=== PATIENT | female | born 1945 | race Caucasian/White ===

== ENCOUNTER → 2020-01-21 12:57 | Outpatient (CLI) | payer MEDICARE, SELFPAY ==
--- NOTE | ~2020-01-21 | MR_ITS ---
EXAMINATION: MR lumbar spine wo con DATE: 01/21/2020 14:15 INDICATION: Lumbago. Left-sided sciatica. TECHNIQUE: Magnetic resonance imaging (MRI) of the lumbar spine was performed without intravenous con trast. Sequences included sagittal T2-weighted FSE, sagittal T2-weighted FS FSE, sagittal STIR FSE, s agittal T1-weighted FSE, and axial T2-weighted FSE. COMPARISON: Lumbar spine MRI 03/24/2015 FINDINGS: There is 8 degrees levocurvature of lumbar spine. There is 3 mm retrolisthesis of L2 on L3, 4 mm anterolisthesis of L4 on L5, and 4 mm anterolisthesis of L5 on S1. There is a chronic compressi on fracture of L5 with changes of vertebroplasty. There are changes of posterior fusion procedure fro m L4 to S1 with pedicle screws. There is mildly decreased disc height at L2-L3, moderately decreased disc height at L3-L4 and L4-L5, and severely decreased disc height at L5-S1. The distal spinal cord s ignal intensity is normal. The conus medullaris is at L1-L2. The following disc levels are specifical ly discussed: L1-L2: The disc is bulging. There is mild bilateral facet joint osteoarthritis. There is mild left ne ural foraminal stenosis. There is mild central canal stenosis. L2-L3: The disc is bulging and has an annular fissure. There is mild bilateral facet joint osteoarthr itis. There is mild bilateral neural foraminal stenosis. There is mild central canal stenosis. L3-L4: The disc is bulging. There is severe bilateral facet joint osteoarthritis. There is moderate b ilateral neural foraminal stenosis. There is severe central canal stenosis. L4-L5: The disc is bulging and has an annular fissure. There is severe bilateral facet joint hypertro phy. There is mild bilateral neural foraminal stenosis. There is mild central canal stenosis with pos terior decompression. L5-S1: The disc is bulging and has an annular fissure. There is moderate bilateral facet joint hypert rophy. There is mild bilateral neural foraminal stenosis. There is mild central canal stenosis. IMPRESSION: 1. Severe lumbar spondylosis, worsened from 03/24/2015. 2. Posterior fusion procedure from L4 to S1. Reviewed, dictated and finalized at location A.
== END ==
PROVIDERS: PCP Nurse Practitioner Family; Visit Provider Nurse Practitioner
DX: M54.42 Lumbago with sciatica, left side (principal); M47.896 Other spondylosis, lumbar region; Z98.1 Arthrodesis status
CPT/HCPCS: 72148

== ENCOUNTER 2020-02-19 09:08 | Outpatient (CLI) | payer MEDICARE, SELFPAY ==
--- NOTE | ~2020-02-19 | MM_ITS ---
EXAMINATION: MM screening [facility] BI w aaron HISTORY: Screening mammogram TECHNIQUE: Craniocaudal and mediolateral oblique 3-D tomosynthesis images were obtained and synthetic 2-D images were generated. CAD analysis was submitted and interpreted. COMPARISON: 02/16/2019, 02/10/2018, 01/31/2017 BREAST PARENCHYMAL COMPOSITION: There are scattered areas of fibroglandular density. FINDINGS: There is no evidence of suspicious mass, calcification, or architectural distortion to sugg est malignancy in either breast. There has been no suspicious interval change. IMPRESSION: 1. No mammographic evidence of malignancy. 2. Recommend routine screening mammography in one year. BI-RADS Category 1: Negative Reviewed, dictated and finalized at location A.
== END 2020-02-19 09:09 | disposition home or self-care (01) ==
LOC: ANHIMG 09:10
PROVIDERS: PCP Nurse Practitioner Family; Visit Provider Nurse Practitioner Family
DX: Z12.31 Encounter for screening mammogram for malignant neoplasm of breast (principal)
CPT/HCPCS: 77063; 77067

== ENCOUNTER 2020-03-04 14:24 | Outpatient (CLI) | payer MEDICARE, SELFPAY ==
--- NOTE | ~2020-03-04 | XR_ITS ---
XR lumbar spine min 4V DATE: 03/04/2020 15:26 INDICATION: Spondylolisthesis with radiculopathy, greater on the right. TECHNIQUE: AP, lateral, coned lateral lumbosacral views. Flexion and extension lateral views COMPARISON: 01/21/2020 MRI lumbar spine FINDINGS: There is diffuse osteopenia. There is mild rotatory levoscoliosis of the lumbar spine. There is moderate anterior wedge compression fracture deformity of T9. In neutral position there is approximately 3 mm anterolisthesis at L4-5. This is stable in extension. However in flexion there is approximately 4 mm anterolisthesis at L3-4, 6 mm anterolisthesis at L4-5 and 7 mm anterolisthesis at L5-S1. Status post posterior surgical spinal fusion at L4-S1. Status post vertebroplasty at L5. Normal alignment at the sacroiliac joints. There is a very prominent amount of fecal material throughout most of the colon, consistent with cons tipation. IMPRESSION: Moderate anterior wedge compression fracture deformity of T9 Status post posterior spinal surgical fusion at L4-S1 Anterolisthesis at L3-4, L4-5 and L5-S1 in flexion, reduced in neutral and extension at L3-4 and L5-S 1, diminished at L4-5 in extension Diffuse osteopenia. Reviewed, dictated and finalized at location A. TING CONTRACT MINER IMPRESSION: Moderate anterior wedge compression fracture deformity of T9 Status post posterior spinal surgical fusion at L4-S1 Anterolisthesis at L3-4, L4-5 and L5-S1 in flexion, reduced in neutral and exte nsion at L3-4 and L5-S1, diminished at L4-5 in extension Diffuse osteopenia.
--- NOTE | ~2020-03-04 | CT_ITS ---
EXAMINATION: CT lumbar spine wo con DATE: 03/04/2020 15:11 INDICATION: Lumbar spondylosis with radiculopathy. TECHNIQUE: Computed tomography (CT) of the lumbar spine was performed without intravenous contrast. A utomated exposure control and iterative reconstruction technique were employed. The dose-length produ ct was 336.50 mGy-cm. COMPARISON: Lumbar spine MRI 01/21/2020 FINDINGS: There is 8 degrees levocurvature of lumbar spine. There is 3 mm retrolisthesis of L2 on L3 and 4 mm anterolisthesis of L4 on L5. There is a chronic compression fracture of L5 with less than 1/ 5 loss of height and changes of vertebroplasty. There are changes of posterior fusion procedure from L4 to S1 with pedicle screws. There is lucency around the S1 screws, consistent with loosening. There is moderately decreased disc height at L2-L3, severely decreased disc height at L3-L4, moderately de creased disc height at L4-L5, and severely decreased disc height at L5-S1. The following disc levels are specifically discussed: L1-L2: The disc is bulging. There is mild right and severe left facet joint osteoarthritis. There is mild left neural foraminal stenosis. There is mild central canal stenosis. L2-L3: The disc is bulging. There is mild bilateral facet joint osteoarthritis. There is mild right a nd moderate left neural foraminal stenosis. There is mild central canal stenosis. L3-L4: The disc is bulging. There is mild bilateral facet joint hypertrophy. There is hypertrophy of the ligamentum flavum. There is moderate bilateral neural foraminal stenosis. There is severe central canal stenosis. L4-L5: The disc does not extend beyond the endplate margin. There is no facet joint hypertrophy. Ther e is mild bilateral neural foraminal stenosis. There is mild central canal stenosis with posterior de compression. L5-S1: The disc is bulging. There is mild bilateral facet joint hypertrophy. There is mild bilateral neural foraminal stenosis. There is mild central canal stenosis with posterior decompression. IMPRESSION: 1. Severe lumbar spondylosis. 2. Posterior fusion procedure from L4 to S1 with loosening of the S1 screws. Reviewed, dictated and finalized at location A. RUMENT LENS GRINDER APPRENTICE
== END 2020-03-04 14:25 | disposition home or self-care (01) ==
PROVIDERS: PCP Nurse Practitioner Family; Visit Provider Neurological Surgery
DX: M47.26 Other spondylosis with radiculopathy, lumbar region (principal); M41.56 Other secondary scoliosis, lumbar region; Z98.1 Arthrodesis status; M85.88 Other specified disorders of bone density and structure, other site
CPT/HCPCS: 72110; 72131

== ENCOUNTER 2020-10-14 09:32 | Outpatient (CLI) | payer MEDICARE, SELFPAY ==
--- NOTE | 2020-10-18 15:02 | WPDHOLTEREM ---
Holter/Event Monitor Holter/Event Monitor Date of procedure: 10/14/20 Holter/Event Procedure: 48 Hr Holter Monitor Indications: Palpitations Conclusion: 1. 48 hour holter monitor on 10/14/20. 2. Underlying rhythm is sinus rhythm. HR range 54-143 bpm; average HR 82 bpm. 3. There are 1,698 premature supraventricular complexes, 14 supraventricular couplets, 3 supraventricular triplets, 3 supraventricular bigeminy and 26 supraventricular trigeminy. No supraventricular tachycardia. 4. There are 112 premature ventricular complexes. No ventricular tachycardia. 5. No sinoatrial or atrioventricular blocks. No significant pauses greater than 2 seconds. 6. No symptoms available for correlation.
== END 2020-10-14 09:33 | disposition home or self-care (01) ==
PROVIDERS: PCP Nurse Practitioner Family; Visit Provider Nurse Practitioner Family
DX: R00.2 Palpitations (principal)
CPT/HCPCS: 93225; 93226

== ENCOUNTER → 2021-04-28 10:54 | Outpatient (CLI) | payer MEDICARE, SELFPAY ==
--- NOTE | ~2021-04-28 | MM_ITS ---
EXAMINATION: MM screening [facility] BI w aaron HISTORY: Screening mammogram TECHNIQUE: Craniocaudal and mediolateral oblique 3-D tomosynthesis images were obtained and synthetic 2-D images were generated. CAD analysis was submitted and interpreted. COMPARISON: 02/19/2020, 02/16/2019, 02/10/2018 BREAST PARENCHYMAL COMPOSITION: There are scattered areas of fibroglandular density. FINDINGS: RIGHT BREAST: There is no evidence of suspicious mass, calcification, or architectural distortion to suggest malignancy. There has been no significant interval change. LEFT BREAST: There is a possible mass in the middle third of the slightly lower breast best appreciat ed 4 cm deep to and in line with the nipple axis on the craniocaudal view. IMPRESSION: 1. Possible left breast mass. 2. Additional mammographic views and possible breast ultrasound are recommended. BI-RADS Category 0: Incomplete: Needs additional imaging evaluation. Reviewed, dictated and finalized at location A. FIC AGENT IMPRESSION: 1. Possible left breast mass. 2. Additional mammographic views and possible breast ultrasound are recommended . BI-RADS Category 0: Incomplete: Needs additional imaging evaluation.
--- NOTE | ~2021-04-28 | DEXA_ITS ---
Bone Density Report Name: TORSTEN FISH Age: 76 Sex: Female Ethnicity: White Date of : 1945 Indication: osteopenia; height loss; prior fracture; postmenopausal Referring Provider: Rachel Friend Study: Bone densitometry was performed. Exam Date: April 28, 2021 Accession number: [id number] Bone Density: Region BMD T-score Z-score Classification AP Spine (L1, L2) 0.747 -2.1 0.1 Osteopenia Femoral Neck (Left) 0.824 -0.2 1.9 Normal Total Hip (Left) 0.859 -0.7 1.1 Normal Femoral Neck (Right) 0.822 -0.2 1.8 Normal Total Hip (Right) 0.874 -0.6 1.2 Normal Total Hip Mean 0.867 -0.7 1.2 Normal World Health Organization criteria for BMD impression classify patients as: Normal (T-score at or above -1.0), Osteopenia (T-score between -1.0 and -2.5), or Osteoporosis (T-score at or below -2.5). 10-year Fracture Risk(1): Major Osteoporotic Fracture 11% Hip Fracture 1.1% Reported Risk Factors: [place] (), Neck BMD=0.822, BMI=19.9, previous fracture (1) FRAX(R) Version 3.08. Fracture probability calculated for an untreated patient. Fracture probability may be lower if the patient has received treatment. Previous Exams: Region Exam Age BMD T-score BMD Change BMD Change Date g/cm2 vs Baseline vs Previous AP Spine(L1, L2) 04/28/2021 76 0.747 -2.1 -0.022 -0.022 11/21/2018 73 0.768 -1.9 Total Hip(Left) 04/28/2021 76 0.859 -0.7 -0.034* -0.034* 11/21/2018 73 0.893 -0.4 Total Hip(Right) 04/28/2021 76 0.874 -0.6 0.009 0.009 11/21/2018 73 0.865 -0.6 *Denotes significance at 95% confidence level, LSC for AP Spine = 0.022 g/cm2, LSC for Total Hip = 0.027 g/cm2 Clinical Information Provided by Patient: Has had a low trauma fracture Has used the following medications: Vitamin D, Calcium Patient maximum height was 66 Menopause Age: 53 Drinks caffeinated beverages Onset of menses at age 13 Number of children 3 Impression: The patient has low bone mass, based on the Total Spine T-score. The patient has an estimated ten-year risk of hip fracture of 1.1% and an estimated ten-year risk of major fracture of 11%, based on the WHO FRAX algorithm. The patient has risk factors, including: previous fracture. The BMD for the Total Hip(Left) decreased, changing by -0.034 since the last DXA exam. Discussion: BONE DENSITY IS LOW AT ONE OR MORE SKELETAL SITES. This patient's lowest
== END ==
PROVIDERS: PCP Family Medicine; Visit Provider Nurse Practitioner Family
DX: Z12.31 Encounter for screening mammogram for malignant neoplasm of breast (principal); Z78.0 Asymptomatic menopausal state; R92.8 Other abnormal and inconclusive findings on diagnostic imaging of breast; M85.88 Other specified disorders of bone density and structure, other site
CPT/HCPCS: 77063; 77067; 77080

== ENCOUNTER → 2021-05-15 09:15 | Outpatient (CLI) | payer MEDICARE, SELFPAY ==
--- NOTE | ~2021-05-15 | MM_ITS ---
EXAMINATION: MM diagnostic [facility] w aaron HISTORY: Possible left breast mass on screening mammogram TECHNIQUE: Additional 3-D tomosynthesis images of the left breast were performed and synthetic 2-D im ages were generated. CAD analysis was submitted and interpreted. COMPARISON: 04/28/2021, 02/19/2020, 02/16/2019 FINDINGS: There is a return to baseline fibroglandular appearance with spot compression of the left b reast in the area questioned on screening mammogram. IMPRESSION: 1. No mammographic evidence of malignancy. 2. Recommend routine screening mammography in one year. BI-RADS Category 1: Negative Reviewed, dictated and finalized at location A. F DIGITAL MEDIA OFFICER
== END ==
PROVIDERS: PCP Nurse Practitioner Family; Visit Provider Nurse Practitioner Family
DX: R92.8 Other abnormal and inconclusive findings on diagnostic imaging of breast (principal); N63.20 Unspecified lump in the left breast, unspecified quadrant
CPT/HCPCS: 77061; 77065; G0279

== ENCOUNTER 2021-11-24 07:58 | Outpatient (CLI) | payer MEDICARE, SELFPAY ==
[2021-11-24 20:04] LABS: Cholesterol 175 mg/dL (0-200); HDL Direct 92 mg/dL; Triglycerides 57 mg/dL (<150)
[2021-11-24 20:16] LABS: LDL Cholesterol Direct 61 mg/dL
== END 2021-11-24 07:59 | disposition home or self-care (01) ==
PROVIDERS: PCP Family Medicine; Visit Provider Nurse Practitioner Family
DX: E78.5 Hyperlipidemia, unspecified (principal); I10 Essential (primary) hypertension
CPT/HCPCS: 36415; 80061; 84443

== ENCOUNTER → 2022-03-31 09:43 | Outpatient (CLI) | payer MEDICARE, SELFPAY ==
--- NOTE | ~2022-03-31 | XR_ITS ---
EXAM: XR lumbar spine 2-3V DATE: 03/31/2022 11:08 HISTORY: Status post lumbar spinal fusion . COMPARISON: 03/04/2020. FINDINGS: Severe osteopenia. Extensive lumbar fusion hardware fixation spanning L1-S1 with incorporat ion of the posterolateral SI joints. Interbody devices are in appropriate position. No hardware fract ure or abnormal perihilar hardware lucency. 5 nonrib-bearing lumbar-type vertebral bodies. Severe ost eopenia. Lumbar scoliosis. Stable listheses at L4-5 and L5-S1. Moderate height loss at T12 and L1. IMPRESSION: Moderate vertebral body compression fractures at T12 and L1 of uncertain age, correlate w ith acute pain/tenderness. Reviewed, dictated and finalized at location K. ING TRACER IMPRESSION: Moderate vertebral body compression fractures at T12 and L1 of unce rtain age, correlate with acute pain/tenderness.
== END ==
DX: Z98.1 Arthrodesis status (principal); M48.54XA Collapsed vertebra, not elsewhere classified, thoracic region, initial encounter for fracture; M48.56XA Collapsed vertebra, not elsewhere classified, lumbar region, initial encounter for fracture
CPT/HCPCS: 72100

== ENCOUNTER 2022-06-15 03:06 | Day surgery (SDC) | payer MEDICARE, SELFPAY ==
[2022-06-15] VITALS (7 sets, daily range): BP systolic 156–179; BP diastolic 87–109; PULSE 77–85; RESP 14–26; TEMP 36.6; O2SAT 98–100; BMI 20.9
--- NOTE | 2022-06-15 09:25 | SUR.PREOP ---
DR. [employer] FROM [employer] HERE FOR LOOP RECORDER IMPLANT.
--- NOTE | 2022-06-15 09:49 | SUR.OPER ---
procedure notes: start 945 20ml of 1% lidocaine administered to left chest subcut by device inserted by md device checked connection with rep and 09 pressure held by pc,rn end 949 rep discussing device with patient 956 surgical glue applied with band aid dressing applied
--- NOTE | 2022-06-15 09:52 | P.PCNCC_ITS ---
Cardiac Cath Procedure Note Date of procedure:: 06/15/22 Performing physician:: Geovanny Dominguez MD Indication:: Palpitations/syncope Brief clinical history:: this is a 77-year-old woman with intermittent episodes of syncope in the sense of tachycardia / palpitations associated with this. She has not been able to have a diagnosis established despite outpatient monitoring and in this setting implantable loop recorder has been recommended. Procedure Procedure performed:: Implantation of [employer] LINQ 2 loop recorder Sedation/Medication given:: no sedation Access site:: left anterior chest wall Estimated blood loss:: minimal Procedure note:: patient was brought to the cardiac catheterization lab holding area in the postabsorptive state a nedra was made on the left anterior chest wall in the midclavicular line in the 4th intercostal space. This area was then draped and prepped in a sterile fashion. 1% lidocaine was infiltrated at the puncture site and in the intended location of the insertion inferior to the puncture site. The [employer] LINQ device/ kit was opened and the blade was used to create a puncture wound at the preformed marked. Following this the insertion tool was used to deploy the [employer] LINQ device inferior to the incision. The deployment was uneventful and uncomplicated. The area was held with manual pressure and a drop of bio glue and a Band-Aid was then placed. The telemetry from the LINQ device was favorable with R-wave sensing of 0.34 mV. Findings:: The patient received a [employer] LINQ 2 loop monitor [id number] serial [id number] . Conclusion:: successful uncomplicated implantation/deployment of [employer] LINQ loop recorder for evaluation of symptoms of intermittent tachycardia associated with syncope in this 77-year-old lady Geovanny Dominguez MD [facility]
--- NOTE | 2022-06-15 10:42 | SUR.OPER ---
patient able to dress with out complications, d/c instructions given with at bedside. all questions and concerns addressed. patient to follow up with incision check on 06/22/22, appointment made with office.
== END 2022-06-15 10:43 | disposition home or self-care (01) ==
PROVIDERS: PCP Nurse Practitioner Family; Visit Provider Specialist
PROC: (CPT 33285; principal; 2022-06-15 09:30)
DX: R55 Syncope and collapse (principal)
CPT/HCPCS: 33285; C1764

== ENCOUNTER 2022-06-19 11:00 | Outpatient (RCR) | payer MEDICARE, SELFPAY ==
--- NOTE | 2022-04-26 13:42 | PTOPEVAL1 ---
Assessment and note entered by Jj Cooper, PT, DPT Evaluation Information Assessment Status Evaluation Diagnosis status post lumbar fusion Onset 12/19/21 Subjective Information Pt states she had a complete lumbar fusion on 12/19. She completed 1 week of in patient rehab. She has been completing the exercises issued at rehab since then. She states she still has a lot of back pain. She states standing to make a meal is difficult and she has to sit during. Both sitting and standing for a prolonged period of time increase her pain. Pt states her goals is to be able to stand for an hour before a significant increase in pain. Reported Pain Level Pain Score 3: Self Report Assessment PT Clinical Summary Katina presents to therapy today for her initial evaluation with a diagnosis of post lumbar spinal fusion. Today she demonstrates good overall functional mobility. She reports high level of back pain with any prolonged position. She has increased tenderness to palpation through her marylu lumbar paraspinal muscle belly. She demonstrates significant hip weakness bilaterally. She ambulates at a good gait speed and with only minor gait deviations. Skilled physical therapy services are indicated to address the deficits noted above, to improve pain, to return to baseline mobility, and to promote optimal independence. Plan of Care Interventions Electrical Stimulation,Gait Training,Hot Pack/Cold Pack,Manual Therapy,Neuro Re-education,Patient/ Caregiver Educati,Prosthetic Training,Self-Care/ Home Management PT Services Indicated Yes Treatment Frequency and 2x/wk for 4 wks Duration These treatments will address the objective and functional deficits as defined above. The patient will be advanced safely and appropriately in order for the patient to progress towards his/her prior level of function. Additional exercises will be introduced and as well as a comprehensive home exercise program upon discharge, if needed, ?to ensure carryover of functional gains achieved in the clinic. This treatment plan has been reviewed and agreement upon by the patient.
--- NOTE | 2022-05-02 12:23 | PCPTNOTE ---
Patient canceled appointment this date due to conflicting appointment.
--- NOTE | 2022-05-15 08:08 | PCPTNOTE ---
Patient called to cancel appointment this date due to illness.
--- NOTE | 2022-05-24 12:46 | PTOPPROG ---
Assessment and note entered by Jj Cooper, PT, DPT Evaluation Information Assessment Status Progress Diagnosis status post lumbar fusion Onset 12/19/21 Subjective Information Pt states thinks are going pretty good. She states her sharp back pain has improved since her injections, she states she still has some muscle spasms. She states she was able to do free weights at home yesterday. She states she still has some fear with her balance. Pt reports 90% improvement in overall symptoms. Assessment PT Clinical Summary Katina presents to therapy today for her progress report following 6 visits of skilled therapy to treat her lumbar fusion. Today she demonstrates improved LE and core strength but is still decreased from expected. She has improved her overall mobility including limiting deviations with functional transfers. She continues to have balance deficits during functional tasks. She is progressing well towards her therapy and personal goals. Continuation of skilled physical therapy services are indicated to further address balance and strength deficits and to promote unlimited functional mobility. Plan of Care Interventions Electrical Stimulation,Gait Training,Hot Pack/Cold Pack,Manual Therapy,Neuro Re-education,Patient/ Caregiver Educati,Prosthetic Training,Self-Care/ Home Management PT Services Indicated Yes Treatment Frequency and 1x/wk for 4 wks Duration These treatments will address the objective and functional deficits as defined above. The patient will be advanced safely and appropriately in order for the patient to progress towards his/her prior level of function. Additional exercises will be introduced and as well as a comprehensive home exercise program upon discharge, if needed, ?to ensure carryover of functional gains achieved in the clinic. This treatment plan has been reviewed and agreement upon by the patient.
--- NOTE | 2022-06-19 11:49 | PTOPDC ---
Assessment and note entered by Jj Cooper, PT, DPT Evaluation Information Assessment Status Discharge Diagnosis status post lumbar fusion Onset 12/19/21 Subjective Information Pt states things are going great. She states this weekend she did a lot of exercises without any pain and soreness afterwards. She states she is on day 3 with 0/10 pain and has not even has to take a Tylenol. Pt reports over 100% improvement since starting therapy. Reported Pain Level Pain Score 0: Self Report Assessment PT Clinical Summary Katina presents to therapy today for her progress report following 10 visits of skilled therapy to treat her lumbar fusion. Today she has met all of her therapy goals. She demonstrates good LE strength and demonstrates no functional limitations. She will be discharged at this time with instructions to continue her HEP upon discharge. Plan of Care PT Services Indicated No Treatment Frequency and discharge Duration
== END 2022-06-19 13:28 | disposition home or self-care (01) ==
LOC: ANHGOSHPT 11:00
DX: Z98.1 Arthrodesis status (principal)
CPT/HCPCS: 97014; 97110; 97112; 97140; 97161; 97530; G0283

== ENCOUNTER 2022-10-23 10:03 | Emergency (ER) | payer MEDICARE, SELFPAY ==
--- NOTE | 2022-10-23 10:31 | ED.URI ---
HPI - URI/Sore Throat General Chief Complaint: Upper Respiratory Infection Stated Complaint: + COVID Time Seen by Provider: 10/23/22 10:58 Source: patient, RN notes reviewed and old records reviewed Mode of arrival: ambulatory Limitations: no limitations History of Present Illness HPI Narrative: 77-year-old female presents to the [facility] with complaints of scratchy throat that started Saturday. Cough started yesterday. Took 2 at home COVID tests and she reports them as positive. Requesting Paxlovid Onset (ago): day(s) (2) Related Data Home Medications Medication Instructions Recorded Confirmed biotin 800 mcg tablet 5,000 mcg PO DAILY 06/15/19 10/23/22 calcium carb-Ca gluc 500 mg 1 tablet PO DAILY 06/15/19 10/23/22 calcium-magnesium ox-Mg gluc 250 mg tablet lutein 40 mg capsule 40 mg PO DAILY 06/15/19 10/23/22 multivitamin 1 tablet PO DAILY 06/15/19 10/23/22 cholecalciferol (vitamin D3) 50 50 mcg PO DAILY 04/30/22 10/23/22 mcg (2,000 unit) capsule Allergies Allergy/AdvReac Type Severity Reaction Status Date / Time alendronate sodium AdvReac Mild rash/itching Verified 08/07/22 10:31 [From Fosamax] of lower legs Beta-Blockers AdvReac Unknown petechia Verified 08/07/22 08:54 (Beta-Adrenergic Bloc and vascular reaction to legs clarithromycin [From Biaxin] AdvReac Unknown extreme Verified 08/07/22 08:54 upset stomach erythromycin base AdvReac Unknown upset Verified 08/07/22 08:54 stomach tramadol AdvReac Unknown Nausea Verified 08/07/22 08:54 Review of Systems Review of Systems: All systems reviewed & are unremarkable except as noted in HPI and below Constitutional: Constitutional: Reports no additional constitutional complaints Eyes: Eyes: Reports no additional eye complaints ENT: Reports as per HPI Cardiovascular: Cardiovascular: Reports no additional cardiovascular complaints, Denies chest pain and Denies dyspnea Respiratory: Respiratory: Reports as per HPI, Denies chest congestion, Reports cough and Denies dyspnea Gastrointestinal: Gastrointestinal: Reports no additional gastrointestinal complaints, Denies abdominal pain, Denies nausea and Denies vomiting Musculoskeletal: Musculoskeletal: Reports no additional musculoskeletal complaints Integumentary/Breasts: Skin/Breast: Reports system reviewed and no additional complaints, except as docu Neurologic: Reports system reviewed and no additional complaints, except as documented Psychiatric: Psychiatric: Reports no additional psychiatric complaints Allergic/Immunologic: Allergic/Immunologic: Reports no additional allergic/immunologic complaints PMFSH Past Medical History Medical History Anxiety Arthralgia Essential (primary) hypertension GERD without esophagitis Hand and wrist extensor tendon rupture Headache, common migraine, intractable History of breast implant removal (~2011) Hyperlipidemia Low back pain with left-sided sciatica Osteopenia Osteopenia of spine T12 compression fracture (~11/2021) Tinnitus of left ear Surgical History Surgical History History of hand surgery EDC centralization LT-2016, RT-2013 History of laminectomy (~02/2016) L4-5-S1 S/P laminectomy with spinal fusion (~11/2021) Family History Family History Father , Suicide No problems noted. Grandparent , Stroke No problems noted. Grandparent , Stroke No problems noted. Social History Social History Social History: 3 cups of caffeine per day (coffee, tea) Smoking status: Never smoker Second hand tobacco smoke exposure: No Alcohol intake: current Drinks per week: 3 Alcohol use details: wine Substance use: never Substance use type: does
[2022-10-23 10:32] VITALS: BP 148/99; PULSE 79; RESP 16; TEMP 36; O2SAT 100
== END 2022-10-23 11:18 | disposition home or self-care (01) ==
PROVIDERS: Emergency Provider Nurse Practitioner; PCP Nurse Practitioner Family
DX: U07.1 COVID-19 (principal); I10 Essential (primary) hypertension; K21.9 Gastro-esophageal reflux disease without esophagitis; E78.5 Hyperlipidemia, unspecified; M85.88 Other specified disorders of bone density and structure, other site; F41.9 Anxiety disorder, unspecified
CPT/HCPCS: 87426; 99213; C9803; G0463

== ENCOUNTER 2022-12-03 09:39 | Emergency (ER) | payer MEDICARE, SELFPAY ==
[2022-12-03] VITALS (39 sets, daily range): BP systolic 69–129; BP diastolic 8–87; PULSE 46–100; RESP 8–22; O2SAT 94–100
--- NOTE | ~2022-12-03 | XR_ITS ---
EXAMINATION: XR ankle LT min 3V DATE: 12/03/2022 10:47 INDICATION: Lateral left ankle pain and swelling post fall TECHNIQUE: Anteroposterior, oblique, mortise, and lateral views of the left ankle were obtained. COMPARISON: None. FINDINGS: 1 displaced oblique fracture extending across the lateral malleolus, exhibiting the medial cortex at the level of the tibiotalar joint line. Alignment remains essentially anatomic. No other fractures id entified. Profiled joint spaces appear relatively preserved. No left ankle joint effusion. Prominent soft tissue swelling about the lateral malleolus. IMPRESSION: 1. Nondisplaced lateral malleolar fracture. Reviewed, dictated and finalized at location A.
--- NOTE | ~2022-12-03 | CT_ITS ---
EXAMINATION: CT facial & cervical spine wo DATE: 12/03/2022 10:37 INDICATION: Head injury. TECHNIQUE: Computed tomography (CT) of the maxillofacial region and cervical spine was performed with out intravenous contrast. Automated exposure control and iterative reconstruction technique were empl oyed. The dose-length product was 176.49 mGy-cm. COMPARISON: None FINDINGS: MAXILLOFACIAL CT: There is a comminuted fracture of the mandible including displaced fractures of the mandibular condyl es and mandibular body. There is mild mucosal thickening in the paranasal sinuses. There is dependent fluid in left maxillary sinus. The mastoid air cells are normal. There are likely changes of ocular lens replacement surgeries. CERVICAL SPINE CT: There is mild scarring at the lung apices. There is 13 degrees levoscoliosis of cervicothoracic spine . There is 2 mm anterolisthesis of C2 on C3 and C3 on C4 and 2 mm retrolisthesis of C4 on C5 and C5 o n C6. Vertebral body heights are normal. There is severely decreased disc height from C3-C4 through C 6-C7. The following disc levels are specifically discussed: C2-C3: There is mild bilateral uncovertebral joint osteoarthritis. There is severe bilateral facet nadia int osteoarthritis. There is mild bilateral neural foraminal stenosis. There is mild central canal st enosis. C3-C4: There is moderate bilateral uncovertebral joint osteoarthritis. There is severe bilateral face t joint osteoarthritis. There is mild right and moderate left neural foraminal stenosis. There is mil d central canal stenosis. C4-C5: There is severe bilateral uncovertebral joint osteoarthritis. There is moderate right and mild left facet joint osteoarthritis. There is mild bilateral neural foraminal stenosis. There is mild ce ntral canal stenosis. C5-C6: There is severe bilateral uncovertebral joint osteoarthritis. There is mild bilateral facet nadia int osteoarthritis. There is mild bilateral neural foraminal stenosis. There is mild central canal st enosis. C6-C7: There is moderate right and severe left uncovertebral joint osteoarthritis. There is mild bila teral facet joint osteoarthritis. There is mild bilateral neural foraminal stenosis. There is mild ce ntral canal stenosis. C7-T1: There is no uncovertebral joint osteoarthritis. There is mild right and moderate left facet nadia int osteoarthritis. There is mild left neural foraminal stenosis. There is no central canal stenosis. IMPRESSION: 1. Comminuted fracture of the mandible. 2. Severe cervical spondylosis. 3. Cervicothoracic levoscoliosis. Reviewed, dictated and finalized at location A.
--- NOTE | ~2022-12-03 | CT_ITS ---
EXAMINATION: CT brain wo con DATE: 12/03/2022 10:36 INDICATION: Syncope. TECHNIQUE: Computed tomography (CT) of the head was performed without intravenous contrast. The mA wa s adjusted according to patient size. Iterative reconstruction technique was employed. The dose-lengt h product was 605.33 mGy-cm. COMPARISON: None FINDINGS: There is no intracranial hemorrhage, acute infarction, or abnormal intracranial mass lesion . There are scattered areas of low attenuation in the cerebral white matter, which is within normal l imits for the patient's age. The ventricles are normal in size. There is mild mucosal thickening in t he paranasal sinuses. There are fractures of the mandibular condyles. IMPRESSION: 1. Normal aging brain. 2. Comminuted fracture of the mandible. Reviewed, dictated and finalized at location A.
--- NOTE | 2022-12-03 09:42 | ECG_ITS ---
Measurements Intervals [place] Rate: 71 P: 50 IN: 210 QRS: -56 QRSD: 106 T: 14 QT: 372 QTc: 405 Interpretive Statements POOR ECG QUALITY BECAUSE OF BASELINE ARTIFACT SINUS RHYTHM WITH FIRST DEGREE AV BLOCK POOR R-WAVE PROGRESSION INFERIOR MYOCARDIAL INFARCTION , PROBABLY OLD [40+ ms Q WAVE AND/OR ST/T ABNORMALITY IN II/aVF] ABNORMAL ECG NO PREVIOUS ECG AVAILABLE FOR COMPARISON Electronically Signed On 12-03-2022 16:57:08 CDT by Geovanny Dominguez M.D.
[2022-12-03 10:08] LABS: Basophils Absolute Auto 0.1 K/mm3 (0.0-0.1); Basophils Percent Auto 0.6 % (0.2-1.2); Eosinophils Absolute Auto 0.1 K/mm3 (0-0.3); Eosinophils Percent Auto 0.9 % (0-4.4); Hematocrit 42.7 % (37.0-47.0); Hemoglobin 14.2 g/dL (12.0-15.0); Immature Granulocyte Absolute 0.09 K/mm3 (0.00-0.031); Immature Granulocyte Percent A 0.6 % (0-0.5); Lymphocytes Absolute Auto 0.78 K/mm3 (0.9-3.2); Lymphocytes Percent Auto 5.5 % (18.3-44.2); Mean Corpuscular HGB Conc 33.3 g/dl (32-36); Mean Corpuscular Hemoglobin 32.1 pg (26-34); Mean Corpuscular Volume 96.6 fl (80-100); Mean Platelet Volume 8.7 fl (7.4-10.4); Monocytes Absolute Auto 0.9 K/mm3 (0.1-0.6); Monocytes Percent Auto 6.5 % (2.6-8.5); Neutrophils Absolute Auto 12.1 K/mm3 (1.3-6.7); Neutrophils Percent Auto 85.9 % (45.5-73.1); Platelet Count Result 276 k/mm3 (150-375); Red Blood Count 4.42 M/mm3 (4.2-5.4); Red Cell Distribution Width 13.2 % (11.5-14.5); White Blood Count 14.1 K/mm3 (4.5-10.0)
[2022-12-03 10:16] LABS: Alanine Aminotransferase 25 U/L (6-35); Albumin Level 4.2 g/dL (3.5-5.1); Alkaline Phosphatase 53 U/L (38-126); Anion Gap 5 mmol/L (8-16); Aspartate Amino Transferase 36 U/L (14-36); Bilirubin,Total 0.6 mg/dL (0.2-1.3); Blood Urea Nitrogen 19 mg/dL (7-17); Calcium 8.7 mg/dL (8.4-10.2); Carbon Dioxide 23 mmol/L (22-30); Chloride 97 mmol/L (98-107); Estimated CRCL calculation 65 ml/min; Estimated Glomerular Filt Rate > 60; Glucose 116 mg/dL (65-110); Sodium 125 mmol/L (137-145)
[2022-12-03] MEDS: TETANUS,DIPHTHERIA,AC PERTUSSIS ADULT (0.5 ML) BOOSTRIX IM (10:46)
[2022-12-03] MEDS: MORPHINE SULFATE (*CRX) 4 MG/ML INJ IV PUSH (10:46)
[2022-12-03] MEDS: ceFAZolin 2 GM/D5W 50 ML 2 GM/50 ML BAG IVPB (10:46)
[2022-12-03] MEDS: ONDANSETRON INJ 4 MG/2 ML VIAL IV PUSH (10:55)
[2022-12-03] MEDS: SODIUM CHLORIDE 0.9% IV 1,000 ML 999 ML IV CONT (11:10)
--- NOTE | 2022-12-03 11:30 | ED.GENADULT ---
HPI - General Adult General Chief complaint: Syncope Stated complaint: syncopal episode with facial/head injury Time Seen by Provider: 12/03/22 10:08 History of Present Illness HPI narrative: Patient is a 77-year-old female who presents ER status post syncope. Patient was walking to her kitchen when she suffered a syncopal event striking her head on the metal island in the home and then falling to the ground. heard the fall. Reports she is struggled with some dizziness episodes recently. Patient had no chest pain prior to the fall. She reports full loss of consciousness and does not recall striking anything on the way down. Patient now has headache and pain in her jaw. She feels as if her teeth are loose and moving. Patient unsure when her last tetanus shot was. She is not on any blood thinners. Related Data Home Medications Medication Instructions Recorded Confirmed biotin 800 mcg tablet 5,000 mcg PO DAILY 06/15/19 11/21/22 calcium carb-Ca gluc 500 mg 1 tablet PO DAILY 06/15/19 11/21/22 calcium-magnesium ox-Mg gluc 250 mg tablet lutein 40 mg capsule 40 mg PO DAILY 06/15/19 11/21/22 multivitamin 1 tablet PO DAILY 06/15/19 11/21/22 cholecalciferol (vitamin D3) 50 50 mcg PO DAILY 04/30/22 11/21/22 mcg (2,000 unit) capsule Allergies Allergy/AdvReac Type Severity Reaction Status Date / Time alendronate sodium AdvReac Mild rash/itching Verified 11/21/22 10:06 [From Fosamax] of lower legs Beta-Blockers AdvReac Unknown petechia Verified 11/21/22 10:06 (Beta-Adrenergic Bloc and vascular reaction to legs clarithromycin [From Biaxin] AdvReac Unknown extreme Verified 11/21/22 10:06 upset stomach erythromycin base AdvReac Unknown upset Verified 11/21/22 10:06 stomach tramadol AdvReac Unknown Nausea Verified 11/21/22 10:06 Review of Systems Review of Systems: All systems reviewed & are unremarkable except as noted in HPI and below Constitutional: Constitutional: Denies chills, Denies fatigue and Denies fever(s) ENT: Denies nasal congestion and Denies sore throat Comments: Jaw pain Cardiovascular: Cardiovascular: Denies chest pain and Denies radiating jaw, neck or arm pain Respiratory: Respiratory: Denies cough and Denies dyspnea Gastrointestinal: Gastrointestinal: Denies abdominal pain, Denies nausea and Denies vomiting Neurologic: Reports syncope, Reports headache(s), Denies focal weakness and Denies numbness PMF Past Medical History Medical History Anxiety Arthralgia Essential (primary) hypertension GERD without esophagitis Hand and wrist extensor tendon rupture Headache, common migraine, intractable History of breast implant removal (~2011) Hyperlipidemia Low back pain with left-sided sciatica Osteopenia Osteopenia of spine T12 compression fracture (~11/2021) Tinnitus of left ear Surgical History Surgical History History of hand surgery EDC centralization LT-2016, RT-2013 History of laminectomy (~02/2016) L4-5-S1 S/P laminectomy with spinal fusion (~11/2021) Family History Family History Father , Suicide No problems noted. Grandparent , Stroke No problems noted. Grandparent , Stroke No problems noted. Social History Social History Social History: 2 cups of caffeine per day (coffee, tea) Smoking status: Never smoker Second hand tobacco smoke exposure: No Alcohol intake: current Drinks per week: 3 Alcohol use details: wine Substance use: never Substance use type: does not use Lack of Transportation: No Lack of Food: Never True Current Housing: I Have Housing Concerned About Future Housing: No Difficulty Paying Gas/Electric Bills
[2022-12-03] MEDS: MORPHINE SULFATE (*CRX) 2 MG/ML INJ IV PUSH (13:50)
== END 2022-12-03 15:30 | disposition short-term general hospital (02) ==
PROVIDERS: Emergency Provider Emergency Medicine; PCP Nurse Practitioner Family
DX: S82.65XA Nondisplaced fracture of lateral malleolus of left fibula, initial encounter for closed fracture (principal); S02.612A Fracture of condylar process of left mandible, initial encounter for closed fracture; S02.611A Fracture of condylar process of right mandible, initial encounter for closed fracture; Z23 Encounter for immunization; I10 Essential (primary) hypertension; E78.5 Hyperlipidemia, unspecified; K21.9 Gastro-esophageal reflux disease without esophagitis; M85.80 Other specified disorders of bone density and structure, unspecified site; Z98.1 Arthrodesis status; M47.812 Spondylosis without myelopathy or radiculopathy, cervical region; W01.198A Fall on same level from slipping, tripping and stumbling with subsequent striking against other object, initial encounter
CPT/HCPCS: 29515; 36415; 70450; 70486; 72125; 73610; 80053; 85025; 90471; 90715; 93005; 96361; 96374; 96375; 96376; 99285; J0690; J2270; J2405; J7030

== ENCOUNTER → 2023-01-31 11:21 | Outpatient (CLI) | payer MEDICARE, SELFPAY ==
--- NOTE | ~2023-01-31 | MM_ITS ---
EXAMINATION: MM screening ezequiel BI w aaron HISTORY: Screening mammogram TECHNIQUE: Craniocaudal and mediolateral oblique 3-D tomosynthesis images were obtained and synthetic 2-D images were generated. CAD analysis was submitted and interpreted. COMPARISON: 05/15/2021 diagnostic left mammogram 04/28/2021, 02/19/2020 bilateral screening mammogram examinations BREAST PARENCHYMAL COMPOSITION: The breasts are heterogeneously dense, which may obscure small masses . FINDINGS: A radiopaque monitor device is noted in the left breast. There is no evidence of suspicious mass, calcification, or architectural distortion to suggest malignancy in either breast. There has b een no suspicious interval change. IMPRESSION: 1. No mammographic evidence of malignancy. 2. Recommend routine screening mammography in one year. BI-RADS Category 1: Negative Reviewed, dictated and finalized at location A.
== END ==
PROVIDERS: PCP Nurse Practitioner Family; Visit Provider Nurse Practitioner Family
DX: Z12.31 Encounter for screening mammogram for malignant neoplasm of breast (principal)
CPT/HCPCS: 77063; 77067

== ENCOUNTER 2023-03-01 02:50 | Day surgery (SDC) | payer MEDICARE, SELFPAY ==
[2023-02-18 14:26] VITALS: BMI 19.9
--- NOTE | 2023-02-27 11:34 | SUR.PREOP ---
Patient called regarding upcoming procedure. Reviewed preop instructions, appointment times, and procedure prep.
[2023-03-01 06:40] VITALS: BP 119/80; PULSE 87; RESP 18; TEMP 36.2; O2SAT 100; BMI 19.8
--- NOTE | 2023-03-01 07:14 | WPDANESEPPF ---
Anes - Initial Pre Proc Eval Procedure: Operation Date: 03/01/23 08:00 Proposed Procedures p Screening Colonoscopy - Payam Day MD Date/Time: 03/01/23 07:14 Surgeon: Payam Day MD Pre Op Diagnosis: neoplasm screening Patient Data Age: 77 Gender: F Height: 1.6 m Weight: 50.6 kg Last Vital Signs Temp 36.2 C L 03/01/23 06:40 Pulse 87 03/01/23 06:40 Resp 18 03/01/23 06:40 BP 119/80 03/01/23 06:40 Pulse Ox 100 03/01/23 06:40 O2 Del Method Room Air 03/01/23 06:40 Allergies Allergy/AdvReac Type Severity Reaction Status Date / Time alendronate sodium AdvReac Mild rash/itching Verified 02/18/23 14:20 [From Fosamax] of lower legs Beta-Blockers AdvReac Unknown petechia Verified 02/18/23 14:20 (Beta-Adrenergic Bloc and vascular reaction to legs clarithromycin [From Biaxin] AdvReac Unknown extreme Verified 02/18/23 14:20 upset stomach erythromycin base AdvReac Unknown upset Verified 02/18/23 14:20 stomach tramadol AdvReac Unknown Nausea Verified 02/18/23 14:20 Home Medications Medication Instructions Recorded Confirmed Type biotin 800 mcg tablet 5,000 mcg PO DAILY 06/15/19 02/18/23 History calcium carb-Ca gluc 500 mg 1 tablet PO DAILY 06/15/19 02/18/23 History calcium-magnesium ox-Mg gluc 250 mg tablet lutein 40 mg capsule 40 mg PO DAILY 06/15/19 02/18/23 History multivitamin 1 tablet PO DAILY 06/15/19 02/18/23 History cholecalciferol (vitamin D3) 50 50 mcg PO DAILY 04/30/22 02/18/23 History mcg (2,000 unit) capsule lisinopril 40 mg tablet 40 mg PO DAILY #90 tabs 11/01/22 02/18/23 Rx meloxicam 15 mg tablet 15 mg PO DAILY #90 tabs 11/05/22 02/18/23 Rx methocarbamol 750 mg tablet 750 mg PO TID PRN muscle spasm #90 11/12/22 02/18/23 Rx tabs ipratropium bromide 21 mcg (0.03 2 spray intranasal TID #30 mL 12/14/22 02/18/23 Rx %) nasal spray alprazolam 0.25 mg tablet 0.25 mg PO BID PRN anxiety #40 tabs 01/22/23 02/18/23 Rx simvastatin 10 mg tablet 10 mg PO DAILY #90 tabs 02/20/23 03/01/23 Rx Patient hx anesthesia problems: none Family hx anesthesia problems: none Results Review: All pre-operative results and documents have been reviewed as part of the pre-operative evaluation. [facility] Past Medical History Medical History Anxiety Arthralgia Essential (primary) hypertension GERD without esophagitis Hand and wrist extensor tendon rupture Headache, common migraine, intractable History of breast implant removal (~2011) Hyperlipidemia Low back pain with left-sided sciatica Osteopenia Osteopenia of spine T12 compression fracture (~11/2021) Tinnitus of left ear Surgical History Surgical History History of hand surgery EDC centralization LT-2016, RT-2013 History of laminectomy (~02/2016) L4-5-S1 S/P laminectomy with spinal fusion (~11/2021) Family History Family History Father , Suicide No problems noted. Grandparent , Stroke No problems noted. Grandparent , Stroke No problems noted. Social History Social History Social History: 2 cups of caffeine per day (coffee, tea) Smoking status: Never smoker Second hand tobacco smoke exposure: No Alcohol intake: current Drinks per week: 4 Alcohol use details: wine Substance use: never Substance use type: does not use Lack of Transportation: No Lack of Food: Never True Current Housing: I Have Housing Concerned About Future Housing: No Difficulty Paying Gas/Electric Bills: No Difficulty Paying for Meds: No Currently Unemployed: No Education: Bachelor's Degree Difficulty w/ Childcare or Family Care: No Living arrangements: with family
[2023-03-01] MEDS: LACTATED RINGERS 1,000 ML 150 ML IV CONT (07:24)
--- NOTE | 2023-03-01 07:48 | PM.HPGS ---
History of Present Illness History of Present Illness Consent: Risks, benefits, and alternatives have been discussed and questions answered. Patient agrees to proceed with procedure. Chief complaint: neoplasm screening Narrative: Katina Vinson is a 77 year old female here for screening colonoscopy, last time 10 years ago Review of Systems Constitutional: Constitutional: Denies headache(s) and Denies weakness Eyes: Eyes: Denies blurry vision ENT: Reports Normal hearing present, Denies headache(s) and Denies neck pain Cardiovascular: Cardiovascular: Denies chest pain and Denies dyspnea Respiratory: Respiratory: Denies dyspnea Gastrointestinal: Gastrointestinal: Reports no additional gastrointestinal complaints Genitourinary: Genitourinary: Denies dysuria Musculoskeletal: Musculoskeletal: Denies neck pain Integumentary/Breasts: Skin/Breast: Denies dry skin Neurologic: Reports Normal hearing present, Denies headache(s) and Denies weakness Psychiatric: Psychiatric: Denies anxiety Endocrine: Endocrine: Denies change in body appearance Hematologic/Lymphatic: Hematologic/Lymphatic: Denies easy bleeding Allergic/Immunologic: Allergic/Immunologic: Denies urticaria PMFSH Past Medical History Medical History Anxiety Arthralgia Essential (primary) hypertension GERD without esophagitis Hand and wrist extensor tendon rupture Headache, common migraine, intractable History of breast implant removal (~2011) Hyperlipidemia Low back pain with left-sided sciatica Osteopenia Osteopenia of spine T12 compression fracture (~11/2021) Tinnitus of left ear Surgical History Surgical History History of hand surgery EDC centralization LT-2016, RT-2013 History of laminectomy (~02/2016) L4-5-S1 S/P laminectomy with spinal fusion (~11/2021) Family History Family History Father , Suicide No problems noted. Grandparent , Stroke No problems noted. Grandparent , Stroke No problems noted. Social History Social History Social History: 2 cups of caffeine per day (coffee, tea) Smoking status: Never smoker Second hand tobacco smoke exposure: No Alcohol intake: current Drinks per week: 4 Alcohol use details: wine Substance use: never Substance use type: does not use Lack of Transportation: No Lack of Food: Never True Current Housing: I Have Housing Concerned About Future Housing: No Difficulty Paying Gas/Electric Bills: No Difficulty Paying for Meds: No Currently Unemployed: No Education: Bachelor's Degree Difficulty w/ Childcare or Family Care: No Living arrangements: with family Additional living arrangements comments: . Has 3 children. 4 grandchildren. Children live out of town. Occupation/Education: retired Gender identity (if verbalized by the patient): Female Spiritual care concerns: No Agree to blood products: Yes Meds Home Medications and Allergies Home Medications Medication Instructions Recorded Confirmed Type biotin 800 mcg tablet 5,000 mcg PO DAILY 06/15/19 02/18/23 History calcium carb-Ca gluc 500 mg 1 tablet PO DAILY 06/15/19 02/18/23 History calcium-magnesium ox-Mg gluc 250 mg tablet lutein 40 mg capsule 40 mg PO DAILY 06/15/19 02/18/23 History multivitamin 1 tablet PO DAILY 06/15/19 02/18/23 History cholecalciferol (vitamin D3) 50 50 mcg PO DAILY 04/30/22 02/18/23 History mcg (2,000 unit) capsule lisinopril 40 mg tablet 40 mg PO DAILY #90 tabs 11/01/22 02/18/23 Rx meloxicam 15 mg tablet 15 mg PO DAILY #90 tabs 11/05/22 02/18/23 Rx methocarbamol 750 mg tablet 750 mg PO TID PRN muscle spasm #90 11/12/22 02/18/23 Rx tabs ipratropium bromide 21 mcg (0.03 2 spra
[2023-03-01 08:37] VITALS: BP 115/70; PULSE 81; RESP 18; O2SAT 100
[2023-03-01 08:47] VITALS: BP 115/69; PULSE 95; RESP 32; O2SAT 94
[2023-03-01 08:57] VITALS: BP 123/59; PULSE 86; RESP 23; O2SAT 100
== END 2023-03-01 09:10 | disposition home or self-care (01) ==
PROVIDERS: PCP Nurse Practitioner Family; Visit Provider Internal Medicine Gastroenterology
PROC: 0DJD8ZZ Inspection of Lower Intestinal Tract, Via Natural or Artificial Opening Endoscopic (ICD-10-PCS; CPT 45378; principal; 2023-03-01 08:00)
DX: Z12.11 Encounter for screening for malignant neoplasm of colon (principal); D12.0 Benign neoplasm of cecum; K64.8 Other hemorrhoids; K64.4 Residual hemorrhoidal skin tags; I10 Essential (primary) hypertension; K21.9 Gastro-esophageal reflux disease without esophagitis; E78.5 Hyperlipidemia, unspecified; F41.9 Anxiety disorder, unspecified; Z98.1 Arthrodesis status
CPT/HCPCS: 45381; 45385; 88305; J2371; J2704; J7120

== ENCOUNTER 2023-05-08 10:25 | Outpatient (CLI) | payer MEDICARE, SELFPAY ==
[2023-05-08 13:10] LABS: Basophils Absolute Auto 0.1 K/mm3 (0.0-0.1); Basophils Percent Auto 1.1 % (0.2-1.2); Eosinophils Absolute Auto 0.2 K/mm3 (0-0.3); Eosinophils Percent Auto 4.3 % (0-4.4); Hematocrit 35.4 % (37.0-47.0); Hemoglobin 10.8 g/dL (12.0-15.0); Immature Granulocyte Absolute 0.01 K/mm3 (0.00-0.031); Immature Granulocyte Percent A 0.2 % (0-0.5); Lymphocytes Absolute Auto 0.94 K/mm3 (0.9-3.2); Mean Corpuscular HGB Conc 30.5 g/dl (32-36); Mean Corpuscular Hemoglobin 25.8 pg (26-34); Mean Corpuscular Volume 84.7 fl (80-100); Mean Platelet Volume 9.1 fl (7.4-10.4); Monocytes Absolute Auto 0.7 K/mm3 (0.1-0.6); Monocytes Percent Auto 14.7 % (2.6-8.5); Neutrophils Absolute Auto 2.8 K/mm3 (1.3-6.7); Neutrophils Percent Auto 59.7 % (45.5-73.1); Platelet Count Result 329 k/mm3 (150-375); Red Blood Count 4.18 M/mm3 (4.2-5.4); Red Cell Distribution Width 14.3 % (11.5-14.5); White Blood Count 4.7 K/mm3 (4.5-10.0)
[2023-05-08 13:30] LABS: Alanine Aminotransferase 18 U/L (6-35); Albumin Level 4.4 g/dL (3.5-5.1); Alkaline Phosphatase 59 U/L (38-126); Anion Gap 7 mmol/L (8-16); Aspartate Amino Transferase 52 U/L (14-36); Bilirubin,Total 0.6 mg/dL (0.2-1.3); Blood Urea Nitrogen 17 mg/dL (7-17); Calcium 9.7 mg/dL (8.4-10.2); Carbon Dioxide 29 mmol/L (22-30); Chloride 96 mmol/L (98-107); Estimated Glomerular Filt Rate > 60; Glucose 83 mg/dL (65-110); Sodium 132 mmol/L (137-145)
[2023-05-10 23:57] LABS: Vitamin D 1,25 (OH)2 Total 34 pg/mL (18-72); Vitamin D2 1,25 (OH)2 <8 pg/mL; Vitamin D3 1,25 (OH)2 34 pg/mL
== END 2023-05-08 10:26 | disposition home or self-care (01) ==
LOC: ANHGOSHLAB 10:26
PROVIDERS: PCP Nurse Practitioner Family; Visit Provider Nurse Practitioner Family
DX: E55.9 Vitamin D deficiency, unspecified (principal); I10 Essential (primary) hypertension
CPT/HCPCS: 36415; 80053; 82652; 85025

== ENCOUNTER 2023-12-06 07:55 | Outpatient (CLI) | payer MEDICARE, SELFPAY ==
[2023-12-06 13:59] LABS: Kit Draw Collected
== END 2023-12-06 07:56 | disposition home or self-care (01) ==
LOC: ANHGOSHLAB 07:57
PROVIDERS: PCP Nurse Practitioner Family; Visit Provider Nurse Practitioner Family
DX: E78.5 Hyperlipidemia, unspecified (principal); R53.83 Other fatigue; I10 Essential (primary) hypertension
CPT/HCPCS: 36415

== ENCOUNTER 2024-05-13 10:46 | Outpatient (CLI) | payer MEDICARE, SELFPAY ==
--- NOTE | ~2024-05-13 | MM_ITS ---
EXAMINATION: MM screening ezequiel BI w aaron HISTORY: Screening TECHNIQUE: Craniocaudal and mediolateral oblique 3-D tomosynthesis images were obtained and synthetic 2-D images were generated. CAD analysis was submitted and interpreted. COMPARISON: Comparison to multiple prior studies sequentially, with oldest reviewed study dated 01/21. BREAST PARENCHYMAL COMPOSITION: Not dense: There are scattered areas of fibroglandular density. FINDINGS: There is no evidence of suspicious mass, calcification, or architectural distortion to sugg est malignancy in either breast. There has been no suspicious interval change. IMPRESSION: 1. No mammographic evidence of malignancy. 2. Recommend routine screening mammography in one year. BI-RADS Category 1: Negative Reviewed, dictated and finalized at location A. IFIED CAREGIVER
== END 2024-05-13 10:47 | disposition home or self-care (01) ==
LOC: MICIMG 10:47
PROVIDERS: PCP Nurse Practitioner Family; Visit Provider Nurse Practitioner Family
DX: Z12.31 Encounter for screening mammogram for malignant neoplasm of breast (principal)
CPT/HCPCS: 77063; 77067

== ENCOUNTER 2024-05-21 12:37 | Outpatient (CLI) | payer MEDICARE, SELFPAY ==
--- NOTE | ~2024-05-21 | DEXA_ITS ---
Bone Density Report Name: TORSTEN FISH Age: 79 Sex: Female Ethnicity: White Date of : 1945 Indication: postmenopausal; screening for osteoporosis; height loss; Referring Provider: RAMOS SIMS Study: Bone densitometry was performed. Exam Date: May 21, 2024 Accession number: [id number] Bone Density: Region BMD T-score Z-score Classification Femoral Neck (Left) 0.797 -0.5 1.8 Normal Total Hip (Left) 0.811 -1.1 0.9 Osteopenia Femoral Neck (Right) 0.798 -0.5 1.8 Normal Total Hip (Right) 0.868 -0.6 1.3 Normal Femoral Neck Mean 0.797 -0.5 1.8 Normal Total Hip Mean 0.839 -0.8 1.1 Normal World Health Organization criteria for BMD impression classify patients as: Normal (T-score at or above -1.0), Osteopenia (T-score between -1.0 and -2.5), or Osteoporosis (T-score at or below -2.5). Clinical Information Provided by Patient: Has used the following medications: Boniva (i.e. ibandronate), Fosamax (i.e. alendronate), HRT (i.e. estrogen/hormone therapy), Vitamin D, Calcium Patient maximum height was 65 Menopause Age: 53 No regular weight bearing exercise Onset of menses at age 13 Number of children 3 Impression: The patient has low bone mass, based on the Left Total Hip T-score. Discussion: BONE DENSITY IS LOW AT ONE OR MORE SKELETAL SITES. This patient's lowest T-score is low at one or more skeletal sites. It meets the World Health Organization's (WHO) criteria for ?low bone mass? (T-score between -1.0 and -2.5). The patient's 10-year risk of fracture as calculated by FRAX is less than the threshold where pharmacological therapy is recommended by the National Osteoporosis Foundation (NOF). However, all treatment decisions require clinical judgment and consideration of individual patient factors, including patient preferences, comorbidities, previous drug use, risk factors not captured in the FRAX model (e.g., frailty, falls, vitamin D deficiency, increased bone turnover, interval significant decline in bone density) and possible under or overestimation of fracture risk by FRAX. The patient should follow a healthful lifestyle (good nutrition with adequate calcium and vitamin D, and appropriate weight-bearing exercise). Follow-Up: Consider repeating this study in 2 to 3 years to reassess this patient's status, or sooner if there is some new clinical indication. Reported by: GRUPO on 05/21/2024 1:01:00 PM. Reviewed, dictated and finalized at location A.
--- OUTSIDE RECORDS SUMMARY | 2024-05-21 13:21 | XMS_ITS | Encounter Summary ---
Author Organization [facility] Care Team Providers Care Lettuce Trimmer Name Role Phone Tara Hudson MD Primary Care Provider [phone] Gege Herrera MD Primary Care Provider Rachel Friend FERRY TERMINAL AGENT Primary Care Provider [phone] Emily Clements FERRY TERMINAL AGENT Primary Care Provider [phone] Rachel Friend FERRY TERMINAL AGENT Primary Care Provider [phone] Encounter Details Date Type Department Care Team (Latest Contact Info) Description 12/02/2017 Orders Only MMG CLINCONV ProviderAlhaji MD [address] [place] [address] Social History Tobacco Use Types Packs/Day Years Used Date Smoking Tobacco: Never Assessed Comments Unknown Sex and Gender Information Value Date Recorded Sex Assigned at Not on file Legal Sex Female 1:32 AM LINEN ROOM 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 us Historical Provider Final Res ult documented in this encounter Visit Diagnoses Not on filedocumented in this encounter Care Teams Lettuce Trimmer Relationship Specialty Start Date End Date Tara Hudson MD [address] [facility] [address] [place] [address] PCP - General 12/17/16 11/02/19 Gege Herrera MD [address] [address] PCP - General Family Medicine 11/03/19 10/16/20 Rachel Friend NP [address] [address] PCP - General Family Medicine 10/17/20 01/09/23 Emily Clements NP [address] [place] [address] PCP - General Nurse Practitioner 01/10/23 11/25/23 Rachel Friend NP [address] [place] [address] PCP - General Family Medicine 11/26/23 documented as of this encounter
--- OUTSIDE RECORDS SUMMARY | 2024-05-21 13:21 | XMS_ITS | Patient Health Summary ---
Author Organization [facility] Address [address] [place] [address] Care Team Providers Care Creative Services Director Name Role Phone Tara Hudson MD Primary Care Provider [phone] Note from [facility] [place] [facility] [place]non-owned Affiliates and Associated Physician Practices is amultiple site organization consisting of ambulatory clinics and hospital sitesin [place], [place], [place] and [place]. This disclosure is being madepursuant to the Care Everywhere program and may not contain all information available regarding this patient. Last updated 18.[facility] Allergies * Clarithromycin(GI Discomfort) * Erythromycin(GI Discomfort) Medications * Be aware that medications may not be up to date on this document. Alwaysverify current medications with the patient. * LISINOPRIL PO * DICLOFENAC & DIET MANAGE PROD PO Social History Tobacco Use Types Packs/Day Years Used Date Smoking Tobacco: Never Smokeless Tobacco: Never Sex and Gender Information Value Date Recorded Sex Assigned at Not on file Gender Identity Not on file Sexual Orientation Not on file Last Filed Vital Signs Vital Sign Reading Time Taken Comments Blood Pressure 128/72 05/27/2018 12:26 PM WEB SOLUTIONS ARCHITECT Pulse 80 05/27/2018 12:26 PM WEB SOLUTIONS ARCHITECT Temperature 37 ??C (98.6 ??F) 05/27/2018 12:26 PM WEB SOLUTIONS ARCHITECT Respiratory Rate 16 05/27/2018 12:26 PM WEB SOLUTIONS ARCHITECT Oxygen Saturation 100% 05/27/2018 12:26 PM WEB SOLUTIONS ARCHITECT Inhaled Oxygen Concentration - - Weight 52.2 kg (115 lb) 05/27/2018 12:26 PM WEB SOLUTIONS ARCHITECT Height 162.6 cm (5' 4 ) 05/27/2018 12:26 PM WEB SOLUTIONS ARCHITECT Body Mass Index 19.74 05/27/2018 12:26 PM WEB SOLUTIONS ARCHITECT Procedures * CULTURE URINE(Performed 05/27/2018) Performed for Acute cystitis with hematuria * URINALYSIS AUTO - POINT OF CARE (AMB) STL(Performed 05/27/2018) Performed for Acute cystitis with hematuria Results * (ABNORMAL) CULTURE URINE (05/27/2018 2:37 PM WEB SOLUTIONS ARCHITECT) Culture (A) QUEST Comment: ??CULTURE, URINE, ROUTINE ?MICRO NUMBER: ?[id number] ??TEST STATUS: ? FINAL ??SPECIMEN SOURCE: ?? URINE ??SPECIMEN QUALITY: ??ADEQUATE ??RESULT: ?Greater than 100,000 CFU/mL of Escherichia coli ?E.coli ?INT ?? KAYLA ?? AMOX/CLAVULANATE ? S ? 4 ?? AMPICILLIN ? S ? 8 ?? AMP/SULBACTAM ?S ? 4 ?? CEFAZOLIN ?NR ?<=4 2 ?? CEFEPIME ? S ? <=1 ?? CEFTRIAXONE ?S ? <=1 ?? CIPROFLOXACIN ?R ? >=4 ?? ERTAPENEM ?S ? <=0.5 ?? GENTAMICIN ? S ? <=1 ?? IMIPENEM ? S ? <=0.25 ?? LEVOFLOXACIN ? R ? >=8 ?? NITROFURANTOIN ? S ? <=16 ?? PIP/TAZOBACTAM ? S ? <=4 ?? TOBRAMYCIN ? S ? <=1 ?? TRIMETHOPRIM/SULFA ? S ? <=20 S=Susceptible ??I=Intermediate ??R=Resistant ??* = Not Tested NR = Not Reported ??NN = See Therapy Comments THERAPY COMMENTS ?Note 1: ?For infections other than uncomplicated UTI ?caused by E. coli, K. pneumoniae or P. mirabilis: ?Cefazolin is resistant if KAYLA > or = 8 mcg/mL. ?(Distinguishing susceptible versus intermediate ?for isolates with KAYLA < or = 4 mcg/mL requires ?additional testing.) ?Note 2: ?For uncomplicated UTI caused by E. coli, ?K. pneumoniae or P. mirabilis: Cefazolin is ?susceptible if KAYLA <32 mcg/mL and predicts ?susceptible to the oral agents cefaclor, cefdinir, ?cefpodoxime, cefprozil, cefuroxime, cephalexin ?and loracarbef. Test Performed at: [facility] ??[id number] EILEEN ALFRED MD Urine URINE SPECIMEN OBTAINED BY CLEAN CATCH PROCEDURE / Unknown 05/27/2018 2:37 PM WEB SOLUTIONS ARCHITECT 05/28/2018 1:06 AM WEB SOLUTIONS ARCHITECT [facility] - MICROBIOLOG Y ORDERABLES [address] [address] * (ABNORMAL) URINALYSIS AUTO - POINT OF CARE (AMB) STL (05/27/2018 2:19 PM WEB SOLUTIONS ARCHITECT) Clarity UA POCT cloudy Color UA POCT orange Leukocyte UA 70+ Negative Nitrite UA POCT negative Negative Urobilinogen UA 0.2 0.1 - 1.0 Protein UA POCT 15+ Negative pH UA 6.5 5.0 - 8.0 pH units Blood UA 5-10 Negative Specific Leo UA POCT 1.010 1.002 - 1.030 Ketone UA negative Negative Bilirubin UA POCT negative Negative Glucose UA negative Negative Expiration Date [id number] Lot # [id number] QC Verified Yes Yes Urine URINE / Unknown 05/27/2018 2 :19 PM WEB SOLUTIONS ARCHITECT Evelyn [facility] - POINT OF CA RE ORDERABLES Care Teams Creative Services Director Relationship Specialty Start Date End Date Tara Hudson MD [address] [id number] PCP - General 12/12/12
--- OUTSIDE RECORDS SUMMARY | 2024-05-21 13:21 | XMS_ITS | Encounter Summary ---
Author Organization [facility] Care Team Providers Care Director Of Home Economics Name Role Phone Tara Hudson MD Primary Care Provider [phone] Gege Herrera MD Primary Care Provider Rachel Friend CONSTRUCTION SUPERINTENDENT Primary Care Provider [phone] Emily Clements CONSTRUCTION SUPERINTENDENT Primary Care Provider [phone] Rachel Friend CONSTRUCTION SUPERINTENDENT Primary Care Provider Encounter Details Date Type Department Care Team (Latest Contact Info) Description 02/22/2016 Orders Only MMG CLINCONV ProviderAlhaji MD [address] [place] [address] Social History Tobacco Use Types Packs/Day Years Used Date Smoking Tobacco: Never Assessed Comments Unknown Sex and Gender Information Value Date Recorded Sex Assigned at Not on file Legal Sex Female 1:32 AM CORROSION CONTROL SPECIALIST Gender Identity Female 12/12/2018 8:34 AM CDT Sexual Orientation Straight 12/12/2018 8: 34 AM CDT documented as of this encounter Plan of Treatment Not on file documented as of this encounter Procedures Procedure Name Priority Date/Time Associated Diagnosis Comments PROCEDURE - RESULT 02/22/2016 12 :00 AM CDT PROCEDURE - RESULT 02/22/2016 12 :00 AM CDT PROCEDURE - RESULT 02/22/2016 12 :00 AM CDT documented in this encounter Results * PROCEDURE - RESULT (02/22/2016 12:00 AM CDT) Narrative 02/22/2016 12:00 AM CDT Ordered by an unspecified provider. Historical Provider MD Final Res ult * PROCEDURE - RESULT (02/22/2016 12:00 AM CDT) Narrative 02/22/2016 12:00 AM CDT Ordered by an unspecified provider. Historical Provider MD Final Res ult * PROCEDURE - RESULT (02/22/2016 12:00 AM CDT) Narrative 02/22/2016 12:00 AM CDT Ordered by an unspecified provider. [facility] Provider MD Final Res ult documented in this encounter Visit Diagnoses Not on filedocumented in this encounter Care Teams Director Of Home Economics Relationship Specialty Start Date End Date Tara Hudson MD [address] [address] PCP - General 12/17/16 11/02/19 Gege Herrera MD [address] [address] PCP - General Family Medicine 11/03/19 10/16/20 Rachel Friend NP [address] [place] [address] PCP - General Family Medicine 10/17/20 01/09/23 Eimly Clements NP [address] [place] [address] PCP - General Nurse Practitioner 01/10/23 11/25/23 Rachel Friend NP [address] [place] [address] PCP - General Family Medicine 11/26/23 documented as of this encounter
--- OUTSIDE RECORDS SUMMARY | 2024-05-21 13:21 | XMS_ITS | Encounter Summary ---
Author Organization [facility] Care Team Providers Care Mutual Fund Sales Agent Name Role Phone Tara Hudson MD Primary Care Provider Gege Herrera MD Primary Care Provider Rachel Friend UKE OPERATOR Primary Care Provider [phone] Emily Clements UKE OPERATOR Primary Care Provider [phone] Rachel Friend UKE OPERATOR Primary Care Provider [phone] Encounter Details Date Type Department Care Team (Latest Contact Info) Description 01/04/2016 Orders Only MMG CLINCONV ProviderAlhaji MD [address] [place] [address] Social History Tobacco Use Types Packs/Day Years Used Date Smoking Tobacco: Never Assessed Comments Unknown Sex and Gender Information Value Date Recorded Sex Assigned at Not on file Legal Sex Female 1:32 AM MARINE 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 Historical Provider MD Final Res ult * PROCEDURE - RESULT (01/04/2016 12:00 AM CDT) Narrative 01/04/2016 12:00 AM CDT Ordered by an unspecified provider. Historical Provider MD Final Res ult * PROCEDURE - RESULT (01/04/2016 12:00 AM CDT) Narrative 01/04/2016 12:00 AM CDT Ordered by an unspecified provider. [facility] Provider MD Final Res ult documented in this encounter Visit Diagnoses Not on filedocumented in this encounter Care Teams Mutual Fund Sales Agent Relationship Specialty Start Date End Date Tara Hudson MD [address] [address] PCP - General 12/17/16 11/02/19 Gege Herrera MD [address] [address] PCP - General Family Medicine 11/03/19 10/16/20 Rachel Friend NP [address] [place] [address] PCP - General Family Medicine 10/17/20 01/09/23 Emily Clements NP [address] [place] [address] PCP - General Nurse Practitioner 01/10/23 11/25/23 Rachel Friend NP [address] [place] [address] PCP - General Family Medicine 11/26/23 documented as of this encounter
--- OUTSIDE RECORDS SUMMARY | 2024-05-21 13:21 | XMS_ITS | Encounter Summary ---
Author Organization [facility] Care Team Providers Care File System Installer Name Role Phone Tara Hudson MD Primary Care Provider Gege Herrera MD Primary Care Provider Rachel Friend SAFETY SEALER Primary Care Provider [phone] Emily Clements SAFETY SEALER Primary Care Provider [phone] Rachel Friend SAFETY SEALER Primary Care Provider [phone] Encounter Details Date Type Department Care Team (Latest Contact Info) Description 03/05/2016 Orders Only MMG CLINCONV ProviderAlhaji MD [address] [place] [address] Social History Tobacco Use Types Packs/Day Years Used Date Smoking Tobacco: Never Assessed Comments Unknown Sex and Gender Information Value Date Recorded Sex Assigned at Not on file Legal Sex Female 1:32 AM INSULATION CUPOLA OPERATOR Gender Identity Female 12/12/2018 8:34 AM CDT Sexual Orientation Straight 12/12/2018 8: 34 AM CDT documented as of this encounter Plan of Treatment Not on file documented as of this encounter Procedures Procedure Name Priority Date/Time Associated Diagnosis Comments PROCEDURE - RESULT 03/05/2016 12 :00 AM INSULATION CUPOLA OPERATOR PROCEDURE - RESULT 03/05/2016 12 :00 AM INSULATION CUPOLA OPERATOR documented in this encounter Results * PROCEDURE - RESULT (03/05/2016 12:00 AM INSULATION CUPOLA OPERATOR) Narrative 03/05/2016 12:00 AM INSULATION CUPOLA OPERATOR Ordered by an unspecified provider. Historical Provider Final Res ult * PROCEDURE - RESULT (03/05/2016 12:00 AM INSULATION CUPOLA OPERATOR) Narrative 03/05/2016 12:00 AM INSULATION CUPOLA OPERATOR Ordered by an unspecified provider. Historical Provider Final Res ult documented in this encounter Visit Diagnoses Not on filedocumented in this encounter Care Teams File System Installer Relationship Specialty Start Date End Date Tara Hudson MD [address] [address] PCP - General 12/17/16 11/02/19 Gege Herrera MD [address] [address] PCP - General Family Medicine 11/03/19 10/16/20 Rachel Friend NP [address] [address] PCP - General Family Medicine 10/17/20 01/09/23 Emily Clements NP [address] [place] [address] PCP - General Nurse Practitioner 01/10/23 11/25/23 Rachel Friend NP [address] [place] [address] PCP - General Family Medicine 11/26/23 documented as of this encounter
--- OUTSIDE RECORDS SUMMARY | 2024-05-21 13:21 | XMS_ITS | Encounter Summary ---
Author Organization [facility] Care Team Providers Care Fan Balancer Name Role Phone Tara Hudson MD Primary Care Provider Gege Herrera MD Primary Care Provider Rachel Friend AUTOMATIC BUFFER Primary Care Provider [phone] Emily Clements AUTOMATIC BUFFER Primary Care Provider [phone] Rachel Friend AUTOMATIC BUFFER Primary Care Provider [phone] Encounter Details Date Type Department Care Team (Latest Contact Info) Description 11/25/2017 Orders Only MMG CLINCONV ProviderAlhaji MD [address] [place] [address] Social History Tobacco Use Types Packs/Day Years Used Date Smoking Tobacco: Never Assessed Comments Unknown Sex and Gender Information Value Date Recorded Sex Assigned at Not on file Legal Sex Female 1:32 AM CONCRETE PUDDLER Gender Identity Female 12/12/2018 8:34 AM CDT Sexual Orientation Straight 12/12/2018 8: 34 AM CDT documented as of this encounter Plan of Treatment Not on file documented as of this encounter Procedures Procedure Name Priority Date/Time Associated Diagnosis Comments PROCEDURE - RESULT 11/25/2017 12 :00 AM CDT documented in this encounter Results * PROCEDURE - RESULT (11/25/2017 12:00 AM CDT) Narrative 11/25/2017 12:00 AM CDT Ordered by an unspecified provider. us Historical Provider Final Res ult documented in this encounter Visit Diagnoses Not on filedocumented in this encounter Care Teams Fan Balancer Relationship Specialty Start Date End Date Tara Hudson MD [address] [facility] [address] [place] [address] PCP - General 12/17/16 11/02/19 Gege Herrera MD [address] [address] PCP - General Family Medicine 11/03/19 10/16/20 Rachel Friend NP [address] [address] PCP - General Family Medicine 10/17/20 01/09/23 Emily Clements NP [address] [place] [address] PCP - General Nurse Practitioner 01/10/23 11/25/23 Rachel Friend NP [address] [place] [address] PCP - General Family Medicine 11/26/23 documented as of this encounter
--- OUTSIDE RECORDS SUMMARY | 2024-05-21 13:21 | XMS_ITS | Encounter Summary ---
Author Organization [facility] Facility Care Team Providers Care Customer Care Associate Name Role Phone Tara Hudson MD Primary Care Provider Gege Herrera MD Primary Care Provider Rachel Friend SENIOR SOFTWARE SYSTEMS ENGINEER Primary Care Provider [phone] Emily Clements SENIOR SOFTWARE SYSTEMS ENGINEER Primary Care Provider [phone] Rachel Friend SENIOR SOFTWARE SYSTEMS ENGINEER Primary Care Provider [phone] Encounter Details Date Type Department Care Team (Latest Contact Info) Description 02/06/2016 Orders Only MMG CLINCONV Provider, MD Alhaji [address] [place] [address] Social History Tobacco Use Types Packs/Day Years Used Date Smoking Tobacco: Never Assessed Comments Unknown Sex and Gender Information Value Date Recorded Sex Assigned at Not on file Legal Sex Female 1:32 AM INSPECTOR HEATING AND REFRIGERATION Gender Identity Female 12/12/2018 8:34 AM CDT Sexual Orientation Straight 12/12/2018 8: 34 AM CDT documented as of this encounter Plan of Treatment Not on file documented as of this encounter Procedures Procedure Name Priority Date/Time Associated Diagnosis Comments SCAN - LABS 02/06/2016 12:00 AM CDT documented in this encounter Results * SCAN - LABS (02/06/2016 12:00 AM CDT) Narrative 02/06/2016 12:00 AM CDT Ordered by an unspecified provider. us Historical Provider Final Res ult documented in this encounter Visit Diagnoses Not on filedocumented in this encounter Care Teams Customer Care Associate Relationship Specialty Start Date End Date Tara Hudson MD [address] [facility] [address] [place] [address] PCP - General 12/17/16 11/02/19 Gege Herrera MD [address] [address] PCP - General Family Medicine 11/03/19 10/16/20 Rachel Friend NP [address] [address] PCP - General Family Medicine 10/17/20 01/09/23 Emily Clements NP [address] [place] [address] PCP - General Nurse Practitioner 01/10/23 11/25/23 Rachel Friend NP [address] [place] [address] PCP - General Family Medicine 11/26/23 documented as of this encounter
--- OUTSIDE RECORDS SUMMARY | 2024-05-21 13:21 | XMS_ITS | Referral Summary ---
Author Organization [facility] Address [address] [place] [address] Care Team Providers Care Name Plate Stamping Machine Operator Name Role Phone Rachel Friend NP Primary Care Provider [phone] Encounters Date Type Department Care Team Description 05/06/2024 9:45 AM DIE ATTACHING MACHINE TENDER Office Visit [facility] Orthopedics and Sports Medicine [address] [place] [phone] Dallas Caruso MD Primary osteoarthritis of right knee; Trochanteric bursitis of left hip 05/04/2024 7:00 AM DIE ATTACHING MACHINE TENDER Ancillary Procedure [facility] Cardiology [address] [place] [phone] Syncope and collapse; SVT (supraventricular tachycardia) (HCC); Palpitations 03/09/2024 Orders Only [facility] Cardiology [address] [place] [phone] Todd Cedeno MD Syncope and collapse (Primary Dx); SVT (supraventricular tachycardia) (HCC); Palpitations 03/09/2024 9:30 AM DIE ATTACHING MACHINE TENDER Ancillary Procedure [facility] Cardiology [address] [place] [phone] Status post placement of implantable loop recorder (Primary Dx); Syncope and collapse; SVT (supraventricular tachycardia) (HCC) from Last 3 Months Allergies Active Allergy Reactions Criticality Noted Date Comments Beta-Blockers (Beta-Adrenerg ic Blocking Agts) Rash High 12/05/2018 Bisoprolol-Hydrochlorothiazide Rash Medium 05/03 Clarithromycin Stomach upset Medium 05/03/2012 Erythromycin Stomach upset,Nausea only Medium 05/03/2012 Methylprednisolone Stomach upset Low 05/03/2012 Tramadol Stomach upset Low 12/17/2017 Medications methocarbamol (ROBAXIN) 750 mg tablet Take 1 tablet (750 mg total) by mouth as needed for muscle spasms Active fexofenadine (MARIAM) 180 mg tabletIndicatio ns:allergies Take 1 tablet (180 mg total) by mouth every morning Active meloxicam (MOBIC) 15 mg tabletIndicatio ns:pain Take 1 tablet (15 mg total) by mouth every morning Active simvastatin (ZOCOR) 10 mg tabletIndicatio ns:hyperlipidem ia Take 1 tablet (10 mg total) by mouth nightly Active multivitamin tabletIndicatio ns:Vitamin Deficiency Prevention Take 1 tablet by mouth every morning Active lutein 40 mg capsuleIndicati ons:for supplement Take by mouth every morning Active cholecalciferol (VITAMIN D-3) 2000 unit tabletIndicatio ns:for supplement Take by mouth every morning Active biotin 5,000 mcg tablet, sublingualIndic ations:for supplement Place under the tongue every morning Active lisinopriL (PRINIVIL,ZESTR IL) 40 mg tabletIndicatio ns:hypertension Take 1 tablet (40 mg total) by mouth every morning 08/07/2022 Active acetaminophen (TYLENOL) 325 mg tablet Take 2 tablets (650 mg total) by mouth every 6 (six) hours as needed for pain Active calcium carbonate (CALCIUM 500 ORAL)Indication s:for supplement Take by mouth every morning Active ALPRAZolam (XANAX) 0.25 mg tablet Take by mouth 2 (two) times a day as needed 03/25/2024 Active Hospital, Clinic, or Other Facility Administered Medication Ordered Dose Route Frequency Start Date End Date Status lidocaine (XYLOCAINE) 10 mg/mL (1 %) injection 2 mLIndications:Admini stration of Local Anesthesia 2 mL One-Time Injection 05/06/2024 5 Ended triamcinolone (KENALOG) 40 mg/mL injection 40 mgIndications:Trocha nteric bursitis of left hip 40 mg intra-artic One-Time Injection 05/06/2024 5 Ended lidocaine (XYLOCAINE) 10 mg/mL (1 %) injection 3 mLIndications:Admini stration of Local Anesthesia 3 mL One-Time Injection 05/06/2024 5 Ended triamcinolone (KENALOG) 40 mg/mL injection 40 mgIndications:Primar y osteoarthritis of right knee 40 mg intra-artic One-Time Injection 05/06/2024 5 Ended Active Problems Problem Noted Date Diagnosed Date SVT (supraventricular tachycardia) 04/18/2023 Atypical chest pain 04/18/2023 Closed fracture of mandible (CMS/HCC) 01/04/2023 Fall, initial encounter 12/03/2022 Open fracture of mandible (CMS/HCC) 12/03/2022 Status post placement of implantable loop record er 07/17/2022 Overview (07/17/2022): [place] EXTENDED STAYS [id number] Loop Recorder. Dx; Syncope, Tachycardia, Palpitations. DOI 06/15/2022-Fleissner. Mirza. [facility]link remote monitoring. Visit for wound check 06/22/2022 Syncope and collapse 10/17/2020 Palpitations 10/17/2020 Murmur, heart 10/17/2020 Dizziness 10/17/2020 Hypercholesterolemia 10/17/2020 Trochanteric bursitis of right hip 11/04/2019 Closed nondisplaced fracture of head of right radius with routine healing 01/20/2019 Peroneal tendinitis of right lower extremity Abnormal EKG 12/02/2017 Overview (12/19/2018): EKG done on 11/29/2017 showed sinus bradycardia with first-degree AV block. Left axis deviation noted. Possible left anterior fascicular block noted. Nonspecific anterior T-wave changes noted. Compared to previous EKG done in January 2016 with no signi Moderate tricuspid insufficiency 12/02/2017 Overview (12/19/2018): Echo in 2013. Clinically she has no swelling. Spondylolisthesis, lumbar region 01/02/2016 Spinal stenosis of lumbar region 01/02/2016 Disorder of bone and articular cartilage 016 Spontaneous ecchymosis 11/10/2015 Body mass index (BMI) less than or equal to 19 i n adult 09/07/2015 Pain in limb 02/10/2015 Benign essential hypertension 10/12/2014 Low back pain 10/12/2014 Scoliosis, or kyphoscoliosis, idiopathic 015 Hearing loss 07/30/2013 Asymmetrical sensorineural hearing loss 08/09/19 13 Encounter for screening for malignant neoplasm o f colon 05/06/2012 Overview (12/19/2018): For the hand surgery Chronic pain 05/03/2012 Lumbosacral spondylosis without myelopathy 05/03 Migraine without aura 05/03/2012 Malaise and fatigue 04/30/2012 Subjective tinnitus 08/19/2007 Social History Tobacco Use Types Packs/Day Years Used Date Smoking Tobacco: Never Cigarettes Smokeless Tobacco: Never Tobacco Cessation:Counseling Given: Not Answered Alcohol Use Standard Drinks/Week Comments Yes 0 (1 standard drink = 0.6 oz pur e alcohol) AUDIT-C Answer Date Recorded Q1: How often do you have a drink containing alc ohol? 2-3 times a week 01/10/2023 Q2: How many drinks containi ng alcohol do you have on a typical day when you are drinking? 1 or 2 01/10/2023 Q3: How often do you have si x or more drinks on one occasion? Never 01/10/2023 Personal Safety Answer Date Recorded Have you ever been in or are you currently in a harmful physical or emotional relationship or is someone making you feel afraid or unsafe? Denies 01/10/2023 Comments No Sex and Gender Information Value Date Recorded Sex Assigned at Not on file Legal Sex Female 1:32 AM DIE ATTACHING MACHINE TENDER Gender Identity Female 12/12/2018 8:34 AM CDT Sexual Orientation Straight 12/12/2018 8: 34 AM CDT Occupation Industry Job Start Date Job End Date retired Not on file Not on file Not on file Last Filed Vital Signs Vital Sign Reading Time Taken Comments Blood Pressure 128/76 11/11/2023 10:45 AM CDT Pulse 65 11/11/2023 10:45 AM CDT Temperature 37.2 ??C (99 ??F) 01/10/2023 10:50 AM CDT Respiratory Rate 28 01/10/2023 11:10 AM CDT Oxygen Saturation 99% 11/11/2023 10:45 AM CDT Inhaled Oxygen Concentration - - Weight 52.2 kg (115 lb) 05/06/2024 9:42 AM DIE ATTACHING MACHINE TENDER Height 165.1 cm (5' 5 ) 05/06/2024 9:42 AM DIE ATTACHING MACHINE TENDER Body Mass Index 19.14 05/06/2024 9:42 AM DIE ATTACHING MACHINE TENDER Plan of Treatment Not on file Medical Devices Implanted Type Area Computational Biologist Device Identifier Shelf Expiration Date Model / Serial / Lot Implantable Loop Recorder Implantable Loop Recorder Chest [employer] Infuse Kit Xs Graft Bone Rhbmp-2 Bovine Collagen Lumbar Taper [id number] - [id number] Implanted:Qty: 1 on 12/05/2022 by Ion Vergara MD at [facility] N/A: Ronald Medtronic Inc [id number] 04/21/2024 [id number] / / [id number] [employer] Vitoss Void Filler Foam Pack Bioactive Substitute 2.5ml Bone - [id number] Implanted:Qty: 1 on 12/05/2022 by Ion Vergara MD at [facility] N/A: Ronald [employer] [id number] 06/19/2023 [id number] / / [id number] Explanted Type Area Computational Biologist Device Identifier Shelf Expiration Date Model / Serial / Lot [place] Craniomaxillofacial Leibinger [place] 2 2mm 5mm Self Tap Cross Pin Maxillofacial 50 - [id number] Implanted:Qty: 8 on 12/05/2022 by Ion Vergara MD at [facility] Explanted:Qty: 8 on 01/10/2023 at [facility] Mandible [place] Craniomaxillofacial / / [place] [employer]axill[employer] Leibinger [place] 2 Smart Lock 9 Hole Mandible Small Plate Bone [id number] - [id number] Implanted:Qty: 2 on 12/05/2022 by Ion Vergara MD at [facility] Explanted:Qty: 2 on 01/10/2023 at [facility] Mandible Elvia Craniomaxillofacial [id number] / / Elvia Craniomaxillofacial Leibinger [place] 2 Smartlock 2mm 8mm Self Drill Lock [id number] - [id number] Implanted:Qty: 10 on 12/05/2022 by Ion Vergara MD at [facility] Explanted:Qty: 10 on 01/10/2023 at [facility] Mandible [place] Craniomaxillofacial 50 / / Elvia Craniomaxillofacial 16 Hole Maxillofacial 1.5mm Mini Plate Bone [id number] - [id number] Implanted:Qty: 1 on 12/05/2022 by Ion Vergara MD at [facility] Explanted:Qty: 1 on 01/10/2023 by Ion Vergara MD at [facility] Mandible Elvia Craniomaxillofacial [id number] / / [place] Craniomaxillofacial Leibinger [place] 2 2mm 8mm Lock Cross Pin Mandibular Screw [id number] - [id number] Implanted:Qty: 2 on 12/05/2022 by Ion Vergara MD at [facility] Explanted:Qty: 2 on 01/10/2023 at [facility] Mandible Elvia Craniomaxillofacial [id number] / / Elvia Craniomaxillofacial Leibinger [place] 2 2mm 10mm Lock Cross Pin Maxillofacial Screw [id number] - [id number] Implanted:Qty: 2 on 12/05/2022 by Ion Vergara MD at [facility] Explanted:Qty: 2 on 01/10/2023 at [facility] Mandible Elvia Craniomaxillofacial [id number] / / Elvia Craniomaxillofacial Leibinger [place] 2 2mm 12mm Lock Cross Pin Maxillofacial Screw [id number] - [id number] Implanted:Qty: 2 on 12/05/2022 by Ion Vergara MD at [facility] Explanted:Qty: 2 on 01/10/2023 at [facility] Mandible [place] Craniomaxillofacial [id number] / / [place] Craniomaxillofacial Plate Mini 8mm Mndb [address] Condensed 2mm Screw Bone Ti [id number] - [id number] Implanted:Qty: 1 on 12/05/2022 by Ion Vergara MD at [facility] Explanted:Qty: 1 on 01/10/2023 at [facility] Mandible [place] Craniomaxillof[employer] [id number] / / Procedures Procedure Name Priority Date/Time Associated Diagnosis Comments OR ARTHROCENTESIS ASPIR&/INJ MAJOR JT/BURSA W/O US Routine 05/06/2024 9:45 AM DIE ATTACHING MACHINE TENDER Primary osteoarthritis of right knee OR ARTHROCENTESIS ASPIR&/INJ MAJOR JT/BURSA W/O US Routine 05/06/2024 9:45 AM DIE ATTACHING MACHINE TENDER Trochanteric bursitis of left hip DEVICE CHECK - REMOTE Routine 03/09/2024 2:26 PM DIE ATTACHING MACHINE TENDER Syncope and collapse SVT (supraventricular tachycardia) (HCC) from Last 3 Months Results * OR ARTHROCENTESIS ASPIR&/INJ MAJOR JT/BURSA W/O US (05/06/2024 9:45 AM DIE ATTACHING MACHINE TENDER) Narrative Dallas Caruso MD - 05/06/2024 9:45 AM DIE ATTACHING MACHINE TENDER Dallas Caruso MD ? 05/06/2024 10:09 AM Large Joint (Hip, Knee, Shoulder) Injection: R knee Performed by: Dallas Caruso MD Authorized by: Dallas Caruso MD ?? Large Joint Injection/Aspiration: ??Consent Given by: ??Patient ??Timeout: prior to procedure the correct patient, procedure, and site was verified ?Verbal consent obtained: Yes ?? Supporting Documentation: ??Indications: ??Pain Procedure Details: ??Location: ??Knee ??Site: ??R knee ??Prep: patient was prepped and draped in usual sterile fashion ?Needle Size: ??18 G ??Approach: ??Superior lateral ??Medications: ??3 mL lidocaine 10 mg/mL (1 %); 40 mg triamcinolone 40 mg/mL ??Patient tolerance: ??Patient tolerated the procedure well with no immediate complications us Dallas Caruso MD IN CLINIC/BEDSIDE ORDERABLES Final Result * OR ARTHROCENTESIS ASPIR&/INJ MAJOR JT/BURSA W/O US (05/06/2024 9:45 AM DIE ATTACHING MACHINE TENDER) Narrative aDllas Caruso MD - 05/06/2024 9:45 AM DIE ATTACHING MACHINE TENDER Dallas Caruso MD ? 05/06/2024 10:09 AM Large Joint (Hip, Knee, Shoulder) Injection: L greater trochanteric bursa Performed by: Dallas Caruso MD Authorized by: Dallas Caruso MD ?? Large Joint Injection/Aspiration: ??Consent Given by: ??Patient ??Site marked: the procedure site was marked ?Timeout: prior to procedure the correct patient, procedure, and site was verified ?Verbal consent obtained: Yes ?? Supporting Documentation: ??Indications: ??Pain Procedure Details: ??Location: ??Hip ??Site: ??L greater trochanteric bursa ??Prep: patient was prepped and draped in usual sterile fashion ?Needle Size: ??22 G ??Approach: ??Lateral ??Ultrasound guided: No ?Medications: ??40 mg triamcinolone 40 mg/mL; 2 mL lidocaine 10 mg/mL (1 %) ??Patient tolerance: ??Patient tolerated the procedure well with no immediate complications us Dallas Caruso MD IN CLINIC/BEDSIDE ORDERABLES Final Result * DEVICE CHECK - REMOTE (03/09/2024 2:26 PM DIE ATTACHING MACHINE TENDER) Anatomical Region Laterality Modality Other Narrative 05/01/2024 2:57 PM DIE ATTACHING MACHINE TENDER Medtronic REVEAL LinQ implanted June 15, 2022 for syncope. Patient had a routine [facility]link remote transmission of their implantable loop recorder on March 09, 2024. Medications: None Interrogation of the patients device demonstrates that the Linq is functioning appropriately ?? (0) Symptom events Auto Device detected events of, (0) Pause, (0) Bradycardia, (3) Tachy, longest detected March 07 at 12:36 p.m., shows SVT for 1 minute 39 seconds in duration. (0) AT, (0) AF, Presenting Rhythm: ??Normal sinus rhythm at 72 bpm Battery: Good Plan: 1) Routine Remote with Tachy events. 2) Continue to monitor remotely. Zion Tavera Device Teenage Babysitter us Todd Cedeno MD [facility] PROCE JOANN Final Result from Last 3 Months [place] [address] [facility] MEDICARE [facility] [place] [address] MEDICARE BLUE CROSS MEDICARE SUPPLEMENT MEDICARE [facility] Advance Directives For more information, please contact: [phone] Documents on File Type Date Recorded Patient Medical Administrative Specialist Expl anation ADVANCE DIRECTIVE 08/21/2012 12:00 AM TJ PEREZ ADVANCE DIRECTIVE 08/21/2012 12:00 AM POWER OF VOCATIONAL REHABILITATION ADMINISTRATOR FINANCIAL/MEDICAL * Full Code (Latest Code Status on File) Date Activated Date Inactivated Comments 12/04/2022 12:40 AM 12/07/2022 8:03 PM Care Teams Name Plate Stamping Machine Operator Relationship Specialty Start Date End Date Rachel Friend NP [address] [place] [address] PCP - General Family Medicine 11/26/23
--- OUTSIDE RECORDS SUMMARY | 2024-05-21 13:22 | XMS_ITS | Clinical Summary ---
Author Organization [facility] Address [address] [place] [address] Care Team Providers Care Gravel Inspector Name Role Phone Tara Hudson MD Primary Care Provider [phone] Source Comments [facility],non-owned Affiliates and Associated Physician Practices is amultiple site organization consisting of ambulatory clinics and hospital sitesin [place], [place], [place] and [place]. This disclosure is being madepursuant to the Care Everywhere program and may not contain all information available regarding this patient. Last updated 18.[facility] Allergies Active Allergy Reactions Criticality Noted Date Comments Clarithromycin GI Discomfort 05/27/2018 Erythromycin GI Discomfort 05/27/2018 Medications * Be aware that medications may not be up to date on this document. Alwaysverify current medications with the patient. Medication Sig Dispensed Refills Start Date End Date Status LISINOPRIL PO Active DICLOFENAC & DIET MANAGE PROD PO Active Social History Tobacco Use Types Packs/Day Years Used Date Smoking Tobacco: Never Smokeless Tobacco: Never Sex and Gender Information Value Date Recorded Sex Assigned at Not on file Gender Identity Not on file Sexual Orientation Not on file Last Filed Vital Signs Vital Sign Reading Time Taken Comments Blood Pressure 128/72 05/27/2018 12:26 PM RIM TURNING MACHINE OPERATOR Pulse 80 05/27/2018 12:26 PM RIM TURNING MACHINE OPERATOR Temperature 37 ??C (98.6 ??F) 05/27/2018 12:26 PM RIM TURNING MACHINE OPERATOR Respiratory Rate 16 05/27/2018 12:26 PM RIM TURNING MACHINE OPERATOR Oxygen Saturation 100% 05/27/2018 12:26 PM RIM TURNING MACHINE OPERATOR Inhaled Oxygen Concentration - - Weight 52.2 kg (115 lb) 05/27/2018 12:26 PM RIM TURNING MACHINE OPERATOR Height 162.6 cm (5' 4 ) 05/27/2018 12:26 PM RIM TURNING MACHINE OPERATOR Body Mass Index 19.74 05/27/2018 12:26 PM RIM TURNING MACHINE OPERATOR Plan of Treatment Health Maintenance Due Date Last Done Comments BONE DENSITY TESTING 1945 MEDICARE AWV ? 12 MONTHS 1945 HEPATITIS C SCREENING 03/24/1964 DTAP/TDAP/TD VACCINES (1 - Tdap) 1965 PNEUMOCOCCAL VACCINE 50+ (1 of 1 - PCV) 1996 ZOSTER VACCINE (1 of 2) 1996 Respiratory Syncytial Virus (RSV) Vaccine Pt: or over 60 yrs (1 - 1-dose 75+ series) 2021 COVID-19 VACCINE (1 - 2023-2 5 season) 2023 INFLUENZA VACCINE (#1) 2023 DEPRESSION SCREENING 04/22/2024 HEPATITIS B VACCINE Aged Out No longe r eligible based on patient's age to complete this topic HIB VACCINE Aged Out No longer eligi ble based on patient's age to complete this topic HPV VACCINE Aged Out No longer eligi ble based on patient's age to complete this topic MENINGOCOCCAL (Group B) VACCINE Aged Out No longer eligible based on patient's age to complete this topic MENINGOCOCCAL VACCINE Aged Out No tevin rodrick eligible based on patient's age to complete this topic Care Teams Gravel Inspector Relationship Specialty Start Date End Date Tara Hudson MD [address] [phone] [facility] - General 12/12/12
--- OUTSIDE RECORDS SUMMARY | 2024-05-21 13:22 | XMS_ITS | Clinical Summary ---
Author Organization [facility] Address [address] [place] [address] Care Team Providers Care Ux Information Architect Name Role Phone Rachel Friend NP Primary Care Provider Allergies Active Allergy Reactions Criticality Noted Date [...] implantable loop record er 07/17/2022 Overview (07/17/2022): Eyeonixtronic LNQ22 Loop Recorder. Dx; Syncope, Tachycardia, Palpitations. [...] Malaise and fatigue 04/30/2012 Subjective tinnitus 08/19/2007 Encounters Date Type Department Care Team Description 05/06/2024 9:45 AM BATTING MACHINE OPERATOR INSULATION Office Visit [facility] Orthopedics and Sports Medicine [address] [place] [phone] Dallas Caruso MD Primary osteoarthritis of right knee; Trochanteric bursitis of left hip 05/04/2024 7:00 AM BATTING MACHINE OPERATOR INSULATION Ancillary Procedure [facility] [address] [place] [address] [place] [phone] Syncope and collapse; SVT (supraventricular tachycardia) (HCC); Palpitations 03/09/2024 9:30 AM BATTING MACHINE OPERATOR INSULATION Ancillary Procedure [facility] [address] [place] [address] [place] [phone] Status post placement of implantable loop recorder (Primary Dx); Syncope and collapse; SVT (supraventricular tachycardia) (HCC) 03/09/2024 Orders Only [facility] [address] [place] [address] [place] [phone] Todd Cedeno MD Syncope and collapse (Primary Dx); SVT (supraventricular tachycardia) (HCC); Palpitations from Last 3 Months Surgical History Surgery Date Site/Laterality Comments HAND SURGERY POSTERIOR FUSION LUMBAR SPINE 02/22/2016 Dr. Alanis BREAST SURGERY 04/22/2007 - 04/21/2008 removal of implants CATARACT EXTRACTION 04/22/2012 - 04/21/2013 SPINE SURGERY 04/22/2015 - 04/21/2016 laminectomy with instrumentation OTHER SURGICAL HISTORY 05/23/2022 - 06/19/2022 Loop Recorder insertion LUMBAR SPINE SURGERY 12/19/2021 Laminectomy, discectomy CARPAL TUNNEL RELEASE 04/22/1987 - 04/21/1988 Right NASAL SEPTUM SURGERY 04/22/1998 - 04/21/1999 FRACTURE SURGERY 12/05/2022 Bilateral ORIF Mandible AUGMENTATION MAMMOPLASTY 04/22/1984 - 04/21/1985 Medical History Medical History Date Comments HL (hearing loss) Tinnitus Hypertension Osteoarthritis Trochanteric bursitis, right hip History of lumbar fusion 2012 Hypercholesterolemia Dizziness Cardiac rhythm disturbance Sinusitis Allergic rhinitis Cataracts, bilateral Anxiety Arthritis Mandible fracture (CMS/HCC) (HCC) Ankle fracture Syncope Cardiac complication 11/2021 hypotension and tachycardia post op lumbar surgery 11/2021, estimated blood loss 1 L History of blood transfusion 2021 aft er lumbar surgery Dental disease Headache Abnormal ECG Motion sickness Family History Medical History Relation Name Comments Alcohol abuse Father Carlos Rees () Depression Father Carlos Chungayana () Suidcide Father Carlos Rees () 50 y.o. Heart disease Maternal Grandmother Aura Hogue (decea sed) Hypertension Maternal Grandmother Aura Hogue (deceas ed) Stroke Maternal Grandmother Aura Hogue (deceas ed) Hearing loss Mother Suri Rees () Jerry-Creutzfeld dz Mother Suri Rees (decea sed) 61 y.o. No Known Problems Sister Anesthesia problems Neg Hx Relation Name Status Comments Father Carlos Rees () Maternal Grandmother Aura Hogue () Mother Suri Rees () Sister Alive Social History Tobacco Use Types Packs/Day Years [...] on file Legal Sex Female 1:32 AM BATTING MACHINE OPERATOR INSULATION Gender Identity Female 12/12/2018 8:34 AM CDT Sexual Orientation Straight 12/12/2018 8 :34 AM CDT Occupation Industry Job Start Date Job End Date retired Not on file Not on file Not on file Obstetrics History Last Filed Vital Signs Vital Sign Reading Time Taken Comments Blood Pressure 128/76 11/11/2023 10:45 AM CDT Pulse 65 11/11/2023 10:45 AM CDT Temperature 37.2 ??C (99 ??F) 01/10/2023 10:50 AM CDT Respiratory Rate 28 01/10/2023 11:10 AM CDT Oxygen Saturation 99% 11/11/2023 10:45 AM CDT Inhaled Oxygen Concentration - - Weight 52.2 kg (115 lb) 05/06/2024 9:42 AM BATTING MACHINE OPERATOR INSULATION Height 165.1 cm (5' 5 ) 05/06/2024 9:42 AM BATTING MACHINE OPERATOR INSULATION Body Mass Index 19.14 05/06/2024 9:42 AM BATTING MACHINE OPERATOR INSULATION Plan of Treatment Health Maintenance Due Date Last Done Comments Depression Screening 1945 Hepatitis C Screening 1945 Hepatitis B Screening 1963 Zoster Vaccine (2 of 3) 07/25/2007 05/30/2007 Well Visit 65+ 2011 DTaP/Tdap/Td Vaccine (2 - Td or Tdap) 08/22/2019 08/21/2009 Osteoporosis Screening-Bone Density Scan 11/12/2020 11/12/2018, 11/10/2018 Influenza Vaccine (#1) 2023 , 01/05/2020, 01/20/2019, Additional history exists Fall Risk Assessment 01/11/2024 01/10/2023 Pneumococcal vaccine 65+ Completed 017, 02/03/2015, 01/20/2015, Additional history exists Breast Cancer Screening-Mammogram Discontinued 019, 02/10/2018 Medical Devices Implanted Type Area Electronic Induction Hardener Device Identifier Shelf Expiration Date Model / Serial / Lot Implantable Loop Recorder Implantable Loop Recorder Chest Medtronic [employer] Infuse Kit Xs Graft Bone Rhbmp-2 Bovine Collagen Lumbar Taper [id number] - [id number] Implanted:Qty: 1 on 12/05/2022 by Ion Vergara MD at [facility] N/A: Ronald Medtronic Inc [id number] 04/21/2024 [id number] / / [id number] C [employer] Vitoss Void Filler Foam Pack Bioactive Substitute 2.5ml Bone 8678-6024 - [id number] Implanted:Qty: 1 on 12/05/2022 by Ion Vergara MD at [facility] N/A: Ronald [employer] [id number] 06/19/2023 [id number] / / [id number] Explanted Type Area Electronic Induction Hardener Device Identifier Shelf Expiration Date Model / Serial / Lot Elvia Craniomaxillofacial Leibinger Henderson 2 2mm 5mm Self Tap Cross Pin Maxillofacial 50- - [id number] Implanted:Qty: 8 on 12/05/2022 by Ion Vergara MD at [facility] Explanted:Qty: 8 on 01/10/[address] [facility] Mandible Elvia Craniomaxillofacial 50- / / Elvia Craniomaxillofacial Leibinger Henderson 2 Smart Lock 9 Hole Mandible Small Plate Bone [id number] - [id number] Implanted:Qty: 2 on 12/05/2022 by Ion Vergara MD at [facility] Explanted:Qty: 2 on 01/10/[address] [facility] Mandible Elvia Craniomaxillofacial [id number] / / Elvia Craniomaxillofacial Leibinger Henderson 2 Smartlock 2mm 8mm Self Drill Lock 50- - [id number] Implanted:Qty: 10 on 12/05/2022 by Ion Vergara MD at [facility] Explanted:Qty: 10 on 01/10/[address] [facility] Mandible Willet Craniomaxillofacial 50- / / Elvia Craniomaxillofacial 16 Hole Maxillofacial 1.5mm Mini Plate Bone [id number] - [id number] Implanted:Qty: 1 on 12/05/2022 by Ion Vergara MD at [facility] Explanted:Qty: 1 on 01/10/2023 by Ion Vergara MD at [facility] Mandible Elvia Craniomaxillofacial [id number] / / Willet Craniomaxillofacial Leibinger Henderson 2 2mm 8mm Lock Cross Pin Mandibular Screw [id number] - [id number] Implanted:Qty: 2 on 12/05/2022 by Ion Vergara MD at [facility] Explanted:Qty: 2 on 01/10/[address] [facility] Mandible Willet Craniomaxillofacial [id number] / / Elvia Craniomaxillofacial Leibinger Henderson 2 2mm 10mm Lock Cross Pin Maxillofacial Screw [id number] - [id number] Implanted:Qty: 2 on 12/05/2022 by Ion Vergara MD at [facility] Explanted:Qty: 2 on 01/10/[address] [facility] Mandible Willet Craniomaxillofacial [id number] / / Willet Craniomaxillofacial Leibinger Henderson 2 2mm 12mm Lock Cross Pin Maxillofacial Screw [id number] - [id number] Implanted:Qty: 2 on 12/05/2022 by Ion Vergara MD at [facility] Explanted:Qty: 2 on 01/10/[address] [facility] Mandible Willet Craniomaxillofacial [id number] / / Willet Craniomaxillofacial Plate Mini 8mm Mndb [address] Condensed 2mm Screw Bone Ti [id number] - [id number] Implanted:Qty: 1 on 12/05/2022 by Ion Vergara MD at [facility] Explanted:Qty: 1 on 01/10/[address] [facility] Mandible Willet Craniomaxillofacial [id number] / / Procedures Procedure Name Priority Date/Time Associated Diagnosis Comments WA ARTHROCENTESIS ASPIR&/INJ MAJOR JT/BURSA W/O US Routine 05/06/2024 9:45 AM BATTING MACHINE OPERATOR INSULATION Primary osteoarthritis of right knee WA ARTHROCENTESIS ASPIR&/INJ MAJOR JT/BURSA W/O US Routine 05/06/2024 9:45 AM BATTING MACHINE OPERATOR INSULATION Trochanteric bursitis of left hip DEVICE CHECK - REMOTE Routine 03/09/2024 2:26 PM BATTING MACHINE OPERATOR INSULATION Syncope and collapse SVT (supraventricular tachycardia) (HCC) from Last 3 Months Results * WA ARTHROCENTESIS ASPIR&/INJ MAJOR JT/BURSA W/O US (05/06/2024 9:45 AM BATTING MACHINE OPERATOR INSULATION) Narrative Dallas Caruso MD - 05/06/2024 9:45 AM BATTING MACHINE OPERATOR INSULATION Dallas Caruso MD ? 05/06/2024 10:09 AM [...] MD IN CLINIC/BEDSIDE ORDERABLES Final Result * WA ARTHROCENTESIS ASPIR&/INJ MAJOR JT/BURSA W/O US (05/06/2024 9:45 AM BATTING MACHINE OPERATOR INSULATION) Narrative Dallas Caruso MD - 05/06/2024 9:45 AM BATTING MACHINE OPERATOR INSULATION Dallas Caruso MD ? 05/06/2024 10:09 AM [...] DEVICE CHECK - REMOTE (03/09/2024 2:26 PM BATTING MACHINE OPERATOR INSULATION) Anatomical Region Laterality Modality Other Narrative 05/01/2024 2:57 PM BATTING MACHINE OPERATOR INSULATION Medtronic REVEAL LinQ implanted June 15, 2022 [...] Continue to monitor remotely. Zion Tavera Device Check Writer us Todd Cedeno MD [facility] CARDIAC SERVICES PROCE JOANN Final Result from Last 3 Months Insurance MEDICARE [facility] MEDICARE [facility] MEDICARE BLUE CROSS MEDICARE SUPPLEMENT MEDICARE [facility] Advance Directives For more information, please contact: [phone] Documents on File Type Date Recorded Patient Spike Maker Expl anation ADVANCE DIRECTIVE 08/21/2012 12:00 AM TJ PEREZ ADVANCE DIRECTIVE 08/21/2012 12:00 AM POWER OF FITNESS COORDINATOR FINANCIAL/MEDICAL * Full Code (Latest Code Status on File) Date Activated Date Inactivated Comments 12/04/2022 12:40 AM 12/07/2022 8:03 PM Care Teams Ux Information Architect Relationship Specialty Start Date End Date Rachel Friend NP [address] [place] [address] PCP - General Family Medicine 11/26/23
--- OUTSIDE RECORDS SUMMARY | 2024-05-21 13:22 | XMS_ITS | Referral Summary ---
Author Organization [facility] Address [address] [place] [address] Care Team Providers Care Factory Assembler Name Role Phone Tara Hudson MD Primary Care Provider [phone] Source Comments [facility],non-owned Affiliates and Associated Physician Practices is amultiple site organization consisting of ambulatory clinics and hospital sitesin [place], [place], [place] and [place]. This disclosure is being madepursuant to the Care Everywhere program and may not contain all information available regarding this patient. Last updated 18.[facility] Allergies Active Allergy Reactions Criticality Noted Date [...] Comments Blood Pressure 128/72 05/27/2018 12:26 PM SPRING FLOOR SERVICE WORKER Pulse 80 05/27/2018 12:26 PM SPRING FLOOR SERVICE WORKER Temperature 37 ??C (98.6 ??F) 05/27/2018 12:26 PM SPRING FLOOR SERVICE WORKER Respiratory Rate 16 05/27/2018 12:26 PM SPRING FLOOR SERVICE WORKER Oxygen Saturation 100% 05/27/2018 12:26 PM SPRING FLOOR SERVICE WORKER Inhaled Oxygen Concentration - - Weight 52.2 kg (115 lb) 05/27/2018 12:26 PM SPRING FLOOR SERVICE WORKER Height 162.6 cm (5' 4 ) 05/27/2018 12:26 PM SPRING FLOOR SERVICE WORKER Body Mass Index 19.74 05/27/2018 12:26 PM SPRING FLOOR SERVICE WORKER Plan of Treatment Not on file Care Teams Factory Assembler Relationship Specialty Start Date End Date Tara Hudson MD [address] [place] [address] [place] [phone] PCP - General 12/12/12
--- OUTSIDE RECORDS SUMMARY | 2024-05-21 13:24 | XMS_ITS | Continuity of Care Document ---
Author Organization [facility] Address [address] [place] [address] Phone Care Team Providers Care Oil Exploration Engineer Name Role Phone Nabor Ceja MD [...] on Encounter OFFICE/OUTPA TIENT VISIT [facility], [address] [facility] [address], [place], [address], tel:[phone] [facility] My back and right ankle hurt alot (chief complaint) Body mass index (BMI) 19 or less, adultLow back painPeroneal tendinitis of right lower extremitySpondylo listhesis at L4-L5 level [address]. [address] [place], [place], [id number] . tel:[phone] Referring Provider: Tara Hudson, [address] [place], [address] . tel:[phone] Family History Family Member Type Diagnosis Age At Onset Father Problem (finding) hypertension Father Problem (finding) depression Payers Payer name Insurance type Covered democrat ID Ronnie andujar(s) Medicare E2 OT [id number] Combined Insurance OT [id number] Social History Type Description Quantity Date Captured [...]
--- OUTSIDE RECORDS SUMMARY | 2024-05-21 13:24 | XMS_ITS | Clinical Summary ---
Author Organization [facility] Address [address] [place] [address]. [place], [place] [address] [place] [address] Care Team Providers Care Sticker Operator Name Role Phone Rachel Friend MISSIONARY COORDINATOR Primary Care Provider [phone] Allergies No known active allergies Medications lisinopril (PRINIVIL) 20 MG tablet Take 20 mg by mouth daily. Active meloxicam (MOBIC) 15 MG tablet Take 15 mg by mouth daily. Active simvastatin (ZOCOR) 10 MG tablet Take 10 mg by mouth nightly at bedtime. Active ALPRAZolam (XANAX) 0.25 MG tablet Take 0.25 mg by mouth 2 (two) times daily. Active methocarbamol (ROBAXIN) 750 MG Tab Take 0.5 tablets by mouth 3 (three) times daily as needed. Active cyclobenzaprine (FLEXERIL) 10 MG tablet Take 10 mg by mouth 3 (three) times daily as needed for Muscle Spasms. Active fexofenadine (MARIAM) 180 MG tablet Take 180 mg by mouth daily. Active biotin 300 MCG Tab Take 1 tablet by mouth daily. Active Vitamin D3, cholecalciferol , 2000 UNIT Tab tablet Take 2,000 Units by mouth daily. Active Multiple Vitamin (MULTIVITAMIN ADULT) Tab Active Zinc 50 MG Cap Activ e Active Problems Problem Noted Date Diagnosed Date Myofascial pain 04/20/2022 Overview (04/20/2022): Added automatically from request for surgery [id number] Social History Tobacco Use Types Packs/Day Years Used Date Smoking Tobacco: Never Smokeless Tobacco: Never Tobacco Cessation:Counseling Given: Not Answered Alcohol Use Standard Drinks/Week Comments Yes 0 (1 standard drink = 0.6 oz pur e alcohol) socially Comments No Sex and Gender Information Value Date Recorded Sex Assigned at Not on file Legal Sex Female 8:14 PM CDT Gender Identity Female 08/07/2021 9:19 AM CDT Sexual Orientation Not on file Occupation Industry 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 Start Date Job End 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 Not on file Not on file Not on file Last Filed Vital Signs Vital Sign Reading Time Taken Comments Blood Pressure 148/89 05/09/2022 11:53 AM SALES SUPPORT SPECIALIST Pulse 93 05/09/2022 11:53 AM SALES SUPPORT SPECIALIST Temperature 36.6 ??C (97.8 ??F) 05/09/2022 11:[address] Respiratory Rate 18 04/20/2022 8:01 AM SALES SUPPORT SPECIALIST Oxygen Saturation 99% 04/20/2022 8:01 AM SALES SUPPORT SPECIALIST Inhaled Oxygen Concentration - - Weight 51.9 kg (114 lb 6.4 oz) 05/09/2022 11:53 AM SALES SUPPORT SPECIALIST Height 160 cm (5' 3 ) 05/09/2022 11:53 AM SALES SUPPORT SPECIALIST Body Mass Index 20.27 05/09/2022 11:53 AM SALES SUPPORT SPECIALIST Plan of Treatment Health Maintenance Due Date Last Done Comments Hepatitis C 1963 Zoster Vaccines (2 of 3) 07/25/2007 05/30/2007 Annual Medicare Wellness Visit 2011 Dexa Scan (General) 2011 DTaP, Tdap and Td Vaccines (2 - Td or Tdap) 08/22/2019 08/21/2009 RSV Immunization or 60+ Years (1 - 1-dose 75+ series) 2021 COVID-19 Vaccine ( - season) 2023 07/26/2021, 02/14/2021, 07/08/2020, Additional history exists Influenza Adult (#1) 2024 12/28/2020, 01/20/2019, 01/30/2018, Additional history exists Pneumococcal Vaccine: 65+ Years Completed 02/13/2017, 02/03/2015, 01/20/2015, Additional history exists Meningococcal B Vaccine Aged Out No l onger eligible based on patient's age to complete this topic Meningococcal Vaccine Aged Out No tevin rodrick eligible based on patient's age to complete this topic RSV Immunizations Under 20 Months Aged Out No longer eligible based on patient's age to complete this topic Insurance MEDICARE [facility] Care Teams Sticker Operator Relationship Specialty Start Date End Date Rachel Friend FNP PCP - General Nurse Practitioner Family 07/20/21
--- OUTSIDE RECORDS SUMMARY | 2024-05-21 13:24 | XMS_ITS | Data Portability ---
Author Organization [facility] Address [address] [place] [address] Assessment No assessment recorded. Plan of Treatment Reminders Order Date Submit Date Provider Last Modified By Organization Details Last Modified Time Details Appointments None recorde d. Lab BMP, serum or plasma 2016 017 [facility], [address], [address], [place], [address], 7 06:23:16 lipid panel, serum 2016 017 [facility], [address], [address], [place], [address], 7 06:23:16 AST/SGO T (aspart ate aminotr ansfera se), serum or plasma 2016 017 [facility], [address], [address], [place], [address], 7 06:23:16 lipid panel, serum 2017 018 [facility], [address], [address], [place], [address], 8 12:34:54 CMP, serum or plasma 2017 018 [facility], [address], [address], [place], [address], 8 12:34:55 CBC w/ auto diff 2017 [facility], [address], [address], [place], [address], 8 12:34:55 TSH, serum or plasma 2017 018 [facility], [address], [address], [place], [address], 8 12:34:56 C-react vickie protein , quantit ative, serum or plasma 2017 [facility], [address], [address], [place], [address], 8 12:34:56 BMP, serum or plasma 2018 [facility], [address], [address], [place], [address], 9 03:46:46 lipid panel, serum 2018 019 [facility], [address], [address], [place], [address], 9 03:46:45 AST/SGO T (aspart ate aminotr ansfera se), serum or plasma 2018 019 [facility], [address], [address], [place], [address], 9 03:46:46 Referral hand surgeon referra jorgito Smith establi shed patient ; appt schedul ed 2017 018 TEJAL Wong MD, [address] [facility] , [address], [place], [address], 8 17:20:49 hand surgeon refer l - Please contact patient for appt- patient gone from 9 through 12/05/19 19 2018 019 deandre Wong MD, [address] [facility] , [address], [place], [address], 9 10:59:33 Procedures destruc tion of benign lesions (PROC) 2016 017 wand[facility] Not available 7 15:20:01 Surgeries None recorde d. Imaging MAMMO, screeni ng, digital , bilater al 2016 017 thoskinsma Not available 7 10:31:25 DEXA 2018 019 [facility], [address], [address], [place], [address], 9 09:24:08 Medication Orders diclofe nac sodium 50 mg tablet, delayed release 2016 017 [facility] [address], [place], [address], 7 11:55:36 lisinop ril 10 mg tablet 2016 017 INTERFACE [facility] [address], [place], [address], 7 11:55:33 diclofe nac sodium 50 mg tablet, delayed release 2016 017 INTERFACE [facility]), [address], [address], [place], [address], 7 11:22:41 flutica sone propion ate 50 mcg/act uation nasal spray,s uspensi on 2016 017 [facility], [address], [place], [id number], 8 12:51:05 lisinop ril 10 mg tablet 2016 017 INTERFACE [facility] ([facility]), [address], [place], [address], 7 11:22:40 meclizi ne 25 mg tablet 2017 018 [address] [facility] [address] [place], [address], 9 11:53:14 diclofe nac sodium 50 mg tablet, delayed release 2017 018 INTERFACE [facility], [place], [address], 8 13:50:12 flutica sone propion ate 50 mcg/act uation nasal spray,s uspensi on 2017 018 [facility] [address] [place], [address], 8 13:58:13 lisinop ril 10 mg tablet 2017 018 INTERFACE [facility], [facility], [place], [address], 8 13:50:11 diclofe nac sodium 50 mg tablet, delayed release 2018 019 INTERFACE [facility], [place], [address], 9 11:55:06 methoca rbamol 750 mg tablet 2018 019 [address] [place], [address], 9 13:52:37 lisinop ril 10 mg tablet 2018 019 INTERFACE [facility], [place], [address], 9 11:55:07 Patient TargetsNo targets recorded. Patient Instructions Encounter Date Encounter Id Patient Instructions Last Modified By Organization Details Last Modified Time 05/01/2016 [id number] high blood pressure: care instructions lleelpn Not available 05/01/2016 12:06:33 learning about high blood pressure lleelpn Not available 05/01/2016 12:06:33 11/08/2016 [id number] seborrheic keratosis: care instructions ssadlowskima Not available 11/08/2016 14:47:13 learning about breast cancer screening lenglema Not available 11/08/2016 11:25:15 managing your allergies: care instructions lenglema Not available 11/08/2016 11:25:15 seasonal allergies: care instructions lenglema Not available 11/08/2016 11:25:15 10/31/2017 [id number] high blood pressure: care instructions Not available 10/31/2017 13:50:08 learning about high blood pressure Not available 10/31/2017 13:50:08 11/10/2018 [id number] back care and preventing injuries: care instructions Not available 11/10/2018 11:55:05 Reason for Referral Hand Surgeon Referral for Pa in of left hand established patient; appt scheduled Referring Physician: Family [facility], Encounter Date: 10/31/2017 Hand Surgeon Referral for Ga nglion of wrist Please contact patient for appt- patient gone from 11/26/2018 through 12/04/2018 Referring Physician: Family Aidan Devlin, Encounter Date: 11/10/2018 Results Created Date Observation Date Name Description Value Unit Range Abnormal Flag Note LastModifiedBy Organization Detail LastModifiedTime 02/06/20 17 02/06/2017 lipid panel , serum cholesterol, total 206 mg/dL <200 high Not Available [facility] [address] [place], [address], 02/06/2017 06:23:15 02/06/20 17 02/06/2017 lipid panel , serum HDL cholesterol 88 mg/dL >50 normal Not Available [facility] [address] [place], [address], 02/06/2017 06:23:15 02/06/20 17 02/06/2017 lipid panel , serum triglyceride s 67 mg/dL <150 normal Not Available [address], [address], 02/06/2017 06:23:15 02/06/20 17 02/06/2017 lipid panel , serum LDL-choleste rol 103 mg/dL _(radha c) high Refer ence range : <100 Francisco able range <100 mg/dL for patie nts with CHD or diabe rylee and <70 mg/dL for diabe tic patie nts with known heart disea se. LDL-C is now calcu lated using the Celeste n-Hop kins calcu bernie n, which is a valid ated novel metho d provi ding abraham r accur acy than the Fried zeeshan equat ion in the estim ation of LDL-C . Celeste beltran SS et al. MADHURI. 2013; 310(1 9): 2061- 2068 (http ://ed ucati on.Qu estDi [employer]. com/f aq/FA Q164) Not Available [address], [address], 02/06/2017 06:23:15 02/06/20 17 02/06/2017 lipid panel , serum chol/HDLC ratio 2.3 (calc ) <5.0 normal Not Available [address], [address], 02/06/2017 06:23:15 02/06/20 17 02/06/2017 lipid panel , serum non HDL cholesterol 118 mg/dL _(radha c) <130 normal For patie nts with diabe rylee plus 1 major ASCVD risk facto r, treat ing to a non-H DL-C goal of <100 mg/dL (LDL- C of <70 mg/dL ) is consi dered a therli kayeo n. Not Available [address], [address], 02/06/2017 06:23:15 02/06/20 17 02/06/2017 AST/S GOT (aspa rtate amino trans feras e), serum or plasm a AST 19 U/L 10-35 normal Not Available [address] [address] [place], [address], 02/06/2017 06:23:16 02/06/20 17 02/06/2017 BMP, serum or plasm a glucose 94 mg/dL 65-99 normal Fasti ng refer ence inter adilene Not Available [facility] [address] [address] [place], [address], 02/06/2017 06:23:16 02/06/20 17 02/06/2017 BMP, serum or plasm a urea nitrogen (BUN) 13 mg/dL 7-25 normal Not Available [address] [address] [place], [address], 02/06/2017 06:23:16 02/06/20 17 02/06/2017 BMP, serum or plasm a creatinine 0.59 mg/dL 0.60-0 .93 low For patie nts >49 years of age, the refer ence limit for Creat inine is appro ximat marilou 13% highe r for peopl e ident ified as Afric an-Am rosmery n. Not Available [address] [address] [place], [address], 02/06/2017 06:23:16 02/06/20 17 02/06/2017 BMP, serum or plasm a eGFR non-afr. equatorial guinean 93 mL/mi n/1.7 3m2 > or = 60 normal Not Available [address] [address] [place], [address], 02/06/2017 06:23:16 02/06/20 17 02/06/2017 BMP, serum or plasm a eGFR 108 mL/mi n/1.7 3m2 > or = 60 normal Not Available [facility], [address], 02/06/2017 06:23:16 02/06/20 17 02/06/2017 BMP, serum or plasm a BUN/creatini ne ratio 22 (calc ) 6-22 normal Not Available [address], [address], 02/06/2017 06:23:16 02/06/20 17 02/06/2017 BMP, serum or plasm a sodium 133 mmol/ L 135-14 6 low Not Available [address], [address], 02/06/2017 06:23:16 02/06/20 17 02/06/2017 BMP, serum or plasm a potassium 4.6 mmol/ L 3.5-5. 3 normal Not Available [address], [address], 02/06/2017 06:23:16 02/06/2002/06/2017 BMP, serum or plasm a chloride 97 mmol/ L 98-110 low Not Available [address], [address], 02/06/2017 06:23:16 02/06/20 17 02/06/2017 BMP, serum or plasm a carbon dioxide 29 mmol/ L 20-31 normal Not Available [address], [address], 02/06/2017 06:23:16 02/06/2002/06/2017 BMP, serum or plasm a calcium 9.7 mg/dL 8.6-10 .4 normal Not Available [address], [address], 02/06/2017 06:23:16 02/11/20 18 02/11/2018 lipid panel , serum cholesterol, total 209 mg/dL <200 high Not Available [address], [address], 02/11/2018 12:34:54 02/11/20 18 02/11/2018 lipid panel , serum HDL cholesterol 87 mg/dL >50 normal Not Available [facility] [employer] [address], [address], 02/11/2018 12:34:54 02/11/20 18 02/11/2018 lipid panel , serum triglyceride s 105 mg/dL <150 normal Not Available [address], [address], 02/11/2018 12:34:54 02/11/20 18 02/11/2018 lipid panel , serum LDL-choleste rol 102 mg/dL _(radha c) high Refer ence range : <100 Francisco able range <100 mg/dL for prima ry preve ntion ; <70 mg/dL for patie nts with CHD or diabe tic patie nts with > or = 2 CHD risk facto rs. LDL-C is now calcu lated using the Celeste n-Hop kins calcu latblake n, which is a valid ated novel metho d provi ding abraham r accur acy than the Fried zeeshan equat ion in the estim ation of LDL-C . Celeste beltran SS et al. MADHURI. 2013; 310(1 9): 2061- 2068 (http ://ed ucati on.Qu Gustavo [employer]. com/f aq/FA Q164) Not Available [address], [address], 02/11/2018 12:34:54 02/11/20 18 02/11/2018 lipid panel , serum chol/HDLC ratio 2.4 (calc ) <5.0 normal Not Available [address], [address], 02/11/2018 12:34:54 02/11/20 18 02/11/2018 lipid panel , serum non HDL cholesterol 122 mg/dL _(radha c) <130 normal For patie nts with diabe rylee plus 1 major ASCVD risk facto r, treat ing to a non-H DL-C goal of <100 mg/dL (LDL- C of <70 mg/dL ) is conschristine kayeo n. Not Available [address] [address] [place], [address], 02/11/2018 12:34:54 02/11/20 18 02/11/2018 CMP, serum or plasm a glucose 90 mg/dL 65-139 normal Non-f astin g refer ence inter adilene Not Available [address] [address] [place], [address], 02/11/2018 12:34:55 02/11/2002/11/2018 CMP, serum or plasm a urea nitrogen (BUN) 17 mg/dL 7-25 normal Not Available [address] [address] [place], [address], 02/11/2018 12:34:55 02/11/2002/11/2018 CMP, serum or plasm a creatinine 0.60 mg/dL 0.60-0 .93 normal For patie nts >49 years of age, the refer ence limit for Creat inine is appro ximat marilou 13% highe r for peopl e ident ified as Afric an-Am rosmery n. Not Available [address] [address] [place], [address], 02/11/2018 12:34:55 02/11/2002/11/2018 CMP, serum or plasm a eGFR non-afr. equatorial guinean 92 mL/mi n/1.7 3m2 > or = 60 normal Not Available [facility] [address] [address] [place], [address], 02/11/2018 12:34:55 02/11/20 18 02/11/2018 CMP, serum or plasm a eGFR 106 mL/mi n/1.7 3m2 > or = 60 normal Not Available [facility] [address] [address] [place], [address], 02/11/2018 12:34:55 02/11/20 18 02/11/2018 CMP, serum or plasm a BUN/creatini ne ratio NOT APPLIC ABLE (calc ) 6-22 Not Available [address], [address], 02/11/2018 12:34:55 02/11/20 18 02/11/2018 CMP, serum or plasm a sodium 133 mmol/ L 135-14 6 low Not Available [address], [address], 02/11/2018 12:34:55 02/11/20 18 02/11/2018 CMP, serum or plasm a potassium 4.7 mmol/ L 3.5-5. 3 normal Not Available [address], [address], 02/11/2018 12:34:55 02/11/2002/11/2018 CMP, serum or plasm a chloride 95 mmol/ L 98-110 low Not Available [address], [address], 02/11/2018 12:34:55 02/11/20 18 02/11/2018 CMP, serum or plasm a carbon dioxide 27 mmol/ L 20-32 normal Not Available [address], [address], 02/11/2018 12:34:55 02/11/20 18 02/11/2018 CMP, serum or plasm a calcium 9.8 mg/dL 8.6-10 .4 normal Not Available [facility] [address], [address], 02/11/2018 12:34:55 02/11/20 18 02/11/2018 CMP, serum or plasm a protein, total 7.2 g/dL 6.1-8. 1 normal Not Available [facility] [address], [address], 02/11/2018 12:34:55 02/11/20 18 02/11/2018 CMP, serum or plasm a albumin 4.6 g/dL 3.6-5. 1 normal Not Available [address], [address], 02/11/2018 12:34:55 02/11/20 18 02/11/2018 CMP, serum or plasm a globulin 2.6 g/dL_ (calc ) 1.9-3. 7 normal Not Available [address], [address], 02/11/2018 12:34:55 02/11/20 18 02/11/2018 CMP, serum or plasm a albumin/glob ulin ratio 1.8 (calc ) 1.0-2. 5 normal Not Available [address], [address], 02/11/2018 12:34:55 02/11/20 18 02/11/2018 CMP, serum or plasm a bilirubin, total 0.7 mg/dL 0.2-1. 2 normal Not Available [address], [address], 02/11/2018 12:34:55 02/11/20 18 02/11/2018 CMP, serum or plasm a alkaline phosphatase 64 U/L 33-130 normal Not Available [facility] [employer] [address], [address], 02/11/2018 12:34:55 02/11/20 18 02/11/2018 CMP, serum or plasm a AST 27 U/L 10-35 normal Not Available [address], [address], 02/11/2018 12:34:55 02/11/20 18 02/11/2018 CMP, serum or plasm a ALT 20 U/L 6-29 normal Not Available [address], [address], 02/11/2018 12:34:55 02/11/20 18 02/11/2018 CBC w/ auto diff white blood cell count 6.0 thous and/u L 3.8-10 .8 normal Not Available [address], [address], 02/11/2018 12:34:55 02/11/20 18 02/11/2018 CBC w/ auto diff red blood cell count 4.45 pollo on/uL 3.80-5 .10 normal Not Available [address], [address], 02/11/2018 12:34:55 02/11/20 18 02/11/2018 CBC w/ auto diff hemoglobin 14.3 g/dL 11.7-1 5.5 normal Not Available [address], [address], 02/11/2018 12:34:55 02/11/20 18 02/11/2018 CBC w/ auto diff hematocrit 42.2 % 35.0-4 5.0 normal Not Available [address], [address], 02/11/2018 12:34:55 02/11/20 18 02/11/2018 CBC w/ auto diff MCV 94.8 fL 80.0-1 00.0 normal Not Available [address], [address], 02/11/2018 12:34:55 02/11/20 18 02/11/2018 CBC w/ auto diff MCH 32.1 pg 27.0-3 3.0 normal Not Available [address], [address], 02/11/2018 12:34:55 02/11/20 18 02/11/2018 CBC w/ auto diff MCHC 33.9 g/dL 32.0-3 6.0 normal Not Available [address], [place], [address], 02/11/2018 12:34:55 02/11/20 18 02/11/2018 CBC w/ auto diff RDW 11.7 % 11.0-1 5.0 normal Not Available [address], [address], 02/11/2018 12:34:55 02/11/20 18 02/11/2018 CBC w/ auto diff platelet count 301 thous and/u L 140-40 0 normal Not Available [address], [address], 02/11/2018 12:34:55 02/11/2002/11/2018 CBC w/ auto diff MPV 9.9 fL 7.5-12 .5 normal Not Available [address], [address], 02/11/2018 12:34:55 02/11/20 18 02/11/2018 CBC w/ auto diff absolute neutrophils 3660 cells /uL 1500-7 800 normal Not Available [address], [address], 02/11/2018 12:34:55 02/11/2002/11/2018 CBC w/ auto diff absolute lymphocytes 1422 cells /uL 850-39 00 normal Not Available [address], [address], 02/11/2018 12:34:55 02/11/2002/11/2018 CBC w/ auto diff absolute monocytes 528 cells /uL 200-95 0 normal Not Available [address], [address], 02/11/2018 12:34:55 02/11/20 18 02/11/2018 CBC w/ auto diff absolute eosinophils 330 cells /uL 15-500 normal Not Available [address], [address], 02/11/2018 12:34:55 02/11/20 18 02/11/2018 CBC w/ auto diff absolute basophils 60 cells /uL 0-200 normal Not Available [address], [address], 02/11/2018 12:34:55 02/11/20 18 02/11/2018 CBC w/ auto diff neutrophils 61 % normal Not Available [address], [address], 02/11/2018 12:34:55 02/11/20 18 02/11/2018 CBC w/ auto diff lymphocytes 23.7 % normal Not Available [address], [address], 02/11/2018 12:34:55 02/11/2002/11/2018 CBC w/ auto diff monocytes 8.8 % normal Not Available [address], [address], 02/11/2018 12:34:55 02/11/2002/11/2018 CBC w/ auto diff eosinophils 5.5 % normal Not Available [address], [address], 02/11/2018 12:34:55 02/11/20 18 02/11/2018 CBC w/ auto diff basophils 1.0 % normal Not Available [address], [address], 02/11/2018 12:34:55 02/11/2002/11/2018 C-amadeo ctive prote in, quant itati ve, serum or plasm a C-reactive protein 0.7 mg/L <8.0 normal Not Available [address], [address], 02/11/2018 12:34:56 02/11/2002/11/2018 TSH, serum or plasm a TSH 3.66 mIU/L 0.40-4 .50 normal Not Available [address] [address] [place], [address], 02/11/2018 12:34:56 02/12/2002/12/2019 lipid panel , serum cholesterol, total 222 mg/dL <200 high Not Available [address], [address], 02/12/2019 03:46:45 02/12/2002/12/2019 lipid panel , serum HDL cholesterol 83 mg/dL >50 normal Not Available [facility] [employer] [address] [address] [place], [address], 02/12/2019 03:46:45 02/12/2002/12/2019 lipid panel , serum triglyceride s 94 mg/dL <150 normal Not Available [address], [address], 02/12/2019 03:46:45 02/12/2002/12/2019 lipid panel , serum LDL-choleste rol 119 mg/dL _(radha c) high Refer ence range : <100 Francisco able range <100 mg/dL for prima ry preve ntion ; <70 mg/dL for patie nts with CHD or diabe tic patie nts with > or = 2 CHD risk facto rs. LDL-C is now calcu lated using the Celeste n-Hop kins jaiu bernie n, which is a valid ated novel metho d hubert rosario r accur acy than the Fried zeeshan equat ion in the estim ation of LDL-C . Celeste beltran SS et al. MADHURI. 2013; 310(1 9): 2061- 2068 (http ://ed ucati on.Qu Gustavo chan [employer]. com/f aq/FA Q164) Not Available [facility] [address] [address] [place], [address], 02/12/2019 03:46:45 02/12/2002/12/2019 lipid panel , serum chol/HDLC ratio 2.7 (calc ) <5.0 normal Not Available [address], [address], 02/12/2019 03:46:45 02/12/2002/12/2019 lipid panel , serum non HDL cholesterol 139 mg/dL _(radha c) <130 high For patie nts with diabe rylee plus 1 major ASCVD risk facto r, treat ing to a non-H DL-C goal of <100 mg/dL (LDL- C of <70 mg/dL ) is consi dered a thera peuti c optio n. Not Available [address], [address], 02/12/2019 03:46:45 02/12/2002/12/2019 AST/S GOT (aspa rtate amino trans feras e), serum or plasm a AST 17 U/L 10-35 normal Not Available [address], [address], 02/12/2019 03:46:45 02/12/2002/12/2019 BMP, serum or plasm a glucose 84 mg/dL 65-99 normal Fasti ng refer ence inter adilene Not Available [address], [address], 02/12/2019 03:46:46 02/12/2002/12/2019 BMP, serum or plasm a urea nitrogen (BUN) 14 mg/dL 7-25 normal Not Available [address], [address], 02/12/2019 03:46:46 02/12/2002/12/2019 BMP, serum or plasm a creatinine 0.59 mg/dL 0.60-0 .93 low For patie nts >49 years of age, the refer ence limit for Creat inine is appro ximat marilou 13% highe r for peopl e ident ified as Afric an-Am rosmery n. Not Available [facility] [address] [place], [address], 02/12/2019 03:46:46 02/12/2002/12/2019 BMP, serum or plasm a eGFR non-afr. equatorial guinean 92 mL/mi n/1.7 3m2 > or = 60 normal Not Available [address] [address] [place], [address], 02/12/2019 03:46:46 02/12/2002/12/2019 BMP, serum or plasm a eGFR 106 mL/mi n/1.7 3m2 > or = 60 normal Not Available [address], [address], 02/12/2019 03:46:46 02/12/2002/12/2019 BMP, serum or plasm a BUN/creatini ne ratio 24 (calc ) 6-22 high Not Available [address], [address], 02/12/2019 03:46:46 02/12/2002/12/2019 BMP, serum or plasm a sodium 136 mmol/ L 135-14 6 normal Not Available [address], [address], 02/12/2019 03:46:46 02/12/2002/12/2019 BMP, serum or plasm a potassium 4.6 mmol/ L 3.5-5. 3 normal Not Available [address], [address], 02/12/2019 03:46:46 02/12/2002/12/2019 BMP, serum or plasm a chloride 99 mmol/ L 98-110 normal Not Available [address], [address], 02/12/2019 03:46:46 02/12/2002/12/2019 BMP, serum or plasm a carbon dioxide 29 mmol/ L 20-32 normal Not Available [facility] [address] [place], [address], 02/12/2019 03:46:46 02/12/20 19 02/12/2019 BMP, serum or plasm a calcium 9.4 mg/dL 8.6-10 .4 normal Not Available [facility] [address] [address], [place], [address], 02/12/2019 03:46:46 05/28/19 17 05/28/2016 XR, lumba r spine No observ ation record ed. [email or web address] Not Available 2016 22:17:17 02/01/20 17 01/31/2017 MAMMO , phillipe katerina, digit al, bilat eral No observ ation record ed. [facility] (Imaging) [address], [place], [address], 02/04/2017 17:27:11 02/06/20 17 01/31/2017 MAMMO , reggie costag, digit al, bilat eral, w/ CAD No observ ation record ed. [facility] Not Available 2016 21:20:18 02/11/20 18 02/10/2018 MAMMO , scree katerina, bilat eral No observ ation record ed. [address] (Imaging) [address], [place], [address], 02/10/2018 19:00:20 11/29/19 19 11/21/2018 DEXA No observ ation record ed. [email or web address] n [facility] [address], [place], [address], 11/28/2018 16:57:21 12/20/1912/19/2018 XR, elbow , 3 or more view No observ ation record ed. [address] [facility] , [place], [address], 12/22/2018 18:22:19 01/17/2001/1601/16/2019 XR, elbow No observ ation record ed. [email or web address] [address] [place], [address], 01/16/2019 18:15:40 02/17/20 19 02/16/2019 MAMMO , scree katerina, bilat eral No observ ation record ed. [facility] [address], [place], [address], 02/16/2019 16:08:46 02/28/20 19 02/27/2019 XR, elbow , 3 or more view No observ ation record ed. [email or web address] [address] [place], [address], 02/27/2019 16:21:58 Result Notes None recorded. Problems Name Problem SNOMED Code Status Onset Date Resolution Date Notes Provider Name and Address Organization Details Recorded Time Disorder of bone and articula r cartilag e 149369068 Completed 201205/03/2012 Location : None;Sev erity: Moderate ;Progres s: Stable;A dded By: Tara Hudson;Add to Current Problems : NO Not Available [facility] 7 10:01:45 Malaise and fatigue 055461057 Active 2012 Location : None;Sev erity: Moderate ;Progres s: Stable;A dded By: Dinora Toth;Add to Current Problems : NO Not Available [facility] 7 10:01:45 Senile hyperker atosis 536532412 Completed 201308/30/2013 Location : None;Sev erity: Moderate ;Progres s: Stable;A dded By: Carrie Hammonds;Add to Current Problems : NO Not Available [facility] 7 10:01:45 Chronic pain 59751752 Active 2012 Location : None;Sev erity: Moderate ;Progres s: Stable;A dded By: Lizz yMarck;Marcus d to Current Problems : YES Not Available [facility] 7 10:01:45 Pain in limb 78320333 Active 2014 Location : None;Sev erity: Moderate ;Progres s: Stable;A dded By: Christina Hdez; Add to Current Problems : YES Not Available [facility] 7 10:01:45 Screenin g for malignan t neoplasm of colon Active 2012 Location : None;Sev erity: Moderate ;Progres s: Stable;A dded By: Tara Hudson;Add to Current Problems : NO Not Available [facility] 7 10:01:45 Hearing loss [id number] Active 2013 Location : None;Sev erity: Moderate ;Progres s: Stable;A dded By: Tara Hudson;Add to Current Problems : NO Not Available [facility] 7 10:01:45 Female genital organ symptoms [id number] Completed 201408/24/2014 Location : None;Sev erity: Moderate ;Progres s: Stable;A dded By: Tara Hudson;Add to Current Problems : YES Not Available [facility] 7 10:01:45 Lumbosac ral spondylo sis without myelopat hy 48070602 Active 2012 Location : None;Sev erity: Moderate ;Progres s: Stable;A dded By: Tara Hudson;Add to Current Problems : YES Not Available [facility] 7 10:01:45 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 Active 2014 Location : None;Sev erity: Moderate ;Progres s: Stable;A dded By: Tara Hudson;Add to Current Problems : NO Not Available [facility] 7 10:01:45 Ganglion of joint 51456422 Completed 201312/26/2013 Location : None;Sev erity: Moderate ;Progres s: Stable;A dded By: Tabatha Rivera i;A dd to Current Problems : NO Not Available [facility] 7 10:01:45 Enthesop athy of wrist AND/OR carpus [id number] Completed 201312/26/2013 Location : None;Sev erity: Moderate ;Progres s: Stable;A dded By: Tabatha Rivera i;Li dd to Current Problems : NO Not Available [facility] 7 10:01:45 Migraine without aura 19132600 Active 2012 Location : None;Sev erity: Moderate ;Progres s: Stable;A dded By: Tabatha Rivera i;Li dd to Current Problems : YES Not Available [facility] 7 10:01:46 Low back pain 735893471 Active 2014 Location : None;Sev erity: Moderate ;Progres s: Stable;A dded By: Tabatha Rivera i;Li dd to Current Problems : YES Not Available [facility] 7 10:01:46 Dyspnea 717863491 Completed 201308/30/2013 Location : None;Sev erity: Moderate ;Progres s: Stable;A dded By: Monica Hussein;Ad d to Current Problems : NO Not Available [facility] 7 10:01:46 Screenin g for osteopor osis Active 2015 Location : None;Sev erity: Moderate ;Progres s: Stable;A dded By: Sosa Rahman;Add to Current Problems : YES Not Available [facility] 7 10:01:46 Disorder of bone and articula r cartilag e [id number] Active 2015 Location : None;Sev erity: Moderate ;Progres s: Stable;A dded By: Sosa Rahman;Add to Current Problems : NO Not Available [facility] 7 10:01:46 Benign essentia l hyperten kwadwo 7423212 Active 2014 Location : None;Sev erity: Moderate ;Progres s: Stable;A dded By: Mary Anne Cuadra;Add to Current Problems : YES Not Available [facility] 7 10:01:46 Spontane ous ecchymos is 865553042 Active 2015 Location : None;Sev erity: Moderate ;Progres s: Stable;A dded By: Mary Anne Cuadra;Add to Current Problems : YES Not Available [facility] 7 10:01:46 Problem Notes None recorded. Procedures Surgical History Date Name Laterality Status Provider Name and Address Organization Details Recorded Time 11/11/19 19 AIMS completed Alexa Et[place] [facility] 11/10/2018 11:01:06 11/11/19 19 SLUMS EXAM completed [place] [facility] 11/10/2018 11:01:06 11/09/19 17 Generic Procedure completed Tara [place] [facility] 11/08/2016 14:22:38 Back Surgery completed [facility] [address] 05/01/2016 14:36:09 Eye Surgery completed [facility] [address] 05/01/2016 14:36:27 Breast Surgery completed [facility] [address] 11/05/2016 17:44:53 Dilation and Curettage completed [facility] [address] 05/01/2016 14:36:38 Imaging Results Imaging Date Name Status LastModified by Organiz ation Details LastModified Time 05/28/2016 XR, lumbar spine completed magn Information not available 05/28/2016 22:17:17 01/31/2017 MAMMO, screening, digital, bilateral completed [facility] (Imaging) [address] [facility] [address] [place] [address], [address], 02/04/2017 17:27:11 01/31/2017 MAMMO, screening, digital, bilateral, w/ CAD completed [facility] Information not available 02/05/2017 21:20:18 02/10/2018 MAMMO, screening, bilateral completed [address] (Imaging) [address] [facility] [address], [place], [address], 02/10/2018 19:00:20 11/21/2018 DEXA completed [facility] [address] [facility] [address], [place], [address], 11/28/2018 16:57:21 12/19/2018 XR, elbow, 3 or more view completed [address] [place], [address], 12/22/2018 18:22:19 01/16/2019 XR, elbow completed [email or web address] [place], [address], 01/16/2019 18:15:40 02/16/2019 MAMMO, screening, bilateral completed [facility] (Imaging) [address], [place], [address], 02/16/2019 16:08:46 02/27/2019 XR, elbow, 3 or more view completed [email or web address] [place] [address] [place], [address], 02/27/2019 16:21:58 Procedure Notes None recorded. Medical Equipment None Reported. Allergies Allergen ID Allergen Name Allergen Category Reaction Reaction Severity Criticality Documentation Date Start Date Code Code System Note Provider Name and Address Organization Details Recorded Time [id number] b1130 erythromy jet medicatio n nausea moderate Not available 04/25/20162012 4053 RxNorm React ion: nause a;Sev erity : Moder ate; Comme nt: Aller gy Type: Adver se React ion; Not Available Not Available Not Available [id number] b1130 Biaxin medicatio n nausea moderate Not available 04/25/2016201272 9 RxNorm React ion: nause a;Sev erity : Moder ate; Comme nt: Aller gy Type: Adver se React ion; Not Available Not Available Not Available [id number] 2824e bisoprolo l / hydrochlo rothiazid e medicatio n Not available Not available Not available 04/25/2016201231 7 RxNorm Sever ity: Moder ate; Comme nt: DYSPH AGIA; Aller gy Type: Adver se React ion; Not Available Not Available Not Available [id number] 2824e Medrol medicatio n Not available Not available Not available 04/25/2016201270 2 RxNorm Sever ity: Moder ate; Comme nt: Aller gy Type: Adver se React ion; Not Available Not Available Not Available [id number] 2824e codeine phosphate medicatio n Not available Not available Not available 04/25/20162012 2672 RxNorm Effie ity: Moder ate; Comme nt: Aller gy Type: Adver se React ion; Not Available Not Available Not Available [id number] 2824e gabapenti n medicatio n Not available Not available Not available 05/01/2016 18682 RxNorm hair loss Not Available Not Available Not Available Medications Name Sig Start Date Stop Date Status Note LastModified by Organization Details LastModified Time cyclobenza dudley 10 mg tablet Please specify direction s, refills and quantity active Not Available Not Available No t Available amoxicilli n 500 mg capsule 11/10 completed Not Available Not Available Not Available Vicodin 5 mg-500 mg tablet Take 1 tablet(s) by mouth q 4 to 6 hr prn 12/11 completed RxNorm : 676327 ;Allow Substi tution : True Not Available Not Available Not Available prednisone 20 mg tablet 3 po q day for 3 days then 2 po q day for 3 days then 1 po q day for 4 days 03/21 completed RxNorm : 408190 ;Allow Substi tution : True Not Available Not Available Not Available Voltaren 75 mg tablet,del ayed release Take 1 tablet(s) by mouth bid 12/11 completed RxNorm : 749755 ;Allow Substi tution : True Not Available Not Available Not Available oxycodone- acetaminop hen 5 mg-325 mg tablet 11/10 completed Not Available Not Available Not Available Denavir 1 % topical cream Apply sufficien t amount to affected area q2h for 4 days while awake 04/27 completed RxNorm : 691155 ;Allow Substi tution : True Not Available Not Available Not Available methocarba mol 750 mg tablet TAKE 1 TABLET BY MOUTH 3 TIMES A DAY NEEDED , DO NOT DRIVE WHILE TAKING THIS MEDICATIO N 2019 active Not Available Not Available Not Avai lable meclizine 25 mg tablet Take 1 tablet 3 times a day by oral route. 11/10 completed Not Available Not Available Not Available lisinopril 10 mg tablet Take 1 tab daily active Not Available Not Available No t Available diclofenac sodium 50 mg tablet,del ayed release Take 1 tablet by mouth three a day active Not Available Not Available No t Available Imitrex 25 mg tablet Take 1 tablet(s) by mouth prn for migraine 11/14 completed RxNorm : 861364 ;Allow Substi tution : True Not Available Not Available Not Available fluticason e propionate 50 mcg/actuat ion nasal spray,susp ension USE 2 SPRAYS INTO EACH NOSTRIL EVERY DAY 2019 active Not Available Not Available Not Avai lable Tylenol Extra Strength 500 mg tablet Take 2 tabs (1000mg) daily 10/03 completed RxNorm : 644489 ;Allow Substi tution : True Not Available Not Available Not Available Restasis 0.05 % eye drops in a dropperett e Instill 1 drop(s) to each eye bid 10/31 completed RxNorm : 083949 ;Allow Substi tution : True Not Available Not Available Not Available nitrofuran toin monohydrat e/macrocry stals 100 mg capsule 11/10 completed Not Available Not Available Not Available gabapentin 300 mg tablet Take 1 capsule po q AM and 2 po at bedtime 05/01 completed Allow Substi tution : True Not Available Not Available Not Available oxycodone 1/2 tab po daily prn 11/08 completed Not Available Not Available Not Available Vitals Date Recorded Body height Provider Name an d Address Organization Details Last Updated DateTime 10/31/2017 165.[facility]17 Date Recorded Body mass index (BMI) Body weight Provider Name and Address Organization Details Last Updated DateTime 10/31/2017 19.5 kg/m2 38809.66 g [facility]2017 12:47:51 Date Recorded Body temperature Provider Name a nd Address Organization Details Last Updated DateTime 10/31/2017 97.1 [degF] [facility] 12:49:04 Date Recorded Oxygen saturation Oxygen saturation in Arterial blood by Pulse oximetry Provider Name and Address Organization Details Last Updated DateTime 10/31/2017 98 % 98 % Tabatha Rainey [facility] 10/31/2017 12:49:05 Date Recorded Heart rate Provider Name an d Address Organization Details Last Updated DateTime 10/31/2017 52 /min Tabatha Rainey [facility] 2017 12:49:07 Date Recorded Body height Provider Name an d Address Organization Details Last Updated DateTime 11/10/2018 165.1 cm Alexa Etienne MA [facility] 019 11:00:53 Date Recorded Body mass index (BMI) Body weight Provider Name and Address Organization Details Last Updated DateTime 11/10/2018 19.3 kg/m2 60671.71 g Alexa Etienne MA [facility] 11/10/2018 11:00:56 Date Recorded Body temperature Provider Name a nd Address Organization Details Last Updated DateTime 11/10/2018 97 [degF] Alexa Etienne MA [facility] 019 11:10:28 Date Recorded Oxygen saturation Oxygen saturation in Arterial blood by Pulse oximetry Provider Name and Address Organization Details Last Updated DateTime 11/10/2018 99 % 99 % Alexa Etienne MA [facility] 11/10/2018 11:10:29 Date Recorded Heart rate Provider Name an d Address Organization Details Last Updated DateTime 11/10/2018 66 /min Alexa Etienne MA [facility] 019 11:10:32 Date Recorded Body height Provider Name an d Address Organization Details Last Updated DateTime 05/01/2016 165.1 cm Tabatha Rainey [facility] 2016 11:10:10 Date Recorded Body weight Body mass index (BMI) Provider Name and Address Organization Details Last Updated DateTime 05/01/2016 65932.73 g 20.2 kg/m2 Tabatha Rainey [facility] 05/01/2016 11:13:14 Date Recorded Body temperature Provider Name a nd Address Organization Details Last Updated DateTime 05/01/2016 97.7 [degF] Tabatha Rainey [facility] 05/01 11:18:51 Date Recorded Oxygen saturation Oxygen saturation in Arterial blood by Pulse oximetry Provider Name and Address Organization Details Last Updated DateTime 05/01/2016 98 % 98 % Tabatha Rainey [facility] 05/01/2016 11:18:52 Date Recorded Heart rate Provider Name an d Address Organization Details Last Updated DateTime 05/01/2016 70 /min Tabatha Rainey [facility] 2016 11:18:54 Date Recorded Body height Provider Name an d Address Organization Details Last Updated DateTime 11/08/2016 165.1 cm Tabatha Rainey [facility] 2016 10:04:07 Date Recorded Body mass index (BMI) Body weight Provider Name and Address Organization Details Last Updated DateTime 11/08/2016 19.7 kg/m2 39301.6 g Tabtaha Rainey [facility] 11/08/2016 10:09:08 Date Recorded Body temperature Provider Name a nd Address Organization Details Last Updated DateTime 11/08/2016 97.2 [degF] Tabatha Rainey [facility] 11/08 10:09:13 Date Recorded Oxygen saturation Oxygen saturation in Arterial blood by Pulse oximetry Provider Name and Address Organization Details Last Updated DateTime 11/08/2016 98 % 98 % Tabatha Rainey [facility] 11/08/2016 10:09:26 Date Recorded Heart rate Provider Name an d Address Organization Details Last Updated DateTime 11/08/2016 70 /min Tabatha Rainey [facility] 2016 10:09:27 Date Recorded Systolic blood pressure Diastolic blood pressure Provider Name and Address Organization Details Last Updated DateTime 10/31/2017 110 mm[Hg] 80 mm[Hg] Tabatha Rainey [facility] 10/31/2017 12:50:07 Date Recorded Systolic blood pressure Diastolic blood pressure Provider Name and Address Organization Details Last Updated DateTime 11/10/2018 117 mm[Hg] 82 mm[Hg] Alexa Etienne MA [facility] 11/10/2018 11:11:23 Date Recorded Systolic blood pressure Diastolic blood pressure Provider Name and Address Organization Details Last Updated DateTime 05/01/2016 112 mm[Hg] 74 mm[Hg] Tabatha Rainey [facility] 05/01/2016 11:19:38 Date Recorded Systolic blood pressure Diastolic blood pressure Provider Name and Address Organization Details Last Updated DateTime 11/08/2016 112 mm[Hg] 80 mm[Hg] Tabatha Rainey [facility] 11/08/2016 10:10:07 Social History Question Answer Notes LastModified by Organizat ion Details LastModified Time Tobacco Smoking Status Never Smoker Tabatha young [facility] 05/01/2016 09:47:08 What Was The Date Of Your Most Recent Tobacco Screening? 10/31/2017 Information n ot available 11/13/2018 Sex: Unknown Functional Status None recorded. Mental Status None recorded. Family History Relationship Description Onset Age of this Age Resolved Age Notes LastModified by Organization Details LastModified Time Father Alcoholism [email or web address] Not ankita ilable 05/01/2016 14:36:52 Father Depressive disorder [email or web address] Not available 01/2017 14:37:00 Father Hypertensive disorder [email or web address] Not available 01/2017 14:37:06 Unspecified Relation Coronary arterioscler osis ssadlowskima Not available 17:45:13 Unspecified Relation Cerebrovascu lar accident GM ssadlowskima Not available 11/05/2016 17:45:23 Medical History Condition Response High Blood Pressure Y Muscle, Joint, or Bone Problems Y Headaches Y Gynecological HistoryNo gynecological history recorded. Obstetrics History GPAL:G 0 P 0 0 0 0 Immunizations Vaccine Type Date Status Note Provider Nam e and Address Organization Details Recorded Time Influenza, split virus, quadrivalent, preservative 9 completed Sugar young [facility] 02/10/2019 08:49:55 Influenza, high-dose, trivalent, PF 6 completed Tressa young [facility] 02/06/2016 10:06:33 Pneumococcal conjugate PCV 13 5 completed Not Available [facility] 04/25/2016 05:39:04 Influenza, split virus, trivalent, preservative 5 completed Not Available [facility] 04/25/2016 05:39:04 Tdap 0 completed Not Available [facility] 04/25/2016 05:39:04 zoster live 8 completed Not Available [facility] 04/25/2016 05:39:04 Influenza, split virus, trivalent, preservative 3 completed Not Available [facility] 04/25/2016 05:39:04 pneumococcal polysaccharide PPV23 0 completed Not Available [facility] 04/25/2016 05:39:05 Influenza, split virus, trivalent, preservative 2 completed Not Available [facility] 04/25/2016 05:39:05 Influenza, high-dose, trivalent, PF 7 completed Mica [place], [place] [facility] 02/14/2017 12:54:13 pneumococcal polysaccharide PPV23 7 completed Mica [place] [facility] 02/14/2017 12:55:08 Influenza, high-dose, trivalent, PF 8 completed Suri Pearce MD Attn: Accounting[address] [place], [address], [place] [facility] 01/31/2018 18:02:58 Past Encounters Encounter ID Performer Location Encounter Start Date Encounter Closed Date Diagnosis/Indication Diagnosis SNOMED-CT Code Diagnosis ICD10 Code Diagnosis Note [id number] [place] [id number] [facility] [address] [place] [address] 05/01/2016 10:56:51 05/02/2016 16:39:27 Benign essential hypertension 3266582 I10 Osteoarthr itis of wrist 585856421 M19.031 M19.869 [id number] [facility] [address] [facility] [address] [place] [address] 11/08/2016 09:54:23 11/08/2016 14:33:05 Osteoarthritis of wrist 589455981 M19.031 M19.032 Benign ess ential hypertension 3621396 I10 Allergic r hinitis caused by pollen 90532406 J30.1 Screening for malignant neoplasm of breast 388381025 Z12.39 Senile hyperkeratosis 39 5606344 L82.1 [id number] [facility] [address] [place] [address] [place] [address] 10/31/2017 12:18:48 11/01/2017 12:56:39 Benign essential hypertension 7421324 I10 Fatigue 06431264 R53.83 Osteoarthr itis of wrist 339645261 M19.031 M19.032 Allergic r hinitis caused by pollen 92658228 J30.1 Vertigo 703410563 R42 Pain of left hand 322274 7609 55044 M79.642 and ganglions of right hand [id number] Tara Hudson [facility] [address] [place] [address] [place] [id number] 11/10/2018 10:37:45 11/10/2018 12:16:24 Adult health examination 166763459 Z00.00 Benign ess ential hypertension 1245054 I10 Osteoarthr itis of wrist 677187661 M19.031 M19.032 Low back pain 625220879 M54.5 Ganglion of wrist 159648 009 M67.431 Osteopenia 900370347 M85 .9 Health Concerns Section Related Observation LastModified by Organization Detai ls LastModified Time None Recorded Concern Status LastModified by Organization Details LastModified Time None Recorded Advance Directives Directive None Recorded Payers Encounter Date Sequence Insurance Name Policy Number Policy Jacques Covered Member ID Jacques Member ID Guarantor Name 05/01/2016 1 [place] Katina Vinson [id number] Katina Vinson 05/01/2016 2 [employer]ED [employer]ANCE - [employer] (MEDICARE SUPPLEMENT) PLAN F Katina Thomas [id number] Katina Vinson 11/08/2016 1 [place] Katina Vinson [id number] Katina Vinson 11/08/2016 2 [employer] - [employer] (MEDICARE SUPPLEMENT) PLAN F Katina Vinson [id number] Katina Vinson 10/31/2017 1 [place] Katina Vinson [id number] Katina Vinson 10/31/2017 2 [employer] - [employer] (MEDICARE SUPPLEMENT) PLAN F Katina Vinson [id number] Katina Vinson 11/10/2018 2 [employer] - [employer] (MEDICARE SUPPLEMENT) PLAN F Katina Vinson [id number] Katina Vinson 11/10/2018 1 [place] Katina Vinson [id number] Katina Vinson Notes Date Note Type Note Provider Name and Address Organization Details Recorded Time 05/01/2016 text/html Hypertension F/UReported bypatient.Associated Symptoms:no dizziness; no lightheadedness; no chest pain; no shortness of breath; no palpitations; no edema Lifestyle:regular exercise; limiting/avoiding salt Medications:taking medications as directed; no side effects from medication; checks blood pressure at home, range: (138/80 last reading)Rash/Skin LesionReported bypatient.Location:[facility] Quality:not painful;multiple Severity:worsening Duration:has noted for >3 months Context:no new detergents or skin products Tara young [place] [facility] 05/01/2016 11:55:36 11/08/2016 text/html DysphagiaReporte d bypatient.Location:[facility] Quality:tightness Severity:same Duration:present for 6-12 months Onset/Timing:worse with meals Context:solids only Alleviating Factors:drinking liquids Associated Symptoms:no chest pain; Ear congestion over the past few days, takes loratidine daily with no relief.Notes:Hx of ulcerRash/Skin LesionReported bypatient.Location:[facility]; Removal of Seboric Keratosis. 1cm lesions. Quality:not painful;itchy;multiple Severity:worsening Duration:has noted for >3 months Context:no new detergents or skin products Aggravating Factors:clothing (bra line) Associated Symptoms:no fever Tara [place] [facility] 11/08/2016 14:28:43 10/31/2017 text/html Hypertension F/UReported bypatient.Associated Symptoms:no chest pain; no shortness of breath; no palpitations; no edema; no calf pain with exertion;dizziness(las t for several seconds, started about 4-5 months ago);lightheadedness Lifestyle:regular exercise (daily); limiting/avoiding salt Medications:taking medications as directed; no side effects from medication; Does not check BP.Rash/Skin LesionReported bypatient.Location:[facility] (right); skin masses Quality:not painful; stable;multiple(two) Severity:worsening Duration:has noted for >3 months (1 1/2 months) Onset/Timing:abrupt onset Context:no new detergents or skin products; no one else with similar rash; not scratching Alleviating Factors:nothing gives relief Aggravating Factors:nothing makes it worse Associated Symptoms:no fever DEVIN Sotelo [facility] 10/31/2017 14:02:59 11/10/2018 text/html Medicare Annual Wellness VisitReported bypatient.Diet and Nutrition:healthy diet Fracture Risk:no history of fractures Physical Activity:exercises on a regular basis Depression Risk:never feels sad, empty, or tearful; no loss of interest in activities Orientation:no disorientation to time; no disorientation to date; no disorientation to place Concentration and Memory:no memory lapses or loss Hearing:wears hearing aids Vision:wears glasses Activities of Daily Living:able to bathe with limited or no assistance; able to contol urination and bowels; able to dress with limited or no assistance; able to feed self with limited or no assistance; able to get out of chair or bed with limited or no assistance; able to groom with limited or no assistance; able to toilet with limited or no assistance Instrumental Activities of Daily Living:able to do house work with limited or no assistance; able to grocery shop with limited or no assistance; able to manage medications with limited or no assistance; able to manage money with limited or no assistance; able to prepare meals with limited or no assistance; able to use the phone with limited or no assistance Falls Risk Assessment:dizziness/v ertigo DEVIN Sotelo 11/10/2018 12:07:18 OBGyn Episode No OBEpisode recorded.
== END 2024-05-21 12:38 | disposition home or self-care (01) ==
LOC: CHSIMG 12:40
PROVIDERS: PCP Nurse Practitioner Family; Visit Provider Nurse Practitioner Family
DX: Z78.0 Asymptomatic menopausal state (principal); M85.88 Other specified disorders of bone density and structure, other site
CPT/HCPCS: 77080

== ENCOUNTER 2024-06-29 08:04 | Outpatient (CLI) | payer MEDICARE, SELFPAY ==
--- OUTSIDE RECORDS SUMMARY | 2024-06-29 08:16 | XMS_ITS | Referral Summary ---
Author Organization [facility] Address [address] [place] [address] Care Team Providers Care Sys Dir Name Role Phone Tara Hudson MD Primary Care Provider [phone] Source Comments [facility],non-owned Affiliates and Associated Physician Practices is amultiple site organization consisting of ambulatory clinics and hospital sitesin [place], [place], [place] and [place]. This disclosure is being madepursuant to the Care Everywhere program and may not contain all information available regarding this patient. 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 Pulse 80 05/27/2018 12:26 PM SERVICE ENGINE REPAIRER Temperature 37 C (98.6 F) 05/27/2018 12:26 PM SERVICE ENGINE REPAIRER Respiratory Rate 16 05/27/2018 12:26 PM SERVICE ENGINE REPAIRER Oxygen Saturation 100% 05/27/2018 12:26 PM SERVICE ENGINE REPAIRER Inhaled Oxygen Concentration - - Weight 52.2 kg (115 lb) 05/27/2018 12:26 PM SERVICE ENGINE REPAIRER Height 162.6 cm (5' 4 ) 05/27/2018 12:26 PM SERVICE ENGINE REPAIRER Body Mass Index 19.74 05/27/2018 12:26 PM SERVICE ENGINE REPAIRER Plan of Treatment Not on file Care Teams Sys Dir Relationship Specialty Start Date End Date Tara Hudson MD [address] [facility] [address] [place] [address] PCP - General 12/12/12
--- OUTSIDE RECORDS SUMMARY | 2024-06-29 08:16 | XMS_ITS | Clinical Summary ---
Author Organization [facility] [address] [facility] Address [address] [place] [address] Care Team Providers Care Quality Assurance Assessor Name Role Phone Emily Tejada MD Primary Care Provider Unavaila ble Allergies Active Allergy Reactions Criticality Noted Date Comments Beta-Blockers (Beta-Adrenergic Blocking Agts) Other (See Comments) High 03/01/2020 petechia Bisoprolol-Hydrochlorothiaz moon Unknown 05/03/2012 petechia Clarithromycin Nausea and Vomiting Low 03/01/2020 Erythromycin Nausea and Vomiting Low 03/01/2020 Gabapentin Nausea and Vomiting Low 12/05/2018 Gluten Other (See Comments) Low 11/29/2017 rhinitis, abd distention Methylprednisolone Nausea and Vomiting Low 05/03/2012 GI upset Tramadol Nausea and Vomiting Low 03/01/2020 Medications lisinopriL (PRINIVIL) 20 mg tablet Take 20 mg by mouth daily. Active simvastatin (ZOCOR) 10 mg tablet Take 10 mg by mouth daily at bedtime. Active methocarbamoL (ROBAXIN) 750 mg tablet Take 750 mg by mouth 1 time daily as needed. Active fexofenadine (MARIAM) 180 mg tablet Take 180 mg by mouth 1 time daily as needed for Allergies. Active multivitamin (DAILY-EKTA) tablet Take 1 Tablet by mouth daily. Active biotin 5,000 mcg Tablet, Sublingual Place 5,000 mcg under tongue daily. Active lutein 40 mg Capsule Take 40 mg by mouth daily. Active cholecalciferol, Vitamin D3, 50 mcg (2,000 unit) Tablet Take 2,000 Units by mouth daily. Active zinc 50 mg Tablet Take 50 mg by mouth daily. Active ALPRAZolam (XANAX) 0.25 mg tablet Take 0.125 mg by mouth 1 time daily as needed for Anxiety. 10/13/2020 Active calcium cit/Mgox/vit D3/B6/min (CALCIUM CITRATE + D WITH MAG ORAL) Take 1 Tablet by mouth daily. Active glucosamine/richard dr seda carreno (OSTEO BI-FLEX ORAL) Take 2 Tablets by mouth daily. Active omega 3,6,9 combination no.7 (OMEGA DHA ORAL) Take 1 Capsule by mouth daily. Active meloxicam (MOBIC) 15 mg tablet Take 15 mg by mouth daily. 02/12/2022 Active Active Problems Problem Noted Date Diagnosed Date Pseudoarthrosis of lumbar spine 12/20/2021 Dizziness 10/17/2020 Hypercholesterolemia 10/17/2020 Murmur, heart 10/17/2020 Palpitations 10/17/2020 Syncope and collapse 10/17/2020 Other spondylosis with radiculopathy, lumbar reg ion 03/01/2020 Other secondary scoliosis, lumbar region 020 Postlaminectomy syndrome, lumbar region 03/01/20 20 Trochanteric bursitis of right hip 11/04/2019 Closed nondisplaced fracture of head of right radius with routine healing 01/20/2019 Peroneal tendinitis of right lower extremity Abnormal EKG 12/02/2017 Overview (01/24/2022): EKG done on 11/29/2017 showed sinus bradycardia with first-degree AV block. Left axis deviation noted. Possible left anterior fascicular block noted. Nonspecific anterior T-wave changes noted. Compared to previous EKG done in January 2016 with no signi Moderate tricuspid insufficiency 12/02/2017 Overview (01/24/2022): Echo in 2013. Clinically she has no swelling. Spondylolisthesis, lumbar region 01/02/2016 Disorder of bone and articular cartilage 016 Spontaneous ecchymosis 11/10/2015 Body mass index (BMI) less than or equal to 19 i n adult 09/07/2015 Pain in limb 02/10/2015 Benign essential hypertension 10/12/2014 Low back pain 10/12/2014 Asymmetrical sensorineural hearing loss 08/09/19 13 Chronic pain 05/03/2012 Lumbosacral spondylosis without myelopathy 05/03 Migraine without aura 05/03/2012 Malaise and fatigue 04/30/2012 Subjective tinnitus 08/19/2007 Immunizations Immunization Administration Dates Next Due (ADACEL/BOOSTRIX)(10 YR UP) TDAP VACCINE, 0.5ML, IM 08/21/2009 (PNEUMOVAX 23)(50 YRS UP) PN EUMOCOCCAL POLYSACCHARIDE (PPV23) 0.5 ML, IM 02/13/2017,12/21/2009 (PREVNAR 13)(6 WKS UP) PNEUM OCOCCAL CONJUGATE (PCV13) 0.5 ML, IM 01/20/2015 INFLUENZA VACCINE HIGH DOSE QUADRIVALENT 65 YR UP PF IM 01/05/2020 INFLUENZA VACCINE QUADRIVALE NT 6 MOS UP IM 01/20/2019 Influenza Seasonal Unspecifi ed Formulation IM 12/28/2020,01/20/2015,01/24/2013,02/06 Influenza Vaccine High Dose 65+ Yrs IM 8,02/13/2017,02/01/2016 Zoster Vaccine Live SQ 05/30/2007 Family History Medical History Relation Name Comments Depression Father Carlos Heart Disease Maternal Grandmother Aura Hogue Hypertension Maternal Grandmother Aura Zieglerer Stroke Maternal Grandmother Aura Hogue Other Mother Suri Relation Name Status Comments Father Carlos Maternal Grandmother Aura Zieglerer Mother Suri Social History Tobacco Use Types Packs/Day Years Used Date Smoking Tobacco: Never Smokeless Tobacco: Never Tobacco Cessation:Counseling Given: No Alcohol Use Standard Drinks/Week Comments Yes 2 (1 standard drink = 0.6 oz pur e alcohol) Comments No Sex and Gender Information Value Date Recorded Sex Assigned at Not on file Legal Sex Female 2:42 PM CDT Gender Identity Not on file Sexual Orientation Not on file Last Filed Vital Signs Vital Sign Reading Time Taken Comments Blood Pressure 132/82 05/31/2022 11:05 AM HOTEL MAINTENANCE TECHNICIAN Pulse 100 12/22/2021 12:26 PM CDT Temperature 36.7 C (98.1 F) 01/02/2022 10:54 AM CDT Respiratory Rate 16 01/02/2022 10:54 AM CDT Oxygen Saturation 100% 12/22/2021 12:26 PM CDT Inhaled Oxygen Concentration - - Weight 52.7 kg (116 lb 3.2 oz) 02/05/2023 11:35 AM CDT Height 160 cm (5' 3 ) 05/31/2022 10:59 AM HOTEL MAINTENANCE TECHNICIAN Body Mass Index 20.58 05/31/2022 10:59 AM HOTEL MAINTENANCE TECHNICIAN Plan of Treatment Health Maintenance Due Date Last Done Comments ZOSTER VACCINE (2 of 3) 07/25/2007 05/30/2007 DTAP/TDAP/TD VACCINES (2 - T d or Tdap) 08/22/2019 08/21/2009 RSV VACCINE (60+ or ) (1 - 1-dose 75+ series) 2021 INFLUENZA VACCINE (#1) 2023 , 01/05/2020, 01/20/2019, Additional history exists PNEUMOCOCCAL VACCINE 50+ YEARS Completed 1 , 01/20/2015, 12/21/2009 OSTEOPOROSIS SCREENING Completed 11/12/2018, 2018 Medical Devices Implanted Type Area Crew Boss Device Identifier Shelf Expiration Date Model / Serial / Lot Infuse Protein Kit Lg Ii [id number] - Sna Implanted:Qty: 1 on 12/19/2021 by Biju Littlejohn MD at [facility] N/A: Spine Lumbar [employer]- SOFAMOR DANEK 03/21/2023 [id number] / NA / [id number] Description:CHECKED BY LG ON 12.20.21 REQ#[id number] Stimulan Caso4 Kt 10ml 620-010 - [id number] Implanted:Qty: 1 on 12/19/2021 by Biju Littlejohn MD at [facility] [employer]ITES 10/19/2024 620-010 / / [id number] Description:CHECKED BY LG ON 12.20.21 REQ#[id number] Spacer Catalyft Pl 7mm Xpndble Strt [id number] - [id number] Implanted:Qty: 1 on 12/19/2021 by Biju Littlejohn MD at [facility] N/A: Spine Lumbar [employer]- SOFAMOR DANEK 10/30/2029 [id number] / / [id number] Hemostatic Surgiflo 8ml W/ Thrombin 2994 - Sn/A Implanted:Qty: 1 on 12/19/2021 by Biju Littlejohn MD at [facility] Hemostatic N/A: Spine Lumbar J[employer]J- [employer] 01/19/2023 2994 / N/A / [id number] Hemostatic Surgiflo 8ml W/ Thrombin 2994 - [id number] Implanted:Qty: 1 on 12/19/2021 by Biju Littlejohn MD at [facility] Hemostatic N/A: Spine Lumbar J&J- [employer] 09/19/2022 2994 / / [id number] Cassandra Spacer [id number]-N Tas 7 Dg Lg 10mm Implanted:Qty: 1 on 12/19/2021 by Biju Littlejohn MD at [facility] Other N/A: Spine Lumbar [employer]ANEK 07/04/2024 [id number] / / [id number] Description:1X ADD Cassandra Spacer [id number] Tas 7dg Std 10mm Implanted:Qty: 1 on 12/19/2021 by Biju Littlejohn MD at [facility] Other N/A: Spine Lumbar [employer]ANEK [id number] / / [id number] Description:1X ADD Terence Cp4 Str Ti 5.5q697lx [id number] - [id number] Implanted:Qty: 1 on 12/19/2021 by Biju Littlejohn MD at [facility] Terence N/A: Spine Lumbar [employer]K [id number] / / Description:load no: 227 227 05 sterilized: [id number] Screw Cdh 7.5x35mm 5.5/6.0 Mas Cc [id number] - [id number] Implanted:Qty: 3 on 12/19/2021 by Biju Littlejohn MD at [facility] Screw N/A: Spine Lumbar [employer]K [id number] / / Description:load no: 227 227 05 sterilized: [id number] Screw Cdh 7.5x40mm 5.5/6.0 Mas Cc [id number] - [id number] Implanted:Qty: 2 on 12/19/2021 by Biju Littleojhn MD at [facility] N/A: Spine Lumbar [employer] [id number] / / Description:load no: 227 227 05 sterilized: [id number] Screw [id number] 5.5 Mas 7.5x25cc Implanted:Qty: 1 on 12/19/2021 by Biju Littlejohn MD at [facility] N/A: Spine Lumbar [employer] 11/10/2027 [id number] / / [id number] Description:1X ADD Screw [id number] Bs Cnmas 8.5x80 T/C Implanted:Qty: 2 on 12/19/2021 by Biju Littlejohn MD at [facility] N/A: Spine Lumbar [employer] 12/19/2021 [id number] / / [id number] Description:1X ADD Screw Endoskeleton 5.5x25mm Tas [id number] - [id number] Implanted:Qty: 3 on 12/19/2021 by Biju Littlejohn MD at [facility] N/A: Spine Lumbar [employer]ANEK [id number] / / Description:load [id number] da te: 12/19/21 YANCI REQ#[id number] Screw Solera 5.5/6.0 Breakoff [id number] - [id number] Implanted:Qty: 12 on 12/19/2021 by Biju Littlejohn MD at [facility] N/A: Spine Lumbar [employer] [id number] / / Description:load no: 227 227 05 sterilized: [id number] Screw Cdh 5.5x45mm 5.5/6.0 Mas Cc [id number] - [id number] Implanted:Qty: 4 on 12/19/2021 by Biju Littlejohn MD at [facility] N/A: Spine Lumbar [employer]K [id number] / / Description:load no: 227 227 05 sterilized: [id number] [place] Dbm Dbf 6ml [id number] - [id number] Implanted:Qty: 1 on 12/19/2021 by Biju Littlejohn MD at [facility] N/A: Spine Lumbar [employer]ANEK 11/10/2023 [id number] / [id number] / Description:CHECKED BY LG ON 12.20.21 REQ#[id number] [place] Dbm Dbf 6ml [id number] - [id number] Implanted:Qty: 1 on 12/19/2021 by Biju Littlejohn MD at [facility] N/A: Spine Lumbar [employer]ANEK 11/10/2023 [id number] / [id number] / Description:CHECKED BY LG ON 12.20.21 REQ#[id number] Cassandra Spacer [id number] Tas 12d Std 12mm Implanted:Qty: 1 on 12/19/2021 by Biju Littlejohn MD at [facility] N/A: Spine Lumbar [employer] [id number] / / [id number] Description:1X ADD Insurance MEDICARE PART A AND B [facility] Advance Directives For more information, please contact: [phone] Documents on File Type Date Recorded Patient Head Host/Hostess Expl anation Advance Directive Living Will 02/04/2023 10:08 AM Advance Directive POA 05/29/2022 12:52 PM Advance Directive POA 10/18/2021 10:07 AM * Full Code (Latest Code Status on File) Date Activated Date Inactivated Comments 12/19/2021 7:20 PM 12/22/2021 4:17 PM * Full Code Date Activated Date Inactivated Comments 12/19/2021 3:08 PM 12/19/2021 7:20 PM Care Teams Quality Assurance Assessor Relationship Specialty Start Date End Date Emily Tejada MD PCP - General Family Practice 01/14/20 Jade Bean Cardiovascular Disease 10/10/21
--- OUTSIDE RECORDS SUMMARY | 2024-06-29 08:16 | XMS_ITS | Encounter Summary ---
Author Organization [facility] Care Team Providers Care House Servant Name Role Phone Tara Hudson MD Primary Care Provider [phone] Gege Herrera MD Primary Care Provider Rachel Friend MULTIMEDIA COORDINATOR Primary Care Provider [phone] Emily Clements MULTIMEDIA COORDINATOR Primary Care Provider [phone] Rachel Friend MULTIMEDIA COORDINATOR Primary Care Provider [phone] Encounter Details Date Type Department Care Team (Latest Contact Info) Description 03/05/2016 Orders Only [facility] CLIN[facility] ProviderAlhaji MD [address] [place] [address] Social History Tobacco Use Types Packs/Day Years Used Date Smoking Tobacco: Never Assessed Comments Unknown Sex and Gender Information Value Date Recorded Sex Assigned at Not on file Legal Sex Female 1:32 AM GRADUATE NURSE Gender Identity Female 12/12/2018 8:34 AM CDT Sexual Orientation Straight 12/12/2018 8: 34 AM CDT documented as of this encounter Plan of Treatment Not on file documented as of this encounter Procedures Procedure Name Priority Date/Time Associated Diagnosis Comments PROCEDURE - RESULT 03/05/2016 12 :00 AM GRADUATE NURSE PROCEDURE - RESULT 03/05/2016 12 :00 AM GRADUATE NURSE documented in this encounter Results * PROCEDURE - RESULT (03/05/2016 12:00 AM GRADUATE NURSE) Narrative 03/05/2016 12:00 AM GRADUATE NURSE Ordered by an unspecified provider. Historical Provider Final Res ult * PROCEDURE - RESULT (03/05/2016 12:00 AM GRADUATE NURSE) Narrative 03/05/2016 12:00 AM GRADUATE NURSE Ordered by an unspecified provider. Historical Provider Final Res ult documented in this encounter Visit Diagnoses Not on filedocumented in this encounter Care Teams House Servant Relationship Specialty Start Date End Date Tara Hudson MD [address] [address] PCP - General 12/17/16 11/02/19 Gege Herrera MD [address] [address] PCP - General Family Medicine 11/03/19 10/16/20 Rachel Friend NP [address] [address] PCP - General Family Medicine 10/17/20 01/09/23 Emily Clements NP [address] [place] [address] PCP - General Nurse Practitioner 01/10/23 11/25/23 Rachel Friend NP [address] [place] [address] PCP - General Family Medicine 11/26/23 documented as of this encounter
--- OUTSIDE RECORDS SUMMARY | 2024-06-29 08:16 | XMS_ITS | Encounter Summary ---
Author Organization [facility] Care Team Providers Care Director Business Development Name Role Phone Tara Hudson MD Primary Care Provider [phone] Gege Herrera MD Primary Care Provider Rachel Friend LOAD DISPATCHER Primary Care Provider [phone] Emily Clements LOAD DISPATCHER Primary Care Provider [phone] Rachel Friend LOAD DISPATCHER Primary Care Provider [phone] Encounter Details Date Type Department Care Team (Latest Contact Info) Description 01/04/2016 Orders Only [facility] CLINCONV ProviderAlhaji MD [address] [place] [address] Social History Tobacco Use Types Packs/Day Years Used Date Smoking Tobacco: Never Assessed Comments Unknown Sex and Gender Information Value Date Recorded Sex Assigned at Not on file Legal Sex Female 1:32 AM HOSPICE SOCIAL WORKER Gender Identity Female 12/12/2018 8:34 AM CDT [...] AM CDT Ordered by an unspecified provider. [facility] Provider MD Final Res ult documented in this encounter Visit Diagnoses Not on filedocumented in this encounter Care Teams Director Business Development Relationship Specialty Start Date End Date Tara Hudson MD [address] [address] PCP - General 12/17/16 11/02/19 Gege Herrera MD [address] [address] PCP - General Family Medicine 11/03/19 10/16/20 Rachel Friend NP [address] [place] [address] PCP - General Family Medicine 10/17/20 01/09/23 Emily Clements NP [address] [place] [address] PCP - General Nurse Practitioner 01/10/23 11/25/23 Rachel Friend NP [address] [place] [address] PCP - General Family Medicine 11/26/23 documented as of this encounter
--- OUTSIDE RECORDS SUMMARY | 2024-06-29 08:16 | XMS_ITS | Continuity of Care Document ---
Author Organization [facility] Address [address] [place] [address] Phone Care Team Providers Care Portable Irrigation Operator Name Role Phone Jim Etienne MD Unavailable Unavailable Medications Medication Instructions Dosage Effective Dates (start - stop) Status Comments IPRATROPIUM 0.03% SPRAY 1 TID - Active IPRATROPIUM BROMIDE 21MCG SPRA 1 TID - No Longer Active Advance Directives Directive Yes / No Effective Date File Name No Information Encounters Encounter Description Practice Location Reason(s) For Visit Diagnoses Date Provider Providers Copied on Encounter MENA PRESTIGE [facility], [address], [place], [place], [id number], [place] tel:[phone] [facility] No Information [address] [place] [address], [id number] , [place]. tel: [phone] [facility], [address], [place], [place], [id number], tel:[phone] [facility] CHRONIC RHINITISNASAL & SINUS DIS NEC 9 Lowell Fernandez. [address], [id number] , [place]. tel: [phone] [facility], [address], [place], [place], [id number], [place] tel:[phone] [facility] [place] [facility] LUMBAGOLUMB/LUM BOSAC DISC DEGENPAIN IN THORACIC SPINE 5 Zoran Vinson. [address], [place], [place], [id number] . tel: [phone] Family History Family Member Type Diagnosis Age At Onset No Information Payers Payer name Insurance type Covered green party ID Authoriza tion(s) No Information Social History [...]
--- OUTSIDE RECORDS SUMMARY | 2024-06-29 08:16 | XMS_ITS | Clinical Summary ---
Author Organization [facility] [employer] Address [address] [place] [address] Care Team Providers Care Sapphire Stylus Grinder Name Role Phone Tara Hudson MD Primary Care Provider [phone] Source Comments [facility] [employer],non-owned Affiliates and Associated Physician Practices is amultiple site organization consisting of ambulatory clinics and hospital sitesin [place], [place], [place] and [place]. This disclosure is being madepursuant to the Care Everywhere program and may not contain all information available regarding this patient. Last updated 18.[facility] Allergies Active Allergy Reactions Criticality Noted Date [...] Comments Blood Pressure 128/72 05/27/2018 12:26 PM HOME HEALTH REGISTERED NURSE Pulse 80 05/27/2018 12:26 PM HOME HEALTH REGISTERED NURSE Temperature 37 C (98.6 F) 05/27/2018 12:26 PM HOME HEALTH REGISTERED NURSE Respiratory Rate 16 05/27/2018 12:26 PM HOME HEALTH REGISTERED NURSE Oxygen Saturation 100% 05/27/2018 12:26 PM HOME HEALTH REGISTERED NURSE Inhaled Oxygen Concentration - - Weight 52.2 kg (115 lb) 05/27/2018 12:26 PM HOME HEALTH REGISTERED NURSE Height 162.6 cm (5' 4 ) 05/27/2018 12:26 PM HOME HEALTH REGISTERED NURSE Body Mass Index 19.74 05/27/2018 12:26 PM HOME HEALTH REGISTERED NURSE Plan of Treatment Health Maintenance Due Date Last Done Comments BONE DENSITY TESTING 1945 MEDICARE AWV 12 MONTHS 1945 HEPATITIS C SCREENING 03/24/1963 [...] age to complete this topic Care Teams Sapphire Stylus Grinder Relationship Specialty Start Date End Date Tara Hudson MD [address] [facility] [address] [place] [address] [facility] - General 12/12/12
--- OUTSIDE RECORDS SUMMARY | 2024-06-29 08:16 | XMS_ITS | Data Portability ---
Author Organization [facility] Address [address] [place] [address] Assessment No assessment recorded. Plan of Treatment Reminders Order Date Submit Date Provider Last Modified By Organization Details Last Modified Time Details Appointments None recorde d. Lab BMP, serum or plasma 2018 [employer] [facility], [address], [address], [place], [address], 9 03:46:46 lipid panel, serum 2018 [employer] [facility], [address], [address], [place], [address], 9 03:46:45 AST/SGO T (aspart ate aminotr ansfera se), serum or plasma 2018 019 [employer] [facility], [address], [address], [place], [address], 9 03:46:46 lipid panel, serum 2017 018 [employer] [facility], [address], [address], [place], [address], 8 12:34:54 CMP, serum or plasma 2017 018 [employer] [facility], [address], [address], [place], [address], 8 12:34:55 CBC w/ auto diff 2017 [address] [facility], [address], [address], [place], [address], 8 12:34:55 TSH, serum or plasma [address] [facility], [address], [address], [place], [address], 8 12:34:56 C-react vickie protein , quantit ative, serum or plasma 2017 018 [facility]GA [facility], [address], [address], [place], [address], 8 12:34:56 BMP, serum or plasma 2016 [address] [facility], [address], [address], [place], [address], 7 06:23:16 lipid panel, serum 2016 [address] [facility], [address], [address], [place], [address], 7 06:23:16 AST/SGO T (aspart ate aminotr ansfera se), serum or plasma [address] [facility], [address], [address], [place], [address], 7 06:23:16 Referral hand surgeon referra l - Please contact patient for appt- patient gone from 9 through 12/05/19 19 2018 019 deandre Wong MD, [address] [facility] , [address], [place], [address], 9 10:59:33 hand surgeon referra bull - establi shed patient ; appt schedul ed 2017 018 TEJAL Wong MD, [address] [facility] , [address], [place], [address], 8 17:20:49 Procedures destruc tion of benign lesions (PROC) 2016 017 wandres Not available 7 15:20:01 Surgeries None recorde d. Imaging DEXA 2018 019 [email or web address], [address], [address], [place], [address], 9 09:24:08 MAMMO, screeni ng, digital , bilater al 2016 017 thoskinsma Not available 7 10:31:25 Medication Orders diclofe nac sodium 50 mg tablet, delayed release [address] [facility], [facility], [place], [address], 9 11:55:06 methoca rbamol 750 mg tablet 2018 019 [address], [address] [place], [address], 9 13:52:37 lisinop ril 10 mg tablet [address] [facility], [facility] [place], [address], 9 11:55:07 meclizi ne 25 mg tablet 2017 018 [address] [place], [address], 9 11:53:14 diclofe nac sodium 50 mg tablet, delayed release [address] [facility], [place], [address], 8 13:50:12 flutica sone propion ate 50 mcg/act uation nasal spray,s uspensi on 2017 018 INTERFACE [facility], [address] [place], [address], 8 13:58:13 lisinop ril 10 mg tablet [address] [facility], [facility], [place], [address], 8 13:50:11 diclofe nac sodium 50 mg tablet, delayed release 2016 017 INTERFACE [facility] [address], [address], [place], [address], 7 11:22:41 flutica sone propion ate 50 mcg/act uation nasal spray,s uspensi on 2016 017 [facility], [id number], [address] [place], [place], [id number], 8 12:51:05 lisinop ril 10 mg tablet 2016 017 INTERFACE [facility]), [address], [address], [place], [address], 7 11:22:40 diclofe nac sodium 50 mg tablet, delayed release 2016 017 INTERFACE [facility] ([facility]), [address], [address], [place], [address], 7 11:55:36 lisinop ril 10 mg tablet 2016 017 INTERFACE [facility] ([facility]), [address], [address], [place], [address], 7 11:55:33 Patient TargetsNo targets recorded. Patient Instructions Encounter Date Encounter Id Patient Instructions Last Modified By Organization Details Last Modified Time 05/01/2016 [id number] high blood pressure: care instructions lleelpn Not available 05/01/2016 12:06:33 learning about high blood pressure lleelpn Not available 05/01/2016 12:06:33 11/08/2016 [id number] seborrheic keratosis: care instructions ssadlowskima Not available 11/08/2016 14:47:13 learning about breast cancer screening lenglema Not available 11/08/2016 11:25:15 managing your allergies: care instructions lenglema Not available 11/08/2016 11:25:15 seasonal allergies: care instructions lenglema Not available 11/08/2016 11:25:15 10/31/2017 [id number] high blood pressure: care instructions Not available 10/31/2017 13:50:08 learning about high blood pressure Not available 10/31/2017 13:50:08 11/10/2018 [id number] back care and preventing injuries: care instructions [...] total 206 mg/dL <200 high Not Available [employer] [facility] [address] [place], [address], 02/06/2017 06:23:15 02/06/20 17 02/06/2017 lipid panel , serum HDL cholesterol 88 mg/dL >50 normal Not Available [facility] [employer] [facility] [address] [place], [address], 02/06/2017 06:23:15 02/06/20 17 02/06/2017 lipid panel , serum triglyceride s 67 mg/dL <150 normal Not Available [address], [address], 02/06/2017 06:23:15 02/06/20 17 02/06/2017 lipid panel [...] 2061- 2068 (http ://ed ucati on.Qu estDi College Tonight. com/f aq/FA Q164) Not Available [address], [address], 02/06/2017 06:23:15 02/06/20 17 02/06/2017 lipid panel , serum chol/HDLC ratio 2.3 (calc ) <5.0 normal Not Available [address], [address], 02/06/2017 06:23:15 02/06/20 17 02/06/2017 lipid panel , serum non HDL cholesterol 118 mg/dL _(radha c) <130 normal For patie nts with diabe rylee plus 1 major ASCVD risk facto r, treat ing to a non-H DL-C goal of <100 mg/dL (LDL- C of <70 mg/dL ) is consi dered a therli kayeo n. Not Available [address], [address], 02/06/2017 06:23:15 02/06/20 17 02/06/2017 AST/S GOT (aspa rtate amino trans feras e), serum or plasm a AST 19 U/L 10-35 normal Not Available [address] [address] [place], [address], 02/06/2017 06:23:16 02/06/20 17 02/06/2017 BMP, serum or plasm a glucose 94 mg/dL 65-99 normal Fasti ng refer ence inter adilene Not Available [facility] [address] [address] [place], [address], 02/06/2017 06:23:16 02/06/20 17 02/06/2017 BMP, serum or plasm a urea nitrogen (BUN) 13 mg/dL 7-25 normal Not Available [address] [address] [place], [address], 02/06/2017 06:23:16 02/06/20 17 02/06/2017 BMP, serum or plasm a creatinine 0.59 mg/dL 0.60-0 .93 low For patie nts >49 years of age, the refer ence limit for Creat inine is appro ximat marilou 13% highe r for peopl e ident ified as Afric an-Am rosmery n. Not Available [address] [address] [place], [address], 02/06/2017 06:23:16 02/06/20 17 02/06/2017 BMP, serum or plasm a eGFR non-afr. grenadian 93 mL/mi n/1.7 3m2 > or = 60 normal Not Available [address] [address] [place], [address], 02/06/2017 06:23:16 02/06/20 17 02/06/2017 BMP, serum or plasm a eGFR 108 mL/mi n/1.7 3m2 > or = 60 normal Not Available [facility], [address], 02/06/2017 06:23:16 02/06/20 17 02/06/2017 BMP, serum or plasm a BUN/creatini ne ratio 22 (calc ) 6-22 normal Not Available [address], [address], 02/06/2017 06:23:16 02/06/20 17 02/06/2017 BMP, serum or plasm a sodium 133 mmol/ L 135-14 6 low Not Available [address], [address], 02/06/2017 06:23:16 02/06/20 17 02/06/2017 BMP, serum or plasm a potassium 4.6 mmol/ L 3.5-5. 3 normal Not Available [address], [address], 02/06/2017 06:23:16 02/06/2002/06/2017 BMP, serum or plasm a chloride 97 mmol/ L 98-110 low Not Available [address], [address], 02/06/2017 06:23:16 02/06/20 17 02/06/2017 BMP, serum or plasm a carbon dioxide 29 mmol/ L 20-31 normal Not Available [address], [address], 02/06/2017 06:23:16 02/06/2002/06/2017 BMP, serum or plasm a calcium 9.7 mg/dL 8.6-10 .4 normal Not Available [address], [address], 02/06/2017 06:23:16 02/11/20 18 02/11/2018 lipid panel , serum cholesterol, total 209 mg/dL <200 high Not Available [address], [address], 02/11/2018 12:34:54 02/11/20 18 02/11/2018 lipid panel , serum HDL cholesterol 87 mg/dL >50 normal Not Available [facility] [employer] [address], [address], 02/11/2018 12:34:54 02/11/20 18 02/11/2018 lipid panel , serum triglyceride s 105 mg/dL <150 normal Not Available [address], [address], 02/11/2018 12:34:54 02/11/20 18 02/11/2018 lipid panel [...] 2061- 2068 (http ://ed ucati on.Qu [employer] Tonight. com/f aq/FA Q164) Not Available [address], [address], 02/11/2018 12:34:54 02/11/20 18 02/11/2018 lipid panel , serum chol/HDLC ratio 2.4 (calc ) <5.0 normal Not Available [address], [address], 02/11/2018 12:34:54 02/11/20 18 02/11/2018 lipid panel , serum non HDL cholesterol 122 mg/dL _(radha c) <130 normal For patie nts with diabe rylee plus 1 major ASCVD risk facto r, treat ing to a non-H DL-C goal of <100 mg/dL (LDL- C of <70 mg/dL ) is conschristine kayeo n. Not Available [address] [address] [place], [address], 02/11/2018 12:34:54 02/11/20 18 02/11/2018 CMP, serum or plasm a glucose 90 mg/dL 65-139 normal Non-f astin g refer ence inter adilene Not Available [address] [address] [place], [address], 02/11/2018 12:34:55 02/11/2002/11/2018 CMP, serum or plasm a urea nitrogen (BUN) 17 mg/dL 7-25 normal Not Available [address] [address] [place], [address], 02/11/2018 12:34:55 02/11/2002/11/2018 CMP, serum or plasm a creatinine 0.60 mg/dL 0.60-0 .93 normal For patie nts >49 years of age, the refer ence limit for Creat inine is appro ximat marilou 13% highe r for peopl e ident ified as Afric an-Am rosmery n. Not Available [address] [address] [place], [address], 02/11/2018 12:34:55 02/11/2002/11/2018 CMP, serum or plasm a eGFR non-afr. grenadian 92 mL/mi n/1.7 3m2 > or = 60 normal Not Available [facility] [address] [address] [place], [address], 02/11/2018 12:34:55 02/11/20 18 02/11/2018 CMP, serum or plasm a eGFR 106 mL/mi n/1.7 3m2 > or = 60 normal Not Available [facility] [address] [address] [place], [address], 02/11/2018 12:34:55 02/11/20 18 02/11/2018 CMP, serum or plasm a BUN/creatini ne ratio NOT APPLIC ABLE (calc ) 6-22 Not Available [address], [address], 02/11/2018 12:34:55 02/11/20 18 02/11/2018 CMP, serum or plasm a sodium 133 mmol/ L 135-14 6 low Not Available [address], [address], 02/11/2018 12:34:55 02/11/20 18 02/11/2018 CMP, serum or plasm a potassium 4.7 mmol/ L 3.5-5. 3 normal Not Available [address], [address], 02/11/2018 12:34:55 02/11/2002/11/2018 CMP, serum or plasm a chloride 95 mmol/ L 98-110 low Not Available [address], [address], 02/11/2018 12:34:55 02/11/20 18 02/11/2018 CMP, serum or plasm a carbon dioxide 27 mmol/ L 20-32 normal Not Available [address], [address], 02/11/2018 12:34:55 02/11/20 18 02/11/2018 CMP, serum or plasm a calcium 9.8 mg/dL 8.6-10 .4 normal Not Available [facility] [address], [address], 02/11/2018 12:34:55 02/11/20 18 02/11/2018 CMP, serum or plasm a protein, total 7.2 g/dL 6.1-8. 1 normal Not Available [facility] [address], [address], 02/11/2018 12:34:55 02/11/20 18 02/11/2018 CMP, serum or plasm a albumin 4.6 g/dL 3.6-5. 1 normal Not Available [address], [address], 02/11/2018 12:34:55 02/11/20 18 02/11/2018 CMP, serum or plasm a globulin 2.6 g/dL_ (calc ) 1.9-3. 7 normal Not Available [address], [address], 02/11/2018 12:34:55 02/11/20 18 02/11/2018 CMP, serum or plasm a albumin/glob ulin ratio 1.8 (calc ) 1.0-2. 5 normal Not Available [address], [address], 02/11/2018 12:34:55 02/11/20 18 02/11/2018 CMP, serum or plasm a bilirubin, total 0.7 mg/dL 0.2-1. 2 normal Not Available [address], [address], 02/11/2018 12:34:55 02/11/20 18 02/11/2018 CMP, serum or plasm a alkaline phosphatase 64 U/L 33-130 normal Not Available [facility] [employer] [address], [address], 02/11/2018 12:34:55 02/11/20 18 02/11/2018 CMP, serum or plasm a AST 27 U/L 10-35 normal Not Available [address], [address], 02/11/2018 12:34:55 02/11/20 18 02/11/2018 CMP, serum or plasm a ALT 20 U/L 6-29 normal Not Available [address], [address], 02/11/2018 12:34:55 02/11/20 18 02/11/2018 CBC w/ auto diff white blood cell count 6.0 thous and/u L 3.8-10 .8 normal Not Available [address], [address], 02/11/2018 12:34:55 02/11/20 18 02/11/2018 CBC w/ auto diff red blood cell count 4.45 pollo on/uL 3.80-5 .10 normal Not Available [address], [address], 02/11/2018 12:34:55 02/11/20 18 02/11/2018 CBC w/ auto diff hemoglobin 14.3 g/dL 11.7-1 5.5 normal Not Available [address], [address], 02/11/2018 12:34:55 02/11/20 18 02/11/2018 CBC w/ auto diff hematocrit 42.2 % 35.0-4 5.0 normal Not Available [address], [address], 02/11/2018 12:34:55 02/11/20 18 02/11/2018 CBC w/ auto diff MCV 94.8 fL 80.0-1 00.0 normal Not Available [address], [address], 02/11/2018 12:34:55 02/11/20 18 02/11/2018 CBC w/ auto diff MCH 32.1 pg 27.0-3 3.0 normal Not Available [address], [address], 02/11/2018 12:34:55 02/11/20 18 02/11/2018 CBC w/ auto diff MCHC 33.9 g/dL 32.0-3 6.0 normal Not Available [address], [place], [address], 02/11/2018 12:34:55 02/11/20 18 02/11/2018 CBC w/ auto diff RDW 11.7 % 11.0-1 5.0 normal Not Available [address], [address], 02/11/2018 12:34:55 02/11/20 18 02/11/2018 CBC w/ auto diff platelet count 301 thous and/u L 140-40 0 normal Not Available [address], [address], 02/11/2018 12:34:55 02/11/2002/11/2018 CBC w/ auto diff MPV 9.9 fL 7.5-12 .5 normal Not Available [address], [address], 02/11/2018 12:34:55 02/11/20 18 02/11/2018 CBC w/ auto diff absolute neutrophils 3660 cells /uL 1500-7 800 normal Not Available [address], [address], 02/11/2018 12:34:55 02/11/2002/11/2018 CBC w/ auto diff absolute lymphocytes 1422 cells /uL 850-39 00 normal Not Available [address], [address], 02/11/2018 12:34:55 02/11/2002/11/2018 CBC w/ auto diff absolute monocytes 528 cells /uL 200-95 0 normal Not Available [address], [address], 02/11/2018 12:34:55 02/11/20 18 02/11/2018 CBC w/ auto diff absolute eosinophils 330 cells /uL 15-500 normal Not Available [address], [address], 02/11/2018 12:34:55 02/11/20 18 02/11/2018 CBC w/ auto diff absolute basophils 60 cells /uL 0-200 normal Not Available [address], [address], 02/11/2018 12:34:55 02/11/20 18 02/11/2018 CBC w/ auto diff neutrophils 61 % normal Not Available [address], [address], 02/11/2018 12:34:55 02/11/20 18 02/11/2018 CBC w/ auto diff lymphocytes 23.7 % normal Not Available [address], [address], 02/11/2018 12:34:55 02/11/2002/11/2018 CBC w/ auto diff monocytes 8.8 % normal Not Available [address], [address], 02/11/2018 12:34:55 02/11/2002/11/2018 CBC w/ auto diff eosinophils 5.5 % normal Not Available [address], [address], 02/11/2018 12:34:55 02/11/20 18 02/11/2018 CBC w/ auto diff basophils 1.0 % normal Not Available [address], [address], 02/11/2018 12:34:55 02/11/2002/11/2018 C-amadeo ctive prote in, quant itati ve, serum or plasm a C-reactive protein 0.7 mg/L <8.0 normal Not Available [address], [address], 02/11/2018 12:34:56 02/11/2002/11/2018 TSH, serum or plasm a TSH 3.66 mIU/L 0.40-4 .50 normal Not Available [address] [address] [place], [address], 02/11/2018 12:34:56 02/12/2002/12/2019 lipid panel , serum cholesterol, total 222 mg/dL <200 high Not Available [address], [address], 02/12/2019 03:46:45 02/12/2002/12/2019 lipid panel , serum HDL cholesterol 83 mg/dL >50 normal Not Available [facility] [employer] [address] [address] [place], [address], 02/12/2019 03:46:45 02/12/2002/12/2019 lipid panel , serum triglyceride s 94 mg/dL <150 normal Not Available [address], [address], 02/12/2019 03:46:45 02/12/2002/12/2019 lipid panel , serum [...] chan tics. com/f aq/FA Q164) Not Available [facility] [address] [address] [place], [address], 02/12/2019 03:46:45 02/12/2002/12/2019 lipid panel , serum chol/HDLC ratio 2.7 (calc ) <5.0 normal Not Available [address], [address], 02/12/2019 03:46:45 02/12/2002/12/2019 lipid panel , serum non HDL cholesterol 139 mg/dL _(radha c) <130 high For patie nts with diabe rylee plus 1 major ASCVD risk facto r, treat ing to a non-H DL-C goal of <100 mg/dL (LDL- C of <70 mg/dL ) is consi dered a thera peuti c optio n. Not Available [address], [address], 02/12/2019 03:46:45 02/12/2002/12/2019 AST/S GOT (aspa rtate amino trans feras e), serum or plasm a AST 17 U/L 10-35 normal Not Available [address], [address], 02/12/2019 03:46:45 02/12/2002/12/2019 BMP, serum or plasm a glucose 84 mg/dL 65-99 normal Fasti ng refer ence inter adilene Not Available [address], [address], 02/12/2019 03:46:46 02/12/2002/12/2019 BMP, serum or plasm a urea nitrogen (BUN) 14 mg/dL 7-25 normal Not Available [address], [address], 02/12/2019 03:46:46 02/12/2002/12/2019 BMP, serum or plasm a creatinine 0.59 mg/dL 0.60-0 .93 low For patie nts >49 years of age, the refer ence limit for Creat inine is appro ximat marilou 13% highe r for peopl e ident ified as Afric an-Am rosmery n. Not Available [facility] [address] [place], [address], 02/12/2019 03:46:46 02/12/2002/12/2019 BMP, serum or plasm a eGFR non-afr. grenadian 92 mL/mi n/1.7 3m2 > or = 60 normal Not Available [address] [address] [place], [address], 02/12/2019 03:46:46 02/12/2002/12/2019 BMP, serum or plasm a eGFR 106 mL/mi n/1.7 3m2 > or = 60 normal Not Available [address], [address], 02/12/2019 03:46:46 02/12/2002/12/2019 BMP, serum or plasm a BUN/creatini ne ratio 24 (calc ) 6-22 high Not Available [address], [address], 02/12/2019 03:46:46 02/12/2002/12/2019 BMP, serum or plasm a sodium 136 mmol/ L 135-14 6 normal Not Available [address], [address], 02/12/2019 03:46:46 02/12/2002/12/2019 BMP, serum or plasm a potassium 4.6 mmol/ L 3.5-5. 3 normal Not Available [address], [address], 02/12/2019 03:46:46 02/12/2002/12/2019 BMP, serum or plasm a chloride 99 mmol/ L 98-110 normal Not Available [address], [address], 02/12/2019 03:46:46 02/12/2002/12/2019 BMP, serum or plasm a carbon dioxide 29 mmol/ L 20-32 normal Not Available [facility] [address] [place], [address], 02/12/2019 03:46:46 02/12/20 19 02/12/2019 BMP, serum or plasm a calcium 9.4 mg/dL 8.6-10 .4 normal Not Available [facility] [address] [address], [place], [address], 02/12/2019 03:46:46 05/28/19 17 05/28/2016 XR, lumba r spine No observ ation record ed. [email or web address] Not Available 2016 22:17:17 02/01/20 17 01/31/2017 MAMMO , phillipe katerina, digit al, bilat eral No observ ation record ed. [facility] (Imaging) [address] [facility] [address], [place], [address], 02/04/2017 17:27:11 02/06/20 17 01/31/2017 MAMMO , reggie costag, digit al, bilat eral, w/ CAD No observ ation record ed. [facility] Not Available 2016 21:20:18 02/11/20 18 02/10/2018 MAMMO , scree katerina, bilat eral No observ ation record ed. [address] (Imaging) [address] [facility] [address], [place], [address], 02/10/2018 19:00:20 11/29/19 19 11/21/2018 DEXA No observ ation record ed. [email or web address] n [facility] [address], [place], [address], 11/28/2018 16:57:21 12/20/1912/19/2018 XR, elbow , 3 or more view No observ ation record ed. [address] [facility] , [place], [address], 12/22/2018 18:22:19 01/17/2001/1601/16/2019 XR, elbow No observ ation record ed. [email or web address] [address] [place], [address], 01/16/2019 18:15:40 02/17/20 19 02/16/2019 MAMMO , scree katerina, bilat eral No observ ation record ed. [facility] ([facility] [address], [place], [address], 02/16/2019 16:08:46 02/28/20 19 02/27/2019 XR, elbow , 3 or more view No observ ation record ed. [email or web address] [address] [place], [address], 02/27/2019 16:21:58 Result Notes None recorded. Problems Name Problem SNOMED Code Status Onset Date Resolution Date Notes Provider Name and Address Organization Details Recorded Time Disorder of bone and articula r cartilag e 760242876 Completed 201205/03/2012 Location : None;Sev erity: Moderate ;Progres s: Stable;A dded By: Tara Hudson;Add to Current Problems : NO Not Available [facility] 7 10:01:45 Malaise and fatigue 670301563 Active 2012 Location : None;Sev erity: Moderate ;Progres s: Stable;A dded By: Dinora Toth;Add to Current Problems : NO Not Available [facility] 7 10:01:45 Senile hyperker atosis 818653337 Completed 201308/30/2013 Location : None;Sev erity: Moderate ;Progres s: Stable;A dded By: Carrie Hammonds;Add to Current Problems : NO Not Available [facility] 7 10:01:45 Chronic pain 06928951 Active 2012 Location : None;Sev erity: Moderate ;Progres s: Stable;A dded By: Lizz yMarck;Marcus d to Current Problems : YES Not Available [facility] 7 10:01:45 Pain in limb 82475588 Active 2014 Location : None;Sev erity: Moderate ;Progres s: Stable;A dded By: Christina Hdez; Add to Current Problems : YES Not Available [facility] 7 10:01:45 Screenin g for malignan t neoplasm of colon Active 2012 Location : None;Sev erity: Moderate ;Progres s: Stable;A dded By: Tara Hudson;Add to Current Problems : NO Not Available [facility] 7 10:01:45 Hearing loss 22740251 Active 2013 Location : None;Sev erity: Moderate ;Progres s: Stable;A dded By: Tara Hudson;Add to Current Problems : NO Not Available [facility] 7 10:01:45 Female genital organ symptoms 422742634 Completed 201408/24/2014 Location : None;Sev erity: Moderate ;Progres s: Stable;A dded By: Tara Hudson;Add to Current Problems : YES Not Available [facility] 7 10:01:45 Lumbosac ral spondylo sis without myelopat hy 82940853 Active 2012 Location : None;Sev erity: Moderate ;Progres s: Stable;A dded By: Tara Husdon;Add to Current Problems : YES Not Available [facility] 7 10:01:45 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 Active 2014 Location : None;Sev erity: Moderate ;Progres s: Stable;A dded By: Tara Hudson;Add to Current Problems : NO Not Available [facility] 7 10:01:45 Ganglion of joint 18801570 Completed 201312/26/2013 Location : None;Sev erity: Moderate ;Progres s: Stable;A dded By: Tabatha Rivera i;A dd to Current Problems : NO Not Available [facility] 7 10:01:45 Enthesop athy of wrist AND/OR carpus 48202334 Completed 201312/26/2013 Location : None;Sev erity: Moderate ;Progres s: Stable;A dded By: Tabatha Rivera i;Li dd to Current Problems : NO Not Available [facility] 7 10:01:45 Migraine without aura 79106780 Active 2012 Location : None;Sev erity: Moderate ;Progres s: Stable;A dded By: Tabatha Rivera i;Li dd to Current Problems : YES Not Available [facility] 7 10:01:46 Low back pain 188268841 Active 2014 Location : None;Sev erity: Moderate ;Progres s: Stable;A dded By: Tabatha Rivera i;Li dd to Current Problems : YES Not Available [facility] 7 10:01:46 Dyspnea 353408739 Completed 201308/30/2013 Location : None;Sev erity: Moderate ;Progres s: Stable;A dded By: Monica Hussein;Ad d to Current Problems : NO Not Available [facility] 7 10:01:46 Screenin g for osteopor osis Active 2015 Location : None;Sev erity: Moderate ;Progres s: Stable;A dded By: Sosa Rahman;Add to Current Problems : YES Not Available [facility] 7 10:01:46 Disorder of bone and articula r cartilag e 495196312 Active 2015 Location : None;Sev erity: Moderate ;Progres s: Stable;A dded By: Sosa Rahman;Add to Current Problems : NO Not Available [facility] 7 10:01:46 Benign essentia l hyperten kwadwo 4463504 Active 2014 Location : None;Sev erity: Moderate ;Progres s: Stable;A dded By: Mary Anne Cuadra;Add to Current Problems : YES Not Available [facility] 7 10:01:46 Spontane ous ecchymos is 705882453 Active 2015 Location : None;Sev erity: Moderate ;Progres s: Stable;A dded By: Mary Anne Cuadra;Add to Current Problems : YES Not Available [facility] 7 10:01:46 Problem Notes None recorded. Procedures Surgical History Date Name Laterality Status Provider Name and Address Organization Details Recorded Time 11/11/19 19 AIMS completed Alexa Etienne [place] - [facility] 11/10/2018 11:01:06 11/11/19 19 SLUMS EXAM completed [place] Et[place] [facility] 11/10/2018 11:01:06 11/09/19 17 Generic Procedure completed Tara Hudson [place] [facility] 11/08/2016 14:22:38 Back Surgery completed [facility] 05/01/2016 14:36:09 Eye Surgery completed [facility] 05/01/2016 14:36:27 Breast Surgery completed [facility] 11/05/2016 17:44:53 Dilation and Curettage completed [facility] 05/01/2016 14:36:38 Imaging Results Imaging Date Name Status LastModified by Organiz ation Details LastModified Time 05/28/2016 XR, lumbar spine completed magn Information not available 05/28/2016 22:17:17 01/31/2017 MAMMO, screening, digital, bilateral completed [facility] (Imaging) [address] [facility] [address] [place] [address], [address], 02/04/2017 17:27:11 01/31/2017 MAMMO, screening, digital, bilateral, w/ CAD completed [facility] Information not available 02/05/2017 21:20:18 02/10/2018 MAMMO, screening, bilateral completed [address] (Imaging) [address] [facility] [address], [place], [address], 02/10/2018 19:00:20 11/21/2018 DEXA completed [facility] [address] [facility] [address], [place], [address], 11/28/2018 16:57:21 12/19/2018 XR, elbow, 3 or more view completed [address] [place], [address], 12/22/2018 18:22:19 01/16/2019 XR, elbow completed [email or web address] [address] [place], [address], 01/16/2019 18:15:40 02/16/2019 MAMMO, screening, bilateral completed [facility] (Imaging) [address], [place], [address], 02/16/2019 16:08:46 02/27/2019 XR, elbow, 3 or more view completed [email or web address] [place] [address] [place], [address], 02/27/2019 16:21:58 Procedure Notes None recorded. Medical Equipment None Reported. Allergies Allergen ID Allergen Name Allergen Category Reaction Reaction Severity Criticality Documentation Date Start Date Code Code System Note Provider Name and Address Organization Details Recorded Time 11221 erythromy jet medicatio n nausea moderate Not available 04/25/20162012 4053 RxNorm React ion: nause a;Sev erity : Moder ate; Comme nt: Aller gy Type: Adver se React ion; Not Available Not Available Not Available 06068 Biaxin medicatio n nausea moderate Not available 04/25/2016201272 9 RxNorm React ion: nause a;Sev erity : Moder ate; Comme nt: Aller gy Type: Adver se React ion; Not Available Not Available Not Available 14966 bisoprolo l / hydrochlo rothiazid e medicatio n Not available Not available Not available 04/25/2016201231 7 RxNorm Sever ity: Moder ate; Comme nt: DYSPH AGIA; Aller gy Type: Adver se React ion; Not Available Not Available Not Available 73616 Medrol medicatio n Not available Not available Not available 04/25/2016201270 2 RxNorm Sever ity: Moder ate; Comme nt: Aller gy Type: Adver se React ion; Not Available Not Available Not Available 86448 codeine phosphate medicatio n Not available Not available Not available 04/25/20162012 2672 RxNorm Sever ity: Moder ate; Comme nt: Aller gy Type: Adver se React ion; Not Available Not Available Not Available 03693 gabapenti n medicatio n Not available Not available Not available 05/01/2016 97822 RxNorm hair loss Not Available Not Available [...] 6 hr prn 12/11 completed RxNorm : 237159 ;Allow Substi tution : True Not Available Not Available Not Available prednisone 20 mg tablet 3 po q day for 3 days then 2 po q day for 3 days then 1 po q day for 4 days 03/21 completed RxNorm : 419205 ;Allow Substi tution : True Not Available Not Available Not Available Voltaren 75 mg tablet,del ayed release Take 1 tablet(s) by mouth bid 12/11 completed RxNorm : 332833 ;Allow Substi tution : True Not Available Not Available Not Available oxycodone- acetaminop hen 5 mg-325 mg tablet 11/10 completed Not Available Not Available Not Available Denavir 1 % topical cream Apply sufficien t amount to affected area q2h for 4 days while awake 04/27 completed RxNorm : 291415 ;Allow Substi tution : True Not Available [...] prn for migraine 11/14 completed RxNorm : 176511 ;Allow Substi tution : True Not Available Not Available Not Available fluticason e propionate 50 mcg/actuat ion nasal spray,susp ension USE 2 SPRAYS INTO EACH NOSTRIL EVERY DAY 2019 active Not Available Not Available Not Avai lable Tylenol Extra Strength 500 mg tablet Take 2 tabs (1000mg) daily 10/03 completed RxNorm : 421229 ;Allow Substi tution : True Not Available Not Available Not Available Restasis 0.05 % eye drops in a dropperett e Instill 1 drop(s) to each eye bid 10/31 completed RxNorm : 774183 ;Allow Substi tution : True Not Available [...] Not Available Vitals Date Recorded Body height Body mass index (BMI) Body weight Body temperature Oxygen saturation Oxygen saturation in Arterial blood by Pulse oximetry Heart rate Systolic blood pressure Diastolic blood pressure Provider Name and Address Organization Details Last Updated DateTime 8 165.1 cm 19.5 kg/m2 26572.6 6 g 97.1 [degF] 98 % 98 % 52 /min 110 mm[Hg] 80 mm[Hg] Tabatha Gallegos [place] - [facility] 8 12:50:07 Date Recorded Body height Body mass index (BMI) Body weight Body temperature Oxygen saturation Oxygen saturation in Arterial blood by Pulse oximetry Heart rate Systolic blood pressure Diastolic blood pressure Provider Name and Address Organization Details Last Updated DateTime 9 165.1 cm 19.3 kg/m2 40710.7 1 g 97 [degF] 99 % 99 % 66 /min 117 mm[Hg] 82 mm[Hg] Alexa Etienne [place] [facility] 9 11:11:23 Date Recorded Body height Body weight Body mass index (BMI) Body temperature Oxygen saturation Oxygen saturation in Arterial blood by Pulse oximetry Heart rate Systolic blood pressure Diastolic blood pressure Provider Name and Address Organization Details Last Updated DateTime 7 165.1 cm 47512.7 3 g 20.2 kg/m2 97.7 [degF] 98 % 98 % 70 /min 112 mm[Hg] 74 mm[Hg] Tabatha Gallegos ma [facility] 7 11:19:38 Date Recorded Body height Body mass index (BMI) Body weight Body temperature Oxygen saturation Oxygen saturation in Arterial blood by Pulse oximetry Heart rate Systolic blood pressure Diastolic blood pressure Provider Name and Address Organization Details Last Updated DateTime 165.1 cm 19.7 kg/m2 92099.6 g 97.2 [degF] 98 % 98 % 70 /min 112 mm[Hg] 80 mm[Hg] Tabatha Gallegos ma [facility] 7 10:10:07 Social History Question Answer Notes LastModified by Organizat ion Details LastModified Time Tobacco Smoking Status Never Smoker Tabatha Rainey [facility], [facility] 05/01/2016 09:47:08 What Was The Date Of [...] available 11/05/2016 17:45:23 Medical History Condition Response Muscle, Joint, or Bone Problems Y High Blood Pressure Y Headaches Y Gynecological HistoryNo gynecological history recorded. Obstetrics History GPAL:G 0 P 0 0 0 0 Immunizations Vaccine Type Date Status Note Provider Nam e and Address Organization Details Recorded Time Influenza, split virus, quadrivalent, preservative 9 completed Sugar Lopez null, [place] [facility] 02/10/2019 08:49:55 Influenza, high-dose, trivalent, PF 6 completed Tressa Avina [place] [facility] 02/06/2016 10:06:33 Pneumococcal conjugate PCV 13 5 completed Not Available [facility] 04/25/2016 05:39:04 Influenza, split virus, trivalent, preservative 5 completed Not Available [facility] 04/25/2016 05:39:04 Tdap 0 completed Not Available [facility] 04/25/2016 05:39:04 zoster live 8 completed Not Available [facility] 04/25/2016 05:39:04 Influenza, split virus, trivalent, preservative 3 completed Not Available [facility] 04/25/2016 05:39:04 pneumococcal polysaccharide PPV23 0 completed Not Available [facility] 04/25/2016 05:39:05 Influenza, split virus, trivalent, preservative 2 completed Not Available [facility] 04/25/2016 05:39:05 Influenza, high-dose, trivalent, PF 7 completed M[place] [facility] 02/14/2017 12:54:13 pneumococcal polysaccharide PPV23 7 completed M[place] [facility] 02/14/2017 12:55:08 Influenza, high-dose, trivalent, PF 8 completed Suri Pearce MD Attn: Accounting[address] [place], [address], [place] [facility] 01/31/2018 18:02:58 Past Encounters Encounter ID Performer Location Encounter Start Date Encounter Closed Date Diagnosis/Indication Diagnosis SNOMED-CT Code Diagnosis ICD10 Code Diagnosis Note [id number] [facility] [address] [place] [address] [place], [place] [address] 05/01/2016 10:56:51 05/02/2016 16:39:27 Benign essential hypertension 1077476 I10 Osteoarthr itis of wrist 735438395 M19.031 M19.187 [id number] [facility] [address] [place] [facility] [place] [address] 11/08/2016 09:54:23 11/08/2016 14:33:05 Osteoarthritis of wrist 116517701 M19.031 M19.032 Benign ess ential hypertension 3784253 I10 Allergic r hinitis caused by pollen 91078441 J30.1 Screening for malignant neoplasm of breast 100457664 Z12.39 Senile hyperkeratosis 39 7497192 L82.1 [id number] [facility] [address] [place] [address] 10/31/2017 12:18:48 11/01/2017 12:56:39 Benign essential hypertension 7700374 I10 Fatigue 61387797 R53.83 Osteoarthr itis of wrist 835819614 M19.031 M19.032 Allergic r hinitis caused by pollen 75815663 J30.1 Vertigo 065405393 R42 Pain of left hand 715853 7398 34044 M79.642 and ganglions of right hand [id number] [facility] [address] [place] [address] [facility] [place] [facility] [place] [place] [address] 11/10/2018 10:37:45 11/10/2018 12:16:24 Adult health examination 171213497 Z00.00 Benign ess ential hypertension 2464464 I10 Osteoarthr itis of wrist 157370189 M19.031 M19.032 Low back pain 838878753 M54.5 Ganglion of wrist 937062 009 M67.431 Osteopenia 103245955 M85 .9 Health Concerns Section Related Observation LastModified by Organization Detai ls LastModified Time None Recorded Concern Status LastModified by Organization Details LastModified Time None Recorded Advance Directives Directive None Recorded Payers Encounter Date Sequence Insurance Name Policy Number Policy Jacques Covered Member ID Jacques Member ID Guarantor Name 05/01/2016 1 [place] Katinasuri Vinson [id number] Katina Vinson 05/01/2016 2 [employer] - [employer] (MEDICARE SUPPLEMENT) PLAN F Katina Vinson [id number] Katina Vinson 11/08/2016 1 [place] Katina Vinson [id number] Katina Vinson 11/08/2016 2 [employer] - [employer] (MEDICARE SUPPLEMENT) PLAN F Katina Vinson [id number] Katina Vinson 10/31/2017 1 [place] Katina Vinson [id number] Katina Vinson 10/31/2017 2 [employer] - [employer] (MEDICARE SUPPLEMENT) PLAN F Katina Vinson [id number] Katina Vinson 11/10/2018 2 [employer] - [employer] (MEDICARE SUPPLEMENT) PLAN F Katina Vinson [id number] Katina Vinson 11/10/2018 1 [place] Katina Vinson [id number] Katina Vinson Notes Date Note Type Note [...] months Context:no new detergents or skin products DEV[place] Sotelo 05/01/2016 11:55:36 11/08/2016 text/html DysphagiaReporte d bypatient.Location:thr [...] Aggravating Factors:clothing (bra line) Associated Symptoms:no fever [place] Sotelo 11/08/2016 14:28:43 10/31/2017 text/html Hypertension F/UReported bypatient.Associated [...] it worse Associated Symptoms:no fever [place] Sotelo - [facility] 10/31/2017 14:02:59 11/10/2018 text/html Medicare Annual Wellness [...] assistance Falls Risk Assessment:dizziness/v ertigo DEVIN Sotelo - [facility] 11/10/2018 12:07:18 OBGyn Episode No OBEpisode recorded.
--- OUTSIDE RECORDS SUMMARY | 2024-06-29 08:16 | XMS_ITS | Encounter Summary ---
Author Organization [facility] Facility Care Team Providers Care Diesel Maintenance Technician Name Role Phone Tara Hudson MD Primary Care Provider [phone] Gege Herrera MD Primary Care Provider Rachel Friend SYSTEM ADMINISTRATION MANAGER Primary Care Provider [phone] Emily Clements SYSTEM ADMINISTRATION MANAGER Primary Care Provider [phone] Rachel Friend SYSTEM ADMINISTRATION MANAGER Primary Care Provider [phone] Encounter Details Date Type Department Care Team (Latest Contact Info) Description 02/22/2016 Orders Only [facility]IN[facility] ProviderAlhaji MD [address] [place] [address] Social History Tobacco Use Types Packs/Day Years Used Date Smoking Tobacco: Never Assessed Comments Unknown Sex and Gender Information Value Date Recorded Sex Assigned at Not on file Legal Sex Female 1:32 AM 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 [facility] Provider MD Final Res ult documented in this encounter Visit Diagnoses Not on filedocumented in this encounter Care Teams Diesel Maintenance Technician Relationship Specialty Start Date End Date Tara Hudson MD [address] [address] PCP - General 12/17/16 11/02/19 Gege Herrera MD [address] [address] PCP - General Family Medicine 11/03/19 10/16/20 Rachel Friend NP [address] [place] [address] PCP - General Family Medicine 10/17/20 01/09/23 Emily Clements NP [address] [place] [address] PCP - General Nurse Practitioner 01/10/23 11/25/23 Rachel Friend NP [address] [place] [address] PCP - General Family Medicine 11/26/23 documented as of this encounter
--- OUTSIDE RECORDS SUMMARY | 2024-06-29 08:16 | XMS_ITS | Clinical Summary ---
Author Organization [facility] Address [address] [place] [address] Care Team Providers Care Vision Rehabilitation Therapist Name Role Phone Rachel Friend NP Primary Care Provider [phone] Allergies Active Allergy Reactions Criticality Noted Date [...] times a day as needed 03/25/2024 Active dilTIAZem CD/XR/XT (CARDIZEM CD,DILACOR XR) 120 mg 24 hr capsuleIndicati ons:SVT (supraventricul ar tachycardia) Take 1 capsule (120 mg total) by mouth daily 30 capsule 11 06/17/2024 Active Active Problems Problem Noted Date Diagnosed Date SVT (supraventricular tachycardia) 04/18/2023 Atypical chest pain 04/18/2023 Closed fracture of mandible 01/04/2023 Fall, initial encounter 12/03/2022 Open fracture of mandible 12/03/2022 Status post placement of implantable loop record er 07/17/2022 Overview (07/17/2022): Medtronic LNQ22 Loop Recorder. Dx; Syncope, Tachycardia, Palpitations. DOI 06/15/2022-Fleissner. Mirza. [facility] remote monitoring. Visit for wound check 06/22/2022 [...] Encounters Date Type Department Care Team Description 06/24/2024 10:30 AM UX INTERACTION DESIGNER Ancillary Procedure [facility] Cardiology [address] [place] [address] [place] [phone] Status post placement of implantable loop recorder (Primary Dx); Syncope and collapse; SVT (supraventricular tachycardia); Palpitations 06/24/2024 Telephone [facility] Cardiology [address] [place] [address] Todd Cedeno MD 06/17/2024 10:00 AM UX INTERACTION DESIGNER Office Visit [facility] Cardiology at [address] [place] [address] Todd Cedeno MD SVT (supraventricular tachycardia) (Primary Dx); Benign essential hypertension; Syncope and collapse; Atypical chest pain 06/15/2024 7:30 AM UX INTERACTION DESIGNER Ancillary Procedure [facility] Cardiology [address] [place] [address] Suite [facility] [place] [address] Status post placement of implantable loop recorder (Primary Dx); Syncope and collapse; SVT (supraventricular tachycardia); Palpitations 05/06/2024 9:45 AM UX INTERACTION DESIGNER Office Visit [facility] Orthopedics and Sports Medicine [facility] [address] [address] Dallas Caruso MD Primary osteoarthritis of right knee; Trochanteric bursitis of left hip 05/04/2024 7:00 AM UX INTERACTION DESIGNER Ancillary Procedure [facility] Cardiology [address] [place], [place] [address] [place] [address] Status post placement of implantable loop recorder (Primary Dx); Syncope and collapse; SVT (supraventricular tachycardia); Palpitations from Last 3 Months Surgical History Surgery Date Site/Laterality Comments HAND SURGERY POSTERIOR FUSION LUMBAR SPINE 02/22/2016 Dr. Alanis BREAST SURGERY 2012 removal of implants CATARACT EXTRACTION 04/22/2012 - 04/21/2013 SPINE SURGERY 2016 laminectomy wit h instrumentation laminectomy with instrumentation OTHER SURGICAL HISTORY 05/23/2022 [...] rhinitis Cataracts, bilateral Anxiety Arthritis Mandible fracture (HCC) Ankle fracture Syncope Cardiac complication 11/2021 hypotension and tachycardia post op lumbar surgery 11/2021, estimated blood loss 1 L History of blood transfusion 2021 aft er lumbar surgery Dental disease Headache Abnormal ECG Motion sickness Family History Medical History Relation Name Comments Alcohol abuse Father Carlos Rees () Depression Father Carlos Rees () Suidcide Father Carlos Rees () 50 y.o. Heart disease Maternal Grandmother Aura Hogue (decea sed) Hypertension Maternal Grandmother Aura Hogue (deceas ed) Stroke Maternal Grandmother Aura Hogue (deceas ed) Hearing loss Mother Suri Rees () Jeryr-Creutzfeld dz Mother Suri Rees (decea sed) 61 y.o. No Known Problems Sister Anesthesia problems Neg Hx Relation Name Status Comments Father Carlos Rees () Alive Maternal Grandmother Aura Hogue () Alive Mother Suri Rees () Alive Sister Alive Social History Tobacco Use Types [...] on file Legal Sex Female 1:32 AM UX INTERACTION DESIGNER Gender Identity Female 12/12/2018 8:34 AM CDT Sexual Orientation Straight 12/12/2018 8: 34 AM CDT Occupation Industry Job Start Date Job End Date retired Not on file Not on file Not on file Obstetrics History Last Filed Vital Signs Vital Sign Reading Time Taken Comments Blood Pressure 138/85 06/17/2024 12:29 PM UX INTERACTION DESIGNER Pulse 72 06/17/2024 10:06 AM UX INTERACTION DESIGNER Temperature 37.2 C (99 F) 01/10/2023 10:50 AM CDT Respiratory Rate 28 01/10/2023 11:10 AM CDT Oxygen Saturation 95% 06/17/2024 10:06 AM UX INTERACTION DESIGNER Inhaled Oxygen Concentration - - Weight 53.1 kg (117 lb) 06/17/2024 10:06 AM UX INTERACTION DESIGNER Height 165.1 cm (5' 5 ) 06/17/2024 10:06 AM UX INTERACTION DESIGNER Body Mass Index 19.47 06/17/2024 10:06 AM UX INTERACTION DESIGNER Plan of Treatment Health Maintenance Due Date [...] 019, 02/10/2018 Medical Devices Implanted Type Area Pie Crust Mixer Device Identifier Shelf Expiration Date Model / Serial / Lot Implantable Loop Recorder Implantable Loop Recorder Chest Medtronic Inc Infuse Kit Xs Graft Bone Rhbmp-2 Bovine Collagen Lumbar Taper [id number] - [id number] Implanted:Qty: 1 on 12/05/2022 by Ion Vergara MD at [facility] N/A: Ronald Medtronic Inc [id number] 04/21/2024 [id number] / / [id number] [employer] Vitoss Void Filler Foam Pack Bioactive Substitute 2.5ml Bone - [id number] Implanted:Qty: 1 on 12/05/2022 by Ion Vergara MD at [facility] N/A: Ronald [employer] [id number] 06/19/[id number] / / [id number] Explanted Type Area Pie Crust Mixer Device Identifier Shelf Expiration Date Model / Serial / Lot Elvia Craniomaxillofacial Leibinger [place] 2 2mm 5mm Self Tap Cross Pin Maxillofacial [id number] - [id number] Implanted:Qty: 8 on 12/05/2022 by Ion Vergara MD at [facility] Explanted:Qty: 8 on 01/10/2023 at [facility] Mandible Elvia Craniomaxillofacial [id number] / / [place] Craniomaxillofacial Leibinger [place] 2 Smart Lock 9 Hole Mandible Small Plate Bone [id number] - [id number] Implanted:Qty: 2 on 12/05/2022 by Ion Vergara MD at [facility] Explanted:Qty: 2 on 01/10/2023 at [facility] Mandible [place] Craniomaxillofacial [id number] / / [place] Craniomaxillofacial Leibinger [place] 2 Smartlock 2mm 8mm Self Drill Lock 50- - [id number] Implanted:Qty: 10 on 12/05/2022 by Ion Vergara MD at [facility] Explanted:Qty: 10 on 01/10/2023 at [facility] Mandible [place] Craniomaxillofacial 50- / / Elvia Craniomaxillofacial 16 Hole Maxillofacial 1.5mm Mini Plate Bone [id number] - [id number] Implanted:Qty: 1 on 12/05/2022 by Ion Vergara MD at [facility] Explanted:Qty: 1 on 01/10/2023 by Ion Vergara MD at [facility] Mandible Elvia Craniomaxillofacial [id number] / / [place] Craniomaxillofacial Leibinger [place] 2 2mm 8mm Lock Cross Pin Mandibular Screw [id number] - [id number] Implanted:Qty: 2 on 12/05/2022 by Ion Vergara MD at [facility] Explanted:Qty: 2 on 01/10/2023 at [facility] Mandible Elvia Craniomaxillofacial [id number] / / Elvia Craniomaxillofacial Leibinger [place] 2 2mm 10mm Lock Cross Pin Maxillofacial Screw [id number] - [id number] Implanted:Qty: 2 on 12/05/2022 by Ion Vergara MD at [facility] Explanted:Qty: 2 on 01/10/2023 at [facility] Mandible Elvia Craniomaxillofacial [id number] / / [place] Craniomaxillofacial Leibinger [place] 2 2mm 12mm Lock Cross Pin Maxillofacial Screw [id number] - [id number] Implanted:Qty: 2 on 12/05/2022 by Ion Vergara MD at [facility] Explanted:Qty: 2 on 01/10/2023 at [facility] Mandible [place] Craniomaxillofacial [id number] / / Elvia Craniomaxillofacial Plate Mini 8mm Mndb [address] Condensed 2mm Screw Bone Ti [id number] - [id number] Implanted:Qty: 1 on 12/05/2022 by Ion Vergara MD at [facility] Explanted:Qty: 1 on 01/10/2023 at [facility] Mandible Elvia Craniomaxillofacial [id number] / / Procedures Procedure Name Priority Date/Time Associated Diagnosis Comments DEVICE CHECK - REMOTE Routine 06/15/2024 8:35 AM UX INTERACTION DESIGNER Syncope and collapse SVT (supraventricular tachycardia) Palpitations PA ARTHROCENTESIS ASPIR&/INJ MAJOR JT/BURSA W/O US Routine 05/06/2024 9:45 AM UX INTERACTION DESIGNER Primary osteoarthritis of right knee PA ARTHROCENTESIS ASPIR&/INJ MAJOR JT/BURSA W/O US Routine 05/06/2024 9:45 AM UX INTERACTION DESIGNER Trochanteric bursitis of left hip DEVICE CHECK - REMOTE Routine 05/06/2024 8:15 AM UX INTERACTION DESIGNER Syncope and collapse SVT (supraventricular tachycardia) Palpitations from Last 3 Months Results * DEVICE CHECK - REMOTE (06/15/2024 8:35 AM UX INTERACTION DESIGNER) Anatomical Region Laterality Modality Other Narrative 06/16/2024 10:24 AM UX INTERACTION DESIGNER [employer] LNQ22 Loop Recorder. Dx; Syncope, Tachycardia, Palpitations. DOI 06/15/2022-Fleissner. Mirza. [facility] remote monitoring Routine ILR remote. Normal device function. Battery function-good Presenting rhythm: NSR Medications: Lisinopril 40 mg Counters since last scheduled transmission on 05/04/24. --[address]/SVT with one episode of NSVT for 5 beats as well --0 Lorne --0 Pause --0 Symptom --0 AF See scanned report. [facility] remote f/u 07/27/24. Rickey Andrade RN us Todd Cedeno MD CV CARDIAC SERVICES PROCE [facility] Final Result * PA ARTHROCENTESIS ASPIR&/INJ MAJOR JT/BURSA W/O US (05/06/2024 9:45 AM UX INTERACTION DESIGNER) Dallas Mcdowell MD - 05/06/2024 9:45 AM UX INTERACTION DESIGNER Dallas Caruso MD 05/06/2024 10:09 AM Large Joint (Hip, Knee, Shoulder) Injection: R knee Performed by: Dallas Caruso MD Authorized by: Dallas Caruso MD Large Joint Injection/Aspiration: Consent Given by: Patient Timeout: prior to procedure the correct patient, procedure, and site was verified Verbal consent obtained: Yes Supporting Documentation: Indications: Pain Procedure Details: Location: Knee Site: R knee Prep: patient was prepped and draped in usual sterile fashion Needle Size: 18 G Approach: Superior lateral Medications: 3 mL lidocaine 10 mg/mL (1 %); 40 mg triamcinolone 40 mg/mL Patient tolerance: Patient tolerated the procedure well with no immediate complications Dallas Caruso MD IN CLINIC/BEDSIDE ORDERABLES Final Result * PA ARTHROCENTESIS ASPIR&/INJ MAJOR JT/BURSA W/O US (05/06/2024 9:45 AM UX INTERACTION DESIGNER) Dallas Mcdowell MD - 05/06/2024 9:45 AM UX INTERACTION DESIGNER Dallas Caruso MD 05/06/2024 10:09 AM Large Joint (Hip, Knee, Shoulder) Injection: L greater trochanteric bursa Performed by: Dallas Caruso MD Authorized by: Dallas Caruso MD Large Joint Injection/Aspiration: Consent Given by: Patient Site marked: the procedure site was marked Timeout: prior to procedure the correct patient, procedure, and site was verified Verbal consent obtained: Yes Supporting Documentation: Indications: Pain Procedure Details: Location: Hip Site: L greater trochanteric bursa Prep: patient was prepped and draped in usual sterile fashion Needle Size: 22 G Approach: Lateral Ultrasound guided: No Medications: 40 mg triamcinolone 40 mg/mL; 2 mL lidocaine 10 mg/mL (1 %) Patient tolerance: Patient tolerated the procedure well with no immediate complications us Dallas Caruso MD IN CLINIC/BEDSIDE ORDERABLES Final Result * DEVICE CHECK - REMOTE (05/06/2024 8:15 AM UX INTERACTION DESIGNER) Anatomical Region Laterality Modality Other Narrative 06/02/2024 3:44 PM UX INTERACTION DESIGNER Medtronic REVEAL LinQ II implanted June 15, 2022 for syncope. Patient had a routine [facility] remote transmission of their implantable loop recorder on May 04, 2024. Medications: None Interrogation of the patients device demonstrates that the Linq is functioning appropriately (0) Symptom events Auto Device detected events of, (0) Pause, (0) Bradycardia, (20) Tachy, longest detected April 24 at 6:02 p.m., shows SVT for 7 minutes 54 seconds in duration. (0) AT, (0) AF, Presenting Rhythm: Normal sinus rhythm at 68 bpm Battery: Good Plan: 1) Routine Remote with Tachy events. 2) Continue to monitor remotely. Zion Tavera Device Draw Tender Todd Cedeno MD CV CARDIAC SERVICES [facility] Final Result from Last 3 Months Insurance MEDICARE [facility] MEDICARE [facility] MEDICARE [employer] MEDICARE SUPPLEMENT MEDICARE [facility] Advance Directives For more information, please contact: [phone] Documents on File Type Date Recorded Patient Loan Manager Expl anation ADVANCE DIRECTIVE 08/21/2012 12:00 AM TJ PEREZ ADVANCE DIRECTIVE 08/21/2012 12:00 AM POWER OF [employer]AND [employer]NER FINANCIAL/MEDICAL * Full Code (Latest Code Status on File) Date Activated Date Inactivated Comments 12/04/2022 12:40 AM 12/07/2022 8:03 PM Care Teams Vision Rehabilitation Therapist Relationship Specialty Start Date End Date Rachel Friend NP [address] [place] [address] PCP - General Family Medicine 11/26/23
--- OUTSIDE RECORDS SUMMARY | 2024-06-29 08:16 | XMS_ITS | Referral Summary ---
Author Organization [facility] Address [address] [place] [address] Care Team Providers Care Coater Helper Name Role Phone Rachel Friend NP Primary Care Provider Encounters Date Type Department Care Team Description 06/24/2024 10:30 AM FINANCIAL REPORTING ADVISOR Ancillary Procedure [facility] Cardiology [address] [place] [address] [place] [phone] Status post placement of implantable loop recorder (Primary Dx); Syncope and collapse; SVT (supraventricular tachycardia); Palpitations 06/24/2024 Telephone [facility] Cardiology [address] [address] [address] [place] [phone] Todd Cedeno MD 06/17/2024 10:00 AM FINANCIAL REPORTING ADVISOR Office Visit [facility] Cardiology at [address] [place] [phone] Todd Cedeno MD SVT (supraventricular tachycardia) (Primary Dx); Benign essential hypertension; Syncope and collapse; Atypical chest pain 06/15/2024 7:30 AM FINANCIAL REPORTING ADVISOR Ancillary Procedure [facility] Cardiology [address] [place] [address] [place] [phone] Status post placement of implantable loop recorder (Primary Dx); Syncope and collapse; SVT (supraventricular tachycardia); Palpitations 05/06/2024 9:45 AM FINANCIAL REPORTING ADVISOR Office Visit [facility] Orthopedics and Sports Medicine [address] [facility] [address] [place] [phone] Dallas Caruso MD Primary osteoarthritis of right knee; Trochanteric bursitis of left hip 05/04/2024 7:00 AM FINANCIAL REPORTING ADVISOR Ancillary Procedure [facility] Cardiology [address] [facility] [address] [place] [phone] Status post placement of implantable loop recorder (Primary Dx); Syncope and collapse; SVT (supraventricular tachycardia); Palpitations from Last 3 Months Allergies Active Allergy [...] implantable loop record er 07/17/2022 Overview (07/17/2022): [employer] LNQ22 Loop Recorder. Dx; Syncope, Tachycardia, Palpitations. DOI 06/15/2022-Fleissner. Mirza. [facility] remote monitoring. Visit for wound check 06/22/2022 [...] on file Legal Sex Female 1:32 AM FINANCIAL REPORTING ADVISOR Gender Identity Female 12/12/2018 8:34 AM CDT Sexual Orientation Straight 12/12/2018 8: 34 AM CDT Occupation Industry Job Start Date Job End Date retired Not on file Not on file Not on file Last Filed Vital Signs Vital Sign Reading Time Taken Comments Blood Pressure 138/85 06/17/2024 12:29 PM FINANCIAL REPORTING ADVISOR Pulse 72 06/17/2024 10:06 AM FINANCIAL REPORTING ADVISOR Temperature 37.2 C (99 F) 01/10/2023 10:50 AM CDT Respiratory Rate 28 01/10/2023 11:10 AM CDT Oxygen Saturation 95% 06/17/2024 10:06 AM FINANCIAL REPORTING ADVISOR Inhaled Oxygen Concentration - - Weight 53.1 kg (117 lb) 06/17/2024 10:06 AM FINANCIAL REPORTING ADVISOR Height 165.1 cm (5' 5 ) 06/17/2024 10:06 AM FINANCIAL REPORTING ADVISOR Body Mass Index 19.47 06/17/2024 10:06 AM FINANCIAL REPORTING ADVISOR Plan of Treatment Not on file Medical Devices Implanted Type Area Ladder Operator Device Identifier Shelf Expiration Date Model / Serial / Lot Implantable Loop Recorder Implantable Loop Recorder Chest Medtronic Inc Infuse Kit Xs Graft Bone Rhbmp-2 Bovine Collagen Lumbar Taper [id number] - [id number] Implanted:Qty: 1 on 12/05/2022 by Ion Vergara MD at [facility] N/A: Ronald Medtronic Inc [id number] 04/21/2024 [id number] / / [id number] [employer] Vitoss Void Filler Foam Pack Bioactive Substitute 2.5ml Bone [id number] - [id number] Implanted:Qty: 1 on 12/05/2022 by Ion Vergara MD at [facility] N/A: Ronald [employer] [id number] 06/19/[id number] / / [id number] Explanted Type Area Ladder Operator Device Identifier Shelf Expiration Date Model / Serial / Lot [place] Craniomaxillofacial Leibinger [place] 2 2mm 5mm Self Tap Cross Pin Maxillofacial 50 - [id number] Implanted:Qty: 8 on 12/05/2022 by Ion Vergara MD at [facility] Explanted:Qty: 8 on 01/10/2023 at [facility] Mandible [place] Craniomaxillofacial 50 / / Elvia Craniomaxillofacial Leibinger [place] 2 Smart Lock 9 Hole Mandible Small Plate Bone [id number] - [id number] Implanted:Qty: 2 on 12/05/2022 by Ion Vergara MD at [facility] Explanted:Qty: 2 on 01/10/2023 at [facility] Mandible Elvia Craniomaxillofacial [id number] / / [place] Craniomaxillofacial Leibinger [place] 2 Smartlock 2mm 8mm Self Drill Lock [id number] - [id number] Implanted:Qty: 10 on 12/05/2022 by Ion Vergara MD at [facility] Explanted:Qty: 10 on 01/10/2023 at [facility] Mandible [place] Craniomaxillofacial 50- / / Elvia Craniomaxillofacial 16 Hole Maxillofacial 1.5mm Mini Plate Bone [id number] - [id number] Implanted:Qty: 1 on 12/05/2022 by Ion Vergara MD at [facility] Explanted:Qty: 1 on 01/10/2023 by Ion Vergara MD at [facility] [place] Mandible Elvia Craniomaxillofacial [id number] / / Elvia Craniomaxillofacial Leibinger [place] 2 2mm 8mm Lock Cross Pin Mandibular Screw [id number] - [id number] Implanted:Qty: 2 on 12/05/2022 by Ion Vergara MD at [facility] Explanted:Qty: 2 on 01/10/2023 at [facility] Mandible Elvia Craniomaxillofacial [id number] / / [place] Craniomaxillofacial Leibinger [place] 2 2mm 10mm Lock Cross Pin Maxillofacial Screw [id number] - [id number] Implanted:Qty: 2 on 12/05/2022 by Ion Vergara MD at [facility] Explanted:Qty: 2 on 01/10/2023 at [facility] Mandible [place] Craniomaxillofacial [id number] / / Elvia Craniomaxillofacial Leibinger [place] 2 2mm 12mm Lock Cross Pin Maxillofacial Screw [id number] - [id number] Implanted:Qty: 2 on 12/05/2022 by Ion Vergara MD at [facility] Explanted:Qty: 2 on 01/10/2023 at [facility] Mandible Elvia Craniomaxillofacial [id number] / / [place] Craniomaxillofacial Plate Mini 8mm Mndb [address] Condensed 2mm Screw Bone Ti [id number] - [id number] Implanted:Qty: 1 on 12/05/2022 by Ion Vergara MD at [facility] Explanted:Qty: 1 on 01/10/2023 at [facility] [place] Mandible Elvia Craniomaxillofacial [id number] / / Procedures Procedure Name Priority Date/Time Associated Diagnosis Comments DEVICE CHECK - REMOTE Routine 06/15/2024 8:35 AM FINANCIAL REPORTING ADVISOR Syncope and collapse SVT (supraventricular tachycardia) Palpitations AR ARTHROCENTESIS ASPIR&/INJ MAJOR JT/BURSA W/O US Routine 05/06/2024 9:45 AM FINANCIAL REPORTING ADVISOR Primary osteoarthritis of right knee AR ARTHROCENTESIS ASPIR&/INJ MAJOR JT/BURSA W/O US Routine 05/06/2024 9:45 AM FINANCIAL REPORTING ADVISOR Trochanteric bursitis of left hip DEVICE CHECK - REMOTE Routine 05/06/2024 8:15 AM FINANCIAL REPORTING ADVISOR Syncope and collapse SVT (supraventricular tachycardia) Palpitations from Last 3 Months Results * DEVICE CHECK - REMOTE (06/15/2024 8:35 AM FINANCIAL REPORTING ADVISOR) Anatomical Region Laterality Modality Other Narrative 06/16/2024 10:24 AM FINANCIAL REPORTING ADVISOR Medtronic LNQ22 Loop Recorder. Dx; Syncope, Tachycardia, Palpitations. DOI 06/15/2022-Fleissner. Mirza. [facility] remote monitoring Routine ILR remote. Normal device function. Battery function-good Presenting rhythm: NSR Medications: Lisinopril 40 mg Counters since last scheduled transmission on 05/04/24. --[address]/SVT with one episode of NSVT for 5 beats as well --0 Lorne --0 Pause --0 Symptom --0 AF See scanned report. [facility] remote f/u 07/27/24. Rickey Andrade RN us Todd Cedeno MD CV CARDIAC SERVICES PROCE DURES Final Result * AR ARTHROCENTESIS ASPIR&/INJ MAJOR JT/BURSA W/O US (05/06/2024 9:45 AM FINANCIAL REPORTING ADVISOR) Dallas Mcdowell MD - 05/06/2024 9:45 AM FINANCIAL REPORTING ADVISOR Dallas Caruso MD 05/06/2024 10:09 AM Large [...] MD IN CLINIC/BEDSIDE ORDERABLES Final Result * AR ARTHROCENTESIS ASPIR&/INJ MAJOR JT/BURSA W/O US (05/06/2024 9:45 AM FINANCIAL REPORTING ADVISOR) Dallas Mcdowell MD - 05/06/2024 9:45 AM FINANCIAL REPORTING ADVISOR Dallas Caruso MD 05/06/2024 10:09 AM Large [...] DEVICE CHECK - REMOTE (05/06/2024 8:15 AM FINANCIAL REPORTING ADVISOR) Anatomical Region Laterality Modality Other Narrative 06/02/2024 3:44 PM FINANCIAL REPORTING ADVISOR Medtronic REVEAL LinQ II implanted June 15, [...] Continue to monitor remotely. Zion Tavera Device Mannequin Refinisher us Todd Cedeno MD CV CARDIAC SERVICES PROCE [facility] Final Result from Last 3 Months Insurance MEDICARE [facility] MEDICARE [facility] MEDICARE BLUE CROSS MEDICARE SUPPLEMENT MEDICARE [facility] Advance Directives For more information, please contact: [phone] Documents on File Type Date Recorded Patient Social Sciences Professor Expl anation ADVANCE DIRECTIVE 08/21/2012 12:00 AM TJ PEREZ ADVANCE DIRECTIVE 08/21/2012 12:00 AM POWER OF SALES REVIEW CLERK FINANCIAL/MEDICAL * Full Code (Latest Code Status on File) Date Activated Date Inactivated Comments 12/04/2022 12:40 AM 12/07/2022 8:03 PM Care Teams Coater Helper Relationship Specialty Start Date End Date Rachel Friend NP [address] [facility] [place] [address] PCP - General Family Medicine 11/26/23
--- OUTSIDE RECORDS SUMMARY | 2024-06-29 08:16 | XMS_ITS | Clinical Summary ---
Author Organization 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 [employer] Not on file Not on file Not on file Last Filed Vital Signs Vital Sign Reading Time Taken Comments Blood Pressure 148/89 05/09/2022 11:53 AM MARKETING OPERATIONS ASSOCIATE Pulse 93 05/09/2022 11:53 AM MARKETING OPERATIONS ASSOCIATE Temperature 36.6 C (97.8 F) 05/09/2022 11:53 AM MARKETING OPERATIONS ASSOCIATE Respiratory Rate 18 04/20/2022 8:01 AM MARKETING OPERATIONS ASSOCIATE Oxygen Saturation 99% 04/20/2022 8:01 AM MARKETING OPERATIONS ASSOCIATE Inhaled Oxygen Concentration - - Weight 51.9 kg (114 lb 6.4 oz) 05/09/2022 11:53 AM MARKETING OPERATIONS ASSOCIATE Height 160 cm (5' 3 ) 05/09/2022 11:53 AM MARKETING OPERATIONS ASSOCIATE Body Mass Index 20.27 05/09/2022 11:53 AM MARKETING OPERATIONS ASSOCIATE Plan of Treatment Health Maintenance Due Date Last Done Comments Hepatitis C 1963 Zoster Vaccines (2 of 3) 07/25/2007 05/30/2007 Annual Medicare Wellness Visit 2011 Dexa Scan (General) 2011 DTaP, Tdap and Td Vaccines (2 - Td or Tdap) 08/22/2019 08/21/2009 RSV Immunization or 60+ Years (1 - 1-dose 75+ series) 2021 COVID-19 Vaccine ( season) 2023 07/26/2021, 02/14/2021, 07/08/2020, Additional history [...] age to complete this topic Insurance MEDICARE [facility] Care Teams Refrigeration Lead Relationship Specialty Start Date End Date Rachel Friend FNP PCP - General Nurse Practitioner Family 07/20/21
--- OUTSIDE RECORDS SUMMARY | 2024-06-29 08:16 | XMS_ITS | Encounter Summary ---
Author Organization [facility] Facility Care Team Providers Care Sales Development Manager Name Role Phone Tara Hudson MD Primary Care Provider Gege Herrera MD Primary Care Provider Rachel Friend LOCAL COMPANY TANKER DRIVER Primary Care Provider [phone] Emily Clements LOCAL COMPANY TANKER DRIVER Primary Care Provider [phone] Rachel Friend LOCAL COMPANY TANKER DRIVER Primary Care Provider [phone] Encounter Details Date Type Department Care Team (Latest Contact Info) Description 11/25/2017 Orders Only [facility] CLINCONV ProviderAlhaji MD [address] [place] [address] Social History Tobacco Use Types Packs/Day Years Used Date Smoking Tobacco: Never Assessed Comments Unknown Sex and Gender Information Value Date Recorded Sex Assigned at Not on file Legal Sex Female 1:32 AM WAREHOUSE REPRESENTATIVE Gender Identity Female 12/12/2018 8:34 AM CDT [...] on filedocumented in this encounter Care Teams Sales Development Manager Relationship Specialty Start Date End Date Tara Hudson MD [address] [facility] [address] [place] [address] PCP - General 12/17/16 11/02/19 Gege Herrera MD [address] [address] PCP - General Family Medicine 11/03/19 10/16/20 Rachel Friend NP [address] [address] PCP - General Family Medicine 10/17/20 01/09/23 Emily Clements NP [address] [place] [address] PCP - General Nurse Practitioner 01/10/23 11/25/23 Rachel Friend NP [address] [place] [address] PCP - General Family Medicine 11/26/23 documented as of this encounter
--- OUTSIDE RECORDS SUMMARY | 2024-06-29 08:16 | XMS_ITS | Continuity of Care Document ---
Author Organization [facility] Address [address] [place] [address] Phone Care Team Providers Care Reconditioner Name Role Phone Nabor Ceja MD Unavailable [...] Copied on Encounter OFFICE/OUTPA TIENT VISIT NEW [facility], [address] [facility] [address], [place], [address], tel:[phone] [facility] My back and right ankle hurt alot (chief complaint) Body mass index (BMI) 19 or less, adultLow back painPeroneal tendinitis of right lower extremitySpondylo listhesis at L4-L5 level 6 Brenna Tomlin. [address] [place], [place], [address] . tel:[phone] Referring Provider: Tara Hudson, [address] [place], [address] . tel:[phone] Family History Family Member Type Diagnosis Age At Onset Father Problem (finding) hypertension Father Problem (finding) depression Payers Payer name Insurance type Covered constitution party ID Ronnie andujar(s) Medicare E2 OT [id number] Combined Insurance OT [id number] Social History Type Description Quantity Date Captured [...]
--- OUTSIDE RECORDS SUMMARY | 2024-06-29 08:16 | XMS_ITS | Patient Health Summary ---
Author Organization [facility] Address [address] [place] [address] Care Team Providers Care Insecticide Expert Name Role Phone Tara Hudson MD Primary Care Provider [phone] Note from [facility],non-owned Affiliates and Associated Physician Practices is amultiple site organization consisting of ambulatory clinics and hospital sitesin [place], [place], [place] and [place]. This disclosure is being madepursuant to the Care Everywhere program and may not contain all information available regarding this patient. Last updated 18.[facility] Allergies * Clarithromycin(GI Discomfort) * Erythromycin(GI Discomfort) [...] Comments Blood Pressure 128/72 05/27/2018 12:26 PM CNA GNA Pulse 80 05/27/2018 12:26 PM CNA GNA Temperature 37 C (98.6 F) 05/27/2018 12:26 PM CNA GNA Respiratory Rate 16 05/27/2018 12:26 PM CNA GNA Oxygen Saturation 100% 05/27/2018 12:26 PM CNA GNA Inhaled Oxygen Concentration - - Weight 52.2 kg (115 lb) 05/27/2018 12:26 PM CNA GNA Height 162.6 cm (5' 4 ) 05/27/2018 12:26 PM CNA GNA Body Mass Index 19.74 05/27/2018 12:26 PM CNA GNA Procedures * CULTURE URINE(Performed 05/27/2018) Performed for Acute cystitis with hematuria * URINALYSIS AUTO - POINT OF CARE (AMB) STL(Performed 05/27/2018) Performed for Acute cystitis with hematuria Results * (ABNORMAL) CULTURE URINE (05/27/2018 2:37 PM CNA GNA) Culture (A) [facility] Comment: CULTURE, URINE, ROUTINE MICRO NUMBER: [id number] TEST STATUS: FINAL SPECIMEN SOURCE: URINE SPECIMEN QUALITY: ADEQUATE RESULT: Greater than 100,000 CFU/mL of Escherichia coli E.coli INT KAYLA AMOX/CLAVULANATE S 4 AMPICILLIN S 8 AMP/SULBACTAM S 4 CEFAZOLIN NR <=4 2 CEFEPIME S <=1 CEFTRIAXONE S <=1 CIPROFLOXACIN R >=4 ERTAPENEM S <=0.5 GENTAMICIN S <=1 IMIPENEM S <=0.25 LEVOFLOXACIN R >=8 NITROFURANTOIN S <=16 PIP/TAZOBACTAM S <=4 TOBRAMYCIN S <=1 TRIMETHOPRIM/SULFA S <=20 S=Susceptible I=Intermediate R=Resistant * = Not Tested NR = Not Reported NN = See Therapy Comments THERAPY COMMENTS Note 1: For infections other than uncomplicated UTI caused by E. coli, K. pneumoniae or P. mirabilis: Cefazolin is resistant if KAYLA > or = 8 mcg/mL. (Distinguishing susceptible versus intermediate for isolates with KAYLA < or = 4 mcg/mL requires additional testing.) Note 2: For uncomplicated UTI caused by E. coli, K. pneumoniae or P. mirabilis: Cefazolin is susceptible if KAYLA <32 mcg/mL and predicts susceptible to the oral agents cefaclor, cefdinir, cefpodoxime, cefprozil, cefuroxime, cephalexin and loracarbef. Test Performed at: [email or web address] [address] EILEEN ALFRED MD Urine URINE SPECIMEN OBTAINED BY CLEAN CATCH PROCEDURE / Unknown 05/27/2018 2:37 PM CNA GNA 05/28/2018 1:06 AM CNA GNA Evelyn Kerr OCULAR CARE TECHNICIAN-INSOLE BOTTOM FILLER LAB - MICROBIOLOG Y ORDERABLES [facility] [address] [place] [address] * (ABNORMAL) URINALYSIS AUTO - POINT OF CARE (AMB) STL (05/27/2018 2:19 PM CNA GNA) Clarity UA POCT cloudy Color UA POCT orange Leukocyte UA 70+ Negative Nitrite UA POCT negative Negative Urobilinogen UA 0.2 0.1 - 1.0 Protein UA POCT 15+ Negative pH UA 6.5 5.0 - 8.0 pH units Blood UA 5-10 Negative Specific [place]ango UA POCT 1.010 1.002 - 1.030 Ketone UA negative Negative Bilirubin UA POCT negative Negative Glucose UA negative Negative Expiration Date [id number] Lot # [id number] QC Verified Yes Yes Urine URINE / Unknown 05/27/2018 2 :19 PM CNA GNA Evelyn Kerr OCULAR CARE TECHNICIAN-INSOLE BOTTOM FILLER LAB - POINT OF CA RE ORDERABLES Care Teams Insecticide Expert Relationship Specialty Start Date End Date Tara Hudson MD [address] [id number] PCP - General 12/12/12
--- OUTSIDE RECORDS SUMMARY | 2024-06-29 08:16 | XMS_ITS | Encounter Summary ---
Author Organization [facility] Facility Care Team Providers Care Biologist Aide Name Role Phone Tara Hudson MD Primary Care Provider Gege Herrera MD Primary Care Provider Rachel Friend EXTRUSION DIE CORRECTOR Primary Care Provider [phone] Emily Clements EXTRUSION DIE CORRECTOR Primary Care Provider [phone] Rachel Friend EXTRUSION DIE CORRECTOR Primary Care Provider [phone] Encounter Details Date Type Department Care Team (Latest Contact Info) Description 12/02/2017 Orders Only [facility] CLINCONV ProviderAlhaji MD [address] [place] [address] Social History Tobacco Use Types Packs/Day Years Used Date Smoking Tobacco: Never Assessed Comments Unknown Sex and Gender Information Value Date Recorded Sex Assigned at Not on file Legal Sex Female 1:32 AM FREIGHT DELIVERY DRIVER Gender Identity Female 12/12/2018 8:34 AM CDT [...] on filedocumented in this encounter Care Teams Biologist Aide Relationship Specialty Start Date End Date Tara Hudson MD [address] [facility] [address] [place] [address] PCP - General 12/17/16 11/02/19 Gege Herrera MD [address] [address] PCP - General Family Medicine 11/03/19 10/16/20 Rachel Friend NP [address] [address] PCP - General Family Medicine 10/17/20 01/09/23 Emily Clements NP [address] [place] [address] PCP - General Nurse Practitioner 01/10/23 11/25/23 Rachel Friend NP [address] [place] [address] PCP - General Family Medicine 11/26/23 documented as of this encounter
--- OUTSIDE RECORDS SUMMARY | 2024-06-29 08:16 | XMS_ITS | Encounter Summary ---
Author Organization [facility] Facility Care Team Providers Care Electromyographic Technician Name Role Phone Tara Hudson MD Primary Care Provider [phone] Gege Herrera MD Primary Care Provider Rachel Friend RETAIL PLANNING MANAGER Primary Care Provider [phone] Emily Clements RETAIL PLANNING MANAGER Primary Care Provider [phone] Rachel Friend RETAIL PLANNING MANAGER Primary Care Provider [phone] Encounter Details Date Type Department Care Team (Latest Contact Info) Description 02/06/2016 Orders Only [facility] CLINCONV Provider, MD Alhaji [address] [place] [address] Social History Tobacco Use Types Packs/Day Years Used Date Smoking Tobacco: Never Assessed Comments Unknown Sex and Gender Information Value Date Recorded Sex Assigned at Not on file Legal Sex Female 1:32 AM SENIOR MANAGING DIRECTOR Gender Identity Female 12/12/2018 8:34 AM CDT [...] on filedocumented in this encounter Care Teams Electromyographic Technician Relationship Specialty Start Date End Date Tara Hudson MD [address] [facility] [address] [place] [address] PCP - General 12/17/16 11/02/19 Gege Herrera MD [address] [address] PCP - General Family Medicine 11/03/19 10/16/20 Rachel Friend NP [address] [address] PCP - General Family Medicine 10/17/20 01/09/23 Emily Clements NP [address] [place] [address] PCP - General Nurse Practitioner 01/10/23 11/25/23 Rachel Freind NP [address] [place] [address] PCP - General Family Medicine 11/26/23 documented as of this encounter
[2024-06-29 14:10] LABS: Basophils Absolute Auto 0.1 K/mm3 (0.0-0.1); Basophils Percent Auto 1.1 % (0.2-1.2); Eosinophils Absolute Auto 0.2 K/mm3 (0-0.3); Eosinophils Percent Auto 3.2 % (0-4.4); Hematocrit 44.4 % (37.0-47.0); Hemoglobin 14.5 g/dL (12.0-15.0); Immature Granulocyte Absolute 0.02 K/mm3 (0.00-0.031); Immature Granulocyte Percent A 0.4 % (0-0.5); Lymphocytes Absolute Auto 1.11 K/mm3 (0.9-3.2); Lymphocytes Percent Auto 19.8 % (18.3-44.2); Mean Corpuscular HGB Conc 32.7 g/dl (32-36); Mean Corpuscular Hemoglobin 32.1 pg (26-34); Mean Corpuscular Volume 98.2 fl (80-100); Mean Platelet Volume 9.3 fl (7.4-10.4); Monocytes Absolute Auto 0.6 K/mm3 (0.1-0.6); Neutrophils Absolute Auto 3.7 K/mm3 (1.3-6.7); Neutrophils Percent Auto 65.5 % (45.5-73.1); Platelet Count Result 291 k/mm3 (150-375); Red Blood Count 4.52 M/mm3 (4.2-5.4); Red Cell Distribution Width 13.2 % (11.5-14.5); White Blood Count 5.6 K/mm3 (4.5-10.0)
[2024-06-29 14:49] LABS: LDL Cholesterol Direct 81 mg/dL
[2024-06-29 15:01] LABS: Alanine Aminotransferase 20 U/L (6-35); Albumin Level 4.5 g/dL (3.5-5.1); Alkaline Phosphatase 56 U/L (38-126); Anion Gap 9 mmol/L (4-12); Aspartate Amino Transferase 49 U/L (14-36); Bilirubin,Total 0.7 mg/dL (0.2-1.3); Blood Urea Nitrogen 15 mg/dL (7-17); Calcium 9.6 mg/dL (8.4-10.2); Carbon Dioxide 27 mmol/L (22-30); Chloride 97 mmol/L (98-107); Cholesterol 216 mg/dL (0-200); Estimated Glomerular Filt Rate > 60; Glucose 79 mg/dL (65-110); Potassium 4.6 mmol/L (3.4-5.0); Sodium 133 mmol/L (137-145); Triglycerides 55 mg/dL (<150)
[2024-06-29 15:18] LABS: HDL Direct 116 mg/dL
== END 2024-06-29 08:05 | disposition home or self-care (01) ==
LOC: ANHGOSHLAB 08:05
PROVIDERS: PCP Nurse Practitioner Family; Visit Provider Nurse Practitioner Family
DX: E78.5 Hyperlipidemia, unspecified (principal); I10 Essential (primary) hypertension
CPT/HCPCS: 36415; 80053; 80061; 85025

== ENCOUNTER 2024-07-13 10:40 | Inpatient (IN) | payer MEDICARE, SELFPAY ==
[2024-07-10 12:53] VITALS: BMI 20.2
[2024-07-13] VITALS (44 sets, daily range): BP systolic 112–166; BP diastolic 63–112; PULSE 69–97; RESP 12–19; TEMP 36.3–37.1; O2SAT 96–100; BMI 19.8; BMI 21.0
--- NOTE | ~2024-07-13 | US_ITS ---
EXAMINATION: US arterial duplex UE RT DATE: 07/14/2024 09:25 INDICATION: Right radial artery hematoma after cardiac catheterization. TECHNIQUE: Multiple grayscale and Doppler ultrasound images of the right upper limb were obtained. COMPARISON: Ultrasound 07/13/2024 FINDINGS: There is a 10 x 3 x 7 mm hematoma superficial to the right radial artery. No pseudoaneurysm . There is normal flow in right radial artery. IMPRESSION: 1. No pseudoaneurysm. Reviewed, dictated and finalized at location A. IMPRESSION: 1. No pseudoaneurysm.
--- NOTE | ~2024-07-13 | US_ITS ---
EXAMINATION: US arterial duplex UE RT DATE: 07/13/2024 17:21 INDICATION: Swelling and bruising at the plantar aspect of the right wrist near the site of vascular access for cardiac catheterization. TECHNIQUE: Multiple grayscale and Doppler ultrasound images of the arteries of the right upper limb w ere obtained. COMPARISON: None FINDINGS: Normal biophysical waveforms with brisk systolic upstrokes are seen at the right radial and ulnar art eries at the right wrist. There is approximately 10 x 4 x 9 mm hypoechoic region along side the radia l artery without evident internal vascular flow on color Doppler. Representing a small hematoma relat ed to the recent vascular access. No pseudoaneurysm 5. IMPRESSION: 1. 10 x 9 x 4 mm hypoechoic likely hematoma along the superficial margin of the right radial artery a t the wrist with no evident pseudoaneurysm. Reviewed, dictated and finalized at location B. IMPRESSION: 1. 10 x 9 x 4 mm hypoechoic likely hematoma along the superficial margin of the right radial artery at the wrist with no evident pseudoaneurysm.
--- OUTSIDE RECORDS SUMMARY | 2024-07-13 01:52 | XMS_ITS | Encounter Summary ---
Author Organization [facility] Facility Care Team Providers Care Debit Agent Name Role Phone Tara Hudson MD Primary Care Provider [phone] Gege Herrera MD Primary Care Provider Rachel Friend AGRICULTURE LABORATORY TECHNICIAN Primary Care Provider [phone] Emily Clements AGRICULTURE LABORATORY TECHNICIAN Primary Care Provider [phone] Rachel Friend AGRICULTURE LABORATORY TECHNICIAN Primary Care Provider [phone] Encounter Details Date Type Department Care Team (Latest Contact Info) Description 12/02/2017 Orders Only [facility]G CLINCONV ProviderAlhaji MD [address] [place] [address] Social History Tobacco Use Types Packs/Day Years Used Date Smoking Tobacco: Never Assessed Comments Unknown Sex and Gender Information Value Date Recorded Sex Assigned at Not on file Legal Sex Female 1:32 AM VASCULAR RADIOLOGIST Gender Identity Female 12/12/2018 8:34 AM CDT [...] on filedocumented in this encounter Care Teams Debit Agent Relationship Specialty Start Date End Date Tara Hudson MD [address] [facility] [address] [place] [address] PCP - General 12/17/16 11/02/19 Gege Herrera MD [address] [address] PCP - General Family Medicine 11/03/19 10/16/20 Rachel Friend NP [address] [address] PCP - General Family Medicine 10/17/20 01/09/23 Emily Clements NP [address] [place] [address] PCP - General Nurse Practitioner 01/10/23 11/25/23 Rachel Friend NP [address] [place] [address] PCP - General Family Medicine 11/26/23 documented as of this encounter
--- OUTSIDE RECORDS SUMMARY | 2024-07-13 01:52 | XMS_ITS | Encounter Summary ---
Author Organization [facility] Facility Care Team Providers Care Signal Mechanic Name Role Phone Tara Hudson MD Primary Care Provider Gege Herrera MD Primary Care Provider Rachel Friend APPLICATION DBA Primary Care Provider [phone] Emily Clements APPLICATION DBA Primary Care Provider [phone] Rachel Friend APPLICATION DBA Primary Care Provider [phone] Encounter Details Date Type Department Care Team (Latest Contact Info) Description 02/06/2016 Orders Only MMG CLINCONV Provider, MD Alhaji [address] [place] [address] Social History Tobacco Use Types Packs/Day Years Used Date Smoking Tobacco: Never Assessed Comments Unknown Sex and Gender Information Value Date Recorded Sex Assigned at Not on file Legal Sex Female 1:32 AM AUTOMATIC SPREADER OPERATOR Gender Identity Female 12/12/2018 8:34 AM [...] on filedocumented in this encounter Care Teams Signal Mechanic Relationship Specialty Start Date End Date Tara Hudson MD [address] [facility] [address] [place] [address] PCP - General 12/17/16 11/02/19 Gege Herrera MD [address] [address] PCP - General Family Medicine 11/03/19 10/16/20 Rachel Friend NP [address] [address] PCP - General Family Medicine 10/17/20 01/09/23 Emily Clements NP [address] [place] [address] PCP - General Nurse Practitioner 01/10/23 11/25/23 Rachel Friend NP [address] [place] [address] PCP - General Family Medicine 11/26/23 documented as of this encounter
--- OUTSIDE RECORDS SUMMARY | 2024-07-13 01:52 | XMS_ITS | Continuity of Care Document ---
Author Organization [facility] Address [address] [place] [address] Phone Care Team Providers Care Data Support Specialist Name Role Phone Jim Etienne MD Unavailable Unavailable Medications Medication Instructions Dosage Effective Dates (start - stop) Status Comments IPRATROPIUM 0.03% SPRAY 1 TID - Active IPRATROPIUM BROMIDE 21MCG SPRA 1 TID - No Longer Active Advance Directives Directive Yes / No Effective Date File Name No Information Encounters Encounter Description Practice Location Reason(s) For Visit Diagnoses Date Provider Providers Copied on Encounter MySupportAssistant [facility], [address], [place], [place], [id number], [place] tel:[phone] [facility] No Information [address] [place] [address], [id number] , [place]. tel: [phone] [facility], [address], [place], [place], [address], tel:[phone] [facility] CHRONIC RHINITISNASAL & SINUS DIS NEC 9 Lowell Fernandez. [address], [id number] , [place]. 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 [address], [place], [place], [id number] . tel: [phone] Family History Family Member Type Diagnosis Age At Onset No Information Payers Payer name Insurance type Covered constitution party ID Authoriza tion(s) No Information Social [...]
--- OUTSIDE RECORDS SUMMARY | 2024-07-13 01:52 | XMS_ITS | Encounter Summary ---
Author Organization [facility] Facility Care Team Providers Care Automatic Developer Name Role Phone Tara Hudson MD Primary Care Provider [phone] Gege Herrera MD Primary Care Provider Rachel Friend FILTROSE CRUSHER Primary Care Provider [phone] Emily Clements FILTROSE CRUSHER Primary Care Provider [phone] Rachel Friend FILTROSE CRUSHER Primary Care Provider [phone] Encounter Details Date Type Department Care Team (Latest Contact Info) Description 11/25/2017 Orders Only [facility]G CLINCONV ProviderAlhaji MD [address] [place] [address] Social History Tobacco Use Types Packs/Day Years Used Date Smoking Tobacco: Never Assessed Comments Unknown Sex and Gender Information Value Date Recorded Sex Assigned at Not on file Legal Sex Female 1:32 AM DIRECTOR LEARNING Gender Identity Female 12/12/2018 8:34 AM CDT [...] on filedocumented in this encounter Care Teams Automatic Developer Relationship Specialty Start Date End Date Tara Hudson MD [address] [facility] [address] [place] [address] PCP - General 12/17/16 11/02/19 Gege Herrera MD [address] [address] PCP - General Family Medicine 11/03/19 10/16/20 Rachel Friend NP [address] [address] PCP - General Family Medicine 10/17/20 01/09/23 Emily Clements NP [address] [place] [address] PCP - General Nurse Practitioner 01/10/23 11/25/23 Rachel Friend NP [address] [place] [address] PCP - General Family Medicine 11/26/23 documented as of this encounter
--- OUTSIDE RECORDS SUMMARY | 2024-07-13 01:52 | XMS_ITS | Encounter Summary ---
Author Organization [facility] Facility Care Team Providers Care Card Dealer Name Role Phone Tara Hudson MD Primary Care Provider Gege Herrera MD Primary Care Provider Rachel Friend APPRENTICESHIP TRAINING REPRESENTATIVE Primary Care Provider [phone] Emily Clements APPRENTICESHIP TRAINING REPRESENTATIVE Primary Care Provider [phone] Rachel Frined APPRENTICESHIP TRAINING REPRESENTATIVE Primary Care Provider [phone] Encounter Details Date Type Department Care Team (Latest Contact Info) Description 02/22/2016 Orders Only [facility]G CLINCONV ProviderAlhaji MD [address] [place] [address] Social History Tobacco Use Types Packs/Day Years Used Date Smoking Tobacco: Never Assessed Comments Unknown Sex and Gender Information Value Date Recorded Sex Assigned at Not on file Legal Sex Female 1:32 AM LABORER DRYING 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 [facility] Provider MD Final Res ult documented in this encounter Visit Diagnoses Not on filedocumented in this encounter Care Teams Card Dealer Relationship Specialty Start Date End Date Tara Hudson MD [address] [address] PCP - General 12/17/16 11/02/19 Gege Herrera MD [address] [address] PCP - General Family Medicine 11/03/19 10/16/20 Rachel Friend NP [address] [place] [address] PCP - General Family Medicine 10/17/20 01/09/23 Emily Celments NP [address] [place] [address] PCP - General Nurse Practitioner 01/10/23 11/25/23 Rachel Friend NP [address] [place] [address] PCP - General Family Medicine 11/26/23 documented as of this encounter
--- OUTSIDE RECORDS SUMMARY | 2024-07-13 01:52 | XMS_ITS | Encounter Summary ---
Author Organization [facility] Address [address] [place] [address] Care Team Providers Care Music Teacher Name Role Phone Rachel Friend NP Primary Care Provider [phone] Encounter Details Date Type Department Care Team (Late st Contact Info) Description 07/02/2024 Results Follow-Up [facility] Cardiology [address] [place] [address] Todd Cedeno MD [facility] [place] [id number] Social History Tobacco Use Types Packs/Day Years Used Date Smoking Tobacco: Never Cigarettes Smokeless Tobacco: Never Alcohol Use Standard Drinks/Week Comments Yes 0 [...] on file Legal Sex Female 1:32 AM GUEST RELATIONS EXECUTIVE Gender Identity Female 12/12/2018 8:34 AM CDT Sexual Orientation Straight 12/12/2018 8: 34 AM CDT Occupation Industry Job Start Date Job End Date retired Not on file Not on file Not on file documented as of this encounter Plan of Treatment Not on file documented as of this encounter Visit Diagnoses Not on filedocumented in this encounter Care Teams Music Teacher Relationship Specialty Start Date End Date Rachel Friend NP [address] [place] [address] PCP - General Family Medicine 11/26/23 documented as of this encounter
--- OUTSIDE RECORDS SUMMARY | 2024-07-13 01:52 | XMS_ITS | Clinical Summary ---
Author Organization [facility] Address [address] [place] [address] Care Team Providers Care Administrative Office Manager Name Role Phone Tara Hudson MD Primary Care Provider [phone] Source Comments [facility],non-owned Affiliates and Associated Physician Practices is amultiple site organization consisting of ambulatory clinics and hospital sitesin [place], [place], [place]. This disclosure is being madepursuant to the Care Everywhere program and may not contain all information available regarding this patient. Last updated 18.[facility] Allergies Active Allergy Reactions Criticality Noted Date [...] Comments Blood Pressure 128/72 05/27/2018 12:26 PM BOX LINING MACHINE OPERATOR Pulse 80 05/27/2018 12:26 PM BOX LINING MACHINE OPERATOR Temperature 37 C (98.6 F) 05/27/2018 12:26 PM BOX LINING MACHINE OPERATOR Respiratory Rate 16 05/27/2018 12:26 PM BOX LINING MACHINE OPERATOR Oxygen Saturation 100% 05/27/2018 12:26 PM BOX LINING MACHINE OPERATOR Inhaled Oxygen Concentration - - Weight 52.2 kg (115 lb) 05/27/2018 12:26 PM BOX LINING MACHINE OPERATOR Height 162.6 cm (5' 4 ) 05/27/2018 12:26 PM BOX LINING MACHINE OPERATOR Body Mass Index 19.74 05/27/2018 12:26 PM BOX LINING MACHINE OPERATOR Plan of Treatment Health Maintenance [...] to complete this topic MENINGOCOCCAL (Group B) VACC INE SHARED DECISION-MAKING Aged Out No longer eligibl e based on patient's age to complete this topic MENINGOCOCCAL GROUPS A/C/Y/W VACCINE Aged Out No longer eligible b ased on patient's age to complete this topic Care Teams Administrative Office Manager Relationship Specialty Start Date End Date Tara Hudson MD [address] [place] [address] PCP - General 12/12/12
--- OUTSIDE RECORDS SUMMARY | 2024-07-13 01:52 | XMS_ITS | Encounter Summary ---
Author Organization [facility] Facility Care Team Providers Care Para Educator Name Role Phone Tara Hudson MD Primary Care Provider Gege Herrera MD Primary Care Provider Rachel Friend CRACKER AND COOKIE MACHINE OPERATOR Primary Care Provider [phone] Emily Clements CRACKER AND COOKIE MACHINE OPERATOR Primary Care Provider [phone] Rachel Friend CRACKER AND COOKIE MACHINE OPERATOR Primary Care Provider [phone] Encounter Details Date Type Department Care Team (Latest Contact Info) Description 01/04/2016 Orders Only [facility] CLINCONV ProviderAlhaji MD [address] [place] [id number] Social History Tobacco Use Types Packs/Day Years Used Date Smoking Tobacco: Never Assessed Comments Unknown Sex and Gender Information Value Date Recorded Sex Assigned at Not on file Legal Sex Female 1:32 AM SEWER PIPE PRESS OPERATOR Gender Identity Female 12/12/2018 8:34 AM [...] AM CDT Ordered by an unspecified provider. [facility] Provider MD Final Res ult documented in this encounter Visit Diagnoses Not on filedocumented in this encounter Care Teams Para Educator Relationship Specialty Start Date End Date Tara Hudson MD [address] [address] PCP - General 12/17/16 11/02/19 Gege Herrera MD [address] [address] PCP - General Family Medicine 11/03/19 10/16/20 Rachel Friend NP [address] [place] [address] PCP - General Family Medicine 10/17/20 01/09/23 Emily Clements NP [address] [place] [address] PCP - General Nurse Practitioner 01/10/23 11/25/23 Rachel Friend NP [address] [place] [address] PCP - General Family Medicine 11/26/23 documented as of this encounter
--- OUTSIDE RECORDS SUMMARY | 2024-07-13 01:52 | XMS_ITS | Encounter Summary ---
Author Organization [facility] Facility Care Team Providers Care Roll Dough Divider Name Role Phone Tara Hudson MD Primary Care Provider Gege Herrera MD Primary Care Provider Rachel Friend PROMOTIONS PRODUCER Primary Care Provider [phone] Emily Clements PROMOTIONS PRODUCER Primary Care Provider [phone] Rachel Friend PROMOTIONS PRODUCER Primary Care Provider [phone] Encounter Details Date Type Department Care Team (Latest Contact Info) Description 03/05/2016 Orders Only [facility] CLINCONV ProviderAlhaji MD [address] [place] [address] Social History Tobacco Use Types Packs/Day Years Used Date Smoking Tobacco: Never Assessed Comments Unknown Sex and Gender Information Value Date Recorded Sex Assigned at Not on file Legal Sex Female 1:32 AM BINDERY OPERATOR Gender Identity Female 12/12/2018 8:34 AM CDT Sexual Orientation Straight 12/12/2018 8: 34 AM CDT documented as of this encounter Plan of Treatment Not on file documented as of this encounter Procedures Procedure Name Priority Date/Time Associated Diagnosis Comments PROCEDURE - RESULT 03/05/2016 12 :00 AM BINDERY OPERATOR PROCEDURE - RESULT 03/05/2016 12 :00 AM BINDERY OPERATOR documented in this encounter Results * PROCEDURE - RESULT (03/05/2016 12:00 AM BINDERY OPERATOR) Narrative 03/05/2016 12:00 AM BINDERY OPERATOR Ordered by an unspecified provider. Historical Provider Final Res ult * PROCEDURE - RESULT (03/05/2016 12:00 AM BINDERY OPERATOR) Narrative 03/05/2016 12:00 AM BINDERY OPERATOR Ordered by an unspecified provider. Historical Provider Final Res ult documented in this encounter Visit Diagnoses Not on filedocumented in this encounter Care Teams Roll Dough Divider Relationship Specialty Start Date End Date Tara Hudson MD [address] [address] PCP - General 12/17/16 11/02/19 Gege Herrera MD [address] [address] PCP - General Family Medicine 11/03/19 10/16/20 Rachel Friend NP [address] [address] PCP - General Family Medicine 10/17/20 01/09/23 Emily Clements NP [address] [place] [address] PCP - General Nurse Practitioner 01/10/23 11/25/23 Rachel Friend NP [address] [place] [address] PCP - General Family Medicine 11/26/23 documented as of this encounter
--- OUTSIDE RECORDS SUMMARY | 2024-07-13 01:53 | XMS_ITS | Clinical Summary ---
Author Organization [facility] Address [address] [place] [address] Care Team Providers Care Licensed Acupuncturist Name Role Phone Rachel Friend NP Primary Care Provider [phone] Allergies Active Allergy Reactions Criticality Noted Date [...] mouth daily 30 capsule 11 06/17/2024 Active nitroglycerin (NITROSTAT) 0.4 mg SL tabletIndicatio ns:Atypical chest pain Place 1 tablet (0.4 mg total) under the tongue every 5 (five) minutes as needed for chest pain May repeat dose q 5 min, up to 3 doses total 90 tablet 07/02/2024 Active Active Problems Problem Noted Date Diagnosed Date SVT (supraventricular tachycardia) 04/18/2023 Atypical chest pain 04/18/2023 Closed fracture of mandible 01/04/2023 Fall, initial encounter 12/03/2022 Open fracture of mandible 12/03/2022 Status post placement of implantable loop record er 07/17/2022 Overview (07/17/2022): Medtronic LNQ22 Loop Recorder. Dx; Syncope, Tachycardia, Palpitations. DOI 06/15/2022-Fleissner. Mirza. Ellie remote monitoring. Visit for wound check 06/22/2022 [...] Encounters Date Type Department Care Team Description 07/02/2024 7:45 AM CDT Ancillary Procedure [facility] Cardiology [address] [place] [phone] SVT (supraventricular tachycardia); Syncope and collapse; Atypical chest pain 07/02/2024 Results Follow-Up [facility] [address] [place] [address] Duglas Hassan MD 07/02/2024 Telephone [facility] [address] [place] [address] Duglas Hassan MD 06/24/2024 10:30 AM INCLUSION PARAEDUCATOR Ancillary Procedure [facility] [address] [place] [phone] Status post placement of implantable loop recorder (Primary Dx); Syncope and collapse; SVT (supraventricular tachycardia); Palpitations 06/24/2024 Telephone [facility] [address] [place] [address] Duglas Hassan MD 06/17/2024 10:00 AM INCLUSION PARAEDUCATOR Office Visit [facility] at [address] [place] [address] Duglas Hassan MD SVT (supraventricular tachycardia) (Primary Dx); Benign essential hypertension; Syncope and collapse; Atypical chest pain 06/15/2024 7:30 AM INCLUSION PARAEDUCATOR Ancillary Procedure [facility] [address] [place] [address] Status post placement of implantable loop recorder (Primary Dx); Syncope and collapse; SVT (supraventricular tachycardia); Palpitations 05/06/2024 9:45 AM INCLUSION PARAEDUCATOR Office Visit [facility] [address] [facility] [address] [place] [phone] Dallas Caruso MD Primary osteoarthritis of right knee; Trochanteric bursitis of left hip 05/04/2024 7:00 AM INCLUSION PARAEDUCATOR Ancillary Procedure [facility] [address] [place] [phone] Status post placement of implantable loop recorder [...] on file Legal Sex Female 1:32 AM INCLUSION PARAEDUCATOR Gender Identity Female 12/12/2018 8:34 AM CDT Sexual Orientation Straight 12/12/2018 8: 34 AM CDT Occupation Industry Job Start Date Job End Date retired Not on file Not on file Not on file Obstetrics History Last Filed Vital Signs Vital Sign Reading Time Taken Comments Blood Pressure 138/85 06/17/2024 12:29 PM INCLUSION PARAEDUCATOR Pulse 72 06/17/2024 10:06 AM INCLUSION PARAEDUCATOR Temperature 37.2 C (99 F) 01/10/2023 10:50 AM CDT Respiratory Rate 28 01/10/2023 11:10 AM CDT Oxygen Saturation 95% 06/17/2024 10:06 AM INCLUSION PARAEDUCATOR Inhaled Oxygen Concentration - - Weight 53.1 kg (117 lb) 06/17/2024 10:06 AM INCLUSION PARAEDUCATOR Height 165.1 cm (5' 5 ) 06/17/2024 10:06 AM INCLUSION PARAEDUCATOR Body Mass Index 19.47 06/17/2024 10:06 AM INCLUSION PARAEDUCATOR Plan of Treatment Health Maintenance Due Date [...] 019, 02/10/2018 Medical Devices Implanted Type Area Rubber Mill Tender Device Identifier Shelf Expiration Date Model / Serial / Lot Implantable Loop Recorder Implantable Loop Recorder Chest [employer] Infuse Kit Xs Graft Bone Rhbmp-2 Bovine Collagen Lumbar Taper [id number] - [id number] Implanted:Qty: 1 on 12/05/2022 by Ion Vergara MD at [facility] N/A: Ronald Medtronic Inc [id number] 04/21/2024 [id number] / / [id number] C [employer] Vitoss Void Filler Foam Pack Bioactive Substitute 2.5ml Bone 7518-2977 - [id number] Implanted:Qty: 1 on 12/05/2022 by Ion Vergara MD at [facility] N/A: Ronald [employer] [id number] 06/19/20233681-4780 / / [id number] Explanted Type Area Rubber Mill Tender Device Identifier Shelf Expiration Date Model / Serial / Lot [place] Craniomaxillofacial Leibinger [place] 2 2mm 5mm Self Tap Cross Pin Maxillofacial 50- - [id number] Implanted:Qty: 8 on 12/05/2022 by Ion Vergara MD at [facility] Explanted:Qty: 8 on 01/10/2023 at [facility] Mandible [place] Craniomaxillofacial 50- / / Elvia Craniomaxillofacial Leibinger [place] 2 Smart Lock 9 Hole Mandible Small Plate Bone [id number] - [id number] Implanted:Qty: 2 on 12/05/2022 by Ion Vergara MD at [facility] Explanted:Qty: 2 on 01/10/2023 at [facility] Mandible Elvia Craniomaxillofacial [id number] / / Elvia Craniomaxillofacial Leibinger [place] 2 Smartlock 2mm 8mm Self Drill Lock 50- - [id number] Implanted:Qty: 10 on 12/05/2022 by Ion Vergara MD at [facility] Explanted:Qty: 10 on 01/10/2023 at [facility] Mandible Elvia Craniomaxillofacial 50- / / [place] Craniomaxillofacial 16 Hole Maxillofacial 1.5mm Mini Plate Bone [id number] - [id number] Implanted:Qty: 1 on 12/05/2022 by Ion Vergara MD at [facility] Explanted:Qty: 1 on 01/10/2023 by Ion Vergara MD at [facility] Mandible Elvia Craniomaxillofacial [id number] / / [place] Craniomaxillofacial Leibinger [place] 2 2mm 8mm Lock Cross Pin Mandibular Screw [id number] - [id number] Implanted:Qty: 2 on 12/05/2022 by Ion Vergara MD at [facility] Explanted:Qty: 2 on 01/10/2023 at [facility] Mandible Elvia Craniomaxillofacial [id number] / / Elvia Craniomaxillofacial Leibinger [place] 2 2mm 10mm Lock Cross Pin Maxillofacial Screw [id number] - [id number] Implanted:Qty: 2 on 12/05/2022 by Ion Vergara MD at [facility] Explanted:Qty: 2 on 01/10/2023 at [facility] Mandible [place] Craniomaxillofacial [id number] / / Elvia Craniomaxillofacial Leibinger [place] 2 2mm 12mm Lock Cross Pin Maxillofacial Screw [id number] - [id number] Implanted:Qty: 2 on 12/05/2022 by Ion Vergara MD at [facility] Explanted:Qty: 2 on 01/10/2023 at [facility] Mandible Elvia Craniomaxillofacial [id number] / / Elvia Craniomaxillofacial Plate Mini 8mm Mndb [address] Condensed 2mm Screw Bone Ti [id number] - [id number] Implanted:Qty: 1 on 12/05/2022 by Ion Vergara MD at [facility] Explanted:Qty: 1 on 01/10/2023 at [facility] Mandible Elvia Craniomaxillofacial [id number] / / Procedures Procedure Name Priority Date/Time Associated Diagnosis Comments NM MPI SPECT (REST AND/OR STRESS) MULTIPLE STUDIES Schedule Routine, Read Routine (OP Routine) 07/02/2024 8:52 AM CDT SVT (supraventricular tachycardia) Syncope and collapse Atypical chest pain DEVICE CHECK - REMOTE Routine 06/24/2024 12:04 PM INCLUSION PARAEDUCATOR Syncope and collapse SVT (supraventricular tachycardia) Palpitations DEVICE CHECK - REMOTE Routine 06/15/2024 8:35 AM INCLUSION PARAEDUCATOR Syncope and collapse SVT (supraventricular tachycardia) Palpitations NC ARTHROCENTESIS ASPIR&/INJ MAJOR JT/BURSA W/O US Routine 05/06/2024 9:45 AM INCLUSION PARAEDUCATOR Primary osteoarthritis of right knee NC ARTHROCENTESIS ASPIR&/INJ MAJOR JT/BURSA W/O US Routine 05/06/2024 9:45 AM INCLUSION PARAEDUCATOR Trochanteric bursitis of left hip DEVICE CHECK - REMOTE Routine 05/06/2024 8:15 AM INCLUSION PARAEDUCATOR Syncope and collapse SVT (supraventricular tachycardia) Palpitations from Last 3 Months Results * NM MPI SPECT (Rest and/or Stress) Multiple Studies (07/02/2024 8:52 AM CDT) Anatomical Region Laterality Modality Body N/A Nuclear Medicine 07/02/2024 6:44 AM CDT Narrative 07/02/2024 11:42 AM CDT [facility] [address] [facility] [place] [address], [place] [address] [address] [facility] [address] [place] [address] [address] P:[phone] P:[phone] MPI Imaging Report Patient Name: KATINA VINSON : 1945 Study Date: 07/02/2024 6:44:12 AM Gender: F Tech: CAITLIN DOLAN Location: [facility] Provider: DUGLAS HASSAN Height(Cm): 165.1 BSA: Weight(Kg): 53.1 BMI: 19.48 Order Provider: DUGLAS HASSAN PHYSICIAN: Referring Physician: Rachel Friend NP. HCG Physician: Adebayo Hassan M.D. Interpreting Physician: Adebayo Hassan M.D. Stress Supervision: Adebayo Hassan M.D. PROCEDURES: Pharmacologic SPECT Report: Myocardial perfusion imaging with Tc99M Sestamibi SPECT at rest and stress post regadenoson (Lexiscan) infusion. INDICATIONS: Hypertension, Shortness Of Breath, High Cholesterol, I47.10 Supraventricular tachycardia, unspecified, R55 Syncope and collapse, and R07.89 Other chest pain. FINDINGS: Procedural Findings: One day rest/stress was used. Tc99m Sestamibi injected IV at rest was 8.7 millicuries 25.3 millicuries of Tc99M Sestamibi injected IV during Lexiscan stress Lexiscan 0.4mg given IV over 10 seconds with low level exercise: 1.2 MPH Patient had no symptoms during stress test. Baseline heart rate was 67 BPM Maximum Heart Rate Achieved was: 114 BPM Baseline blood pressure was 144/74 mmHg Post Stress Blood Pressure was 132/78 mmHg Termination: Protocol complete. Resting ECG: Normal sinus rhythm. Cannot r/o anterior infarct - age uncertain. Cannot r/o lateral infarct - age uncertain. Post ECG: No diagnostic ST changes. Arrhythmia: No arrhythmias seen. Perfusion Findings: Abnormal perfusion imaging - see below. Technical quality of study is excellent. Prone imaging was not performed. Left ventricle cavity size at rest is normal. Left ventricle cavity size with stress is unchanged. A TID of 0.79 was automatically calculated. defect 1: Size is medium. Severity is moderate to severe in intensity. Location of defect is in the mid anterolateral segment, apical anterior segment and apical lateral segment. Reversibility is full. Type of defect is ischemia. LV Function: Left ventricular ejection fraction is 49 %. There is mild LV dysfunction. PostStress LV Wall Motion: There is hypokinesis in the mid anterolateral segment, apical anterior segment, apical lateral segment and apical segment. CONCLUSIONS: Left ventricular ejection fraction is 49 %. There is mild LV dysfunction. There is hypokinesis in the mid anterolateral segment, apical anterior segment, apical lateral segment and apical segment. Size is medium. Severity is moderate to severe in intensity. Location of defect is in the mid anterolateral segment, apical anterior segment and apical lateral segment. Reversibility is full. Type of defect is ischemia. Myocardial perfusion imaging is abnormal. Negative EKG portion of stress test. Electronically Signed By: Duglas Hassan MD 07/02/2024 10:22:34 AM CDT Electronically Signed By: Duglas Hassan MD 07/02/2024 10:22:34 AM CDT Procedure Note Duglas Hassan MD - 07/02/2024 [facility] [address] [facility] [address], [place] [address] [address] [facility] [address] [place] [address] P:[phone] P:[phone] MPI Imaging Report Patient Name: KATINA VINSON : 1945 Study Date: 07/02/2024 6:44:12 AM Gender: F Tech: K[facility] Location: [facility] Provider: DUGLAS HASSAN Height(Cm): 165.1 BSA: Weight(Kg): 53.1 BMI: 19.48 Order Provider: DUGLAS HASSAN PHYSICIAN: Referring Physician: Rachel Friend NP. HCG Physician: Adebayo Hassan M.D. Interpreting Physician: Adebayo Hassan M.D. Stress Supervision: Adebayo Hassan M.D. PROCEDURES: Pharmacologic SPECT Report: Myocardial perfusion imaging with Tc99M Sestamibi SPECT at rest and stresspost regadenoson (Lexiscan) infusion. INDICATIONS: Hypertension, Shortness Of Breath, High Cholesterol, I47.10Supraventricular tachycardia, unspecified, R55 Syncope and collapse, and R07.89 Other chest pain. FINDINGS: Procedural Findings: One day rest/stress was used. Tc99m Sestamibi injected IV at rest was 8.7 millicuries 25.3 millicuries of Tc99M Sestamibi injected IV during Lexiscan stress Lexiscan 0.4mg given IV over 10 seconds with low level exercise: 1.2MPH Patient had no symptoms during stress test. Baseline heart rate was 67 BPM Maximum Heart Rate Achieved was: 114 BPM Baseline blood pressure was 144/74 mmHg Post Stress Blood Pressure was 132/78 mmHg Termination: Protocol complete. Resting ECG: Normal sinus rhythm. Cannot r/o anterior infarct - age uncertain. Cannotr/o lateral infarct - age uncertain. Post ECG: No diagnostic ST changes. Arrhythmia: No arrhythmias seen. Perfusion Findings: Abnormal perfusion imaging - see below. Technical quality of study isexcellent. Prone imaging was not performed. Left ventricle cavity size at rest is normal.Left ventricle cavity size with stress is unchanged. A TID of 0.79 was automaticallycalculated. defect 1: Size is medium. Severity is moderate to severe in intensity. Location ofdefect is in the mid anterolateral segment, apical anterior segment and apical lateralsegment. Reversibility is full. Type of defect is ischemia. LV Function: Left ventricular ejection fraction is 49 %. There is mild LVdysfunction. PostStress LV Wall Motion: There is hypokinesis in the mid anterolateral segment, apical anteriorsegment, apical lateral segment and apical segment. CONCLUSIONS: Left ventricular ejection fraction is 49 %. There is mild LVdysfunction. There is hypokinesis in the mid anterolateral segment, apical anteriorsegment, apical lateral segment and apical segment. Size is medium. Severity is moderate to severe in intensity. Location ofdefect is in the mid anterolateral segment, apical anterior segment and apical lateralsegment. Reversibility is full. Type of defect is ischemia. Myocardial perfusion imaging is abnormal. Negative EKG portion of stress test. Electronically Signed By: Duglas Hassan MD 07/02/2024 10:22:34 AM CDT Electronically Signed By: Duglas Hassan MD 07/02/2024 10:22:34 AM CDT us Duglas Hassan MD IMG NM PROCEDURES Final R esult * DEVICE CHECK - REMOTE (06/24/2024 12:04 PM INCLUSION PARAEDUCATOR) Anatomical Region Laterality Modality Other Narrative 07/02/2024 4:45 PM CDT Medtronic LNQ22 Loop Recorder. Dx; Syncope, Tachycardia, Palpitations. DOI 06/15/2022-Fleissner. Mirza. [facility] remote monitoring Routine ILR remote. Normal device function. Battery function-good Presenting rhythm: NSR Medications: Diltiazem CD/XR/XT 120 mg, lisinopril 40 mg Counters since 06/20/24. --2 Tachy - see below interpretations. --0 Lorne --0 Pause --1 Symptom - EGM shows symptom correlation suggestive of SVT with occasional PVCs for a duration of approximately 15 minutes --1 AF - EGM suggestive of AFib with RVR for approximately 4 minutes See scanned report. [facility] remote f/u 07/27/24. Rickey Andrade, MEGAN Duglas Hassan MD [facility] Final Result * DEVICE CHECK - REMOTE (06/15/2024 8:35 AM INCLUSION PARAEDUCATOR) Anatomical Region Laterality Modality Other Narrative 06/16/2024 10:24 AM INCLUSION PARAEDUCATOR Medtronic LNQ22 Loop Recorder. Dx; Syncope, Tachycardia, [...] remote f/u 07/27/24. Rickey Andrade RN us Duglas Hassan MD [facility] Final Result * NC ARTHROCENTESIS ASPIR&/INJ MAJOR JT/BURSA W/O US (05/06/2024 9:45 AM INCLUSION PARAEDUCATOR) Narrative Dallas Caruso MD - 05/06/2024 9:45 AM INCLUSION PARAEDUCATOR Dallas Caruso MD 05/06/2024 10:09 AM Large [...] MD IN CLINIC/BEDSIDE ORDERABLES Final Result * NC ARTHROCENTESIS ASPIR&/INJ MAJOR JT/BURSA W/O US (05/06/2024 9:45 AM INCLUSION PARAEDUCATOR) Narrative Dallas Caruso MD - 05/06/2024 9:45 AM INCLUSION PARAEDUCATOR Dallas Caruso MD 05/06/2024 10:09 AM Large [...] DEVICE CHECK - REMOTE (05/06/2024 8:15 AM INCLUSION PARAEDUCATOR) Anatomical Region Laterality Modality Other Narrative 06/02/2024 3:44 PM INCLUSION PARAEDUCATOR Medtronic REVEAL LinQ II implanted June 15, [...] events. 2) Continue to monitor remotely. Zion Leonajacky Device Green House Manager us Duglas Hassan MD [facility] Final Result from Last 3 Months Insurance MEDICARE FORMERLY [facility] MEDICARE [facility]MER[facility] MEDICARE BLUE CROSS MEDICARE SUPPLEMENT MEDICARE [facility]MERLY [facility] Advance Directives For more information, please contact: [phone] Documents on File Type Date Recorded Patient Stenographer Secretary Expl anation ADVANCE DIRECTIVE 08/21/2012 12:00 AM TJ PEREZ ADVANCE DIRECTIVE 08/21/2012 12:00 AM POWER OF SQL PROGRAMMER ANALYST FINANCIAL/MEDICAL * Full Code (Latest Code Status on File) Date Activated Date Inactivated Comments 12/04/2022 12:40 AM 12/07/2022 8:03 PM Care Teams Licensed Acupuncturist Relationship Specialty Start Date End Date Rachel Friend NP [address] [place], [place] [id number] PCP - General Family Medicine 11/26/23
--- OUTSIDE RECORDS SUMMARY | 2024-07-13 01:53 | XMS_ITS | Data Portability ---
Author Organization [facility] Address [address] [place] [address] Assessment No assessment recorded. Plan of Treatment Reminders Order Date Submit Date Provider Last Modified By Organization Details Last Modified Time Details Appointments None recorde d. Lab BMP, serum or plasma 2018 [facility], [address], [address], [place], [address], 9 03:46:46 lipid panel, serum 2018 [facility], [address], [address], [place], [address], 9 03:46:45 AST/SGO T (aspart ate aminotr ansfera se), serum or plasma 2018 019 [facility], [address], [address], [place], [address], 9 03:46:46 lipid panel, serum 2017 018 [facility], [address], [address], [place], [address], 8 12:34:54 CMP, serum or plasma 2017 018 [facility], [address], [address], [place], [address], 8 12:34:55 CBC w/ auto diff 2017 018 [facility], [address], [address], [place], [address], 8 12:34:55 TSH, serum or plasma 2017 018 [facility], [address], [address], [place], [address], 8 12:34:56 C-react vickie protein , quantit ative, serum or plasma 2017 018 [facility], [address], [address], [place], [address], 8 12:34:56 BMP, serum or plasma 2016 017 [facility], [address], [address], [place], [address], 7 06:23:16 lipid panel, serum 2016 017 [facility], [address], [address], [place], [address], 7 06:23:16 AST/SGO T (aspart ate aminotr ansfera se), serum or plasma 2016 017 [facility], [address], [address], [place], [address], 7 06:23:16 Referral hand surgeon referra l - Please contact patient for appt- patient gone from 9 through 12/05/19 19 2018 019 deandre Wong MD, [address] [facility] , [address], [place], [address], 9 10:59:33 hand surgeon referra bull - establi shed patient ; appt schedul ed 2017 018 TEJAL Wong MD, [address] [facility] , [address], [place], [address], 8 17:20:49 Procedures destruc tion of benign lesions (PROC) 2016 017 wandres Not available 7 15:20:01 Surgeries None recorde d. Imaging DEXA 2018 019 [email or web address], [address], [address], [place], [address], 9 09:24:08 MAMMO, screeni ng, digital , bilater al 2016 017 thoskinsma Not available 7 10:31:25 Medication Orders diclofe nac sodium 50 mg tablet, delayed release [address] [facility], [facility], [place], [address], 9 11:55:06 methoca rbamol 750 mg tablet 2018 [address]19 [address] [place], [address], 9 13:52:37 lisinop ril 10 mg tablet [address] [facility], [facility] [place], [address], 9 11:55:07 meclizi ne 25 mg tablet 2017 018 [address] [place], [address], 9 11:53:14 diclofe nac sodium 50 mg tablet, delayed release 2017 [address] [facility], [place], [address], 8 13:50:12 flutica sone propion ate 50 mcg/act uation nasal spray,s uspensi on 2017 018 INTERFACE [facility]259, [address] [place], [address], 8 13:58:13 lisinop ril 10 mg tablet [address] [facility], [facility], [place], [address], 8 13:50:11 diclofe nac sodium 50 mg tablet, delayed release 2016 017 INTERFACE [facility] [address], [place], [address], 7 11:22:41 flutica sone propion ate 50 mcg/act uation nasal spray,s uspensi on 2016 017 [facility], [address], [place], [id number], 8 12:51:05 lisinop ril 10 mg tablet 2016 017 INTERFACE [facility]), [address], [place], [address], 7 11:22:40 diclofe nac sodium 50 mg tablet, delayed release 2016 017 INTERFACE [facility] ([facility]), [address], [address], [place], [address], 7 11:55:36 lisinop ril 10 mg tablet 2016 017 INTERFACE [facility] ([facility]), [address], [address], [place], [address], 7 11:55:33 Patient TargetsNo targets recorded. Patient Instructions Encounter Date Encounter Id Patient Instructions Last Modified By Organization Details Last Modified Time 05/01/2016 [id number] high blood pressure: care instructions lleelpn Not available 05/01/2016 12:06:33 learning about high blood pressure lleelpn Not available 05/01/2016 12:06:33 11/08/2016 [id number] seborrheic keratosis: care instructions ssadlowskima Not available 11/08/2016 14:47:13 learning about breast cancer screening lenglema Not available 11/08/2016 11:25:15 managing your allergies: care instructions lenglema Not available 11/08/2016 11:25:15 seasonal allergies: care instructions lenglema Not available 11/08/2016 11:25:15 10/31/2017 [id number] high blood pressure: care instructions Not available 10/31/2017 13:50:08 learning about high blood pressure Not available 10/31/2017 13:50:08 11/10/2018 [id number] back care and preventing injuries: care instructions [...] total 206 mg/dL <200 high Not Available [employer] [address] [place], [address], 02/06/2017 06:23:15 02/06/20 17 02/06/2017 lipid panel , serum HDL cholesterol 88 mg/dL >50 normal Not Available [facility] [email or web address] [facility] [address] [place], [address], 02/06/2017 06:23:15 02/06/20 17 02/06/2017 lipid panel , serum triglyceride s 67 mg/dL <150 normal Not Available [address], [address], 02/06/2017 06:23:15 02/06/20 17 02/06/2017 lipid panel , serum LDL-choleste rol 103 mg/dL _(radha c) high Refer ence range : <100 Francisco able range <100 mg/dL for patie nts with CHD or diabe rylee and <70 mg/dL for diabe tic patie nts with known heart disea se. LDL-C is now calcu lated using the Celeste n-Hop kins calcu ebrnie n, which is a valid ated novel metho d provi ding abraham r accur acy than the Fried zeeshan equat ion in the estim ation of LDL-C . Celeste beltran SS et al. MADHURI. 2013; 310(1 9): 2061- 2068 (http ://ed ucati on.Qu estDi [employer]. com/f aq/FA Q164) Not Available [address], [address], 02/06/2017 06:23:15 02/06/20 17 02/06/2017 lipid panel , serum chol/HDLC ratio 2.3 (calc ) <5.0 normal Not Available [address], [address], 02/06/2017 06:23:15 02/06/20 17 02/06/2017 lipid panel , serum non HDL cholesterol 118 mg/dL _(radha c) <130 normal For patie nts with diabe rylee plus 1 major ASCVD risk facto r, treat ing to a non-H DL-C goal of <100 mg/dL (LDL- C of <70 mg/dL ) is consi dered a therli kayeo n. Not Available [address], [address], 02/06/2017 06:23:15 02/06/20 17 02/06/2017 AST/S GOT (aspa rtate amino trans feras e), serum or plasm a AST 19 U/L 10-35 normal Not Available [address] [address] [place], [address], 02/06/2017 06:23:16 02/06/20 17 02/06/2017 BMP, serum or plasm a glucose 94 mg/dL 65-99 normal Fasti ng refer ence inter adilene Not Available [facility] [address] [address] [place], [address], 02/06/2017 06:23:16 02/06/20 17 02/06/2017 BMP, serum or plasm a urea nitrogen (BUN) 13 mg/dL 7-25 normal Not Available [address] [address] [place], [address], 02/06/2017 06:23:16 02/06/20 17 02/06/2017 BMP, serum or plasm a creatinine 0.59 mg/dL 0.60-0 .93 low For patie nts >49 years of age, the refer ence limit for Creat inine is appro ximat marilou 13% highe r for peopl e ident ified as Afric an-Am rosmery n. Not Available [address] [address] [place], [address], 02/06/2017 06:23:16 02/06/20 17 02/06/2017 BMP, serum or plasm a eGFR non-afr. [place] 93 mL/mi n/1.7 3m2 > or = 60 normal Not Available [address] [address] [place], [address], 02/06/2017 06:23:16 02/06/20 17 02/06/2017 BMP, serum or plasm a eGFR 108 mL/mi n/1.7 3m2 > or = 60 normal Not Available [facility], [address], 02/06/2017 06:23:16 02/06/20 17 02/06/2017 BMP, serum or plasm a BUN/creatini ne ratio 22 (calc ) 6-22 normal Not Available [address], [address], 02/06/2017 06:23:16 02/06/20 17 02/06/2017 BMP, serum or plasm a sodium 133 mmol/ L 135-14 6 low Not Available [address], [address], 02/06/2017 06:23:16 02/06/20 17 02/06/2017 BMP, serum or plasm a potassium 4.6 mmol/ L 3.5-5. 3 normal Not Available [address], [address], 02/06/2017 06:23:16 02/06/2002/06/2017 BMP, serum or plasm a chloride 97 mmol/ L 98-110 low Not Available [address], [address], 02/06/2017 06:23:16 02/06/20 17 02/06/2017 BMP, serum or plasm a carbon dioxide 29 mmol/ L 20-31 normal Not Available [address], [address], 02/06/2017 06:23:16 02/06/2002/06/2017 BMP, serum or plasm a calcium 9.7 mg/dL 8.6-10 .4 normal Not Available [address], [address], 02/06/2017 06:23:16 02/11/20 18 02/11/2018 lipid panel , serum cholesterol, total 209 mg/dL <200 high Not Available [address], [address], 02/11/2018 12:34:54 02/11/20 18 02/11/2018 lipid panel , serum HDL cholesterol 87 mg/dL >50 normal Not Available [facility] [employer] [address], [address], 02/11/2018 12:34:54 02/11/20 18 02/11/2018 lipid panel , serum triglyceride s 105 mg/dL <150 normal Not Available [address], [address], 02/11/2018 12:34:54 02/11/20 18 02/11/2018 lipid panel [...] 2061- 2068 (http ://ed ucati on.Qu Gust[employer]. com/f aq/FA Q164) Not Available [address], [address], 02/11/2018 12:34:54 02/11/20 18 02/11/2018 lipid panel , serum chol/HDLC ratio 2.4 (calc ) <5.0 normal Not Available [address], [address], 02/11/2018 12:34:54 02/11/20 18 02/11/2018 lipid panel , serum non HDL cholesterol 122 mg/dL _(radha c) <130 normal For patie nts with diabe rylee plus 1 major ASCVD risk facto r, treat ing to a non-H DL-C goal of <100 mg/dL (LDL- C of <70 mg/dL ) is conschristine kayeo n. Not Available [address] [address] [place], [address], 02/11/2018 12:34:54 02/11/20 18 02/11/2018 CMP, serum or plasm a glucose 90 mg/dL 65-139 normal Non-f astin g refer ence inter adilene Not Available [address] [address] [place], [address], 02/11/2018 12:34:55 02/11/2002/11/2018 CMP, serum or plasm a urea nitrogen (BUN) 17 mg/dL 7-25 normal Not Available [address] [address] [place], [address], 02/11/2018 12:34:55 02/11/2002/11/2018 CMP, serum or plasm a creatinine 0.60 mg/dL 0.60-0 .93 normal For patie nts >49 years of age, the refer ence limit for Creat inine is appro ximat marilou 13% highe r for peopl e ident ified as Afric an-Am rosmery n. Not Available [address] [address] [place], [address], 02/11/2018 12:34:55 02/11/2002/11/2018 CMP, serum or plasm a eGFR non-afr. [place] 92 mL/mi n/1.7 3m2 > or = 60 normal Not Available [facility] [address] [address] [place], [address], 02/11/2018 12:34:55 02/11/20 18 02/11/2018 CMP, serum or plasm a eGFR 106 mL/mi n/1.7 3m2 > or = 60 normal Not Available [facility] [address] [address] [place], [address], 02/11/2018 12:34:55 02/11/20 18 02/11/2018 CMP, serum or plasm a BUN/creatini ne ratio NOT APPLIC ABLE (calc ) 6-22 Not Available [address], [address], 02/11/2018 12:34:55 02/11/20 18 02/11/2018 CMP, serum or plasm a sodium 133 mmol/ L 135-14 6 low Not Available [address], [address], 02/11/2018 12:34:55 02/11/20 18 02/11/2018 CMP, serum or plasm a potassium 4.7 mmol/ L 3.5-5. 3 normal Not Available [address], [address], 02/11/2018 12:34:55 02/11/2002/11/2018 CMP, serum or plasm a chloride 95 mmol/ L 98-110 low Not Available [address], [address], 02/11/2018 12:34:55 02/11/20 18 02/11/2018 CMP, serum or plasm a carbon dioxide 27 mmol/ L 20-32 normal Not Available [address], [address], 02/11/2018 12:34:55 02/11/20 18 02/11/2018 CMP, serum or plasm a calcium 9.8 mg/dL 8.6-10 .4 normal Not Available [facility] [address], [address], 02/11/2018 12:34:55 02/11/20 18 02/11/2018 CMP, serum or plasm a protein, total 7.2 g/dL 6.1-8. 1 normal Not Available [facility] [address], [address], 02/11/2018 12:34:55 02/11/20 18 02/11/2018 CMP, serum or plasm a albumin 4.6 g/dL 3.6-5. 1 normal Not Available [address], [address], 02/11/2018 12:34:55 02/11/20 18 02/11/2018 CMP, serum or plasm a globulin 2.6 g/dL_ (calc ) 1.9-3. 7 normal Not Available [address], [address], 02/11/2018 12:34:55 02/11/20 18 02/11/2018 CMP, serum or plasm a albumin/glob ulin ratio 1.8 (calc ) 1.0-2. 5 normal Not Available [address], [address], 02/11/2018 12:34:55 02/11/20 18 02/11/2018 CMP, serum or plasm a bilirubin, total 0.7 mg/dL 0.2-1. 2 normal Not Available [address], [address], 02/11/2018 12:34:55 02/11/20 18 02/11/2018 CMP, serum or plasm a alkaline phosphatase 64 U/L 33-130 normal Not Available [facility] [employer] [address], [address], 02/11/2018 12:34:55 02/11/20 18 02/11/2018 CMP, serum or plasm a AST 27 U/L 10-35 normal Not Available [address], [address], 02/11/2018 12:34:55 02/11/20 18 02/11/2018 CMP, serum or plasm a ALT 20 U/L 6-29 normal Not Available [address], [address], 02/11/2018 12:34:55 02/11/20 18 02/11/2018 CBC w/ auto diff white blood cell count 6.0 thous and/u L 3.8-10 .8 normal Not Available [address], [address], 02/11/2018 12:34:55 02/11/20 18 02/11/2018 CBC w/ auto diff red blood cell count 4.45 pollo on/uL 3.80-5 .10 normal Not Available [address], [address], 02/11/2018 12:34:55 02/11/20 18 02/11/2018 CBC w/ auto diff hemoglobin 14.3 g/dL 11.7-1 5.5 normal Not Available [address], [address], 02/11/2018 12:34:55 02/11/20 18 02/11/2018 CBC w/ auto diff hematocrit 42.2 % 35.0-4 5.0 normal Not Available [address], [address], 02/11/2018 12:34:55 02/11/20 18 02/11/2018 CBC w/ auto diff MCV 94.8 fL 80.0-1 00.0 normal Not Available [address], [address], 02/11/2018 12:34:55 02/11/20 18 02/11/2018 CBC w/ auto diff MCH 32.1 pg 27.0-3 3.0 normal Not Available [address], [address], 02/11/2018 12:34:55 02/11/20 18 02/11/2018 CBC w/ auto diff MCHC 33.9 g/dL 32.0-3 6.0 normal Not Available [address], [place], [address], 02/11/2018 12:34:55 02/11/20 18 02/11/2018 CBC w/ auto diff RDW 11.7 % 11.0-1 5.0 normal Not Available [address], [address], 02/11/2018 12:34:55 02/11/20 18 02/11/2018 CBC w/ auto diff platelet count 301 thous and/u L 140-40 0 normal Not Available [address], [address], 02/11/2018 12:34:55 02/11/2002/11/2018 CBC w/ auto diff MPV 9.9 fL 7.5-12 .5 normal Not Available [address], [address], 02/11/2018 12:34:55 02/11/20 18 02/11/2018 CBC w/ auto diff absolute neutrophils 3660 cells /uL 1500-7 800 normal Not Available [address], [address], 02/11/2018 12:34:55 02/11/2002/11/2018 CBC w/ auto diff absolute lymphocytes 1422 cells /uL 850-39 00 normal Not Available [address], [address], 02/11/2018 12:34:55 02/11/2002/11/2018 CBC w/ auto diff absolute monocytes 528 cells /uL 200-95 0 normal Not Available [address], [address], 02/11/2018 12:34:55 02/11/20 18 02/11/2018 CBC w/ auto diff absolute eosinophils 330 cells /uL 15-500 normal Not Available [address], [address], 02/11/2018 12:34:55 02/11/20 18 02/11/2018 CBC w/ auto diff absolute basophils 60 cells /uL 0-200 normal Not Available [address], [address], 02/11/2018 12:34:55 02/11/20 18 02/11/2018 CBC w/ auto diff neutrophils 61 % normal Not Available [address], [address], 02/11/2018 12:34:55 02/11/20 18 02/11/2018 CBC w/ auto diff lymphocytes 23.7 % normal Not Available [address], [address], 02/11/2018 12:34:55 02/11/2002/11/2018 CBC w/ auto diff monocytes 8.8 % normal Not Available [address], [address], 02/11/2018 12:34:55 02/11/2002/11/2018 CBC w/ auto diff eosinophils 5.5 % normal Not Available [address], [address], 02/11/2018 12:34:55 02/11/20 18 02/11/2018 CBC w/ auto diff basophils 1.0 % normal Not Available [address], [address], 02/11/2018 12:34:55 02/11/2002/11/2018 C-amadeo ctive prote in, quant itati ve, serum or plasm a C-reactive protein 0.7 mg/L <8.0 normal Not Available [address], [address], 02/11/2018 12:34:56 02/11/2002/11/2018 TSH, serum or plasm a TSH 3.66 mIU/L 0.40-4 .50 normal Not Available [address] [address] [place], [address], 02/11/2018 12:34:56 02/12/2002/12/2019 lipid panel , serum cholesterol, total 222 mg/dL <200 high Not Available [address], [address], 02/12/2019 03:46:45 02/12/2002/12/2019 lipid panel , serum HDL cholesterol 83 mg/dL >50 normal Not Available [facility] [employer] [address] [address] [place], [address], 02/12/2019 03:46:45 02/12/2002/12/2019 lipid panel , serum triglyceride s 94 mg/dL <150 normal Not Available [address], [address], 02/12/2019 03:46:45 02/12/2002/12/2019 lipid panel , serum [...] chan tics. com/f aq/FA Q164) Not Available [facility] [address] [address] [place], [address], 02/12/2019 03:46:45 02/12/2002/12/2019 lipid panel , serum chol/HDLC ratio 2.7 (calc ) <5.0 normal Not Available [address], [address], 02/12/2019 03:46:45 02/12/2002/12/2019 lipid panel , serum non HDL cholesterol 139 mg/dL _(radha c) <130 high For patie nts with diabe rylee plus 1 major ASCVD risk facto r, treat ing to a non-H DL-C goal of <100 mg/dL (LDL- C of <70 mg/dL ) is consi dered a thera peuti c optio n. Not Available [address], [address], 02/12/2019 03:46:45 02/12/2002/12/2019 AST/S GOT (aspa rtate amino trans feras e), serum or plasm a AST 17 U/L 10-35 normal Not Available [address], [address], 02/12/2019 03:46:45 02/12/2002/12/2019 BMP, serum or plasm a glucose 84 mg/dL 65-99 normal Fasti ng refer ence inter adilene Not Available [address], [address], 02/12/2019 03:46:46 02/12/2002/12/2019 BMP, serum or plasm a urea nitrogen (BUN) 14 mg/dL 7-25 normal Not Available [address], [address], 02/12/2019 03:46:46 02/12/2002/12/2019 BMP, serum or plasm a creatinine 0.59 mg/dL 0.60-0 .93 low For patie nts >49 years of age, the refer ence limit for Creat inine is appro ximat marilou 13% highe r for peopl e ident ified as Afric an-Am rosmery n. Not Available [facility] [address] [place], [address], 02/12/2019 03:46:46 02/12/2002/12/2019 BMP, serum or plasm a eGFR non-afr. [place] 92 mL/mi n/1.7 3m2 > or = 60 normal Not Available [address] [address] [place], [address], 02/12/2019 03:46:46 02/12/2002/12/2019 BMP, serum or plasm a eGFR 106 mL/mi n/1.7 3m2 > or = 60 normal Not Available [address], [address], 02/12/2019 03:46:46 02/12/2002/12/2019 BMP, serum or plasm a BUN/creatini ne ratio 24 (calc ) 6-22 high Not Available [address], [address], 02/12/2019 03:46:46 02/12/2002/12/2019 BMP, serum or plasm a sodium 136 mmol/ L 135-14 6 normal Not Available [address], [address], 02/12/2019 03:46:46 02/12/2002/12/2019 BMP, serum or plasm a potassium 4.6 mmol/ L 3.5-5. 3 normal Not Available [address], [address], 02/12/2019 03:46:46 02/12/2002/12/2019 BMP, serum or plasm a chloride 99 mmol/ L 98-110 normal Not Available [address], [address], 02/12/2019 03:46:46 02/12/2002/12/2019 BMP, serum or plasm a carbon dioxide 29 mmol/ L 20-32 normal Not Available [facility] [address] [place], [address], 02/12/2019 03:46:46 02/12/20 19 02/12/2019 BMP, serum or plasm a calcium 9.4 mg/dL 8.6-10 .4 normal Not Available [facility] [address] [address], [place], [address], 02/12/2019 03:46:46 05/28/19 17 05/28/2016 XR, lumba r spine No observ ation record ed. [email or web address] Not Available 2016 22:17:17 02/01/20 17 01/31/2017 MAMMO , phillipe katerina, digit al, bilat eral No observ ation record ed. [facility] (Imaging) [address] [facility] [address], [place], [address], 02/04/2017 17:27:11 02/06/20 17 01/31/2017 MAMMO , reggie costag, digit al, bilat eral, w/ CAD No observ ation record ed. [facility] Not Available 2016 21:20:18 02/11/20 18 02/10/2018 MAMMO , scree katerina, bilat eral No observ ation record ed. [address] (Imaging) [address] [facility] [address], [place], [address], 02/10/2018 19:00:20 11/29/19 19 11/21/2018 DEXA No observ ation record ed. [email or web address] n [facility] [address], [place], [address], 11/28/2018 16:57:21 12/20/1912/19/2018 XR, elbow , 3 or more view No observ ation record ed. [address] [facility] , [place], [address], 12/22/2018 18:22:19 01/17/2001/1601/16/2019 XR, elbow No observ ation record ed. [email or web address] [address] [place], [address], 01/16/2019 18:15:40 02/17/20 19 02/16/2019 MAMMO , scree katerina, bilat eral No observ ation record ed. [facility] [address], [place], [address], 02/16/2019 16:08:46 02/28/20 19 02/27/2019 XR, elbow , 3 or more view No observ ation record ed. [email or web address] [address] [place], [address], 02/27/2019 16:21:58 Result Notes None recorded. Problems Name Problem SNOMED Code Status Onset Date Resolution Date Notes Provider Name and Address Organization Details Recorded Time Disorder of bone and articula r cartilag e 354617921 Completed 201205/03/2012 Location : None;Sev erity: Moderate ;Progres s: Stable;A dded By: Tara Hudson;Add to Current Problems : NO Not Available [facility] 7 10:01:45 Malaise and fatigue 553541222 Active 2012 Location : None;Sev erity: Moderate ;Progres s: Stable;A dded By: Dinora Toth;Add to Current Problems : NO Not Available [facility] 7 10:01:45 Senile hyperker atosis 463863001 Completed 201308/30/2013 Location : None;Sev erity: Moderate ;Progres s: Stable;A dded By: Carrie Hammonds;Add to Current Problems : NO Not Available [facility] 7 10:01:45 Chronic pain [id number] Active 2012 Location : None;Sev erity: Moderate ;Progres s: Stable;A dded By: Lizz yMarck;Marcus d to Current Problems : YES Not Available [facility] 7 10:01:45 Pain in limb 57569521 Active 2014 Location : None;Sev erity: Moderate ;Progres s: Stable;A dded By: Christina Hdez; Add to Current Problems : YES Not Available [facility] 7 10:01:45 Screenin g for malignan t neoplasm of colon Active 2012 Location : None;Sev erity: Moderate ;Progres s: Stable;A dded By: Tara Hudson;Add to Current Problems : NO Not Available [facility] 7 10:01:45 Hearing loss [id number] Active 2013 Location : None;Sev erity: Moderate ;Progres s: Stable;A dded By: Tara Hudson;Add to Current Problems : NO Not Available [facility] 7 10:01:45 Female genital organ symptoms [id number] Completed 201408/24/2014 Location : None;Sev erity: Moderate ;Progres s: Stable;A dded By: Tara Hudson;Add to Current Problems : YES Not Available [facility] 7 10:01:45 Lumbosac ral spondylo sis without myelopat hy 64580729 Active 2012 Location : None;Sev erity: Moderate ;Progres s: Stable;A dded By: Tara Hudson;Add to Current Problems : YES Not Available [facility] 7 10:01:45 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 Active 2014 Location : None;Sev erity: Moderate ;Progres s: Stable;A dded By: Tara Hudson;Add to Current Problems : NO Not Available [facility] 7 10:01:45 Ganglion of joint [id number] Completed 201312/26/2013 Location : None;Sev erity: Moderate ;Progres s: Stable;A dded By: Tabatha Rivera i;A dd to Current Problems : NO Not Available [facility] 7 10:01:45 Enthesop athy of wrist AND/OR carpus [id number] Completed 201312/26/2013 Location : None;Sev erity: Moderate ;Progres s: Stable;A dded By: Tabatha Rivera i;Li dd to Current Problems : NO Not Available [facility] 7 10:01:45 Migraine without aura 69894630 Active 2012 Location : None;Sev erity: Moderate ;Progres s: Stable;A dded By: Tabatha Rivera i;Li dd to Current Problems : YES Not Available [facility] 7 10:01:46 Low back pain 063478738 Active 2014 Location : None;Sev erity: Moderate ;Progres s: Stable;A dded By: Tabatha Rivera i;Li dd to Current Problems : YES Not Available [facility] 7 10:01:46 Dyspnea 943019052 Completed 201308/30/2013 Location : None;Sev erity: Moderate ;Progres s: Stable;A dded By: Monica Hussein;Ad d to Current Problems : NO Not Available [facility] 7 10:01:46 Screenin g for osteopor osis Active 2015 Location : None;Sev erity: Moderate ;Progres s: Stable;A dded By: Sosa Rahman;Add to Current Problems : YES Not Available [facility] 7 10:01:46 Disorder of bone and articula r cartilag e 938935045 Active 2015 Location : None;Sev erity: Moderate ;Progres s: Stable;A dded By: Sosa Rahman;Add to Current Problems : NO Not Available [facility] 7 10:01:46 Benign essentia l hyperten kwadwo 5779768 Active 2014 Location : None;Sev erity: Moderate ;Progres s: Stable;A dded By: Mary Anne Cuadra;Add to Current Problems : YES Not Available [facility] 7 10:01:46 Spontane ous ecchymos is 673542867 Active 2015 Location : None;Sev erity: Moderate ;Progres s: Stable;A dded By: Mary Anne Cuadra;Add to Current Problems : YES Not Available [facility] 7 10:01:46 Problem Notes None recorded. Procedures Surgical History Date Name Laterality Status Provider Name and Address Organization Details Recorded Time 11/11/19 19 AIMS completed Alexa Etienne [place] [facility] 11/10/2018 11:01:06 11/11/19 19 SLUMS EXAM completed Alexa Etienne [place] [facility] 11/10/2018 11:01:06 11/09/19 17 Generic Procedure completed Tara Hudson [place] [facility] 11/08/2016 14:22:38 Back Surgery completed [facility] 05/01/2016 14:36:09 Eye Surgery completed [facility] 05/01/2016 14:36:27 Breast Surgery completed [facility] 11/05/2016 17:44:53 Dilation and Curettage completed [facility] 05/01/2016 14:36:38 Imaging Results Imaging Date Name Status LastModified by Organiz ation Details LastModified Time 05/28/2016 XR, lumbar spine completed magn Information not available 05/28/2016 22:17:17 01/31/2017 MAMMO, screening, digital, bilateral completed [facility] (Imaging) [address] [facility] [address] [place] [address], [address], 02/04/2017 17:27:11 01/31/2017 MAMMO, screening, digital, bilateral, w/ CAD completed [facility] Information not available 02/05/2017 21:20:18 02/10/2018 MAMMO, screening, bilateral completed [address] (Imaging) [address] [facility] [address], [place], [address], 02/10/2018 19:00:20 11/21/2018 DEXA completed [facility] [address] [facility] [address], [place], [address], 11/28/2018 16:57:21 12/19/2018 XR, elbow, 3 or more view completed [address] [place], [address], 12/22/2018 18:22:19 01/16/2019 XR, elbow completed [email or web address] [place], [address], 01/16/2019 18:15:40 02/16/2019 MAMMO, screening, bilateral completed [facility] (Imaging) [address], [place], [address], 02/16/2019 16:08:46 02/27/2019 XR, elbow, 3 or more view completed [email or web address] [place] [address] [place], [address], 02/27/2019 16:21:58 Procedure Notes None recorded. Medical Equipment None Reported. Allergies Allergen ID Allergen Name Allergen Category Reaction Reaction Severity Criticality Documentation Date Start Date Code Code System Note Provider Name and Address Organization Details Recorded Time 76159 erythromy jet medicatio n nausea moderate Not available 04/25/20162012 4053 RxNorm React ion: nause a;Sev erity : Moder ate; Comme nt: Aller gy Type: Adver se React ion; Not Available Not Available Not Available 31670 Biaxin medicatio n nausea moderate Not available 04/25/2016201272 9 RxNorm React ion: nause a;Sev erity : Moder ate; Comme nt: Aller gy Type: Adver se React ion; Not Available Not Available Not Available 36854 bisoprolo l / hydrochlo rothiazid e medicatio n Not available Not available Not available 04/25/2016201231 7 RxNorm Sever ity: Moder ate; Comme nt: DYSPH AGIA; Aller gy Type: Adver se React ion; Not Available Not Available Not Available 97625 Medrol medicatio n Not available Not available Not available 04/25/2016201270 2 RxNorm Sever ity: Moder ate; Comme nt: Aller gy Type: Adver se React ion; Not Available Not Available Not Available 55603 codeine phosphate medicatio n Not available Not available Not available 04/25/20162012 2672 RxNorm Sever ity: Moder ate; Comme nt: Aller gy Type: Adver se React ion; Not Available Not Available Not Available 39775 gabapenti n medicatio n Not available Not available Not available 05/01/2016 34985 RxNorm hair loss Not Available Not Available [...] 6 hr prn 12/11 completed RxNorm : 362096 ;Allow Substi tution : True Not Available Not Available Not Available prednisone 20 mg tablet 3 po q day for 3 days then 2 po q day for 3 days then 1 po q day for 4 days 03/21 completed RxNorm : 919896 ;Allow Substi tution : True Not Available Not Available Not Available Voltaren 75 mg tablet,del ayed release Take 1 tablet(s) by mouth bid 12/11 completed RxNorm : 942343 ;Allow Substi tution : True Not Available Not Available Not Available oxycodone- acetaminop hen 5 mg-325 mg tablet 11/10 completed Not Available Not Available Not Available Denavir 1 % topical cream Apply sufficien t amount to affected area q2h for 4 days while awake 04/27 completed RxNorm : 664046 ;Allow Substi tution : True Not Available [...] prn for migraine 11/14 completed RxNorm : 151826 ;Allow Substi tution : True Not Available Not Available Not Available fluticason e propionate 50 mcg/actuat ion nasal spray,susp ension USE 2 SPRAYS INTO EACH NOSTRIL EVERY DAY 2019 active Not Available Not Available Not Avai lable Tylenol Extra Strength 500 mg tablet Take 2 tabs (1000mg) daily 10/03 completed RxNorm : 838467 ;Allow Substi tution : True Not Available Not Available Not Available Restasis 0.05 % eye drops in a dropperett e Instill 1 drop(s) to each eye bid 10/31 completed RxNorm : 697732 ;Allow Substi tution : True Not Available [...] Updated DateTime 8 165.1 cm 19.5 kg/m2 24467.6 6 g 97.1 [degF] 98 % 98 [...] Updated DateTime 9 165.1 cm 19.3 kg/m2 28037.7 1 g 97 [degF] 99 % 99 [...] Details Last Updated DateTime 7 165.1 cm 14401.7 3 g 20.2 kg/m2 97.7 [degF] 98 % 98 % 70 /min 112 mm[Hg] 74 mm[Hg] Tabatha Gallegos ma [facility] 7 11:19:38 Date Recorded Body height Body mass index (BMI) Body weight Body temperature Oxygen saturation Oxygen saturation in Arterial blood by Pulse oximetry Heart rate Systolic blood pressure Diastolic blood pressure Provider Name and Address Organization Details Last Updated DateTime 165.1 cm 19.7 kg/m2 11710.6 g 97.2 [degF] 98 % 98 % 70 /min 112 mm[Hg] 80 mm[Hg] Tabatha Gallegos ma [facility] 7 10:10:07 Social History Question Answer Notes LastModified by Organizat ion Details LastModified Time Tobacco Smoking Status Never Smoker Tabatha Rainey [facility], [facility] 05/01/2016 09:47:08 What Was The Date [...] conjugate PCV 13 5 completed Not Available [facility] 04/25/2016 05:39:04 Influenza, split virus, trivalent, preservative 5 completed Not Available [facility] 04/25/2016 05:39:04 Tdap 0 completed Not Available [facility] 04/25/2016 05:39:04 zoster live 8 completed Not Available [facility] 04/25/2016 05:39:04 Influenza, split virus, trivalent, preservative 3 completed Not Available [facility] 04/25/2016 05:39:04 pneumococcal polysaccharide PPV23 0 completed Not Available [facility] 04/25/2016 05:39:05 Influenza, split virus, trivalent, preservative 2 completed Not Available [facility] 04/25/2016 05:39:05 Influenza, high-dose, trivalent, PF 7 completed Mica Hilton null, [place] [facility] 02/14/2017 12:54:13 pneumococcal polysaccharide PPV23 7 completed Mica [place] [facility] 02/14/2017 12:55:08 Influenza, high-dose, trivalent, PF 8 completed Suri Pearce MD Attn: Accounting[address] [place], [address], [place] [facility] 01/31/2018 18:02:58 Past Encounters Encounter ID Performer Location Encounter Start Date Encounter Closed Date Diagnosis/Indication Diagnosis SNOMED-CT Code Diagnosis ICD10 Code Diagnosis Note [id number] [facility] [address] [place] [address] [place], [place] [address] 05/01/2016 10:56:51 05/02/2016 16:39:27 Benign essential hypertension 3373570 I10 Osteoarthr itis of wrist 387770724 M19.031 M19.589 [id number] [facility] [address] [place] [facility] [address] 11/08/2016 09:54:23 11/08/2016 14:33:05 Osteoarthritis of wrist 148803912 M19.031 M19.032 Benign ess ential hypertension 7152281 I10 Allergic r hinitis caused by pollen 79895455 J30.1 Screening for malignant neoplasm of breast 004541697 Z12.39 Senile hyperkeratosis 39 4417965 L82.1 [id number] [facility] [address] [place] [address] [place] [address] 10/31/2017 12:18:48 11/01/2017 12:56:39 Benign essential hypertension 8787065 I10 Fatigue 33730327 R53.83 Osteoarthr itis of wrist 457099170 M19.031 M19.032 Allergic r hinitis caused by pollen 70964697 J30.1 Vertigo 068723077 R42 Pain of left hand 250866 6305 86011 M79.642 and ganglions of right hand [id number] [facility] [address] [place] [place] [address] 11/10/2018 10:37:45 11/10/2018 12:16:24 Adult health examination 054791175 Z00.00 Benign ess ential hypertension 9608176 I10 Osteoarthr itis of wrist 202505694 M19.031 M19.032 Low back pain 819012347 M54.5 Ganglion of wrist 238268 009 M67.431 Osteopenia 068741263 M85 .9 Health Concerns Section Related Observation LastModified by Organization Detai ls LastModified Time None Recorded Concern Status LastModified by Organization Details LastModified Time None Recorded Advance Directives Directive None Recorded Payers Encounter Date Sequence Insurance Name Policy Number Policy Jacques Covered Member ID Jacques Member ID Guarantor Name 05/01/2016 1 [place] Katinasuri Vinson [id number] Katina Vinson 05/01/2016 2 COMBINED INSURANCE - [employer] (MEDICARE SUPPLEMENT) PLAN F Katina Vinson [id number] Katina Vinson 11/08/2016 1 [place] Katina Vinson [id number] Katina Vinson 11/08/2016 2 COMBINED INSURANCE - [employer]URANCE ADMINISTRATORS (MEDICARE SUPPLEMENT) PLAN F Katina Vinson [id number] Katina Vinson 10/31/2017 1 [place] Katina Vinson [id number] Katina Vinson 10/31/2017 2 COMBINED INSURANCE - [employer]URANCE ADMINISTRATORS (MEDICARE SUPPLEMENT) PLAN F Katina Vinson [id number] Katina Vinson 11/10/2018 2 COMBINED INSURANCE - [employer]ANCE ADMINISTRATORS (MEDICARE SUPPLEMENT) PLAN F Katina Vinson [id number] Katina Vinson 11/10/2018 1 [place] Katina Vinson [id number] Katina Vinson Notes Date Note Type Note [...]
--- OUTSIDE RECORDS SUMMARY | 2024-07-13 01:53 | XMS_ITS | Clinical Summary ---
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 [employer] Not on file Not on file Not on file Last Filed Vital Signs Vital Sign Reading Time Taken Comments Blood Pressure 148/89 05/09/2022 11:53 AM COMMUNITY ASSOCIATE Pulse 93 05/09/2022 11:53 AM COMMUNITY ASSOCIATE Temperature 36.6 C (97.8 F) 05/09/2022 11:53 AM COMMUNITY ASSOCIATE Respiratory Rate 18 04/20/2022 8:01 AM COMMUNITY ASSOCIATE Oxygen Saturation 99% 04/20/2022 8:01 AM COMMUNITY ASSOCIATE Inhaled Oxygen Concentration - - Weight 51.9 kg (114 lb 6.4 oz) 05/09/2022 11:53 AM COMMUNITY ASSOCIATE Height 160 cm (5' 3 ) 05/09/2022 11:53 AM COMMUNITY ASSOCIATE Body Mass Index 20.27 05/09/2022 11:53 AM COMMUNITY ASSOCIATE Plan of Treatment Health Maintenance Due [...] age to complete this topic Insurance MEDICARE [facility] Care Teams Patient Ambassador Relationship Specialty Start Date End Date Rachel Friend FNP PCP - General Nurse Practitioner Family 07/20/21
--- OUTSIDE RECORDS SUMMARY | 2024-07-13 01:53 | XMS_ITS | Continuity of Care Document ---
Author Organization [facility] Address [address] [place] [address] Phone Care Team Providers Care Hand Printed Circuit Board Assembler Name Role Phone Nabor Ceja MD Unavailable [...] Copied on Encounter OFFICE/OUTPA TIENT VISIT NEW [facility], [address] [facility] [address], [place], [address], tel:[phone] [facility] My back and right ankle hurt alot (chief complaint) Body mass index (BMI) 19 or less, adultLow back painPeroneal tendinitis of right lower extremitySpondylo listhesis at L4-L5 level 6 Brenna Tomlin. [address] [facility] [place], [place], [address] . tel:[phone] Referring Provider: Tara Hudson, [address] [place], [address] . tel:[phone] Family History Family Member Type Diagnosis Age At Onset Father Problem (finding) hypertension Father Problem (finding) depression Payers Payer name Insurance type Covered green party ID Ronnie andujar(s) Medicare E2 OT [id number] Combined Insurance OT [id number] Social History Type Description Quantity Date Captured [...]
--- OUTSIDE RECORDS SUMMARY | 2024-07-13 01:53 | XMS_ITS | Clinical Summary ---
Author Organization [email or web address] [id number] [facility] Address [address] [place] [address] Care Team Providers Care Fruit And Vegetable Packer Name Role Phone Emily Tejada MD Primary [...] Comments Blood Pressure 132/82 05/31/2022 11:05 AM INNOVATION MANAGER Pulse 100 12/22/2021 12:26 PM CDT Temperature 36.7 C (98.1 F) 01/02/2022 10:54 AM CDT Respiratory Rate 16 01/02/2022 10:54 AM CDT Oxygen Saturation 100% 12/22/2021 12:26 PM CDT Inhaled Oxygen Concentration - - Weight 52.7 kg (116 lb 3.2 oz) 02/05/2023 11:35 AM CDT Height 160 cm (5' 3 ) 05/31/2022 10:59 AM INNOVATION MANAGER Body Mass Index 20.58 05/31/2022 10:59 AM INNOVATION MANAGER Plan of Treatment Health Maintenance Due Date [...] 11/12/2018, 2018 Medical Devices Implanted Type Area Metal Mockup Maker Device Identifier Shelf Expiration Date Model / Serial / Lot Infuse Protein Kit Lg Ii [id number] - Sna Implanted:Qty: 1 on 12/19/2021 by Biju Littlejohn MD at [facility] N/A: Spine Lumbar [employer] 03/21/2023 [id number] / NA / [id number] Description:CHECKED BY LG ON 12.20.21 REQ#[id number] Stimulan Caso4 Kt 10ml 620-010 - [id number] Implanted:Qty: 1 on 12/19/2021 by Biju Littlejohn MD at [facility] [employer] 10/19/2024 620-010 / / [id number] Description:CHECKED BY LG ON 12.20.21 REQ#[id number] Spacer Catalyft Pl 7mm Xpndble Strt [id number] - [id number] Implanted:Qty: 1 on 12/19/2021 by Biju Littlejohn MD at [facility] N/A: Spine Lumbar [employer] 10/30/2029 [id number] / / [id number] Hemostatic Surgiflo 8ml W/ Thrombin 2994 - Sn/A Implanted:Qty: 1 on 12/19/2021 by Biju Littlejohn MD at [facility] Hemostatic N/A: Spine Lumbar [employer] 01/19/2023 2994 / N/A / [id number] Hemostatic Surgiflo 8ml W/ Thrombin 2994 - [id number] Implanted:Qty: 1 on 12/19/2021 by Biju Littlejohn MD at [facility] Hemostatic N/A: Spine Lumbar J[employer] 09/19/2022 2994 / / [id number] Cassandra Spacer [id number]-N Tas 7 Dg Lg 10mm Implanted:Qty: 1 on 12/19/2021 by Biju Littlejohn MD at [facility] Other N/A: Spine Lumbar [employer] 07/04/2024 [id number] / / [id number] Description:1X ADD Cassandra Spacer [id number]-N Tas 7dg Std 10mm Implanted:Qty: 1 on 12/19/2021 by Biju Littlejohn MD at [facility] Other N/A: Spine Lumbar [employer] [id number] / / [id number] Description:1X ADD Terence Cp4 Str Ti 5.2g988uc [id number] - [id number] Implanted:Qty: 1 on 12/19/2021 by Biju Littlejohn MD at [facility] Terence N/A: Spine Lumbar [employer] [id number] / / Description:load no: 227 227 05 sterilized: [id number] Screw Cdh 7.5x35mm 5.5/6.0 Mas Cc [id number] - [id number] Implanted:Qty: 3 on 12/19/2021 by Biju Littlejohn MD at [facility] Screw N/A: Spine Lumbar [employer] [id number] / / Description:load no: 227 227 05 sterilized: [id number] Screw Cdh 7.5x40mm 5.5/6.0 Mas Cc [id number] - [id number] Implanted:Qty: 2 on 12/19/2021 by Biju Littlejohn MD at [facility] N/A: Spine Lumbar [employer] [id number] / / Description:load no: 227 227 05 sterilized: [id number] Screw [id number] 5.5 Mas 7.5x25cc Implanted:Qty: 1 on 12/19/2021 by Biju Littlejohn MD at [facility] N/A: Spine Lumbar [employer] 11/10/2027 [id number] / / [id number] Description:1X ADD Screw [id number] Bs Cnmas 8.5x80 T/C Implanted:Qty: 2 on 12/19/2021 by Biju Littlejohn MD at [facility] N/A: Spine Lumbar [employer] 12/19/2021 [id number] / / [id number] Description:1X ADD Screw Endoskeleton 5.5x25mm Tas 3295-0065 - [id number] Implanted:Qty: 3 on 12/19/2021 by Biju Littlejohn MD at [facility] N/A: Spine Lumbar [employer] [id number] / / Description:load [id number] da te: 12/19/21 YANCI REQ#[id number] Screw Solera 5.5/6.0 Breakoff [id number] - [id number] Implanted:Qty: 12 on 12/19/2021 by Biju Littlejohn MD at [facility] N/A: Spine Lumbar [employer] [id number] / / Description:load no: 227 227 05 sterilized: [id number] Screw Cdh 5.5x45mm 5.5/6.0 Mas Cc [id number] - [id number] Implanted:Qty: 4 on 12/19/2021 by Biju Littlejohn MD at [facility] N/A: Spine Lumbar [employer] [id number] / / Description:load no: 227 227 05 sterilized: [id number] [place] Dbm Dbf 6ml [id number] - [id number] Implanted:Qty: 1 on 12/19/2021 by Biju Littlejohn MD at [facility] N/A: Spine Lumbar [employer] 11/10/2023 [id number] / [id number] / Description:CHECKED BY LG ON 12.20.21 REQ#[id number] [place] Dbm Dbf 6ml [id number] - [id number] Implanted:Qty: 1 on 12/19/2021 by Biju Littlejohn MD at [facility] N/A: Spine Lumbar [employer] 11/10/2023 [id number] / [id number] / Description:CHECKED BY LG ON 12.20.21 REQ#[id number] Cassandra Spacer [id number] Tas 12d Std 12mm Implanted:Qty: 1 on 12/19/2021 by Biju Littlejohn MD at [facility] N/A: Spine Lumbar [employer] [id number] / / [id number] Description:1X ADD Insurance MEDICARE PART A AND B [facility] Advance Directives For more information, please contact: [phone] Documents on File Type Date Recorded 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
--- OUTSIDE RECORDS SUMMARY | 2024-07-13 01:53 | XMS_ITS | Referral Summary ---
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 Name Role Phone Rachel Friend NP Primary Care Provider [phone] Encounters Date Type Department Care Team Description 07/02/2024 Results Follow-Up [facility] [address] [place] [address] [place] [phone] Duglas Hassan MD 07/02/2024 Telephone [facility] [address] [place] [address] [place] [phone] Duglas Hassan MD 07/02/2024 7:45 AM CDT Ancillary Procedure [facility] [address] [place] [address] [place] [phone] SVT (supraventricular tachycardia); Syncope and collapse; Atypical chest pain 06/24/2024 10:30 AM ANCHORMAN Ancillary Procedure [facility] [address] [place] [address] [place] [phone] Status post placement of implantable loop recorder (Primary Dx); Syncope and collapse; SVT (supraventricular tachycardia); Palpitations 06/24/2024 Telephone [facility] [address] [place] [address] [place] [phone] Duglas Hassan MD 06/17/2024 10:00 AM ANCHORMAN Office Visit [facility] at [address] [place] [phone] Duglas Hassan MD SVT (supraventricular tachycardia) (Primary Dx); Benign essential hypertension; Syncope and collapse; Atypical chest pain 06/15/2024 7:30 AM ANCHORMAN Ancillary Procedure [facility] [address] [place] [phone] Status post placement of implantable loop recorder (Primary Dx); Syncope and collapse; SVT (supraventricular tachycardia); Palpitations 05/06/2024 9:45 AM ANCHORMAN Office Visit [facility] [address] [place] [phone] Dallas Caruso MD Primary osteoarthritis of right knee; Trochanteric bursitis of left hip 05/04/2024 7:00 AM ANCHORMAN Ancillary Procedure [facility] [address] [place] [phone] Status post placement of implantable loop recorder [...] to 3 doses total 90 tablet 07/02/2024 6 Active Active Problems Problem Noted Date Diagnosed Date SVT (supraventricular tachycardia) 04/18/2023 Atypical chest pain 04/18/2023 Closed fracture of mandible 01/04/2023 Fall, initial encounter 12/03/2022 Open fracture of mandible 12/03/2022 Status post placement of implantable loop record er 07/17/2022 Overview (07/17/2022): Medtronic LNQ22 Loop Recorder. Dx; Syncope, Tachycardia, Palpitations. DOI 06/15/2022-Fleissner. Mirza. [facility] remote monitoring. Visit for wound check 06/22/2022 [...] on file Legal Sex Female 1:32 AM ANCHORMAN Gender Identity Female 12/12/2018 8:34 AM CDT Sexual Orientation Straight 12/12/2018 8: 34 AM CDT Occupation Industry Job Start Date Job End Date retired Not on file Not on file Not on file Last Filed Vital Signs Vital Sign Reading Time Taken Comments Blood Pressure 138/85 06/17/2024 12:29 PM ANCHORMAN Pulse 72 06/17/2024 10:06 AM ANCHORMAN Temperature 37.2 C (99 F) 01/10/2023 10:50 AM CDT Respiratory Rate 28 01/10/2023 11:10 AM CDT Oxygen Saturation 95% 06/17/2024 10:06 AM ANCHORMAN Inhaled Oxygen Concentration - - Weight 53.1 kg (117 lb) 06/17/2024 10:06 AM ANCHORMAN Height 165.1 cm (5' 5 ) 06/17/2024 10:06 AM ANCHORMAN Body Mass Index 19.47 06/17/2024 10:06 AM ANCHORMAN Plan of Treatment Not on file Medical Devices Implanted Type Area Community Marketing Manager Device Identifier Shelf Expiration Date Model / Serial / Lot Implantable Loop Recorder Implantable Loop Recorder Chest Medtronic Inc Infuse Kit Xs Graft Bone Rhbmp-2 Bovine Collagen Lumbar Taper [id number] - [id number] Implanted:Qty: 1 on 12/05/2022 by Ion Vergara MD at [facility] N/A: Chin Medtronic Inc [id number] 04/21/2024 [id number] / / [id number] [employer] Vitoss Void Filler Foam Pack Bioactive Substitute 2.5ml Bone 0824-8349 - [id number] Implanted:Qty: 1 on 12/05/2022 by Ion Vergara MD at [facility] N/A: Chin [employer] [id number] 06/19/2023 [id number] / / [id number] Explanted Type Area Community Marketing Manager Device Identifier Shelf Expiration Date Model / Serial / Lot Elvia Craniomaxillofacial Leibinger [place] 2 2mm 5mm Self Tap Cross Pin Maxillofacial 50- - [id number] Implanted:Qty: 8 on 12/05/2022 by Ion Vergara MD at [facility] Explanted:Qty: 8 on 01/10/2023 at [facility] [place] Mandible [place] Craniomaxillofacial 50- / / [place] Cran[employer]axillofacial Leibinger [place] 2 Smart Lock 9 Hole Mandible Small Plate Bone [id number] - [id number] Implanted:Qty: 2 on 12/05/2022 by Ion Vergara MD at [facility] Explanted:Qty: 2 on 01/10/2023 at [facility] [place] Mandible Elvia Craniomaxillofacial [id number] / / [place] Craniomaxillofacial Leibinger [place] 2 Smartlock 2mm 8mm Self Drill Lock [id number] - [id number] Implanted:Qty: 10 on 12/05/2022 by Ion Vergara MD at [facility] Explanted:Qty: 10 on 01/10/2023 at [facility] Mandible Elvia Craniomaxillofacial [id number] / / [place] Craniomaxillofacial 16 Hole Maxillofacial 1.5mm Mini Plate Bone [id number] - [id number] Implanted:Qty: 1 on 12/05/2022 by Ion Vergara MD at [facility] Explanted:Qty: 1 on 01/10/2023 by Ion Vergara MD at [facility] Mandible Elvia Craniomaxillofacial [id number] / / Elvia Craniomaxillofacial Leibinger [place] 2 2mm 8mm Lock Cross Pin Mandibular Screw [id number] - [id number] Implanted:Qty: 2 on 12/05/2022 by Ion Vergara MD at [facility] Explanted:Qty: 2 on 01/10/2023 at [facility] Mandible [place] Craniomaxillofacial [id number] / / Elvia Craniomaxillofacial Leibinger [place] 2 2mm 10mm Lock Cross Pin Maxillofacial Screw [id number] - [id number] Implanted:Qty: 2 on 12/05/2022 by Ion Vergara MD at [facility] Explanted:Qty: 2 on 01/10/2023 at [facility] [place] Mandible [place] Craniomaxillofacial [id number] / / Elvia Craniomaxillofacial Leibinger [place] 2 2mm 12mm Lock Cross Pin Maxillofacial Screw [id number] - [id number] Implanted:Qty: 2 on 12/05/2022 by Ion Vergara MD at [facility] Explanted:Qty: 2 on 01/10/2023 at [facility] [place] Mandible Elvia Craniomaxillofacial [id number] / / Elvia Craniomaxillofacial Plate Mini 8mm Mndb [address] Condensed 2mm Screw Bone Ti [id number] - [id number] Implanted:Qty: 1 on 12/05/2022 by Ion Vergara MD at [facility] Explanted:Qty: 1 on 01/10/2023 at [facility] [place] Mandible Elvia Craniomaxillofacial [id number] / / Procedures Procedure Name Priority Date/Time Associated Diagnosis Comments NM MPI SPECT (REST AND/OR STRESS) MULTIPLE STUDIES Schedule Routine, Read Routine (OP Routine) 07/02/2024 8:52 AM CDT SVT (supraventricular tachycardia) Syncope and collapse Atypical chest pain DEVICE CHECK - REMOTE Routine 06/24/2024 12:04 PM ANCHORMAN Syncope and collapse SVT (supraventricular tachycardia) Palpitations DEVICE CHECK - REMOTE Routine 06/15/2024 8:35 AM ANCHORMAN Syncope and collapse SVT (supraventricular tachycardia) Palpitations NC ARTHROCENTESIS ASPIR&/INJ MAJOR JT/BURSA W/O US Routine 05/06/2024 9:45 AM ANCHORMAN Primary osteoarthritis of right knee NC ARTHROCENTESIS ASPIR&/INJ MAJOR JT/BURSA W/O US Routine 05/06/2024 9:45 AM ANCHORMAN Trochanteric bursitis of left hip DEVICE CHECK - REMOTE Routine 05/06/2024 8:15 AM ANCHORMAN Syncope and collapse SVT (supraventricular tachycardia) Palpitations from Last 3 Months Results * NM MPI SPECT (Rest and/or Stress) Multiple Studies (07/02/2024 8:52 AM CDT) Anatomical Region Laterality Modality Body N/A Nuclear Medicine 07/02/2024 6:44 AM CDT Narrative 07/02/2024 11:42 AM CDT [facility] Cardiology [address] [facility] [address] [phone] [facility] [address] [place] [address], [place] [address] P:[phone] P:[phone] MPI Imaging Report Patient Name: KATINA VINSON : 1945 Study Date: 07/02/2024 6:44:12 AM Gender: F Tech: KELSI FREEMAN [facility] Location: [facility] Provider: DUGLAS HASSAN Height(Cm): [...] Procedure Note Duglas Hassan MD - 07/02/2024 [facility] Cardiology [address] [facility] [address], [place] [address] [address] [facility] [address], [place] [address] P:[phone] P:[phone] MPI Imaging Report Patient Name: KATINA VINSON : 1945 Study Date: 07/02/2024 6:44:12 AM Gender: F Tech: KELSIMCLAREN [facility] Location: [facility] Provider: DUGLAS HASSAN Height(Cm): [...] DEVICE CHECK - REMOTE (06/24/2024 12:04 PM ANCHORMAN) Anatomical Region Laterality Modality Other Narrative 07/02/2024 [...] [facility] remote f/u 07/27/24. Rickey Andrade RN Duglas Hassan MD CV CARDIAC SERVICES PROCE DURES Final Result * DEVICE CHECK - REMOTE (06/15/2024 8:35 AM ANCHORMAN) Anatomical Region Laterality Modality Other Narrative 06/16/2024 10:24 AM ANCHORMAN Medtronic LNQ22 Loop Recorder. Dx; Syncope, Tachycardia, Palpitations. DOI 06/15/2022-Angelica. Hermes. [facility] remote monitoring Routine IL[facility] remote. Normal device function. Battery function-good Presenting rhythm: NSR Medications: Lisinopril 40 mg Counters since last scheduled transmission on 05/04/24. --[address]/SVT with one episode of NSVT for 5 beats as well --0 Lorne --0 Pause --0 Symptom --0 AF See scanned report. [facility] remote f/u 07/27/24. Rickey Andrade RN Duglas aHssan MD CV CARDIAC SERVICES PROCE DURES Final Result * NC ARTHROCENTESIS ASPIR&/INJ MAJOR JT/BURSA W/O US (05/06/2024 9:45 AM ANCHORMAN) Narrative Dallas Caruso MD - 05/06/2024 9:45 AM ANCHORMAN Dallas Caruso MD 05/06/2024 10:09 AM Large [...] MAJOR JT/BURSA W/O US (05/06/2024 9:45 AM ANCHORMAN) Narrative Dallas Caruso MD - 05/06/2024 9:45 AM ANCHORMAN Dallas Caruso MD 05/06/2024 10:09 AM Large [...] DEVICE CHECK - REMOTE (05/06/2024 8:15 AM ANCHORMAN) Anatomical Region Laterality Modality Other Narrative 06/02/2024 3:44 PM ANCHORMAN Medtronic REVEAL LinQ II implanted June 15, [...] Continue to monitor remotely. [place] Tavera Device Radio Equipment Repairer us Duglas Hassan MD CV CARDIAC SERVICES PROCE [facility] Final Result from Last 3 Months Insurance MEDICARE [facility] MEDICARE [facility] MEDICARE BLUE CROSS MEDICARE SUPPLEMENT MEDICARE [facility] Advance Directives For more information, please contact: [phone] Documents on File Type Date Recorded Patient Slate Cutter Expl anation ADVANCE DIRECTIVE 08/21/2012 12:00 AM TJ Leger WILL ADVANCE DIRECTIVE 08/21/2012 12:00 AM [employer]MEDICAL * Full Code (Latest Code Status on File) Date Activated Date Inactivated Comments 12/04/2022 12:40 AM 12/07/2022 8:03 PM Care Teams Vertical Boring Mill Operator Relationship Specialty Start Date End Date Rachel Friend NP [address] [place] [address] PCP - General Family Medicine 11/26/23
[2024-07-13 07:47] LABS: Basophils Absolute Auto 0.1 K/mm3 (0.0-0.1); Basophils Percent Auto 0.9 % (0.2-1.2); Eosinophils Absolute Auto 0.2 K/mm3 (0-0.3); Eosinophils Percent Auto 4.3 % (0-4.4); Hematocrit 43.7 % (37.0-47.0); Hemoglobin 14.7 g/dL (12.0-15.0); Immature Granulocyte Absolute 0.02 K/mm3 (0.00-0.031); Immature Granulocyte Percent A 0.4 % (0-0.5); Lymphocytes Absolute Auto 0.92 K/mm3 (0.9-3.2); Lymphocytes Percent Auto 17.2 % (18.3-44.2); Mean Corpuscular HGB Conc 33.6 g/dl (32-36); Mean Corpuscular Hemoglobin 32.2 pg (26-34); Mean Corpuscular Volume 95.6 fl (80-100); Mean Platelet Volume 8.5 fl (7.4-10.4); Monocytes Absolute Auto 0.5 K/mm3 (0.1-0.6); Monocytes Percent Auto 9.9 % (2.6-8.5); Neutrophils Absolute Auto 3.6 K/mm3 (1.3-6.7); Neutrophils Percent Auto 67.3 % (45.5-73.1); Platelet Count Result 271 k/mm3 (150-375); Red Blood Count 4.57 M/mm3 (4.2-5.4); White Blood Count 5.3 K/mm3 (4.5-10.0)
[2024-07-13 07:58] LABS: Anion Gap 7 mmol/L (4-12); Blood Urea Nitrogen 19 mg/dL (7-17); Calcium 9.8 mg/dL (8.4-10.2); Carbon Dioxide 27 mmol/L (22-30); Chloride 97 mmol/L (98-107); Estimated CRCL calculation 52 ml/min; Estimated Glomerular Filt Rate > 60; Glucose 95 mg/dL (65-110); Potassium 4.7 mmol/L (3.4-5.0); Sodium 131 mmol/L (137-145)
--- NOTE | 2024-07-13 08:56 | WPDHPUPDATE1 ---
History and Physical Update Update Date/Time: 07/13/24 08:36 History and Physical has been reviewed, including an updated exam of the patient. There are NO changes in the patient's condition. Risks, benefits, and alternatives have been discussed and questions answered. Patient agrees to proceed with procedure.
--- NOTE | 2024-07-13 08:56 | WPDMODSED ---
Moderate Sedation Note-Pt Data Patient Data Allergies Allergy/AdvReac Type Severity Reaction Status Date / Time alendronate sodium (From AdvReac Mild rash/itching Verified 07/13/24 07:29 Fosamax) of lower legs Beta-Blockers AdvReac Unknown petechia Verified 07/13/24 07:29 (Beta-Adrenergic Bloc and vascular reaction to legs clarithromycin (From Biaxin) AdvReac Unknown extreme Verified 07/13/24 07:29 upset stomach erythromycin base AdvReac Unknown upset Verified 07/13/24 07:29 stomach tramadol AdvReac Unknown Nausea Verified 07/13/24 07:29 Home Medications ?Medication ?Instructions ?Recorded ?Confirmed ?Type biotin 800 mcg tablet 5,000 mcg PO DAILY 06/15/19 07/10/24 History calcium 500 mg 1 tablet PO DAILY 06/15/19 07/10/24 History (carb,gluconate)-magnesium 250 mg (gluc,oxide) tablet lutein 40 mg capsule 40 mg PO DAILY 06/15/19 07/10/24 History multivitamin 1 tablet PO DAILY 06/15/19 07/10/24 History cholecalciferol (vitamin D3) 50 50 mcg PO DAILY 04/30/22 07/10/24 History mcg (2,000 unit) capsule ipratropium bromide 21 mcg (0.03 2 spray intranasal TID #30 mL 12/14/22 07/10/24 Rx %) nasal spray lisinopril 40 mg tablet 40 mg PO DAILY #90 tabs 07/23/23 07/13/24 Rx methocarbamol 750 mg tablet 750 mg PO TID PRN muscle spasm #90 02/04/24 07/10/24 Rx tabs simvastatin 10 mg tablet 10 mg PO DAILY #90 tabs 02/18/24 07/10/24 Rx meloxicam 15 mg tablet 15 mg PO DAILY #90 tabs 04/16/24 07/10/24 Rx amoxicillin 500 mg capsule 500 mg PO ONCE Prior to dental 05/27/24 07/10/24 Rx appointment #8 caps famotidine 20 mg tablet 20 mg PO DAILY #90 tabs 05/27/24 07/10/24 Rx alprazolam 0.25 mg tablet 0.25 mg PO BID PRN anxiety #40 tabs 07/03/24 07/10/24 Rx nitroglycerin 0.4 mg sublingual 0.4 mg sublingual Q5M PRN CP 07/10/24 07/10/24 History tablet aspirin 81 mg tablet,delayed 81 mg PO DAILY 07/13/24 07/13/24 History release (Adult Low Dose Aspirin) Current Medications: Active Medications Sodium Chloride (Normal Saline Iv) 500 mls @ 100 mls/hr IV CONT .Q5H [facility] Sedation/Anesthesia: No previous sedation/anesthesia problems (including family history). [facility] Past Medical History Medical History Implantable loop recorder present Osteopenia of spine T12 compression fracture (~11/2021) Tinnitus of left ear Hyperlipidemia Anxiety GERD without esophagitis Essential (primary) hypertension Headache, common migraine, intractable Arthralgia Low back pain with left-sided sciatica Osteopenia Hand and wrist extensor tendon rupture Surgical History Surgical History History of breast implant removal (~2011) History of hand surgery EDC centralization LT-2016, RT-2013 History of laminectomy (~02/2016) L4-5-S1 S/P laminectomy with spinal fusion (~11/2021) Family History Family History Father , Suicide No problems noted. Grandparent , Stroke No problems noted. Grandparent , Stroke No problems noted. Social History Social History Social History: 2 cups of caffeine per day (coffee, tea) Smoking status: Never smoker Second hand tobacco smoke exposure: No Alcohol intake: current Drinks per week: 4 Alcohol use details: wine Substance use: never Substance use type: does not use Lack of Transportation: No Lack of Food: Never True Current Housing: I Have Housing Concerned About Future Housing: No Difficulty Paying Gas/Electric Bills: No Difficulty Paying for Meds: No Currently Unemployed: No Education: Bachelor's Degree Difficulty w/ Childcare or Family Care: No Living arrangements: with family Additional living arrangements comments: . Has 3 children. 4 grandchildren. Children live out of town. Occupation/Education: retired Gender identity (if verbalized by the patient): Female Spiritual care concerns: No Agree to blood products: Yes Mod Sed Physical Exam Physical Exam Pre Procedural Exam: Normal: Heart Rate Hours since solid foods: 12 Hours since liquid intake: 12 Mallampati Classification: class II Internal Medicine - PN: Obj Da Vital Signs Vital Signs: Vital Signs - 24 hr 07/13/24 07:31 Temperature 36.3 C L Pulse Rate 73 Respiratory Rate 12 Blood Pressure 146/80 H Pulse Oximetry 98 Oxygen Delivery Room Air Meds/Results Medications: Active Medications Generic Name Dose Route Start Last Admin Trade Name Flacoq PRN Reason Stop Dose Admin Sodium Chloride 500 mls @ 100 mls/hr 07/13/24 19:00 Normal Saline Iv IV CONT .Q5H [facility] 07/13/24 07:41 07/13/24 07:41 Labs: Laboratory Results - last 24 hr 07/13/24 07:41 WBC 5.3 RBC 4.57 Hgb 14.7 Hct 43.7 MCV 95.6 MCH 32.2 MCHC 33.6 RDW 13.0 Plt Count 271 MPV 8.5 Immature Gran % (Auto) 0.4 Neut % (Auto) 67.3 Lymph % (Auto) 17.2 L [place] % (Auto) 9.9 H Eos % (Auto) 4.3 Baso % (Auto) 0.9 Lymph # (Auto) 0.92 [place] # (Auto) 0.5 Eos # (Auto) 0.2 Baso # (Auto) 0.1 Abs Immat Gran (auto) 0.02 Absolute Neuts (auto) 3.6 Absolute Nucleated RBC 0.000 Nucleated RBC % 0.0 Sodium 131 L Potassium 4.7 Chloride 97 L Carbon Dioxide 27 Anion Gap 7 BUN 19 H Creatinine 0.61 L Estim Creat Clear Calc 52 Estimated GFR > 60 Glucose 95 Calcium 9.8 ASA Classification/Sedation ASA Classification/Sedation ASA Class: III Emergent: No Risks: Risks, benefits and alternatives explained and patient/family accepted plan for sedation. Patient re-evaluated immediately prior to sedation.
[2024-07-13 10:27] LABS: Activated Clotting Time 239 SEC (74-137)
--- NOTE | 2024-07-13 10:40 | WPDCARDPROC ---
Cardiac Cath Procedure Note Date of procedure:: 07/13/24 Performing physician:: CATHETERIZATION LABORATORY REPORT Procedure Date: 07/13/2024 Referring Physician: Dr. Cedeno Anesthesia: Versed and Fentanyl were ordered and given in my presence at 0902, procedure ended at 1019. Supervision of nurse, Samantha Norris monitored moderate sedation with 4mg Versed and 125mcg Fentanyl was provided for 77 minutes. Pre-op Diagnosis: Abnormal stress test Post-op Diagnosis: And normal stress test Procedure(s): Left heart catheterization with coronary angiography Percutaneous coronary intervention Access Site: Right radial artery Brief History and Clinical Indications: 71-year-old woman with hypertension and hyperlipidemia was evaluated outpatient for chest discomfort found have abnormal stress test is here to define her coronary anatomy with possible PCI. All risks, benefits and alternatives to left heart catheterization with or without percutaneous coronary intervention was discussed at length with the patient. Risk of complications including but not limited to bleeding, infection, arrhythmia, stroke, worsening kidney function, blood loss, groin hematoma, limb loss, emergency coronary artery bypass grafting, and even were discussed with the patient and all questions were answered. The patient understood and wished to proceed. Time out called, patient name, date of , medical record number, allergies, procedure performed, identify Structural Engineer, patient and staff member concurred with accurate data, procedure carried on. Findings: LEFT HEART CATHETERIZATION FINDINGS: 1. Left main: The left main coronary artery is widely patent without any significant obstructive disease. 2. Left anterior descending: The LAD gives off 1 large sized diagonal vessel. The proximal to mid LAD has a heavily calcified 90-95% stenosis involving the 1st diagonal branch which has a 99% proximal stenosis right after an aneurysmal section. 3. Left circumflex: The left circumflex artery gives off 3 OM branches. The left circumflex has diffuse 10-20% stenosis. OM1 has a high-grade 99% stenosis with ANISA 2 flow and is a very tortuous vessel with areas of myocardial bridging. 4. Right coronary artery: The RCA is a large dominant vessel with 30% stenosis in its proximal and distal body. The remainder of the vessel has luminal irregularities. 5. Left ventricle: A. End-diastolic pressure 25 mmHg. B. LV gram deferred. C. No significant gradient across aortic valve on catheter pullback. 6. Opening AO pressure 118/68 and closing AO pressure 154/75 Description of Procedure: Informed consent signed and placed in the chart. Patient transferred to [facility] conservation laborer room. Prepped and draped in usual sterile fashion. 2% lidocaine injected subcutaneously in right wrist area. 22-gauge venipuncture catheter used to access the right radial artery with the Seldinger technique. 6-FR slender sheath placed in right radial artery. Nitroglycerin 200mcg, Verapamil 2.5mg, and Heparin 5000U was given intraarterial through the sheath. J wire advanced under fluoroscopy 5F TIG diagnostic catheter engaged Left Main Coronary Artery. 5F JR4 diagnostic catheter engaged Right Coronary Artery Multiple orthogonal angiogram obtained and reviewed 5F Pigtail diagnostic catheter crossed aortic valve to obtain LVEDP, LV angiogram deferred. Hemostasis was achieved by application of TR band. Procedure Description for PCI: Heparin was used for anticoagulation (ACT maintained above 250) Patient loaded with heparin at 70 units/kg. 6F EBU3.5 guide catheter was used to intubate the LMCA. 0.014 Runthrough coronary wire was passed in to the OM1 vessel past the area of stenosis. We attempted to bring the wire into the distal OM1 vessel however due to significant tortuosity and areas of myocardial bridging, we were unable to obtain optimal wire purchase. At this time, the wire was causing occlusive flow. We attempted to quickly deliver a 1.5 x 10mm balloon however, due to tortuosity and not enough wire purchase, the balloon would not cross into the lesion. We used a micro Rx catheter to help deliver the wire more distally and was able to obtain better wire purchase. However, wire position was not maintained and redelivery of the micro Rx catheter was attempted without success in advancing the wire any further. At this time with the wire across the lesion and the microcatheter having gone past the lesion once, there did appear to be jehovah's witness of ANISA 3 flow. Decision was made to proceed with PCI of the vessel to maintain patency. A GuideLiner was advanced into the left circumflex with aid of a 1.5 x 10 mm balloon via inchworm method. The balloon was delivered to the lesion and inflated to high atmospheres. At this time, linear dissection was noted proximal left circumflex and this was covered 4.0 x 15mm Eliot BALJEET deployed at 14 atmospheres. There was plaque shift into the LAD causing significant stenosis in the ostial/proximal LAD. A Runthrough wire was advanced into the LAD and took the course of the diagonal branch and was left in place in the diagonal vessel. A Samurai wire was then advanced into the LAD and was able to be negotiated down into the distal LAD. A 3.0 x 20mm balloon was then used to treat the mid to ostial LAD with acceptable results. Assessment: Multivessel CAD POBA to critical OM1 stenosis with jehovah's witness of ANISA 3 flow Successful PCI to ostial left circumflex with 4.0 x 15mm Eliot BALJEET with resolution of coronary dissection POBA to mid to ostial LAD due to plaque shift from LCx PCI with acceptable angiographic results Post Operative Condition: Stable No significant blood loss Disposition: Floor Plan: Admit to IMU for overnight observation with plans to perform TTE tomorrow morning. If TTE and patient stable tomorrow morning, can discharge home. ASA 81mg PO indefinitely. Plavix 75mg PO daily for a minimum of 1 year. Would recommend PCI of the LAD/D1 at facility with calcium modifying technologies such as Shockwave IVL and/or atherectomy or consider CABG. Reattempt at PCI to OM1 would carry elevated risk given significant tortuosity and recommend medical management for now. Filiberto Booth Interventional Cardiology
[2024-07-13] MEDS: SODIUM CHLORIDE 0.9% IV 1,000 ML 125 ML IV CONT (11:41)
--- NOTE | 2024-07-13 12:49 | SUR.PHASEII ---
Pt called me in to her room to tell me she noticed bleeding from under TR band. 3mL of air re instilled to balloon. Small hematoma noted distal to TR band. Pressure held for ten minutes. Skin is now soft. Bruising also noted to site under the TR band.
--- NOTE | 2024-07-13 13:19 | P.HP_ITS ---
H&P: HPI History of Present Illness Date/Time: 07/13/24 13:19 Chief Complaint: abnormal stress test Narrative: 71-year-old woman with hypertension and hyperlipidemia was evaluated outpatient for chest discomfort found have abnormal stress test is now status post PCI. She currently is chest pain free without any shortness of breath orthopnea. Last evening she had severe substernal chest pain that was resolved with sublingual nitroglycerin. Today she underwent coronary catheterization which showed ANISA 2 flow in the OM1 vessel and severely calcified bifurcation disease at the mid LAD and 1st diagonal branch. She underwent PTCA of the OM1 vessel which was very tortuous with suboptimal results however latter-day of ANISA 3 flow. She had GuideLiner induce dissection of the left circumflex requiring PCI with subsequent plaque shift into the ostial LAD which require PTCA. She is now being admitted for overnight monitoring. Review of Systems Cardiovascular: Cardiovascular: Reports as per HPI Respiratory: Respiratory: Reports as per HPI [facility] Past Medical History Medical History Implantable loop recorder present Osteopenia of spine T12 compression fracture (~11/2021) Tinnitus of left ear Hyperlipidemia Anxiety GERD without esophagitis Essential (primary) hypertension Headache, common migraine, intractable Arthralgia Low back pain with left-sided sciatica Osteopenia Hand and wrist extensor tendon rupture Surgical History Surgical History History of breast implant removal (~2011) History of hand surgery EDC centralization LT-2016, RT-2013 History of laminectomy (~02/2016) L4-5-S1 S/P laminectomy with spinal fusion (~11/2021) Family History Family History Father , Suicide No problems noted. Grandparent , Stroke No problems noted. Grandparent , Stroke No problems noted. Social History Social History Social History: 2 cups of caffeine per day (coffee, tea) Smoking status: Never smoker Second hand tobacco smoke exposure: No Alcohol intake: current Drinks per week: 1 Alcohol use details: wine Substance use: never Substance use type: does not use Lack of Transportation: No Lack of Food: Never True Current Housing: I Have Housing Concerned About Future Housing: No Difficulty Paying Gas/Electric Bills: No Difficulty Paying for Meds: No Currently Unemployed: No Education: Bachelor's Degree Difficulty w/ Childcare or Family Care: No Living arrangements: with family Additional living arrangements comments: . Has 3 children. 4 grandchildren. Children live out of town. Occupation/Education: retired Gender identity (if verbalized by the patient): Female Spiritual care concerns: No Agree to blood products: Yes Meds Home Medications and Allergies Home Medications ?Medication ?Instructions ?Recorded ?Confirmed ?Type biotin 800 mcg tablet 5,000 mcg PO DAILY 06/15/19 07/13/24 History calcium 500 mg 1 tablet PO DAILY 06/15/19 07/13/24 History (carb,gluconate)-magnesium 250 mg (gluc,oxide) tablet lutein 40 mg capsule 40 mg PO DAILY 06/15/19 07/13/24 History multivitamin 1 tablet PO DAILY 06/15/19 07/13/24 History cholecalciferol (vitamin D3) 50 50 mcg PO DAILY 04/30/22 07/13/24 History mcg (2,000 unit) capsule ipratropium bromide 21 mcg (0.03 2 spray intranasal TID #30 mL 12/14/22 07/10/24 Rx %) nasal spray methocarbamol 750 mg tablet 750 mg PO TID PRN muscle spasm #90 02/04/24 07/10/24 Rx tabs simvastatin 10 mg tablet 10 mg PO DAILY #90 tabs 02/18/24 07/13/24 Rx meloxicam 15 mg tablet 15 mg PO DAILY #90 tabs 04/16/24 07/13/24 Rx amoxicillin 500 mg capsule 500 mg PO ONCE Prior to dental 05/27/24 07/10/24 Rx appointment #8 caps famotidine 20 mg tablet 20 mg PO DAILY #90 tabs 05/27/24 07/13/24 Rx alprazolam 0.25 mg tablet 0.25 mg PO BID PRN anxiety #40 tabs 07/03/24 07/13/24 Rx nitroglycerin 0.4 mg sublingual 0.4 mg sublingual Q5M PRN CP 07/10/24 07/10/24 History tablet aspirin 81 mg tablet,delayed 81 mg PO DAILY 07/13/24 07/13/24 History release (Adult Low Dose Aspirin) lisinopril 40 mg tablet 40 mg PO DAILY #90 tabs 07/13/24 07/13/24 Rx Allergies Allergy/AdvReac Type Severity Reaction Status Date / Time alendronate sodium (From AdvReac Mild rash/itching Verified 07/13/24 07:29 Fosamax) of lower legs Beta-Blockers AdvReac Unknown petechia Verified 07/13/24 07:29 (Beta-Adrenergic Bloc and vascular reaction to legs clarithromycin (From Biaxin) AdvReac Unknown extreme Verified 07/13/24 07:29 upset stomach erythromycin base AdvReac Unknown upset Verified 07/13/24 07:29 stomach tramadol AdvReac Unknown Nausea Verified 07/13/24 07:29 Vital Signs Vital Signs - 24 hr 07/13/24 07:31 07/13/24 10:50 07/13/24 10:50 Temperature 36.3 C L Pulse Rate 73 77 Pulse Rate [Right Radial] 77 Respiratory Rate 12 14 Blood Pressure 146/80 H 150/87 H Pulse Oximetry 98 99 Oxygen Delivery Room Air Room Air 07/13/24 11:05 07/13/24 11:05 07/13/24 11:20 Temperature Pulse Rate 76 Pulse Rate [Right Radial] 76 93 Respiratory Rate 16 Blood Pressure 135/86 Pulse Oximetry 99 Oxygen Delivery Room Air 07/13/24 11:20 07/13/24 11:35 07/13/24 11:35 Temperature Pulse Rate 93 89 Pulse Rate [Right Radial] 89 Respiratory Rate 16 15 Blood Pressure 126/90 117/78 Pulse Oximetry 99 97 Oxygen Delivery Room Air Room Air 07/13/24 11:50 07/13/24 11:50 07/13/24 12:05 Temperature Pulse Rate 81 90 Pulse Rate [Right Radial] 89 Respiratory Rate 15 18 Blood Pressure 148/94 H 166/85 H Pulse Oximetry 98 99 Oxygen Delivery Room Air Room Air 07/13/24 12:10 07/13/24 12:25 07/13/24 12:25 Temperature Pulse Rate 82 81 Pulse Rate [Right Radial] 89 Respiratory Rate 14 12 Blood Pressure 143/100 H 150/86 H Pulse Oximetry 98 98 Oxygen Delivery Room Air Room Air 07/13/24 12:30 07/13/24 12:40 07/13/24 12:55 Temperature Pulse Rate 85 88 Pulse Rate [Right Radial] 89 Respiratory Rate 16 18 Blood Pressure 150/86 H 132/105 H Pulse Oximetry 96 96 Oxygen Delivery Room Air Room Air 07/13/24 13:10 Temperature Pulse Rate 88 Pulse Rate [Right Radial] Respiratory Rate 16 Blood Pressure 146/88 H Pulse Oximetry 98 Oxygen Delivery Room Air Exam Const: General: comfortable HENMT: Mouth: Yes moist mucous membranes Eyes: EOM: EOMs intact bilaterally Neck: Neck: no JVD Resp: Effort & Inspection: normal respiratory effort Auscultation: clear to auscultation bilaterally Cardio: Rate: regular rate Rhythm: regular rhythm GI: GI Palp: Yes Soft to palpation Neuro: Speech: normal speech Extrem: General: no pedal edema H&P: Results Labs Labs: Short CBC 07/13/24 Range/Units 07:41 WBC 5.3 (4.5-10.0) K/mm3 Hgb 14.7 (12.0-15.0) g/dL Hct 43.7 (37.0-47.0) % Plt Count 271 (150-375) k/mm3 BMP 07/13/24 07:41 Sodium 131 L Potassium 4.7 Chloride 97 L Carbon Dioxide 27 BUN 19 H Creatinine 0.61 L Glucose 95 Calcium 9.8 Assessment and Plan Assessment and plan (1) Abnormal stress test: Code(s): R94.39 - Abnormal result of other cardiovascular function study Status: Acute Plan 71-year-old woman with hypertension and hyperlipidemia was evaluated outpatient for chest discomfort found have abnormal stress test is now sp PCI Abnormal stress test -latter-day ANISA 3 flow in the OM1 vessel however angiographically suboptimal results with still severe stenosis -status post PCI to prox left circumflex GuideLiner induced dissection -status post PTCA of the mid to ostial LAD due to plaque shift from left circumflex PCI -if chest pain-free tomorrow and no significant complications on transthoracic echocardiogram, can follow up outpatient -continue aspirin 81 mg p.o. daily Plavix 75 mg p.o. daily
--- NOTE | 2024-07-13 13:54 | SUR.PHASEII ---
Hematoma still present and bruised area outlined with skin marker. Discussed with a department senior technical writer and split leather department supervisor and will have Dr. Booth see the patient as well.
--- NOTE | 2024-07-13 15:40 | PC.NURSE ---
Dr. Booth to bedside to evaluate patient's arm. There is some swelling noted proximal to the puncture site. Coban on the arm board loosened and will re evaluate swelling in arm in one hour.
--- NOTE | 2024-07-13 16:26 | SUR.PHASEII ---
Dr. Booth back to bedside to re-evaluate arm swelling. Dr. Booth orders TR band placed back on arm proximal to previous TR band placement. STAT US imaging ordered.
[2024-07-13] MEDS: ACETAMINOPHEN 325 MG TABLET 650 MG PO (16:51)
--- NOTE | 2024-07-13 17:05 | SUR.PHASEII ---
US at bedside for testing. TR band and dressing removed per Dr. Booth VORB. Will re dress and call Dr. Booth after procedure.
--- NOTE | 2024-07-13 17:39 | SUR.PHASEII ---
I shared the results of the US with Dr. Booth who orders TR band to be replaced proximal to original site again and to place pressure bandage on proximal forearm for one hour and the re evaluate.
--- NOTE | 2024-07-13 18:30 | SUR.PHASEII ---
Spoke with Maru from [facility] transfer center about pt transfer to [facility].
--- NOTE | 2024-07-13 19:00 | SUR.PHASEII ---
Dr. Booth at bedside to re evaluate patient.
--- NOTE | 2024-07-13 19:53 | PM.EVENT ---
Event Note Event Note Event Note: Was called to bedside around 3:30pm for possible hematoma of right wrist after TR band removal. Assessment of her right arm showed intact motor and sensory function. The fingers feel minimally cooler then the left fingers. The forearm was tender and tense. TR band was reapplied to the right wrist puncture site. A mat compression dressing was applied to the right forearm. An ultrasound was ordered and results showed a small hematoma along the right radial artery without evidence of pseudoaneurysm. At this time, given lack of vascular surgery at this facility, decision was made to transfer patient to [facility] for re-evaluation and monitoring with plan to repeat ultrasound in the morning. Reassessment of her right upper extremity showed the forearm no longer tender and much less tense compared to the left arm. Sensation and motor function intact. Barbeau class A with the TR band on with 10cc air inflation. Compression dressing was reapplied. Results discussed with patient and while she is unlikely to experience any major vascular complications, it would be safer to monitor at facility with vascular surgery capabilities. Also, we discussed the [facility] capability to complete her coronary revascularization. With these in mind, patient agreed to transfer to [facility] for vascular surgery consultation and interventional cardiology consultation. TR band removal will begin at 10pm this evening if EMS has not arrived to pick her up. Compression dressing will stay on until tomorrow morning if EMS has not arrived to pick her up. Filiberto Booth MD Interventional Cardiology
--- NOTE | 2024-07-13 21:09 | ADMIMU ---
This patient, Katina Vinson, was admitted to IMU status, and placed in Intensive Care Unit-4. Patient/family oriented to hospital policies and general routines including ID bracelet, bed and alarms, visiting hours, pain management, procedures, bathroom and other care routines, personal items, smoking policy, room service/diet, and visiting hours. Valuables list has been completed. Information on how to activate the Rapid Response Team has been discussed. Patient/Family are encouraged to report perceived risks to care and to ask questions if they do not understand what they are told or what they should do.
--- NOTE | 2024-07-13 21:09 | PC.NURSE ---
Report received from Max GUZMAN. Patient from recovery. All belongings with patient. at bedside.
[2024-07-13] MEDS: ALPRAZolam (*CRX) 0.25 MG TABLET PO (21:40)
[2024-07-14] VITALS: BP 141/72; PULSE 76; PULSE 91; RESP 12; RESP 16; TEMP 36.6; O2SAT 100; O2SAT 97
--- NOTE | 2024-07-14 | ECHO_ITS ---
Patient Info Name: Katina Vinson Age: 79 years : 1945 Gender: Female Ht: 63 in Wt: 111 lbs BSA: 1.49 m2 HR: 68 bpm BP: 120 / 64 mmHg Heart Rhythm: Sinus Rhythm Technical Quality: Fair Exam Date: 07/14/2024 8:59 AM Exam Location: Echo Lab Patient Status: Inpatient Admit Date: 07/13/2024 Staff Ordering Physician: Filiberto Booth MD (kathy/maribel) Tassel Snipper: Mary Booth RDCS Attending Provider: Filiberto Booth MD (nicole) Exam Type: CA echo doppler color flow Study Info Indications - Pericardial effusion Complete two-dimensional, color flow and Doppler transthoracic echocardiogram is performed. Summary 1. Left ventricular chamber dimension is normal. 2. Left ventricular systolic function is normal, estimated at 60-65%. 3. There is mildly increased left ventricular wall thickness. 4. The left ventricular diastolic function is grade I diastolic dysfunction. 5. Right ventricular systolic function is normal. 6. There is mild mitral valve regurgitation. 7. There is mild tricuspid valve regurgitation. Left Ventricle Left ventricular chamber dimension is normal. Left ventricular systolic function is normal, estimated at 60-65%. There is mildly increased left ventricular wall thickness. The left ventricular diastolic function is grade I diastolic dysfunction. Right Ventricle Right ventricular chamber dimension is normal. Right ventricular systolic function is normal. Left Atria Left atrial chamber dimension is normal. Right Atria Right atrial chamber dimension is normal. Atrial Septum Intact interatrial septum visualized by color flow imaging. Aortic Valve The aortic valve is probable trileaflet. There is no aortic valve stenosis. There is no aortic valve regurgitation. Pulmonic Valve The pulmonic valve is not well visualized. There is no pulmonic regurgitation. Mitral Valve There is mild mitral valve regurgitation. Tricuspid Valve There is mild tricuspid valve regurgitation. Pericardium/Pleural There is no pericardial effusion. Inferior Vena Cava Inferior vena cava is not well visualized. Aorta The aortic root size at the sinus of Valsalva is normal. Left Ventricular Outflow Tract Name Value Normal LVOT 2D LVOT Diameter 2.0 cm LVOT Doppler LVOT Peak Gradient 3 mmHg LVOT Mean Gradient 2 mmHg LVOT VTI 20 cm LVOT VTI/AV VTI Ratio 0.8 LVOT Stroke Volume 67 ml LVOT CO 4.9 l/min LVOT CI 3.3 l/min/m2 Pulmonic Valve Name Value Normal RVOT Doppler RVOT Peak Gradient 1 mmHg PV Regurgitation Doppler MI Peak End Diastolic Velocity 79 cm/s Mitral Valve Name Value Normal MV Doppler MV Decel [place] 244 cm/s2 MV PHT 75 ms MV Area (PHT) 2.9 cm2 4.0-5.0 MV Diastolic Function MV E Peak Velocity 63 cm/s MV A Peak Velocity 72 cm/s MV E/A 0.9 MV Decel Time 258 ms MV Annular TDI MV E/e' (Septal) 9.7 <=8.0 MV E/e' (Lateral) 6.3 <=8.0 MV E/e' (Average) 8.0 Tricuspid Valve Name Value Normal TV Regurgitation Doppler TR Peak Velocity 247 cm/s TR Peak Gradient 24 mmHg Aortic Valve Name Value Normal AV Doppler AV Peak Velocity 112 cm/s AV Peak Gradient 5 mmHg AV Mean Gradient 3 mmHg AV VTI 26 cm AV Area (Cont Eq VTI) 2.6 cm2 >=3.0 AV Area (Cont Eq Jose Alejandro) 2.7 cm2 AV Regurgitation 2D LVOT Area 3.3 cm2 Ventricles Name Value Normal LV Dimensions 2D/MM IVS Diastolic Thickness (2D) 1.1 cm 0.6-1.0 LVID Diastole (2D) 3.1 cm 3.8-5.2 LVIW Diastolic Thickness (2D) 1.0 cm 0.6-0.9 LVID Systole (2D) 2.0 cm 2.2-3.5 LVOT Diameter 2.0 cm LV Mass (2D Cubed) 98.56 g 67.00-162.00 LV Mass Index (2D Cubed) 66 g/m2 43-95 Relative Wall Thickness (2D) 0.65 LV Fractional Shortening/Ejection Fraction 2D/MM LV Fractional Shortening (2D) 36 % 27-45 LV EF (2D Teicholz) 67 % 54-74 LV Diastolic Volume (4C MOD) 87 ml LV EF (4C MOD) 50 % LV Diastolic Volume (2C MOD) 96 ml LV EF (2C MOD) 74 % LV Diastolic Volume (BP MOD) 92 ml 46-106 LV Diastolic Volume Index (BP MOD) 62 ml/m2 29-61 LV Systolic Volume (BP MOD) 34 ml 14-42 LV Systolic Volume Index (BP MOD) 23 ml/m2 8-24 LV EF (BP MOD) 62 % 54-74 LV Diastolic Length (4C) 7.7 cm LV Systolic Length (4C) 6.5 cm LV Stroke Volume (4C MOD) 43 ml Atria Name Value Normal LA Dimensions LA Volume (4C A-L) 32 ml LA Volume (BP A-L) 42 ml RA Dimensions RA Area (4C) 12.5 cm2 <=18.0 Report Signatures
[2024-07-14 02:00] VITALS: PULSE 70
[2024-07-14] MEDS: methocarbamoL 750 MG TABLET PO (02:37)
[2024-07-14] MEDS: ACETAMINOPHEN 325 MG TABLET 650 MG PO (02:37)
[2024-07-14 04:00] VITALS: BP 150/79; PULSE 68; PULSE 70; PULSE 76; RESP 14; RESP 16; TEMP 36.6; O2SAT 97; O2SAT 98
[2024-07-14 06:00] VITALS: PULSE 70
[2024-07-14 08:00] VITALS: BP 149/87; PULSE 68; PULSE 87; RESP 20; TEMP 36.6; O2SAT 98
[2024-07-14] MEDS: CHOLECALCIFEROL 1,000 UNITS TABLET 2000 UNITS PO (09:54)
[2024-07-14] MEDS: ASPIRIN 81 MG ENTERIC TABLET PO (09:54)
[2024-07-14] MEDS: CLOPIDOGREL BISULFATE 75 MG TABLET PO (09:54)
[2024-07-14] MEDS: lisinopriL 20 MG TABLET 40 MG PO (09:55)
[2024-07-14] MEDS: MELOXICAM 7.5 MG TABLET 15 MG PO (09:55)
[2024-07-14] MEDS: FAMOTIDINE 20 MG TABLET PO (09:55)
[2024-07-14] MEDS: MULTIVITAMINS THERAPEUTIC TAB (*BKC) 1 TABLET PO (09:56)
[2024-07-14] MEDS: SIMVASTATIN 10 MG TABLET PO (09:56)
[2024-07-14 10:00] VITALS: PULSE 94
--- NOTE | 2024-07-14 10:04 | P.TS_ITS ---
Transfer Discharge Sum: Prov Provider Date of admission: 07/13/24 10:40 Primary care physician: Rachel Friend NP Admitting clinician: Filiberto Booth MD DS: Admitting Diagnosis Discharge Date 07/14/24 Admitting Diagnosis Coronary artery disease DS: Discharge Diagnosis Discharge Diagnosis (1) Abnormal stress test: Code(s): R94.39 - Abnormal result of other cardiovascular function study Status: Acute Plan 71-year-old woman with hypertension and hyperlipidemia was evaluated outpatient for chest discomfort found have abnormal stress test is now sp PCI Abnormal stress test -gnosticism ANISA 3 flow in the OM1 vessel however angiographically suboptimal results with still severe stenosis -status post PCI to prox left circumflex GuideLiner induced dissection -status post PTCA of the mid to ostial LAD due to plaque shift from left circumflex PCI -07/13/24: 10 x 9 x 4 mm right radial hematoma with no pseudoaneurysm -Plan to transfer to [facility] in case of vascular surgery need and for complex PCI -continue aspirin 81 mg p.o. daily Plavix 75 mg p.o. daily Transfer Discharge Sum: Med Medications Active and Home Medications: Home Medications biotin 800 mcg tablet 5,000 mcg PO DAILY 06/15/19 [History Confirmed 07/13/24] calcium 500 mg (carb,gluconate)-magnesium 250 mg (gluc,oxide) tablet 1 tablet PO DAILY 06/15/19 [History Confirmed 07/13/24] lutein 40 mg capsule 40 mg PO DAILY 06/15/19 [History Confirmed 07/13/24] multivitamin 1 tablet PO DAILY 06/15/19 [History Confirmed 07/13/24] cholecalciferol (vitamin D3) 50 mcg (2,000 unit) capsule 50 mcg PO DAILY [History Confirmed 07/13/24] ipratropium bromide 21 mcg (0.03 %) nasal spray 2 spray intranasal TID #30 mL 12/14/22 [Rx Confirmed 07/10/24] methocarbamol 750 mg tablet 750 mg PO TID PRN muscle spasm #90 tabs 02/04/24 [Rx Confirmed 07/10/24] simvastatin 10 mg tablet 10 mg PO DAILY #90 tabs 02/18/24 [Rx Confirmed 07/13/24] meloxicam 15 mg tablet 15 mg PO DAILY #90 tabs 04/16/24 [Rx Confirmed 07/13/24] amoxicillin 500 mg capsule 500 mg PO ONCE Prior to dental appointment #8 caps 05/27/24 [Rx Confirmed 07/10/24] famotidine 20 mg tablet 20 mg PO DAILY #90 tabs 05/27/24 [Rx Confirmed 07/13/24] alprazolam 0.25 mg tablet 0.25 mg PO BID PRN anxiety #40 tabs 07/03/24 [Rx Confirmed 07/13/24] nitroglycerin 0.4 mg sublingual tablet 0.4 mg sublingual Q5M PRN CP 07/10/24 [History Confirmed 07/10/24] aspirin 81 mg tablet,delayed release (Adult Low Dose Aspirin) 81 mg PO DAILY 07/13/24 [History Confirmed 07/13/24] clopidogrel 75 mg tablet 75 mg PO QAM #90 tabs 07/13/24 [Rx] lisinopril 40 mg tablet 40 mg PO DAILY #90 tabs 07/13/24 [Rx Confirmed 07/13/24] Active Medications Acetaminophen (Acetaminophen 325 Mg Tablet) 650 mg PO Q4H PRN PRN Reason: Headache Last Admin: 07/14/24 02:37 Dose: 650 mg Alprazolam (Alprazolam (*Crx) 0.25 Mg Tablet) 0.25 mg PO BID PRN PRN Reason: anxiety Last Admin: 07/13/24 21:40 Dose: 0.25 mg Aspirin (Aspirin 81 Mg Enteric Tablet) 81 mg PO DAILY [facility] Last Admin: 07/14/24 09:54 Dose: 81 mg Clopidogrel Bisulfate (Clopidogrel Bisulfate 75 Mg Tablet) 75 mg PO QAM [facility] Last Admin: 07/14/24 09:54 Dose: 75 mg Diltiazem HCl (Diltiazem Hcl Cd 120 Mg Cap.24hr) 120 mg PO QAM [facility] Last Admin: 07/14/24 09:59 Dose: Not Given Docusate Sodium (Docusate Sodium Liq 100 Mg/10 Ml Udc) 100 mg PO Q12HR PRN PRN Reason: constipation Famotidine (Famotidine 20 Mg Tablet) 20 mg PO DAILY [facility] Last Admin: 07/14/24 09:55 Dose: 20 mg Ipratropium [place] (Ipratropium Nasal [place] 0.03% 15 Ml Bottle) 2 spray NASAL TID [facility] Last Admin: 07/14/24 09:59 Dose: Not Given Lisinopril (Lisinopril 20 Mg Tablet) 40 mg PO DAILY [facility] Last Admin: 07/14/24 09:55 Dose: 40 mg Melatonin (Melatonin 3 Mg Tablet) 3 mg PO HS PRN PRN Reason: insomnia Meloxicam (Meloxicam 7.5 Mg Tablet) 15 mg PO QAM [facility] Last Admin: 07/14/24 09:55 Dose: 15 mg Methocarbamol (Methocarbamol 750 Mg Tablet) 750 mg PO TID PRN PRN Reason: muscle spasm Last Admin: 07/14/24 02:37 Dose: 750 mg Multivitamins Therapeutic (Multivitamins Therapeutic Tab (*Bkc)) 1 tablet PO DAILY [facility] Last Admin: 07/14/24 09:56 Dose: 1 tablet Nitroglycerin (Nitroglycerin Sl 0.4 Mg Tablet) 0.4 mg SUBLINGUAL Q5M PRN PRN Reason: CP Ondansetron HCl (Ondansetron Inj 4 Mg/2 Ml Vial) 4 mg IV PUSH Q8H PRN PRN Reason: Nausea And Vomiting Perflutren Lipid Microsphere (Perflutren Lipid Microspheres 1.5 Ml Vial Diluted To 10 Ml Total Volume) 0 ml IV PUSH ONCE PRN; Protocol PRN Reason: adequate visualization Stop: 07/16/24 13:24 Simvastatin (Simvastatin 10 Mg Tablet) 10 mg PO DAILY [facility] Last Admin: 07/14/24 09:56 Dose: 10 mg Vitamin D (Cholecalciferol 1,000 Units Tablet) 2,000 units PO DAILY [facility] Last Admin: 07/14/24 09:54 Dose: 2,000 units Transfer Discharge Sum: Hosp Hospital Course Hospital course: Katina Vinson is a 79 year old female Time Spent with Patient Time attestation: Total time spent providing and/or coordinating transfer services: Exam Const: General: comfortable HENMT: Mouth: Yes moist mucous membranes Eyes: EOM: EOMs intact bilaterally Neck: Neck: no JVD Resp: Effort & Inspection: normal respiratory effort Auscultation: clear to auscultation bilaterally Cardio: Rate: regular rate Rhythm: regular rhythm Neuro: Speech: normal speech Extrem: General: no pedal edema DS: Data Data Completed and Pending Labs on day of discharge: Labs from last 24 hours 07/13/24 10:25 Activ Coag Time Kaolin 239 H
== END 2024-07-14 11:18 | disposition short-term general hospital (02) | DRG 321 ==
LOC: ANHCATHLAB 13:29 → ANHICU 07-14 08:37
PROVIDERS: Admitting Provider Internal Medicine; PCP Nurse Practitioner Family; Visit Provider Nurse Practitioner
PROC: 4A023N7 Measurement of Cardiac Sampling and Pressure, Left Heart, Percutaneous Approach (ICD-10-PCS; CPT 93452; principal; 2024-07-13 08:30)
PROC: 027034Z Dilation of Coronary Artery, One Artery with Drug-eluting Intraluminal Device, Percutaneous Approach (ICD-10-PCS; CPT 92928; 2024-07-13 08:30)
PROC: 027034Z Dilation of Coronary Artery, One Artery with Drug-eluting Intraluminal Device, Percutaneous Approach (ICD-10-PCS; CPT 92920; 2024-07-13 08:30)
DX: I25.10 Atherosclerotic heart disease of native coronary artery without angina pectoris (principal); I25.42 Coronary artery dissection; I97.630 Postprocedural hematoma of a circulatory system organ or structure following a cardiac catheterization; Q24.5 Malformation of coronary vessels; I10 Essential (primary) hypertension; E78.5 Hyperlipidemia, unspecified; K21.9 Gastro-esophageal reflux disease without esophagitis; M85.88 Other specified disorders of bone density and structure, other site; M54.42 Lumbago with sciatica, left side; G43.009 Migraine without aura, not intractable, without status migrainosus; F41.9 Anxiety disorder, unspecified; Z79.82 Long term (current) use of aspirin
CPT/HCPCS: 36415; 80048; 85025; 92920; 93306; 93458; 93931; A9270; C1725; C1753; C1769; C1874; C1887; C1894; C9600; J1644; J2003; J2250; J2305; J3010; J7030; J7040

== ENCOUNTER 2024-08-17 13:47 | Emergency (ER) | payer MEDICARE, SELFPAY ==
--- NOTE | ~2024-08-17 | XR_ITS ---
EXAMINATION: XR shoulder RT min 2V DATE: 08/17/2024 14:28 INDICATION: Right shoulder pain and limited range of motion post fall TECHNIQUE: AP internally and externally rotated, AP oblique externally rotated and transscapular Y vi ews of the right shoulder were obtained. COMPARISON: None FINDINGS: Normal alignment. No fracture. Glenohumeral joint is normal. Mild osteoarthritis at the acromioclavi cular joint. Visualized portion of the lungs are clear. Soft tissues are unremarkable. Coronary arter y stenting. IMPRESSION: Mild right acromioclavicular osteoarthritis. No acute osseous abnormality. Reviewed, dictated and finalized at location B.
--- NOTE | ~2024-08-17 | XR_ITS ---
XR hip RT 2V w AP pelvis Ordering provider: Jia Jasmine APRN History: . right hip pain after fall today . Comparison: None. FINDINGS: BONES: No acute fracture or dislocation. Postoperative changes in the lower lumbar area and iliac bon es. HIP JOINT SPACES: Mild osteoarthritis bilaterally. SACROILIAC JOINT SPACES/LUMBAR SPINE: The sacroiliac joint spaces are normal. Mild degenerative de luna es of the visualized lower lumbar spine. PUBIC SYMPHYSIS: Normal. SOFT TISSUES: Normal. IMPRESSION: No acute osseous abnormality pelvis and right hip. Reviewed, dictated and finalized at location A.
--- NOTE | 2024-08-17 13:53 | ED.UPPEXIN ---
HPI - Extremity Injury (Upper) General Chief Complaint: Fall Stated Complaint: Injured Right Shoulder/Hip Source: patient and RN notes reviewed Mode of arrival: ambulatory Limitations: no limitations History of Present Illness HPI narrative: Patient is a 79-year-old female who presents to the [facility] after a fall in her garden that occurred earlier today. Patient states that she stepped back on to the wooden frame of the garden, which caused her to lose her balance and fall backwards. Patient states that she attempted to break her fall with her right arm. She is reporting right shoulder pain and right hip pain. There is notable bruising to her right elbow but she denies pain in this area. She has full range of motion of her right elbow. She has limited range of motion of the right shoulder and tenderness to the right hip. She is neurovascularly intact distally. Sensation is intact. She denies hitting her head or loss consciousness. Denies any neck or back pain. She does take Plavix daily. Related Data Home Medications ?Medication ?Instructions ?Recorded ?Confirmed ?Last Taken ?Type biotin 800 mcg tablet 5,000 mcg PO DAILY 06/15/19 07/13/24 07/12/24 History calcium 500 mg 1 tablet PO DAILY 06/15/19 07/13/24 07/12/24 History (carb,gluconate)-magnesium 250 mg (gluc,oxide) tablet lutein 40 mg capsule 40 mg PO DAILY 06/15/19 07/13/24 07/12/24 History multivitamin 1 tablet PO DAILY 06/15/19 07/13/24 07/12/24 History cholecalciferol (vitamin D3) 50 50 mcg PO DAILY 04/30/22 07/13/24 07/12/24 History mcg (2,000 unit) capsule nitroglycerin 0.4 mg sublingual 0.4 mg sublingual Q5M PRN CP 07/10/24 07/10/24 06/29/24 History tablet aspirin 81 mg tablet,delayed 81 mg PO DAILY 07/13/24 07/13/24 07/13/24 History release (Adult Low Dose Aspirin) diltiazem HCl 120 mg capsule,24 mg PO 08/17/24 Unknown History hr,extended release diltiazem HCl 120 mg mg PO 08/17/24 Unknown History capsule,extended release 24 hr, controlled (DILT-XR) rosuvastatin 20 mg tablet mg 08/17/24 Unknown History Allergies Allergy/AdvReac Type Severity Reaction Status Date / Time alendronate sodium (From AdvReac Mild rash/itching Verified 08/17/24 14:05 Fosamax) of lower legs Beta-Blockers AdvReac Unknown petechia Verified 08/17/24 14:05 (Beta-Adrenergic Bloc and vascular reaction to legs clarithromycin (From Biaxin) AdvReac Unknown extreme Verified 08/17/24 14:05 upset stomach erythromycin base AdvReac Unknown upset Verified 08/17/24 14:05 stomach tramadol AdvReac Unknown Nausea Verified 08/17/24 14:05 Review of Systems Review of Systems: CONSTITUTIONAL: Denies fever, chills, or sweats. EYES: Denies visual changes, redness, or discharge. ENT: Denies otalgia and sore throat CARDIOVASCULAR: Denies chest pain, palpitations, or edema. RESPIRATORY: Denies cough or dyspnea. GASTROINTESTINAL: Denies abdominal pain, nausea, vomiting, or diarrhea. GENITOURINARY: Denies dysuria or hematuria. SKIN: Denies rash or itching. MUSCULOSKELETAL: Reports right shoulder and right hip pain. NEUROLOGIC: Denies headache, numbness, or weakness. Pertinent positives per HPI. [facility], [facility] Past Medical History Medical History Implantable loop recorder present Osteopenia of spine T12 compression fracture (~11/2021) Tinnitus of left ear Hyperlipidemia Anxiety GERD without esophagitis Essential (primary) hypertension Headache, common migraine, intractable Arthralgia Low back pain with left-sided sciatica Osteopenia Hand and wrist extensor tendon rupture Surgical History Surgical History History of breast implant removal (~2011) History of hand surgery EDC centralization LT-2017, RT-2013 History of laminectomy (~02/2016) L4-5-S1 S/P laminectomy with spinal fusion (~11/2021) Family History Family History Father , Suicide No problems noted. Grandparent , Stroke Hypertension Grandparent , Stroke No problems noted. Social History Social History Social History: 2 cups of caffeine per day (coffee, tea) Smoking status: Never smoker Second hand tobacco smoke exposure: No Additional smoking assessment comments: states her parents smoked when she was a child Alcohol intake: current Drinks per week: 1 Alcohol use details: wine Substance use: never Substance use type: does not use Lack of Transportation: No Lack of Food: Never True Current Housing: I Have Housing Concerned About Future Housing: No Difficulty Paying Gas/Electric Bills: No Difficulty Paying for Meds: No Currently Unemployed: No Education: Bachelor's Degree Difficulty w/ Childcare or Family Care: No Living arrangements: with family Additional living arrangements comments: . Has 3 children. 4 grandchildren. Children live out of town. Occupation/Education: retired Gender identity (if verbalized by the patient): Female Spiritual care concerns: No Agree to blood products: Yes Comments At the time of my signature, I reviewed and agree with the nursing past medical, surgical, social, and family history. There is no relevant family history pertinent to the patient complaint. Exam Narrative: GENERAL: This is a well-nourished, well-developed patient, in no apparent distress. HEAD: normocephalic, atraumatic. EYES: Sclera clear/white. Vision is grossly intact. EARS: External ears normal. Hearing grossly intact. NOSE: External nose normal with no obvious nasal discharge, nares without redness, no rhinorrhea. THROAT: Mucous membranes moist, posterior pharynx clear. NECK: Neck supple, non-tender without lymphadenopathy, masses or thyromegaly. CARDIOVASCULAR: Regular rate and rhythm without murmurs, gallops, or rubs. RESPIRATORY: Clear to auscultation. Breath sounds equal bilaterally. No wheezes, rales, or rhonchi. GASTROINTESTINAL: Abdomen soft, non-tender, nondistended. Bowel sounds are active. No hepato-splenomegaly, or palpable masses. No guarding. SKIN: Bruising noted to right elbow and right upper arm. NEURO: awake, alert, and oriented to person, place and time. There were no obvious focal neurologic abnormalities. EXTREMITIES: Tenderness to the right hip. Tenderness to the right shoulder with limited range of motion. Distal neuro and motor status intact. Course Course Level of Care: Express Care Visit Vital Signs Vital signs: Vital Signs Temperature 97.6 F 08/17/24 13:56 Pulse Rate 79 08/17/24 13:56 Respiratory Rate 16 08/17/24 13:56 Blood Pressure 141/78 H 08/17/24 13:56 Pulse Oximetry 96 08/17/24 13:56 Temperature 97.6 F 08/17/24 13:56 Pulse Rate 79 08/17/24 13:56 Respiratory Rate 16 08/17/24 13:56 Blood Pressure 141/78 H 08/17/24 13:56 Pulse Oximetry 96 08/17/24 13:56 Reviewed MDM - Extremity Injury (Upper) MDM Narrative Medical decision making narrative: Use the RICE method at home. May take ibuprofen and/or Tylenol if needed. If symptoms persist in 1 week after conservative treatment, follow-up with specialist. Differential Diagnosis Differential diagnosis: Likely dislocation of shoulder, fracture of humerus and other (hip fracture, hip contusion, shoulder sprain) Imaging Data Attestation: I personally reviewed and interpreted this imaging study as follows: Radiologist's impression: Close Hip/Pelvis X-Ray (Signed) Fredo Ramírez - 08/17/24 Launch?[facility] [address] [place] [address] XRay Report Signed Patient: Katina Vinson : 1945 MR#: [id number] Age: 79 Acct:[id number] Loc: [facility] ADM Date: 08/17/24Attending Dr: Ordering Physician: Jia Jasmine APRN Date of Service: 08/17/24 Procedure(s): XR hip RT 2V w AP pelvis Accession Number(s): [id number] cc: Jia Jasmine APRN; ARBORICULTURE INSTRUCTOR PHYSICIAN~ XR hip RT 2V w AP pelvis Ordering provider: Jia Jasmine APRN History: . right hip pain after fall today . Comparison: None. FINDINGS: BONES: No acute fracture or dislocation. Postoperative changes in the lower lumbar area and iliac bones. HIP JOINT SPACES: Mild osteoarthritis bilaterally. SACROILIAC JOINT SPACES/LUMBAR SPINE: The sacroiliac joint spaces are normal. Mild degenerative changes of the visualized lower lumbar spine. PUBIC SYMPHYSIS: Normal. SOFT TISSUES: Normal. IMPRESSION: No acute osseous abnormality pelvis and right hip. Reviewed, dictated and finalized at location A. Please be advised this is a medical document. It is intended for [id number] communication. It is written in medical language and may contain unfamiliar abbreviations or verbiage. Medical documents are intended to carry relevant information, facts as evident, and the clinical opinion of the practitioner at the time of the encounter. This report may have been done utilizing a voice recognition system. Attempts have been made to correct errors. However, there may be uncorrected grammatical, spelling, and recognition errors present. The file time of this note does not necessarily represent the time of service. Dictated By: Fredo Ramírez MD 08/17/24 1431 Signed By: <Electronically signed by Fredo Ramírez MD in OV> 08/17/24 [address] [place] [address] XRay Report Signed Patient: Katina Vinson : 1945 MR#: [id number] Age: 79 Acct:[id number] Loc: [facility] ADM Date: 08/17/24Attending Dr: Ordering Physician: Jia Jasmine APRN Date of Service: 08/17/24 Procedure(s): XR shoulder RT min 2V Accession Number(s): [id number] cc: Jia Jasmine APRN; ARBORICULTURE INSTRUCTOR PHYSICIAN~ EXAMINATION: XR shoulder RT min 2V DATE: 08/17/2024 14:28 INDICATION: Right shoulder pain and limited range of motion post fall TECHNIQUE: AP internally and externally rotated, AP oblique externally rotated and transscapular Y views of the right shoulder were obtained. COMPARISON: None FINDINGS: Normal alignment. No fracture. Glenohumeral joint is normal. Mild osteoarthritis at the acromioclavicular joint. Visualized portion of the lungs are clear. Soft tissues are unremarkable. Coronary artery stenting. IMPRESSION: Mild right acromioclavicular osteoarthritis. No acute osseous abnormality. Reviewed, dictated and finalized at location B. Please be advised this is a medical document. It is intended for [id number]-txbb communication. It is written in medical language and may contain unfamiliar abbreviations or verbiage. Medical documents are intended to carry relevant information, facts as evident, and the clinical opinion of the practitioner at the time of the encounter. This report may have been done utilizing a voice recognition system. Attempts have been made to correct errors. However, there may be uncorrected grammatical, spelling, and recognition errors present. The file time of this note does not necessarily represent the time of service. Dictated By: Chris Rao MD 08/17/24 1429 Signed By: <Electronically signed by Chris Rao MD in OV> 08/17/24 1431 Critical Care Time Critical Care Time Critical Care Time: No Discharge Plan Discharge Clinical Impression: Fall from ground level, Sprain of right shoulder, Contusion of right hip Patient Disposition: Home Condition: Stable Instructions: Shoulder Sprain (ED), P.R.I.C.E. Treatment (ED), Hip Contusion (ED) Additional Instructions: Use the RICE method at home. May take ibuprofen and/or Tylenol if needed. If symptoms persist in 1 week after conservative treatment, follow-up with specialist. Patient Language: Polish Prescriptions: No Action diltiazem HCl 120 mg capsule,extended release 24hr PO diltiazem HCl [DILT-XR] 120 mg capsule,ext.rel 24h degradable PO rosuvastatin 20 mg tablet cholecalciferol (vitamin D3) 50 mcg (2,000 unit) capsule 50 mcg PO DAILY multivitamin Tablet 1 tablet PO DAILY calcium carb,gluc-mag gluc,ox 500 mg calcium -250 mg tablet 1 tablet PO DAILY biotin 800 mcg tablet 5,000 mcg PO DAILY lutein 40 mg capsule 40 mg PO DAILY Rx Instructions: administer with meals famotidine 20 mg tablet 20 mg PO DAILY Qty: 90 3RF nitroglycerin 0.4 mg tablet, sublingual 0.4 mg sublingual Q5M PRN (Reason: CP) aspirin [Adult Low Dose Aspirin] 81 mg tablet,delayed release (DR/EC) 81 mg PO DAILY clopidogrel 75 mg Tablet 75 mg PO QAM Qty: 90 3RF ipratropium bromide 21 mcg (0.03 %) spray,non-aerosol 2 spray intranasal TID Qty: 30 0RF Rx Instructions: administer into each nostril methocarbamol 750 mg tablet 750 mg PO TID PRN (Reason: muscle spasm) Qty: 90 0RF simvastatin 10 mg tablet 10 mg PO DAILY Qty: 90 1RF meloxicam 15 mg tablet 15 mg PO DAILY Qty: 90 1RF alprazolam 0.25 mg tablet 0.25 mg PO BID PRN (Reason: anxiety) Qty: 40 0RF lisinopril 40 mg tablet 40 mg PO DAILY Qty: 90 1RF Follow-up/Referrals: PHYSICIAN,ARBORICULTURE INSTRUCTOR [Primary Care Provider] - Time of Disposition: 14:40
[2024-08-17 13:56] VITALS: BP 141/78; PULSE 79; RESP 16; TEMP 36.4; O2SAT 96
== END 2024-08-17 14:45 | disposition home or self-care (01) ==
PROVIDERS: Emergency Provider Nurse Practitioner
DX: S43.401A Unspecified sprain of right shoulder joint, initial encounter (principal); W19.XXXA Unspecified fall, initial encounter; S70.01XA Contusion of right hip, initial encounter; I10 Essential (primary) hypertension; K21.9 Gastro-esophageal reflux disease without esophagitis; E78.5 Hyperlipidemia, unspecified; M85.88 Other specified disorders of bone density and structure, other site; Z95.818 Presence of other cardiac implants and grafts; Z79.01 Long term (current) use of anticoagulants; Z79.82 Long term (current) use of aspirin
CPT/HCPCS: 73030; 73502; 99214; A4565; G0463

== ENCOUNTER 2024-08-26 10:00 | Outpatient (RCR) | payer MEDICARE, SELFPAY | END 2024-08-27 10:56 | disposition home or self-care (01) | LOC: ANHCPREHAB 10:00 | PROVIDERS: PCP Nurse Practitioner Family; Visit Provider Internal Medicine Cardiovascular Disease | DX: Z95.5 Presence of coronary angioplasty implant and graft (principal) | CPT/HCPCS: 73030; 73502; 93798; 99214; A4565; G0463 ==

== ENCOUNTER 2024-09-09 10:35 | Outpatient (CLI) | payer MEDICARE, SELFPAY ==
--- NOTE | ~2024-09-09 | XR_ITS ---
XR clavicle RT Ordering provider: Rachel Friend NP History: . S49.90XA - Unspecified injury of shoulder and upper arm, ... . Comparison: None. FINDINGS: BONES: No definite acute fracture or dislocation. Possible lucency over the medial aspect of the righ t clavicle is not excluded. Clinical correlation and follow-up advised. JOINT SPACES: Postoperative changes seen in the right acromioclavicular joint. SOFT TISSUES: Normal. IMPRESSION: No definite acute osseous abnormality of the right clavicle. Possible lucency over the medial aspect of the right clavicle. Clinical correlation and follow-up advised. Reviewed, dictated and finalized at location A. IMPRESSION: No definite acute osseous abnormality of the right clavicle. Possible lucency o jong the medial aspect of the right clavicle. Clinical correlation and follow-up advised.
== END 2024-09-09 10:36 | disposition home or self-care (01) ==
LOC: GOSHIMG 10:36
PROVIDERS: PCP Orthopaedic Surgery; Visit Provider Nurse Practitioner Family
DX: S49.90XA Unspecified injury of shoulder and upper arm, unspecified arm, initial encounter (principal); X58.XXXA Exposure to other specified factors, initial encounter
CPT/HCPCS: 73000

== ENCOUNTER 2024-10-21 12:30 | Outpatient (RCR) | payer MEDICARE, SELFPAY ==
--- NOTE | 2024-09-28 10:45 | OPREHPOC ---
Outpatient Therapy Plan of Care This is a Multidisciplinary Plan of Care that may contain components documented by all disciplines (PT, OT, and ST.) PT Problem 1 PT Problem #1 Knowledge Deficit PT Goal 1 Goal / Goal Update Patient to demonstrate independence with HEP for improved self-reliance of symptom management. PT Problem 2 PT Problem #2 Pain PT Goal 1 Goal / Goal Update Patient to decrease subjective reports of pain to <2/10 for improved ADL tolerance. PT Problem 3 PT Problem #3 Impaired Range of Motion PT Goal 1 Goal / Goal Update 1. Pt to demonstrate an increase of R shoulder Active ROM of 0-160 deg to improve the ability to reach overhead. PT Problem 4 PT Problem #4 Impaired Strength PT Goal 1 Goal / Goal Update 1. 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 Pt will improve shoulder external rotation to 4 /5 to increase shoulder stability.
--- NOTE | 2024-09-28 10:46 | OPREHPOC ---
Outpatient Therapy Plan of Care This is a Multidisciplinary Plan of Care that may contain components documented by all disciplines (PT, OT, and ST.) PT Problem 1 PT Problem #1 Knowledge Deficit PT Goal 1 Goal / Goal Update Patient to demonstrate independence with HEP for improved self-reliance of symptom management. PT Problem 2 PT Problem #2 Pain PT Goal 1 Goal / Goal Update Patient to decrease subjective reports of pain to <2/10 for improved ADL tolerance. PT Problem 3 PT Problem #3 Impaired Range of Motion PT Goal 1 Goal / Goal Update 1. Pt to demonstrate an increase of R shoulder Active ROM of 0-160 deg to improve the ability to reach overhead. PT Problem 4 PT Problem #4 Impaired Strength PT Goal 1 Goal / Goal Update 1. 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 Pt will improve shoulder external rotation to 4 /5 to increase shoulder stability.
--- NOTE | 2024-09-28 10:46 | PTOPEVAL1 ---
Assessment and note entered by Lamin Olson PT Evaluation Information Assessment Status Evaluation Diagnosis R shoulder pain ICD-10 Condition Codes (PT) Pain in right elbow M25.521 Onset August 17 Subjective Information Pt reports she fell in her garden on August 17 and hit her shoulder on the fence. Pt states she urgent care and they performed x rays that were negative and they suspected a shoulder sprain. Pt states she noticed weakness in her R arm and has inability to reach over head without pain. Reported Pain Level Pain Score 1: Self Report Assessment PT Clinical Summary Patient presents to physical therapy with a primary issue of R shoulder pain since a fall in late July. Patient demonstrates shoulder weakness , pain, decreased mobility, abnormal posture that limits their ability to perform activities of daily living and functional movements. Patient has signs and symptoms consistent with rotator cuff injury such as external rotation weakness, atrophy of infraspinatus and tenderness at greater tubercle. Patient will benefit from skilled physical therapy to address the above listed deficits and return to prior level of function. Home exercise program instructed and written handout provided, exercises tolerated well with no adverse effects to note post-session. Patient was also educated on anatomy, prognosis, home modalities, and plan of care. Plan of Care Interventions Electrical Stimulation,Hot Pack/Cold Pack,Manual Therapy,Neuro Re-education,Therapeutic Activities, Therapeutic Exercise,Self-Care/Home Management, Ultrasound,Other PT Services Indicated Yes Treatment Frequency and 2x week 8 visits Duration These treatments will address the objective and functional deficits as defined above. The patient will be advanced safely and appropriately in order for the patient to progress towards his/her prior level of function. Additional exercises will be introduced and as well as a comprehensive home exercise program upon discharge, if needed, ?to ensure carryover of functional gains achieved in the clinic. This treatment plan has been reviewed and agreement upon by the patient.
--- NOTE | 2024-10-21 13:14 | PTOPDC ---
Assessment and note entered by Lamin Olson PT Evaluation Information Assessment Status Discharge Diagnosis R shoulder pain ICD-10 Condition Codes (PT) Pain in right shoulder M25.511 Onset August 17 Subjective Information Pt states she feels 95% overall and feels like she feels she just needs more strength and stability in her shoulder. Pt feels confident managing symptoms at home with home exercise program. Pt states she has appointment scheduled with ortho to discuss collar bone protrusion. Reported Pain Level Pain Score 0,1: Self Report Assessment PT Clinical Summary Patient's R shoulder has improved overall as evidenced by advancements in mobility, strength, and overall functional use of the RUE. Patient has decreased pain levels and has met therapy goals and is pleased with progress made towards the remaining goals. Patient to discharge from physical therapy this date and continue with updated home exercise program as instructed. Patient to contact physical therapist or primary care provider if questions or concerns arise. Plan of Care PT Services Indicated No
== END 2024-10-21 15:12 | disposition home or self-care (01) ==
LOC: ANHGOSHPT 12:30
PROVIDERS: PCP Nurse Practitioner Family; Visit Provider Family Medicine
DX: M25.511 Pain in right shoulder (principal)
CPT/HCPCS: 97110; 97112; 97161; 97530

== ENCOUNTER 2024-10-30 11:52 | Outpatient (CLI) | payer MEDICARE, SELFPAY ==
--- OUTSIDE RECORDS SUMMARY | 2024-10-30 11:55 | XMS_ITS | Encounter Summary ---
Author Organization [facility] Healthcare Address [address] [place] [address] Care Team Providers Care Lab Asst Name Role Phone Rachel Friend NP Primary Care Provider [phone] Todd Cedeno MD Unavailable [phone] Reason for Visit * Reason Comments Follow-up Discuss ablation Coronary Artery Disease SVT Encounter Details Date Type Department Care Team (Late st Contact Info) Description 10/30/2024 11:00 AM CDT Office Visit [facility] Medical [facility] Cardiology [address] [place] [id number] Rosa Cotto NP [address] [place], [place] [id number] Paroxysmal atrial fibrillation (HCC) (Primary Dx) Social History Tobacco Use Types Packs/Day Years Used Date Smoking Tobacco: Never Cigarettes Smokeless Tobacco: Never Alcohol Use Standard Drinks/Week Comments Yes 0 (1 standard drink = 0.6 oz pur e alcohol) [facility] Utilities Answer Date Recorded In the past 12 months has th e electric, gas, oil, or water company threatened to shut off services in your home? No 07/15/2024 Social Connection and Isolation Panel [NHANES] A nswer Date Recorded Frequency of Communication with Friends and Fami ly Not on file 07/15/2024 How often do you get togethe r with friends or relatives? Three times a week 07/15/2024 How often do you attend chur ch or restorationist services? Never 07/15/2024 Do you belong to any clubs o r organizations such as temple groups, unions, fraternal or athletic groups, or school groups? No 07/15/2024 How often do you attend meet ings of the clubs or organizations you belong to? Never 07/15/2024 Are you , , di vorced, , never , or living with a partner? 07/15/2024 AUDIT-C Answer Date Recorded Q1: How often do you have a drink containing alc ohol? 2-3 times a week 01/10/2023 Q2: How many drinks containi ng alcohol do you have on a typical day when you are drinking? 1 or 2 01/10/2023 Q3: How often do you have si x or more drinks on one occasion? Never 01/10/2023 Overall Financial Resource Strain (CARDIA) Answe r Date Recorded How hard is it for you to pa y for the very basics like food, housing, medical care, and heating? Not hard at all 07/15/2024 Hunger Vital Sign Answer Date Recorded Within the past 12 months, y ou worried that your food would run out before you got the money to buy more. Never true 07/16/19 25 Within the past 12 months, t he food you bought just didn't last and you didn't have money to get more. Never true 07/15/2024 PRAPARE - Transportation Answer Date Re corded In the past 12 months, has l ack of transportation kept you from medical appointments or from getting medications? No 06/21 In the past 12 months, has l ack of transportation kept you from meetings, work, or from getting things needed for daily living? No 07/15/2024 Housing Stability Vital Sign Answer Ze e Recorded In the last 12 months, was t here a time when you were not able to pay the mortgage or rent on time? No 07/15/2024 In the past 12 months, how m any times have you moved where you were living? 0 07/15/2024 At any time in the past 12 m [facility], were you homeless or living in a long-term (including now)? No 07/15/2024 Personal Safety Answer Date Recorded Have you ever been in or are you currently in a harmful physical or emotional relationship or is someone making you feel afraid or unsafe? 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 Gender Identity Female 12/12/2018 8:34 AM CDT Sexual Orientation Straight 12/12/2018 8: 34 AM CDT Occupation Industry Job Start Date Job End Date retired Not on file Not on file Not on file documented as of this encounter Last Filed Vital Signs Vital Sign Reading Time Taken Comments Blood Pressure 130/80 10/30/2024 10:51 AM CDT Pulse 77 10/30/2024 10:51 AM CDT Temperature - - Respiratory Rate - - Oxygen Saturation 97% 10/30/2024 10:51 AM CDT Inhaled Oxygen Concentration - - Weight 52.6 kg (116 lb) 10/30/2024 10:51 AM CDT Height 165.1 cm (5' 5) 10/30/2024 10:51 AM CDT Body Mass Index 19.3 10/30/2024 10:51 AM CDT documented in this encounter Patient Instructions * Patient Instructions* Rosa Cotto NP - 10/30/2024 11:00 AM CDT Hold diltiazem for the time being and monitor for any change in fatigue. documented in this encounter Plan of Treatment Scheduled Orders Name Type Priority Associated Diagnoses Orde r Schedule CBC with auto differential Lab Routine Paroxysmal atrial fibrillation (HCC) Expected: 11/02/2024, Expires: 10/30/2025 documented as of this encounter Visit Diagnoses Diagnosis Paroxysmal atrial fibrillation (HCC)- Primary Atrial fibrillation documented in this encounter Care Teams Lab Asst Relationship Specialty Start Date End Date Rachel Friend NP [address] [place] [address] PCP - General Family Medicine 11/26/23 Todd Cedeno MD [address] [place] [address] Consulting Physician Cardiology 07/15/24 documented as of this encounter
--- OUTSIDE RECORDS SUMMARY | 2024-10-30 11:55 | XMS_ITS | Encounter Summary ---
Author Organization [facility] Care Team Providers Care Area Field Manager Name Role Phone Tara Hudson MD Primary Care Provider [phone] Gege Herrera MD Primary Care Provider Rachel Friend METALLOGRAPHY TEACHER Primary Care Provider [phone] Emily Clements METALLOGRAPHY TEACHER Primary Care Provider [phone] Rachel Friend METALLOGRAPHY TEACHER Primary Care Provider [phone] Todd Cedeno MD Unavailable [phone] Encounter Details Date Type Department Care Team (Latest Contact Info) Description 02/06/2016 Orders Only [facility] ProviderAlhaji MD [address] [place] [id number] Social History Tobacco Use Types Packs/Day Years Used Date Smoking Tobacco: Never Assessed Comments Unknown Sex and Gender Information Value Date Recorded Sex Assigned at Not on file 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 Gender Identity Female 12/12/2018 8:34 AM CDT [...] on filedocumented in this encounter Care Teams Area Field Manager Relationship Specialty Start Date End Date Tara Hudson MD [address] [address] PCP - General 12/17/16 11/02/19 Gege Herrera MD [address] [address] PCP - General Family Medicine 11/03/19 10/16/20 Rachel Friend NP [address] [facility] [address] [place] [address] PCP - General Family Medicine 10/17/20 01/09/23 Emily Clements NP [address] [place] [address] PCP - General Nurse Practitioner 01/10/23 11/25/23 Rachel Friend, AIRAM [address] [place] [address] PCP - General Family Medicine 11/26/23 Todd Cedeno MD [address] [place] [address] Consulting Physician Cardiology 07/15/24 documented as of this encounter
--- OUTSIDE RECORDS SUMMARY | 2024-10-30 11:55 | XMS_ITS | Clinical Summary ---
Author Organization [facility] Address [address] [place] [address] Care Team Providers Care Head Of Operation And Logistics Name Role Phone Tara Hudson MD Primary Care Provider [phone] Source Comments [facility],non-owned Affiliates and Associated Physician Practices is amultiple site organization consisting of ambulatory clinics and hospital sitesin [place], [place], [place] and [place]. This disclosure is being madepursuant to the Care Everywhere program and may not contain all information available regarding this patient. Last updated 18.[facility] Allergies Active Allergy Reactions Criticality Noted Date Comments Clarithromycin GI Discomfort 05/27/2018 Erythromycin GI Discomfort 05/27/2018 Medications * Be aware that medications may not be up to date on this document. Alwaysverify current medications with the patient. 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 Gender Identity Not on file Sexual Orientation Not on file Last Filed Vital Signs Vital Sign Reading Time Taken Comments Blood Pressure 128/72 05/27/2018 12:26 PM LAY HEALTH ADVOCATE Pulse 80 05/27/2018 12:26 PM LAY HEALTH ADVOCATE Temperature 37 C (98.6 F) 05/27/2018 12:26 PM LAY HEALTH ADVOCATE Respiratory Rate 16 05/27/2018 12:26 PM LAY HEALTH ADVOCATE Oxygen Saturation 100% 05/27/2018 12:26 PM LAY HEALTH ADVOCATE Inhaled Oxygen Concentration - - Weight 52.2 kg (115 lb) 05/27/2018 12:26 PM LAY HEALTH ADVOCATE Height 162.6 cm (5' 4) 05/27/2018 12:26 PM LAY HEALTH ADVOCATE Body Mass Index 19.74 05/27/2018 12:26 PM LAY HEALTH ADVOCATE Plan of Treatment Health Maintenance Due Date Last Done Comments BONE DENSITY TESTING 1945 MEDICARE AWV 12 MONTHS 1945 HEPATITIS C SCREENING 03/24/1964 DTAP/TDAP/TD VACCINES (1 - Tdap) 1965 PNEUMOCOCCAL VACCINE 50+ (1 of 1 - PCV) 1996 ZOSTER VACCINE (1 of 2) 1996 Respiratory Syncytial Virus (RSV) Vaccine Pt: or over 60 yrs (1 - 1-dose 75+ series) 2021 COVID-19 VACCINE ( - 2023-2 5 season) 2023 DEPRESSION SCREENING 04/22/2024 INFLUENZA VACCINE (Season Ended) 2024 HEPATITIS B VACCINE Aged Out No longe [...] age to complete this topic Insurance MEDICARE MEDICARE MEDICARE Care Teams Head Of Operation And Logistics Relationship Specialty Start Date End Date Tara Hudson MD [address] [place] [address] PCP - General 12/12/12
--- OUTSIDE RECORDS SUMMARY | 2024-10-30 11:55 | XMS_ITS | Referral Summary ---
Author Organization [facility] Address [address] [place] [address] Care Team Providers Care Television Script Writer Name Role Phone Rachel Friend NP Primary Care Provider [phone] Todd Cedeno MD Unavailable [phone] Encounters Date Type Department Care Team Description 10/30/2024 11:00 AM CDT Office Visit [facility] Cardiology [address] [place] [address] [place] [address] [phone] Rosa Cotto NP Paroxysmal atrial fibrillation (HCC) (Primary Dx) 10/19/2024 Telephone [facility] Cardiology [address] [place] [address] [place] [address] [phone] Todd Cedeno MD 10/19/2024 7:45 AM CDT Ancillary Procedure [facility] Cardiology [address] [facility] [address] [place] [phone] Paroxysmal atrial fibrillation (HCC) (Primary Dx); Palpitations; Status post placement of implantable loop recorder; Syncope and collapse; SVT (supraventricular tachycardia) 10/16/2024 Telephone [facility] Cardiology [address] [facility] [address] [place] [address] [phone] Todd Cedeno MD 09/07/2024 Telephone [facility] Orthopedics and Sports Medicine [facility] [address] [place] [address] Dallas Caruso MD 09/07/2024 7:15 AM CDT Ancillary Procedure [facility] Cardiology [address] [place] [address] [place] [facility] [address] Status post placement of implantable loop recorder (Primary Dx); Syncope and collapse; SVT (supraventricular tachycardia); Palpitations 08/27/2024 8:00 AM CDT Ancillary Procedure [facility] Cardiology [address] [place] [address] [place] [address] [place] [phone] Palpitations; Status post placement of implantable loop recorder; Syncope and collapse; SVT (supraventricular tachycardia) 08/27/2024 Telephone [facility] Cardiology [facility] [address] [place] [phone] Todd Cedeno MD 08/26/2024 Orders Only [facility] Cardiology [facility] [address] [place] [phone] Rosa Cotto NP 08/07/2024 11:03 AM CDT - 08/07/2024 11:59 PM CDT Hospital Encounter [facility] Di[facility] Imaging [address] [place] [address] Left hip pain; Left knee pain, unspecified chronicity Discharge Disposition: Discharge to home or self care 08/07/2024 11:15 AM CDT Office Visit [facility] Orthopedics and Sports Medicine [address] [place] [address] [address] [place] [address] Dallas Caruso MD Trochanteric bursitis of left hip; Primary osteoarthritis of both knees from Last 3 Months Allergies Active Allergy [...] muscle spasms Active fexofenadine (MARIAM) 180 mg tablet Take 1 tablet (180 mg total) by mouth every morning Active meloxicam (MOBIC) 15 mg tablet Take 1 tablet (15 mg total) by mouth every morning Active multivitamin tablet Take 1 tablet by mouth every morning Active lutein 40 mg capsule Take by mouth every morning Active cholecalciferol (VITAMIN D-3) 2000 unit tablet Take 1 tablet (2,000 Units total) by mouth every morning Active biotin 5,000 mcg tablet, sublingual Place under the tongue every morning Active lisinopriL (PRINIVIL,ZESTR IL) 40 mg tablet Take 1 tablet (40 mg total) by mouth every morning 3 Active acetaminophen 500 mg capsule Take 1 capsule (500 mg total) by mouth every 6 (six) hours as needed for pain Active ALPRAZolam (XANAX) 0.25 mg tablet Take 0.5 tablets (0.125 mg total) by mouth nightly as needed 4 Active nitroglycerin (NITROSTAT) 0.4 mg SL tabletIndicatio ns:Atypical chest pain Place 1 tablet (0.4 mg total) under the tongue every 5 (five) minutes as needed for chest pain May repeat dose q 5 min, up to 3 doses total 90 tablet 07/03/19 Active calcium carb,gluc-mag gluc,ox 500 mg calcium- 250 mg tablet Take 1 tablet by mouth daily Active famotidine (PEPCID) 20 mg tablet Take 1 tablet (20 mg total) by mouth daily Active clopidogreL (PLAVIX) 75 mg tablet Take 1 tablet (75 mg total) by mouth daily 30 tablet 07/16/19 Active aspirin 81 mg enteric coated tablet Take 1 tablet (81 mg total) by mouth daily 30 tablet 07/16/19 Active omega-3 fatty acids-fish oil 300-1,000 mg capsule Take 2 capsules (2 g total) by mouth daily Active glucosamine/cho ndr stack A sod (OSTEO BI-FLEX ORAL) Take by mouth Active diltiazem (TIAZAC) 120 mg 24 hr capsuleIndicati ons:SVT (supraventricul ar tachycardia) Take 1 capsule (120 mg total) by mouth daily 90 capsule 3 5 07/29/19 Active rosuvastatin (CRESTOR) 20 mg tablet Take 1 tablet (20 mg total) by mouth daily 90 tablet 3 5 10/17/19 26 Active rosuvastatin (CRESTOR) 20 mg tablet Take 1 tablet (20 mg total) by mouth daily 30 tablet 11 5 10/17/19 Discontinu ed(Reorder ) Active Problems Problem Noted Date Diagnosed Date Coronary artery disease invo lving [place] coronary artery of [place] heart with angina pectoris 07/14/2024 Gastroesophageal reflux disease without esophagi tis 07/14/2024 Anxiety 07/14/2024 CAD in [place] artery 07/14/2024 Angina pectoris, unstable 07/14/2024 SVT (supraventricular tachycardia) 04/18/2023 Atypical chest pain 04/18/2023 Closed fracture of mandible 01/04/2023 Fall, initial encounter 12/03/2022 Open fracture of mandible 12/03/2022 Status post placement of implantable loop record er 07/17/2022 Overview (07/17/2022): [employer] LNQ22 Loop Recorder. Dx; Syncope, Tachycardia, Palpitations. [...] tricuspid insufficiency 12/02/2017 Overview (12/19/2018): Echo in 2014. Clinically she has no swelling. Spondylolisthesis, lumbar [...] 08/19/2007 Immunizations Immunization Administration Dates Next Due COVID-19 MRNA (MODERNA) .25 ML (25 MCG) VACCINE (6 MOS- 11 YRS) 12/22/2023 Influenza, Unspecified 12/22/2023 Social History Tobacco Use Types Packs/Day Years Used Date Smoking Tobacco: Never Cigarettes Smokeless Tobacco: Never Tobacco Cessation:Counseling Given: Not Answered Alcohol Use Standard Drinks/Week Comments Yes 0 (1 standard drink = 0.6 oz pur e alcohol) [facility] Utilities Answer Date Recorded In the past 12 months has e [facility], gas, oil, or water [employer] threatened to shut off services in your home? No 07/15/2024 Social Connection and Isolation Panel [NHANES] A nswer Date Recorded Frequency of Communication with Friends and Fami ly Not on file 07/15/2024 How often do you get togethe r with friends or relatives? Three times a week 07/15/2024 How often do you attend chur ch or baptist services? Never 07/15/2024 Do you belong to any clubs o r organizations such as anglican groups, unions, fraternal or athletic groups, or [...] any time in the past 12 m [facility], were you homeless or living in a jail (including now)? No 07/15/2024 Personal Safety Answer Date Recorded Have you ever been in or are you currently in a harmful physical or emotional relationship or is someone making you feel afraid or unsafe? 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 Gender Identity Female 12/12/2018 8:34 AM CDT Sexual Orientation Straight 12/12/2018 8: 34 AM CDT Occupation Industry Job Start Date Job End Date retired Not on file Not on file Not on file Last Filed Vital Signs Vital Sign Reading Time Taken Comments Blood Pressure 130/80 10/30/2024 10:51 AM CDT Pulse 77 10/30/2024 10:51 AM CDT Temperature 36.6 C (97.9 F) 07/15/2024 12:09 PM CDT Respiratory Rate 18 07/15/2024 12:09 PM CDT Oxygen Saturation 97% 10/30/2024 10:51 AM CDT Inhaled Oxygen Concentration - - Weight 52.6 kg (116 lb) 10/30/2024 10:51 AM CDT Height 165.1 cm (5' 5) 10/30/2024 10:51 AM CDT Body Mass Index 19.3 10/30/2024 10:51 AM CDT Plan of Treatment Not on file Medical Devices Implanted Type Area Director Hydrogen Storage Engineering Device Identifier Shelf Expiration Date Model / Serial / Lot Implantable Loop Recorder Implantable Loop Recorder Chest Cast Vascular System Closure Repair Femoral Artery Suture Mediated Perclose Prostyle 99886-53 - S0 - [id number] Implanted:Qty: 1 on 07/14/2024 by Xu Bhardwaj MD at [facility] Other - see comments Cast Vascular 03/21/2026 [id number] / 0 / [id number] Medtronic [employer] Infuse Kit Xs Graft Bone Rhbmp-2 Bovine Collagen Lumbar Taper [id number] - [id number] Implanted:Qty: 1 on 12/05/2022 by Ion Vergara MD at [facility] N/A: Ronald [employer] Inc [id number] 04/21/2024 [id number] / / [id number] C [employer] Vitoss Void Filler Foam Pack Bioactive Substitute 2.5ml Bone [id number] - [id number] Implanted:Qty: 1 on 12/05/2022 by Ion Vergara MD at [facility] N/A: Ronald [place] [employer] [id number] 06/19/[id number] / / [id number] [employer] Cornelius Synergy Xd Monorail 2.75mm 38mm 144cm Delivery System 1 Access [id number] - S0 - [id number] Implanted:Qty: 1 on 07/14/2024 by Xu Bhardwaj MD at [facility] [employer] Cornelius 11/27/2025 [id number] / 0 / [id number] Explanted Type Area Director Hydrogen Storage Engineering Device Identifier Shelf Expiration Date Model / Serial / Lot [place] Craniomaxillofacial Leibinger [place] 2 2mm 5mm Self Tap Cross Pin Maxillofacial 50- - [id number] Implanted:Qty: 8 on 12/05/2022 by Ion Vergara MD at [facility] Explanted:Qty: 8 on 01/10/2023 at [facility] [place] Mandible [place] Craniomaxillofacial 50- / / [place] Craniomaxillofacial Leibinger [place] 2 Smart Lock 9 Hole Mandible Small Plate Bone [id number] - [id number] Implanted:Qty: 2 on 12/05/2022 by Ion Vergara MD at [facility] Explanted:Qty: 2 on 01/10/2023 at [facility] [place] Mandible [place] Craniomaxillofacial [id number] / / [place] Craniomaxillofacial Leibinger [place] 2 Smartlock 2mm 8mm Self Drill Lock 50- - [id number] Implanted:Qty: 10 on 12/05/2022 by Ion Vergara MD at [facility] Explanted:Qty: 10 on 01/10/2023 at [facility] [place] Mandible Elvia Craniomaxillofacial [id number] / / [place] Craniomaxillofacial 16 Hole Maxillofacial 1.5mm Mini Plate Bone [id number] - [id number] Implanted:Qty: 1 on 12/05/2022 by Ion Vergara MD at [facility] Explanted:Qty: 1 on 01/10/2023 by Ion Vergara MD at [facility] Center Mandible [place] Craniomaxillofacial [id number] / / [place] Craniomaxillofacial Leibinger [place] 2 2mm 8mm Lock Cross Pin Mandibular Screw [id number] - [id number] Implanted:Qty: 2 on 12/05/2022 by Ion Vergara MD at [facility] Explanted:Qty: 2 on 01/10/2023 at [facility] Center Mandible [place] Craniomaxillofacial [id number] / / [place] Craniomaxillofacial Leibinger [place] 2 2mm 10mm Lock Cross Pin Maxillofacial Screw [id number] - [id number] Implanted:Qty: 2 on 12/05/2022 by Ion Vergara MD at [facility] Explanted:Qty: 2 on 01/10/2023 at [facility] Center Mandible Elvia Craniomaxillofacial [id number] / / Elvia Craniomaxillofacial Leibinger [place] 2 2mm 12mm Lock Cross Pin Maxillofacial Screw [id number] - [id number] Implanted:Qty: 2 on 12/05/2022 by Ion Vergara MD at [facility] Explanted:Qty: 2 on 01/10/2023 at [facility] Center Mandible Elvia Craniomaxillofacial [id number] / / Elvia Craniomaxillofacial Plate Mini 8mm Mndb [address] Condensed 2mm Screw Bone Ti [id number] - [id number] Implanted:Qty: 1 on 12/05/2022 by Ion Vergara MD at [facility] Explanted:Qty: 1 on 01/10/2023 at [facility] Center Mandible Elvia Craniomaxillofacial [id number] / / Procedures Procedure Name Priority Date/Time Associated Diagnosis Comments DEVICE CHECK - REMOTE Routine 10/19/2024 2:54 PM CDT Palpitations Status post placement of implantable loop recorder Syncope and collapse SVT (supraventricular tachycardia) DEVICE CHECK - REMOTE Routine 09/07/2024 12:40 PM CDT Syncope and collapse SVT (supraventricular tachycardia) Palpitations DEVICE CHECK - REMOTE Routine 08/27/2024 11:03 AM CDT Palpitations Status post placement of implantable loop recorder Syncope and collapse SVT (supraventricular tachycardia) [place] ARTHROCENTESIS ASPIR&/INJ MAJOR JT/BURSA W/O US Routine 08/07/2024 11:15 AM CDT Primary osteoarthritis of both knees AZ ARTHROCENTESIS ASPIR&/INJ MAJOR JT/BURSA W/O US Routine 08/07/2024 11:15 AM CDT Trochanteric bursitis of left hip XR KNEE LEFT 1 OR 2 VIEWS Schedule Routine, Read Routine (OP Routine) 08/07/2024 11:12 AM CDT Left knee pain, unspecified chronicity XR HIP LEFT 2 OR 3 VIEWS Schedule Routine, Read Routine (OP Routine) 08/07/2024 11:12 AM CDT Left hip pain from Last 3 Months Results * DEVICE CHECK - REMOTE (10/19/2024 2:54 PM CDT) Anatomical Region Laterality Modality Other Narrative 10/26/2024 7:59 AM CDT [employer] LNQ22 Loop Recorder. Dx; Syncope, Tachycardia, Palpitations, PAF. DOI 06/15/2022-Fleissner. Mirza. [facility] remote monitoring. Routine ILR remote. Normal device function. Battery function-Good. Presenting rhythm: VS, regular 60-70 bpm. Medications: Plavix, ASA 81 mg, Diltiazem. Counters since last scheduled transmission on 09/07/2024. --1 Tachy (Lifetime-109) recorded on 10/17/24, egm SVT-Afib 167 bpm, correlated with Symptom episode. --0 Lorne --0 Pause --3 Symptom (Lifetime-14) episodes, (2) recorded on 10/17/24 and (1) recorded on 09/27/24. egm's SVT-Afib 110-180 bpm. --15 AF (Lifetime-30) egm's AT/AF with max duration of 1 hour 22 minutes on 09/27/24, v-rate 80-158 bpm. See scanned report. [facility] remote f/u 11/30/2024. Mally Payton RN Todd Cedeno MD CV CARDIAC [facility] Final Result * DEVICE CHECK - REMOTE (09/07/2024 12:40 PM CDT) Anatomical Region Laterality Modality Other Narrative 10/26/2024 7:59 AM CDT Medtronic LNQ22 Loop Recorder. Dx; Syncope, Tachycardia, Palpitations, PAF. DOI 06/15/2022-Fleissner. Mirza. [facility] remote monitoring. Routine ILR remote. Normal device function. Battery function-Good. Presenting rhythm: VS, regular 75 bpm. Medications: Plavix, ASA 81 mg, Diltiazem. Counters since last scheduled transmission on 07/27/2024. --3 Tachy (Lifetime-108) egm's SVT 158-176 bpm. --0 Lorne --0 Pause --1 Symptom (Lifetime-11), egm SR-ST with PVC's, 90-110 bpm, w/burst of SVT @ 150 bpm for 1 minute 20 seconds. --14 AF (Lifetime-15) egm's AT/AF with max duration of 28 minutes. See scanned report. [facility] remote f/u 10/19/2024. Mally Payton RN Todd Cedeno MD CV CARDIAC SERVICES [facility] Final Result * DEVICE CHECK - REMOTE (08/27/2024 11:03 AM CDT) Anatomical Region Laterality Modality Other Narrative 08/27/2024 12:00 PM CDT Medtronic LNQ22 Loop Recorder. Dx; Syncope, Tachycardia, Palpitations. DOI 06/15/2022-Fleissner. Mirza. [facility] remote monitoring. Unscheduled loop recorder remote transmission. Patient called the office and reported having a tachycardia episode and having light headedness. Review of remote report reveals; Presenting rhythm: V sense, sinus arrhythmia at 60 beats per minute. 1-Tachy episode occurred on 08/26/2024 at 18:21, lasting 24 seconds at 158 bpm, iegm SVT. 1-Symptom episode occurred 08/26/2024 @ 16:48, iegm ST with frequent PAC's 98-110 bpm, a burst of SVT 150-160 bpm. 3 AF episodes occurred on 08/26/2024, iegm's confirms Afib, total duration 1 hour duration. 7 AF episodes occurred on 08/11/24, available iegm's Afib, 1 hour and 50 minutes total duration time. Scheduled carelink remote 09/07/2024. Mally Payton, RN us Todd Cedeno MD [facility] Final Result * [place] ARTHROCENTESIS ASPIR&/INJ MAJOR JT/BURSA W/O US (08/07/2024 11:15 AM CDT) Dallas Mcdowell MD - 08/07/2024 11:15 AM CDT Dallas Caruso MD 08/07/2024 11:27 AM Large Joint (Hip, Knee, Shoulder) Injection: bilateral knee Performed by: Dallas Caruso MD Authorized by: Dallas Caruso MD Large Joint Injection/Aspiration: Consent Given by: Patient Timeout: prior to procedure the correct patient, procedure, and site was verified Verbal consent obtained: Yes Supporting Documentation: Indications: Pain Procedure Details: Location: Knee Site: Bilateral knee Prep: patient was prepped using a clean technique Needle Size: 18 G Approach: Superior lateral Medications Right Large Joint Injection: 48 mg hylan g-f 20 48 mg/6 mL Medications Left Large Joint Injection: 48 mg hylan g-f 20 48 mg/6 mL Patient tolerance: Patient tolerated the procedure well with no immediate complications us Dallas Caruso MD IN CLINIC/BEDSIDE ORDERABLES Final Result * AZ ARTHROCENTESIS ASPIR&/INJ MAJOR JT/BURSA W/O US (08/07/2024 11:15 AM CDT) Dallas Mcdowell MD - 08/07/2024 11:15 AM CDT Dallas Caruso MD 08/07/2024 11:27 AM Large Joint (Hip, Knee, Shoulder) Injection: [...] MD IN CLINIC/BEDSIDE ORDERABLES Final Result * XR Knee Left 1 or 2 Views (08/07/2024 11:12 AM CDT) Anatomical Region Laterality Modality Lower Extremities, Knee Left Computed Radiography 08/07/2024 11:1 6 AM CDT Narrative 08/07/2024 11:16 AM CDT EXAM DESCRIPTION: XR KNEE LEFT 1 OR 2 VIEWS REASON FOR STUDY: pain COMPARISON: None. FINDINGS: Images reveal no acute fractures or dislocations. There is well preserved tibiofemoral and patellofemoral joint space with a very tiny amount of osteophyte formation. No abnormal bone destruction noted. Soft tissues are normal. IMPRESSION: Minimal degenerative changes left knee. THIS IS AN ELECTRONICALLY VERIFIED FINAL REPORT 08/07/2024 11:16 AM - Electronically signed by Dallas Caruso T: Report ID: [id number] Reading Location: [place] [address] Procedure Note Dallas Caruso MD - 08/07/2024 EXAM DESCRIPTION: XR KNEE LEFT 1 OR 2 VIEWS REASON FOR STUDY: pain COMPARISON: None. FINDINGS: Images reveal no acute fractures or dislocations. There is well preserved tibiofemoral and patellofemoral joint space with a very tiny amount of osteophyte formation. No abnormal bone destruction noted. Soft tissuesare normal. IMPRESSION: Minimal degenerative changes left knee. THIS IS AN ELECTRONICALLY VERIFIED FINAL REPORT 08/07/2024 11:16 AM - Electronically signed by Dallas Caruso T: Report ID: [id number] Reading Location: [place] [address] us Dallas Caruso MD IMG XR PROCEDURES Final Resu lt * XR Hip Left 2 or 3 Views (08/07/2024 11:12 AM CDT) Anatomical Region Laterality Modality Lower Extremities, Hip, Pelvis Left C omputed Radiography 08/07/2024 11:1 4 AM CDT Narrative 08/07/2024 11:15 AM CDT EXAM DESCRIPTION: XR HIP LEFT 2 OR 3 VIEWS REASON FOR STUDY: pain COMPARISON: AP pelvis from 12/03/2022 FINDINGS: Two views of the left hip are reviewed. These images reveal no acute fractures or dislocations. The left femoral head is round and smooth and position within a normally formed acetabulum. The hip joint space is well maintained. Extensive surgical hardware is present in the lower lumbosacral spine. This includes screws across the SI joints. Compared to previous x-rays there is no change. IMPRESSION: Normal left hip. Evidence of extensive spinal surgery. THIS IS AN ELECTRONICALLY VERIFIED FINAL REPORT 08/07/2024 11:15 AM - Electronically signed by Dallas METZGER T: Report ID: [id number] Reading Location: [place] [address] Procedure Note Dallas Caruso MD - 08/07/2024 EXAM DESCRIPTION: XR HIP LEFT 2 OR 3 VIEWS REASON FOR STUDY: pain COMPARISON: AP pelvis from 12/03/2022 FINDINGS: Two views of the left hip are reviewed. These images reveal no acute fractures or dislocations. The left femoral head is round and smooth and position within a normally formed acetabulum. The hip joint space is well maintained. Extensive surgical hardware is present in the lowerlumbosacral spine. This includes screws across the SI joints. Compared to previous x-rays there is no change. IMPRESSION: Normal left hip. Evidence of extensive spinal surgery. THIS IS AN ELECTRONICALLY VERIFIED FINAL REPORT 08/07/2024 11:15 AM - Electronically signed by Dallas METZGER T: Report ID: [id number] Reading Location: [place] [address] Dallas Caruso MD IMG XR PROCEDURES Final Resu lt from Last 3 Months Insurance MEDICARE [facility] MEDICARE [facility] MEDICARE [employer] MEDICARE SUPPLEMENT MEDICARE [facility] Advance Directives For more information, please contact: [phone] Documents on File Type Date Recorded Patient Infant Nanny Expl anation ADVANCE DIRECTIVE 08/21/2012 12:00 AM LIVIN G WILL ADVANCE DIRECTIVE 08/21/2012 12:00 AM POWER OF PIN MACHINE TENDER FINANCIAL/MEDICAL * Full Code (Latest Code Status on File) Date Activated Date Inactivated Comments 07/14/2024 12:14 PM 07/15/2024 6:47 PM * Full Code Date Activated Date Inactivated Comments 12/04/2022 12:40 AM 12/07/2022 8:03 PM Care Teams Television Script Writer Relationship Specialty Start Date End Date Rachel Friend NP [address] [place] [address] PCP - General Family Medicine 11/26/23 Todd Cedeno MD [address] [facility] [address] Consulting Physician Cardiology 07/15/24
--- OUTSIDE RECORDS SUMMARY | 2024-10-30 11:55 | XMS_ITS | Clinical Summary ---
Author Organization [facility] Address [address] [place] [address] Care Team Providers Care Recruiting Coordinator Name Role Phone Rachel Friend NP Primary Care Provider [phone] Todd Cedeno MD Unavailable [phone] Allergies Active Allergy Reactions Criticality Noted Date [...] up to 3 doses total 90 tablet 5 07/03/19 Active calcium carb,gluc-mag gluc,ox 500 mg calcium- 250 mg tablet Take 1 tablet by mouth daily Active famotidine (PEPCID) 20 mg tablet Take 1 tablet (20 mg total) by mouth daily Active clopidogreL (PLAVIX) 75 mg tablet Take 1 tablet (75 mg total) by mouth daily 30 tablet 5 07/16/19 Active aspirin 81 mg enteric coated tablet Take 1 tablet (81 mg total) by mouth daily 30 tablet 5 07/16/19 Active omega-3 fatty acids-fish oil 300-1,000 mg capsule Take 2 capsules (2 g total) by mouth daily Active glucosamine/cho ndr stack A sod (OSTEO BI-FLEX ORAL) Take by mouth Active diltiazem (TIAZAC) 120 mg 24 hr capsuleIndicati ons:SVT (supraventricul ar tachycardia) Take 1 capsule (120 mg total) by mouth daily 90 capsule 5 07/29/19 Active rosuvastatin (CRESTOR) 20 mg tablet Take 1 tablet (20 mg total) by mouth daily 90 tablet 5 10/17/19 26 Active rosuvastatin (CRESTOR) 20 mg tablet Take 1 tablet (20 mg total) by mouth daily 30 tablet 5 10/17/19 Discontinu ed(Reorder ) Active Problems Problem Noted Date Diagnosed Date 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 Dx; Syncope, Tachycardia, Palpitations. DOI 06/15/2022-Fleissner. Mirza. ISORG remote monitoring. Visit for wound check 06/22/2022 [...] 10/30/2024 11:00 AM CDT Office Visit [facility] Cardiology [address] [place] [address] [place] [phone] Rosa Cotto NP Paroxysmal atrial fibrillation (HCC) (Primary Dx) 10/19/2024 7:45 AM CDT Ancillary Procedure [facility] Cardiology [address] [place] [address] [place] [phone] Paroxysmal atrial fibrillation (HCC) (Primary Dx); Palpitations; Status post placement of implantable loop recorder; Syncope and collapse; SVT (supraventricular tachycardia) 10/19/2024 Telephone [facility] Cardiology [address] [place] [address] [place] [phone] Todd Cedeno MD 10/16/2024 Telephone [facility] Cardiology [address] [place] [address] [place] [phone] Todd Cedeno MD 09/07/2024 7:15 AM CDT Ancillary Procedure [facility] Cardiology [address] [place] [address] [place] [phone] Status post placement of implantable loop recorder (Primary Dx); Syncope and collapse; SVT (supraventricular tachycardia); Palpitations 09/07/2024 Telephone [facility] Orthopedics and Sports Medicine [address] [place] [address] [place] [phone] Dallas Caruso MD 08/27/2024 8:00 AM CDT Ancillary Procedure [facility] Cardiology [address] [place] [address] [place] [phone] Palpitations; Status post placement of implantable loop recorder; Syncope and collapse; SVT (supraventricular tachycardia) 08/27/2024 Telephone [facility] Cardiology [address] [place] [address] Todd Cedeno MD 08/26/2024 Orders Only [facility] Cardiology [address] [place] [address] Rosa Cotto NP 08/07/2024 11:15 AM CDT Office Visit [facility] Orthopedics and Sports Medicine [facility] [facility] [address] [place] [phone] Dallas Caruso MD Trochanteric bursitis of left hip; Primary osteoarthritis of both knees 08/07/2024 11:03 AM CDT - 08/07/2024 11:59 PM CDT Hospital Encounter [facility] Diag Imaging [facility] [place] [address] Left hip pain; Left knee pain, unspecified chronicity Discharge Disposition: Discharge to home or self care from Last 3 Months Immunizations Immunization Administration Dates Next Due COVID-19 MRNA (MODERNA) .25 ML (25 MCG) VACCINE (6 MOS- 11 YRS) 12/22/2023 Influenza, Unspecified 12/22/2023 Surgical History Surgery Date Site/Laterality Comments HAND [...] ORIF Mandible AUGMENTATION MAMMOPLASTY 04/22/1984 - 04/21/1985 CARDIAC CATHETERIZATION 07/14/2024 N/A Procedure: PCI BALJEET MAJOR CORONARY C9600 - [id number]; Surgeon: Xu Bhardwaj MD; Location: [facility] CARDIAC TURBINE ROOM ATTENDANT; Service: Cardiovascular; Laterality: N/A; Medical devices from this surgery are in the Medical Devices section. CARDIAC CATHETERIZATION 07/14/2024 N/A Procedure: Percutaneous Coronary Lithotripsy W/ PCI (+) [id number]; Surgeon: Xu Bhardwaj MD; Location: [facility] CARDIAC TURBINE ROOM ATTENDANT; Service: Cardiovascular; Laterality: N/A; Medical devices from this surgery are in the Medical Devices section. CARDIAC CATHETERIZATION 07/14/2024 N/A Procedure: IVUS NON-COR 1ST VESSEL; Surgeon: Xu Bhardwaj MD; Location: [facility] CARDIAC TURBINE ROOM ATTENDANT; Service: Cardiovascular; Laterality: N/A; Medical devices from this surgery are in the Medical Devices section. Medical History Medical History Date Comments HL [...] drink = 0.6 oz pur e alcohol) [facility] Utilities Answer Date Recorded In the past 12 months has e [employer], gas, oil, or water [employer] threatened to shut off services in your home? No 07/15/2024 Social Connection and Isolation Panel [NHANES] A nswer Date Recorded Frequency of Communication with Friends and Fami ly Not on file 07/15/2024 How often do you get togethe r with friends or relatives? Three times a week 07/15/2024 How often do you attend chur ch or mandaeism services? Never 07/15/2024 Do you belong to any clubs o r organizations such as gnosticism groups, unions, fraternal or athletic groups, or [...] any time in the past 12 m [facility], were you homeless or living in a usp (including now)? No 07/15/2024 Personal Safety Answer Date Recorded Have you ever been in or are you currently in a harmful physical or emotional relationship or is someone making you feel afraid or unsafe? 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 Gender Identity Female 12/12/2018 8:34 AM [...] 10/30/2024 10:51 AM CDT Plan of Treatment Health Maintenance Due Date Last Done Comments Depression Screening 1945 Hepatitis C Screening 1945 Hepatitis B Screening 1964 Zoster Vaccine (2 of 3) 07/25/2007 05/30/2007 Well Visit 65+ 2011 DTaP/Tdap/Td Vaccine (2 - Td or Tdap) 08/22/2019 08/21/2009 Osteoporosis Screening-Bone Density Scan 11/12/2020 11/12/2018, 11/10/2018 Influenza Vaccine (#1) 2024 4, 12/28/2020, 01/05/2020, Additional history exists Fall Risk Assessment 07/15/2025 07/15/2024 Pneumococcal vaccine 65+ Completed 017, 02/03/2015, 01/20/2015, Additional history exists Breast Cancer Screening-Mammogram Discontinued , 02/10/2018 Medical Devices Implanted Type Area Guest History Clerk Device Identifier Shelf Expiration Date Model / Serial / Lot Implantable Loop Recorder Implantable Loop Recorder Chest Cast Vascular System Closure Repair Femoral Artery Suture Mediated Perclose Prostyle 67981-71 - S0 - [id number] Implanted:Qty: 1 on 07/14/2024 by Xu Bhardwaj MD at [facility] Other - see comments Cast Vascular 03/21/2026 21498-10 / 0 / [id number] Medtronic Inc Infuse Kit Xs Graft Bone Rhbmp-2 Bovine Collagen Lumbar Taper 9172541 - [id number] Implanted:Qty: 1 on 12/05/2022 by Ion Vergara MD at [facility] N/A: Ronald Medtronic Inc [id number] 04/21/2024 [id number] / / [id number] C Elvia [employer] Vitoss Void Filler Foam Pack Bioactive Substitute 2.5ml Bone 4014-2108 - [id number] Implanted:Qty: 1 on 12/05/2022 by Ion Vergara MD at [facility] N/A: Ronald [employer] [id number] 06/19/202321017629-3644 / / [id number] Watson Scientific Cornelius Synergy Xd Monorail 2.75mm 38mm 144cm Delivery System 1 Access [id number] - S0 - [id number] Implanted:Qty: 1 on 07/14/2024 by Xu Bhardwaj MD at [facility] [employer] Scientific Cornelius 11/27/2025 [id number] / 0 / [id number] Explanted Type Area Guest History Clerk Device Identifier Shelf Expiration Date Model / Serial / Lot Grafton Craniomaxillofacial Leibinger [place] 2 2mm 5mm Self Tap Cross Pin Maxillofacial [id number] - [id number] Implanted:Qty: 8 on 12/05/2022 by Ion Vergara MD at [facility] Explanted:Qty: 8 on 01/10/2023 at [facility] Mandible Elvia Craniomaxillofacial [id number] / / Grafton Craniomaxillofacial Leibinger [place] 2 Smart Lock 9 Hole Mandible Small Plate Bone [id number] - [id number] Implanted:Qty: 2 on 12/05/2022 by Ion Vergara MD at [facility] Explanted:Qty: 2 on 01/10/2023 at [facility] Mandible Grafton Craniomaxillofacial [id number] / / Elvia Craniomaxillofacial Leibinger [place] 2 Smartlock 2mm 8mm Self Drill Lock 50- - [id number] Implanted:Qty: 10 on 12/05/2022 by Ion Vergara MD at [facility] Explanted:Qty: 10 on 01/10/2023 at [facility] Mandible Grafton Craniomaxillofacial 50- / / Grafton Craniomaxillofacial 16 Hole Maxillofacial 1.5mm Mini Plate Bone 92-35228 - [id number] Implanted:Qty: 1 on 12/05/2022 by Ion Vergara MD at [facility] Explanted:Qty: 1 on 01/10/2023 by Ion Vergara MD at [facility] Mandible Grafton Craniomaxillofacial [id number] / / Grafton Craniomaxillofacial Leibinger [place] 2 2mm 8mm Lock Cross Pin Mandibular Screw 7359511 - [id number] Implanted:Qty: 2 on 12/05/2022 by Ion Vergara MD at [facility] Explanted:Qty: 2 on 01/10/2023 at [facility] Mandible Elvia Craniomaxillofacial [id number] / / Elvia Craniomaxillofacial Leibinger [place] 2 2mm 10mm Lock Cross Pin Maxillofacial Screw 5507079 - [id number] Implanted:Qty: 2 on 12/05/2022 by Ion Vergara MD at [facility] Explanted:Qty: 2 on 01/10/2023 at [facility] Mandible Grafton Craniomaxillofacial [id number] / / Grafton Craniomaxillofacial Leibinger [place] 2 2mm 12mm Lock Cross Pin Maxillofacial Screw 8158146 - [id number] Implanted:Qty: 2 on 12/05/2022 by Ion Vergara MD at [facility] Explanted:Qty: 2 on 01/10/2023 at [facility] Mandible Grafton Craniomaxillofacial [id number] / / Elvia Craniomaxillofacial Plate Mini 8mm Mndb [address] Condensed 2mm Screw Bone Ti [id number] - [id number] Implanted:Qty: 1 on 12/05/2022 by Ion Vergara MD at [facility] Explanted:Qty: 1 on 01/10/2023 at [facility] Mandible Elvia Craniomaxillofacial [id number] / / Procedures Procedure Name Priority Date/Time [...] recorder Syncope and collapse SVT (supraventricular tachycardia) AL ARTHROCENTESIS ASPIR&/INJ MAJOR JT/BURSA W/O US Routine 08/07/2024 11:15 AM CDT Primary osteoarthritis of both knees AL ARTHROCENTESIS ASPIR&/INJ MAJOR JT/BURSA W/O US Routine [...] See scanned report. [facility] remote f/u 11/30/2024. Malyl Payton, RN Todd Cedeno MD [facility]AC [facility] Final Result * DEVICE CHECK - REMOTE [...] scanned report. [facility] remote f/u 10/19/2024. Mally Payton, RN Todd Cedeno MD CV CARD[facility]AC SERVICES PROCE JOANN Final Result * DEVICE CHECK - REMOTE (08/27/2024 11:03 AM CDT) Anatomical Region Laterality Modality Other Narrative 08/27/2024 12:00 PM CDT The Hitch LNQ22 Loop Recorder. Dx; Syncope, Tachycardia, Palpitations. [...] Scheduled [facility] remote 09/07/2024. Mally Payton, RN Todd Cedeno MD CV CARDIAC SERVICES PROCE DURES Final Result * AL ARTHROCENTESIS ASPIR&/INJ MAJOR JT/BURSA W/O US (08/07/2024 11:15 AM CDT) Narrative Dallas Caruso MD - 08/07/2024 11:15 AM CDT Dallas [...] MD IN CLINIC/BEDSIDE ORDERABLES Final Result * AL ARTHROCENTESIS ASPIR&/INJ MAJOR JT/BURSA W/O US (08/07/2024 11:15 AM CDT) Narrative Dallas Caruso MD - 08/07/2024 11:15 AM CDT Dallas [...] signed by Dallas Caruso T: Report ID: [id number] Reading Location: [place] [address] Procedure Note Dallas Caruso MD - 08/07/2024 [...] signed by Dallas Caruso T: Report ID: [id number] Reading Location: [place] [address] us Dallas Caruso MD IMG XR PROCEDURES [...] 11:15 AM - Electronically signed by Dallas Caruso T: Report ID: [id number] Reading Location: [place] [address] Procedure Note Dallas Caruso MD - 08/07/2024 [...] 11:15 AM - Electronically signed by Dallas Caruso T: Report ID: [id number] Reading Location: [place] [address] Dallas Caruso MD IMG XR PROCEDURES Final Resu lt from Last 3 Months Insurance MEDICARE [facility] MEDICARE [facility] MEDICARE BLUE CROSS MEDICARE SUPPLEMENT MEDICARE [facility] Advance Directives For more information, please contact: [phone] Documents on File Type Date Recorded Patient Corporate Security Manager Jacquelyn cohen ADVANCE DIRECTIVE 08/21/2012 12:00 AM TJ PEREZ ADVANCE DIRECTIVE 08/21/2012 12:00 AM POWER OF RN NURSERY FINANCIAL/MEDICAL * Full Code (Latest Code Status on File) Date Activated Date Inactivated Comments 07/14/2024 12:14 PM 07/15/2024 6:47 PM * Full Code Date Activated Date Inactivated Comments 12/04/2022 12:40 AM 12/07/2022 8:03 PM Care Teams Recruiting Coordinator Relationship Specialty Start Date End Date Rachel Friend NP [address] [place] [address] PCP - General Family Medicine 11/26/23 Todd Cedeno MD [address] [place] [address] Consulting Physician Cardiology 07/15/24
--- OUTSIDE RECORDS SUMMARY | 2024-10-30 11:55 | XMS_ITS | Encounter Summary ---
Author Organization [facility] Facility Care Team Providers Care Fruit Peeler Name Role Phone Tara Hudson MD Primary Care Provider [phone] Gege Herrera MD Primary Care Provider Rachel Friend SPONSORSHIP MANAGER Primary Care Provider [phone] Emily Clements SPONSORSHIP MANAGER Primary Care Provider [phone] Rachel Friend SPONSORSHIP MANAGER Primary Care Provider [phone] Todd Cedeno MD Unavailable [phone] Encounter Details Date Type Department Care Team (Latest Contact Info) Description 12/02/2017 Orders Only [facility] CLINCONV ProviderAlhaji MD [address] [place] [address] Social History Tobacco Use Types Packs/Day Years Used Date Smoking Tobacco: Never Assessed Comments Unknown Sex and Gender Information Value Date Recorded Sex Assigned at Not on file 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 Gender Identity Female 12/12/2018 8:34 AM CDT [...] on filedocumented in this encounter Care Teams Fruit Peeler Relationship Specialty Start Date End Date Tara Hudson MD [address] [facility] [address] [place] [address] PCP - General 12/17/16 11/02/19 Gege Herrera MD [address] [address] PCP - General Family Medicine 11/03/19 10/16/20 Rachel Friend NP [address] [facility] [address] [place] [address] PCP - General Family Medicine 10/17/20 01/09/23 Emily Clements NP [address] [place] [address] PCP - General Nurse Practitioner 01/10/23 11/25/23 Rachel Friend, AIRAM [address] [place] [address] PCP - General Family Medicine 11/26/23 Todd Cedeno MD [address] [place] [address] Consulting Physician Cardiology 07/15/24 documented as of this encounter
--- OUTSIDE RECORDS SUMMARY | 2024-10-30 11:55 | XMS_ITS | Clinical Summary ---
Author Organization [employer] [facility] Address [address] [place] [address] Care Team Providers Care Creative Services Director Name Role Phone Emily Tejada MD Primary [...] Maternal Grandmother Aura Zieglerer Stroke Maternal Grandmother Auar Hogue Other Mother Suri Relation Name Status [...] Comments Blood Pressure 132/82 05/31/2022 11:05 AM DIAMOND SAWER Pulse 100 12/22/2021 12:26 PM CDT Temperature 36.7 C (98.1 F) 01/02/2022 10:54 AM CDT Respiratory Rate 16 01/02/2022 10:54 AM CDT Oxygen Saturation 100% 12/22/2021 12:26 PM CDT Inhaled Oxygen Concentration - - Weight 52.7 kg (116 lb 3.2 oz) 02/05/2023 11:35 AM CDT Height 160 cm (5' 3) 05/31/2022 10:59 AM DIAMOND SAWER Body Mass Index 20.58 05/31/2022 10:59 AM DIAMOND SAWER Plan of Treatment Health Maintenance Due Date Last Done Comments ZOSTER VACCINE (2 of 3) 07/25/2007 05/30/2007 DTAP/TDAP/TD VACCINES (2 - T d or Tdap) 08/22/2019 08/21/2009 RSV VACCINE (60+ or ) (1 - 1-dose 75+ series) 2021 OSTEOPOROSIS SCREENING 11/13/2023 11/12/2018, 2018 INFLUENZA VACCINE (#1) 2024 , 01/05/2020, 01/20/2019, Additional history exists PNEUMOCOCCAL VACCINE 50+ YEARS Completed 1 , 01/20/2015, 12/21/2009 Medical Devices Implanted Type Area Principal Research Economist Device Identifier Shelf Expiration Date Model / Serial / Lot Infuse Protein Kit Lg Ii [id number] - Sna Implanted:Qty: 1 on 12/19/2021 by Biju Littlejohn MD at [facility] N/A: Spine Lumbar MEDTRONIC- SOFAMOR DANEK 03/21/2023 [id number] / NA / [id number] Description:CHECKED BY LG ON 12.20.21 REQ#[id number] Stimulan Caso4 Kt 10ml 620-010 - [id number] Implanted:Qty: 1 on 12/19/2021 by Biju Littlejohn MD at [facility] BIOCOMPOSITES 10/19/2024 620-010 / / [id number] Description:CHECKED BY LG ON 12.20.21 REQ#[id number] Spacer Catalyft Pl 7mm Xpndble Strt [id number] - [id number] Implanted:Qty: 1 on 12/19/2021 by Biju Littlejohn MD at [facility] N/A: Spine Lumbar MEDTRONIC- SOFAMOR DANEK 10/30/2029 [id number] / / [id number] Hemostatic Surgiflo 8ml W/ Thrombin 2994 - Sn/A Implanted:Qty: 1 on 12/19/2021 by Biju Littlejohn MD at [facility] Hemostatic N/A: Spine Lumbar J&J- ETHICON INC 01/19/2023 2994 / N/A / [id number] Hemostatic Surgiflo 8ml W/ Thrombin 2994 - [id number] Implanted:Qty: 1 on 12/19/2021 by Biju Littlejohn MD at [facility] Hemostatic N/A: Spine Lumbar J&J- ETHICON INC 09/19/2022 2994 / / [id number] Cassandra Spacer 6806-9333-N Tas 7 Dg Lg 10mm Implanted:Qty: 1 on 12/19/2021 by Biju Littlejohn MD at [facility] Other N/A: Spine Lumbar MEDTRONIC- SOFAMOR DANEK 07/04/2024 7431-3549-N / / [id number] Description:1X ADD Cassandra Spacer 1560-4120-N Tas 7dg Std 10mm Implanted:Qty: 1 on 12/19/2021 by Biju Littlejohn MD at [facility] Other N/A: Spine Lumbar MEDTRONIC- SOFAMOR DANEK 9273-8582-N / / [id number] Description:1X ADD Terence Cp4 Str Ti 5.2r856ao [id number] - [id number] Implanted:Qty: 1 on 12/19/2021 by Biju Littlejohn MD at [facility] Terence N/A: Spine Lumbar MEDTRONIC- SOFAMOR DANEK [id number] / / Description:load no: 227 227 05 sterilized: [id number] Screw Cdh 7.5x35mm 5.5/6.0 Mas Cc [id number] - [id number] Implanted:Qty: 3 on 12/19/2021 by Biju Littlejohn MD at [facility] Screw N/A: Spine Lumbar MEDTRONIC- SOFAMOR DANEK [id number] / / Description:load no: 227 227 05 sterilized: [id number] Screw Cdh 7.5x40mm 5.5/6.0 Mas Cc [id number] - [id number] Implanted:Qty: 2 on 12/19/2021 by Biju Littlejohn MD at [facility] N/A: Spine Lumbar MEDTRONIC- SOFAMOR DANEK [id number] / / Description:load no: 227 227 05 sterilized: [id number] Screw [id number] 5.5 Mas 7.5x25cc Implanted:Qty: 1 on 12/19/2021 by Biju Littlejohn MD at [facility] N/A: Spine Lumbar MEDTRONIC- SOFAMOR DANEK 11/10/2027 [id number] / / [id number] Description:1X ADD Screw [id number] Bs Cnmas 8.5x80 T/C Implanted:Qty: 2 on 12/19/2021 by Biju Littlejohn MD at [facility] N/A: Spine Lumbar MEDTRONIC- SOFAMOR DANEK 12/19/2021 [id number] / / [id number] Description:1X ADD Screw Endoskeleton 5.5x25mm Tas 3687-2886 - [id number] Implanted:Qty: 3 on 12/19/2021 by Biju Littlejohn MD at [facility] N/A: Spine Lumbar MEDTRONIC- SOFAMOR DANEK 7819-2147 / / Description:load [id number] da te: 12/19/21 YANCI REQ#[id number] Screw Solera 5.5/6.0 Breakoff [id number] - [id number] Implanted:Qty: 12 on 12/19/2021 by Biju Littlejohn MD at [facility] N/A: Spine Lumbar MEDTRONIC- SOFAMOR DANEK [id number] / / Description:load no: 227 227 05 sterilized: [id number] Screw Cdh 5.5x45mm 5.5/6.0 Mas Cc [id number] - [id number] Implanted:Qty: 4 on 12/19/2021 by Biju Littlejohn MD at [facility] N/A: Spine Lumbar MEDTRONIC- SOFAMOR DANEK [id number] / / Description:load no: 227 227 05 sterilized: [id number] Josh Dbm Dbf 6ml [id number] - [id number] Implanted:Qty: 1 on 12/19/2021 by Biju Littlejohn MD at [facility] N/A: Spine Lumbar MEDTRONIC- SOFAMOR DANEK 11/10/2023 [id number] / [id number] / Description:CHECKED BY LG ON 12.20.21 REQ#[id number] Josh Dbm Dbf 6ml [id number] - [id number] Implanted:Qty: 1 on 12/19/2021 by Biju Littlejohn MD at [facility] N/A: Spine Lumbar MEDTRONIC- SOFAMOR DANEK 11/10/2023 [id number] / [id number] / Description:CHECKED BY LG ON 12.20.21 REQ#[id number] Cassandra Spacer 2790-5926-N Tas 12d Std 12mm Implanted:Qty: 1 on 12/19/2021 by Biju Littlejohn MD at [facility] N/A: Spine Lumbar MEDTRONIC- SOFAMOR DANEK 0758-0018-N / / [id number] Description:1X ADD Insurance MEDICARE PART A AND B [facility] Advance Directives For more information, please contact: [phone] Documents on File Type Date Recorded Patient Logistics Director Expl anation Advance Directive Living Will 02/04/2023 10:08 AM Advance Directive POA 05/29/2022 12:52 PM Advance Directive POA 10/18/2021 10:07 AM * Full Code (Latest Code Status on File) Date Activated Date Inactivated Comments 12/19/2021 7:20 PM 12/22/2021 4:17 PM * Full Code Date Activated Date Inactivated Comments 12/19/2021 3:08 PM 12/19/2021 7:20 PM Care Teams Creative Services Director Relationship Specialty Start Date End Date Emily Tejada MD PCP - General Family Practice 01/14/20 Jade Bean Cardiovascular Disease 10/10/21
--- OUTSIDE RECORDS SUMMARY | 2024-10-30 11:55 | XMS_ITS | Encounter Summary ---
Author Organization [facility] Facility Care Team Providers Care Mini Shifter Name Role Phone Tara Hudson MD Primary Care Provider [phone] Gege Herrera MD Primary Care Provider Rachel Friend PHLEBOTOMIST ASSOCIATE Primary Care Provider [phone] Emily Clements PHLEBOTOMIST ASSOCIATE Primary Care Provider [phone] Rachel Friend PHLEBOTOMIST ASSOCIATE Primary Care Provider [phone] Todd Cedeno MD Unavailable Encounter Details Date Type Department Care Team (Latest Contact Info) Description 01/04/2016 Orders Only [facility] CLINCONV ProviderAlhaji MD [address] [place] [address] Social History Tobacco Use Types Packs/Day Years Used Date Smoking Tobacco: Never Assessed Comments Unknown Sex and Gender Information Value Date Recorded Sex Assigned at Not on file 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 [facility] Provider Final Res ult * PROCEDURE - RESULT (01/04/2016 12:00 AM CDT) Narrative 01/04/2016 12:00 AM CDT Ordered by an unspecified provider. [facility] Provider Final Res ult documented in this encounter Visit Diagnoses Not on filedocumented in this encounter Care Teams Mini Shifter Relationship Specialty Start Date End Date Tara Hudson MD [address] [address] PCP - General 12/17/16 11/02/19 Gege Herrera MD [address] [address] PCP - General Family Medicine 11/03/19 10/16/20 Rachel Friend NP [address] [address] PCP - General Family Medicine 10/17/20 01/09/23 Emily Clements NP [address] [place] [address] PCP - General Nurse Practitioner 01/10/23 11/25/23 Rachel Friend NP [address] [place] [address] PCP - General Family Medicine 11/26/23 Todd Cedeno MD [address] [place] [address] Consulting Physician Cardiology 07/15/24 documented as of this encounter
--- OUTSIDE RECORDS SUMMARY | 2024-10-30 11:55 | XMS_ITS | Encounter Summary ---
Author Organization [facility] Facility Care Team Providers Care Mining Teacher Name Role Phone Tara Hudson MD Primary Care Provider [phone] Gege Herrera MD Primary Care Provider Rachel Friend LAUNDRY OPERATOR Primary Care Provider [phone] Emily Clements LAUNDRY OPERATOR Primary Care Provider [phone] Rachel Friend LAUNDRY OPERATOR Primary Care Provider [phone] Todd Cedeno MD Unavailable [phone] Encounter Details Date Type Department Care Team (Latest Contact Info) Description 11/25/2017 Orders Only [facility] CLINCONV ProviderAlhaji MD [address] [place] [address] Social History Tobacco Use Types Packs/Day Years Used Date Smoking Tobacco: Never Assessed Comments Unknown Sex and Gender Information Value Date Recorded Sex Assigned at Not on file Legal Sex Female 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 Gender Identity Female 12/12/2018 8:34 AM CDT [...] on filedocumented in this encounter Care Teams Mining Teacher Relationship Specialty Start Date End Date Tara Hudson MD [address] [facility] [address] [place] [address] PCP - General 12/17/16 11/02/19 Gege Herrera MD [address] [address] PCP - General Family Medicine 11/03/19 10/16/20 Rachel Friend NP [address] [facility] [address] [place] [address] PCP - General Family Medicine 10/17/20 01/09/23 Emily Clements NP [address] [place] [address] PCP - General Nurse Practitioner 01/10/23 11/25/23 Rachel Friend NP [address] [place] [address] PCP - General Family Medicine 11/26/23 Todd Cedeno MD [address] [place] [address] Consulting Physician Cardiology 07/15/24 documented as of this encounter
--- OUTSIDE RECORDS SUMMARY | 2024-10-30 11:55 | XMS_ITS | Encounter Summary ---
Author Organization [facility] Facility Care Team Providers Care Bingo Caller Name Role Phone Tara Hudson MD Primary Care Provider [phone] Gege Herrera MD Primary Care Provider Rachel Friend CANCER PROGRAM DIRECTOR Primary Care Provider Emily Clements CANCER PROGRAM DIRECTOR Primary Care Provider [phone] Rachel Friend CANCER PROGRAM DIRECTOR Primary Care Provider [phone] Todd Cedeno MD Unavailable [phone] Encounter Details Date Type Department Care Team (Latest Contact Info) Description 03/05/2016 Orders Only [facility] CLINCONV ProviderAlhaji MD [address] [place] [address] Social History Tobacco Use Types Packs/Day Years Used Date Smoking Tobacco: Never Assessed Comments Unknown Sex and Gender Information Value Date Recorded Sex Assigned at Not on file Legal Sex Female 1:32 AM FABRICATION MANAGER Gender Identity Female 12/12/2018 8:34 AM CDT Sexual Orientation Straight 12/12/2018 8: 34 AM CDT documented as of this encounter Plan of Treatment Not on file documented as of this encounter Procedures Procedure Name Priority Date/Time Associated Diagnosis Comments PROCEDURE - RESULT 03/05/2016 12 :00 AM FABRICATION MANAGER PROCEDURE - RESULT 03/05/2016 12 :00 AM FABRICATION MANAGER documented in this encounter Results * PROCEDURE - RESULT (03/05/2016 12:00 AM FABRICATION MANAGER) Narrative 03/05/2016 12:00 AM FABRICATION MANAGER Ordered by an unspecified provider. us Historical Provider Final Res ult * PROCEDURE - RESULT (03/05/2016 12:00 AM FABRICATION MANAGER) Narrative 03/05/2016 12:00 AM FABRICATION MANAGER Ordered by an unspecified provider. us Historical Provider Final Res ult documented in this encounter Visit Diagnoses Not on filedocumented in this encounter Care Teams Bingo Caller Relationship Specialty Start Date End Date Tara Hudson MD [address] [address] PCP - General 12/17/16 11/02/19 Gege Herrera MD [address] [address] PCP - General Family Medicine 11/03/19 10/16/20 Rachel Friend NP [address] [address] PCP - General Family Medicine 10/17/20 01/09/23 Emily Clements NP [address] [place] [address] PCP - General Nurse Practitioner 01/10/23 11/25/23 Rachel Friend, AIRAM [address] [place] [address] PCP - General Family Medicine 11/26/23 Todd Cedeno MD [address] [place] [address] Consulting Physician Cardiology 07/15/24 documented as of this encounter
--- OUTSIDE RECORDS SUMMARY | 2024-10-30 11:55 | XMS_ITS | Encounter Summary ---
Author Organization [facility] Facility Care Team Providers Care Brass Chaser Name Role Phone Tara Hudson MD Primary Care Provider [phone] Gege Herrera MD Primary Care Provider Rachel Friend LIBRARY CONSULTANT Primary Care Provider [phone] Emily Clements LIBRARY CONSULTANT Primary Care Provider [phone] Rachel Friend LIBRARY CONSULTANT Primary Care Provider Todd Cedeno MD Unavailable [phone] Encounter Details Date Type Department Care Team (Latest Contact Info) Description 02/22/2016 Orders Only [facility] CLINCONV ProviderAlhaji MD [address] [place] [address] Social History Tobacco Use Types Packs/Day Years Used Date Smoking Tobacco: Never Assessed Comments Unknown Sex and Gender Information Value Date Recorded Sex Assigned at Not on file Legal Sex Female 1:32 AM TUBE DEPATCHER Gender Identity Female 12/12/2018 8:34 AM CDT [...] AM CDT Ordered by an unspecified provider. [facility] Provider Final Res ult * PROCEDURE - RESULT (02/22/2016 12:00 AM CDT) Narrative 02/22/2016 12:00 AM CDT Ordered by an unspecified provider. [facility] Provider Final Res ult documented in this encounter Visit Diagnoses Not on filedocumented in this encounter Care Teams Brass Chaser Relationship Specialty Start Date End Date Tara Hudson MD [address] [address] PCP - General 12/17/16 11/02/19 Gege Herrera MD [address] [address] PCP - General Family Medicine 11/03/19 10/16/20 Rachel Friend NP [address] [address] PCP - General Family Medicine 10/17/20 01/09/23 Emily Clements NP [address] [place] [address] PCP - General Nurse Practitioner 01/10/23 11/25/23 Rachel Friend NP [address] [place] [address] PCP - General Family Medicine 11/26/23 Todd Cedeno MD [address] [place] [address] Consulting Physician Cardiology 07/15/24 documented as of this encounter
--- OUTSIDE RECORDS SUMMARY | 2024-10-30 11:56 | XMS_ITS | Clinical Summary ---
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 Not on file Not on file Not on file Last Filed Vital Signs Vital Sign Reading Time Taken Comments Blood Pressure 148/89 05/09/2022 11:53 AM PRE CERTIFICATION SPECIALIST Pulse 93 05/09/2022 11:53 AM PRE CERTIFICATION SPECIALIST Temperature 36.6 C (97.8 F) 05/09/2022 11:53 AM PRE CERTIFICATION SPECIALIST Respiratory Rate 18 04/20/2022 8:01 AM PRE CERTIFICATION SPECIALIST Oxygen Saturation 99% 04/20/2022 8:01 AM PRE CERTIFICATION SPECIALIST Inhaled Oxygen Concentration - - Weight 51.9 kg (114 lb 6.4 oz) 05/09/2022 11:53 AM PRE CERTIFICATION SPECIALIST Height 160 cm (5' 3) 05/09/2022 11:53 AM PRE CERTIFICATION SPECIALIST Body Mass Index 20.27 05/09/2022 11:53 AM PRE CERTIFICATION SPECIALIST Plan of Treatment Health Maintenance Due [...] 2023 07/26/2021, 02/14/2021, 07/08/2020, Additional history exists Pneumococcal Vaccine: 50+ Years Completed 02/13/2017, 02/03/2015, 01/20/2015, Additional history exists Meningococcal B Vaccine Aged Out No l onger eligible based on patient's age to complete this topic Meningococcal Vaccine Aged Out No tevin rodrick eligible based on patient's age to complete this topic RSV Immunizations Under 20 Months Aged Out No longer eligible based on patient's age to complete this topic Insurance [facility] Care Teams Dynamometer Tester Relationship Specialty Start Date End Date Rachel Friend FNP PCP - General Nurse Practitioner Family 07/20/21
--- OUTSIDE RECORDS SUMMARY | 2024-10-30 11:56 | XMS_ITS | Data Portability ---
Author Organization [facility] Address [address] [place] [address] Assessment No assessment recorded. Plan of Treatment Reminders Order Date Submit Date Provider Last Modified By Organization Details Last Modified Time Details Appointments None recorde d. Lab BMP, serum or plasma 2018 [facility], [address], [address], [place], [address], 9 03:46:46 lipid panel, serum 2018 019 [facility], [address], [address], [place], [address], 9 03:46:45 AST/SGO T (aspart ate aminotr ansfera se), serum or plasma 2018 019 [facility], [address], [address], [place], [address], 9 03:46:46 lipid panel, serum 2017 018 [facility], [address], [address], [place], [address], 8 12:34:54 CMP, serum or plasma 2017 018 [facility], [address], [place], [address], 8 12:34:55 CBC w/ auto diff 2017 018 [email or web address] [facility], [address], [address], [place], [address], 8 12:34:55 TSH, serum or plasma 2017 018 [email or web address] [facility], [address], [address], [place], [address], 8 12:34:56 C-react vickie protein , quantit ative, serum or plasma 2017 018 [place] [facility], [address], [address], [place], [address], 8 12:34:56 BMP, serum or plasma 2016 017 [place] [facility], [address], [address], [place], [address], 7 06:23:16 lipid panel, serum 2016 017 [email or web address], [address], [address], [place], [address], 7 06:23:16 AST/SGO T (aspart ate aminotr ansfera se), serum or plasma 2016 017 [email or web address], [address], [address], [place], [address], 7 06:23:16 Referral hand surgeon refer l - Please contact patient for appt- patient gone from 9 through 12/05/19 19 2018 019 deandre Wong MD, [address] [facility] , [address], [place], [address], 9 10:59:33 hand surgeon referra bull - establi shed patient ; appt schedul ed 2017 018 TEJAL Wong MD, [address] [facility] , [address], [place], [address], 8 17:20:49 Procedures destruc tion of benign lesions (PROC) 2016 017 wandres Not available 7 15:20:01 Surgeries None recorde d. [facility] [address], [address], [place], [address], 9 09:24:08 MAMMO, screeni ng, digital , bilater al 2016 017 thoskinsma Not available 7 10:31:25 Medication Orders diclofe nac sodium 50 mg tablet, delayed release 2018 019 INTERFACE [facility], [facility] [place], [address], 9 11:55:06 methoca rbamol 750 mg tablet 2018 019 [address], [address] [place], [address], 9 13:52:37 lisinop ril 10 mg tablet 2018 019 INTERFACE [facility], [facility] [place], [address], 9 11:55:07 meclizi ne 25 mg tablet 2017 018 [address], [address] [place], [address], 9 11:53:14 diclofe nac sodium 50 mg tablet, delayed release 2017 018 INTERFACE [facility], [facility], [place], [address], 8 13:50:12 flutica sone propion ate 50 mcg/act uation nasal spray,s uspensi on 2017 018 INTERFACE [facility] #3259, [address] [place], [address], 8 13:58:13 lisinop ril 10 mg tablet 2017 018 INTERFACE [facility], [facility] [place] [place], [address], 8 13:50:11 diclofe nac sodium 50 mg tablet, delayed release 2016 017 INTERFACE [facility] [address], [place], [address], 7 11:22:41 flutica sone propion ate 50 mcg/act uation nasal spray,s uspensi on 2016 017 [id number], [address], [place], [id number], 8 12:51:05 lisinop ril 10 mg tablet 2016 017 INTERFACE [facility] ([facility]), [address], [place], [address], 7 11:22:40 diclofe nac sodium 50 mg tablet, delayed release 2016 017 INTERFACE [facility] ([facility]), [address], [place], [address], 7 11:55:36 lisinop ril 10 mg tablet 2016 017 INTERFACE [facility] ([facility]), [address], [place], [address], 7 11:55:33 Patient TargetsNo targets recorded. Patient Instructions Encounter Date Encounter Id Patient Instructions Last Modified By Organization Details Last Modified Time 05/01/2016 [id number] high blood pressure: care instructions lleelpn Not available 05/01/2016 12:06:33 learning about high blood pressure lleelpn Not available 05/01/2016 12:06:33 11/08/2016 [id number] seborrheic keratosis: care instructions ssadlowskima Not available 11/08/2016 14:47:13 learning about breast cancer screening lenglema Not available 11/08/2016 11:25:15 managing your allergies: care instructions lenglema Not available 11/08/2016 11:25:15 seasonal allergies: care instructions lenglema Not available 11/08/2016 11:25:15 10/31/2017 [id number] high blood pressure: care instructions Not available 10/31/2017 13:50:08 learning about high blood pressure Not available 10/31/2017 13:50:08 11/10/2018 [id number] back care and preventing injuries: care instructions [...] total 206 mg/dL <200 high Not Available [facility] [id number] [place], [address], 02/06/2017 06:23:15 02/06/20 17 02/06/2017 lipid panel , serum HDL cholesterol 88 mg/dL >50 normal Not Available [facility] [address], [address], 02/06/2017 06:23:15 02/06/20 17 02/06/2017 lipid panel , serum triglyceride s 67 mg/dL <150 normal Not Available [address], [address], 02/06/2017 06:23:15 02/06/20 17 02/06/2017 lipid panel , serum LDL-choleste rol 103 mg/dL _(radha c) high Refer ence range : <100 Francisco able range <100 mg/dL for patie nts with CHD or diabe rylee and <70 mg/dL for diabe tic patie nts with known heart disea se. LDL-C is now calcu lated using the Celeste n-[facility] jaiu bernie n, which is a valid ated novel metho d provi toney abraham r accur acy than the Fried zeeshan equat ion in the estim ation of LDL-C . Celeste beltran SS et al. MADHURI. 2013; 310(1 9): 2061- 2068 (http ://ed ucati on.[employer]. [employer] TV/f aq/FA Q164) Not Available [address], [address], 02/06/2017 06:23:15 02/06/20 17 02/06/2017 lipid panel , serum chol/HDLC ratio 2.3 (calc ) <5.0 normal Not Available [address], [address], 02/06/2017 06:23:15 02/06/2002/06/2017 lipid panel , serum non HDL cholesterol 118 mg/dL _(radha c) <130 normal For patie nts with diabe rylee plus 1 major ASCVD risk facto r, treat ing to a non-H DL-C goal of <100 mg/dL (LDL- C of <70 mg/dL ) is consi dered a thera pemiri c mikkio n. Not Available [address] [place], [address], 02/06/2017 06:23:15 02/06/20 17 02/06/2017 AST/S GOT (aspa rtate amino trans feras e), serum or plasm a AST 19 U/L 10-35 normal Not Available [address] [address] [place], [address], 02/06/2017 06:23:16 02/06/20 17 02/06/2017 BMP, serum or plasm a glucose 94 mg/dL 65-99 normal Fasti ng refer ence inter adilene Not Available [address], [address], 02/06/2017 06:23:16 02/06/20 17 02/06/2017 BMP, serum or plasm a urea nitrogen (BUN) 13 mg/dL 7-25 normal Not Available [address], [address], 02/06/2017 06:23:16 02/06/20 17 02/06/2017 BMP, serum or plasm a creatinine 0.59 mg/dL 0.60-0 .93 low For patie nts >49 years of age, the refer ence limit for Creat inine is appro ximat marilou 13% highe r for peopl e ident ified as Afric an-Am rosmery n. Not Available [address], [address], 02/06/2017 06:23:16 02/06/20 17 02/06/2017 BMP, serum or plasm a eGFR non-afr. albanian 93 mL/mi n/1.7 3m2 > or = 60 normal Not Available [address], [address], 02/06/2017 06:23:16 02/06/20 17 02/06/2017 BMP, serum or plasm a eGFR 108 mL/mi n/1.7 3m2 > or = 60 normal Not Available [address], [address], 02/06/2017 06:23:16 02/06/20 17 02/06/2017 BMP, serum or plasm a BUN/creatini ne ratio 22 (calc ) 6-22 normal Not Available [address], [address], 02/06/2017 06:23:16 02/06/20 17 02/06/2017 BMP, serum or plasm a sodium 133 mmol/ L 135-14 6 low Not Available [address], [address], 02/06/2017 06:23:16 02/06/20 17 02/06/2017 BMP, serum or plasm a potassium 4.6 mmol/ L 3.5-5. 3 normal Not Available [address], [address], 02/06/2017 06:23:16 02/06/2002/06/2017 BMP, serum or plasm a chloride 97 mmol/ L 98-110 low Not Available [address], [address], 02/06/2017 06:23:16 02/06/20 17 02/06/2017 BMP, serum or plasm a carbon dioxide 29 mmol/ L 20-31 normal Not Available [address], [address], 02/06/2017 06:23:16 02/06/20 17 02/06/2017 BMP, serum or plasm a calcium 9.7 mg/dL 8.6-10 .4 normal Not Available [address], [address], 02/06/2017 06:23:16 02/11/20 18 02/11/2018 lipid panel , serum cholesterol, total 209 mg/dL <200 high Not Available [address], [address], 02/11/2018 12:34:54 02/11/20 18 02/11/2018 lipid panel , serum HDL cholesterol 87 mg/dL >50 normal Not Available [facility] [employer] [address], [address], 02/11/2018 12:34:54 02/11/20 18 02/11/2018 lipid panel , serum triglyceride s 105 mg/dL <150 normal Not Available [address], [address], 02/11/2018 12:34:54 02/11/20 18 02/11/2018 lipid panel [...] n, which is a valid ated novel kitty israel acy than the Fried zeeshan equat ion in the estim ation of LDL-C . Celeste beltran SS et al. MADHURI. 2013; 310(1 9): 2061- 2068 (http ://ed ucati on.Qu [employer]. com/f aq/FA Q164) Not Available [address], [address], 02/11/2018 12:34:54 02/11/20 18 02/11/2018 lipid panel , serum chol/HDLC ratio 2.4 (calc ) <5.0 normal Not Available [address], [address], 02/11/2018 12:34:54 02/11/20 18 02/11/2018 lipid panel , serum non HDL cholesterol 122 mg/dL _(radha c) <130 normal For patie nts with diabe rylee plus 1 major ASCVD risk facto r, treat ing to a non-H DL-C goal of <100 mg/dL (LDL- C of <70 mg/dL ) is melanie kayeo n. Not Available [address] [address] [place], [address], 02/11/2018 12:34:54 02/11/20 18 02/11/2018 CMP, serum or plasm a glucose 90 mg/dL 65-139 normal Non-f astin g refer ence inter adilene Not Available [facility] [address], [place], [address], 02/11/2018 12:34:55 02/11/20 18 02/11/2018 CMP, serum or plasm a urea nitrogen (BUN) 17 mg/dL 7-25 normal Not Available [facility] [address] [address] [place], [address], 02/11/2018 12:34:55 02/11/2002/11/2018 CMP, serum or plasm a creatinine 0.60 mg/dL 0.60-0 .93 normal For patie nts >49 years of age, the refer ence limit for Creat inine is appro ximat marilou 13% highe r for peopl e ident ified as Afric an-Am rosmery n. Not Available [facility] [address] [address] [place], [address], 02/11/2018 12:34:55 02/11/20 18 02/11/2018 CMP, serum or plasm a eGFR non-afr. albanian 92 mL/mi n/1.7 3m2 > or = 60 normal Not Available [facility] [address] [address] [place], [address], 02/11/2018 12:34:55 02/11/20 18 02/11/2018 CMP, serum or plasm a eGFR 106 mL/mi n/1.7 3m2 > or = 60 normal Not Available [facility] [address] [address] [place], [address], 02/11/2018 12:34:55 02/11/20 18 02/11/2018 CMP, serum or plasm a BUN/creatini ne ratio NOT APPLIC ABLE (calc ) 6-22 Not Available [address], [address], 02/11/2018 12:34:55 02/11/20 18 02/11/2018 CMP, serum or plasm a sodium 133 mmol/ L 135-14 6 low Not Available [address], [address], 02/11/2018 12:34:55 02/11/20 18 02/11/2018 CMP, serum or plasm a potassium 4.7 mmol/ L 3.5-5. 3 normal Not Available [address], [address], 02/11/2018 12:34:55 02/11/20 18 02/11/2018 CMP, serum or plasm a chloride 95 mmol/ L 98-110 low Not Available [address], [address], 02/11/2018 12:34:55 02/11/20 18 02/11/2018 CMP, serum or plasm a carbon dioxide 27 mmol/ L 20-32 normal Not Available [address], [address], 02/11/2018 12:34:55 02/11/20 18 02/11/2018 CMP, serum or plasm a calcium 9.8 mg/dL 8.6-10 .4 normal Not Available [employer] [address], [address], 02/11/2018 12:34:55 02/11/20 18 02/11/2018 CMP, serum or plasm a protein, total 7.2 g/dL 6.1-8. 1 normal Not Available [employer] [address], [address], 02/11/2018 12:34:55 02/11/20 18 02/11/2018 CMP, serum or plasm a albumin 4.6 g/dL 3.6-5. 1 normal Not Available [address], [address], 02/11/2018 12:34:55 02/11/20 18 02/11/2018 CMP, serum or plasm a globulin 2.6 g/dL_ (calc ) 1.9-3. 7 normal Not Available [address], [address], 02/11/2018 12:34:55 02/11/20 18 02/11/2018 CMP, serum or plasm a albumin/glob ulin ratio 1.8 (calc ) 1.0-2. 5 normal Not Available [address], [address], 02/11/2018 12:34:55 02/11/20 18 02/11/2018 CMP, serum or plasm a bilirubin, total 0.7 mg/dL 0.2-1. 2 normal Not Available [address], [address], 02/11/2018 12:34:55 02/11/20 18 02/11/2018 CMP, serum or plasm a alkaline phosphatase 64 U/L 33-130 normal Not Available [address], [address], 02/11/2018 12:34:55 02/11/20 18 02/11/2018 CMP, serum or plasm a AST 27 U/L 10-35 normal Not Available [address], [address], 02/11/2018 12:34:55 02/11/20 18 02/11/2018 CMP, serum or plasm a ALT 20 U/L 6-29 normal Not Available [address], [address], 02/11/2018 12:34:55 02/11/20 18 02/11/2018 CBC w/ auto diff white blood cell count 6.0 thous and/u L 3.8-10 .8 normal Not Available [address], [address], 02/11/2018 12:34:55 02/11/20 18 02/11/2018 CBC w/ auto diff red blood cell count 4.45 pollo on/uL 3.80-5 .10 normal Not Available [address], [address], 02/11/2018 12:34:55 02/11/20 18 02/11/2018 CBC w/ auto diff hemoglobin 14.3 g/dL 11.7-1 5.5 normal Not Available [address], [address], 02/11/2018 12:34:55 02/11/20 18 02/11/2018 CBC w/ auto diff hematocrit 42.2 % 35.0-4 5.0 normal Not Available [address], [address], 02/11/2018 12:34:55 02/11/20 18 02/11/2018 CBC w/ auto diff MCV 94.8 fL 80.0-1 00.0 normal Not Available [address], [address], 02/11/2018 12:34:55 02/11/20 18 02/11/2018 CBC w/ auto diff MCH 32.1 pg 27.0-3 3.0 normal Not Available [address], [address], 02/11/2018 12:34:55 02/11/20 18 02/11/2018 CBC w/ auto diff MCHC 33.9 g/dL 32.0-3 6.0 normal Not Available [address], [address], 02/11/2018 12:34:55 02/11/20 18 02/11/2018 CBC w/ auto diff RDW 11.7 % 11.0-1 5.0 normal Not Available [address], [address], 02/11/2018 12:34:55 02/11/20 18 02/11/2018 CBC w/ auto diff platelet count 301 thous and/u L 140-40 0 normal Not Available [address], [address], 02/11/2018 12:34:55 02/11/2002/11/2018 CBC w/ auto diff MPV 9.9 fL 7.5-12 .5 normal Not Available [address], [address], 02/11/2018 12:34:55 02/11/2002/11/2018 CBC w/ auto diff absolute neutrophils 3660 cells /uL 1500-7 800 normal Not Available [address], [address], 02/11/2018 12:34:55 02/11/20 18 02/11/2018 CBC w/ auto diff absolute lymphocytes 1422 cells /uL 850-39 00 normal Not Available [address], [address], 02/11/2018 12:34:55 02/11/20 18 02/11/2018 CBC w/ auto diff absolute monocytes 528 cells /uL 200-95 0 normal Not Available [address], [address], 02/11/2018 12:34:55 02/11/20 18 02/11/2018 CBC w/ auto diff absolute eosinophils 330 cells /uL 15-500 normal Not Available [address], [address], 02/11/2018 12:34:55 02/11/2002/11/2018 CBC w/ auto diff absolute basophils 60 cells /uL 0-200 normal Not Available [address], [address], 02/11/2018 12:34:55 02/11/2002/11/2018 CBC w/ auto diff neutrophils 61 % normal Not Available [address], [address], 02/11/2018 12:34:55 02/11/2002/11/2018 CBC w/ auto diff lymphocytes 23.7 % normal Not Available [address], [address], 02/11/2018 12:34:55 02/11/2002/11/2018 CBC w/ auto diff monocytes 8.8 % normal Not Available [address], [address], 02/11/2018 12:34:55 02/11/2002/11/2018 CBC w/ auto diff eosinophils 5.5 % normal Not Available [address], [address], 02/11/2018 12:34:55 02/11/2002/11/2018 CBC w/ auto diff basophils 1.0 % normal Not Available [address], [address], 02/11/2018 12:34:55 02/11/2002/11/2018 C-amadeo ctive prote in, quant itati ve, serum or plasm a C-reactive protein 0.7 mg/L <8.0 normal Not Available [address], [address], 02/11/2018 12:34:56 02/11/2002/11/2018 TSH, serum or plasm a TSH 3.66 mIU/L 0.40-4 .50 normal Not Available [address], [address], 02/11/2018 12:34:56 02/12/2002/12/2019 lipid panel , serum cholesterol, total 222 mg/dL <200 high Not Available [address], [address], 02/12/2019 03:46:45 02/12/2002/12/2019 lipid panel , serum HDL cholesterol 83 mg/dL >50 normal Not Available [facility] [employer] [address], [address], 02/12/2019 03:46:45 02/12/2002/12/2019 lipid panel , serum triglyceride s 94 mg/dL <150 normal Not Available [address], [address], 02/12/2019 03:46:45 02/12/2002/12/2019 lipid panel , serum LDL-choleste rol 119 mg/dL _(radha c) high Refer ence range : <100 Francisco able range <100 mg/dL for prima ry preve ntion ; <70 mg/dL for patie nts with CHD or diabe tic patie nts with > or = 2 CHD risk facto rs. LDL-C is now calcu lated using the Celeste n-Hop kins jaiu benrie n, which is a valid ated novel metho d provi toney rosario r accur acy than the Fried zeeshan equat ion in the estim ation of LDL-C . Celeste beltran SS et al. MADHURI. 2013; 310(1 9): 2061- 2068 (http ://ed ucati on.Qu Gust[employer]. com/f aq/FA Q164) Not Available [employer] [address] [address] [place], [address], 02/12/2019 03:46:45 02/12/2002/12/2019 lipid panel , serum chol/HDLC ratio 2.7 (calc ) <5.0 normal Not Available [address], [address], 02/12/2019 03:46:45 02/12/2002/12/2019 lipid panel , serum non HDL cholesterol 139 mg/dL _(rdaha c) <130 high For patie nts with diabe rylee plus 1 major ASCVD risk facto r, treat ing to a non-H DL-C goal of <100 mg/dL (LDL- C of <70 mg/dL ) is consi dered a thera peuti c optio n. Not Available [address], [address], 02/12/2019 03:46:45 02/12/2002/12/2019 AST/S GOT (aspa rtate amino trans feras e), serum or plasm a AST 17 U/L 10-35 normal Not Available [address], [address], 02/12/2019 03:46:45 02/12/2002/12/2019 BMP, serum or plasm a glucose 84 mg/dL 65-99 normal Fasti ng refer ence inter adilene Not Available [address], [address], 02/12/2019 03:46:46 02/12/2002/12/2019 BMP, serum or plasm a urea nitrogen (BUN) 14 mg/dL 7-25 normal Not Available [address], [address], 02/12/2019 03:46:46 02/12/2002/12/2019 BMP, serum or plasm a creatinine 0.59 mg/dL 0.60-0 .93 low For patie nts >49 years of age, the refer ence limit for Creat inine is appro ximat marilou 13% highe r for peopl e ident ified as Afric an-Am rosmery n. Not Available [address] [address] [place], [address], 02/12/2019 03:46:46 02/12/2002/12/2019 BMP, serum or plasm a eGFR non-afr. albanian 92 mL/mi n/1.7 3m2 > or = 60 normal Not Available [address] [address] [place], [address], 02/12/2019 03:46:46 02/12/2002/12/2019 BMP, serum or plasm a eGFR 106 mL/mi n/1.7 3m2 > or = 60 normal Not Available [address], [address], 02/12/2019 03:46:46 02/12/2002/12/2019 BMP, serum or plasm a BUN/creatini ne ratio 24 (calc ) 6-22 high Not Available [address], [address], 02/12/2019 03:46:46 02/12/2002/12/2019 BMP, serum or plasm a sodium 136 mmol/ L 135-14 6 normal Not Available [address] [address] [place], [address], 02/12/2019 03:46:46 02/12/2002/12/2019 BMP, serum or plasm a potassium 4.6 mmol/ L 3.5-5. 3 normal Not Available [facility] [address] [address] [place], [address], 02/12/2019 03:46:46 02/12/2002/12/2019 BMP, serum or plasm a chloride 99 mmol/ L 98-110 normal Not Available [address] [address] [place], [address], 02/12/2019 03:46:46 02/12/2002/12/2019 BMP, serum or plasm a carbon dioxide 29 mmol/ L 20-32 normal Not Available [facility] [address] [place], [address], 02/12/2019 03:46:46 02/12/20 19 02/12/2019 BMP, serum or plasm a calcium 9.4 mg/dL 8.6-10 .4 normal Not Available [facility] [address] [address], [place], [address], 02/12/2019 03:46:46 05/28/19 17 05/28/2016 XR, lumba r spine No observ ation record ed. [email or web address] Not Available 2016 22:17:17 02/01/20 17 01/31/2017 MAMMO , scree katerina, digit al, bilat eral No observ ation record ed. [facility] (Imaging) [address] [facility] [address], [place], [address], 02/04/2017 17:27:11 02/06/20 17 01/31/2017 MAMMO , scree katerina, digit al, bilat eral, w/ CAD No observ ation record ed. [facility] Not Available 2016 21:20:18 02/11/20 18 02/10/2018 MAMMO , scree katerina, bilat eral No observ ation record ed. [address] (Imaging) [address] [facility] [address], [place], [address], 02/10/2018 19:00:20 11/29/19 19 11/21/2018 DEXA No observ ation record ed. [email or web address] n [facility] [address], [place], [address], 11/28/2018 16:57:21 12/20/19 19 12/19/2018 XR, elbow , 3 or more view No observ ation record ed. [email or web address], [place], [address], 12/22/2018 18:22:19 01/17/20 19 01/16/2019 XR, elbow No observ ation record ed. [email or web address] [address] [place], [address], 01/16/2019 18:15:40 02/17/20 19 02/16/2019 MAMMO , scree katerina, bilat eral No observ ation record ed. [facility] ([facility]) [address], [place], [address], 02/16/2019 16:08:46 02/28/20 19 02/27/2019 XR, elbow , 3 or more view No observ ation record ed. [email or web address] [address] [place], [address], 02/27/2019 16:21:58 Result Notes None recorded. Problems Name Problem SNOMED Code Status Onset Date Resolution Date Notes Provider Name and Address Organization Details Recorded Time Disorder of bone and articula r cartilag e 487536392 Completed 201205/03/2012 Location : None;Sev erity: Moderate ;Progres s: Stable;A dded By: Tara Hudson;Add to Current Problems : NO Not Available [facility] 7 10:01:45 Malaise and fatigue 602388210 Active 2012 Location : None;Sev erity: Moderate ;Progres s: Stable;A dded By: Dinora Toth;Add to Current Problems : NO Not Available [facility] 7 10:01:45 Senile hyperker atosis 513125917 Completed 201308/30/2013 Location : None;Sev erity: Moderate ;Progres s: Stable;A dded By: Carrie Hammonds;Add to Current Problems : NO Not Available [facility] 7 10:01:45 Chronic pain [id number] Active 2012 Location : None;Sev erity: Moderate ;Progres s: Stable;A dded By: Lizz yMarck;Marcus d to Current Problems : YES Not Available [facility] 7 10:01:45 Pain in limb [id number] Active 2014 Location : None;Sev erity: Moderate ;Progres s: Stable;A dded By: Christina Hdez; Add to Current Problems : YES Not Available [facility] 7 10:01:45 Screenin g for malignan t neoplasm of colon Active 2012 Location : None;Sev erity: Moderate ;Progres s: Stable;A dded By: Tara Hudson;Add to Current Problems : NO [facility] Available [facility] 7 10:01:45 Hearing loss 75917450 Active 2013 Location : None;Sev erity: Moderate ;Progres s: Stable;A dded By: Tara Hudson;Add to Current Problems : NO Not Available [facility] 7 10:01:45 Female genital organ symptoms 831231617 Completed 201408/24/2014 Location : None;Sev erity: Moderate ;Progres s: Stable;A dded By: Tara Hudson;Add to Current Problems : YES Not Available [facility] 7 10:01:45 Lumbosac ral spondylo sis without myelopat hy 02438396 Active 2012 Location : None;Sev erity: Moderate ;Progres s: Stable;A dded By: Tara Hudson;Add to Current Problems : YES Not Available [facility] 7 10:01:45 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 Active 2014 Location : None;Sev erity: Moderate ;Progres s: Stable;A dded By: Tara Hudson;Add to Current Problems : NO Not Available [facility] 7 10:01:45 Ganglion of joint 99265255 Completed 201312/26/2013 Location : None;Sev erity: Moderate ;Progres s: Stable;A dded By: Tabatha Rivera i;A dd to Current Problems : NO Not Available [facility] 7 10:01:45 Enthesop athy of wrist AND/OR carpus 10999013 Completed 201312/26/2013 Location : None;Sev erity: Moderate ;Progres s: Stable;A dded By: Tabatha Rivera i;Deangelo dd to Current Problems : NO Not Available [facility] 7 10:01:45 Migraine without aura 36378803 Active 2012 Location : None;Sev erity: Moderate ;Progres s: Stable;A dded By: Tabatha Rivera i;Deangelo dd to Current Problems : YES Not Available [facility] 7 10:01:46 Low back pain 173542985 Active 2014 Location : None;Sev erity: Moderate ;Progres s: Stable;A dded By: Tabatha Rivera i;Deangelo dd to Current Problems : YES Not Available [facility] 7 10:01:46 Dyspnea 263551936 Completed 201308/30/2013 Location : None;Sev erity: Moderate ;Progres s: Stable;A dded By: Monica Hussein;Ad d to Current Problems : NO Not Available [facility] 7 10:01:46 Screenin g for osteopor osis Active 2015 Location : None;Sev erity: Moderate ;Progres s: Stable;A dded By: Sosa Rahman;Add to Current Problems : YES Not Available [facility] 7 10:01:46 Disorder of bone and articula r cartilag e 659844580 Active 2015 Location : None;Sev erity: Moderate ;Progres s: Stable;A dded By: Sosa Rahman;Add to Current Problems : NO Not Available [facility] 7 10:01:46 Benign essentia l hyperten kwadwo 0494100 Active 2014 Location : None;Sev erity: Moderate ;Progres s: Stable;A dded By: Mary Anne Cuadra;Add to Current Problems : YES Not Available [facility] 7 10:01:46 Spontane ous ecchymos is 953736850 Active 2015 Location : None;Sev erity: Moderate ;Progres s: Stable;A dded By: Mary Anne Cuadra;Add to Current Problems : YES Not Available [facility] 7 10:01:46 Problem Notes None recorded. Procedures Surgical History Date Name Laterality Status Provider Name and Address Organization Details Recorded Time 11/11/19 19 AIMS completed Alexa Etienne MA [facility] 11/10/2018 11:01:06 11/11/19 19 SLUMS EXAM completed Alexa Etienne MA [facility] 11/10/2018 11:01:06 11/09/19 17 Generic Procedure completed Tara Hudson MD Attn: Accounting,[address] [facility], [place], [address], [facility] 11/08/2016 14:22:38 Back Surgery completed [facility] 05/01/2016 14:36:09 Eye Surgery completed [facility] 05/01/2016 14:36:27 Breast Surgery completed [facility] 11/05/2016 17:44:53 Dilation and Curettage completed [facility] 05/01/2016 14:36:38 Imaging Results None recorded. Procedure Notes None recorded. Medical Equipment None Reported. Allergies Allergen ID Allergen Name Allergen Category Reaction Reaction Severity Criticality Documentation Date Start Date Code Code System Note Provider Name and Address Organization Details Recorded Time 20424 erythromy jet medicatio n nausea moderate Not available 04/25/20162012 4053 RxNorm React ion: nause a;Sev erity : Moder ate; Comme nt: Aller gy Type: Adver se React ion; Not Available [facility] 7 03:46:36 10113 Biaxin medicatio n nausea moderate Not available 04/25/2016201272 9 RxNorm React ion: nause a;Sev erity : Moder ate; Comme nt: Aller gy Type: Adver se React ion; Not Available [facility] 7 03:46:36 54943 bisoprolo l / hydrochlo rothiazid e medicatio n Not available Not available Not available 04/25/20162012 08470 7 RxNorm Sever ity: Moder ate; Comme nt: DYSPH AGIA; Aller gy Type: Adver se React ion; Not Available [facility] 7 03:46:36 48004 Medrol medicatio n Not available Not available Not available 04/25/2016201270 2 RxNorm Sever ity: Moder ate; Comme nt: Aller gy Type: Adver se React ion; Not Available [facility] 7 03:46:36 79594 codeine phosphate medicatio n Not available Not available Not available 04/25/20162012 2672 RxNorm Sever ity: Moder ate; Comme nt: Aller gy Type: Adver se React ion; Not Available [facility] 7 03:46:36 51531 gabapenti n medicatio n Not available Not available Not available 05/01/2016 21453 RxNorm hair loss Tabatha El young, [place] [facility] 7 11:17:01 Medications Name Sig Start Date Stop Date [...] 6 hr prn 12/11 completed RxNorm : 769908 ;Allow Substi tution : True Not Available Not Available Not Available prednisone 20 mg tablet 3 po q day for 3 days then 2 po q day for 3 days then 1 po q day for 4 days 03/21 completed RxNorm : 069004 ;Allow Substi tution : True Not Available Not Available Not Available Voltaren 75 mg tablet,del ayed release Take 1 tablet(s) by mouth bid 12/11 completed RxNorm : 702765 ;Allow Substi tution : True Not Available Not Available Not Available oxycodone- acetaminop hen 5 mg-325 mg tablet 11/10 completed Not Available Not Available Not Available Denavir 1 % topical cream Apply sufficien t amount to affected area q2h for 4 days while awake 04/27 completed RxNorm : 193878 ;Allow Substi tution : True Not Available [...] prn for migraine 11/14 completed RxNorm : 029088 ;Allow Substi tution : True Not Available Not Available Not Available fluticason e propionate 50 mcg/actuat ion nasal spray,susp ension USE 2 SPRAYS INTO EACH NOSTRIL EVERY DAY 2019 active Not Available Not Available Not Avai lable Tylenol Extra Strength 500 mg tablet Take 2 tabs (1000mg) daily 10/03 completed RxNorm : 798803 ;Allow Substi tution : True Not Available Not Available Not Available Restasis 0.05 % eye drops in a dropperett e Instill 1 drop(s) to each eye bid 10/31 completed RxNorm : 016195 ;Allow Substi tution : True Not Available [...] Available Vitals Date Recorded Body height Body weight Body mass index (BMI) Body temperature Oxygen saturation Oxygen saturation in Arterial blood by Pulse oximetry Heart rate Systolic And Diastolic Provider Name and Address Organization Details Last Updated DateTime 7 165.1 cm 40604.7 3 g 20.2 kg/m2 97.7 [degF] 98 % 98 % 70 /min 112/74 mm[Hg] Tabatha Gallegos ma [facility] 7 11:19:38 Date Recorded Body height Body mass index (BMI) Body weight Body temperature Oxygen saturation Oxygen saturation in Arterial blood by Pulse oximetry Heart rate Systolic And Diastolic Provider Name and Address Organization Details Last Updated DateTime 8 165.1 cm 19.5 kg/m2 98272.6 6 g 97.1 [degF] 98 % 98 % 52 /min 110/80 mm[Hg] Tabatha Gallegos ma [facility] 8 12:50:07 Date Recorded Body height Body mass index (BMI) Body weight Body temperature Oxygen saturation Oxygen saturation in Arterial blood by Pulse oximetry Heart rate Systolic And Diastolic Provider Name and Address Organization Details Last Updated DateTime 7 165.1 cm 19.7 kg/m2 03102.6 g 97.2 [degF] 98 % 98 % 70 /min 112/80 mm[Hg] Tabatha Gallegos ma [facility] 7 10:10:07 Date Recorded Body height Body mass index (BMI) Body weight Body temperature Oxygen saturation Oxygen saturation in Arterial blood by Pulse oximetry Heart rate Systolic And Diastolic Provider Name and Address Organization Details Last Updated DateTime 9 165.1 cm 19.3 kg/m2 35569.7 1 g 97 [degF] 99 % 99 % 66 /min 117/82 mm[Hg] Alexa ANGELICA Etienne [facility] 9 11:11:23 Social History Question Answer Notes LastModified by Organizat ion Details LastModified Time Tobacco Smoking Status Never Smoker Tabatha Rainey hector [facility] 05/01/2016 09:47:08 What Was The Date Of [...] conjugate PCV 13 5 completed Not Available [facility] 04/25/2016 05:39:04 Influenza, split virus, trivalent, preservative 5 completed Not Available [facility] 04/25/2016 05:39:04 Tdap 0 completed Not Available [facility] 04/25/2016 05:39:04 zoster live 8 completed Not Available [facility] 04/25/2016 05:39:04 Influenza, split virus, trivalent, preservative 3 completed Not Available [facility] 04/25/2016 05:39:04 pneumococcal polysaccharide PPV23 0 completed Not Available [facility] 04/25/2016 05:39:05 Influenza, split virus, trivalent, preservative 2 completed Not Available [facility] 04/25/2016 05:39:05 Influenza, high-dose, trivalent, PF 7 completed Mica Camargory [place], [place] [facility] 02/14/2017 12:54:13 pneumococcal polysaccharide PPV23 7 completed Mica Hilton [place], [place] [facility] 02/14/2017 12:55:08 Influenza, high-dose, trivalent, PF 8 completed Suri Pearce MD Attn: Accounting,[address] [place], [address], [place] [facility] 01/31/2018 18:02:58 Past Encounters Encounter ID Performer Location Encounter Start Date Encounter Closed Date Diagnosis/Indication Diagnosis SNOMED-CT Code Diagnosis ICD10 Code Diagnosis Note [id number] Tara Hudson MD [facility] [address] [place] [address] 05/01/2016 10:56:51 05/02/2016 16:39:27 Benign essential hypertension 2912583 I10 Osteoarthr itis of wrist 217437819 M19.031 M19.359 [id number] Tara Hudson MD [facility] [address] [place] [address] 11/08/2016 09:54:23 11/08/2016 14:33:05 Osteoarthritis of wrist 878933227 M19.031 M19.032 Benign ess ential hypertension 8781629 I10 Allergic r hinitis caused by pollen 46370422 J30.1 Screening for malignant neoplasm of breast 466468860 Z12.39 Senile hyperkeratosis 39 6360225 L82.1 [id number] Tara Hudson MD [facility] [address] [facility] [address] 10/31/2017 12:18:48 11/01/2017 12:56:39 Benign essential hypertension 0515573 I10 Fatigue 10345308 R53.83 Osteoarthr itis of wrist 558770199 M19.031 M19.032 Allergic r hinitis caused by pollen 00664277 J30.1 Vertigo 517689459 R42 Pain of left hand 765056 5309 47190 M79.642 and ganglions of right hand [id number] Tara Hudson MD [facility] [address] [place] [address] 11/10/2018 10:37:45 11/10/2018 12:16:24 Adult health examination 595803228 Z00.00 Benign ess ential hypertension 6357704 I10 Osteoarthr itis of wrist 953804240 M19.031 M19.032 Low back pain 507600936 M54.5 Ganglion of wrist 079817 009 M67.431 Osteopenia 444137748 M85 .9 Health Concerns Section Related Observation LastModified by Organization Detai ls LastModified Time None Recorded Concern Status LastModified by Organization Details LastModified Time None Recorded Advance Directives Directive None Recorded Payers Insurance Date Sequence Insurance Name Policy Number Policy Jacques Covered Member ID Jacques Member ID Guarantor Name 11/10/2018 1 [place] Katina Vinson [id number] Katina Vinson 11/10/2018 1 [place] Katina Vinson [id number] Katina Vinson 11/10/2018 2 COMBINED INSURANCE - [employer] (MEDICARE SUPPLEMENT) PLAN F Katina Vinson [id number] Katina Vinson 11/10/2018 3 [place] - [place] - [facility]HC Katina Vinson [id number] Katina Vinson Notes Date Note Type Note [...] Context:no new detergents or skin products Tara Hudson MD Attn: Accounting,[address] [place], [address], [place] [facility] 05/01/2016 11:55:36 11/08/2016 text/html DysphagiaReporte d bypatient.Location:thr oat Quality:tightness Severity:same Duration:present for 6-12 months Onset/Timing:worse with meals Context:solids only Alleviating Factors:drinking liquids Associated Symptoms:no chest pain; Ear congestion over the past few days, takes loratidine daily with no relief.Notes:Hx of ulcerRash/Skin LesionReported bypatient.Location:[facility]; Removal of Seboric Keratosis. 1cm lesions. Quality:not painful;itchy;multiple Severity:worsening Duration:has noted for >3 months Context:no new detergents or skin products Aggravating Factors:clothing (bra line) Associated Symptoms:no fever Tara Hudson MD Attn: Accounting,[address] [facility], [place], [address], [facility] 11/08/2016 14:28:43 10/31/2017 text/html Hypertension F/UReported bypatient.Associated Symptoms:no chest pain; no shortness of breath; no palpitations; no edema; no calf pain with exertion;dizziness(las t for several seconds, started about 4-5 months ago);lightheadedness Lifestyle:regular exercise (daily); limiting/avoiding salt Medications:taking medications as directed; no side effects from medication; Does not check BP.Rash/Skin LesionReported bypatient.Location:[facility] (right); skin masses Quality:not painful; stable;multiple(two) Severity:worsening Duration:has noted for >3 months (1 1/2 months) Onset/Timing:abrupt onset Context:no new detergents or skin products; no one else with similar rash; not scratching Alleviating Factors:nothing gives relief Aggravating Factors:nothing makes it worse Associated Symptoms:no fever Tara Hudson MD Attn: Accounting,[address] , [place], [address], [facility] 10/31/2017 14:02:59 11/10/2018 text/html Medicare Annual Wellness [...] or no assistance Falls Risk Assessment:dizziness/v ertigo Tara Hudson MD Attn: Accounting,[address] [facility], [place], [address], [place] [facility] 11/10/2018 12:07:18 OBGyn Episode No OBEpisode recorded.
[2024-10-30 18:42] LABS: Hematocrit 42.2 % (37.0-47.0); Hemoglobin 13.9 g/dL (12.0-15.0); Immature Granulocyte Percent A 0.3 % (0-0.5); Lymphocytes Absolute Auto 1.05 K/mm3 (0.9-3.2); Mean Corpuscular HGB Conc 32.9 g/dl (32-36); Mean Corpuscular Hemoglobin 31.6 pg (26-34); Mean Corpuscular Volume 95.9 fl (80-100); Nucleated Red Blood Cells Absolute Auto 0.000 K/mm3 (0.0-0.012); Nucleated Red Blood Cells Perc 0.0 % (0.0-0.2); Platelet Count Result 264 k/mm3 (150-375); Red Blood Count 4.40 M/mm3 (4.2-5.4); White Blood Count 9.3 K/mm3 (4.5-10.0)
== END 2024-10-30 11:53 | disposition home or self-care (01) ==
PROVIDERS: PCP Nurse Practitioner Family; Visit Provider Nurse Practitioner
DX: I48.0 Paroxysmal atrial fibrillation (principal)
CPT/HCPCS: 36415; 85025

== ENCOUNTER 2024-10-30 19:54 | Emergency (ER) | payer MEDICARE, SELFPAY ==
--- NOTE | ~2024-10-30 | XR_ITS ---
XR chest 1V portable Ordering provider: Herbie Krishnamurthy MD History: 79 years Female with . CHEST PAIN . Comparison: None. FINDINGS: MEDIASTINUM: The cardiac silhouette is not enlarged. Device projected over the left hemithorax. LUNGS: No effusions or pneumothorax. Bibasilar opacification suggestive of atelectasis versus pneumon ia. OTHER: No free air under the diaphragm. Degenerative changes of the spine. IMPRESSION: Bibasilar atelectasis versus pneumonia. Reviewed, dictated and finalized at location A.
--- NOTE | 2024-10-30 19:56 | ECG_ITS ---
Test Date: 2024-10-30 20:08:27 Measurements Intervals [place] Rate: 98 P: 11 DE: 194 QRS: -49 QRSD: 98 T: 12 QT: 329 QTc: 422 Interpretive Statements SINUS RHYTHM POSSIBLE ANTERIOR MYOCARDIAL INFARCTION , OF INDETERMINATE AGE INFERIOR MYOCARDIAL INFARCTION , PROBABLY OLD Electronically Signed On 10-31-2024 08:11:36 CDT by Avery Goldsmith D.O
--- OUTSIDE RECORDS SUMMARY | 2024-10-30 19:57 | XMS_ITS | Clinical Summary ---
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 Maker Metal Name Role Phone Rachel Friend NP Primary Care Provider [phone] Todd Cedeno MD Unavailable [phone] Allergies Active Allergy Reactions Criticality Noted Date [...] Diagnosed Date Coronary artery disease invo lving [place] coronary artery of [place] heart with angina pectoris 07/14/2024 Gastroesophageal reflux disease without esophagi tis 07/14/2024 Anxiety 07/14/2024 CAD in [place] artery 07/14/2024 Angina pectoris, unstable 07/14/2024 SVT (supraventricular tachycardia) 04/18/2023 Atypical chest pain 04/18/2023 Closed fracture of mandible 01/04/2023 Fall, initial encounter 12/03/2022 Open fracture of mandible 12/03/2022 Status post placement of implantable loop record er 07/17/2022 Overview (07/17/2022): Siano Mobile Silicontronic LNQ22 Loop Recorder. Dx; Syncope, Tachycardia, Palpitations. DOI 06/15/2022-Fleissner. Mirza. AquarisPLUS Int remote monitoring. Visit for wound check 06/22/2022 [...] Description 10/30/2024 11:00 AM CDT Office Visit [facility] Cardiology [address] [place] [address] [place] [phone] Rosa Cotto NP Paroxysmal atrial fibrillation (HCC) (Primary Dx); CAD in [place] artery 10/30/2024 Telephone Arrhythmia Center [address] [facility] [address] [address] Piero Triana MD 10/19/2024 7:45 AM CDT Ancillary Procedure [facility] Cardiology [address] [place] [address] [place] [phone] Paroxysmal atrial fibrillation (HCC) (Primary Dx); Palpitations; Status post placement of implantable loop recorder; Syncope and collapse; SVT (supraventricular tachycardia) 10/19/2024 Telephone [facility] Cardiology [address] [place] [address] [place] [phone] Todd Cedeno MD 10/16/2024 Telephone [facility] Cardiology [address] [place] [address] [place] [phone] Todd Cedeno MD 09/07/2024 7:15 AM CDT Ancillary Procedure [facility] Cardiology [address] [place] [address] [place] [phone] Status post placement of implantable loop recorder (Primary Dx); Syncope and collapse; SVT (supraventricular tachycardia); Palpitations 09/07/2024 Telephone [facility] Orthopedics and Sports Medicine [facility] [address] [place] [phone] Dallas Caruso MD 08/27/2024 8:00 AM CDT Ancillary Procedure [facility] Cardiology [address] [place] [phone] Palpitations; Status post placement of implantable loop recorder; Syncope and collapse; SVT (supraventricular tachycardia) 08/27/2024 Telephone [facility] Cardiology [address] [place] [address] Todd Cedeno MD 08/26/2024 Orders Only [facility] Cardiology [address] [place] [address] Rosa Cotto NP 08/07/2024 11:15 AM CDT Office Visit [facility] Orthopedics and Sports Medicine [facility] [address] [place] [phone] Dallas Caruso MD Trochanteric bursitis of left hip; Primary osteoarthritis of both knees 08/07/2024 11:03 AM CDT - 08/07/2024 11:59 PM CDT Hospital Encounter [facility] Di[facility] Imaging [address] [place] [address] Left hip pain; Left knee pain, unspecified [...] Procedure: PCI BALJEET MAJOR CORONARY C9600 - 11434; Surgeon: Xu Bhardwaj MD; Location: [facility] CARDIAC TENNIS COACH; Service: Cardiovascular; Laterality: N/A; Medical devices from this surgery are in the Medical Devices section. CARDIAC CATHETERIZATION 07/14/2024 N/A Procedure: Percutaneous Coronary Lithotripsy W/ PCI (+) 18632; Surgeon: Xu Bhardwaj MD; Location: [facility] CARDIAC TENNIS COACH; Service: Cardiovascular; Laterality: N/A; Medical devices from this surgery are in the Medical Devices section. CARDIAC CATHETERIZATION 07/14/2024 N/A Procedure: IVUS NON-COR 1ST VESSEL; Surgeon: Xu Bhardwaj MD; Location: [facility] CARDIAC TENNIS COACH; Service: Cardiovascular; Laterality: N/A; Medical devices from [...] drink = 0.6 oz pur e alcohol) [facility] Utilities Answer Date Recorded In [...] often do you attend chur ch or baptism services? Never 07/15/2024 Do you belong to any clubs o r organizations such as lutheran groups, unions, fraternal or athletic groups, or [...] any time in the past 12 [facility], were you homeless or living in a correction (including now)? No 07/15/2024 Personal Safety Answer Date Recorded Have you ever been in or are you currently in a harmful physical or emotional relationship or is someone making you feel afraid or unsafe? 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 Gender Identity Female 12/12/2018 8:34 AM [...] 019, 02/10/2018 Medical Devices Implanted Type Area Relief Operator Device Identifier Shelf Expiration Date Model / Serial / Lot Implantable Loop Recorder Implantable Loop Recorder Chest Cast Vascular System Closure Repair Femoral Artery Suture Mediated Perclose Prostyle 78962-70 - S0 - [id number] Implanted:Qty: 1 on 07/14/2024 by Xu Bhardwaj MD at [facility] Other - see comments Cast Vascular 03/21/2026 30157-84 / 0 / [id number] Medtronic Inc Infuse Kit Xs Graft Bone Rhbmp-2 Bovine Collagen Lumbar Taper [id number] - [id number] Implanted:Qty: 1 on 12/05/2022 by Ion Vergara MD at [facility] N/A: Ronald Medtronic Inc [id number] 04/21/2024 [id number] / / [id number] [employer] Vitoss Void Filler Foam Pack Bioactive Substitute 2.5ml Bone 0908-0465 - [id number] Implanted:Qty: 1 on 12/05/2022 by Ion Vergara MD at [facility] N/A: Ronald [employer] [id number] 06/19/20239134-5461 / / [id number] Nimble TV Synergy Xd Monorail 2.75mm 38mm 144cm Delivery System 1 Access [id number] - S0 - [id number] Implanted:Qty: 1 on 07/14/2024 by Xu Bhardwaj MD at [facility] [employer] TV 11/27/2025 [id number] / 0 / [id number] Explanted Type Area Relief Operator Device Identifier Shelf Expiration Date Model / Serial / Lot Elvia Craniomaxillofacial Leibinger [place] 2 2mm 5mm Self Tap Cross Pin Maxillofacial [id number] - [id number] Implanted:Qty: 8 on 12/05/2022 by Ion Vergara MD at [facility] Explanted:Qty: 8 on 01/10/2023 at [facility] [place] Mandible Elvia Craniomaxillofacial [id number] / / [place] Craniomaxillofacial Leibinger [place] 2 Smart Lock 9 Hole Mandible Small Plate Bone [id number] - [id number] Implanted:Qty: 2 on 12/05/2022 by Ion Vergara MD at [facility] Explanted:Qty: 2 on 01/10/2023 at [facility] Mandible [place] Craniomaxillofacial [id number] / / [place] Craniomaxillofacial Leibinger [place] 2 Smartlock 2mm 8mm Self Drill Lock 50 - [id number] Implanted:Qty: 10 on 12/05/2022 by Ion Vergara MD at [facility] Explanted:Qty: 10 on 01/10/2023 at [facility] [place] Mandible [place] Craniomaxillofacial 50- / / [place] Craniomaxillofacial 16 Hole Maxillofacial 1.5mm Mini Plate Bone [id number] - [id number] Implanted:Qty: 1 on 12/05/2022 by Ion Vergara MD at [facility] Explanted:Qty: 1 on 01/10/2023 by Ion Vergara MD at [facility] [place] Mandible [place] Craniomaxillofacial [id number] / / Elvia Craniomaxillofacial Leibinger [place] 2 2mm 8mm Lock Cross Pin Mandibular Screw [id number] - [id number] Implanted:Qty: 2 on 12/05/2022 by Ion Vergara MD at [facility] Explanted:Qty: 2 on 01/10/2023 at [facility] [place] Mandible Elvia Craniomaxillofacial [id number] / / Elvia Craniomaxillofacial Leibinger [place] 2 2mm 10mm Lock Cross Pin Maxillofacial Screw [id number] - [id number] Implanted:Qty: 2 on 12/05/2022 by Ion Vergara MD at [facility] Explanted:Qty: 2 on 01/10/2023 at [facility] Mandible Elvia Craniomaxillofacial [id number] / / Elvia Craniomaxillofacial Leibinger [place] 2 2mm 12mm Lock Cross Pin Maxillofacial Screw [id number] - [id number] Implanted:Qty: 2 on 12/05/2022 by Ion Vergara MD at [facility] Explanted:Qty: 2 on 01/10/2023 at [facility] Mandible Elvia Craniomaxillofacial [id number] / / [place] Craniomaxillofacial Plate Mini 8mm Mndb [address] Condensed 2mm Screw Bone Ti [id number] - [id number] Implanted:Qty: 1 on 12/05/2022 by Ion Vergara MD at [facility] Explanted:Qty: 1 on 01/10/2023 at [facility] [place] Mandible [place] Craniomaxillofacial [id number] / / Procedures Procedure Name Priority Date/Time [...] recorder Syncope and collapse SVT (supraventricular tachycardia) ID ARTHROCENTESIS ASPIR&/INJ MAJOR JT/BURSA W/O US Routine 08/07/2024 11:15 AM CDT Primary osteoarthritis of both knees ID ARTHROCENTESIS ASPIR&/INJ MAJOR JT/BURSA W/O US Routine [...] scanned report. [facility] remote f/u 11/30/2024. Mally Payton, MEGAN us Todd Cedeno MD CV CARDIAC [facility] Final Result * DEVICE CHECK - REMOTE (09/07/2024 12:40 PM CDT) Anatomical Region Laterality Modality Other Narrative 10/26/2024 7:59 AM CDT Medtronic LNQ22 Loop Recorder. Dx; Syncope, Tachycardia, Palpitations, PAF. DOI 06/15/2022-Angelica. Hermes. [facility] remote monitoring. Routine ILR remote. Normal [...] RN Todd Cedeno MD CV CARDIAC SERVICES [facility] Final Result * DEVICE CHECK - REMOTE (08/27/2024 11:03 AM CDT) Anatomical Region Laterality Modality Other Narrative 08/27/2024 12:00 PM CDT Prosper LNQ22 Loop Recorder. Dx; Syncope, Tachycardia, Palpitations. DOI 06/15/2022-Angelica. Hermes. [facility] remote monitoring. Unscheduled loop recorder remote [...] duration time. Scheduled [facility]link remote 09/07/2024. Mally Payton RN us Todd Cedeno MD CV CARDIAC SERVICES PROCE DURES Final Result * ID ARTHROCENTESIS ASPIR&/INJ MAJOR JT/BURSA W/O US (08/07/2024 [...] MD IN CLINIC/BEDSIDE ORDERABLES Final Result * ID ARTHROCENTESIS ASPIR&/INJ MAJOR JT/BURSA W/O US (08/07/2024 [...] signed by Dallas Caruso T: Report ID: [id number] Reading Location: [place] [address] Procedure Note Dallas Caruso MD - 08/07/2024 [...] signed by Dallas Caruso T: Report ID: [id number] Reading Location: [place] [address] us Dallas Caruso MD IMG XR PROCEDURES [...] signed by Dallas Caruso T: Report ID: [id number] Reading Location: [place] [address] Procedure Note Dallas Caruso MD - 08/07/2024 [...] signed by Dallas Caruso T: Report ID: [id number] Reading Location: [place] [address] Dallas Caruso MD IMG XR PROCEDURES Final Resu lt from Last 3 Months Insurance MEDICARE REPLACED BY [facility] MEDICARE REPLACED BY [facility] MEDICARE BLUE CROSS MEDICARE SUPPLEMENT MEDICARE REPLACED BY [facility] Advance Directives For more information, please contact: [phone] Documents on File Type Date Recorded Patient Cement Breaker Expl anation ADVANCE DIRECTIVE 08/21/2012 12:00 AM TJ Leger WILL ADVANCE DIRECTIVE 08/21/2012 12:00 AM POWER OF JUNIOR [employer] FINANCIAL/MEDICAL * Full Code (Latest Code Status on File) Date Activated Date Inactivated Comments 07/14/2024 12:14 PM 07/15/2024 6:47 PM * Full Code Date Activated Date Inactivated Comments 12/04/2022 12:40 AM 12/07/2022 8:03 PM Care Teams Organ Pipe Maker Metal Relationship Specialty Start Date End Date Rachel Friend NP [address] [place] [address] PCP - General Family Medicine 11/26/23 Todd Cedeno MD [address], [address] [place] [address] Consulting Physician Cardiology 07/15/24
--- OUTSIDE RECORDS SUMMARY | 2024-10-30 19:57 | XMS_ITS | Referral Summary ---
Author Organization [facility] Address [address] [place] [address] Care Team Providers Care Curator [employer] Name Role Phone Rachel Friend NP Primary Care Provider [phone] Todd Cedeno MD Unavailable Encounters Date Type Department Care Team Description 10/30/2024 Telephone Arrhythmia Center [address], [place] [address] Piero Triana MD 10/30/2024 11:00 AM CDT Office Visit [facility] Cardiology [address] [place] [phone] Rosa Cotto NP Paroxysmal atrial fibrillation (HCC) (Primary Dx); CAD in gakona artery 10/19/2024 Telephone [facility] Cardiology [address] [place] [phone] Todd Cedeno MD 10/19/2024 7:45 AM CDT Ancillary Procedure [facility] Cardiology [address], [place] [address] Paroxysmal atrial fibrillation (HCC) (Primary Dx); Palpitations; Status post placement of implantable loop recorder; Syncope and collapse; SVT (supraventricular tachycardia) 10/16/2024 Telephone [facility] Cardiology [address] [place] [address] [place] [phone] Todd Cedeno MD 09/07/2024 Telephone [facility] Orthopedics and Sports Medicine [address] [place] [phone] Dallas Caruso MD 09/07/2024 7:15 AM CDT Ancillary Procedure [facility] Cardiology [address] [place] [address] [place] [phone] Status post placement of implantable loop recorder (Primary Dx); Syncope and collapse; SVT (supraventricular tachycardia); Palpitations 08/27/2024 8:00 AM CDT Ancillary Procedure [facility] Cardiology [address] [place] [address] [place] [phone] Palpitations; Status post placement of implantable loop recorder; Syncope and collapse; SVT (supraventricular tachycardia) 08/27/2024 Telephone [facility] Cardiology [address] [place] [address] [place] [phone] Todd Cedeno MD 08/26/2024 Orders Only [facility] Cardiology [address] [place] [address] [place] [phone] Rosa Cotto NP 08/07/2024 11:03 AM CDT - 08/07/2024 11:59 PM CDT Hospital Encounter [facility] Diag Imaging [address] [place] [phone] Left hip pain; Left knee pain, unspecified chronicity Discharge Disposition: Discharge to home or self care 08/07/2024 11:15 AM CDT Office Visit [facility] Orthopedics and Sports Medicine [address] [place] [address] [place] [phone] Dallas Caruso MD Trochanteric bursitis of left [...] total) by mouth daily 30 tablet 11 03/26/202 5 03/26/20 26 Active omega-3 fatty acids-fish oil 300-1,000 mg capsule Take 2 capsules (2 g total) by mouth daily Active glucosamine/cho ndr stack A sod (OSTEO BI-FLEX ORAL) Take by mouth Active diltiazem (TIAZAC) 120 mg 24 hr capsuleIndicati ons:SVT (supraventricul ar tachycardia) Take 1 capsule (120 mg total) by mouth daily 90 capsule 3 5 07/29/19 26 Active rosuvastatin (CRESTOR) 20 mg tablet Take 1 tablet (20 mg total) by mouth daily 90 tablet 3 5 10/17/19 26 Active rosuvastatin (CRESTOR) 20 mg tablet Take 1 tablet (20 mg total) by mouth daily 30 tablet 11 5 10/17/19 Discontinu ed(Reorder ) Active Problems Problem Noted Date Diagnosed Date 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 Dx; Syncope, Tachycardia, Palpitations. DOI 06/15/2022-Fleissner. Mirza. [facility] remote monitoring. Visit for wound check [...] drink = 0.6 oz pur e alcohol) [facility] Utilities Answer Date Recorded In the past 12 months has e electric, gas, oil, or water [employer] threatened to shut off services in your home? No 07/15/2024 Social Connection and Isolation Panel [NHANES] A nswer Date Recorded Frequency of Communication with Friends and Fami ly Not on file 07/15/2024 How often do you get togethe r with friends or relatives? Three times a week 07/15/2024 How often do you attend chur ch or worship services? Never 07/15/2024 Do you belong to any clubs o r organizations such as religion groups, unions, fraternal or athletic groups, or [...] any time in the past 12 m [place], were you homeless or living in a skilled nursing (including now)? No 07/15/2024 Personal Safety Answer Date Recorded Have you ever been in or are you currently in a harmful physical or emotional relationship or is someone making you feel afraid or unsafe? 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 Gender Identity Female 12/12/2018 8:34 AM [...] on file Medical Devices Implanted Type Area Shoeblack Device Identifier Shelf Expiration Date Model / Serial / Lot Implantable Loop Recorder Implantable Loop Recorder Chest Cast Vascular System Closure Repair Femoral Artery Suture Mediated Perclose Prostyle 78754-00 - S0 - [id number] Implanted:Qty: 1 on 07/14/2024 by Xu Bhardwaj MD at [facility] Other - see comments Cast Vascular 03/21/2026 79838-55 / 0 / [id number] Medtronic Inc Infuse Kit Xs Graft Bone Rhbmp-2 Bovine Collagen Lumbar Taper [id number] - [id number] Implanted:Qty: 1 on 12/05/2022 by Ion Vergara MD at [facility] N/A: Chin Medtronic Inc [id number] 04/21/2024 [id number] / / [id number] [employer] Vitoss Void Filler Foam Pack Bioactive Substitute 2.5ml Bone 4679-6274 - [id number] Implanted:Qty: 1 on 12/05/2022 by Ion Vergara MD at [facility] N/A: Chin [employer] [id number] 06/19/2023 7743-1583 / / [id number] ResolutionTube Synergy Xd Monorail 2.75mm 38mm 144cm Delivery System 1 Access [id number] - S0 - [id number] Implanted:Qty: 1 on 07/14/2024 by Xu Bhardwaj MD at [facility] [employer] 11/27/2025 [id number] / 0 / [id number] Explanted Type Area Shoeblack Device Identifier Shelf Expiration Date Model / Serial / Lot Evans Craniomaxillofacial Leibinger Alpine 2 2mm 5mm Self Tap Cross Pin Maxillofacial 50- - [id number] Implanted:Qty: 8 on 12/05/2022 by Ion Vergara MD at [facility] Explanted:Qty: 8 on 01/10/2023 at [facility] Mandible Elvia Craniomaxillofacial 50- / / Elvia Craniomaxillofacial Leibinger Alpine 2 Smart Lock 9 Hole Mandible Small Plate Bone [id number] - [id number] Implanted:Qty: 2 on 12/05/2022 by Ion Vergara MD at [facility] Explanted:Qty: 2 on 01/10/2023 at [facility] Mandible Elvia Craniomaxillofacial [id number] / / Evans Craniomaxillofacial Leibinger Alpine 2 Smartlock 2mm 8mm Self Drill Lock 50-89627 - [id number] Implanted:Qty: 10 on 12/05/2022 by Ion Vergara MD at [facility] Explanted:Qty: 10 on 01/10/2023 at [facility] Mandible Elvia Craniomaxillofacial [id number] / / Elvia Craniomaxillofacial 16 Hole Maxillofacial 1.5mm Mini Plate Bone 92-99506 - [id number] Implanted:Qty: 1 on 12/05/2022 by Ion Vergara MD at [facility] Explanted:Qty: 1 on 01/10/2023 by Ion Vergara MD at [facility] [place] Mandible Elvia Craniomaxillofacial [id number] / / Elvia Craniomaxillofacial Leibinger Alpine 2 2mm 8mm Lock Cross Pin Mandibular Screw [id number] - [id number] Implanted:Qty: 2 on 12/05/2022 by Ion Vergara MD at [facility] Explanted:Qty: 2 on 01/10/2023 at [facility] [place] Mandible Elvia Craniomaxillofacial [id number] / / Elvia Craniomaxillofacial Leibinger Alpine 2 2mm 10mm Lock Cross Pin Maxillofacial Screw [id number] - [id number] Implanted:Qty: 2 on 12/05/2022 by Ion Vergara MD at [facility] Explanted:Qty: 2 on 01/10/2023 at [facility] [place] Mandible Elvia Craniomaxillofacial [id number] / / Elvia Craniomaxillofacial Leibinger Alpine 2 2mm 12mm Lock Cross Pin Maxillofacial Screw [id number] - [id number] Implanted:Qty: 2 on 12/05/2022 by Ion Vergara MD at [facility] Explanted:Qty: 2 on 01/10/2023 at [facility] [place] Mandible Evans Craniomaxillofacial [id number] / / Evans Craniomaxillofacial Plate Mini 8mm Mndb [address] Condensed 2mm Screw Bone Ti [id number] - [id number] Implanted:Qty: 1 on 12/05/2022 by Ion Vergara MD at [facility] Explanted:Qty: 1 on 01/10/2023 at [facility] [place] Mandible Elvia Craniomaxillofacial [id number] / / Procedures Procedure Name Priority Date/Time [...] recorder Syncope and collapse SVT (supraventricular tachycardia) AK ARTHROCENTESIS ASPIR&/INJ MAJOR JT/BURSA W/O US Routine 08/07/2024 11:15 AM CDT Primary osteoarthritis of both knees AK ARTHROCENTESIS ASPIR&/INJ MAJOR JT/BURSA W/O US Routine [...] Modality Other Narrative 10/26/2024 7:59 AM CDT Zhou [employer] LNQ22 Loop Recorder. Dx; Syncope, Tachycardia, Palpitations, PAF. DOI 06/15/2022-Fleissner. Mirza. [facility] remote monitoring. Routine ILR remote. Normal device function. Battery function-Good. Presenting rhythm: VS, regular 60-70 bpm. Medications: Plavix, ASA 81 mg, Diltiazem. Counters since last scheduled transmission on 09/07/2024. --1 Tachy (Lifetime-109) recorded on 10/17/24, egm SVT-Afib 167 bpm, correlated with Symptom episode. --0 Olrne --0 Pause --3 Symptom (Lifetime-14) episodes, (2) recorded on 10/17/24 and (1) recorded on 09/27/24. egm's SVT-Afib 110-180 bpm. --15 AF (Lifetime-30) egm's AT/AF with max duration of 1 hour 22 minutes on 09/27/24, v-rate 80-158 bpm. See scanned report. [facility] remote f/u 11/30/2024. Mally Payton RN Todd Cedeno MD CV CARDIAC SERVICES PROCE D[facility] Final Result * DEVICE CHECK - REMOTE (09/07/2024 12:40 PM CDT) Anatomical Region Laterality Modality Other Narrative 10/26/2024 7:59 AM CDT [employer] LNQ22 Loop Recorder. Dx; Syncope, Tachycardia, Palpitations, [...] Todd Cedeno MD CV CARDIAC SERVICES PROCE [facility] [place] Final Result * AK ARTHROCENTESIS ASPIR&/INJ MAJOR JT/BURSA W/O US (08/07/2024 [...] MD IN CLINIC/BEDSIDE ORDERABLES Final Result * AK ARTHROCENTESIS ASPIR&/INJ MAJOR JT/BURSA W/O US (08/07/2024 [...] signed by Dallas Caruso T: Report ID: [id number] Reading Location: [place] [address] Procedure Note Dallas Caruso MD - 08/07/2024 [...] signed by Dallas Caruso T: Report ID: [id number] Reading Location: [place] [address] us Dallas Caruso MD IMG XR PROCEDURES [...] signed by Dallas Caruso T: Report ID: [id number] Reading Location: [place] [address] Procedure Note Dallas Caruso MD - 08/07/2024 [...] signed by Dallas METZGER T: Report ID: [id number] Reading Location: [place] [address] us Dallas Caruso MD IMG XR PROCEDURES Final Resu lt from Last 3 [place] [address] [facility] MEDICARE [facility] MEDICARE BLUE CROSS MEDICARE SUPPLEMENT MEDICARE [facility]LY [facility] Advance Directives For more information, please contact: [phone] Documents on File Type Date Recorded Patient Spine Supervisor Expl anation ADVANCE DIRECTIVE 08/21/2012 12:00 AM B[place] WILL ADVANCE DIRECTIVE 08/21/2012 12:00 AM POWER OF BIT AND SHANK DEPARTMENT SUPERVISOR FINANCIAL/MEDICAL * Full Code (Latest Code Status on File) Date Activated Date Inactivated Comments 07/14/2024 12:14 PM 07/15/2024 6:47 PM * Full Code Date Activated Date Inactivated Comments 12/04/2022 12:40 AM 12/07/2022 8:03 PM Care Teams Curator [employer] Relationship Specialty Start Date End Date Rachel Friend NP [address] [place] [address] PCP - General Family Medicine 11/26/23 Todd Cedeno MD [address] [place] [address] Consulting Physician Cardiology 07/15/24
--- OUTSIDE RECORDS SUMMARY | 2024-10-30 19:57 | XMS_ITS | Clinical Summary ---
Author Organization [email or web address] [id number] [facility] Address [address] [place] [address] Care Team Providers Care Plumbing And Heating Mechanic Name Role Phone Emily Tejada MD Primary [...] Comments Blood Pressure 132/82 05/31/2022 11:05 AM KEG WASHER Pulse 100 12/22/2021 12:26 PM CDT Temperature 36.7 C (98.1 F) 01/02/2022 10:54 AM CDT Respiratory Rate 16 01/02/2022 10:54 AM CDT Oxygen Saturation 100% 12/22/2021 12:26 PM CDT Inhaled Oxygen Concentration - - Weight 52.7 kg (116 lb 3.2 oz) 02/05/2023 11:35 AM CDT Height 160 cm (5' 3) 05/31/2022 10:59 AM KEG WASHER Body Mass Index 20.58 05/31/2022 10:59 AM KEG WASHER Plan of Treatment Health Maintenance Due Date [...] 01/20/2015, 12/21/2009 Medical Devices Implanted Type Area Diesel Roller Operator Device Identifier Shelf Expiration Date Model / Serial / Lot Infuse Protein Kit Lg Ii [id number] - [id number] Implanted:Qty: 1 on 12/19/2021 by Biju Littlejohn MD at [facility] N/A: Spine Lumbar MEDTRONIC- SOFAMOR DANEK 03/21/2023 [id number] / NA / [id number] Description:CHECKED BY LG ON 12.20.21 REQ#[id number] Stimulan Caso4 Kt 10ml 620-010 - [id number] Implanted:Qty: 1 on 12/19/2021 by Biju Littlejohn MD at [facility] BI[employer]OMPOSITES 10/19/2024 620-010 / / [id number] Description:CHECKED BY LG ON 12.20.21 REQ#[id number] Spacer Catalyft Pl 7mm Xpndble Strt [id number] - [id number] Implanted:Qty: 1 on 12/19/2021 by Biju Littlejohn MD at [facility] N/A: Spine Lumbar MED[employer]IC- SOFAMOR DANEK 10/30/2029 [id number] / / [id number] Hemostatic Surgiflo 8ml W/ Thrombin 2994 - Sn/A Implanted:Qty: 1 on 12/19/2021 by Biju Littlejohn MD at [facility] Hemostatic N/A: Spine Lumbar J&J- [employer]ICON INC 01/19/2023 2994 / N/A / [id number] Hemostatic Surgiflo 8ml W/ Thrombin 2994 - [id number] Implanted:Qty: 1 on 12/19/2021 by Biju Littlejohn MD at [facility] Hemostatic N/A: Spine Lumbar J&J- [employer] INC 09/19/2022 2994 / / [id number] Cassandra Spacer 7621-0727-N Tas 7 Dg Lg 10mm Implanted:Qty: 1 on 12/19/2021 by Biju Littlejohn MD at [facility] Other N/A: Spine Lumbar MEDTRONIC- SOFAMOR DANEK 07/04/2024 2956-4078-N / / [id number] Description:1X ADD Cassandra Spacer 4128-0137-N Tas 7dg Std 10mm Implanted:Qty: 1 on 12/19/2021 by Biju Littlejohn MD at [facility] Other N/A: Spine Lumbar MEDTRONIC- SOFAMOR DANEK 0745-3528-N / / [id number] Description:1X ADD Terence Cp4 Str Ti 5.1b454tb [id number] - [id number] Implanted:Qty: 1 on 12/19/2021 by Biju Littlejohn MD at [facility] Terence N/A: Spine Lumbar MEDTRONIC- SOFAMOR DANEK [id number] / / Description:load no: 227 227 05 sterilized: [id number] Screw Cdh 7.5x35mm 5.5/6.0 Mas Cc [id number] - [id number] Implanted:Qty: 3 on 12/19/2021 by Biju Littlejohn MD at [facility] Screw N/A: Spine Lumbar MEDTRONIC- SOFAMOR DANEK [id number] / / Description:load no: 227 227 05 sterilized: [id number] Screw Cdh 7.5x40mm 5.5/6.0 Mas Cc [id number] - [id number] Implanted:Qty: 2 on 12/19/2021 by Biju Littlejohn MD at [facility] N/A: Spine Lumbar MEDTRONIC- SOFAMOR DANEK [id number] / / Description:load no: 227 227 05 sterilized: [id number] Screw [id number] 5.5 Mas 7.5x25cc Implanted:Qty: 1 on 12/19/2021 by Biju Littlejohn MD at [facility] N/A: Spine Lumbar MEDTRONIC- SOFAMOR DANEK 11/10/2027 [id number] / / [id number] Description:1X ADD Screw [id number] Bs Cnmas 8.5x80 T/C Implanted:Qty: 2 on 12/19/2021 by Biju Littlejohn MD at [facility] N/A: Spine Lumbar MEDTRONIC- SOFAMOR DANEK 12/19/2021 [id number] / / [id number] Description:1X ADD Screw Endoskeleton 5.5x25mm Tas 0154-1498 - [id number] Implanted:Qty: 3 on 12/19/2021 by Biju Littlejohn MD at [facility] N/A: Spine Lumbar MEDTRONIC- SOFAMOR DANEK 6901-5911 / / Description:load [id number] da te: 12/19/21 YANCI REQ#[id number] Screw Solera 5.5/6.0 Breakoff [id number] - [id number] Implanted:Qty: 12 on 12/19/2021 by Biju Littlejohn MD at [facility] N/A: Spine Lumbar MEDTRONIC- SOFAMOR DANEK [id number] / / Description:load no: 227 227 05 sterilized: [id number] Screw Cdh 5.5x45mm 5.5/6.0 Mas Cc [id number] - [id number] Implanted:Qty: 4 on 12/19/2021 by Biju Littlejohn MD at [facility] N/A: Spine Lumbar MEDTRONIC- SOFAMOR DANEK [id number] / / Description:load no: 227 227 05 sterilized: [id number] Josh Dbm Dbf 6ml [id number] - [id number] Implanted:Qty: 1 on 12/19/2021 by Biju Littlejohn MD at [facility] N/A: Spine Lumbar MEDTRONIC- SOFAMOR DANEK 11/10/2023 [id number] / [id number] / Description:CHECKED BY LG ON 12.20.21 REQ#[id number] Josh Dbm Dbf 6ml [id number] - [id number] Implanted:Qty: 1 on 12/19/2021 by Biju Littlejohn MD at [facility] N/A: Spine Lumbar MED[employer]ONIC- SOFAMOR DANEK 11/10/2023 [id number] / [id number] / Description:CHECKED BY LG ON 12.20.21 REQ#[id number] Cassandra Spacer 6628-4178-N Tas 12d Std 12mm Implanted:Qty: 1 on 12/19/2021 by Biju Littlejohn MD at [facility] N/A: Spine Lumbar [employer]- SOFAMOR DANEK 5465-0960-N / / [id number] Description:1X ADD Insurance MEDICARE PART A AND B [facility] Advance Directives For more information, please contact: [phone] Documents on File Type Date Recorded Patient Real Estate Economist Expl anation Advance Directive Living Will 02/04/2023 10:08 AM Advance Directive POA 05/29/2022 12:52 PM Advance Directive POA 10/18/2021 10:07 AM * Full Code (Latest Code Status on File) Date Activated Date Inactivated Comments 12/19/2021 7:20 PM 12/22/2021 4:17 PM * Full Code Date Activated Date Inactivated Comments 12/19/2021 3:08 PM 12/19/2021 7:20 PM Care Teams Plumbing And Heating Mechanic Relationship Specialty Start Date End Date Emily Tejada MD PCP - General Family Practice 01/14/20 Jade Bean Cardiovascular Disease 10/10/21
--- OUTSIDE RECORDS SUMMARY | 2024-10-30 19:57 | XMS_ITS | Encounter Summary ---
Author Organization [facility] Healthcare Address [address] [place] [address] Care Team Providers Care Cable Television Line Technician Name Role Phone Rachel Friend NP Primary Care Provider [phone] Todd Cedeno MD Unavailable Reason for Visit * Reason Comments Follow-up Discuss ablation Coronary Artery Disease SVT Encounter Details Date Type Department Care Team (Late st Contact Info) Description 10/30/2024 11:00 AM CDT Office Visit [facility] Medical Group Cardiology [address] [place] [id number] Rosa Cotto NP [address] [place], [place] [id number] Paroxysmal atrial fibrillation (HCC) (Primary Dx); CAD in [place] artery Social History Tobacco Use Types Packs/Day Years Used Date Smoking Tobacco: Never Cigarettes Smokeless Tobacco: Never Alcohol Use Standard Drinks/Week Comments Yes 0 (1 standard drink = 0.6 oz pur e alcohol) [facility] Utilities Answer Date Recorded In the past 12 months has e electric, gas, oil, or water company threatened to shut off services in your home? No 07/15/2024 Social Connection and Isolation Panel [NHANES] A nswer Date Recorded Frequency of Communication with Friends and Fami ly Not on file 07/15/2024 How often do you get togethe r with friends or relatives? Three times a week 07/15/2024 How often do you attend chur ch or restoration services? Never 07/15/2024 Do you belong to any clubs o r organizations such as samaritan groups, unions, fraternal or athletic groups, or [...] any time in the past 12 m [facility], were you homeless or living in a half-way (including now)? No 07/15/2024 Personal Safety Answer Date Recorded Have you ever been in or are you currently in a harmful physical or emotional relationship or is someone making you feel afraid or unsafe? Denies 07/14/2024 Comments No Sex and Gender Information Value Date Recorded Sex Assigned at Not on file Legal Sex Female 1:32 AM SEED POTATO ARRANGER Gender Identity Female 12/12/2018 8:34 AM CDT [...] change in fatigue. documented in this encounter Progress Notes * Rosa Cotto NP - 10/30/2024 11:00 AM CDT [facility] Medical Group Cardiology [address] [place] [address] Date of Visit: 10/30/2024 Patient ID: Katina Vinson 1945 Chief Complaint: Katina Vinson is a 79 y.o. female who comes to the office for routine follow up for atrial fibrillation History of Present Illness: Katina Vinson is a 79 y.o. female with SVT, atrial fibrillation (Medtronic loop in place), and coronary artery disease s/p PCI to the OM with staged intervention to the LAD at [facility]. 10/17/2020 Initial Office Consultation with Dr. Bean: Pt is concerned about her BP. Has had four episodes over the last 6 months where she gets dizzy and drops, passed out a couple of times. One episode was when she got up to BR in middle of the night and woke up on the floor. Two episodes occurred when she got up in the morning to feed the dog, and she got real dizzy, and she had to lie downon the floor. May 02 Bp 101/87 and pulse was 135. Another episode on May 27: Heart going crazy, 97/69 mmHg, pulse 117 and 5 min later 97/69 pulse 117. Most recent episode was August 28, pulse was 150 and BP 91/73 mmHg. Can take 2-3 hours before she feels better. Completed Holter Saturday. Rachel Friend NP also wanted to do a stress test. Some ORELLANA w/ any exertion. Sometimes has discomfort in upper arms, a tightness like they were blowing up, at rest, not aware of any palps at that time. Some dizziness when she stands up. Has had racing heartbeats for no reason at all for several years, occurring at rest, lasting coupleof minutes, don't bother her much, but these episodes are different. Occ heart pounds like a piston. Evaluated in [address] Henry at [facility] for palpitations, had a normal echo and stress test. Not able to work hard or exercise 2nd chronic back pain. Allergy to BB for HTN, can't recall name, had petechia on legs to knees, went away after stopping the BB. Gong for vacation in [facility], leaving October 25, back around November 09.. Follow-up note 06/07/2022: She returns today with continued episodes of rapid heartbeat, tachycardia. These episodes are associated with a drop in blood pressure as low as the 90s. She has had presyncope and also syncope at the same time. The episodes will occur quite randomly but on average about 1 time per month. Previous cardiac workup included a monitor which was unremarkable and an echocardiogram which was also unremarkable as below. A loop recorder was advised but patient refused at that point. Patient denies any chest pain, paroxysmal nocturnal dyspnea orthopnea, edema. Her symptoms have been present for about 4 years. Follow-up note 08/10/2022: She has had some episodes of pounding in her chest. Recorder though shows sinus rhythm only. No syncope, presyncope, paroxysmal nocturnal dyspnea, chest pain, shortness of breath. Her symptoms last for few seconds. Follow-up note 12/31/2022: Unfortunately since last visit she fell. She had significant injury including a broken leg and major breaks to her mandible including loss of teeth. She had have facial reconstruction and is just now in the process of healing. She states she got up and started walking towards the kitchen became dizzy. She put herself a cup of coffee and then fell to the right. She hit her head and hit her leg at that point. She decided to stand back up though and that is whenever she passed out completely and injured her face. She denies any palpitations, chest pain, paroxysmal nocturnal dyspnea orthopnea Follow-up note 04/18/2023: She has Rare episodes anterior sharp chest pain radiating to her back. It will last for a minute or 2 and spontaneously resolved. It is not related to exertion. She feels like she has to hold her breath at that time. She does feel little nauseated. Otherwise she is had no syncope, presyncope, paroxysmal nocturnal dyspnea orthopnea, edema palpitations. Follow-up note 11/11/2023: She has some brief rapid heartbeats but nothing sustained and she has not had any syncope, chest pain, paroxysmal nocturnal dyspnea, orthopnea, edema or shortness of breath. Follow-up note 06/17/2024: She still has some palpitations as she thinks maybe a little bit worse. They come and go about 1 time per week and will last for few minutes. She has no syncope, presyncope, paroxysmal nocturnal dyspnea, orthopnea, edema. She has no shortness breath but does have some anterior chest pain which is nonexertional Hospital follow-up with PRETZEL TWISTING MACHINE OPERATOR 07/28/2024: After her last office visit she had a stress test which was abnormal. This led to a cardiac catheterization by Dr. Booth at [facility] on 07/13/2024 where she had PCI on a severe OM branch stenosis (hematoma to right radial artery puncture site), then was transferred to [facility] for complex PCI on an LAD lesion the following day with Dr. Bhardwaj (right femoral artery access). Today the patient reports that she feels so much better since the catheterization. Her shortness of breath is gone and her chest discomfort is better. Bruising in the right arm is resolving. Bruising in the right groin is also resolving and she is not concerned about it. 10/30/2024 follow-up with PRETZEL TWISTING MACHINE OPERATOR - Katina Polina comes to the office today for a follow up visit. She would like to discuss the results of her recent loop device check. Her device check did reveal paroxysmal atrial fibrillation and anticoagulation was recommended. Patient at that time stated she did not want to take Eliquis and scheduled this appointment to discuss further. Patient is main complaintin the office today is significant fatigue. She states that her fatigue is so severe that it is disrupting her quality of life. She is wondering if her fatigue is related to diltiazem-she started feeling fatigued after she was started on this. I explained that there is a small percentage of people who experience fatigue with this medication. She also has questions about the referral to electrophysiology in his questioning whether or not she really needs EP evaluation. I explained the rationale for EP consultation and ultimately she agreed to proceed with this. Also, after extensive conversation about rationale for Eliquis she has agreed to ???give it a try. ?? I am going to check a CBC before initiating Eliquis. Records that I personally reviewed on the day of this visit include: (the interpretation is outlined in the HPI above) I have also reviewed: allergies, current medications, past family history, past medical history, past social history, past surgical history and problem list Review of Systems Constitutional: Positive for malaise/fatigue. Negative for fever, night sweats, weight gain and weight loss. HENT: Negative for hearing loss. Eyes: Negative for blurred vision and visual disturbance. Cardiovascular: Positive for irregular heartbeat and palpitations. Negative for chest pain, claudication, dyspnea on exertion, leg swelling, near-syncope, orthopnea, paroxysmal nocturnal dyspnea and syncope. Respiratory: Negative for shortness of breath, sleep disturbances due to breathing, snoring and wheezing. Hematologic/Lymphatic: Negative for bleeding problem. Musculoskeletal: Negative for muscle cramps and muscle weakness. Gastrointestinal: Negative for abdominal pain, change in bowel habit, diarrhea, nausea and vomiting. Genitourinary: Negative for hematuria. Neurological: Negative for dizziness and headaches. Vital Signs: BP 130/80 (BP Location: Left arm, Patient Position: Sitting) Pulse 77 Ht 165.1 cm (5' 5) Wt 52.6 kg (116 lb) SpO2 97% BMI 19.30 kg/m?? Body mass index is 19.3 kg/m??. Physical Exam Vitals reviewed. Constitutional: General: She is not in acute distress. Appearance: Normal appearance. HENT: Head: Normocephalic and atraumatic. Eyes: Extraocular Movements: Extraocular movements intact. Conjunctiva/sclera: Conjunctivae normal. Neck: Vascular: No carotid bruit. Cardiovascular: Rate and Rhythm: Normal rate and regular rhythm. Heart sounds: Murmur heard. Pulmonary: Effort: Pulmonary effort is normal. No respiratory distress. Breath sounds: Normal breath sounds. Abdominal: General: Bowel sounds are normal. Palpations: Abdomen is soft. Musculoskeletal: General: Normal range of motion. Cervical back: Normal range of motion and neck supple. Skin: General: Skin is warm and dry. Neurological: Mental Status: She is alert and oriented to person, place, and time. Allergies Allergen Reactions Beta-Blockers (Beta-Adrenergic Blocking Agts) Rash Bisoprolol-Hydrochlorothiazide Rash Clarithromycin Stomach upset Erythromycin Stomach upset and Nausea only Methylprednisolone Stomach upset Tramadol Stomach upset Current Outpatient Medications: acetaminophen 500 mg capsule, Take 1 capsule (500 mg total) by mouth every 6 (six) hours as needed for pain, Disp: , Rfl: ALPRAZolam (XANAX) 0.25 mg tablet, Take 0.5 tablets (0.125 mg total) by mouth nightly as needed, Disp: , Rfl: aspirin 81 mg enteric coated tablet, Take 1 tablet (81 mg total) by mouth daily, Disp: 30 tablet, Rfl: 11 biotin 5,000 mcg tablet, sublingual, Place under the tongue every morning, Disp: , Rfl: calcium carb,gluc-mag gluc,ox 500 mg calcium- 250 mg tablet, Take 1 tablet by mouth daily, Disp: , Rfl: cholecalciferol (VITAMIN D-3) 2000 unit tablet, Take 1 tablet (2,000 Units total) by mouth every morning, Disp: , Rfl: clopidogreL (PLAVIX) 75 mg tablet, Take 1 tablet (75 mg total) by mouth daily, Disp: 30 tablet, Rfl: 11 diltiazem (TIAZAC) 120 mg 24 hr capsule, Take 1 capsule (120 mg total) by mouth daily, Disp: 90 capsule, Rfl: 3 famotidine (PEPCID) 20 mg tablet, Take 1 tablet (20 mg total) by mouth daily, Disp: , Rfl: fexofenadine (MARIAM) 180 mg tablet, Take 1 tablet (180 mg total) by mouth every morning, Disp: , Rfl: glucosamine/chondr stack A sod (OSTEO BI-FLEX ORAL), Take by mouth, Disp: , Rfl: lisinopriL (PRINIVIL,ZESTRIL) 40 mg tablet, Take 1 tablet (40 mg total) by mouth every morning, Disp: , Rfl: lutein 40 mg capsule, Take by mouth every morning, Disp: , Rfl: meloxicam (MOBIC) 15 mg tablet, Take 1 tablet (15 mg total) by mouth every morning, Disp: , Rfl: methocarbamol (ROBAXIN) 750 mg tablet, Take 1 tablet (750 mg total) by mouth as needed for muscle spasms, Disp: , Rfl: multivitamin tablet, Take 1 tablet by mouth every morning, Disp: , Rfl: nitroglycerin (NITROSTAT) 0.4 mg SL tablet, Place 1 tablet (0.4 mg total) under the tongue every 5 (five) minutes as needed for chest pain May repeat dose q 5 min, up to 3 doses total, Disp: 90 tablet, Rfl: 0 omega-3 fatty acids-fish oil 300-1,000 mg capsule, Take 2 capsules (2 g total) by mouth daily, Disp: , Rfl: rosuvastatin (CRESTOR) 20 mg tablet, Take 1 tablet (20 mg total) by mouth daily, Disp: 90 tablet, Rfl: 3 Lab Results Component Value Date POTASSIUM 4.1 07/15/2024 BUNSER 10 07/15/2024 CREATININE 0.52 (L) 07/15/2024 CHOL 156 07/15/2024 TRIG 38 07/15/2024 LDLCALC 59 07/15/2024 HDL 88 07/15/2024 Assessment: Diagnoses and all orders for this visit: Paroxysmal atrial fibrillation (HCC) (Primary) - CBC with auto differential; Future CAD in [place] artery She does have symptomatic occurrences of atrial fibrillation and SVT. I explained that she was placed on the diltiazem in order to manage these arrhythmias. She is rather convinced that the diltiazemis causing her to have debilitating fatigue. I told her that she could try holding the diltiazem but if doing so recognizing that she may have more frequent or more symptomatic recurrences of AFib and SVT. She states that she already has symptoms like this and is willing to hold the diltiazem to see if there is a change in her fatigue. She also is going to continue with referral to electrophysiology to discuss long-term management strategies for atrial fibrillation. We will check a CBC prior tostarting Eliquis, but she has agreed to anticoagulation for stroke risk reduction. S/p PCI to OM and staged complex PCI to LAD in June 2024. Not experiencing any angina. Fatigue could be anginal equivalent but doubt this given recent coronary angiogram with no residual disease (did have jailed diag). Continue meical therapy with ASA, plavix, statin. She should return to the office in 6 weeks or earlier if needed. Rosa Cotto ANP- Nurse Practitioner with [facility] This note is dictated and transcribed using reKode Education Direct Software. Treasury Consultant variancesmay occur. Despite proofreading, typographical errors may occur. Cosigned by Todd Cedeno MD at 10/30/2024 1:28 PM CDT documented in this encounter Plan of Treatment Scheduled Orders Name Type Priority Associated Diagnoses Orde r Schedule CBC with auto differential Lab Routine Paroxysmal atrial fibrillation (HCC) Expected: 11/02/2024, Expires: 10/30/2025 documented as of this encounter Visit Diagnoses Diagnosis Paroxysmal atrial fibrillation (HCC)- Primary Atrial fibrillation CAD in [place] artery documented in this encounter Care Teams Cable Television Line Technician Relationship Specialty Start Date End Date Rachel Friend NP [address] [place] [address] PCP - General Family Medicine 11/26/23 Todd Cedeno MD [address], [address] [place] [address] Consulting Physician Cardiology 07/15/24 documented as of this encounter
--- OUTSIDE RECORDS SUMMARY | 2024-10-30 19:57 | XMS_ITS | Encounter Summary ---
Author Organization [facility] Healthcare Address [address] [place] [address] Care Team Providers Care Senior Technical Project Manager Name Role Phone Rachel Friend NP Primary Care Provider [phone] Todd Cedeno MD Unavailable Encounter Details Date Type Department Care Team (Late st Contact Info) Description 10/30/2024 Telephone Arrhythmia Center [address] [facility] [address] [place] [id number] Piero Triana MD [address] [facility] [address], [place] [address] Social History Tobacco Use Types Packs/Day Years Used Date Smoking Tobacco: Never Cigarettes Smokeless Tobacco: Never Alcohol Use Standard Drinks/Week Comments Yes 0 (1 standard drink = 0.6 oz pur e alcohol) [facility] Utilities Answer Date Recorded In the [...] week 07/15/2024 How often do you attend [facility] or syn[facility] services? Never 07/15/2024 Do you belong to any clubs o r organizations such as amish groups, unions, fraternal or athletic groups, or [...] any time in the past 12 m [facility], were you homeless or living in a group home (including now)? No 07/15/2024 Personal Safety Answer Date Recorded Have you ever been in or are you currently in a harmful physical or emotional relationship or is someone making you feel afraid or unsafe? Denies 07/14/2024 Comments No Sex and Gender Information Value Date Recorded Sex Assigned at Not on file Legal Sex Female 1:32 AM STRINGS TEACHER Gender Identity Female 12/12/2018 8:34 AM CDT Sexual Orientation Straight 12/12/2018 8: 34 AM CDT Occupation Industry Job Start Date Job End Date retired Not on file Not on file Not on file documented as of this encounter Miscellaneous Notes * Telephone Encounter - Viviane Beth B.Blanca - 10/30/2024 4:32 PM CDT Pt clld in lvml toschedule new patient appt w/Dr. Triana, per Dr. Cedeno documented in this encounter Plan of Treatment Not on file documented as of this encounter Visit Diagnoses Not on filedocumented in this encounter Care Teams Senior Technical Project Manager Relationship Specialty Start Date End Date Rachel Friend NP [address] [place] [address] PCP - General Family Medicine 11/26/23 Todd Cedeno MD [address] [place] [address] Consulting Physician Cardiology 07/15/24 documented as of this encounter
--- OUTSIDE RECORDS SUMMARY | 2024-10-30 19:57 | XMS_ITS | Encounter Summary ---
Author Organization [facility] Facility Care Team Providers Care Toy Designer Name Role Phone Tara Hudson MD Primary Care Provider Gege Herrera MD Primary Care Provider Rachel Friend LEHR TENDER Primary Care Provider [phone] Emily Clements LEHR TENDER Primary Care Provider [phone] Rachel Friend LEHR TENDER Primary Care Provider [phone] Todd Cedeno MD Unavailable [phone] Encounter Details Date Type Department Care Team (Latest Contact Info) Description 11/25/2017 Orders Only [facility] CLIN[facility] ProviderAlhaji MD [address] [place] [address] Social History Tobacco Use Types Packs/Day Years Used Date Smoking Tobacco: Never Assessed Comments Unknown Sex and Gender Information Value Date Recorded Sex Assigned at Not on file Legal Sex Female 1:32 AM HR BUSINESS PARTNER CONSULTANT Gender Identity Female 12/12/2018 8:34 AM CDT [...] on filedocumented in this encounter Care Teams Toy Designer Relationship Specialty Start Date End Date Tara Hudson MD [address] [facility] [address] [place] [address] PCP - General 12/17/16 11/02/19 Gege Herrera MD [address] [address] PCP - General Family Medicine 11/03/19 10/16/20 Rachel Friend NP [address] [facility] [address] [place] [address] PCP - General Family Medicine 10/17/20 01/09/23 Emily Clements NP [address] [place] [address] PCP - General Nurse Practitioner 01/10/23 11/25/23 Rachel Friend NP [address] [place] [address] PCP - General Family Medicine 11/26/23 Todd Cedeno MD [address] [place] [address] Consulting Physician Cardiology 07/15/24 documented as of this encounter
--- OUTSIDE RECORDS SUMMARY | 2024-10-30 19:57 | XMS_ITS | Encounter Summary ---
Author Organization [facility] Facility Care Team Providers Care Ice Rink Attendant Name Role Phone Tara Hudosn MD Primary Care Provider [phone] Gege Herrera MD Primary Care Provider Rachel Friend OCEAN FREIGHT MANAGER Primary Care Provider [phone] Emily Clements OCEAN FREIGHT MANAGER Primary Care Provider [phone] Rachel Friend OCEAN FREIGHT MANAGER Primary Care Provider [phone] Todd Cedeno MD Unavailable [phone] Encounter Details Date Type Department Care Team (Latest Contact Info) Description 03/05/2016 Orders Only [facility] CLINCONV ProviderAlhaji MD [address] [place] [address] Social History Tobacco Use Types Packs/Day Years Used Date Smoking Tobacco: Never Assessed Comments Unknown Sex and Gender Information Value Date Recorded Sex Assigned at Not on file Legal Sex Female 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 us Historical Provider Final Res ult * PROCEDURE - RESULT (03/05/2016 12:00 AM LABORER [employer]UR[employer]) Narrative 03/05/2016 12:00 AM LABORER TURKEY [employer]ARM Ordered by an unspecified provider. us Historical Provider Final Res ult documented in this encounter Visit Diagnoses Not on filedocumented in this encounter Care Teams Ice Rink Attendant Relationship Specialty Start Date End Date Tara Hudson MD [address] [address] PCP - General 12/17/16 11/02/19 Gege Herrera MD [address] [address] PCP - General Family Medicine 11/03/19 10/16/20 Rachel Friend NP [address] [address] PCP - General Family Medicine 10/17/20 01/09/23 Emily Clements NP [address] [place] [address] PCP - General Nurse Practitioner 01/10/23 11/25/23 Rachel Friend, AIRAM [address] [place] [address] PCP - General Family Medicine 11/26/23 Todd Cedeno MD [address] [place] [address] Consulting Physician Cardiology 07/15/24 documented as of this encounter
--- OUTSIDE RECORDS SUMMARY | 2024-10-30 19:57 | XMS_ITS | Encounter Summary ---
Author Organization [facility] Facility Care Team Providers Care Slusher Operator Name Role Phone Tara Hudson MD Primary Care Provider [phone] Gege Herrera MD Primary Care Provider Rachel Friend TOP FRAME MAKER Primary Care Provider [phone] Emily Clements TOP FRAME MAKER Primary Care Provider [phone] Rachel Friend TOP FRAME MAKER Primary Care Provider [phone] Todd Cedeno MD Unavailable Encounter Details Date Type Department Care Team (Latest Contact Info) Description 12/02/2017 Orders Only [facility] CLINCONV ProviderAlhaji MD [address] [place] [address] Social History Tobacco Use Types Packs/Day Years Used Date Smoking Tobacco: Never Assessed Comments Unknown Sex and Gender Information Value Date Recorded Sex Assigned at Not on file Legal Sex Female 1:32 AM TECHNICAL SUPPORT ENGINEER Gender Identity Female 12/12/2018 8:34 AM [...] on filedocumented in this encounter Care Teams Slusher Operator Relationship Specialty Start Date End Date Tara Hudson MD [address] [facility] [address] [place] [address] PCP - General 12/17/16 11/02/19 Gege Herrera MD [address] [address] PCP - General Family Medicine 11/03/19 10/16/20 Rachel Friend NP [address] [facility] [address] [place] [address] PCP - General Family Medicine 10/17/20 01/09/23 Emily Clements NP [address] [place] [address] PCP - General Nurse Practitioner 01/10/23 11/25/23 Rachel Friend, [address] [place] [address] PCP - General Family Medicine 11/26/23 Todd Cedeno MD [address] [place] [address] Consulting Physician Cardiology 07/15/24 documented as of this encounter
--- OUTSIDE RECORDS SUMMARY | 2024-10-30 19:57 | XMS_ITS | Encounter Summary ---
Author Organization [facility] Facility Care Team Providers Care Technical Aide Name Role Phone Tara Hudson MD Primary Care Provider [phone] Gege Herrera MD Primary Care Provider Rachel Friend WARP WORKER Primary Care Provider [phone] Emily Clements WARP WORKER Primary Care Provider [phone] Rachel Friend WARP WORKER Primary Care Provider [phone] Todd Cedeno MD Unavailable [phone] Encounter Details Date Type Department Care Team (Latest Contact Info) Description 02/22/2016 Orders Only [facility]G CLINCONV ProviderAlhaji MD [address] [place] [address] Social History Tobacco Use Types Packs/Day Years Used Date Smoking Tobacco: Never Assessed Comments Unknown Sex and Gender Information Value Date Recorded Sex Assigned at Not on file Legal Sex Female 1:32 AM DANCER OR CHOREOGRAPHER Gender Identity Female 12/12/2018 8:34 AM CDT [...] AM CDT Ordered by an unspecified provider. [facility] Provider Final Res ult * PROCEDURE - RESULT (02/22/2016 12:00 AM CDT) Narrative 02/22/2016 12:00 AM CDT Ordered by an unspecified provider. [facility] Provider Final Res ult documented in this encounter Visit Diagnoses Not on filedocumented in this encounter Care Teams Technical Aide Relationship Specialty Start Date End Date Tara Hudson MD [address] [address] PCP - General 12/17/16 11/02/19 Gege Herrera MD [address] [address] PCP - General Family Medicine 11/03/19 10/16/20 Rachel Friend NP [address] [address] PCP - General Family Medicine 10/17/20 01/09/23 Emily Clements NP [address] [place] [address] PCP - General Nurse Practitioner 01/10/23 11/25/23 Rachel Friend NP [address] [place] [address] PCP - General Family Medicine 11/26/23 Todd Cedeno MD [address] [place] [address] Consulting Physician Cardiology 07/15/24 documented as of this encounter
--- OUTSIDE RECORDS SUMMARY | 2024-10-30 19:57 | XMS_ITS | Encounter Summary ---
Author Organization [facility] Facility Care Team Providers Care Health Policy Manager Name Role Phone Tara Hudson MD Primary Care Provider [phone] Gege Herrera MD Primary Care Provider Rachel Friend DRY CURE WORKER Primary Care Provider [phone] Emily Clements DRY CURE WORKER Primary Care Provider [phone] Rachel Friend DRY CURE WORKER Primary Care Provider Todd Cedeno MD Unavailable [phone] Encounter Details Date Type Department Care Team (Latest Contact Info) Description 01/04/2016 Orders Only [facility]G CLINCONV ProviderAlhaji MD [address] [place] [address] Social History Tobacco Use Types Packs/Day Years Used Date Smoking Tobacco: Never Assessed Comments Unknown Sex and Gender Information Value Date Recorded Sex Assigned at Not on file Legal Sex Female 1:32 AM MOLD TOOLER Gender Identity Female 12/12/2018 8:34 AM CDT [...] AM CDT Ordered by an unspecified provider. [facility] Provider Final Res ult * PROCEDURE - RESULT (01/04/2016 12:00 AM CDT) Narrative 01/04/2016 12:00 AM CDT Ordered by an unspecified provider. [facility] Provider Final Res ult documented in this encounter Visit Diagnoses Not on filedocumented in this encounter Care Teams Health Policy Manager Relationship Specialty Start Date End Date Tara Hudson MD [address] [address] PCP - General 12/17/16 11/02/19 Gege Herrera MD [address] [address] PCP - General Family Medicine 11/03/19 10/16/20 Rachel Friend NP [address] [address] PCP - General Family Medicine 10/17/20 01/09/23 Emily Clements NP [address] [place] [address] PCP - General Nurse Practitioner 01/10/23 11/25/23 Rachel Friend NP [address] [place] [address] PCP - General Family Medicine 11/26/23 Todd Cedeno MD [address] [place] [address] Consulting Physician Cardiology 07/15/24 documented as of this encounter
--- OUTSIDE RECORDS SUMMARY | 2024-10-30 19:57 | XMS_ITS | Clinical Summary ---
Author Organization [facility] [employer] Address [address] [place] [address] Care Team Providers Care Delivery Associate Name Role Phone Tara Hudson MD Primary Care Provider [phone] Source Comments [facility] [employer]non-owned Affiliates and Associated Physician Practices is amultiple site organization consisting of ambulatory clinics and hospital sitesin [place], [place], [place] and [place]. This disclosure is being madepursuant to the Care Everywhere program and may not contain all information available regarding this patient. Last updated 18.[facility] [employer] Allergies Active Allergy Reactions Criticality Noted Date [...] on file Legal Sex Female 5:57 PM CUSTOMER SERVICE AGENT Gender Identity Not on file Sexual Orientation Not on file Last Filed Vital Signs Vital Sign Reading Time Taken Comments Blood Pressure 128/72 05/27/2018 12:26 PM CUSTOMER SERVICE AGENT Pulse 80 05/27/2018 12:26 PM CUSTOMER SERVICE AGENT Temperature 37 C (98.6 F) 05/27/2018 12:26 PM CUSTOMER SERVICE AGENT Respiratory Rate 16 05/27/2018 12:26 PM CUSTOMER SERVICE AGENT Oxygen Saturation 100% 05/27/2018 12:26 PM CUSTOMER SERVICE AGENT Inhaled Oxygen Concentration - - Weight 52.2 kg (115 lb) 05/27/2018 12:26 PM CUSTOMER SERVICE AGENT Height 162.6 cm (5' 4) 05/27/2018 12:26 PM CUSTOMER SERVICE AGENT Body Mass Index 19.74 05/27/2018 12:26 PM CUSTOMER SERVICE AGENT Plan of Treatment Health Maintenance Due Date [...] topic Insurance MEDICARE MEDICARE MEDICARE Care Teams Delivery Associate Relationship Specialty Start Date End Date Tara Hudson MD [address] [place] [address] [place] [address] PCP - General 12/12/12
--- OUTSIDE RECORDS SUMMARY | 2024-10-30 19:57 | XMS_ITS | Clinical Summary ---
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 [employer] Not on file Not on file Not on file Last Filed Vital Signs Vital Sign Reading Time Taken Comments Blood Pressure 148/89 05/09/2022 11:53 AM GRAIN CLEANER AND TRANSFER OPERATOR Pulse 93 05/09/2022 11:53 AM GRAIN CLEANER AND TRANSFER OPERATOR Temperature 36.6 C (97.8 F) 05/09/2022 11:53 AM GRAIN CLEANER AND TRANSFER OPERATOR Respiratory Rate 18 04/20/2022 8:01 AM GRAIN CLEANER AND TRANSFER OPERATOR Oxygen Saturation 99% 04/20/2022 8:01 AM GRAIN CLEANER AND TRANSFER OPERATOR Inhaled Oxygen Concentration - - Weight 51.9 kg (114 lb 6.4 oz) 05/09/2022 11:53 AM GRAIN CLEANER AND TRANSFER OPERATOR Height 160 cm (5' 3) 05/09/2022 11:53 AM GRAIN CLEANER AND TRANSFER OPERATOR Body Mass Index 20.27 05/09/2022 11:53 AM GRAIN CLEANER AND TRANSFER OPERATOR Plan of Treatment Health Maintenance Due [...] age to complete this topic Insurance MEDICARE [facility] Care Teams Manager Assurance Relationship Specialty Start Date End Date Rachel Friend FNP PCP - General Nurse Practitioner Family 07/20/21
--- OUTSIDE RECORDS SUMMARY | 2024-10-30 19:57 | XMS_ITS | Encounter Summary ---
Author Organization [facility] Facility Care Team Providers Care Assistant Professor Surgical Technology Name Role Phone Tara Hudson MD Primary Care Provider [phone] Gege Herrera MD Primary Care Provider Rachel Friend MOVE COORDINATOR Primary Care Provider [phone] Emily Clements MOVE COORDINATOR Primary Care Provider [phone] Rachel Friend MOVE COORDINATOR Primary Care Provider [phone] Todd Cedeno MD Unavailable [phone] Encounter Details Date Type Department Care Team (Latest Contact Info) Description 02/06/2016 Orders Only [facility]G CLINCONV ProviderAlhaji MD [address] [place] [address] Social History Tobacco Use Types Packs/Day Years Used Date Smoking Tobacco: Never Assessed Comments Unknown Sex and Gender Information Value Date Recorded Sex Assigned at Not on file Legal Sex Female 1:32 AM PACKAGE MAKER Gender Identity Female 12/12/2018 8:34 AM CDT [...] on filedocumented in this encounter Care Teams Assistant Professor Surgical Technology Relationship Specialty Start Date End Date Tara Hudson MD [address] [address] PCP - General 12/17/16 11/02/19 Gege Herrera MD [address] [address] PCP - General Family Medicine 11/03/19 10/16/20 Rachel Friend NP [address] [facility] [address] [place] [address] PCP - General Family Medicine 10/17/20 01/09/23 Emily Clements NP [address] [place] [address] PCP - General Nurse Practitioner 01/10/23 11/25/23 Rachel Friend, AIR[address] [place] [address] PCP - General Family Medicine 11/26/23 Todd Cedeno MD [address] [place] [address] Consulting Physician Cardiology 07/15/24 documented as of this encounter
[2024-10-30 19:59] VITALS: BP 84/52; PULSE 100; RESP 17; TEMP 35.8; O2SAT 100
--- OUTSIDE RECORDS SUMMARY | 2024-10-30 20:28 | XMS_ITS | Encounter Summary ---
Author Organization [facility] Facility Care Team Providers Care Timing Adjuster Name Role Phone Tara Hudson MD Primary Care Provider [phone] Gege Herrera MD Primary Care Provider Rachel Friend FILM MOUNTER Primary Care Provider [phone] Emily Clements FILM MOUNTER Primary Care Provider [phone] Rachel Friend FILM MOUNTER Primary Care Provider [phone] Todd Cedeno MD Unavailable [phone] Encounter Details Date Type Department Care Team (Latest Contact Info) Description 02/22/2016 Orders Only [facility]G CLINCONV ProviderAlhaji MD [address] [place] [address] Social History Tobacco Use Types Packs/Day Years Used Date Smoking Tobacco: Never Assessed Comments Unknown Sex and Gender Information Value Date Recorded Sex Assigned at Not on file Legal Sex Female 1:32 AM V BELT BUILDER Gender Identity Female 12/12/2018 8:34 AM CDT [...] CDT Ordered by an unspecified provider. [facility] Provider Final Res ult * PROCEDURE - RESULT (02/22/2016 12:00 AM CDT) Narrative 02/22/2016 12:00 AM CDT Ordered by an unspecified provider. [facility] Provider Final Res ult documented in this encounter Visit Diagnoses Not on filedocumented in this encounter Care Teams Timing Adjuster Relationship Specialty Start Date End Date Tara Hudson MD [address] [address] PCP - General 12/17/16 11/02/19 Gege Herrera MD [address] [address] PCP - General Family Medicine 11/03/19 10/16/20 Rachel Freind NP [address] [address] PCP - General Family Medicine 10/17/20 01/09/23 Emily Clements NP [address] [place] [address] PCP - General Nurse Practitioner 01/10/23 11/25/23 Rachel Friend NP [address] [place] [address] PCP - General Family Medicine 11/26/23 Todd Cedeno MD [address] [place] [address] Consulting Physician Cardiology 07/15/24 documented as of this encounter
--- OUTSIDE RECORDS SUMMARY | 2024-10-30 20:28 | XMS_ITS | Clinical Summary ---
Author Organization [facility] [employer] Address [address] [place] [address] Care Team Providers Care Sales Consultant Name Role Phone Tara Hudson MD Primary Care Provider [phone] Source Comments [facility] [employer],non-owned Affiliates and Associated Physician Practices is amultiple site organization consisting of ambulatory clinics and hospital sitesin [place], [place], [place] and [place]. This disclosure is being madepursuant to the Care Everywhere program and may not contain all information available regarding this patient. Last updated 18.[facility] [employer] Allergies Active Allergy Reactions Criticality Noted Date [...] on file Legal Sex Female 5:57 PM BUFFET ATTENDANT Gender Identity Not on file Sexual Orientation Not on file Last Filed Vital Signs Vital Sign Reading Time Taken Comments Blood Pressure 128/72 05/27/2018 12:26 PM BUFFET ATTENDANT Pulse 80 05/27/2018 12:26 PM BUFFET ATTENDANT Temperature 37 C (98.6 F) 05/27/2018 12:26 PM BUFFET ATTENDANT Respiratory Rate 16 05/27/2018 12:26 PM BUFFET ATTENDANT Oxygen Saturation 100% 05/27/2018 12:26 PM BUFFET ATTENDANT Inhaled Oxygen Concentration - - Weight 52.2 kg (115 lb) 05/27/2018 12:26 PM BUFFET ATTENDANT Height 162.6 cm (5' 4) 05/27/2018 12:26 PM BUFFET ATTENDANT Body Mass Index 19.74 05/27/2018 12:26 PM BUFFET ATTENDANT Plan of Treatment Health Maintenance Due Date [...] topic Insurance MEDICARE MEDICARE MEDICARE Care Teams Sales Consultant Relationship Specialty Start Date End Date Tara Hudson MD [address] [place] [address] [place] [address] PCP - General 12/12/12
--- OUTSIDE RECORDS SUMMARY | 2024-10-30 20:28 | XMS_ITS | Encounter Summary ---
Author Organization [facility] Facility Care Team Providers Care Freight Coordinator Name Role Phone Tara Hudson MD Primary Care Provider [phone] Gege Herrera MD Primary Care Provider Rachel Friend ASSOCIATE PROFESSOR OF THEOLOGY Primary Care Provider [phone] Emily Clements ASSOCIATE PROFESSOR OF THEOLOGY Primary Care Provider [phone] Rachel Friend ASSOCIATE PROFESSOR OF THEOLOGY Primary Care Provider Todd Cedeno MD Unavailable [phone] Encounter Details Date Type Department Care Team (Latest Contact Info) Description 01/04/2016 Orders Only [facility]G CLINCONV ProviderAlhaji MD [address] [place] [address] Social History Tobacco Use Types Packs/Day Years Used Date Smoking Tobacco: Never Assessed Comments Unknown Sex and Gender Information Value Date Recorded Sex Assigned at Not on file Legal Sex Female 1:32 AM WIRE BENDER HAND Gender Identity Female 12/12/2018 8:34 AM CDT [...] AM CDT Ordered by an unspecified provider. [facility] Provider Final Res ult * PROCEDURE - RESULT (01/04/2016 12:00 AM CDT) Narrative 01/04/2016 12:00 AM CDT Ordered by an unspecified provider. [facility] Provider Final Res ult documented in this encounter Visit Diagnoses Not on filedocumented in this encounter Care Teams Freight Coordinator Relationship Specialty Start Date End Date Tara Hudson MD [address] [address] PCP - General 12/17/16 11/02/19 Gege Herrera MD [address] [address] PCP - General Family Medicine 11/03/19 10/16/20 Rachel Friend NP [address] [address] PCP - General Family Medicine 10/17/20 01/09/23 Emily Clements NP [address] [place] [address] PCP - General Nurse Practitioner 01/10/23 11/25/23 Rachel Friend NP [address] [place] [address] PCP - General Family Medicine 11/26/23 Todd Cedeno MD [address] [place] [address] Consulting Physician Cardiology 07/15/24 documented as of this encounter
--- OUTSIDE RECORDS SUMMARY | 2024-10-30 20:28 | XMS_ITS | Encounter Summary ---
Author Organization [facility] Facility Care Team Providers Care Manager Solar Name Role Phone Tara Hudson MD Primary Care Provider [phone] Gege Herrera MD Primary Care Provider Rachel Friend BUSINESS SERVICES CLERK Primary Care Provider [phone] Emily Clements BUSINESS SERVICES CLERK Primary Care Provider [phone] Rachel Friend BUSINESS SERVICES CLERK Primary Care Provider [phone] Todd Cedeno MD Unavailable [phone] Encounter Details Date Type Department Care Team (Latest Contact Info) Description 11/25/2017 Orders Only MMG CLINCONV ProviderAlhaji MD [address] [place] [address] Social History Tobacco Use Types Packs/Day Years Used Date Smoking Tobacco: Never Assessed Comments Unknown Sex and Gender Information Value Date Recorded Sex Assigned at Not on file Legal Sex Female 1:32 AM AIRPLANE 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 TANK 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 Gender Identity Female 12/12/2018 8:34 AM CDT [...] on filedocumented in this encounter Care Teams Manager Solar Relationship Specialty Start Date End Date Tara Hudson MD [address] [facility] [address] [place] [address] PCP - General 12/17/16 11/02/19 Gege Herrera MD [address] [address] PCP - General Family Medicine 11/03/19 10/16/20 Rachel Friend NP [address] [facility] [address] [place] [address] PCP - General Family Medicine 10/17/20 01/09/23 Emily Clements NP [address] [place] [address] PCP - General Nurse Practitioner 01/10/23 11/25/23 Rachel Friend NP [address] [place] [address] PCP - General Family Medicine 11/26/23 Todd Cedeno MD [address] [place] [address] Consulting Physician Cardiology 07/15/24 documented as of this encounter
--- OUTSIDE RECORDS SUMMARY | 2024-10-30 20:28 | XMS_ITS | Encounter Summary ---
Author Organization [facility] Address [address] [place] [address] Care Team Providers Care Hand Laster Name Role Phone Rachel Friend NP Primary Care Provider [phone] Todd Cedeno MD Unavailable Encounter Details Date Type Department Care Team (Late st Contact Info) Description 10/30/2024 Telephone [facility] [address] [facility] [address] [place] [id number] Piero Triana MD [address] [facility] [address], [place] [address] Social History Tobacco Use Types Packs/Day Years Used Date Smoking Tobacco: Never Cigarettes Smokeless Tobacco: Never Alcohol Use Standard Drinks/Week Comments Yes 0 (1 standard drink = 0.6 oz pur e alcohol) [facility] Utilities Answer Date Recorded In the past [...] week 07/15/2024 How often do you attend [facility] or restorationism services? Never 07/15/2024 Do you belong to any clubs o r organizations such as mu-ism groups, unions, fraternal or athletic groups, or [...] any time in the past 12 m [facility], were you homeless or living in a retirement (including now)? No 07/15/2024 Personal Safety Answer Date Recorded Have you ever been in or are you currently in a harmful physical or emotional relationship or is someone making you feel afraid or unsafe? Denies 07/14/2024 Comments No Sex and Gender Information Value Date Recorded Sex Assigned at Not on file Legal Sex Female 1:32 AM TELEPHONE MAINTENANCE MECHANIC Gender Identity Female 12/12/2018 8:34 AM CDT [...] on filedocumented in this encounter Care Teams Hand Laster Relationship Specialty Start Date End Date Rachel Friend NP [address] [place] [address] PCP - General Family Medicine 11/26/23 Todd Cedeno MD [address] [place] [address] Consulting Physician Cardiology 07/15/24 documented as of this encounter
--- OUTSIDE RECORDS SUMMARY | 2024-10-30 20:28 | XMS_ITS | Encounter Summary ---
Author Organization [facility] Facility Care Team Providers Care Life Skills Coach Name Role Phone Tara Hudson MD Primary Care Provider [phone] Gege Herrera MD Primary Care Provider Rachel Friend DIRECTOR MONEY Primary Care Provider [phone] Emily Clements DIRECTOR MONEY Primary Care Provider [phone] Rachel Friend DIRECTOR MONEY Primary Care Provider [phone] Todd Cedeno MD Unavailable Encounter Details Date Type Department Care Team (Latest Contact Info) Description 02/06/2016 Orders Only [facility]G CLINCONV ProviderAlhaji MD [address] [place] [address] Social History Tobacco Use Types Packs/Day Years Used Date Smoking Tobacco: Never Assessed Comments Unknown Sex and Gender Information Value Date Recorded Sex Assigned at Not on file Legal Sex Female 1:32 AM FISHER TERRAPIN Gender Identity Female 12/12/2018 8:34 AM CDT [...] on filedocumented in this encounter Care Teams Life Skills Coach Relationship Specialty Start Date End Date Tara Hudson MD [address] [address] PCP - General 12/17/16 11/02/19 Gege Herrera MD [address] [address] PCP - General Family Medicine 11/03/19 10/16/20 Rachel Friend NP [address] [facility] [address] [place] [address] PCP - General Family Medicine 10/17/20 01/09/23 Emily Clements NP [address] [place] [address] PCP - General Nurse Practitioner 01/10/23 11/25/23 Rachel Friend, AIRAM [address] [place] [address] PCP - General Family Medicine 11/26/23 Todd Cedeno MD [address] [place] [address] Consulting Physician Cardiology 07/15/24 documented as of this encounter
--- OUTSIDE RECORDS SUMMARY | 2024-10-30 20:28 | XMS_ITS | Encounter Summary ---
Author Organization [facility] Facility Care Team Providers Care Trolley Wire Installer Name Role Phone Tara Hudson MD Primary Care Provider [phone] Gege Herrera MD Primary Care Provider Rachel Friend SQUEEGEER AND FORMER Primary Care Provider [phone] Emily Clements SQUEEGEER AND FORMER Primary Care Provider [phone] Rachel Friend SQUEEGEER AND FORMER Primary Care Provider [phone] Todd Cedeno MD Unavailable [phone] Encounter Details Date Type Department Care Team (Latest Contact Info) Description 12/02/2017 Orders Only [facility] CLINCONV ProviderAlhaji MD [address] [place] [address] Social History Tobacco Use Types Packs/Day Years Used Date Smoking Tobacco: Never Assessed Comments Unknown Sex and Gender Information Value Date Recorded Sex Assigned at Not on file Legal Sex Female 1:32 AM AGRICULTURAL ENGINEERING TECHNICIAN Gender Identity Female 12/12/2018 8:34 AM CDT [...] on filedocumented in this encounter Care Teams Trolley Wire Installer Relationship Specialty Start Date End Date Tara Hudson MD [address] [facility] [address] [place] [address] PCP - General 12/17/16 11/02/19 Gege Herrera MD [address] [address] PCP - General Family Medicine 11/03/19 10/16/20 Rachel Friend NP [address] [facility] [address] [place] [address] PCP - General Family Medicine 10/17/20 01/09/23 Emily Clements NP [address] [place] [address] PCP - General Nurse Practitioner 01/10/23 11/25/23 Rachel Friend, [address] [place] [address] PCP - General Family Medicine 11/26/23 Todd Cedeno MD [address] [place] [address] Consulting Physician Cardiology 07/15/24 documented as of this encounter
--- OUTSIDE RECORDS SUMMARY | 2024-10-30 20:28 | XMS_ITS | Encounter Summary ---
Author Organization [facility] Facility Care Team Providers Care Employee Communications Manager Name Role Phone Tara Hudson MD Primary Care Provider [phone] Gege Herrera MD Primary Care Provider Rachel Friend SADDLE MECHANIC Primary Care Provider [phone] Emily Clements SADDLE MECHANIC Primary Care Provider [phone] Rachel Friend SADDLE MECHANIC Primary Care Provider Todd Cedeno MD Unavailable [phone] Encounter Details Date Type Department Care Team (Latest Contact Info) Description 03/05/2016 Orders Only [facility] CLINCONV ProviderAlhaji MD [address] [place] [address] Social History Tobacco Use Types Packs/Day Years Used Date Smoking Tobacco: Never Assessed Comments Unknown Sex and Gender Information Value Date Recorded Sex Assigned at Not on file Legal Sex Female 1:32 AM CRYPTOLOGICAL TECHNICIAN Gender Identity Female 12/12/2018 8:34 AM CDT Sexual Orientation Straight 12/12/2018 8: 34 AM CDT documented as of this encounter Plan of Treatment Not on file documented as of this encounter Procedures Procedure Name Priority Date/Time Associated Diagnosis Comments PROCEDURE - RESULT 03/05/2016 12 :00 AM CRYPTOLOGICAL TECHNICIAN PROCEDURE - RESULT 03/05/2016 12 :00 AM CRYPTOLOGICAL TECHNICIAN documented in this encounter Results * PROCEDURE - RESULT (03/05/2016 12:00 AM CRYPTOLOGICAL TECHNICIAN) Narrative 03/05/2016 12:00 AM CRYPTOLOGICAL TECHNICIAN Ordered by an unspecified provider. us Historical Provider Final Res ult * PROCEDURE - RESULT (03/05/2016 12:00 AM CRYPTOLOGICAL TECHNICIAN) Narrative 03/05/2016 12:00 AM CRYPTOLOGICAL TECHNICIAN Ordered by an unspecified provider. us Historical Provider Final Res ult documented in this encounter Visit Diagnoses Not on filedocumented in this encounter Care Teams Employee Communications Manager Relationship Specialty Start Date End Date Tara Hudson MD [address] [address] PCP - General 12/17/16 11/02/19 Gege Herrera MD [address] [address] PCP - General Family Medicine 11/03/19 10/16/20 Rachel Friend NP [address] [address] PCP - General Family Medicine 10/17/20 01/09/23 Emily Clements NP [address] [place] [address] PCP - General Nurse Practitioner 01/10/23 11/25/23 Rachel Friend, AIRAM [address] [place] [address] PCP - General Family Medicine 11/26/23 Todd Cedeno MD [address] [place] [address] Consulting Physician Cardiology 07/15/24 documented as of this encounter
--- OUTSIDE RECORDS SUMMARY | 2024-10-30 20:29 | XMS_ITS | Clinical Summary ---
Author Organization [facility] Address [address] [place] [address] Care Team Providers Care Enrollment Advisor Name Role Phone Rachel Friend Ann 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 Not on file Not on file Not on file Last Filed Vital Signs Vital Sign Reading Time Taken Comments Blood Pressure 148/89 05/09/2022 11:53 AM A/C TECHNICIAN Pulse 93 05/09/2022 11:53 AM A/C TECHNICIAN Temperature 36.6 C (97.8 F) 05/09/2022 11:53 AM A/C TECHNICIAN Respiratory Rate 18 04/20/2022 8:01 AM A/C TECHNICIAN Oxygen Saturation 99% 04/20/2022 8:01 AM A/C TECHNICIAN Inhaled Oxygen Concentration - - Weight 51.9 kg (114 lb 6.4 oz) 05/09/2022 11:53 AM A/C TECHNICIAN Height 160 cm (5' 3) 05/09/2022 11:53 AM A/C TECHNICIAN Body Mass Index 20.27 05/09/2022 11:53 AM A/C TECHNICIAN Plan of Treatment Health Maintenance Due [...] age to complete this topic Insurance MEDICARE [facility] Care Teams Enrollment Advisor Relationship Specialty Start Date End Date Rachel Friend FNP PCP - General Nurse Practitioner Family 07/20/21
--- OUTSIDE RECORDS SUMMARY | 2024-10-30 20:29 | XMS_ITS | Clinical Summary ---
Author Organization [facility] [id number] [facility] Address [address] [place] [address] Care Team Providers Care Assistant Executive Housekeeper Name Role Phone Emily Tejada MD Primary [...] Comments Blood Pressure 132/82 05/31/2022 11:05 AM LONG TERM ACUTE CARE REGISTERED NURSE Pulse 100 12/22/2021 12:26 PM CDT Temperature 36.7 C (98.1 F) 01/02/2022 10:54 AM CDT Respiratory Rate 16 01/02/2022 10:54 AM CDT Oxygen Saturation 100% 12/22/2021 12:26 PM CDT Inhaled Oxygen Concentration - - Weight 52.7 kg (116 lb 3.2 oz) 02/05/2023 11:35 AM CDT Height 160 cm (5' 3) 05/31/2022 10:59 AM LONG TERM ACUTE CARE REGISTERED NURSE Body Mass Index 20.58 05/31/2022 10:59 AM LONG TERM ACUTE CARE REGISTERED NURSE Plan of Treatment Health Maintenance [...] 01/20/2015, 12/21/2009 Medical Devices Implanted Type Area Cigar Tobacco Processing Supervisor Device Identifier Shelf Expiration Date Model / Serial / Lot Infuse Protein Kit Lg Ii [id number] - Sna Implanted:Qty: 1 on 12/19/2021 by Biju Littlejohn MD at [facility] N/A: Spine Lumbar MEDTRONIC- SOFAMOR DANEK 03/21/2023 [id number] / NA / [id number] Description:CHECKED BY LG ON 12.20.21 REQ#[id number] Stimulan Caso4 Kt 10ml 620-010 - [id number] Implanted:Qty: 1 on 12/19/2021 by Biju Littlejohn MD at [facility] BIOCOMPOSITES 10/19/2024 620-010 / / [id number] Description:CHECKED BY LG ON 12.20.21 REQ#[id number] Spacer Catalyft Pl 7mm Xpndble Strt [id number] - [id number] Implanted:Qty: 1 on 12/19/2021 by Biju Littlejohn MD at [facility] N/A: Spine Lumbar MEDTRONIC- SOFAMOR DANEK 10/30/2029 [id number] / / [id number] Hemostatic Surgiflo 8ml W/ Thrombin 2994 - Sn/A Implanted:Qty: 1 on 12/19/2021 by Biju Littlejohn MD at [facility] Hemostatic N/A: Spine Lumbar J&J- ETHICON INC 01/19/2023 2994 / N/A / [id number] Hemostatic Surgiflo 8ml W/ Thrombin 2994 - [id number] Implanted:Qty: 1 on 12/19/2021 by Biju Littlejohn MD at [facility] Hemostatic N/A: Spine Lumbar J&J- ETHICON INC 09/19/2022 2994 / / [id number] Cassandra Spacer 4406-0028-N Tas 7 Dg Lg 10mm Implanted:Qty: 1 on 12/19/2021 by Biju Littlejohn MD at [facility] Other N/A: Spine Lumbar MEDTRONIC- SOFAMOR DANEK 07/04/2024 [id number] / / [id number] Description:1X ADD Cassandra Spacer 8426-8113-N Tas 7dg Std 10mm Implanted:Qty: 1 on 12/19/2021 by Biju Littlejohn MD at [facility] Other N/A: Spine Lumbar MEDTRONIC- SOFAMOR DANEK 3787-1601-N / / [id number] Description:1X ADD Terence Cp4 Str Ti 5.6z701uv [id number] - [id number] Implanted:Qty: 1 on 12/19/2021 by Biju Littlejonh MD at [facility] Terence N/A: Spine Lumbar MEDTRONIC- SOFAMOR DANEK [id number] / / Description:load no: 227 227 05 sterilized: [id number] Screw Cdh 7.5x35mm 5.5/6.0 Mas Cc [id number] - [id number] Implanted:Qty: 3 on 12/19/2021 by Biju Littlejohn MD at [facility] Screw N/A: Spine Lumbar MEDTRONIC- SOFAMOR DANEK [id number] / / Description:load no: 227 227 05 sterilized: [id number] Screw Cdh 7.5x40mm 5.5/6.0 Mas Cc [id number] - [id number] Implanted:Qty: 2 on 12/19/2021 by Biju Littlejohn MD at [facility] N/A: Spine Lumbar MEDTRONIC- SOFAMOR DANEK [id number] / / Description:load no: 227 227 05 sterilized: [id number] Screw [id number] 5.5 Mas 7.5x25cc Implanted:Qty: 1 on 12/19/2021 by Biju Littlejohn MD at [facility] N/A: Spine Lumbar MEDTRONIC- SOFAMOR DANEK 11/10/2027 [id number] / / [id number] Description:1X ADD Screw [id number] Bs Cnmas 8.5x80 T/C Implanted:Qty: 2 on 12/19/2021 by Biju Littlejohn MD at [facility] N/A: Spine Lumbar MED[employer]- SOFAMOR DANEK 12/19/2021 [id number] / / [id number] Description:1X ADD Screw Endoskeleton 5.5x25mm Tas 9568-8225 - [id number] Implanted:Qty: 3 on 12/19/2021 by Biju Littlejohn MD at [facility] N/A: Spine Lumbar MEDTRONIC- SOFAMOR DANEK 7214-4544 / / Description:load [id number] da te: 12/19/21 YANCI REQ#[id number] Screw Solera 5.5/6.0 Breakoff [id number] - [id number] Implanted:Qty: 12 on 12/19/2021 by Biju Littlejohn MD at [facility] N/A: Spine Lumbar MEDTRONIC- SOFAMOR DANEK [id number] / / Description:load no: 227 227 05 sterilized: [id number] Screw Cdh 5.5x45mm 5.5/6.0 Mas Cc [id number] - [id number] Implanted:Qty: 4 on 12/19/2021 by Biju Littlejohn MD at [facility] N/A: Spine Lumbar MEDTRONIC- SOFAMOR DANEK [id number] / / Description:load no: 227 227 05 sterilized: [id number] Josh Dbm Dbf 6ml [id number] - [id number] Implanted:Qty: 1 on 12/19/2021 by Biju Littlejohn MD at [facility] N/A: Spine Lumbar MEDTRONIC- SOFAMOR DANEK 11/10/2023 [id number] / [id number] / Description:CHECKED BY LG ON 12.20.21 REQ#[id number] Josh Dbm Dbf 6ml I08669 - [id number] Implanted:Qty: 1 on 12/19/2021 by Biju Littlejohn MD at [facility] N/A: Spine Lumbar MEDTRONIC- SOFAMOR DANEK 11/10/2023 [id number] / [id number] / Description:CHECKED BY LG ON 12.20.21 REQ#[id number] Cassandra Spacer 7224-8230-N Tas 12d Std 12mm Implanted:Qty: 1 on 12/19/2021 by Biju Littlejohn MD at [facility] N/A: Spine Lumbar MEDTRON[employer]- SOFAMOR DANEK 7444-7825-N / / [id number] Description:1X ADD Insurance MEDICARE PART A AND B [facility] Advance Directives For more information, please contact: [phone] Documents on File Type Date Recorded Patient Warp Coiler Expl anation Advance Directive Living Will 02/04/2023 10:08 AM Advance Directive POA 05/29/2022 12:52 PM Advance Directive POA 10/18/2021 10:07 AM * Full Code (Latest Code Status on File) Date Activated Date Inactivated Comments 12/19/2021 7:20 PM 12/22/2021 4:17 PM * Full Code Date Activated Date Inactivated Comments 12/19/2021 3:08 PM 12/19/2021 7:20 PM Care Teams Assistant Executive Housekeeper Relationship Specialty Start Date End Date Emily Tejada MD PCP - General Family Practice 01/14/20 Jade Bean Cardiovascular Disease 10/10/21
--- OUTSIDE RECORDS SUMMARY | 2024-10-30 20:29 | XMS_ITS | Referral Summary ---
Author Organization [facility] Address [address] [place] [address] Care Team Providers Care Quality Assurance Technician Name Role Phone Rachel Friend NP Primary Care Provider Todd Cedeno MD Unavailable Encounters Date Type Department Care Team Description 10/30/2024 Telephone Ar[facility] [address] [facility] [address], [place] [address] Piero Triana MD 10/30/2024 11:00 AM CDT Office Visit [facility] Medical [facility] Cardiology [address] [place] [phone] Rosa Cotto NP Paroxysmal atrial fibrillation (HCC) (Primary Dx); CAD in [place] artery 10/19/2024 Telephone [facility] Medical [facility] Cardiology [address] [place] [phone] Todd Cedeno MD 10/19/2024 7:45 AM CDT Ancillary Procedure [facility] Cardiology [address], [place] [address] Paroxysmal atrial fibrillation (HCC) (Primary Dx); Palpitations; Status post placement of implantable loop recorder; Syncope and collapse; SVT (supraventricular tachycardia) 10/16/[address] [facility] Cardiology [address] [place] [address] [place] [phone] Todd Cedeno MD 09/07/[address] [facility] Orthopedics and Sports Medicine [address] [place] [phone] Dallas Caruso MD 09/07/2024 7:15 AM CDT Ancillary Procedure [facility] Cardiology [address] [place] [address] [place] [phone] Status post placement of implantable loop recorder (Primary Dx); Syncope and collapse; SVT (supraventricular tachycardia); Palpitations 08/27/2024 8:00 AM CDT [address] [facility] Cardiology [address] [place] [address] [place] [phone] Palpitations; Status post placement of implantable loop recorder; Syncope and collapse; SVT (supraventricular tachycardia) 08/27/[address] [facility] Cardiology [address] [place] [address] [place] [phone] Todd Cedeno MD 08/26/[address] [facility] Cardiology [address] [place] [address] [place] [phone] Rosa Cotto NP 08/07/2024 11:03 AM CDT - 08/07/2024 11:59 PM CDT Hospital Encounter [facility] Di[facility] Imaging [address] [place] [address] Left hip pain; Left knee pain, unspecified chronicity Discharge Disposition: Discharge to home or self care 08/07/2024 11:15 AM CDT Office Visit [facility] [address] [place] [address] [place] [phone] Dallas Caruso MD Trochanteric bursitis of left [...] Diagnosed Date Coronary artery disease invo lving [place] coronary artery of [place] heart with angina pectoris 07/14/2024 Gastroesophageal reflux disease without esophagi tis 07/14/2024 Anxiety 07/14/2024 CAD in [place] artery 07/14/2024 Angina pectoris, unstable 07/14/2024 SVT (supraventricular tachycardia) 04/18/2023 Atypical chest pain 04/18/2023 Closed fracture of mandible 01/04/2023 Fall, initial encounter 12/03/2022 Open fracture of mandible 12/03/2022 Status post placement of implantable loop record er 07/17/2022 Overview (07/17/2022): Medtronic LNQ22 Loop Recorder. Dx; Syncope, Tachycardia, Palpitations. DOI 06/15/2022-Fleissner. Mirza. [facility] remote monitoring. Visit for wound check [...] drink = 0.6 oz pur e alcohol) [facility] Utilities Answer Date Recorded In the past 12 months has e electric, gas, oil, or water [employer] threatened to shut off services in your home? No 07/15/2024 Social Connection and Isolation Panel [NHANES] A nswer Date Recorded Frequency of Communication with Friends and Fami ly Not on file 07/15/2024 How often do you get togethe r with friends or relatives? Three times a week 07/15/2024 How often do you attend chur ch or mosque services? 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 Gender Identity Female 12/12/2018 8:34 AM [...] on file Medical Devices Implanted Type Area Loss Prevention/Safety District Manager Device Identifier Shelf Expiration Date Model / Serial / Lot Implantable Loop Recorder Implantable Loop Recorder Chest Cast Vascular System Closure Repair Femoral Artery Suture Mediated Perclose Prostyle 03385-60 - S0 - [id number] Implanted:Qty: 1 on 07/14/2024 by Xu Bhardwaj MD at [facility] Other - see comments Cast Vascular 03/21/2026 72812-34 / 0 / [id number] Medtronic Inc Infuse Kit Xs Graft Bone Rhbmp-2 Bovine Collagen Lumbar Taper 4038607 - [id number] Implanted:Qty: 1 on 12/05/2022 by Ion Vergara MD at [facility] N/A: Chin Medtronic Inc [id number] 04/21/2024 [id number] / / [id number] [employer] Vitoss Void Filler Foam Pack Bioactive Substitute 2.5ml Bone 7842-2500 - [id number] Implanted:Qty: 1 on 12/05/2022 by Ion Vergara MD at [facility] N/A: Chin [employer] [id number] 06/19/2023 2647-1805 / / [id number] CTS Media Synergy Xd Monorail 2.75mm 38mm 144cm Delivery System 1 Access [id number] - S0 - [id number] Implanted:Qty: 1 on 07/14/2024 by Xu Bhardwaj MD at [facility] [employer] Media 11/27/2025 [id number] / 0 / [id number] Explanted Type Area Loss Prevention/Safety District Manager Device Identifier Shelf Expiration Date Model / Serial / Lot [place] Craniomaxillofacial Leibinger Philo 2 2mm 5mm Self Tap Cross Pin Maxillofacial 50- - [id number] Implanted:Qty: 8 on 12/05/2022 by Ion Vergara MD at [facility] Explanted:Qty: 8 on 01/10/2023 at [facility] Mandible Elvia Craniomaxillofacial 50- / / Elvia Craniomaxillofacial Leibinger Philo 2 Smart Lock 9 Hole Mandible Small Plate Bone [id number] - [id number] Implanted:Qty: 2 on 12/05/2022 by Ion Vergara MD at [facility] Explanted:Qty: 2 on 01/10/2023 at [facility] Mandible Elvia Craniomaxillofacial [id number] / / [place] Craniomaxillofacial Leibinger Philo 2 Smartlock 2mm 8mm Self Drill Lock 50-26333 - [id number] Implanted:Qty: 10 on 12/05/2022 by Ion Vergara MD at [facility] Explanted:Qty: 10 on 01/10/2023 at [facility] Mandible Elvia Craniomaxillofacial [id number] / / Elvia Craniomaxillofacial 16 Hole Maxillofacial 1.5mm Mini Plate Bone 92-97585 - [id number] Implanted:Qty: 1 on 12/05/2022 by Ion Vergara MD at [facility] Explanted:Qty: 1 on 01/10/2023 by Ion Vergara MD at [facility] [place] Mandible Elvia Craniomaxillofacial [id number] / / Elvia Craniomaxillofacial Leibinger Philo 2 2mm 8mm Lock Cross Pin Mandibular Screw 3494930 - [id number] Implanted:Qty: 2 on 12/05/2022 by Ion Vergara MD at [facility] Explanted:Qty: 2 on 01/10/2023 at [facility] [place] Mandible Elvia Craniomaxillofacial [id number] / / Elvia Craniomaxillofacial Leibinger Philo 2 2mm 10mm Lock Cross Pin Maxillofacial Screw 7772641 - [id number] Implanted:Qty: 2 on 12/05/2022 by Ion Vergara MD at [facility] Explanted:Qty: 2 on 01/10/2023 at [facility] [place] Mandible Elvia Craniomaxillofacial [id number] / / Elvia Craniomaxillofacial Leibinger Philo 2 2mm 12mm Lock Cross Pin Maxillofacial Screw 4499044 - [id number] Implanted:Qty: 2 on 12/05/2022 by Ion Vergara MD at [facility] Explanted:Qty: 2 on 01/10/2023 at [facility] [place] Mandible [place] Craniomaxillofacial [id number] / / [place] Craniomaxillofacial Plate Mini 8mm Mndb [address] Condensed 2mm Screw Bone Ti [id number] - [id number] Implanted:Qty: 1 on 12/05/2022 by Ion Vergara MD at [facility] Explanted:Qty: 1 on 01/10/2023 at [facility] [place] Mandible Elvia Craniomaxillofacial [id number] / / Procedures Procedure Name Priority Date/Time [...] recorder Syncope and collapse SVT (supraventricular tachycardia) AR ARTHROCENTESIS ASPIR&/INJ MAJOR JT/BURSA W/O US Routine 08/07/2024 11:15 AM CDT Primary osteoarthritis of both knees AR ARTHROCENTESIS ASPIR&/INJ MAJOR JT/BURSA W/O US [...] Modality Other Narrative 10/26/2024 7:59 AM CDT Jebbittronic LNQ22 Loop Recorder. Dx; Syncope, Tachycardia, Palpitations, [...] Modality Other Narrative 10/26/2024 7:59 AM CDT Damballa LNQ22 Loop Recorder. Dx; Syncope, Tachycardia, Palpitations, [...] Todd Cedeno MD CV CARDIAC SERVICES PROCE [facility] Final Result * AR ARTHROCENTESIS ASPIR&/INJ MAJOR JT/BURSA W/O US (08/07/2024 [...] AR ARTHROCENTESIS ASPIR&/INJ MAJOR JT/BURSA W/O US (08/07/2024 [...] signed by Dallas Caruso T: Report ID: [id number] Reading Location: [place] [address] Procedure Note Dallas Caruso MD - 08/07/2024 [...] signed by Dallas Caruso T: Report ID: [id number] Reading Location: [place] [address] us Dallas Caruso MD IMG XR PROCEDURES [...] signed by Dallas Caruso T: Report ID: [id number] Reading Location: [place] [address] Procedure Note Dallas Caruso MD - 08/07/2024 [...] signed by Dallas METZGER T: Report ID: [id number] Reading Location: [place] [address] us Dallas Caruso MD IMG XR PROCEDURES Final Resu lt from Last 3 Months Insurance MEDICARE [facility] MEDICARE [facility] MEDICARE [employer] MEDICARE SUPPLEMENT MEDICARE [facility] Advance Directives For more information, please contact: [phone] Documents on File Type Date Recorded Patient Assembler Cards And Announcements Expl anation ADVANCE DIRECTIVE 08/21/2012 12:00 AM B[place] WILL ADVANCE DIRECTIVE 08/21/2012 12:00 AM POWER OF RENEWABLE ENERGY DIVISION MANAGER FINANCIAL/MEDICAL * Full Code (Latest Code Status on File) Date Activated Date Inactivated Comments 07/14/2024 12:14 PM 07/15/2024 6:47 PM * Full Code Date Activated Date Inactivated Comments 12/04/2022 12:40 AM 12/07/2022 8:03 PM Care Teams Quality Assurance Technician Relationship Specialty Start Date End Date Rachel Friend NP [address] [place] [address] PCP - General Family Medicine 11/26/23 Todd Cedeno MD [address] [place] [address] Consulting Physician Cardiology 07/15/24
--- OUTSIDE RECORDS SUMMARY | 2024-10-30 20:29 | XMS_ITS | Encounter Summary ---
Author Organization [facility] Healthcare Address [address] [place] [address] Care Team Providers Care Head Bone Grinder Name Role Phone Rachel Friend NP Primary Care Provider [phone] Todd Cedeno MD Unavailable [phone] Reason for Visit * Reason Comments Follow-up Discuss ablation Coronary Artery Disease SVT Encounter Details Date Type Department Care Team (Late st Contact Info) Description 10/30/2024 11:00 AM CDT Office Visit [facility] Medical Group Cardiology [address] [place] [phone] Rosa Cotto NP [address] [place], [place] [id number] Paroxysmal atrial fibrillation (HCC) (Primary Dx); CAD in [place] artery Social History Tobacco Use Types Packs/Day Years Used Date Smoking Tobacco: Never Cigarettes Smokeless Tobacco: Never Alcohol Use Standard Drinks/Week Comments Yes 0 (1 standard drink = 0.6 oz pur e alcohol) [facility] Utilities Answer Date Recorded In [...] often do you attend chur ch or taoist services? Never 07/15/2024 Do you belong to any clubs o r organizations such as yarsani groups, unions, fraternal or athletic groups, or [...] any time in the past 12 m [facility], were you homeless or living in a senior living (including now)? No 07/15/2024 Personal Safety Answer Date Recorded Have you ever been in or are you currently in a harmful physical or emotional relationship or is someone making you feel afraid or unsafe? 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 10/17/2020 Initial Office Consultation with Dr. Bean: [...] Evaluated in [address] Henry at [facility] for palpitations, had a normal echo and stress test. Not able to work hard or exercise 2nd chronic back pain. Allergy to BB for HTN, can't recall name, had petechia on legs to knees, went away after stopping the BB. Gong for vacation in [place], leaving October 25, back around November 09.. [...] pain which is nonexertional Hospital follow-up with [facility] 07/28/2024: After her last office visit she had a stress test which was abnormal. This led to a cardiac catheterization by Dr. 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 10/30/2024 follow-up with [facility] - Katina Polina comes to the office [...] CBC with auto differential; Future CAD in [place] artery She does have symptomatic occurrences of [...] needed. Rosa Cotto ANP- Nurse Practitioner with [facility] This note is dictated and transcribed using [employer]. Director Operations variancesmay occur. Despite proofreading, typographical errors may [...] fibrillation (HCC)- Primary Atrial fibrillation CAD in [place] artery documented in this encounter Care Teams Head Bone Grinder Relationship Specialty Start Date End Date Rachel Friend NP [address] [place] [address] PCP - General Family Medicine 11/26/23 Todd Cedeno MD [address], [address] [place] [address] Consulting Physician Cardiology 07/15/24 documented as of this encounter
--- OUTSIDE RECORDS SUMMARY | 2024-10-30 20:29 | XMS_ITS | Clinical Summary ---
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 Dx; Syncope, Tachycardia, Palpitations. DOI 06/15/2022-Fleissner. Mirza. [employer] mobile marketing remote monitoring. Visit for wound check 06/22/2022 [...] Description 10/30/2024 11:00 AM CDT Office Visit [facility] Cardiology [address] [place] [address] [place] [phone] Rosa Cotto NP Paroxysmal atrial fibrillation (HCC) (Primary Dx); CAD in [place] artery 10/30/2024 Telephone Arr[facility]ia [facility] [address] [facility] [address] [address] Piero Triana MD 10/19/2024 7:45 AM CDT [address] Procedure [facility] Cardiology [address] [place] [address] [place] [phone] Paroxysmal atrial fibrillation (HCC) (Primary Dx); Palpitations; Status post placement of implantable loop recorder; Syncope and collapse; SVT (supraventricular tachycardia) 10/19/[address] [facility] Cardiology [address] [place] [address] [place] [phone] Todd Cedeno MD 10/16/[address] [facility] Cardiology [address] [place] [address] [place] [phone] Todd Cedeno MD 09/07/2024 7:15 AM CDT Ancillary Procedure [facility] Cardiology [address] [place] [address] [place] [phone] Status post placement of implantable loop recorder (Primary Dx); Syncope and collapse; SVT (supraventricular tachycardia); Palpitations 09/07/[address] [facility] Orthopedics and Sports Medicine [facility] [address] [place] [phone] Dallas Caruso MD 08/27/2024 8:00 AM CDT Ancillary Procedure [facility] Cardiology [address] [place] [phone] Palpitations; Status post placement of implantable loop recorder; Syncope and collapse; SVT (supraventricular tachycardia) 08/27/[address] [facility] Cardiology [address] [place] [address] Todd Cedeno MD 08/26/[address] [facility] Cardiology [address] [place] [address] Rosa Cotto NP 08/07/2024 11:15 AM CDT Office Visit [facility] Orthopedics and Sports Medicine [facility] [address] [place] [phone] Dallas Caruso MD Trochanteric bursitis of left hip; Primary osteoarthritis of both knees 08/07/2024 11:03 AM CDT - 08/07/2024 11:59 PM CDT Hospital Encounter [facility] [address] [place] [address] Left hip pain; Left knee pain, unspecified [...] Procedure: PCI BALJEET MAJOR CORONARY C9600 - [id number]; Surgeon: Xu Bhardwaj MD; Location: [facility] CARDIAC MORTGAGE COORDINATOR; Service: Cardiovascular; Laterality: N/A; Medical devices from this surgery are in the Medical Devices section. CARDIAC CATHETERIZATION 07/14/2024 N/A Procedure: Percutaneous Coronary Lithotripsy W/ PCI (+) [id number]; Surgeon: Xu Bhardwaj MD; Location: [facility] CARDIAC MORTGAGE COORDINATOR; Service: Cardiovascular; Laterality: N/A; Medical devices from this surgery are in the Medical Devices section. 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 Gender Identity Female 12/12/2018 8:34 AM [...] 019, 02/10/2018 Medical Devices Implanted Type Area Senior Genetic Counselor Device Identifier Shelf Expiration Date Model / Serial / Lot Implantable Loop Recorder Implantable Loop Recorder Chest Cast Vascular System Closure Repair Femoral Artery Suture Mediated Perclose Prostyle 83715-94 - S0 - [id number] Implanted:Qty: 1 on 07/14/2024 by Xu Bhardwaj MD at [facility] Other - see comments Cast Vascular 03/21/2026 15525-04 / 0 / [id number] Medtronic Inc Infuse Kit Xs Graft Bone Rhbmp-2 Bovine Collagen Lumbar Taper [id number] - [id number] Implanted:Qty: 1 on 12/05/2022 by Ion Vergara MD at [facility] N/A: Ronald Medtronic Inc [id number] 04/21/2024 [id number] / / [id number] C [employer] Vitoss Void Filler Foam Pack Bioactive Substitute 2.5ml Bone 6531-0600 - [id number] Implanted:Qty: 1 on 12/05/2022 by Ion Vergara MD at [facility] N/A: Ronald [employer] [id number] 06/19/20239367-7306 / / [id number] SurfAir Synergy Xd Monorail 2.75mm 38mm 144cm Delivery System 1 Access [id number] - S0 - [id number] Implanted:Qty: 1 on 07/14/2024 by Xu Bhardwaj MD at [facility] SurfAir 11/27/2025 [id number] / 0 / [id number] Explanted Type Area Senior Genetic Counselor Device Identifier Shelf Expiration Date Model / Serial / Lot Elvia Craniomaxillofacial Leibinger Mcrae [place] 2 2mm 5mm Self Tap Cross Pin Maxillofacial [id number] - [id number] Implanted:Qty: 8 on 12/05/2022 by Ion Vergara MD at [facility] Explanted:Qty: 8 on 01/10/2023 at [facility] [place] Mandible Elvia Craniomaxillofacial [id number] / / [place] Craniomaxillofacial Leibinger Mcrae [place] 2 Smart Lock 9 Hole Mandible Small Plate Bone [id number] - [id number] Implanted:Qty: 2 on 12/05/2022 by Ion Vergara MD at [facility] Explanted:Qty: 2 on 01/10/2023 at [facility] Mandible [place] Craniomaxillofacial [id number] / / [place] Craniomaxillofacial Leibinger Mcrae [place] 2 Smartlock 2mm 8mm Self Drill Lock 50 - [id number] Implanted:Qty: 10 on 12/05/2022 by Ion Vergara MD at [facility] Explanted:Qty: 10 on 01/10/2023 at [facility] [place] Mandible [place] Craniomaxillofacial 50- / / [place] Craniomaxillofacial 16 Hole Maxillofacial 1.5mm Mini Plate Bone [id number] - [id number] Implanted:Qty: 1 on 12/05/2022 by Ion Vergara MD at [facility] Explanted:Qty: 1 on 01/10/2023 by Ion Vergara MD at [facility] [place] Mandible [place] Craniomaxillofacial [id number] / / Elvia Craniomaxillofacial Leibinger Mcrae [place] 2 2mm 8mm Lock Cross Pin Mandibular Screw [id number] - [id number] Implanted:Qty: 2 on 12/05/2022 by Ion Vergara MD at [facility] Explanted:Qty: 2 on 01/10/2023 at [facility] [place] Mandible Elvia Craniomaxillofacial [id number] / / Elvia Craniomaxillofacial Leibinger Mcrae [place] 2 2mm 10mm Lock Cross Pin Maxillofacial Screw [id number] - [id number] Implanted:Qty: 2 on 12/05/2022 by Ion Vergara MD at [facility] Explanted:Qty: 2 on 01/10/2023 at [facility] Mandible Elvia Craniomaxillofacial [id number] / / Elvia Craniomaxillofacial Leibinger Mcrae [place] 2 2mm 12mm Lock Cross Pin Maxillofacial Screw [id number] - [id number] Implanted:Qty: 2 on 12/05/2022 by Ion Vergara MD at [facility] Explanted:Qty: 2 on 01/10/2023 at [facility] Mandible Elvia Craniomaxillofacial [id number] / / [place] Craniomaxillofacial Plate Mini 8mm Mndb [address] Condensed 2mm Screw Bone Ti [id number] - [id number] Implanted:Qty: 1 on 12/05/2022 by Ion Vergara MD at [facility] Explanted:Qty: 1 on 01/10/2023 at [facility] [place] Mandible [place] Craniomaxillofacial [id number] / / Procedures Procedure Name Priority Date/Time [...] recorder Syncope and collapse SVT (supraventricular tachycardia) LA ARTHROCENTESIS ASPIR&/INJ MAJOR JT/BURSA W/O US Routine 08/07/2024 11:15 AM CDT Primary osteoarthritis of both knees LA ARTHROCENTESIS ASPIR&/INJ MAJOR JT/BURSA W/O US Routine [...] us Todd Cedeno MD [facility]IAC [facility] [place] [...] Modality Other Narrative 08/27/2024 12:00 PM CDT C[employer] LNQ22 Loop Recorder. Dx; Syncope, Tachycardia, Palpitations. [...] CARDIAC SERVICES PROCE DURES Final Result * LA ARTHROCENTESIS ASPIR&/INJ MAJOR JT/BURSA W/O US (08/07/2024 [...] MD IN CLINIC/BEDSIDE ORDERABLES Final Result * LA ARTHROCENTESIS ASPIR&/INJ MAJOR JT/BURSA W/O US (08/07/2024 11:15 AM CDT) Dallas Mcdowell MD - 08/07/2024 11:15 AM CDT Dallas Caruso MD 08/07/2024 11:27 AM Large Joint (Hip, Knee, Shoulder) Injection: L greater trochanteric bursa Performed by: Dallas Caurso MD Authorized by: Dallas Caruso MD Large [...] signed by Dallas Caruso T: Report ID: [id number] Reading Location: [place] [address] Procedure Note Dallas Caruso MD - 08/07/2024 [...] signed by Dallas Caruso T: Report ID: [id number] Reading Location: [place] [address] us Dallas Caruso MD IMG XR PROCEDURES [...] signed by Dallas Caruso T: Report ID: [id number] Reading Location: [place] [address] Procedure Note Dallas Caruso MD - 08/07/2024 [...] signed by Dallas Caruso T: Report ID: [id number] Reading Location: [place] [address] Dallas Caruso MD IMG XR PROCEDURES Final Resu lt from Last 3 Months Insurance MEDICARE [facility] MEDICARE [facility] MEDICARE BLUE CROSS MEDICARE SUPPLEMENT MEDICARE [facility] Advance Directives For more information, please contact: [phone] Documents on File Type Date Recorded Patient Clinic Coordinator Expl anation ADVANCE DIRECTIVE 08/21/2012 12:00 AM TJ Leger WILL ADVANCE DIRECTIVE 08/21/2012 12:00 AM [employer]CIAL/MEDICAL * Full Code (Latest Code Status on File) Date Activated Date Inactivated Comments 07/14/2024 12:14 PM 07/15/2024 6:47 PM * Full Code Date Activated Date Inactivated Comments 12/04/2022 12:40 AM 12/07/2022 8:03 PM Care Teams Twenty One Dealer Relationship Specialty Start Date End Date Rachel Friend NP [address] [place] [address] PCP - General Family Medicine 11/26/23 Todd Cedeno MD [address], [address] [place] [address] Consulting Physician Cardiology 07/15/24
[2024-10-30 20:41] VITALS: BP 125/71; PULSE 92; PULSE 93; RESP 12; TEMP 36.7; O2SAT 96
[2024-10-30] MEDS: SODIUM CHLORIDE 0.9% IV 1,000 ML 999 ML IV CONT (20:44)
[2024-10-30] MEDS: ASPIRIN 81 MG CHEWABLE TABLET 324 MG PO (20:49)
[2024-10-30 20:51] VITALS: O2SAT 95
[2024-10-30 20:52] LABS: Hematocrit 36.7 % (37.0-47.0); Hemoglobin 12.6 g/dL (12.0-15.0); Immature Granulocyte Percent A 0.8 % (0-0.5); Lymphocytes Absolute Auto 0.98 K/mm3 (0.9-3.2); Mean Corpuscular HGB Conc 34.3 g/dl (32-36); Mean Corpuscular Hemoglobin 32.2 pg (26-34); Mean Corpuscular Volume 93.9 fl (80-100); Nucleated Red Blood Cells Absolute Auto 0.000 K/mm3 (0.0-0.012); Nucleated Red Blood Cells Perc 0.0 % (0.0-0.2); Platelet Count Result 235 k/mm3 (150-375); Red Blood Count 3.91 M/mm3 (4.2-5.4); White Blood Count 5.9 K/mm3 (4.5-10.0)
[2024-10-30 21:08] LABS: Partial Thromboplastin Time 21.5 Seconds (22.3-36.8)
[2024-10-30 21:23] LABS: Alanine Aminotransferase 18 U/L (6-35); Albumin Level 4.0 g/dL (3.5-5.1); Alkaline Phosphatase 48 U/L (38-126); Anion Gap 10 mmol/L (4-12); Aspartate Amino Transferase 28 U/L (14-36); Bilirubin,Total 0.2 mg/dL (0.2-1.3); Blood Urea Nitrogen 28 mg/dL (7-17); Calcium 9.4 mg/dL (8.4-10.2); Carbon Dioxide 19 mmol/L (22-30); Chloride 98 mmol/L (98-107); Estimated CRCL calculation 45 ml/min; Estimated Glomerular Filt Rate > 60; Glucose 88 mg/dL (65-110); Lipase 87 U/L (23-300); Magnesium 1.8 mg/dL (1.6-2.3); Potassium 3.6 mmol/L (3.4-5.0); Sodium 127 mmol/L (137-145); Total Protein 6.3 g/dL (6.3-8.2)
[2024-10-30 21:25] LABS: INR 1.0; Prothrombin Time 13.3 Seconds (11.1-14.7)
[2024-10-30 21:35] LABS: Troponin I < 0.012 ng/mL (0.000-0.034)
--- NOTE | 2024-10-30 22:19 | ED_ITS ---
HPI - Chest Pain General Chief Complaint: Chest Pain Stated Complaint: CHEST PAIN TOOK 3NTG TAX EXAMINER Time Seen by Provider: 10/30/24 20:13 History of Present Illness HPI narrative: Patient is a 79-year-old female who presents emergency department this evening complaining of chest pain patient states that she is eating and another restaurant and only ate about half of. Patient states that she started to have some chest pressure and felt like heart was racing. She then took 3 nitros Aimee 20s. Patient states that it has made her feel worse. Patient states that her and her were driving home and on the drive home she felt lightheaded so testing got her to the emergency department for further evaluation. In triage patient's blood pressure was noted to be 84/52. She admits to history of atrial fibrillation and sees Dr. Cedeno. Patient states that she is currently back to her baseline and she feels great and she does not want to be here. Related Data Home Medications ?Medication ?Instructions ?Recorded ?Confirmed ?Last Taken ?Type biotin 800 mcg tablet 5,000 mcg PO DAILY 06/15/19 09/09/24 07/12/24 History calcium 500 mg 1 tablet PO DAILY 06/15/19 09/09/24 07/12/24 History (carb,gluconate)-magnesium 250 mg (gluc,oxide) tablet lutein 40 mg capsule 40 mg PO DAILY 06/15/19 09/09/24 07/12/24 History multivitamin 1 tablet PO DAILY 06/15/19 09/09/24 07/12/24 History cholecalciferol (vitamin D3) 50 50 mcg PO DAILY 04/30/22 09/09/24 07/12/24 History mcg (2,000 unit) capsule nitroglycerin 0.4 mg sublingual 0.4 mg sublingual Q5M PRN CP 07/10/24 09/09/24 06/29/24 History tablet aspirin 81 mg tablet,delayed 81 mg PO DAILY 07/13/24 09/09/24 07/13/24 History release (Adult Low Dose Aspirin) diltiazem HCl 120 mg mg PO 08/17/24 09/09/24 Unknown History capsule,extended release 24 hr, controlled (DILT-XR) fexofenadine 180 mg tablet 180 mg PO DAILY 09/09/24 09/09/24 Unknown History (Linda Allergy) Allergies Allergy/AdvReac Type Severity Reaction Status Date / Time rosuvastatin AdvReac Intermediate Muscle Pain Verified 10/30/24 20:44 alendronate sodium (From AdvReac Mild rash/itching Verified 10/30/24 20:44 Fosamax) of lower legs Beta-Blockers AdvReac Unknown petechia Verified 10/30/24 20:44 (Beta-Adrenergic Bloc and vascular reaction to legs clarithromycin (From Biaxin) AdvReac Unknown extreme Verified 10/30/24 20:44 upset stomach erythromycin base AdvReac Unknown upset Verified 10/30/24 20:44 stomach tramadol AdvReac Unknown Nausea Verified 10/30/24 20:44 Review of Systems 2 Review of Systems: All systems are reviewed and are negative unless stated otherwise in the HPI. [facility] Past Medical History Medical History Implantable loop recorder present Osteopenia of spine T12 compression fracture (~11/2021) Tinnitus of left ear Hyperlipidemia Anxiety GERD without esophagitis Essential (primary) hypertension Headache, common migraine, intractable Arthralgia Low back pain with left-sided sciatica Osteopenia Hand and wrist extensor tendon rupture Surgical History Surgical History History of breast implant removal (~2011) History of hand surgery EDC centralization LT-2016, RT-2013 History of laminectomy (~02/2016) L4-5-S1 S/P laminectomy with spinal fusion (~11/2021) Family History Family History Father , Suicide No problems noted. Grandparent , Stroke Hypertension Grandparent , Stroke No problems noted. Social History Social History Social History: 2 cups of caffeine per day (coffee, tea) Smoking status: Never smoker Second hand tobacco smoke exposure: No Additional smoking assessment comments: states her parents smoked when she was a child Alcohol intake: current Drinks per week: 1 Alcohol use details: wine Substance use: never Substance use type: does not use Lack of Transportation: No Lack of Food: Never True Current Housing: I Have Housing Concerned About Future Housing: No Difficulty Paying Gas/Electric Bills: No Difficulty Paying for Meds: No Currently Unemployed: No Education: Bachelor's Degree Difficulty w/ Childcare or Family Care: No Living arrangements: with family Additional living arrangements comments: . Has 3 children. 4 grandchildren. Children live out of town. Occupation/Education: retired Gender identity (if verbalized by the patient): Female Spiritual care concerns: No Agree to blood products: Yes Exam 2 Narrative: General: Alert, awake, afebrile, in no acute distress. HEENT: PERRL, no rhinorrhea, no post nasal drip, oropharynx clear. Neck: Trachea midline, no JVD, no lymphadenopathy. Cardiovascular: Regular rate and rhythm, no murmurs, rubs or gallops, no peripheral edema. Respiratory: Clear to auscultation bilaterally, no tachypnea, no wheezing, no rhonchi, no rubs, no respiratory distress. Abdomen: Soft, nontender, nondistended, no rebound, no guarding, no peritoneal signs. Musculoskeletal: No joint swelling or deformity, normal muscle tone. Skin: No rashes or petechia, no signs of infection. Psychiatric: Alert and oriented, normal behavior and judgment for situation. Neurological: Alert and oriented to person, place, and time. Follows all commands. No focal deficits, speech is clear and fluent. Course Vital Signs Vital signs: Vital Signs Temperature 96.4 F L 10/30/24 19:59 Pulse Rate 100 10/30/24 19:59 Respiratory Rate 17 10/30/24 19:59 Blood Pressure 84/52 L 10/30/24 19:59 Pulse Oximetry 100 10/30/24 19:59 Oxygen Delivery Room Air 10/30/24 19:59 Temperature 98.1 F 10/30/24 20:41 Pulse Rate 92 10/30/24 20:41 Respiratory Rate 12 10/30/24 20:41 Blood Pressure 125/71 10/30/24 20:41 Pulse Oximetry 95 10/30/24 20:51 Oxygen Delivery Room Air 10/30/24 20:51 MDM - Chest Pain MDM Narrative Medical decision making narrative: The patient was evaluated by myself in the emergency department. History is obtained from patient who is an independent historian and physical exam was performed. External medical records were reviewed at this time. IV was established and pertinent tests were ordered. Patient was administered a full dose oral chewable aspirin and 1 L IV fluid bolus with normal saline. EKG was obtained which revealed sinus rhythm rate of 98 beats per minute, no evidence of acute ischemia. EKG was independently interpreted by me and is currently pending official cardiology read. Laboratory results obtained revealing no acute process. Baseline troponin negative. Imaging studies obtained included CXR which was independently interpreted by me revealing no acute cardiopulmonary process, which is pending final radiology interpretation. Differential diagnosis considerations include acute coronary syndrome, infectious process such as pneumonia, dehydration, electrolyte derangements, acute viral syndrome. Comorbidities impacting this visit include history of atrial fibrillation and hypertension. I have evaluated and discussed social determinants of health with the patient that could potentially impact subsequent diagnosis and treatment plans. On repeat assessment of the patient, reevaluation revealed that the patient is doing well and is in no acute distress. Patient symptoms have improved since she arrived to our emergency department. Repeat vital signs were all reviewed and noted to be stable. Differential diagnosis and treatment plan were discussed with the patient at bedside. At this time, patient is requesting to be discharged against medical advice. She understands risks including heart attack and . Patient will follow up with her PCP in 3-5 days. Patient was provided with strict return precautions and instructed to return to the emergency department if any new or worsening symptoms develop. The patient was discharged in stable condition. Lab Data 10/30/24 20:40 10/30/24 20:40 Labs: Lab Results 10/30/24 Range/Units 20:40 WBC 5.9 (4.5-10.0) K/mm3 RBC 3.91 L (4.2-5.4) M/mm3 Hgb 12.6 (12.0-15.0) g/dL Hct 36.7 L (37.0-47.0) % MCV 93.9 (80-100) fl MCH 32.2 (26-34) pg MCHC 34.3 (32-36) g/dl RDW 12.3 (11.5-14.5) % Plt Count 235 (150-375) k/mm3 MPV 8.8 (7.4-10.4) fl Immature Gran % (Auto) 0.8 H (0-0.5) % Neut % (Auto) 65.9 (45.5-73.1) % Lymph % (Auto) 16.5 L (18.3-44.2) % [place] % (Auto) 11.8 H (2.6-8.5) % Eos % (Auto) 4.0 (0-4.4) % Baso % (Auto) 1.0 (0.2-1.2) % Lymph # (Auto) 0.98 (0.9-3.2) K/mm3 [place] # (Auto) 0.7 H (0.1-0.6) K/mm3 Eos # (Auto) 0.2 (0-0.3) K/mm3 Baso # (Auto) 0.1 (0.0-0.1) K/mm3 Abs Immat Gran (auto) 0.05 H (0.00-0.031) K/mm3 Absolute Neuts (auto) 3.9 (1.3-6.7) K/mm3 Absolute Nucleated RBC 0.000 (0.0-0.012) K/mm3 Nucleated RBC % 0.0 (0.0-0.2) % PT 13.3 (11.1-14.7) Seconds INR 1.0 APTT 21.5 L (22.3-36.8) Seconds Sodium 127 L (137-145) mmol/L Potassium 3.6 (3.4-5.0) mmol/L Chloride 98 (98-107) mmol/L Carbon Dioxide 19 L (22-30) mmol/L Anion Gap 10 (4-12) mmol/L BUN 28 H (7-17) mg/dL Creatinine 0.74 (0.7-1.0) mg/dL Estim Creat Clear Calc 45 ml/min Estimated GFR > 60 (59 - ) Glucose 88 (65-110) mg/dL Calcium 9.4 (8.4-10.2) mg/dL Magnesium 1.8 (1.6-2.3) mg/dL Total Bilirubin 0.2 (0.2-1.3) mg/dL AST 28 (14-36) U/L ALT 18 (6-35) U/L Alkaline Phosphatase 48 (38-126) U/L Troponin I < 0.012 (0.000-0.034) ng/mL Total Protein 6.3 (6.3-8.2) g/dL Albumin 4.0 (3.5-5.1) g/dL Lipase 87 (23-300) U/L Discharge Plan Discharge Clinical Impression: Chest pain Patient Disposition: Left Against Medical Advice Condition: Stable Instructions: Chest Pain (ED) Additional Instructions: You would like to leave the emergency department against medical advice prior to completion of the workup. You will need to follow-up with your family doctor within the next 3-5 days. Return to the emergency department if any new or worsening symptoms develop. Patient Language: Luxembourgish Prescriptions: No Action diltiazem HCl [DILT-XR] 120 mg capsule,ext.rel 24h degradable PO cholecalciferol (vitamin D3) 50 mcg (2,000 unit) capsule 50 mcg PO DAILY fexofenadine [Linda Allergy] 180 mg tablet 180 mg PO DAILY citalopram [Celexa] 10 mg tablet 10 mg PO DAILY Qty: 90 1RF multivitamin Tablet 1 tablet PO DAILY calcium carb,gluc-mag gluc,ox 500 mg calcium -250 mg tablet 1 tablet PO DAILY biotin 800 mcg tablet 5,000 mcg PO DAILY lutein 40 mg capsule 40 mg PO DAILY Rx Instructions: administer with meals famotidine 20 mg tablet 20 mg PO DAILY Qty: 90 3RF nitroglycerin 0.4 mg tablet, sublingual 0.4 mg sublingual Q5M PRN (Reason: CP) aspirin [Adult Low Dose Aspirin] 81 mg tablet,delayed release (DR/EC) 81 mg PO DAILY clopidogrel 75 mg Tablet 75 mg PO QAM Qty: 90 3RF ipratropium bromide 21 mcg (0.03 %) spray,non-aerosol 2 spray intranasal TID Qty: 30 0RF Rx Instructions: administer into each nostril methocarbamol 750 mg tablet 750 mg PO TID PRN (Reason: muscle spasm) Qty: 90 0RF simvastatin 10 mg tablet 10 mg PO DAILY Qty: 90 1RF lisinopril 40 mg tablet 40 mg PO DAILY Qty: 90 1RF meloxicam 15 mg tablet 15 mg PO DAILY Qty: 90 1RF alprazolam 0.25 mg tablet 0.25 mg PO BID PRN (Reason: anxiety) Qty: 40 0RF Follow-up/Referrals: Rachel Friend NP [Primary Care Provider] - 3 Days Time of Disposition: 22:22
[2024-10-30 22:34] VITALS: BP 128/73; PULSE 90; RESP 20; O2SAT 94
== END 2024-10-30 22:37 | disposition left against medical advice (07) ==
PROVIDERS: Emergency Medicine; Emergency Provider Emergency Medicine; PCP Nurse Practitioner Family
DX: R07.89 Other chest pain (principal); I48.91 Unspecified atrial fibrillation; E78.5 Hyperlipidemia, unspecified; K21.9 Gastro-esophageal reflux disease without esophagitis; M85.80 Other specified disorders of bone density and structure, unspecified site; F41.9 Anxiety disorder, unspecified; Z98.1 Arthrodesis status; Z79.82 Long term (current) use of aspirin; Z79.899 Other long term (current) drug therapy; R94.31 Abnormal electrocardiogram [ECG] [EKG]
CPT/HCPCS: 36415; 71045; 80053; 83690; 83735; 84484; 85025; 85610; 85730; 93005; 96360; 99284; A9270; J7030

== ENCOUNTER 2025-01-04 08:07 | Outpatient (CLI) | payer MEDICARE, SELFPAY ==
--- OUTSIDE RECORDS SUMMARY | 2015-09-07 08:00 | XMS_ITS | Continuity of Care Document ---
Author Organization [facility] Address [address] [place] [address] Phone Care Team Providers Care Mandrel Press Hand Name Role Phone Nabor Ceja MD Unavailable [...] Copied on Encounter OFFICE/OUTPA TIENT VISIT NEW [facility], [address] [facility] [address], [place], [address], tel:[phone] [facility] My back and right ankle hurt alot (chief complaint) Body mass index (BMI) 19 or less, adultLow back painPeroneal tendinitis of right lower extremitySpondylo listhesis at L4-L5 level 6 Brenna Tomlin. [address] [place], [place], [id number] . tel:[phone] Referring Provider: Tara Hudson, [address] [place], [address] . tel:[phone] Family History Family Member Type Diagnosis Age At Onset Father Problem (finding) hypertension Father Problem (finding) depression Payers Payer name Insurance type Covered libertarian ID Ronnie andujar(s) Medicare E2 OT [id number] Combined Insurance OT [id number] Social History Type Description Quantity Date Captured [...]
--- OUTSIDE RECORDS SUMMARY | 2025-01-04 08:36 | XMS_ITS | Encounter Summary ---
Author Organization [facility] Facility Care Team Providers Care Frame Polisher Name Role Phone Tara Hudson MD Primary Care Provider [phone] Gege Herrera MD Primary Care Provider Rachel Friend MEETING SPECIALIST Primary Care Provider [phone] Emily Clements MEETING SPECIALIST Primary Care Provider [phone] Rachel Friend MEETING SPECIALIST Primary Care Provider [phone] Todd Cedeno MD Unavailable [phone] Encounter Details Date Type Department Care Team (Latest Contact Info) Description 12/02/2017 Orders Only [facility] CLINCONV ProviderAlhaji MD [address] [place] [address] Social History Tobacco Use Types Packs/Day Years Used Date Smoking Tobacco: Never Assessed Comments Unknown Sex and Gender Information Value Date Recorded Sex Assigned at Not on file Legal 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 Gender Identity Female 12/12/2018 8:34 AM CDT [...] on filedocumented in this encounter Care Teams Frame Polisher Relationship Specialty Start Date End Date Tara Hudson MD [address] [facility] [address] [place] [address] PCP - General 12/17/16 11/02/19 Gege Herrera MD [address] [address] PCP - General Family Medicine 11/03/19 10/16/20 Rachel Friend NP [address] [facility] [address] [place] [address] PCP - General Family Medicine 10/17/20 01/09/23 Emily Clements NP [address] [place] [address] PCP - General Nurse Practitioner 01/10/23 11/25/23 Rachel Friend, [address] [place] [address] PCP - General Family Medicine 11/26/23 Todd Cedeno MD [address] [place] [address] Consulting Physician Cardiology 07/15/24 documented as of this encounter
--- OUTSIDE RECORDS SUMMARY | 2025-01-04 08:36 | XMS_ITS | Encounter Summary ---
Author Organization [facility] Facility Care Team Providers Care Control Officer Name Role Phone Tara Hudson MD Primary Care Provider [phone] Gege Herrera MD Primary Care Provider Rachel Friend QM NURSE Primary Care Provider [phone] Emily Clements QM NURSE Primary Care Provider [phone] Rachel Friend QM NURSE Primary Care Provider [phone] Todd Cedeno MD Unavailable [phone] Encounter Details Date Type Department Care Team (Latest Contact Info) Description 11/25/2017 Orders Only [facility] CLINCONV ProviderAlhaji MD [address] [place] [address] Social History Tobacco Use Types Packs/Day Years Used Date Smoking Tobacco: Never Assessed Comments Unknown Sex and Gender Information Value Date Recorded Sex Assigned at Not on file Legal Sex Female 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 Gender Identity Female 12/12/2018 8:34 AM CDT [...] on filedocumented in this encounter Care Teams Control Officer Relationship Specialty Start Date End Date Tara Hudson MD [address] [facility] [address] [place] [address] PCP - General 12/17/16 11/02/19 Gege Herrera MD [address] [address] PCP - General Family Medicine 11/03/19 10/16/20 Rachel Friend NP [address] [facility] [address] [place] [address] PCP - General Family Medicine 10/17/20 01/09/23 Emily Clements NP [address] [place] [address] PCP - General Nurse Practitioner 01/10/23 11/25/23 Rachel Friend NP [address] [place] [address] PCP - General Family Medicine 11/26/23 Todd Cedeno MD [address] [place] [address] Consulting Physician Cardiology 07/15/24 documented as of this encounter
--- OUTSIDE RECORDS SUMMARY | 2025-01-04 08:36 | XMS_ITS | Encounter Summary ---
Author Organization [facility] Facility Care Team Providers Care Critical Care Transport Nurse Name Role Phone Tara Hudson MD Primary Care Provider [phone] Gege Herrera MD Primary Care Provider Rachel Friend INSTRUMENT REPAIRER STEAM PLANT Primary Care Provider [phone] Emily Clements INSTRUMENT REPAIRER STEAM PLANT Primary Care Provider [phone] Rachel Friend INSTRUMENT REPAIRER STEAM PLANT Primary Care Provider [phone] Todd Cedeno MD Unavailable [phone] Encounter Details Date Type Department Care Team (Latest Contact Info) Description 02/22/2016 Orders Only [facility] CLINCONV ProviderAlhaji MD [address] [place] [address] Social History Tobacco Use Types Packs/Day Years Used Date Smoking Tobacco: Never Assessed Comments Unknown Sex and Gender Information Value Date Recorded Sex Assigned at Not on file 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 [facility] Provider Final Res ult * PROCEDURE - RESULT (02/22/2016 12:00 AM CDT) Narrative 02/22/2016 12:00 AM CDT Ordered by an unspecified provider. [facility] Provider Final Res ult documented in this encounter Visit Diagnoses Not on filedocumented in this encounter Care Teams Critical Care Transport Nurse Relationship Specialty Start Date End Date Tara Hudson MD [address] [address] PCP - General 12/17/16 11/02/19 Gege Herrera MD [address] [address] PCP - General Family Medicine 11/03/19 10/16/20 Rachel Friend NP [address] [address] PCP - General Family Medicine 10/17/20 01/09/23 Emily Clements NP [address] [place] [address] PCP - General Nurse Practitioner 01/10/23 11/25/23 Rachel Friend NP [address] [place] [address] PCP - General Family Medicine 11/26/23 Todd Cedeno MD [address] [place] [address] Consulting Physician Cardiology 07/15/24 documented as of this encounter
--- OUTSIDE RECORDS SUMMARY | 2025-01-04 08:36 | XMS_ITS | Encounter Summary ---
Author Organization [facility] Facility Care Team Providers Care C2 Tactical Analysis Technician Name Role Phone Tara Hudson MD Primary Care Provider [phone] Gege Herrera MD Primary Care Provider Rachel Friend RESOURCE ROOM SPECIAL EDUCATION TEACHER Primary Care Provider [phone] Emily Clements RESOURCE ROOM SPECIAL EDUCATION TEACHER Primary Care Provider [phone] Rachel Friend RESOURCE ROOM SPECIAL EDUCATION TEACHER Primary Care Provider [phone] Todd Cedeno MD Unavailable [phone] Encounter Details Date Type Department Care Team (Latest Contact Info) Description 03/05/2016 Orders Only [facility] CLINCONV ProviderAlhaji MD [address] [place] [address] Social History Tobacco Use Types Packs/Day Years Used Date Smoking Tobacco: Never Assessed Comments Unknown Sex and Gender Information Value Date Recorded Sex Assigned at Not on file Legal Sex Female 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 us Historical Provider Final Res ult * PROCEDURE - RESULT (03/05/2016 12:00 AM HYSTER MACHINE OPERATOR) Narrative 03/05/2016 12:00 AM HYSTER MACHINE OPERATOR Ordered by an unspecified provider. us Historical Provider Final Res ult documented in this encounter Visit Diagnoses Not on filedocumented in this encounter Care Teams C2 Tactical Analysis Technician Relationship Specialty Start Date End Date Tara Hudson MD [address] [address] PCP - General 12/17/16 11/02/19 Gege Herrera MD [address] [address] PCP - General Family Medicine 11/03/19 10/16/20 Rachel Friend NP [address] [address] PCP - General Family Medicine 10/17/20 01/09/23 Emily Clements NP [address] [place] [address] PCP - General Nurse Practitioner 01/10/23 11/25/23 Rachel Friend, AIRAM [address] [place] [address] PCP - General Family Medicine 11/26/23 Todd Cedeno MD [address] [place] [address] Consulting Physician Cardiology 07/15/24 documented as of this encounter
--- OUTSIDE RECORDS SUMMARY | 2025-01-04 08:36 | XMS_ITS | Clinical Summary ---
Author Organization [facility] Address [address] [place] [address] Care Team Providers Care Correctional Supervisor Lieutenant Name Role Phone Tara Hudson MD Primary Care Provider [phone] Source Comments [facility],non-owned Affiliates and Associated Physician Practices is amultiple site organization consisting of ambulatory clinics and hospital sitesin [place], [place], [place] and [place]. This disclosure is being madepursuant to the Care Everywhere program and may not contain all information available regarding this patient. Last updated 18.[facility] Allergies Active Allergy Reactions Criticality Noted Date [...] on file Legal Sex Female 5:57 PM PAYLOADER MACHINE OPERATOR Gender Identity Not on file Sexual Orientation Not on file Last Filed Vital Signs Vital Sign Reading Time Taken Comments Blood Pressure 128/72 05/27/2018 12:26 PM PAYLOADER MACHINE OPERATOR Pulse 80 05/27/2018 12:26 PM PAYLOADER MACHINE OPERATOR Temperature 37 C (98.6 F) 05/27/2018 12:26 PM PAYLOADER MACHINE OPERATOR Respiratory Rate 16 05/27/2018 12:26 PM PAYLOADER MACHINE OPERATOR Oxygen Saturation 100% 05/27/2018 12:26 PM PAYLOADER MACHINE OPERATOR Inhaled Oxygen Concentration - - Weight 52.2 kg (115 lb) 05/27/2018 12:26 PM PAYLOADER MACHINE OPERATOR Height 162.6 cm (5' 4) 05/27/2018 12:26 PM PAYLOADER MACHINE OPERATOR Body Mass Index 19.74 05/27/2018 12:26 PM PAYLOADER MACHINE OPERATOR Plan of Treatment Health Maintenance Due Date Last Done Comments BONE DENSITY TESTING 1945 MEDICARE AWV 12 MONTHS 1945 HEPATITIS C SCREENING 03/24/1964 DTAP/TDAP/TD VACCINES (1 - Tdap) 1965 PNEUMOCOCCAL VACCINE 50+ (1 of 1 - PCV) 1996 ZOSTER VACCINE (1 of 2) 1996 Respiratory Syncytial Virus (RSV) Vaccine Pt: or over 60 yrs (1 - 1-dose 75+ series) 2021 DEPRESSION SCREENING 04/22/2024 COVID-19 VACCINE (1 - 2023-2 5 season) 2024 INFLUENZA VACCINE (#1) 2024 HEPATITIS B VACCINE Aged Out No [...] topic Insurance MEDICARE MEDICARE MEDICARE Care Teams Correctional Supervisor Lieutenant Relationship Specialty Start Date End Date Tara Hudson MD [address] [place] [address] [place] [address] PCP - General 12/12/12
--- OUTSIDE RECORDS SUMMARY | 2025-01-04 08:36 | XMS_ITS | Encounter Summary ---
Author Organization [facility] Facility Care Team Providers Care Button Maker And Installer Name Role Phone Tara Hudson MD Primary Care Provider [phone] Gege Herrera MD Primary Care Provider Rachel Friend COMMERCIAL PRINT SALESMAN Primary Care Provider [phone] Emily Clements COMMERCIAL PRINT SALESMAN Primary Care Provider [phone] Rachel Friend COMMERCIAL PRINT SALESMAN Primary Care Provider [phone] Todd Cedeno MD Unavailable [phone] Encounter Details Date Type Department Care Team (Latest Contact Info) Description 02/06/2016 Orders Only [facility] CLINCON[facility] ProviderAlhaji MD [address] [place] [address] Social History Tobacco Use Types Packs/Day Years Used Date Smoking Tobacco: Never Assessed Comments Unknown Sex and Gender Information Value Date Recorded Sex Assigned at Not on file Legal Sex Female 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 Gender Identity Female 12/12/2018 8:34 AM CDT [...] on filedocumented in this encounter Care Teams Button Maker And Installer Relationship Specialty Start Date End Date Tara Hudson MD [address] [address] PCP - General 12/17/16 11/02/19 Gege Herrera MD [address] [address] PCP - General Family Medicine 11/03/19 10/16/20 Rachel Friend NP [address] [facility] [address] [place] [address] PCP - General Family Medicine 10/17/20 01/09/23 Emily Clements NP [address] [place] [address] PCP - General Nurse Practitioner 01/10/23 11/25/23 Rachel Friend, [address] [place] [address] PCP - General Family Medicine 11/26/23 Todd Cedeno MD [address] [place] [address] Consulting Physician Cardiology 07/15/24 documented as of this encounter
--- OUTSIDE RECORDS SUMMARY | 2025-01-04 08:36 | XMS_ITS | Encounter Summary ---
Author Organization [facility] Facility Care Team Providers Care Wet Wash Assembler Name Role Phone Tara Hudson MD Primary Care Provider [phone] Gege Herrera MD Primary Care Provider Rachel Friend HUSKER OPERATOR Primary Care Provider [phone] Emily Clements HUSKER OPERATOR Primary Care Provider [phone] Rachel Friend HUSKER OPERATOR Primary Care Provider [phone] Todd eCdeno MD Unavailable [phone] Encounter Details Date Type Department Care Team (Latest Contact Info) Description 01/04/2016 Orders Only [facility] CLINCONV ProviderAlhaji MD [address] [place] [address] Social History Tobacco Use Types Packs/Day Years Used Date Smoking Tobacco: Never Assessed Comments Unknown Sex and Gender Information Value Date Recorded Sex Assigned at Not on file Legal Sex Female 1:32 AM 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 [facility] Provider Final Res ult * PROCEDURE - RESULT (01/04/2016 12:00 AM CDT) Narrative 01/04/2016 12:00 AM CDT Ordered by an unspecified provider. [facility] Provider Final Res ult documented in this encounter Visit Diagnoses Not on filedocumented in this encounter Care Teams Wet Wash Assembler Relationship Specialty Start Date End Date Tara Hudson MD [address] [address] PCP - General 12/17/16 11/02/19 Gege Herrera MD [address] [address] PCP - General Family Medicine 11/03/19 10/16/20 Rachel Friend NP [address] [address] PCP - General Family Medicine 10/17/20 01/09/23 Emily Clements NP [address] [place] [address] PCP - General Nurse Practitioner 01/10/23 11/25/23 Rachel Friend NP [address] [place] [address] PCP - General Family Medicine 11/26/23 Todd Cedeno MD [address] [place] [address] Consulting Physician Cardiology 07/15/24 documented as of this encounter
--- OUTSIDE RECORDS SUMMARY | 2025-01-04 08:38 | XMS_ITS | Clinical Summary ---
Author Organization [facility] Address [address] [place] [address] Care Team Providers Care Collection Agent Name Role Phone Rachel Friend NP Primary Care Provider [phone] Todd Cedeno MD Unavailable [phone] Allergies Active Allergy Reactions Criticality Noted Date [...] under the tongue every morning Active lisinopriL (PRINIVIL,ZESTRI L) 40 mg tablet Take 1 tablet (40 mg total) by mouth every morning 08/08/19 23 Active acetaminophen 500 mg capsule Take 1 capsule (500 mg total) by mouth every 6 (six) hours as needed for pain Active ALPRAZolam (XANAX) 0.25 mg tablet Take 0.5 tablets (0.125 mg total) by mouth nightly as needed 03/25/20 24 Active nitroglycerin (NITROSTAT) 0.4 mg SL tabletIndication s:Atypical chest pain Place 1 tablet (0.4 mg [...] 1 tablet (20 mg total) by mouth nightly Active clopidogreL (PLAVIX) 75 mg tablet Take 1 tablet (75 mg total) by mouth daily 30 tablet 07/16/19 026 Active Additional Information Patient taking differently:75 mg oralNightly, Reported on 12/22/2024 aspirin 81 mg enteric coated tablet Take 1 tablet (81 mg total) by mouth daily 30 tablet 07/16/19 Active omega-3 fatty acids-fish oil 300-1,000 mg capsule Take 2 capsules (2 g total) by mouth daily Active glucosamine/richard dr seda Bright sod (OSTEO BI-FLEX ORAL) Take by mouth every other day Active diltiazem (TIAZAC) 120 mg 24 hr capsuleIndicatio ns:SVT (supraventricula r tachycardia) Take 1 capsule (120 mg total) by mouth daily 90 capsule 07/29/19 026 Active Additional Information Patient taking differently:120 mg oralNightly, Reported on 12/22/2024 rosuvastatin (CRESTOR) 20 mg tablet Take 1 tablet (20 mg total) by mouth daily 90 tablet 3 10/17/19 25 026 Active Additional Information Patient taking differently:20 mg oralNightly, Reported on 12/22/2024 furosemide (LASIX) 20 mg tablet 1 tablet daily as needed for fluid retention 20 tablet 1 01/02/20 25 Active apixaban (ELIQUIS) 5 mg tabletIndication s:atrial fibrillation Take 1 tablet (5 mg total) by mouth 2 (two) times a day 180 tablet 2 11/05/19 25 025 Discontin ued(Stop Taking at Discharge ) Active Problems Problem Noted Date Diagnosed Date A-fib 12/22/2024 Paroxysmal atrial fibrillation 12/10/2024 Assessment & Plan (12/10/2024 2:50 PM CDT): The patient has paroxysmal atrial fibrillation, relatively new diagnosis. She is symptomatic, but is only minimally bothered by her palpitations and sensation of tachycardia at this point. She is most distressed by her ongoing anticoagulation, which was appropriately initiated for a very high CHADS-VASc score (5). This, in addition to dual antiplatelet therapy (necessary post PCI) has resulted in significant superficial ecchymosis (and bleeding) involving all 4 limbs. Given her history of unexplained falls, anticoagulation is likely to be problematic in the intermediate. Because of this combination of factors, we discussed the steps involved and rationale for percutaneous left atrial appendage occlusion (placement of a [place] left atrial appendage occlusion device). We discussed the risks, including hematoma/vascular injury, myocardial perforation, stroke or thromboembolic event, device embolism, and . We discussed the benefits, as well as the post- Watchman medication / follow-up regimen, to include a WHIT at 45 days post-device placement. I provided the patient with educational material. If the patient would like to proceed, I will refer her to our Watchman coordinator for additional screening and preparations. She is presently satisfied with low-dose diltiazem, and we will not change this medication at this time. She inquired as to the usefulness of ablation, which I explained would be more for symptoms. By her own admission, her symptoms are not nearly as troublesome as ongoing anticoagulation, so we will prioritize PLAAO/C. From: Олег ABRAMS, Cornelio HOLLIS, Linden AL, et al. 2022 CC/AHA/ACCP/HRS Guideline for the Diagnosis and Management of Atrial Fibrillation: A Report of the [place] [employer]/ [place] [employer] Association Joint Committee on Clinical Practice Guidelines. Circulation 2023;148: e42 Class IIA: In patients with AF, a moderate to high risk of stroke ([id number] score >=2), and a contraindication to long-term oral anticoagulation due to a nonreversible cause, percutaneous LAAO (pLAAO) is reasonable Coronary artery disease invo lving [place] coronary artery of [place] heart with angina pectoris 07/14/2024 Gastroesophageal reflux disease without esophagi tis 07/14/2024 Anxiety 07/14/2024 CAD in [place] artery 07/14/2024 Angina pectoris, unstable 07/14/2024 SVT (supraventricular tachycardia) 04/18/2023 Atypical chest pain 04/18/2023 Closed fracture of mandible 01/04/2023 Fall, initial encounter 12/03/2022 Open fracture of mandible 12/03/2022 Status post placement of implantable loop record er 07/17/2022 Overview (07/17/2022): Octmami LNQ22 Loop Recorder. Dx; Syncope, Tachycardia, Palpitations. DOI 06/15/2022-Fleissner. Mirza. Smarty Ring remote monitoring. Visit for wound check 06/22/2022 [...] Encounters Date Type Department Care Team Description 01/01/2025 Telephone [facility] Cardiology [address] [place] [phone] Todd Cedeno MD 12/22/2024 4:05 PM CDT - 12/22/2024 5:35 PM CDT Surgery [facility] [address] [place] [phone] Tigre Triana MD PERC STACEY CLOSE W/IMPLANT [id number] 12/22/2024 3:22 PM CDT Anesthesia Event [facility] [address] [place] [phone] Ion Mccollum MD Fichter, Christopher Robert, MD 12/22/2024 1:50 PM CDT - 12/22/2024 7:28 PM CDT Hospital Encounter [facility] [address] [place] [phone] Tigre Triana MD Paroxysmal atrial fibrillation (HCC) Discharge Disposition: Discharge to home or self care 12/15/2024 Telephone [facility] [address] [address] [address] Teresa Yuen RN 12/11/2024 11:00 AM CDT Office Visit [facility] [address] [place] [address] [place] [phone] Minerva Chua NP SVT (supraventricular tachycardia) (Primary Dx); Paroxysmal atrial fibrillation (HCC); Status post placement of implantable loop recorder; Coronary artery disease involving [place] coronary artery of [place] heart without angina pectoris; Benign essential hypertension 12/10/2024 10:00 AM CDT Office Visit [facility] [address] [place] [address] [address] [address] Tigre Triana MD Paroxysmal atrial fibrillation (HCC) (Primary Dx); Status post placement of implantable loop recorder 12/10/2024 Telephone [facility] [address] [place] [address] [address] [address] Teresa Yuen RN 11/30/2024 7:00 AM CDT Ancillary Procedure [facility] [address] [facility] [address] [phone] Palpitations; Status post placement of implantable loop recorder; Syncope and collapse; SVT (supraventricular tachycardia) 11/06/2024 Telephone [facility] [address] [place] [address] [place] [phone] Todd Cedeno MD 11/04/2024 Telephone [facility] [address] [place] [address] [place] [phone] Rosa Cotto NP 11/04/2024 Orders Only [facility] [address] [place] [address] [place] [phone] Tigre Triana MD Paroxysmal atrial fibrillation (HCC) (Primary Dx) 11/04/2024 Orders Only [facility] [address] [place] [address] [place] [phone] Rosa Cotto NP Paroxysmal atrial fibrillation (HCC) (Primary Dx) 10/30/2024 11:00 AM CDT Office Visit [facility] [address] [place] [address] [place] [phone] Rosa Cotto NP Paroxysmal atrial fibrillation (HCC) (Primary Dx); CAD in [place] artery 10/30/2024 Telephone [facility] [address] [place] [address] Tigre Triana MD 10/19/2024 7:45 AM CDT Ancillary Procedure [facility] [address] [place] [address] Paroxysmal atrial fibrillation (HCC) (Primary Dx); Palpitations; Status post placement of implantable loop recorder; Syncope and collapse; SVT (supraventricular tachycardia) 10/19/2024 Telephone [facility] [address] [place] [address] Todd Cedeno MD 10/16/2024 Telephone [facility] [address] [place] [phone] Todd Cedeno MD from Last 3 Months Immunizations Immunization Administration [...] Procedure: PCI BALJEET MAJOR CORONARY C9600 - [id number]; Surgeon: Xu Bhardwaj MD; Location: [facility] CARDIAC GUEST RELATIONS MANAGER; Service: Cardiovascular; Laterality: N/A; Medical devices from this surgery are in the Medical Devices section. CARDIAC CATHETERIZATION 07/14/2024 N/A Procedure: Percutaneous Coronary Lithotripsy W/ PCI (+) [id number]; Surgeon: Xu Bhardwaj MD; Location: [facility] CARDIAC GUEST RELATIONS MANAGER; Service: Cardiovascular; Laterality: N/A; Medical devices from this surgery are in the Medical Devices section. CARDIAC CATHETERIZATION 07/14/2024 N/A Procedure: IVUS NON-COR 1ST VESSEL; Surgeon: Xu Bhardwaj MD; Location: [facility] CARDIAC GUEST RELATIONS MANAGER; Service: Cardiovascular; Laterality: N/A; Medical devices from this surgery are in the Medical Devices section. IMPLANTABLE CARDIAC DEVICE 12/22/2024 N/A Procedure: PERC STACEY CLOSE W/IMPLANT [id number]; Surgeon: Tigre Triana MD; Location: [facility] CARDIAC GUEST RELATIONS MANAGER; Service: Cardiovascular; Laterality: N/A; Medical devices from this surgery are in the Medical Devices section. Medical History Medical History Date Comments HL (hearing loss) Tinnitus Hypertension Osteoarthritis Trochanteric bursitis, right hip History of lumbar fusion 2012 Hypercholesterolemia Dizziness Cardiac rhythm disturbance Sinusitis Allergic rhinitis Cataracts, bilateral Anxiety Arthritis Mandible fracture Ankle fracture Syncope Cardiac complication 11/2021 hypotension and tachycardia post op lumbar surgery 11/2021, estimated blood loss 1 L History of blood transfusion 2021 aft er lumbar surgery Dental disease Headache Abnormal ECG Motion sickness Heart disease 07/02/24 Family History Medical History Relation Name Comments [...] = 0.6 oz pur e alcohol) [facility] Utilities Answer Date Recorded In the past 12 months has th e electric, gas, oil, or water company threatened to shut off services in your home? No 07/15/2024 Social Connection and Isolation Panel Answer Date Recorded Frequency of Communication with Friends and Fami ly Not on file 07/15/2024 How often do you get togethe r with friends or relatives? Three times a week 07/15/2024 How often do you attend chur ch or mosque services? Never 07/15/2024 Do you belong to any clubs o r organizations such as yarsanism groups, unions, fraternal or athletic groups, or [...] were you homeless or living in a detention (including now)? No 07/15/2024 Personal Safety Answer Date Recorded Have you ever been in or are you currently in a harmful physical or emotional relationship or is someone making you feel afraid or unsafe? 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 Gender Identity Female 12/12/2018 8:34 AM CDT Sexual Orientation Straight 12/12/2018 8: 34 AM CDT Occupation Industry Job Start Date Job End Date retired Not on file Not on file Not on file Obstetrics History Last Filed Vital Signs Vital Sign Reading Time Taken Comments Blood Pressure 152/72 12/22/2024 6:04 PM CDT Pulse 75 12/22/2024 6:04 PM CDT Temperature 36.2 C (97.2 F) 12/22/2024 4:30 PM CDT Respiratory Rate 16 12/22/2024 6:04 PM CDT Oxygen Saturation 96% 12/22/2024 6:04 PM CDT Inhaled Oxygen Concentration - - Weight 52.3 kg (115 lb 4.8 oz) 12/22/2024 2:31 P M CDT Height 160 cm (5' 3) 12/22/2024 2:31 PM CDT Body Mass Index 20.42 12/22/2024 2:31 PM CDT Plan of Treatment Health Maintenance Due Date Last Done Comments Depression Screening 1945 Hepatitis C Screening 1945 Hepatitis B Screening 1964 Zoster Vaccine (2 of 3) 07/25/2007 05/30/2007 Well Visit 65+ 2011 Osteoporosis Screening-Bone Density Scan 11/12/2020 11/12/2018, 11/10/2018 Influenza Vaccine (#1) 2024 , 12/28/2020, 01/05/2020, Additional history exists Fall Risk Assessment 12/22/2025 12/22/2024 DTaP/Tdap/Td Vaccine (3 - Td or Tdap) 12/03/2032 12/03/2022, 08/21/2009 Pneumococcal vaccine 65+ Completed 017, 02/03/2015, 01/20/2015, Additional history exists Breast Cancer Screening-Mammogram Discontinued 019, 02/10/2018 Medical Devices Implanted Type Area Parts Counterperson Device Identifier Shelf Expiration Date Model / Serial / Lot Implantable Loop Recorder Implantable Loop Recorder Chest [employer] Cornelius Device Closure 24mm Lt Watchman Flx Pro Cardiac Strl La [id number] - [id number] - [id number] Implanted:Qty: 1 on 12/22/2024 by Tigre Triana MD at [facility] Left Atrial Appendage Occluder [employer] Cornelius 10/13/2027 [id number] / [id number] / [id number] Cast Vascular System Closure Repair Femoral Artery Suture Mediated Perclose Prostyle 37685-30 - S0 - [id number] Implanted:Qty: 1 on 07/14/2024 by Xu Bhardwaj MD at [facility] Other - see comments Cast Vascular 03/21/2026 [id number] / 0 / [id number] Cardiva [employer] Inc Device Vascular Closure Vascade Mvp Xl 10-12fr Venous Strl 800-1012xl - [id number] - [id number] Implanted:Qty: 1 on 12/22/2024 by Tigre Triana MD at [facility] Vascular Closure Device [employer] Inc 10/12/2026 800-1012X L / [id number] / [id number] Medtronic Inc Infuse Kit Xs Graft Bone Rhbmp-2 Bovine Collagen Lumbar Taper [id number] - [id number] Implanted:Qty: 1 on 12/05/2022 by Ion Vergara MD at [facility] N/A: Chin Medtronic Inc [id number] 04/21/2024 [id number] / / [id number] C [employer] Vitoss Void Filler Foam Pack Bioactive Substitute 2.5ml Bone [id number] - [id number] Implanted:Qty: 1 on 12/05/2022 by Ion Vergara MD at [facility] N/A: Ronald [employer] [id number] 06/19/2023 [id number] / / [id number] [employer] [facility] Synergy Xd Monorail 2.75mm 38mm 144cm Delivery System 1 Access [id number] - S0 - [id number] Implanted:Qty: 1 on 07/14/2024 by Xu Bhardwaj MD at [facility] [employer] [facility] 11/27/2025 [id number] / 0 / [id number] Explanted Type Area Parts Counterperson Device Identifier Shelf Expiration Date Model / Serial / Lot Elvia Craniomaxillofacial Leibinger [place] 2 2mm 5mm Self Tap Cross Pin Maxillofacial 50 - [id number] Implanted:Qty: 8 on 12/05/2022 by Ion Vergara MD at [facility] Explanted:Qty: 8 on 01/10/2023 at [facility] [place] Mandible Elvia Craniomaxillofacial 50 / / Elvia Craniomaxillofacial Leibinger [place] 2 Smart Lock 9 Hole Mandible Small Plate Bone [id number] - [id number] Implanted:Qty: 2 on 12/05/2022 by Ion Vergara MD at [facility] Explanted:Qty: 2 on 01/10/2023 at [facility] Mandible [place] Craniomaxillofacial [id number] / / Elvia Craniomaxillofacial Leibinger [place] 2 Smartlock 2mm 8mm Self Drill Lock 50 - [id number] Implanted:Qty: 10 on 12/05/2022 by Ion Vergara MD at [facility] Explanted:Qty: 10 on 01/10/2023 at [facility] Mandible Elvia Craniomaxillofacial 50 / / [place] Craniomaxillofacial 16 Hole Maxillofacial 1.5mm Mini Plate Bone [id number] - [id number] Implanted:Qty: 1 on 12/05/2022 by Ion Vergara MD at [facility] Explanted:Qty: 1 on 01/10/2023 by Ion Vergara MD at [facility] [place] Mandible [place] Craniomaxillofacial [id number] / / Elvia Craniomaxillofacial Leibinger [place] 2 2mm 8mm Lock Cross Pin Mandibular Screw [id number] - [id number] Implanted:Qty: 2 on 12/05/2022 by Ion Vergara MD at [facility] Explanted:Qty: 2 on 01/10/2023 at [facility] Mandible Elvia Craniomaxillofacial [id number] / / Elvia Craniomaxillofacial Leibinger [place] 2 2mm 10mm Lock Cross Pin Maxillofacial Screw [id number] - [id number] Implanted:Qty: 2 on 12/05/2022 by Ion Vergara MD at [facility] Explanted:Qty: 2 on 01/10/2023 at [facility] Mandible [place] Craniomaxillofacial [id number] / / [place] Craniomaxillofacial Leibinger [place] 2 2mm 12mm Lock Cross Pin Maxillofacial Screw [id number] - [id number] Implanted:Qty: 2 on 12/05/2022 by Ion Vergara MD at [facility] Explanted:Qty: 2 on 01/10/2023 at [facility] [place] Mandible Elvia Craniomaxillofacial [id number] / / Elvia Craniomaxillofacial Plate Mini 8mm Mndb 16 Hole Str Condensed 2mm Screw Bone Ti [id number] - [id number] Implanted:Qty: 1 on 12/05/2022 by Ion Vergara MD at [facility] Explanted:Qty: 1 on 01/10/2023 at [facility] [place] Mandible Elvia Craniomaxillofacial [id number] / / Procedures Procedure Name Priority Date/Time Associated Diagnosis Comments ECG 12-LEAD Routine 12/22/2024 5:29 PM CDT HWIT GUIDANCE DURING CARDIAC STRUCTURAL INTVN [id number] Routine 12/22/2024 4:26 PM CDT PERC STACEY CLOSURE W/IMPLANT (WATCHMAN) [id number] Routine 12/22/2024 4:10 PM CDT Paroxysmal atrial fibrillation (HCC) POCT ACTIVATED CLOTTING TIME, HIGH RANGE Routine 12/22/2024 3:56 PM CDT NJ AN PROCEDURE PLACEHOLDER Routine 12/22/2024 3:41 PM CDT NJ AN ELECTIVE ENDOTRACHEAL AIRWAY Routine 12/22/2024 3:41 PM CDT ECG 12-LEAD STAT 12/22/2024 2:52 PM CDT TYPE AND SCREEN STAT 12/22/2024 1:58 PM CDT ECG 12-LEAD Routine 12/10/2024 10:03 AM CDT Paroxysmal atrial fibrillation (HCC) DEVICE CHECK - REMOTE Routine 12/01/2024 10:58 AM CDT Palpitations Status post placement of implantable loop recorder Syncope and collapse SVT (supraventricular tachycardia) SCANNED LABS Routine 10/30/2024 11:53 AM CDT CBC WITH AUTO DIFFERENTIAL Routine 10/30/2024 Paroxysmal atrial fibrillation (HCC) DEVICE CHECK - REMOTE Routine 10/19/2024 2:54 PM CDT Palpitations Status post placement of implantable loop recorder Syncope and collapse SVT (supraventricular tachycardia) from Last 3 Months Results * ECG 12 lead (12/22/2024 5:29 PM CDT) 12/22/2024 5:29 PM CDT Narrative [facility] - 12/23/2024 10:59 AM CDT Vent Rate: 66 bpm RR Interval: 907 msec NJ Interval: 236 msec QRS Duration: 125 msec QT Interval: 391 msec QTC Interval: 404 msec P-R-T Kevin: 59 - -50 - 14 degrees IMPRESSION: SINUS RHYTHM WITH FIRST DEGREE AV BLOCK LEFT ANTERIOR FASCICULAR BLOCK [QRS AXIS <= -45, QR IN I, RS IN II] POSSIBLE ANTERIOR MYOCARDIAL INFARCTION (MINIMAL R-WAVE PROGRESSION PRESENT) ABNORMAL ECG Electronically Signed By: Barak Coombs MD [facility] us Tigre Triana MD ECG ORDERABLES Final R esult [facility] * WHIT Guidance During Cardiac [place] Int[place] [id number] (12/22/2024 4:26 PM CDT) Anatomical Region Laterality Modality Echocardiography 12/22/2024 3:23 PM CDT Narrative 12/22/2024 5:55 PM CDT [facility] [address] [place] [address] TRANSESOPHAGEAL ECHOCARDIOGRAM Patient Name: KATINA FISH : 1945 (79y 8m) Sex: F Study Date: 12/22/2024 03:23:12 PM Ht(Inch): 65 Wt(Lb): 117 BSA: 1.56 Rn Social Services: DANIELLE Location: 6152 Order Provider: TIGRE TRIANA BMI: 19.47 BP: 145/70 Ref Provider: TIGRE TRIANA PROCEDURES: Transesophageal Echo Report: Transesophageal echocardiogram including 2D imaging, spectral doppler and color doppler was performed in the cardiac catheterization laboratory to support a structural procedure. The procedure was monitored with automatic blood pressure monitoring, ECG tracings, and pulse oximetry. Sedation was achieved by anesthesia using Propofol IV. The transesophageal probe was placed in the esophagus posterior to the heart without any complications. The patient tolerated the procedure well. INDICATIONS: MEASUREMENTS: 2D/MM Value Range Estimated EF 70 % 2D/MM Value Range FINDINGS: BP: Blood pressure: 145/70 mmHg. Left Ventricle: Normal global and regional left ventricular systolic function. Ejection Fraction is estimated to be 70 %. LV wall thickness is within normal limits. A sigmoid septum is present. There is some degree of resting LVOT obstruction which could not be accurately quantitated. Right Ventricle: Normal right ventricular size. Normal right ventricular systolic function. Left Atrium: The left atrium is normal in size. LA Appendage: No left atrial appendage thrombus at the start of the case. During the case a left atrial appendage occlusion device was deployed in the left atrial appendage. It appears well-seated. There is no color Doppler flow around the device. Right Atrium: The right atrium is normal in size. Atrial Septum: Intact atrial septum at the start of the case. During the case atrial septostomy was performed resulting in an iatrogenic ASD at the end of the case. Predominant flow is [id number]. Mitral Valve: Normal appearance of the mitral valve. There appears to be a highly variable degree of mitral regurgitation from trace up to at least moderate. There is systolic anterior motion of the mitral valve. There is no evidence for significant mitral stenosis. Aortic Valve: Normal appearance and function of the aortic valve. Trileaflet aortic valve. Pericardium: No pericardial effusion. Aorta: Normal aortic root size. Normal size descending thoracic aorta. Ascending aorta is upper normal in size. CONCLUSIONS: 1. Normal global and regional left ventricular systolic function. Ejection Fraction is estimated to be 70 %. LV wall thickness is within normal limits. A sigmoid septum is present. There is some degree of resting LVOT obstruction which could not be accurately quantitated. 2. Normal right ventricular size. Normal right ventricular systolic function. 3. Intact atrial septum at the start of the case. During the case atrial septostomy was performed resulting in an iatrogenic ASD at the end of the case. Predominant flow is [id number]. 4. Normal appearance of the mitral valve. There appears to be a highly variable degree of mitral regurgitation from trace up to at least moderate. There is systolic anterior motion of the mitral valve. There is no evidence for significant mitral stenosis. 5. No left atrial appendage thrombus at the start of the case. During the case a left atrial appendage occlusion device was deployed in the left atrial appendage. It appears well-seated. There is no color Doppler flow around the device. Electronically Signed By: Geovanny hernandes 12/22/2024 5:10:45 PM CDT Procedure Note Geovanny Harris MD - 12/22/2024 [address] [place] [address] TRANSESOPHAGEAL ECHOCARDIOGRAM Patient Name: KATINA FISH : 1945 (79y 8m) Sex: F Study Date: 12/22/2024 03:23:12 PM Ht(Inch): 65 Wt(Lb): 117 BSA: 1.56 Rn Social Services: DANIELLE Location: 6152 Order Provider: TIGRE TRIANA BMI: 19.47 BP: 145/70 Ref Provider: TIGRE TRIANA PROCEDURES: Transesophageal Echo Report: Transesophageal echocardiogram including 2Dimaging, spectral doppler and color doppler was performed in the cardiaccatheterization laboratory to support a structural procedure. The procedure was monitoredwith automatic blood pressure monitoring, ECG tracings, and pulse oximetry. Sedation wasachieved by anesthesia using Propofol IV. The transesophageal probe was placed in theesophagus posterior to the heart without any complications. The patient toleratedthe procedure well. INDICATIONS: MEASUREMENTS: 2D/MM Value Range Estimated EF 70 % 2D/MM Value Range FINDINGS: BP: Blood pressure: 145/70 mmHg. Left Ventricle: Normal global and regional left ventricular systolicfunction. Ejection Fraction is estimated to be 70 %. LV wall thickness is within normallimits. A sigmoid septum is present. There is some degree of resting LVOT obstruction whichcould not be accurately quantitated. Right Ventricle: Normal right ventricular size. Normal right ventricularsystolic function. Left Atrium: The left atrium is normal in size. LA Appendage: No left atrial appendage thrombus at the start of the case.During the case a left atrial appendage occlusion device was deployed in the left atrialappendage. It appears well-seated. There is no color Doppler flow around the device. Right Atrium: The right atrium is normal in size. Atrial Septum: Intact atrial septum at the start of the case. During thecase atrial septostomy was performed resulting in an iatrogenic ASD at the end of thecase. Predominant flow is [id number]. Mitral Valve: Normal appearance of the mitral valve. There appears to be ahighly variable degree of mitral regurgitation from trace up to at leastmoderate. There is systolic anterior motion of the mitral valve. There is no evidence forsignificant mitral stenosis. Aortic Valve: Normal appearance and function of the aortic valve.Trileaflet aortic valve. Pericardium: No pericardial effusion. Aorta: Normal aortic root size. Normal size descending thoracic aorta.Ascending aorta is upper normal in size. CONCLUSIONS: 1. Normal global and regional left ventricular systolic function. EjectionFraction is estimated to be 70 %. LV wall thickness is within normal limits. A sigmoidseptum is present. There is some degree of resting LVOT obstruction which could notbe accurately quantitated. 2. Normal right ventricular size. Normal right ventricular systolicfunction. 3. Intact atrial septum at the start of the case. 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 4. Normal appearance of the mitral valve. There appears to be a highlyvariable degree of mitral regurgitation from trace up to at least moderate. There is systolicanterior motion of the mitral valve. There is no evidence for significant mitralstenosis. 5. No left atrial appendage thrombus at the start of the case. During thecase a left atrial appendage occlusion device was deployed in the left atrialappendage. It appears well-seated. There is no color Doppler flow around the device. Electronically Signed By: Geovanny hernandes 12/22/2024 5:10:45 PM CDT us Tigre Triana MD CV ECHO PROCEDURES Radha l Result * PERC STACEY CLOSURE W/IMPLANT (WATCHMAN) [id number] (12/22/2024 4:10 PM CDT) Anatomical Region Laterality Modality X-Ray Angiograph y Tigre Triana MD CV ELECTROPHYSIOLOGY [place] OCS Final Result * (ABNORMAL) POC Activated Clotting Time, High Range (12/22/2024 3:56 PM CDT) ACT 390(H) 87 - 138 sec Blood 12/22/2024 3:56 PM CDT 12/22/2024 3:56 PM CDT Tigre Triana MD LAB BLOOD ORDERABLES Fi nal Result [facility] [address] [place] [address] * [place] AN ELECTIVE ENDOTRACHEAL AIRWAY, [place] AN PROCEDURE PLACEHOLDER (12/22/2024 3:41 PM CDT) Narrative Oma Montes De Oca CRNA - 12/22/2024 3:41 PM CDT Oma Montes De Oca CRNA 12/22/2024 3:53 PM Airway Patient location: OR Urgency: elective Date/time: 12/22/2024 3:33 PM Indications for airway management: anesthesia Difficult airway: no Staff: Placed by: Anesthesiologist: Ion Mccollum MD SENIOR SYSTEMS ENGINEER: Oma Montes De Oca CRNA Emergent airway documentation: Risks and benefits discussed: yes Consent obtained: yes Consent given by: patient Airway prep: Preoxygenated: yes Patient position: sniffing Mask difficulty assessment: 2 - vent by mask + OA or adjuvant Spontaneous ventilation during airway: absent Sedation level during airway: GA Final airway details: Final airway type: endotracheal airway Tube type: ETT ETT size: 7.0 mm Cuffed: yes Technique used for successful ETT placement: video laryngoscopy Devices/Methods used in placement: stylet Insertion site: oral Blade type: Sheree Video blade type: Llamas Blade size: 3 Cormack-Lehane (video): grade I - full view of glottis Cuff volume: 7 mL Cuff inflated with: air ETT to teeth: 21 cm Placement verified by: auscultation and CO2 detection Airway secured with: silk tape Number of attempts: 1 Additional comments: No soft tissue damage, no dental damage. Ion Mccollum MD ANESTHESIA ORDERABLES Edited Result - Final * ECG 12 lead (12/22/2024 2:52 PM CDT) 12/22/2024 2:52 PM CDT Narrative [facility] - 12/23/2024 9:32 AM CDT Vent Rate: 67 bpm RR Interval: 889 msec [place] Interval: 231 msec QRS Duration: 110 msec QT Interval: 379 msec QTC Interval: 394 msec P-R-T Kevin: 53 - -54 - 28 degrees IMPRESSION: SINUS RHYTHM WITH FIRST DEGREE AV BLOCK LEFT ANTERIOR FASCICULAR BLOCK [QRS AXIS <= -45, QR IN I, RS IN II] POOR R-WAVE PROGRESSION; POSSIBLE ANTERIOR MYOCARDIAL INFARCTION ABNORMAL ECG Electronically Signed By: Barak Coombs MD [facility] Tigre Triana MD ECG ORDERABLES Final R esult Performing Organization Address City/[facility]/ZIP Co de Phone Number [facility] [employer] [facility] * Type and screen (12/22/2024 1:58 PM CDT) ABO Rh A Negative Timo, indirect Negative [facility] Blood 12/22/2024 1:58 PM CDT 12/22/2024 2:24 PM CDT Narrative [facility] - 12/22/2024 3:14 PM CDT Has the patient had Daratumumab or Isatuximab in the past 6 months?->Unknown Tigre Triana MD LAB BLOOD BANK TEST ORD ERABLES Final Result [facility] [address] [place] [address] * ECG 12 lead (12/10/2024 10:03 AM CDT) Tigre Triana MD ECG ORDERABLES Final R esult * DEVICE CHECK - REMOTE (12/01/2024 10:58 AM CDT) Anatomical Region Laterality Modality Other Narrative 12/15/2024 12:15 PM CDT Octmami LNQ22 Loop Recorder. Dx; Syncope, Tachycardia, Palpitations. DOI 06/15/2022-Fleissner. Mirza. [facility] remote monitoring Routine ILR remote. Normal device function. Battery function-good Presenting rhythm: NSR Medications: Eliquis 5 mg, ASA 81 mg, Plavix 75 mg, diltiazem 120 mg, lisinopril 40 mg, rosuvastatin 20 mg Counters since last scheduled transmission on 10/19/24. --6 Tachy - EGMs demonstrate SVT with the longest episode being 39 seconds in duration --0 Lorne --1 Pause - EGM demonstrates one 4 second pause --2 Symptom - symptom EGMs do not correlate with arrhythmia or ectopy --3 AF - EGM demonstrates AFib with the longest episode lasting 40 minutes. AFib burden 0.2% See scanned report. [facility] remote f/u 01/11/25. Rickey Andrade, RN Todd Cedeno MD CV CARDIAC SERVICES [facility] Final Result * Scanned Labs (10/30/2024 11:53 AM CDT) Historical Provider LAB BLOOD ORDERABLES Radha l Result * CBC with auto differential (10/30/2024) SCRIBED WBC EXTERNAL LAB Comment:4.5-10.0 SCRIBED Hemoglobin EXTERNAL LAB Comment:12-15 SCRIBED Hematocrit EXTERNAL LAB Comment:37-47 SCRIBED Platelets EXTERNAL LAB Comment:150-375 SCRIBED RBC EXTERNAL LAB Comment:4.2-5.4 Blood 10/30/2024 Rosa Cotto NP LAB BLOOD ORDERABLES Final R esult EXTERNAL LAB * DEVICE CHECK - REMOTE (10/19/2024 2:54 PM CDT) Anatomical Region Laterality Modality Other Narrative 10/26/2024 7:59 AM CDT Octmami LNQ22 Loop Recorder. Dx; Syncope, Tachycardia, Palpitations, [...] Last 3 Months Insurance MEDICARE [facility] MEDICARE BLUE CROSS MEDICARE SUPPLEMENT MEDICARE [facility] Advance Directives For more information, please contact: [phone] Documents on File Type Date Recorded Patient Guitar Technician Expl anation ADVANCE DIRECTIVE 08/21/2012 12:00 AM TJ Leger WILL ADVANCE DIRECTIVE 08/21/2012 12:00 AM POWER OF USER EXPERIENCE ARCHITECT FINANCIAL/MEDICAL * Full Code (Latest Code Status on File) Date Activated Date Inactivated Comments 07/14/2024 12:14 PM 07/15/2024 6:47 PM * Full Code Date Activated Date Inactivated Comments 12/04/2022 12:40 AM 12/07/2022 8:03 PM Care Teams Collection Agent Relationship Specialty Start Date End Date Rachel Friend NP [address] [place] [address] PCP - General Family Medicine 11/26/23 Todd Cedeno MD [address] [place] [address] Consulting Physician Cardiology 07/15/24
--- OUTSIDE RECORDS SUMMARY | 2025-01-04 08:38 | XMS_ITS | Clinical Summary ---
Author Organization [facility] [address] [facility] Address [address] [place] [address] Care Team Providers Care Construction Or Leak Gang Laborer Name Role Phone Emily Tejada MD Primary [...] Comments Blood Pressure 132/82 05/31/2022 11:05 AM OIL FIELD LABORER Pulse 100 12/22/2021 12:26 PM CDT Temperature 36.7 C (98.1 F) 01/02/2022 10:54 AM CDT Respiratory Rate 16 01/02/2022 10:54 AM CDT Oxygen Saturation 100% 12/22/2021 12:26 PM CDT Inhaled Oxygen Concentration - - Weight 52.7 kg (116 lb 3.2 oz) 02/05/2023 11:35 AM CDT Height 160 cm (5' 3) 05/31/2022 10:59 AM OIL FIELD LABORER Body Mass Index 20.58 05/31/2022 10:59 AM OIL FIELD LABORER Plan of Treatment Health Maintenance Due Date [...] 01/20/2015, 12/21/2009 Medical Devices Implanted Type Area Managing Director Atlas Device Identifier Shelf Expiration Date Model / Serial / Lot Infuse Protein Kit Lg Ii [id number] - Sna Implanted:Qty: 1 on 12/19/2021 by Biju Littlejohn MD at [facility] N/A: Spine Lumbar [employer] 03/21/2023 [id number] / NA / [id number] Description:CHECKED BY LG ON 12.20.21 REQ#[id number] Stimulan Caso4 Kt 10ml 620-010 - [id number] Implanted:Qty: 1 on 12/19/2021 by Biju Littlejohn MD at [facility] BI[employer]OMPOSITES 10/19/2024 620-010 / / [id number] Description:CHECKED BY LG ON 12.20.21 REQ#[id number] Spacer Catalyft Pl 7mm Xpndble Strt [id number] - [id number] Implanted:Qty: 1 on 12/19/2021 by Biju Littlejohn MD at [facility] N/A: Spine Lumbar [employer] 10/30/2029 [id number] / / [id number] Hemostatic Surgiflo 8ml W/ Thrombin 2994 - Sn/A Implanted:Qty: 1 on 12/19/2021 by Biju Littlejohn MD at [facility] Hemostatic N/A: Spine Lumbar J[employer] 01/19/2023 2994 / N/A / [id number] Hemostatic Surgiflo 8ml W/ Thrombin 2994 - [id number] Implanted:Qty: 1 on 12/19/2021 by Biju Littlejohn MD at [facility] Hemostatic N/A: Spine Lumbar J[employer] 09/19/2022 2994 / / [id number] Cassandra Spacer [id number] Tas 7 Dg Lg 10mm Implanted:Qty: 1 on 12/19/2021 by Biju Littlejohn MD at [facility] Other N/A: Spine Lumbar [employer] 07/04/2024 [id number] / / [id number] Description:1X ADD Cassandra Spacer [id number] Tas 7dg Std 10mm Implanted:Qty: 1 on 12/19/2021 by Biju Littlejohn MD at [facility] Other N/A: Spine Lumbar [employer] [id number] / / [id number] Description:1X ADD Terence Cp4 Str Ti 5.0i804yh [id number] - [id number] Implanted:Qty: 1 on 12/19/2021 by Biju Littlejohn MD at [facility] Terence N/A: Spine Lumbar [employer]K [id number] / / Description:load no: 227 227 05 sterilized: [id number] Screw Cdh 7.5x35mm 5.5/6.0 Mas Cc [id number] - [id number] Implanted:Qty: 3 on 12/19/2021 by Biju Littlejohn MD at [facility] Screw N/A: Spine Lumbar [employer] [id number] / / Description:load no: 227 227 05 sterilized: [id number] Screw Cdh 7.5x40mm 5.5/6.0 Mas Cc [id number] - [id number] Implanted:Qty: 2 on 12/19/2021 by Biju Littlejohn MD at [facility] N/A: Spine Lumbar [employer] [id number] / / Description:load no: 227 227 05 sterilized: [id number] Screw [id number] 5.5 Mas 7.5x25cc Implanted:Qty: 1 on 12/19/2021 by Biju Littlejohn MD at [facility] N/A: Spine Lumbar [employer] 11/10/2027 [id number] / / [id number] Description:1X ADD Screw [id number] Bs Cnmas 8.5x80 T/C Implanted:Qty: 2 on 12/19/2021 by Biju Littlejohn MD at [facility] N/A: Spine Lumbar [employer] 12/19/2021 [id number] / / [id number] Description:1X ADD Screw Endoskeleton 5.5x25mm Tas 5905-5617 - [id number] Implanted:Qty: 3 on 12/19/2021 by Biju Littlejohn MD at [facility] N/A: Spine Lumbar [employer]K [id number] / / Description:load [id number] da te: 12/19/21 YANCI REQ#[id number] Screw Solera 5.5/6.0 Breakoff [id number] - [id number] Implanted:Qty: 12 on 12/19/2021 by Biju Littlejohn MD at [facility] N/A: Spine Lumbar [employer] [id number] / / Description:load no: 227 227 05 sterilized: [id number] Screw Cdh 5.5x45mm 5.5/6.0 Mas Cc [id number] - [id number] Implanted:Qty: 4 on 12/19/2021 by Biju Littlejohn MD at [facility] N/A: Spine Lumbar [employer] [id number] / / Description:load no: 227 227 05 sterilized: [id number] [place] Dbm Dbf 6ml [id number] - [id number] Implanted:Qty: 1 on 12/19/2021 by Biju Littlejohn MD at [facility] N/A: Spine Lumbar [employer] 11/10/2023 [id number] / [id number] / Description:CHECKED BY LG ON 12.20.21 REQ#[id number] [place] Dbm Dbf 6ml [id number] - [id number] Implanted:Qty: 1 on 12/19/2021 by Biju Littlejohn MD at [facility] N/A: Spine Lumbar [employer] 11/10/2023 [id number] / [id number] / Description:CHECKED BY LG ON 12.20.21 REQ#[id number] Cassandra Spacer [id number] Tas 12d Std 12mm Implanted:Qty: 1 on 12/19/2021 by Biju Littlejohn MD at [facility] N/A: Spine Lumbar [employer] [id number] / / [id number] Description:1X ADD Insurance MEDICARE PART A AND B [facility] Advance Directives For more information, please contact: [phone] Documents on File Type Date Recorded Patient Motor Home Electrical Foreman Expl anation Advance Directive Living Will 02/04/2023 10:08 AM Advance Directive POA 05/29/2022 12:52 PM Advance Directive POA 10/18/2021 10:07 AM * Full Code (Latest Code Status on File) Date Activated Date Inactivated Comments 12/19/2021 7:20 PM 12/22/2021 4:17 PM * Full Code Date Activated Date Inactivated Comments 12/19/2021 3:08 PM 12/19/2021 7:20 PM Care Teams Construction Or Leak Gang Laborer Relationship Specialty Start Date End Date Emily Tejada MD PCP - General Family Practice 01/14/20 Jade Bean Cardiovascular Disease 10/10/21
--- OUTSIDE RECORDS SUMMARY | 2025-01-04 08:38 | XMS_ITS | Encounter Summary ---
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 Gender Identity Female 12/12/2018 8:34 AM CDT Sexual Orientation Straight 12/12/2018 8: 34 AM CDT Occupation Industry Job Start Date Job End Date retired Not on file Not on file Not on file documented as of this encounter Plan of Treatment Not on file documented as of this encounter Procedures Procedure Name Priority Date/Time Associated Diagnosis Comments CARDIOLOGY DOCUMENT SCAN 06/15/2024 documented in this encounter Results * Cardiology Document Scan (06/15/2024) Anatomical Region Laterality Modality Other us Provider Scanning CV CARDIAC SERVICES PROCEDURES Final Result documented in this encounter Visit Diagnoses Not on filedocumented in this encounter Care Teams Hotel Valet Attendant Relationship Specialty Start Date End Date Rachel Friend NP [address] [place] [address] PCP - General Family Medicine 11/26/23 Todd Cedeno MD [address] [facility] [address] [place] [address] Consulting Physician Cardiology 07/15/24 documented as of this encounter
--- OUTSIDE RECORDS SUMMARY | 2025-01-04 08:38 | XMS_ITS | Clinical Summary ---
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 Not on file Not on file Not on file Last Filed Vital Signs Vital Sign Reading Time Taken Comments Blood Pressure 148/89 05/09/2022 11:53 AM RFID SYSTEMS ARCHITECT Pulse 93 05/09/2022 11:53 AM RFID SYSTEMS ARCHITECT Temperature 36.6 C (97.8 F) 05/09/2022 11:53 AM RFID SYSTEMS ARCHITECT Respiratory Rate 18 04/20/2022 8:01 AM RFID SYSTEMS ARCHITECT Oxygen Saturation 99% 04/20/2022 8:01 AM RFID SYSTEMS ARCHITECT Inhaled Oxygen Concentration - - Weight 51.9 kg (114 lb 6.4 oz) 05/09/2022 11:53 AM RFID SYSTEMS ARCHITECT Height 160 cm (5' 3) 05/09/2022 11:53 AM RFID SYSTEMS ARCHITECT Body Mass Index 20.27 05/09/2022 11:53 AM RFID SYSTEMS ARCHITECT Plan of Treatment Health Maintenance Due Date Last Done Comments Hepatitis C 1963 Zoster Vaccines (2 of 3) 07/25/2007 05/30/2007 Annual Medicare Wellness Visit 2011 Dexa Scan (General) 2011 DTaP, Tdap and Td Vaccines (2 - Td or Tdap) 08/22/2019 08/21/2009 RSV Immunization or 60+ Years (1 - 1-dose 75+ series) 2021 COVID-19 Vaccine ( season) 2024 07/26/2021, 02/14/2021, 07/08/2020, Additional history exists Pneumococcal [...] to complete this topic Insurance MEDICARE [facility] Care Teams Economics Analyst Relationship Specialty Start Date End Date Rachel Friend FNP PCP - General Nurse Practitioner Family 07/20/21
[2025-01-04 19:00] LABS: Alanine Aminotransferase 22 U/L (6-35); Albumin Level 4.5 g/dL (3.5-5.1); Alkaline Phosphatase 65 U/L (38-126); Anion Gap 7 mmol/L (4-12); Aspartate Amino Transferase 103 U/L (14-36); Bilirubin,Total 0.6 mg/dL (0.2-1.3); Blood Urea Nitrogen 15 mg/dL (7-17); Calcium 9.8 mg/dL (8.4-10.2); Carbon Dioxide 27 mmol/L (22-30); Chloride 98 mmol/L (98-107); Cholesterol 171 mg/dL (0-200); Estimated Glomerular Filt Rate > 60; Glucose 67 mg/dL (65-110); HDL Direct 104 mg/dL; Potassium 4.4 mmol/L (3.4-5.0); Sodium 132 mmol/L (137-145); Total Protein 7.1 g/dL (6.3-8.2); Triglycerides 39 mg/dL (<150)
== END 2025-01-04 08:08 | disposition home or self-care (01) ==
LOC: ANHGOSHLAB 08:07
PROVIDERS: PCP Nurse Practitioner Family; Visit Provider Nurse Practitioner Family
DX: E78.5 Hyperlipidemia, unspecified (principal); I10 Essential (primary) hypertension; E55.9 Vitamin D deficiency, unspecified
CPT/HCPCS: 36415; 80053; 80061; 82306

== ENCOUNTER 2025-01-18 10:56 | Outpatient (CLI) | payer MEDICARE, SELFPAY ==
--- OUTSIDE RECORDS SUMMARY | 2010-04-28 19:00 | XMS_ITS | Continuity of Care Document ---
Author Organization [facility] Address [address] [place] [address] Phone Care Team Providers Care Automotive Tire Worker Name Role Phone Jim Etienne MD Unavailable Unavailable Medications Medication Instructions Dosage Effective Dates (start - stop) Status Comments IPRATROPIUM 0.03% SPRAY 1 TID - Active IPRATROPIUM BROMIDE 21MCG SPRA 1 TID - No Longer Active Advance Directives Directive Yes / No Effective Date File Name No Information Encounters Encounter Description Practice Location Reason(s) For Visit Diagnoses Date Provider Providers Copied on Encounter [facility], [address], [place], [place], [id number], [place] tel:[phone] [facility] No Information [address] Jim[address] [place] [address], [id number] , [place]. tel: [phone] [employer], [address], [place], [place], [id number], tel:[phone] [facility] CHRONIC RHINITISNASAL & SINUS DIS NEC 9 Lowell Fernandez. [address], [id number] , [place]. 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 [address], [place], [place], [id number] . tel: [phone] Family History Family Member Type Diagnosis Age At Onset No Information Payers Payer name Insurance type Covered republican ID Authoriza tion(s) No Information Social History Type Description Quantity Date Captured Comments Sex Female Smoking Status No Information Chief Complaint And Reason For Visit No Information Reason For Referral Reason For Referral No Information History Of Present Illness Encounter Date Complaint History Of Prese nt Illness No Information Functional Status Date Functional Assessmen t No Information Medications Administered Medication Instructions Dosage Effective Dates (start - stop) Status Comments IPRATROPIUM BROMIDE 21MCG SPRA 1 TID - No Longer Active Instructions Date Instruction Additional Infor mation No Information Assessments Type Assessment Date No Information Patient Care Teams Name Effective Dates (start - stop) Status Members No Information
--- OUTSIDE RECORDS SUMMARY | 2015-09-07 08:00 | XMS_ITS | Continuity of Care Document ---
Author Organization [facility] Address [address] [place] [address] Phone Care Team Providers Care Binder Operator Name Role Phone Nabor Ceja MD Unavailable [...] Copied on Encounter OFFICE/OUTPA TIENT VISIT NEW [facility], [address] [facility] [address], [place], [address], tel:[phone] [facility] My back and right ankle hurt alot (chief complaint) Body mass index (BMI) 19 or less, adultLow back painPeroneal tendinitis of right lower extremitySpondylo listhesis at L4-L5 level 6 Brenna Tomlin. [address] [facility] [place], [place], [id number] . tel:[phone] Referring Provider: Tara Hudson, [address] [place], [address] . tel:[phone] Family History Family Member Type Diagnosis Age At Onset Father Problem (finding) hypertension Father Problem (finding) depression Payers Payer name Insurance type Covered green party ID Ronnie andujar(s) Medicare E2 OT [id number] Combined Insurance OT [id number] Social History Type Description Quantity Date Captured [...]
--- OUTSIDE RECORDS SUMMARY | 2025-01-18 11:37 | XMS_ITS | Encounter Summary ---
Author Organization [employer]/[facility] Facility Care Team Providers Care Shoe Treer Name Role Phone Tara Hudson MD Primary Care Provider [phone] Gege Herrera MD Primary Care Provider Rachel Friend [facility] Primary Care Provider [phone] Emily Clements [facility] Primary Care Provider [phone] Rachel Friend [facility] Primary Care Provider [phone] Todd Cedeno MD Unavailable Encounter Details Date Type Department Care Team (Latest Contact Info) Description 01/04/2016 Orders Only [facility]IN[facility] ProviderAlhaji MD [address] [place] [address] Social History Tobacco Use Types Packs/Day Years Used Date Smoking Tobacco: Never Assessed Comments Unknown Sex and Gender Information Value Date Recorded Sex Assigned at Not on file Legal Sex Female 1:32 AM NURSING HOME SOCIAL 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 [facility] Provider Final Res ult * PROCEDURE - RESULT (01/04/2016 12:00 AM CDT) Narrative 01/04/2016 12:00 AM CDT Ordered by an unspecified provider. [facility] Provider Final Res ult documented in this encounter Visit Diagnoses Not on filedocumented in this encounter Care Teams Shoe Treer Relationship Specialty Start Date End Date Tara Hudson MD [address] [address] PCP - General 12/17/16 11/02/19 Gege Herrera MD [address] [address] PCP - General Family Medicine 11/03/19 10/16/20 Rachel Friend NP [address] [address] PCP - General Family Medicine 10/17/20 01/09/23 Emily Clements NP [address] [place] [address] PCP - General Nurse Practitioner 01/10/23 11/25/23 Rachel Friend NP [address] [place] [address] PCP - General Family Medicine 11/26/23 Todd Cedeno MD [address] [place] [address] Consulting Physician Cardiology 07/15/24 documented as of this encounter
--- OUTSIDE RECORDS SUMMARY | 2025-01-18 11:37 | XMS_ITS | Encounter Summary ---
Author Organization [facility] Facility Care Team Providers Care Telephone Technician Name Role Phone aTra Hudson MD Primary Care Provider [phone] Gege Herrera MD Primary Care Provider Rachel Friend TWISTING FRAME FIXER Primary Care Provider [phone] Emily Clements TWISTING FRAME FIXER Primary Care Provider [phone] Rachel Friend TWISTING FRAME FIXER Primary Care Provider [phone] Todd Cedeno MD Unavailable [phone] Encounter Details Date Type Department Care Team (Latest Contact Info) Description 12/02/2017 Orders Only [facility] CLINCONV ProviderAlhaji MD [address] [place] [address] Social History Tobacco Use Types Packs/Day Years Used Date Smoking Tobacco: Never Assessed Comments Unknown Sex and Gender Information Value Date Recorded Sex Assigned at Not on file Legal Sex Female 1:32 AM COLLAR WORKER Gender Identity Female 12/12/2018 8:34 AM [...] on filedocumented in this encounter Care Teams Telephone Technician Relationship Specialty Start Date End Date Tara Hudson MD [address] [facility] [address] [place] [address] PCP - General 12/17/16 11/02/19 Gege Herrera MD [address] [address] PCP - General Family Medicine 11/03/19 10/16/20 Rachel Friend NP [address] [facility] [address] [place] [address] PCP - General Family Medicine 10/17/20 01/09/23 Emily Clements NP [address] [place] [address] PCP - General Nurse Practitioner 01/10/23 11/25/23 Rachel Friend, AIRAM [address] [place] [address] PCP - General Family Medicine 11/26/23 Todd Cedeno MD [address] [place] [address] Consulting Physician Cardiology 07/15/24 documented as of this encounter
--- OUTSIDE RECORDS SUMMARY | 2025-01-18 11:37 | XMS_ITS | Encounter Summary ---
Author Organization [facility] Facility Care Team Providers Care Behavior Clinician Name Role Phone Tara Hudson MD Primary Care Provider [phone] Gege Herrera MD Primary Care Provider Rachel Friend OPERATIONS PROFESSIONAL Primary Care Provider [phone] Emily Clements OPERATIONS PROFESSIONAL Primary Care Provider [phone] Rachel Friend OPERATIONS PROFESSIONAL Primary Care Provider [phone] Todd Cedeno MD Unavailable [phone] Encounter Details Date Type Department Care Team (Latest Contact Info) Description 11/25/2017 Orders Only [facility] CLINCONV ProviderAlhaji MD [address] [place] [address] Social History Tobacco Use Types Packs/Day Years Used Date Smoking Tobacco: Never Assessed Comments Unknown Sex and Gender Information Value Date Recorded Sex Assigned at Not on file Legal Sex Female 1:32 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 Gender Identity Female 12/12/2018 8:34 AM CDT [...] on filedocumented in this encounter Care Teams Behavior Clinician Relationship Specialty Start Date End Date Tara Hudson MD [address] [facility] [address] [place] [address] PCP - General 12/17/16 11/02/19 Gege Herrera MD [address] [address] PCP - General Family Medicine 11/03/19 10/16/20 Rachel Friend NP [address] [facility] [address] [place] [address] PCP - General Family Medicine 10/17/20 01/09/23 Emily Clements NP [address] [place] [address] PCP - General Nurse Practitioner 01/10/23 11/25/23 Rachel Friend NP [address] [place] [address] PCP - General Family Medicine 11/26/23 Todd Cedeno MD [address] [place] [address] Consulting Physician Cardiology 07/15/24 documented as of this encounter
--- OUTSIDE RECORDS SUMMARY | 2025-01-18 11:37 | XMS_ITS | Encounter Summary ---
Author Organization [facility] Facility Care Team Providers Care Sand Car Worker Name Role Phone Tara Hudson MD Primary Care Provider [phone] Gege Herrera MD Primary Care Provider Rachel Friend INTEGRATION SOFTWARE ENGINEER Primary Care Provider [phone] Emily Clements INTEGRATION SOFTWARE ENGINEER Primary Care Provider [phone] Rachel Friend INTEGRATION SOFTWARE ENGINEER Primary Care Provider [phone] Todd Cedeno MD Unavailable [phone] Encounter Details Date Type Department Care Team (Latest Contact Info) Description 02/06/2016 Orders Only [facility]IN[facility] ProviderAlhaji MD [address] [place] [address] Social History Tobacco Use Types Packs/Day Years Used Date Smoking Tobacco: Never Assessed Comments Unknown Sex and Gender Information Value Date Recorded Sex Assigned at Not on file Legal Sex 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 Gender Identity Female 12/12/2018 8:34 AM CDT [...] on filedocumented in this encounter Care Teams Sand Car Worker Relationship Specialty Start Date End Date Tara Hudson MD [address] [address] PCP - General 12/17/16 11/02/19 Gege Herrera MD [address] [address] PCP - General Family Medicine 11/03/19 10/16/20 Rachel Friend NP [address] [facility] [address] [place] [address] PCP - General Family Medicine 10/17/20 01/09/23 Emily Clements NP [address] [place] [address] PCP - General Nurse Practitioner 01/10/23 11/25/23 Rachel Friend, [address] [place] [address] PCP - General Family Medicine 11/26/23 Todd Cedeno MD [address] [place] [address] Consulting Physician Cardiology 07/15/24 documented as of this encounter
--- OUTSIDE RECORDS SUMMARY | 2025-01-18 11:37 | XMS_ITS | Encounter Summary ---
Author Organization [facility] Facility Care Team Providers Care Water Supervisor Name Role Phone Tara Hudson MD Primary Care Provider [phone] Gege Herrera MD Primary Care Provider Rachel Friend CERTIFIED PROFESSIONAL CONTROLLER Primary Care Provider [phone] Emily Clements CERTIFIED PROFESSIONAL CONTROLLER Primary Care Provider [phone] Rachel Friend CERTIFIED PROFESSIONAL CONTROLLER Primary Care Provider [phone] Todd Cedeno MD Unavailable [phone] Encounter Details Date Type Department Care Team (Latest Contact Info) Description 03/05/2016 Orders Only [facility] CLINCONV ProviderAlhaji MD [address] [place] [address] Social History Tobacco Use Types Packs/Day Years Used Date Smoking Tobacco: Never Assessed Comments Unknown Sex and Gender Information Value Date Recorded Sex Assigned at Not on file Legal Sex Female 1:32 AM DENTAL ASSOCIATE Gender Identity Female 12/12/2018 8:34 AM CDT Sexual Orientation Straight 12/12/2018 8: 34 AM CDT documented as of this encounter Plan of Treatment Not on file documented as of this encounter Procedures Procedure Name Priority Date/Time Associated Diagnosis Comments PROCEDURE - RESULT 03/05/2016 12 :00 AM DENTAL ASSOCIATE PROCEDURE - RESULT 03/05/2016 12 :00 AM DENTAL ASSOCIATE documented in this encounter Results * PROCEDURE - RESULT (03/05/2016 12:00 AM DENTAL ASSOCIATE) Narrative 03/05/2016 12:00 AM DENTAL ASSOCIATE Ordered by an unspecified provider. us Historical Provider Final Res ult * PROCEDURE - RESULT (03/05/2016 12:00 AM DENTAL ASSOCIATE) Narrative 03/05/2016 12:00 AM DENTAL ASSOCIATE Ordered by an unspecified provider. us Historical Provider Final Res ult documented in this encounter Visit Diagnoses Not on filedocumented in this encounter Care Teams Water Supervisor Relationship Specialty Start Date End Date Tara Hudson MD [address] [address] PCP - General 12/17/16 11/02/19 Gege Herrera MD [address] [address] PCP - General Family Medicine 11/03/19 10/16/20 Rachel Friend NP [address] [address] PCP - General Family Medicine 10/17/20 01/09/23 Emily Clements NP [address] [place] [address] PCP - General Nurse Practitioner 01/10/23 11/25/23 Rachel Friend, AIRAM [address] [place] [address] PCP - General Family Medicine 11/26/23 Todd Cedeno MD [address] [place] [address] Consulting Physician Cardiology 07/15/24 documented as of this encounter
--- OUTSIDE RECORDS SUMMARY | 2025-01-18 11:37 | XMS_ITS | Encounter Summary ---
Author Organization [facility] Facility Care Team Providers Care Wire Chief Name Role Phone Tara Hudson MD Primary Care Provider [phone] Gege Herrera MD Primary Care Provider Rachel Friend SOA INTEGRATION ARCHITECT Primary Care Provider [phone] Emily Clements SOA INTEGRATION ARCHITECT Primary Care Provider [phone] Rachel Friend SOA INTEGRATION ARCHITECT Primary Care Provider [phone] Todd Cedeno MD Unavailable [phone] Encounter Details Date Type Department Care Team (Latest Contact Info) Description 02/22/2016 Orders Only [facility] CLINCONV ProviderAlhaji MD [address] [place] [address] Social History Tobacco Use Types Packs/Day Years Used Date Smoking Tobacco: Never Assessed Comments Unknown Sex and Gender Information Value Date Recorded Sex Assigned at Not on file Legal Sex Female 1:32 AM HOMEBIRTH MIDWIFE Gender Identity Female 12/12/2018 8:34 AM CDT [...] AM CDT Ordered by an unspecified provider. [facility] Provider Final Res ult * PROCEDURE - RESULT (02/22/2016 12:00 AM CDT) Narrative 02/22/2016 12:00 AM CDT Ordered by an unspecified provider. [facility] Provider Final Res ult documented in this encounter Visit Diagnoses Not on filedocumented in this encounter Care Teams Wire Chief Relationship Specialty Start Date End Date Tara Hudson MD [address] [address] PCP - General 12/17/16 11/02/19 Gege Herrera MD [address] [address] PCP - General Family Medicine 11/03/19 10/16/20 Rachel Friend NP [address] [address] PCP - General Family Medicine 10/17/20 01/09/23 Emily Clements NP [address] [place] [address] PCP - General Nurse Practitioner 01/10/23 11/25/23 Rachel Friend NP [address] [place] [address] PCP - General Family Medicine 11/26/23 Todd Cedeno MD [address] [place] [address] Consulting Physician Cardiology 07/15/24 documented as of this encounter
--- OUTSIDE RECORDS SUMMARY | 2025-01-18 11:38 | XMS_ITS | Clinical Summary ---
Author Organization [facility] Address [address] [place] [address] Care Team Providers Care Technical Sales Representative Name Role Phone Tara Hudson MD Primary Care Provider [phone] Source Comments [facility],non-owned Affiliates and Associated Physician Practices is amultiple site organization consisting of ambulatory clinics and hospital sitesin [place], [place], [place] and [place]. This disclosure is being madepursuant to the Care Everywhere program and may not contain all information available regarding this patient. Last updated 18.[facility] Allergies Active Allergy Reactions Criticality Noted Date [...] on file Legal Sex Female 5:57 PM SUPERVISOR SHOP Gender Identity Not on file Sexual Orientation Not on file Last Filed Vital Signs Vital Sign Reading Time Taken Comments Blood Pressure 128/72 05/27/2018 12:26 PM SUPERVISOR SHOP Pulse 80 05/27/2018 12:26 PM SUPERVISOR SHOP Temperature 37 C (98.6 F) 05/27/2018 12:26 PM SUPERVISOR SHOP Respiratory Rate 16 05/27/2018 12:26 PM SUPERVISOR SHOP Oxygen Saturation 100% 05/27/2018 12:26 PM SUPERVISOR SHOP Inhaled Oxygen Concentration - - Weight 52.2 kg (115 lb) 05/27/2018 12:26 PM SUPERVISOR SHOP Height 162.6 cm (5' 4) 05/27/2018 12:26 PM SUPERVISOR SHOP Body Mass Index 19.74 05/27/2018 12:26 PM SUPERVISOR SHOP Plan of Treatment Health Maintenance Due Date [...] topic Insurance MEDICARE MEDICARE MEDICARE Care Teams Technical Sales Representative Relationship Specialty Start Date End Date Tara Hudson MD [address] [place] [address] [place] [address] PCP - General 12/12/12
--- OUTSIDE RECORDS SUMMARY | 2025-01-18 11:38 | XMS_ITS | Encounter Summary ---
Author Organization [facility] Address [address] [place] [address] Care Team Providers Care Box Office Manager Name Role Phone Rachel Friend NP Primary Care Provider [phone] Todd Cedeno MD Unavailable [phone] Encounter Details Date Type Department Care Team (Late st Contact Info) Description 06/15/2024 Orders Only [facility] Health Information Management [address] [place] [address] Scanning, Provider Social History Tobacco Use [...] on file Legal Sex Female 1:32 AM [place]IP SUPERVISOR Gender Identity Female 12/12/2018 8:34 AM CDT [...] on filedocumented in this encounter Care Teams Box Office Manager Relationship Specialty Start Date End Date Rachel Friend NP [address] [place] [address] PCP - General Family Medicine 11/26/23 Todd Cedeno MD [address] [facility] [address] [place] [address] Consulting Physician Cardiology 07/15/24 documented as of this encounter
--- OUTSIDE RECORDS SUMMARY | 2025-01-18 11:38 | XMS_ITS | Clinical Summary ---
Author Organization [id number] Address [address] [place] [address] Care Team Providers Care Slate Roofer Name Role Phone Emily Tejada MD Primary [...] Comments Blood Pressure 132/82 05/31/2022 11:05 AM COMPOSITION STONE APPLICATOR Pulse 100 12/22/2021 12:26 PM CDT Temperature 36.7 C (98.1 F) 01/02/2022 10:54 AM CDT Respiratory Rate 16 01/02/2022 10:54 AM CDT Oxygen Saturation 100% 12/22/2021 12:26 PM CDT Inhaled Oxygen Concentration - - Weight 52.7 kg (116 lb 3.2 oz) 02/05/2023 11:35 AM CDT Height 160 cm (5' 3) 05/31/2022 10:59 AM COMPOSITION STONE APPLICATOR Body Mass Index 20.58 05/31/2022 10:59 AM COMPOSITION STONE APPLICATOR Plan of Treatment Health Maintenance Due Date [...] 01/20/2015, 12/21/2009 Medical Devices Implanted Type Area Prop Maker Device Identifier Shelf Expiration Date Model / Serial / Lot Infuse Protein Kit Lg Ii [id number] - Sna Implanted:Qty: 1 on 12/19/2021 by Biju Littlejohn MD at [facility] N/A: Spine Lumbar [employer] SOFAMOR DANEK 03/21/2023 [id number] / NA / [id number] Description:CHECKED BY LG ON 12.20.21 REQ#[id number] Stimulan Caso4 Kt 10ml 620-010 - [id number] Implanted:Qty: 1 on 12/19/2021 by Biju Littlejohn MD at [facility] [employer] 10/19/2024 620-010 / / [id number] Description:CHECKED BY LG ON 12.20.21 REQ#[id number] Spacer Catalyft Pl 7mm Xpndble Strt [id number] - [id number] Implanted:Qty: 1 on 12/19/2021 by Biju Littlejohn MD at [facility] N/A: Spine Lumbar [employer] SOFAMOR DANEK 10/30/2029 [id number] / / [id number] Hemostatic Surgiflo 8ml W/ Thrombin 2994 - Sn/A Implanted:Qty: 1 on 12/19/2021 by Biju Littlejohn MD at [facility] Hemostatic N/A: Spine Lumbar [employer] 01/19/2023 2994 / N/A / [id number] Hemostatic Surgiflo 8ml W/ Thrombin 2994 - [id number] Implanted:Qty: 1 on 12/19/2021 by Biju Littlejohn MD at [facility] Hemostatic N/A: Spine Lumbar [employer] 09/19/2022 2994 / / [id number] Cassandra Spacer [id number] Tas 7 Dg Lg 10mm Implanted:Qty: 1 on 12/19/2021 by Biju Littlejohn MD at [facility] Other N/A: Spine Lumbar [employer] 07/04/2024 [id number] / / [id number] Description:1X ADD Cassandra Spacer [id number] Tas 7dg Std 10mm Implanted:Qty: 1 on 12/19/2021 by Biju Littlejohn MD at [facility] Other N/A: Spine Lumbar [employer] 8450-9739-N / / [id number] Description:1X ADD Terence Cp4 Str Ti 5.3c920lt [id number] - [id number] Implanted:Qty: 1 on 12/19/2021 by Biju Littlejohn MD at [facility] Terence N/A: Spine Lumbar [employer] [id number] / / Description:load no: 227 227 05 sterilized: [id number] Screw Cdh 7.5x35mm 5.5/6.0 Mas Cc [id number] - [id number] Implanted:Qty: 3 on 12/19/2021 by Biju Littlejohn MD at [facility] Screw N/A: Spine Lumbar [employer] [id number] / / Description:load no: 227 227 05 sterilized: [id number] Screw Cdh 7.5x40mm 5.5/6.0 Mas Cc [id number] - [id number] Implanted:Qty: 2 on 12/19/2021 by Biju Littlejohn MD at [facility] N/A: Spine Lumbar [employer] [id number] / / Description:load no: 227 227 05 sterilized: [id number] Screw [id number] 5.5 Mas 7.5x25cc Implanted:Qty: 1 on 12/19/2021 by Biju Littlejohn MD at [facility] N/A: Spine Lumbar [employer] 11/10/2027 [id number] / / [id number] Description:1X ADD Screw [id number] Bs Cnmas 8.5x80 T/C Implanted:Qty: 2 on 12/19/2021 by Biju Littlejohn MD at [facility] N/A: Spine Lumbar [employer] 12/19/2021 [id number] / / [id number] Description:1X ADD Screw Endoskeleton 5.5x25mm Tas 6819-0044 - [id number] Implanted:Qty: 3 on 12/19/2021 by Biju Littlejohn MD at [facility] N/A: Spine Lumbar [employer] [id number] / / Description:load [id number] da te: 12/19/21 YANCI REQ#[id number] Screw Solera 5.5/6.0 Breakoff [id number] - [id number] Implanted:Qty: 12 on 12/19/2021 by Biju Littlejohn MD at [facility] N/A: Spine Lumbar [employer] [id number] / / Description:load no: 227 227 05 sterilized: [id number] Screw Cdh 5.5x45mm 5.5/6.0 Mas Cc [id number] - [id number] Implanted:Qty: 4 on 12/19/2021 by Biju Littlejohn MD at [facility] N/A: Spine Lumbar [employer] [id number] / / Description:load no: 227 227 05 sterilized: [id number] [place] Dbm Dbf 6ml [id number] - [id number] Implanted:Qty: 1 on 12/19/2021 by Biju Littlejohn MD at [facility] N/A: Spine Lumbar [employer] 11/10/2023 [id number] / [id number] / Description:CHECKED BY LG ON 12.20.21 REQ#[id number] [place] Dbm Dbf 6ml [id number] - [id number] Implanted:Qty: 1 on 12/19/2021 by Biju Littlejohn MD at [facility] N/A: Spine Lumbar [employer] 11/10/2023 [id number] / [id number] / Description:CHECKED BY LG ON 12.20.21 REQ#[id number] Cassandra Spacer [id number] Tas 12d Std 12mm Implanted:Qty: 1 on 12/19/2021 by Biju Littlejohn MD at [facility] N/A: Spine Lumbar [employer] [id number] / / [id number] Description:1X ADD Insurance MEDICARE PART A AND B [facility] Advance Directives For more information, please contact: [phone] Documents on File Type Date Recorded Patient Fish Smoker Expl anation Advance Directive Living Will 02/04/2023 10:08 AM Advance Directive POA 05/29/2022 12:52 PM Advance Directive POA 10/18/2021 10:07 AM * Full Code (Latest Code Status on File) Date Activated Date Inactivated Comments 12/19/2021 7:20 PM 12/22/2021 4:17 PM * Full Code Date Activated Date Inactivated Comments 12/19/2021 3:08 PM 12/19/2021 7:20 PM Care Teams Slate Roofer Relationship Specialty Start Date End Date Emily Tejada MD PCP - General Family Practice 01/14/20 Jade Bean Cardiovascular Disease 10/10/21
--- OUTSIDE RECORDS SUMMARY | 2025-01-18 11:38 | XMS_ITS | Data Portability ---
[facility] Organization [facility] Address [address] [place] [address] Assessment No assessment recorded. Plan of Treatment Reminders Order Date Submit Date Provider Last Modified By Organization Details Last Modified Time Details Appointments None recorde d. Lab BMP, serum or plasma 2018 [facility], [address], [address], [place], [address], 9 03:46:46 lipid panel, serum 2018 019 [facility], [address], [address], [place], [address], 9 03:46:45 AST/SGO T (aspart ate aminotr ansfera se), serum or plasma 2018 019 [facility], [address], [address], [place], [address], 9 03:46:46 lipid panel, serum 2017 018 [facility], [address], [address], [place], [address], 8 12:34:54 CMP, serum or plasma 2017 018 [facility], [address], [place], [address], 8 12:34:55 CBC w/ auto diff [address] [facility], [address], [address], [place], [address], 8 12:34:55 TSH, serum or plasma [address] [facility], [address], [address], [place], [address], 8 12:34:56 C-react vickie protein , quantit ative, serum or plasma 2017 [address] [place] [facility], [address], [address], [place], [address], 8 12:34:56 BMP, serum or plasma 2016 [address] [place] [address] [facility], [address], [address], [place], [address], 7 06:23:16 lipid panel, serum [address] [facility], [address], [address], [place], [address], 7 06:23:16 AST/SGO T (aspart ate aminotr ansfera se), serum or plasma [address] [facility], [address], [address], [place], [address], 7 06:23:16 Referral hand surgeon refer l - Please contact patient for appt- patient gone from 9 through 12/05/19 19 2018 019 deandre Wong MD, [address] [facility] , [address], [place], [address], 9 10:59:33 hand surgeon referra bull - establi shed patient ; appt schedul ed 2017 018 TEJAL Wong MD, [address] [facility] , [address], [place], [address], 8 17:20:49 Procedures destruc tion of benign lesions (PROC) 2016 017 wandres Not available 7 15:20:01 Surgeries None recorde d. [facility] [address], [address], [place], [address], 9 09:24:08 MAMMO, screeni ng, digital , bilater al 2016 017 thoskinsma Not available 7 10:31:25 Medication Orders diclofe nac sodium 50 mg tablet, delayed release 2018 019 INTERFACE [facility], [facility] [place], [address], 9 11:55:06 methoca rbamol 750 mg tablet 2018 019 [address], [address] [place], [address], 9 13:52:37 lisinop ril 10 mg tablet 2018 019 INTERFACE [facility], [facility] [place], [address], 9 11:55:07 meclizi ne 25 mg tablet 2017 018 [address] [place], [address], 9 11:53:14 diclofe nac sodium 50 mg tablet, delayed release 2017 018 INTERFACE [facility], [facility], [place], [address], 8 13:50:12 flutica sone propion ate 50 mcg/act uation nasal spray,s uspensi on 2017 018 INTERFACE [facility]3259, [address] [place], [address], 8 13:58:13 lisinop ril 10 mg tablet 2017 018 INTERFACE [facility], [facility] [place], [address], 8 13:50:11 diclofe nac sodium 50 mg tablet, delayed release 2016 017 INTERFACE [facility] [address], [place], [address], 7 11:22:41 flutica sone propion ate 50 mcg/act uation nasal spray,s uspensi on 2016 017 [facility], [address], [place], [id number], 8 12:51:05 lisinop ril 10 mg tablet 2016 017 INTERFACE [facility] ([facility]), [address], [place], [address], 7 11:22:40 diclofe nac sodium 50 mg tablet, delayed release 2016 017 INTERFACE [facility] ([facility]), [address], [place], [address], 7 11:55:36 lisinop ril 10 mg tablet 2016 017 INTERFACE [facility] ([facility]), [address], [address], [place], [address], 7 11:55:33 Patient TargetsNo targets recorded. Patient Instructions Encounter Date Encounter Id Patient Instructions Last Modified By Organization Details Last Modified Time 05/01/2016 [id number] high blood pressure: care instructions lleelpn Not available 05/01/2016 12:06:33 learning about high blood pressure lleelpn Not available 05/01/2016 12:06:33 11/08/2016 [id number] seborrheic keratosis: care instructions ssadlowskima Not available 11/08/2016 14:47:13 learning about breast cancer screening lenglema Not available 11/08/2016 11:25:15 managing your allergies: care instructions lenglema Not available 11/08/2016 11:25:15 seasonal allergies: care instructions lenglema Not available 11/08/2016 11:25:15 10/31/2017 [id number] high blood pressure: care instructions Not available 10/31/2017 13:50:08 learning about high blood pressure Not available 10/31/2017 13:50:08 11/10/2018 [id number] back care and preventing injuries: care instructions [...] total 206 mg/dL <200 high Not Available [facility] [address] [place], [address], 02/06/2017 06:23:15 02/06/20 17 02/06/2017 lipid panel , serum HDL cholesterol 88 mg/dL >50 normal Not Available [facility] [address], [address], 02/06/2017 06:23:15 02/06/20 17 02/06/2017 lipid panel , serum triglyceride s 67 mg/dL <150 normal Not Available [address], [address], 02/06/2017 06:23:15 02/06/20 17 02/06/2017 lipid panel , serum LDL-choleste rol 103 mg/dL _(radha c) high Refer ence range : <100 Francisco able range <100 mg/dL for patie nts with CHD or diabe rylee and <70 mg/dL for diabe tic patie nts with known heart disea se. LDL-C is now calcu lated using the Celeste [facility] jaiu bernie n, which is a valid ated novel metho d provi toney abraham r accur acy than the Fried zeeshan equat ion in the estim ation of LDL-C . Celeste beltran SS et al. MADHURI. 2013; 310(1 9): 2061- 2068 (http ://ed ucati on.MySQL. Mirantis/f aq/FA Q164) Not Available [address], [address], 02/06/2017 06:23:15 02/06/20 17 02/06/2017 lipid panel , serum chol/HDLC ratio 2.3 (calc ) <5.0 normal Not Available [address], [address], 02/06/2017 06:23:15 02/06/2002/06/2017 lipid panel , serum non HDL cholesterol 118 mg/dL _(radha c) <130 normal For patie nts with diabe rylee plus 1 major ASCVD risk facto r, treat ing to a non-H DL-C goal of <100 mg/dL (LDL- C of <70 mg/dL ) is consi dered a thera pemiri c mikkio n. Not Available [address] [place], [address], 02/06/2017 06:23:15 02/06/20 17 02/06/2017 AST/S GOT (aspa rtate amino trans feras e), serum or plasm a AST 19 U/L 10-35 normal Not Available [address] [address] [place], [address], 02/06/2017 06:23:16 02/06/20 17 02/06/2017 BMP, serum or plasm a glucose 94 mg/dL 65-99 normal Fasti ng refer ence inter adilene Not Available [address], [address], 02/06/2017 06:23:16 02/06/20 17 02/06/2017 BMP, serum or plasm a urea nitrogen (BUN) 13 mg/dL 7-25 normal Not Available [address], [address], 02/06/2017 06:23:16 02/06/20 17 02/06/2017 BMP, serum or plasm a creatinine 0.59 mg/dL 0.60-0 .93 low For patie nts >49 years of age, the refer ence limit for Creat inine is appro ximat marilou 13% highe r for peopl e ident ified as Afric an-Am rosmery n. Not Available [address], [address], 02/06/2017 06:23:16 02/06/20 17 02/06/2017 BMP, serum or plasm a eGFR non-afr. [place]onean 93 mL/mi n/1.7 3m2 > or = 60 normal Not Available [address], [address], 02/06/2017 06:23:16 02/06/20 17 02/06/2017 BMP, serum or plasm a eGFR 108 mL/mi n/1.7 3m2 > or = 60 normal Not Available [address], [address], 02/06/2017 06:23:16 02/06/20 17 02/06/2017 BMP, serum or plasm a BUN/creatini ne ratio 22 (calc ) 6-22 normal Not Available [address], [address], 02/06/2017 06:23:16 02/06/20 17 02/06/2017 BMP, serum or plasm a sodium 133 mmol/ L 135-14 6 low Not Available [address], [address], 02/06/2017 06:23:16 02/06/20 17 02/06/2017 BMP, serum or plasm a potassium 4.6 mmol/ L 3.5-5. 3 normal Not Available [address], [address], 02/06/2017 06:23:16 02/06/2002/06/2017 BMP, serum or plasm a chloride 97 mmol/ L 98-110 low Not Available [address], [address], 02/06/2017 06:23:16 02/06/20 17 02/06/2017 BMP, serum or plasm a carbon dioxide 29 mmol/ L 20-31 normal Not Available [address], [address], 02/06/2017 06:23:16 02/06/20 17 02/06/2017 BMP, serum or plasm a calcium 9.7 mg/dL 8.6-10 .4 normal Not Available [address], [address], 02/06/2017 06:23:16 02/11/20 18 02/11/2018 lipid panel , serum cholesterol, total 209 mg/dL <200 high Not Available [address], [address], 02/11/2018 12:34:54 02/11/20 18 02/11/2018 lipid panel , serum HDL cholesterol 87 mg/dL >50 normal Not Available [facility] [place] [address], [address], 02/11/2018 12:34:54 02/11/20 18 02/11/2018 lipid panel , serum triglyceride s 105 mg/dL <150 normal Not Available [address], [address], 02/11/2018 12:34:54 02/11/20 18 02/11/2018 lipid panel [...] 2061- 2068 (http ://ed ucati on.Qu Gustavo IPDIA. com/f aq/FA Q164) Not Available [address], [address], 02/11/2018 12:34:54 02/11/20 18 02/11/2018 lipid panel , serum chol/HDLC ratio 2.4 (calc ) <5.0 normal Not Available [address], [address], 02/11/2018 12:34:54 02/11/20 18 02/11/2018 lipid panel , serum non HDL cholesterol 122 mg/dL _(radha c) <130 normal For patie nts with diabe rylee plus 1 major ASCVD risk facto r, treat ing to a non-H DL-C goal of <100 mg/dL (LDL- C of <70 mg/dL ) is melanie kayeo n. Not Available [address] [address] [place], [address], 02/11/2018 12:34:54 02/11/20 18 02/11/2018 CMP, serum or plasm a glucose 90 mg/dL 65-139 normal Non-f astin g refer ence inter adilene Not Available [facility] [address] [address] [address], [place], [address], 02/11/2018 12:34:55 02/11/20 18 02/11/2018 CMP, serum or plasm a urea nitrogen (BUN) 17 mg/dL 7-25 normal Not Available [facility] [address] [address] [place], [address], 02/11/2018 12:34:55 02/11/2002/11/2018 CMP, serum or plasm a creatinine 0.60 mg/dL 0.60-0 .93 normal For patie nts >49 years of age, the refer ence limit for Creat inine is appro ximat marilou 13% highe r for peopl e ident ified as Afric an-Am rosmeyr n. Not Available [facility] [address] [address] [place], [address], 02/11/2018 12:34:55 02/11/20 18 02/11/2018 CMP, serum or plasm a eGFR non-afr. [place] 92 mL/mi n/1.7 3m2 > or = 60 normal Not Available [facility] [address] [address] [place], [address], 02/11/2018 12:34:55 02/11/20 18 02/11/2018 CMP, serum or plasm a eGFR 106 mL/mi n/1.7 3m2 > or = 60 normal Not Available [facility] [address] [address] [place], [address], 02/11/2018 12:34:55 02/11/20 18 02/11/2018 CMP, serum or plasm a BUN/creatini ne ratio NOT APPLIC ABLE (calc ) 6-22 Not Available [address], [address], 02/11/2018 12:34:55 02/11/20 18 02/11/2018 CMP, serum or plasm a sodium 133 mmol/ L 135-14 6 low Not Available [address], [address], 02/11/2018 12:34:55 02/11/20 18 02/11/2018 CMP, serum or plasm a potassium 4.7 mmol/ L 3.5-5. 3 normal Not Available [address], [address], 02/11/2018 12:34:55 02/11/20 18 02/11/2018 CMP, serum or plasm a chloride 95 mmol/ L 98-110 low Not Available [address], [address], 02/11/2018 12:34:55 02/11/20 18 02/11/2018 CMP, serum or plasm a carbon dioxide 27 mmol/ L 20-32 normal Not Available [address], [address], 02/11/2018 12:34:55 02/11/20 18 02/11/2018 CMP, serum or plasm a calcium 9.8 mg/dL 8.6-10 .4 normal Not Available [facility] [address], [address], 02/11/2018 12:34:55 02/11/20 18 02/11/2018 CMP, serum or plasm a protein, total 7.2 g/dL 6.1-8. 1 normal Not Available [facility] [address], [address], 02/11/2018 12:34:55 02/11/20 18 02/11/2018 CMP, serum or plasm a albumin 4.6 g/dL 3.6-5. 1 normal Not Available [address], [address], 02/11/2018 12:34:55 02/11/20 18 02/11/2018 CMP, serum or plasm a globulin 2.6 g/dL_ (calc ) 1.9-3. 7 normal Not Available [address], [address], 02/11/2018 12:34:55 02/11/20 18 02/11/2018 CMP, serum or plasm a albumin/glob ulin ratio 1.8 (calc ) 1.0-2. 5 normal Not Available [address], [address], 02/11/2018 12:34:55 02/11/20 18 02/11/2018 CMP, serum or plasm a bilirubin, total 0.7 mg/dL 0.2-1. 2 normal Not Available [address], [address], 02/11/2018 12:34:55 02/11/20 18 02/11/2018 CMP, serum or plasm a alkaline phosphatase 64 U/L 33-130 normal Not Available [address], [address], 02/11/2018 12:34:55 02/11/20 18 02/11/2018 CMP, serum or plasm a AST 27 U/L 10-35 normal Not Available [address], [address], 02/11/2018 12:34:55 02/11/20 18 02/11/2018 CMP, serum or plasm a ALT 20 U/L 6-29 normal Not Available [address], [address], 02/11/2018 12:34:55 02/11/20 18 02/11/2018 CBC w/ auto diff white blood cell count 6.0 thous and/u L 3.8-10 .8 normal Not Available [address], [address], 02/11/2018 12:34:55 02/11/20 18 02/11/2018 CBC w/ auto diff red blood cell count 4.45 pollo on/uL 3.80-5 .10 normal Not Available [address], [address], 02/11/2018 12:34:55 02/11/20 18 02/11/2018 CBC w/ auto diff hemoglobin 14.3 g/dL 11.7-1 5.5 normal Not Available [address], [address], 02/11/2018 12:34:55 02/11/20 18 02/11/2018 CBC w/ auto diff hematocrit 42.2 % 35.0-4 5.0 normal Not Available [address], [address], 02/11/2018 12:34:55 02/11/20 18 02/11/2018 CBC w/ auto diff MCV 94.8 fL 80.0-1 00.0 normal Not Available [address], [address], 02/11/2018 12:34:55 02/11/20 18 02/11/2018 CBC w/ auto diff MCH 32.1 pg 27.0-3 3.0 normal Not Available [address], [address], 02/11/2018 12:34:55 02/11/20 18 02/11/2018 CBC w/ auto diff MCHC 33.9 g/dL 32.0-3 6.0 normal Not Available [address], [address], 02/11/2018 12:34:55 02/11/20 18 02/11/2018 CBC w/ auto diff RDW 11.7 % 11.0-1 5.0 normal Not Available [address], [address], 02/11/2018 12:34:55 02/11/20 18 02/11/2018 CBC w/ auto diff platelet count 301 thous and/u L 140-40 0 normal Not Available [address], [address], 02/11/2018 12:34:55 02/11/2002/11/2018 CBC w/ auto diff MPV 9.9 fL 7.5-12 .5 normal Not Available [address], [address], 02/11/2018 12:34:55 02/11/2002/11/2018 CBC w/ auto diff absolute neutrophils 3660 cells /uL 1500-7 800 normal Not Available [address], [address], 02/11/2018 12:34:55 02/11/20 18 02/11/2018 CBC w/ auto diff absolute lymphocytes 1422 cells /uL 850-39 00 normal Not Available [address], [address], 02/11/2018 12:34:55 02/11/20 18 02/11/2018 CBC w/ auto diff absolute monocytes 528 cells /uL 200-95 0 normal Not Available [address], [address], 02/11/2018 12:34:55 02/11/20 18 02/11/2018 CBC w/ auto diff absolute eosinophils 330 cells /uL 15-500 normal Not Available [address], [address], 02/11/2018 12:34:55 02/11/2002/11/2018 CBC w/ auto diff absolute basophils 60 cells /uL 0-200 normal Not Available [address], [address], 02/11/2018 12:34:55 02/11/2002/11/2018 CBC w/ auto diff neutrophils 61 % normal Not Available [address], [address], 02/11/2018 12:34:55 02/11/2002/11/2018 CBC w/ auto diff lymphocytes 23.7 % normal Not Available [address], [address], 02/11/2018 12:34:55 02/11/2002/11/2018 CBC w/ auto diff monocytes 8.8 % normal Not Available [address], [address], 02/11/2018 12:34:55 02/11/2002/11/2018 CBC w/ auto diff eosinophils 5.5 % normal Not Available [address], [address], 02/11/2018 12:34:55 02/11/2002/11/2018 CBC w/ auto diff basophils 1.0 % normal Not Available [address], [address], 02/11/2018 12:34:55 02/11/2002/11/2018 C-amadeo ctive prote in, quant itati ve, serum or plasm a C-reactive protein 0.7 mg/L <8.0 normal Not Available [address], [address], 02/11/2018 12:34:56 02/11/2002/11/2018 TSH, serum or plasm a TSH 3.66 mIU/L 0.40-4 .50 normal Not Available [address], [address], 02/11/2018 12:34:56 02/12/2002/12/2019 lipid panel , serum cholesterol, total 222 mg/dL <200 high Not Available [address], [address], 02/12/2019 03:46:45 02/12/2002/12/2019 lipid panel , serum HDL cholesterol 83 mg/dL >50 normal Not Available [facility] [place] [address], [address], 02/12/2019 03:46:45 02/12/2002/12/2019 lipid panel , serum triglyceride s 94 mg/dL <150 normal Not Available [address], [address], 02/12/2019 03:46:45 02/12/2002/12/2019 lipid panel , serum [...] chan tics. com/f aq/FA Q164) Not Available [facility] [address] [address] [place], [address], 02/12/2019 03:46:45 02/12/2002/12/2019 lipid panel , serum chol/HDLC ratio 2.7 (calc ) <5.0 normal Not Available [address], [address], 02/12/2019 03:46:45 02/12/2002/12/2019 lipid panel , serum non HDL cholesterol 139 mg/dL _(radha c) <130 high For patie nts with diabe rylee plus 1 major ASCVD risk facto r, treat ing to a non-H DL-C goal of <100 mg/dL (LDL- C of <70 mg/dL ) is consi dered a thera peuti c optio n. Not Available [address], [address], 02/12/2019 03:46:45 02/12/2002/12/2019 AST/S GOT (aspa rtate amino trans feras e), serum or plasm a AST 17 U/L 10-35 normal Not Available [address], [address], 02/12/2019 03:46:45 02/12/2002/12/2019 BMP, serum or plasm a glucose 84 mg/dL 65-99 normal Fasti ng refer ence inter adilene Not Available [address], [address], 02/12/2019 03:46:46 02/12/2002/12/2019 BMP, serum or plasm a urea nitrogen (BUN) 14 mg/dL 7-25 normal Not Available [address], [address], 02/12/2019 03:46:46 02/12/2002/12/2019 BMP, serum or plasm a creatinine 0.59 mg/dL 0.60-0 .93 low For patie nts >49 years of age, the refer ence limit for Creat inine is appro ximat marilou 13% highe r for peopl e ident ified as Afric an-Am rosmery n. Not Available [address] [address] [place], [address], 02/12/2019 03:46:46 02/12/2002/12/2019 BMP, serum or plasm a eGFR non-afr. [place] 92 mL/mi n/1.7 3m2 > or = 60 normal Not Available [address] [address] [place], [address], 02/12/2019 03:46:46 02/12/2002/12/2019 BMP, serum or plasm a eGFR 106 mL/mi n/1.7 3m2 > or = 60 normal Not Available [address], [address], 02/12/2019 03:46:46 02/12/2002/12/2019 BMP, serum or plasm a BUN/creatini ne ratio 24 (calc ) 6-22 high Not Available [address], [address], 02/12/2019 03:46:46 02/12/2002/12/2019 BMP, serum or plasm a sodium 136 mmol/ L 135-14 6 normal Not Available [address] [address] [place], [address], 02/12/2019 03:46:46 02/12/2002/12/2019 BMP, serum or plasm a potassium 4.6 mmol/ L 3.5-5. 3 normal Not Available [facility] [address] [address] [place], [address], 02/12/2019 03:46:46 02/12/2002/12/2019 BMP, serum or plasm a chloride 99 mmol/ L 98-110 normal Not Available [address] [address] [place], [address], 02/12/2019 03:46:46 02/12/2002/12/2019 BMP, serum or plasm a carbon dioxide 29 mmol/ L 20-32 normal Not Available [facility] [address] [place], [address], 02/12/2019 03:46:46 02/12/20 19 02/12/2019 BMP, serum or plasm a calcium 9.4 mg/dL 8.6-10 .4 normal Not Available [facility] [address] [address], [place], [address], 02/12/2019 03:46:46 05/28/19 17 05/28/2016 XR, lumba r spine No observ ation record ed. [email or web address] Not Available 2016 22:17:17 02/01/20 17 01/31/2017 MAMMO , scree katerina, digit al, bilat eral No observ ation record ed. [facility] (Imaging) [address], [place], [address], 02/04/2017 17:27:11 02/06/20 17 01/31/2017 MAMMO , scree katerina, digit al, bilat eral, w/ CAD No observ ation record ed. [facility] Not Available 2016 21:20:18 02/11/20 18 02/10/2018 MAMMO , scree katerina, bilat eral No observ ation record ed. [address] (Imaging) [address], [place], [address], 02/10/2018 19:00:20 11/29/19 19 11/21/2018 DEXA No observ ation record ed. [email or web address] n [facility] [address], [place], [address], 11/28/2018 16:57:21 12/20/19 19 12/19/2018 XR, elbow , 3 or more view No observ ation record ed. [address], [place], [address], 12/22/2018 18:22:19 01/17/20 19 01/16/2019 XR, elbow No observ ation record ed. [email or web address] [address] [place], [id number], 01/16/2019 18:15:40 02/17/20 19 02/16/2019 MAMMO , scree katerina, bilat eral No observ ation record ed. [facility] ([facility]) [address], [place], [address], 02/16/2019 16:08:46 02/28/20 19 02/27/2019 XR, elbow , 3 or more view No observ ation record ed. [email or web address] [address] [place], [id number], 02/27/2019 16:21:58 Result Notes None recorded. Problems Name Problem SNOMED Code Status Onset Date Resolution Date Notes Provider Name and Address Organization Details Recorded Time Malaise and fatigue 805352159 Active 2012 Location : None;Sev erity: Moderate ;Progres s: Stable;A dded By: Dinora Toth;Add to Current Problems : NO Not Available [facility] 7 10:01:45 Disorder of bone and articula r cartilag e 747529785 Completed 201205/03/2012 Location : None;Sev erity: Moderate ;Progres s: Stable;A dded By: Tara Hudson;Add to Current Problems : NO Not Available [facility] 7 10:01:45 Chronic pain [id number] Active 2012 Location : None;Sev erity: Moderate ;Progres s: Stable;A dded By: Marck Espinoza;Marcus d to Current Problems : YES Not Available [facility] 7 10:01:45 Lumbosac ral spondylo sis without myelopat hy 06011599 Active 2012 Location : None;Sev erity: Moderate ;Progres s: Stable;A dded By: Tara Hudson;Add to Current Problems : YES Not Available [facility] 7 10:01:45 Migraine without aura 12513963 Active 2012 Location : None;Sev erity: Moderate ;Progres s: Stable;A dded By: Tabatha Rivera i;Deangelo dd to Current Problems : YES Not Available [facility] 7 10:01:46 Screenin g for malignan t neoplasm of colon Active 2012 Location : None;Sev erity: Moderate ;Progres s: Stable;A dded By: Tara Hudson;Add to Current Problems : NO Not Available [facility] 7 10:01:45 Senile hyperker atosis 809224641 Completed 201308/30/2013 Location : None;Sev erity: Moderate ;Progres s: Stable;A dded By: Carrie Hammonds;Add to Current Problems : NO Not Available [facility] 7 10:01:45 Hearing loss 53136016 Active 2013 Location : None;Sev erity: Moderate ;Progres s: Stable;A dded By: Tara Hudson;Add to Current Problems : NO Not Available [facility] 7 10:01:45 Dyspnea 388150503 Completed 201308/30/2013 Location : None;Sev erity: Moderate ;Progres s: Stable;A dded By: Monica Hussein;Ad d to Current Problems : NO Not Available [facility] 7 10:01:46 Ganglion of joint 87321211 Completed 201312/26/2013 Location : None;Sev erity: Moderate ;Progres s: Stable;A dded By: Tabatha Rivera i;A dd to Current Problems : NO Not Available [facility] 7 10:01:45 Enthesop athy of wrist AND/OR carpus [id number] Completed 201312/26/2013 Location : None;Sev erity: Moderate ;Progres s: Stable;A dded By: Tabatha Rivera i;A dd to Current Problems : NO Not Available [facility] 7 10:01:45 Female genital organ symptoms [id number] Completed 201408/24/2014 Location : None;Sev erity: Moderate ;Progres s: Stable;A dded By: Tara Hudson;Add to Current Problems : YES Not Available [facility] 7 10:01:45 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 Active 2014 Location : None;Sev erity: Moderate ;Progres s: Stable;A dded By: Tara Hudson;Add to Current Problems : NO Not Available [facility] 7 10:01:45 Low back pain 113554062 Active 2014 Location : None;Sev erity: Moderate ;Progres s: Stable;A dded By: Tabatha Rivera i;Deangelo dd to Current Problems : YES Not Available [facility] 7 10:01:46 Benign essentia l hyperten kwadwo 7170757 Active 2014 Location : None;Sev erity: Moderate ;Progres s: Stable;A dded By: Mary Anne Cuadra;Add to Current Problems : YES Not Available [facility] 7 10:01:46 Pain in limb 38670672 Active 2014 Location : None;Sev erity: Moderate ;Progres s: Stable;A dded By: Christina Hdez; Add to Current Problems : YES Not Available [facility] 7 10:01:45 Screenin g for osteopor osis Active 2015 Location : None;Sev erity: Moderate ;Progres s: Stable;A dded By: Sosa Rahman;Add to Current Problems : YES Not Available [facility] 7 10:01:46 Spontane ous ecchymos is [id number] Active 2015 Location : None;Sev erity: Moderate ;Progres s: Stable;A dded By: Mary Anne Cuadra;Add to Current Problems : YES Not Available [facility] 7 10:01:46 Disorder of bone and articula r cartilag e [id number] Active 2015 Location : None;Sev erity: Moderate ;Progres s: Stable;A dded By: Sosa Rahman;Add to Current Problems : NO Not Available [facility] 7 10:01:46 Problem Notes None recorded. Procedures Surgical History Date Name Laterality Status Provider Name and Address Organization Details Recorded Time 11/11/19 19 AIMS completed Alexa Etienne [facility] 11/10/2018 11:01:06 11/11/19 19 SLUMS EXAM completed Alexa Etienne MA [facility] 11/10/2018 11:01:06 11/09/19 17 Generic Procedure completed Tara Hudson [facility] 11/08/2016 14:22:38 [facility] 14[facility] [facility] 05/01/2016 14:36:[address] [facility]2016 17:44:53 Dilation and Curettage completed [facility] 05/01/2016 14:36:38 Imaging Results None recorded. Procedure Notes None recorded. Medical Equipment None Reported. Allergies Allergen ID Allergen Name Allergen Category Reaction Reaction Severity Criticality Documentation Date Start Date Code Code System Note Provider Name and Address Organization Details Recorded Time 31264 erythromy jet medicatio n nausea moderate Not available 04/25/20162012 4053 RxNorm React ion: nause a;Sev erity : Moder ate; Comme nt: Aller gy Type: Adver se React ion; Not Available [facility] 7 03:46:36 49852 Biaxin medicatio n nausea moderate Not available 04/25/2016201272 9 RxNorm React ion: nause a;Sev erity : Moder ate; Comme nt: Aller gy Type: Adver se React ion; Not Available [facility] 7 03:46:36 06378 bisoprolo l / hydrochlo rothiazid e medicatio n Not available Not available Not available 04/25/20162012 61360 7 RxNorm Sever ity: Moder ate; Comme nt: DYSPH AGIA; Aller gy Type: Adver se React ion; Not Available [facility] 7 03:46:36 48653 Medrol medicatio n Not available Not available Not available 04/25/2016201270 2 RxNorm Sever ity: Moder ate; Comme nt: Aller gy Type: Adver se React ion; Not Available [facility] 7 03:46:36 77264 codeine phosphate medicatio n Not available Not available Not available 04/25/20162012 2672 RxNorm Sever ity: Moder ate; Comme nt: Aller gy Type: Adver se React ion; Not Available [facility] 7 03:46:36 78189 gabapenti n medicatio n Not available Not available Not available 05/01/2016 33126 RxNorm hair loss Tabatha El chin [facility] [place] 7 11:17:01 Medications Name Sig Start Date [...] 6 hr prn 12/11 completed RxNorm : 832400 ;Allow Substi tution : True Not Available Not Available Not Available prednisone 20 mg tablet 3 po q day for 3 days then 2 po q day for 3 days then 1 po q day for 4 days 03/21 completed RxNorm : 401771 ;Allow Substi tution : True Not Available Not Available Not Available Voltaren 75 mg tablet,del ayed release Take 1 tablet(s) by mouth bid 12/11 completed RxNorm : 734618 ;Allow Substi tution : True Not Available Not Available Not Available oxycodone- acetaminop hen 5 mg-325 mg tablet 11/10 completed Not Available Not Available Not Available Denavir 1 % topical cream Apply sufficien t amount to affected area q2h for 4 days while awake 04/27 completed RxNorm : 129449 ;Allow Substi tution : True Not Available [...] prn for migraine 11/14 completed RxNorm : 258116 ;Allow Substi tution : True Not Available Not Available Not Available fluticason e propionate 50 mcg/actuat ion nasal spray,susp ension USE 2 SPRAYS INTO EACH NOSTRIL EVERY DAY 2019 active Not Available Not Available Not Avai lable Tylenol Extra Strength 500 mg tablet Take 2 tabs (1000mg) daily 10/03 completed RxNorm : 718313 ;Allow Substi tution : True Not Available Not Available Not Available Restasis 0.05 % eye drops in a dropperett e Instill 1 drop(s) to each eye bid 10/31 completed RxNorm : 753818 ;Allow Substi tution : True Not Available [...] Details Last Updated DateTime 7 165.1 cm 66490.7 3 g 20.2 kg/m2 97.7 [degF] 98 % 98 % 70 /min 112/74 mm[Hg] Tabatha Gallegos ma [place] - [facility] 7 11:19:38 Date Recorded Body height Body mass index (BMI) Body weight Body temperature Oxygen saturation Oxygen saturation in Arterial blood by Pulse oximetry Heart rate Systolic And Diastolic Provider Name and Address Organization Details Last Updated DateTime 8 165.1 cm 19.5 kg/m2 93832.6 6 g 97.1 [degF] 98 % 98 % 52 /min 110/80 mm[Hg] Tabatha Gallegos ma [facility] 8 12:50:07 Date Recorded Body height Body mass index (BMI) Body weight Body temperature Oxygen saturation Oxygen saturation in Arterial blood by Pulse oximetry Heart rate Systolic And Diastolic Provider Name and Address Organization Details Last Updated DateTime 7 165.1 cm 19.7 kg/m2 02446.6 g 97.2 [degF] 98 % 98 % 70 /min 112/80 mm[Hg] Tabatha Gallegos ma [facility] 7 10:10:07 Date Recorded Body height Body mass index (BMI) Body weight Body temperature Oxygen saturation Oxygen saturation in Arterial blood by Pulse oximetry Heart rate Systolic And Diastolic Provider Name and Address Organization Details Last Updated DateTime 9 165.1 cm 19.3 kg/m2 15150.7 1 g 97 [degF] 99 % 99 % 66 /min 117/82 mm[Hg] Alexa Etienne MA [facility] 9 11:11:23 Social History Question Answer Notes LastModified by Organizat ion Details LastModified Time Tobacco Smoking Status Never Smoker Tabatha Rainey [facility] 05/01/2016 09:47:08 What Was The Date [...] Influenza, high-dose, trivalent, PF 6 completed Tressa young, [place] [facility] 02/06/2016 10:06:33 Pneumococcal conjugate PCV 13 5 completed Not Available [facility] 04/25/2016 05:39:04 Influenza, split virus, trivalent, preservative 5 completed Not Available [facility] 04/25/2016 05:39:04 Tdap 0 completed Not Available [facility] 04/25/2016 05:39:04 zoster live 8 completed Not Available [facility] 04/25/2016 05:39:04 Influenza, split virus, trivalent, preservative 3 completed Not Available [facility] 04/25/2016 05:39:04 pneumococcal polysaccharide PPV23 0 completed Not Available [facility] 04/25/2016 05:39:05 Influenza, split virus, trivalent, preservative 2 completed Not Available [facility] 04/25/2016 05:39:05 Influenza, high-dose, trivalent, PF 7 completed Mica Hilton null, [place] [facility] 02/14/2017 12:54:13 pneumococcal polysaccharide PPV23 7 completed Mica [place] [facility] 02/14/2017 12:55:08 Influenza, high-dose, trivalent, PF 8 completed Suri Pearce MD Attn: Accounting[address] [place], [address], [place] [facility] 01/31/2018 18:02:58 Past Encounters Encounter ID Performer Location Encounter Start Date Encounter Closed Date Diagnosis/Indication Diagnosis SNOMED-CT Code Diagnosis ICD10 Code Diagnosis IMO Codes Diagnosis Note [id number] Tara Hudson MD [facility] [address] [place] [address] 05/01/2016 10:56:51 05/02/2016 16:39:27 Benign essential hypertension 6736913 I10 Osteoarthr itis of wrist 307933307 M19.031 M19.927 [id number] Tara Hudson MD [place] [address] [place] [address] 11/08/2016 09:54:23 11/08/2016 14:33:05 Osteoarthritis of wrist 229084244 M19.031 M19.032 Benign ess ential hypertension 9718247 I10 Allergic r hinitis caused by pollen 21996903 J30.1 Screening for malignant neoplasm of breast 790860787 Z12.39 Senile hyperkeratosis 39 1780763 L82.1 [id number] Tara Hudson MD [place] [address] [facility] [place] [address] 10/31/2017 12:18:48 11/01/2017 12:56:39 Benign essential hypertension 6027873 I10 Fatigue 38584135 R53.83 Osteoarthr itis of wrist 516691334 M19.031 M19.032 Allergic r hinitis caused by pollen 43619266 J30.1 Vertigo 658203571 R42 Pain of left hand 428678 1362 86552 M79.642 and ganglions of right hand [id number] Tara Hudson MD [place] [address] [facility] [place] [address] 11/10/2018 10:37:45 11/10/2018 12:16:24 Adult health examination 611498241 Z00.00 Benign ess ential hypertension 4848171 I10 Osteoarthr itis of wrist 855972146 M19.031 M19.032 Low back pain 975871495 M54.5 Ganglion of wrist 499151 009 M67.431 Osteopenia 199189213 M85 .9 Health Concerns Section Related Observation LastModified by Organization Detai ls LastModified Time None Recorded Concern Status LastModified by Organization Details LastModified Time None Recorded Advance Directives Directive None Recorded Payers Insurance Date Sequence Insurance Name Policy Number Policy Jacques Covered Member ID Jacques Member ID Guarantor Name 11/10/2018 1 [place] Katina Vinson [id number] Katina Vinson 11/10/2018 1 [place] Katina Vinson [id number] Katina Vinson 11/10/2018 2 [employer]BINED INSURANCE - [employer] (MEDICARE SUPPLEMENT) PLAN F Katina Vinson [id number] Katina Vinson 11/10/2018 3 [place] - [facility] - [facility] Katina Vinson [id number] Katina Vinson Notes Date Note Type Note Provider Name and Address Organization Details Recorded Time 05/01/19 17 text/htm l Hypertension F/UReported by PatientHPIFor associated symptoms, patient reportsno dizziness,no lightheadedness,no chest pain,no shortness of breath,no palpitations, andno edema. For lifestyle, patient reportsregular exerciseandlimiting/avoiding salt. For medications, patient reportstaking medications as directed,no side effects from medication, andchecks blood pressure at home, range: (138/80 last reading). Rash/Skin LesionReported by PatientHPIFor quality, patient reportsmultiplebut reportsnot painful. For location, patient reportsback. For severity, patient reportsworsening. For duration, patient reportshas noted for >3 months. For context, patient reportsno new detergents or skin products.ROS as noted in the HPI Tara young [place] [facility] 05/01/2016 11:55:36 11/09/19 17 text/htm l DysphagiaReported by PatientHPIFor quality, patient reportstightness. For location, patient reportsthroat. For severity, patient reportssame. For duration, patient reportspresent for 6-12 months. For onset/timing, patient reportsworse with meals. For context, patient reportssolids only. For alleviating factors, patient reportsdrinking liquids. For associated symptoms, patient reportsno chest pain(ear congestion over the past few days, takes loratidine daily with no relief.).Hx of ulcer Rash/Skin LesionReported by PatientHPIFor quality, patient reportsitchyandmultiplebut reportsnot painful. For location, patient reportsback(removal of seboric keratosis. 1cm lesions.). For severity, patient reportsworsening. For duration, patient reportshas noted for >3 months. For context, patient reportsno new detergents or skin products. For aggravating factors, patient reportsclothing (bra line). For associated symptoms, patient reportsno fever.ROS as [facility] the [facility] 14:28:43 11/01/19 18 text/htm l Hypertension F/UReported by PatientHPIFor associated symptoms, patient reportsdizziness (last for several seconds, started about 4-5 months ago)andlightheadednessbut reportsno chest pain,no shortness of breath,no palpitations,no edema, andno calf pain with exertion. For lifestyle, patient reportsregular exercise (daily)andlimiting/avoiding salt. For medications, patient reportstaking medications as directedandno side effects from medication(does not check bp.). Rash/Skin LesionReported by PatientHPIFor quality, patient reportsmultiple (two)but reportsnot painfulandstable. For location, patient reportshands (right)(skin masses). For severity, patient reportsworsening. For duration, patient reportshas noted for >3 months (1 1/2 months). For onset/timing, patient reportsabrupt onset. For context, patient reportsno new detergents or skin products,no one else with similar rash, andnot scratching. For alleviating factors, patient reportsnothing gives relief. For aggravating factors, patient reportsnothing makes it worse. For associated symptoms, patient reportsno fever.ROS as noted [facility] the [facility] 10/31/2017 14:02:59 11/11/19 19 text/htm l Medicare Annual Wellness VisitReported by PatientSocial/Behavioral HistoryFor diet and nutrition, patient reportshealthy diet. For fracture risk, patient reportsno history of fractures. For physical activity, patient reportsexercises on a regular basis.Mental Status:For depression risk, patient reportsnever feels sad, empty, or tearfulandno loss of interest in activities. For orientation, patient reportsno disorientation to time,no disorientation to date, andno disorientation to place. For concentration and memory, patient reportsno memory lapses or loss.Functional AbilityFor falls risk assessment, patient reportsdizziness/vertigo. For hearing, patient reportswears hearing aids. For activities of daily living, patient reportsable to bathe with limited or no assistance,able to contol urination and bowels,able to dress with limited or no assistance,able to feed self with limited or no assistance,able to get out of chair or bed with limited or no assistance,able to groom with limited or no assistance, andable to toilet with limited or no assistance. For instrumental activities of daily living, patient reportsable to do house work with limited or no assistance,able to grocery shop with limited or no assistance,able to manage medications with limited or no assistance,able to manage money with limited or no assistance,able to prepare meals with limited or no assistance, andable to use the phone with limited or no assistance. For vision, (wears glasses). [facility] 11/10/2018 12:07:18 OBGyn Episode No OBEpisode recorded.
--- OUTSIDE RECORDS SUMMARY | 2025-01-18 11:38 | XMS_ITS | Clinical Summary ---
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 Not on file Not on file Not on file Last Filed Vital Signs Vital Sign Reading Time Taken Comments Blood Pressure 148/89 05/09/2022 11:53 AM ACCOUNTS CLERK Pulse 93 05/09/2022 11:53 AM ACCOUNTS CLERK Temperature 36.6 C (97.8 F) 05/09/2022 11:53 AM ACCOUNTS CLERK Respiratory Rate 18 04/20/2022 8:01 AM ACCOUNTS CLERK Oxygen Saturation 99% 04/20/2022 8:01 AM ACCOUNTS CLERK Inhaled Oxygen Concentration - - Weight 51.9 kg (114 lb 6.4 oz) 05/09/2022 11:53 AM ACCOUNTS CLERK Height 160 cm (5' 3) 05/09/2022 11:53 AM ACCOUNTS CLERK Body Mass Index 20.27 05/09/2022 11:53 AM ACCOUNTS CLERK Plan of Treatment Health Maintenance Due Date [...] age to complete this topic Insurance MEDICARE [facility] Care Teams Customer Experience Specialist Relationship Specialty Start Date End Date Rachel Friend FNP PCP - General Nurse Practitioner Family 07/20/21
--- OUTSIDE RECORDS SUMMARY | 2025-01-18 11:38 | XMS_ITS | Clinical Summary ---
Author Organization [facility] Address [address] [place] [address] Care Team Providers Care Mineral Mixer Name Role Phone Rachel Friend NP Primary Care Provider [phone] Todd Cedeno MD Unavailable [phone] Allergies Active Allergy Reactions Criticality Noted Date [...] is likely to be problematic in the [place] [facility] [place]. Because of this combination of factors, we [...] of Atrial Fibrillation: A Report of the [place] [employer]/ [place] [employer] Joint Committee on Clinical Practice Guidelines. 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 Dx; Syncope, Tachycardia, Palpitations. DOI 06/15/2022-Fleissner. Mirza. Associated Content remote monitoring. Visit for wound check 06/22/2022 [...] Encounters Date Type Department Care Team Description 01/11/2025 7:00 AM CDT Ancillary Procedure [facility] [address] [facility] [address] [address] Palpitations; Status post placement of implantable loop recorder; Syncope and collapse; SVT (supraventricular tachycardia) 01/01/2025 Telephone [facility] [address] [place] [address] Todd Cedeno MD 12/22/2024 4:05 PM CDT - 12/22/2024 5:35 PM CDT Surgery [facility] [address] [place] [phone] Tigre Triana MD PERC STACEY CLOSE W/IMPLANT [id number] 12/22/2024 3:22 PM CDT Anesthesia Event [facility] [address] [place] [phone] Ion Mccollum MD Fichter, Christopher Robert, MD 12/22/2024 1:50 PM CDT - 12/22/2024 7:28 PM CDT Hospital Encounter [facility] [address] [address] Tigre Triana MD Paroxysmal atrial fibrillation (HCC) Discharge Disposition: Discharge to home or self care 12/15/2024 [facility]phone [facility] [address] [place] [address] [place] [phone] Teresa Yuen RN 12/11/2024 11:00 AM CDT Office Visit [facility] [address] [place] [address] [place] [phone] Minerva Chua NP SVT (supraventricular tachycardia) (Primary Dx); Paroxysmal atrial fibrillation (HCC); Status post placement of implantable loop recorder; Coronary artery disease involving little shell tribe coronary artery of little shell tribe heart without angina pectoris; Benign essential hypertension 12/10/2024 10:00 AM CDT [facility] [address] [place] [address] [place] [phone] Tigre Triana MD Paroxysmal atrial fibrillation (HCC) (Primary Dx); Status post placement of implantable loop recorder 12/10/2024 Telephone [facility] [address] [place] [address] [place] [phone] Teresa Yuen, MEGAN 11/30/2024 7:00 AM CDT Ancillary Procedure [facility] [address] [facility] [address] [place] [phone] Palpitations; Status post placement of implantable loop recorder; Syncope and collapse; SVT (supraventricular tachycardia) 11/06/2024 Telephone [facility] [address] [place] [address] [place] [phone] Todd Cedeno MD 11/04/2024 Telephone [facility] [address] [place] [address] [place] [phone] Rosa Cotto NP 11/04/2024 Orders Only [facility] [address] [place] [address] [place] [phone] Tigre Triana MD Paroxysmal atrial fibrillation (HCC) (Primary Dx) 11/04/2024 Orders Only [facility] [address] [facility] [address] [place] [address] Rosa Cotto NP Paroxysmal atrial fibrillation (HCC) (Primary Dx) 10/30/2024 11:00 AM CDT Office Visit [facility] [address] [facility] [address] [place] [address] Rosa Cotto NP Paroxysmal atrial fibrillation (HCC) (Primary Dx); CAD in little shell tribe artery 10/30/2024 Telephone [facility] [address] [facility] [address] [place] [address] Tigre Triana MD 10/19/2024 7:45 AM CDT Ancillary Procedure [facility] [address] [facility] [address] [place] [address] Paroxysmal atrial fibrillation (HCC) (Primary Dx); Palpitations; Status post placement of implantable loop recorder; Syncope and collapse; SVT (supraventricular tachycardia) 10/19/2024 Telephone [facility] [address] [facility] [address] [place] [address] Todd Cedeno MD from Last 3 Months [...] Procedure: PCI BALJEET MAJOR CORONARY C9600 - [id number]; Surgeon: Xu Bhardwaj MD; Location: [facility] CARDIAC MATERIAL CONTROL ANALYST; Service: Cardiovascular; Laterality: N/A; Medical devices from this surgery are in the Medical Devices section. CARDIAC CATHETERIZATION 07/14/2024 N/A Procedure: Percutaneous Coronary Lithotripsy W/ PCI (+) [id number]; Surgeon: Xu Bhardwaj MD; Location: [facility] CARDIAC MATERIAL CONTROL ANALYST; Service: Cardiovascular; Laterality: N/A; Medical devices from this surgery are in the Medical Devices section. CARDIAC CATHETERIZATION 07/14/2024 N/A Procedure: IVUS NON-COR 1ST VESSEL; Surgeon: Xu Bhardwaj MD; Location: [facility] CARDIAC MATERIAL CONTROL ANALYST; Service: Cardiovascular; Laterality: N/A; Medical devices from this surgery are in the Medical Devices section. IMPLANTABLE CARDIAC DEVICE 12/22/2024 N/A Procedure: PERC STACEY CLOSE W/IMPLANT [id number]; Surgeon: Tigre Triana MD; Location: [facility] CARDIAC MATERIAL CONTROL ANALYST; Service: Cardiovascular; Laterality: N/A; Medical devices from [...] drink = 0.6 oz pur e alcohol) [facility] Utilities Answer Date Recorded In the [...] often do you attend chur ch or orthodoxy services? Never 07/15/2024 Do you belong to any clubs o r organizations such as taoist groups, unions, fraternal or athletic groups, or [...] were you homeless or living in a [place] (including now)? No 07/15/2024 Personal Safety Answer Date Recorded Have you ever been in or are you currently in a harmful physical or emotional relationship or is someone making you feel afraid or unsafe? Denies 12/22/2024 Comments No Sex and Gender Information Value Date Recorded Sex Assigned at Not on file Legal Sex Female 1:32 AM BUSINESS RELATIONS MANAGER Gender Identity Female 12/12/2018 8:34 AM [...] 019, 02/10/2018 Medical Devices Implanted Type Area Statement Clerks Supervisor Device Identifier Shelf Expiration Date Model / Serial / Lot Implantable Loop Recorder Implantable Loop Recorder Chest [employer] Cornelius Device Closure 24mm Lt Watchman Flx Pro Cardiac Strl La [id number] - [id number] - [id number] Implanted:Qty: 1 on 12/22/2024 by Tigre Triana MD at [facility] Left Atrial Appendage Occluder [employer] Cornelius 10/13/2027 [id number] / [id number] / [id number] Cast Vascular System Closure Repair Femoral Artery Suture Mediated Perclose Prostyle 54075-97 - S0 - [id number] Implanted:Qty: 1 on 07/14/2024 by Xu Bhardwaj MD at [facility] Other - see comments Cast Vascular 03/21/2026 [id number] / 0 / [id number] [employer] Device Vascular Closure Vascade Mvp Xl 10-12fr Venous Strl 800-1012xl - [id number] - [id number] Implanted:Qty: 1 on 12/22/2024 by Tigre Triana MD at [facility] Vascular Closure Device [employer] 10/12/2026 800-1012X L / [id number] / [id number] Med[employer] Inc Infuse Kit Xs Graft Bone Rhbmp-2 Bovine Collagen Lumbar Taper [id number] - [id number] Implanted:Qty: 1 on 12/05/2022 by Ion Vergara MD at [facility] N/A: Ronald [employer] Inc [id number] 04/21/2024 [id number] / / [id number] C [employer] Vitoss Void Filler Foam Pack Bioactive Substitute 2.5ml Bone 5433-1146 - [id number] Implanted:Qty: 1 on 12/05/2022 by Ion Vergara MD at [facility] N/A: Ronald [employer] [id number] 06/19/20236049-7962 / / [id number] InstallMonetizer [facility] Synergy Xd Monorail 2.75mm 38mm 144cm Delivery System 1 Access [id number] - S0 - [id number] Implanted:Qty: 1 on 07/14/2024 by Xu Bhardwaj MD at [facility] 11/27/2025 [id number] / 0 / [id number] Explanted Type Area Statement Clerks Supervisor Device Identifier Shelf Expiration Date Model / Serial / Lot Elvia Craniomaxillofacial Leibinger [place] 2 2mm 5mm Self Tap Cross Pin Maxillofacial 50- - [id number] Implanted:Qty: 8 on 12/05/2022 by Ion Vergara MD at [facility] Explanted:Qty: 8 on 01/10/2023 at [facility] Mandible Jewett Craniomaxillofacial 50 / / Jewett Craniomaxillofacial Leibinger [place] 2 Smart Lock 9 Hole Mandible Small Plate Bone [id number] - [id number] Implanted:Qty: 2 on 12/05/2022 by Ion Vergara MD at [facility] Explanted:Qty: 2 on 01/10/2023 at [facility] Surgery Streetman Mandible Elvia Craniomaxillofacial [id number] / / Elvia Craniomaxillofacial Leibinger [place] 2 Smartlock 2mm 8mm Self Drill Lock 50 - [id number] Implanted:Qty: 10 on 12/05/2022 by Ion Vergara MD at [facility] Explanted:Qty: 10 on 01/10/2023 at [facility] Center Mandible Jewett Craniomaxillofacial 50 / / Elvia Craniomaxillofacial 16 Hole Maxillofacial 1.5mm Mini Plate Bone [id number] - [id number] Implanted:Qty: 1 on 12/05/2022 by Ion Vergara MD at [facility] Explanted:Qty: 1 on 01/10/2023 by Ion Vergara MD at [facility] Surgery Streetman Mandible Jewett Craniomaxillofacial [id number] / / Elvia Craniomaxillofacial Leibinger [place] 2 2mm 8mm Lock Cross Pin Mandibular Screw [id number] - [id number] Implanted:Qty: 2 on 12/05/2022 by Ion Vergara MD at [facility] Explanted:Qty: 2 on 01/10/2023 at [facility] Surgery Streetman Mandible Jewett Craniomaxillofacial [id number] / / Elvia Craniomaxillofacial Leibinger [place] 2 2mm 10mm Lock Cross Pin Maxillofacial Screw [id number] - [id number] Implanted:Qty: 2 on 12/05/2022 by Ion Vergara MD at [facility] Explanted:Qty: 2 on 01/10/2023 at [facility] Surgery Streetman Mandible Elvia Craniomaxillofacial [id number] / / Elvia Craniomaxillofacial Leibinger [place] 2 2mm 12mm Lock Cross Pin Maxillofacial Screw [id number] - [id number] Implanted:Qty: 2 on 12/05/2022 by Ion Vergara MD at [facility] Explanted:Qty: 2 on 01/10/2023 at [facility] Surgery Streetman Mandible Jewett Craniomaxillofacial [id number] / / Elvia Craniomaxillofacial Plate Mini 8mm Mndb 16 Hole Str Condensed 2mm Screw Bone Ti [id number] - [id number] Implanted:Qty: 1 on 12/05/2022 by Ion Vergara MD at [facility] Explanted:Qty: 1 on 01/10/2023 at [facility] Surgery Streetman Mandible Elvia Craniomaxillofacial [id number] / / Procedures Procedure Name Priority Date/Time Associated Diagnosis Comments ECG 12-LEAD Routine 12/22/2024 5:29 PM CDT WHIT GUIDANCE DURING CARDIAC STRUCTURAL INTVN 65024 Routine 12/22/2024 4:26 PM CDT PERC STACEY CLOSURE W/IMPLANT (WATCHMAN) 88638 Routine 12/22/2024 4:10 PM CDT Paroxysmal atrial fibrillation (HCC) POCT ACTIVATED CLOTTING TIME, HIGH RANGE Routine 12/22/2024 3:56 PM CDT OR AN PROCEDURE PLACEHOLDER Routine 12/22/2024 3:41 PM CDT OR AN ELECTIVE ENDOTRACHEAL AIRWAY Routine 12/22/2024 3:41 [...] PM CDT) 12/22/2024 5:29 PM CDT Narrative [facility] - 12/23/2024 10:59 AM CDT Vent Rate: 66 bpm RR Interval: 907 msec OR Interval: 236 msec QRS Duration: 125 msec QT Interval: 391 msec QTC Interval: 404 msec P-R-T Overton: 59 - -50 - 14 degrees IMPRESSION: SINUS RHYTHM WITH FIRST DEGREE AV BLOCK LEFT ANTERIOR FASCICULAR BLOCK [QRS AXIS <= -45, QR IN I, RS IN II] POSSIBLE ANTERIOR MYOCARDIAL INFARCTION (MINIMAL R-WAVE PROGRESSION PRESENT) ABNORMAL ECG Electronically Signed By: Barak Coombs MD [facility] us Tigre Triana MD ECG ORDERABLES Final R esult [facility] * WHIT Guidance During Cardiac Structural Intvn 17764 (12/22/2024 4:26 PM CDT) Anatomical Region Laterality Modality Echocardiography 12/22/2024 3:23 PM CDT Narrative 12/22/2024 5:55 PM CDT [address] [address] TRANSESOPHAGEAL ECHOCARDIOGRAM Patient Name: KATINA FISH : 1945 (79y 8m) Sex: F Study Date: 12/22/2024 03:23:12 PM Ht(Inch): 65 Wt(Lb): 117 BSA: 1.56 Manager Solution: DANIELLE Location: 6152 Order Provider: TIGRE TRIANA [...] end of the case. Predominant flow is rlau-wt-fqcpi. Mitral Valve: Normal appearance of the mitral [...] end of the case. Predominant flow is pxeq-mg-qvvin. 4. Normal appearance of the mitral valve. [...] Procedure Note Geovanny Harris MD - 12/22/2024 [facility] [address] [place] [address] TRANSESOPHAGEAL ECHOCARDIOGRAM Patient Name: KATINA FISH : 1945 (79y 8m) Sex: F Study Date: 12/22/2024 03:23:12 PM Ht(Inch): 65 Wt(Lb): 117 BSA: 1.56 Manager Solution: DANIELLE Location: 6152 Order Provider: TIGRE TRIANA [...] the end of thecase. Predominant flow is ufik-kw-pydfz. Mitral Valve: Normal appearance of the mitral [...] the end of the case.Predominant flow is ipag-zt-eerrv. 4. Normal appearance of the mitral valve. [...] By: Geovanny hernandes 12/22/2024 5:10:45 PM CDT Tigre Triana MD CV ECHO PROCEDURES Radha l Result * PERC STACEY CLOSURE W/IMPLANT (WATCHMAN) 13499 (12/22/2024 4:10 PM CDT) Anatomical Region Laterality Modality X-Ray Angiograph y Tigre Triana MD CV ELECTROPHYSIOLOGY OR OCS Final Result * (ABNORMAL) POC Activated Clotting Time, High Range (12/22/2024 3:56 PM CDT) ACT 390(H) 87 - 138 sec Blood 12/22/2024 3:56 PM CDT 12/22/2024 3:56 PM CDT Tigre Triana MD LAB BLOOD ORDERABLES Fi nal Result [facility] [address] Department [place] [address] * OR AN ELECTIVE ENDOTRACHEAL AIRWAY, OR AN PROCEDURE PLACEHOLDER (12/22/2024 3:41 PM CDT) Narrative Oma Montes De Oca CRNA - 12/22/2024 3:41 PM CDT Oma Montes De Oca CRNA 12/22/2024 3:53 PM Airway Patient location: OR Urgency: elective Date/time: 12/22/2024 3:33 PM Indications for airway management: anesthesia Difficult airway: no Staff: Placed by: Anesthesiologist: Ion Mccollum MD SENIOR MECHANICAL DESIGN ENGINEER: Oma Montes De Oca CRNA Emergent [...] PM CDT) 12/22/2024 2:52 PM CDT Narrative [facility] - 12/23/2024 9:32 AM CDT Vent Rate: 67 bpm RR Interval: 889 msec OR Interval: 231 msec QRS Duration: 110 msec QT Interval: 379 msec QTC Interval: 394 msec P-R-T Overton: 53 - -54 - 28 degrees IMPRESSION: SINUS RHYTHM WITH FIRST DEGREE AV BLOCK LEFT ANTERIOR FASCICULAR BLOCK [QRS AXIS <= -45, QR IN I, RS IN II] POOR R-WAVE PROGRESSION; POSSIBLE ANTERIOR MYOCARDIAL INFARCTION ABNORMAL ECG Electronically Signed By: Barak Coombs MD [facility] Tigre Triana MD ECG ORDERABLES Final R esult Performing Organization Address [facility] Co de Phone Number [facility] RateElert [facility] * Type and screen (12/22/2024 1:58 PM CDT) ABO Rh A Negative Timo, indirect Negative [facility] Blood 12/22/2024 1:58 PM CDT 12/22/2024 2:24 PM CDT [facility] - 12/22/2024 3:14 PM CDT Has the patient had Daratumumab or Isatuximab in the past 6 months?->Unknown Tigre Triana MD LAB BLOOD BANK TEST ORD ERABLES Final Result Performing Organization Address [facility] Co de Phone Number [facility] [address] Department [place] [address] * ECG 12 lead (12/10/2024 10:03 AM CDT) Tigre Triana MD ECG ORDERABLES Final R esult * DEVICE CHECK - REMOTE (12/01/2024 10:58 AM CDT) Anatomical Region Laterality Modality Other Narrative 12/15/2024 12:15 PM CDT [employer] LNQ22 Loop Recorder. Dx; Syncope, Tachycardia, Palpitations. [...] RN Todd Cedeno MD CV CARDIAC SERVICES [facility] Final Result * Scanned Labs (10/30/2024 [...] Modality Other Narrative 10/26/2024 7:59 AM CDT [employer] LNQ22 Loop Recorder. Dx; Syncope, Tachycardia, Palpitations, [...] [facility] remote f/u 11/30/2024. Mally Payton, MEGAN Todd Cedeno MD CV CARDIAC SERVICES PROCE JOANN Final Result from Last 3 Months Insurance MEDICARE [facility] MEDICARE BLUE CROSS MEDICARE SUPPLEMENT MEDICARE [facility] Advance Directives For more information, please contact: [phone] Documents on File Type Date Recorded Patient [employer] Player Expl anation ADVANCE DIRECTIVE 08/21/2012 12:00 AM TJ Leger WILL ADVANCE DIRECTIVE 08/21/2012 12:00 AM POWER OF MUSHROOM CUTTER FINANCIAL/MEDICAL * Full Code (Latest Code Status on File) Date Activated Date Inactivated Comments 07/14/2024 12:14 PM 07/15/2024 6:47 PM * Full Code Date Activated Date Inactivated Comments 12/04/2022 12:40 AM 12/07/2022 8:03 PM Care Teams Mineral Mixer Relationship Specialty Start Date End Date Rachel Friend NP [address] [place] [address] PCP - General Family Medicine 11/26/23 Todd Cedeno MD [address] [place], [place] [id number] Consulting Physician Cardiology 07/15/24
[2025-01-18 13:00] LABS: Hematocrit 40.2 % (37.0-47.0); Hemoglobin 13.1 g/dL (12.0-15.0); Mean Corpuscular HGB Conc 32.6 g/dl (32-36); Mean Corpuscular Hemoglobin 31.9 pg (26-34); Mean Corpuscular Volume 97.8 fl (80-100); Platelet Count Result 293 k/mm3 (150-375); Red Blood Count 4.11 M/mm3 (4.2-5.4); White Blood Count 6.7 K/mm3 (4.5-10.0)
[2025-01-18 13:09] LABS: Alanine Aminotransferase 20 U/L (6-35); Albumin Level 4.6 g/dL (3.5-5.1); Alkaline Phosphatase 65 U/L (38-126); Anion Gap 5 mmol/L (4-12); Aspartate Amino Transferase 77 U/L (14-36); Bilirubin,Total 0.6 mg/dL (0.2-1.3); Blood Urea Nitrogen 23 mg/dL (7-17); Calcium 9.9 mg/dL (8.4-10.2); Carbon Dioxide 26 mmol/L (22-30); Chloride 95 mmol/L (98-107); Estimated Glomerular Filt Rate > 60; Glucose 78 mg/dL (65-110); Potassium 4.9 mmol/L (3.4-5.0); Sodium 126 mmol/L (137-145); Total Protein 7.2 g/dL (6.3-8.2)
== END 2025-01-18 10:57 | disposition home or self-care (01) ==
PROVIDERS: PCP Nurse Practitioner Family; Visit Provider Nurse Practitioner Family
DX: R74.01 Elevation of levels of liver transaminase levels (principal); Z86.2 Personal history of diseases of the blood and blood-forming organs and certain disorders involving the immune mechanism
CPT/HCPCS: 36415; 80053; 85027

== ENCOUNTER 2025-02-12 00:20 | Day surgery (SDC) | payer MEDICARE, SELFPAY ==
[2024-05-18 14:53] VITALS: BMI 19.5
--- NOTE | 2025-02-03 09:56 | SUR.PREOP ---
Pt's chart reviewed with Dr. Dowling regarding his past endoscopy report, pathology report, cardiology note, and office note. Dr. Dowling is good with pt staying on her Plavix due to her increase risk of stroke if Plavix is stopped and will do colonoscopy to check polyp site from previous colonoscopy.
[2025-02-03 10:04] VITALS: BMI 20.2
--- NOTE | 2025-02-03 10:37 | PC.NURSE ---
Clearance received from Dr. Cedeno, chart reviewed with Dr. Dowling and he is okay to proceed with pt remaining on her plavix. Pt called and scheduled for 02/12/2025 and is aware that she can remain on the Plavix for the colonoscopy.
--- OUTSIDE RECORDS SUMMARY | 2025-02-12 00:25 | XMS_ITS | Clinical Summary ---
Author Organization [facility] Address [address] [place] [address] Care Team Providers Care Occupational Therapist Per Diem Name Role Phone Rachel Friend NP Primary Care Provider [phone] Todd Cedeno MD Unavailable [phone] Allergies Active Allergy Reactions Criticality Noted Date [...] mouth daily 30 tablet 5 07/16/19 Active Additional Information Patient taking differently:75 mg oralNightly, Reported on 02/01/2025 aspirin 81 mg enteric coated tablet Take 1 tablet (81 mg total) by mouth daily 30 tablet 07/16/19 Active omega-3 fatty acids-fish oil 300-1,000 mg capsule Take 2 capsules (2 g total) by mouth daily Active glucosamine/cho ndr stcak A sod (OSTEO BI-FLEX ORAL) Take by mouth every other day Active diltiazem (TIAZAC) 120 mg 24 hr capsuleIndicati ons:SVT (supraventricul ar tachycardia) Take 1 capsule (120 mg total) by mouth daily 90 capsule 5 07/29/19 Active Additional Information Patient taking differently:120 mg oralNightly, Reported on 02/01/2025 rosuvastatin (CRESTOR) 20 mg tablet Take 1 tablet (20 mg total) by mouth daily 90 tablet 3 5 10/17/19 Active Additional Information Patient taking differently:20 mg oralNightly, Reported on 02/01/2025 furosemide (LASIX) 20 mg tablet 1 tablet daily as needed for fluid retention 20 tablet 1 Active Active Problems Problem Noted Date Diagnosed Date Presence of Watchman left atrial appendage closu re device 02/04/2025 Assessment & Plan (02/04/2025 7:48 AM CDT): -S/p LAAO with Dr. Triana -Remains compliant on aspirin and Plavix -No medication changes were made today -45 day WHIT showed device well-seated with no annemarie-device flow seen and no thrombus visualized on the external aspect device. -Follow up in 6 months for 12 lead EKG, device interrogation, and clinic visit Elevated AST (SGOT) 01/27/2025 A-fib 12/22/2024 Paroxysmal atrial fibrillation 12/10/2024 Assessment & Plan (02/04/2025 7:47 AM CDT): -S/p watchman placement Dr. Triana -Remains compliant on aspirin, Plavix, diltiazem -No medication changes were made today -We will continue to monitor her burden through ILR Assessment & Plan (12/10/2024 2:50 PM CDT): [...] is likely to be problematic in the senior care. Because of this combination of factors, we [...] so we will prioritize PLAAO/C. From: Олег JA, Cornelio MK, Linden AL, et al. 2022 CC/AHA/ACCP/HRS Guideline for the Diagnosis and Management of Atrial Fibrillation: A Report of the [place] [employer]/ [place] [employer] Joint Committee on Clinical Practice Guidelines. Circulation 2022;148: e42 Class IIA: In patients with AF, a moderate to high risk of stroke ([id number] score >=2), and a contraindication to long-term oral anticoagulation due to a nonreversible cause, percutaneous LAAO (pLAAO) is reasonable Coronary artery disease invo lving [place] coronary artery of [place] heart with angina pectoris 07/14/2024 Gastroesophageal reflux disease without esophagi tis 07/14/2024 Anxiety 07/14/2024 CAD in [place] artery 07/14/2024 SVT (supraventricular tachycardia) 04/18/2023 Atypical chest pain 04/18/2023 Closed fracture of mandible 01/04/2023 Fall, initial encounter 12/03/2022 Open fracture of mandible 12/03/2022 Status post placement of implantable loop record er 07/17/2022 Overview (07/17/2022): Medtronic [id number] Loop Recorder. Dx; Syncope, Tachycardia, Palpitations. DOI 06/15/2022-Fleissner. Mirza. Reelink remote monitoring. Visit for wound check 06/22/2022 [...] Malaise and fatigue 04/30/2012 Subjective tinnitus 08/19/2007 Resolved Problems Problem Noted Date Diagnosed Date Resolved Date Angina pectoris, unstable 07/14/2024 Encounters Date Type Department Care Team Description 02/01/2025 3:00 PM CDT Telemedicine Arrhythmia [facility] [address] [facility] [address] [place] [phone] Lilian Stallworth NP Presence of Watchman left atrial appendage closure device (Primary Dx); Paroxysmal atrial fibrillation (HCC) 02/01/2025 9:11 AM CDT Anesthesia Event [facility] [address] [place] [address] Fredo Reynoso DO Strand, Sarah B., MD 02/01/2025 7:46 AM CDT - 02/01/2025 11:59 PM CDT Hospital Encounter [facility] [address] [place] [phone] Barak Calix MD PhD Fredo Reynoso DO Paroxysmal atrial fibrillation (HCC) Discharge Disposition: Discharge to home or self care 01/29/2025 Orders Only [facility] [address] [place] [address] [place] [phone] ProviderAlhaji MD 01/29/2025 Telephone [facility] [address] [place] [address] [place] [phone] Todd Cedeno MD Surgical Clearance 01/27/2025 8:45 AM CDT Office Visit [facility] [address] [place] [address] [place] [phone] Todd Cedeno MD Elevated AST (SGOT) (Primary Dx); Coronary artery disease involving [place] coronary artery of [place] heart with angina pectoris; Paroxysmal atrial fibrillation (HCC); SVT (supraventricular tachycardia); Benign essential hypertension; Moderate tricuspid insufficiency 01/26/2025 Telephone Arrhythmia Center [address] [facility] [address], [place] [address] Teresa Yuen RN 01/19/2025 Telephone [facility] [address] [place] [address] [place] [phone] Todd Cedeno MD 01/11/2025 7:00 AM CDT Ancillary Procedure [facility] [address] [facility] [address], [place] [address] Palpitations; Status post placement of implantable loop recorder; Syncope and collapse; SVT (supraventricular tachycardia) 01/01/2025 Telephone [facility] [address] [place] [address] [place] [phone] Todd Cedeno MD 12/22/2024 4:05 PM CDT - 12/22/2024 5:35 PM CDT Surgery [facility] [address] [place] [phone] Tigre Triana MD PERC STACEY CLOSE W/IMPLANT [id number] 12/22/2024 3:22 PM CDT Anesthesia Event [facility] [address] [place] [phone] Ion Mccollum MD Fichter, Christopher Robert, MD 12/22/2024 1:50 PM CDT - 12/22/2024 7:28 PM CDT Hospital Encounter [facility] [address] [place] [phone] Tigre Triana MD Paroxysmal atrial fibrillation (HCC) Discharge Disposition: Discharge to home or self care 12/15/2024 Telephone [facility] Center [address] [place] [address] [place] [phone] Teresa Yuen RN 12/11/2024 11:00 AM CDT Office Visit [facility] [address] [place] [address] [place] [phone] Minerva Chua NP SVT (supraventricular tachycardia) (Primary Dx); Paroxysmal atrial fibrillation (HCC); Status post placement of implantable loop recorder; Coronary artery disease involving [place] coronary artery of [place] heart without angina pectoris; Benign essential hypertension 12/10/2024 10:00 AM CDT Office Visit [facility] [address] [place] [address] [place] [phone] Tigre Triana MD Paroxysmal atrial fibrillation (HCC) (Primary Dx); Status post placement of implantable loop recorder 12/10/2024 Telephone Ar[facility]hythmia Center [address] [place] [address] [place] [phone] Teresa Yuen, MEGAN 11/30/2024 7:00 AM CDT Ancillary Procedure [facility] [address] [facility] [address] [place] [phone] Palpitations; Status post placement of implantable loop recorder; Syncope and collapse; SVT (supraventricular tachycardia) from Last 3 Months Immunizations Immunization Administration [...] Procedure: PCI BALJEET MAJOR CORONARY C9600 - [id number]; Surgeon: Xu Bhardwaj MD; Location: [facility] CARDIAC REGIONAL EHS MANAGER; Service: Cardiovascular; Laterality: N/A; Medical devices from this surgery are in the Medical Devices section. CARDIAC CATHETERIZATION 07/14/2024 N/A Procedure: Percutaneous Coronary Lithotripsy W/ PCI (+) [id number]; Surgeon: Xu Bhardwaj MD; Location: [facility] CARDIAC REGIONAL EHS MANAGER; Service: Cardiovascular; Laterality: N/A; Medical devices from this surgery are in the Medical Devices section. CARDIAC CATHETERIZATION 07/14/2024 N/A Procedure: IVUS NON-COR 1ST VESSEL; Surgeon: Xu Bhardwaj MD; Location: [facility] CARDIAC REGIONAL EHS MANAGER; Service: Cardiovascular; Laterality: N/A; Medical devices from this surgery are in the Medical Devices section. IMPLANTABLE CARDIAC DEVICE 12/22/2024 N/A Procedure: PERC STACEY CLOSE W/IMPLANT [id number]; Surgeon: Tigre Triana MD; Location: [facility] CARDIAC REGIONAL EHS MANAGER; Service: Cardiovascular; Laterality: N/A; Medical devices [...] Abnormal ECG Motion sickness Heart disease 07/02/24 Mixed conductive and sensori neural hearing loss 1997 Family History Medical History Relation Name Comments Alcohol abuse Father Carlos Rees () Depression Father Carlos Rees () Mental illness Father Carlos Rees ( ) Suidcide Father Carlos Rees () 50 y.o. [...] Rees () Maternal Grandmother Aura Hogue () Alive Mother Suri Rees () Alive Sister Alive Social History Tobacco Use Types Packs/Day Years Used Date Smoking Tobacco: Never Smokeless Tobacco: Never Tobacco Cessation:Counseling Given: Not Answered Alcohol Use Standard Drinks/Week Comments Yes 0 (1 standard drink = 0.6 oz pur e alcohol) [facility] Utilities Answer Date Recorded In the past 12 months has e electric, gas, oil, or water Dovetail threatened to shut off services in your home? No 07/15/2024 Social Connection and Isolation Panel Answer Date Recorded Frequency of Communication with Friends and Fami ly Not on file 07/15/2024 How often do you get togethe r with friends or relatives? Three times a week 07/15/2024 How often do you attend chur ch or confucianist services? Never 07/15/2024 Do you belong to any clubs o r organizations such as advent groups, unions, fraternal or athletic groups, or [...] any time in the past 12 m [facility], were you homeless or living in a fci (including now)? No 07/15/2024 Personal Safety Answer Date Recorded Have you ever been in or are you currently in a harmful physical or emotional relationship or is someone making you feel afraid or unsafe? 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 Gender Identity Female 12/12/2018 8:34 AM CDT Sexual Orientation Straight 12/12/2018 8: 34 AM CDT Occupation Industry Job Start Date Job End Date retired Not on file Not on file Not on file Obstetrics History Last Filed Vital Signs Vital Sign Reading Time Taken Comments Blood Pressure 130/81 02/01/2025 10:01 AM CDT Pulse 66 02/01/2025 10:01 AM CDT Temperature 36.2 C (97.2 F) 12/22/2024 4:30 PM CDT Respiratory Rate 18 02/01/2025 10:01 AM CDT Oxygen Saturation 100% 02/01/2025 10:01 AM CDT Inhaled Oxygen Concentration - - Weight 51.3 kg (113 lb) 02/01/2025 8:07 AM CDT Height 160 cm (5' 3) 02/01/2025 8:07 AM CDT Body Mass Index 20.02 02/01/2025 8:07 AM CDT Plan of Treatment Health Maintenance Due Date Last Done Comments Depression Screening 1945 Hepatitis C Screening 1945 Hepatitis B Screening 1964 Zoster Vaccine (2 of 3) 07/25/2007 05/30/2007 Well Visit 65+ 2011 Osteoporosis Screening-Bone Density Scan 11/12/2020 11/12/2018, 11/10/2018 Influenza Vaccine (#1) 2024 4, 12/28/2020, 01/05/2020, Additional history exists Fall Risk Assessment 02/01/2026 02/01/2025 DTaP/Tdap/Td Vaccine (3 - Td or Tdap) 12/03/2032 12/03/2022, 08/21/2009 Pneumococcal vaccine 65+ Completed 017, 02/03/2015, 01/20/2015, Additional history exists Breast Cancer Screening-Mammogram Discontinued 019, 02/10/2018 Medical Devices Implanted Type Area [employer] Foreign [employer] Tutor Device Identifier Shelf Expiration Date Model / Serial / Lot Implantable Loop Recorder Implantable Loop Recorder Chest Morgan[employer] Cornelius Device Closure 24mm Lt Watchman Flx Pro Cardiac Strl La [id number] - [id number] - [id number] Implanted:Qty: 1 on 12/22/2024 by Tigre Triana MD at [facility] Left Atrial Appendage Occluder [employer] Cornelius 10/13/2027 [id number] / [id number] / [id number] Cast Vascular System Closure Repair Femoral Artery Suture Mediated Perclose Prostyle 62488-84 - S0 - [id number] Implanted:Qty: 1 on 07/14/2024 by Xu Bhardwaj MD at [facility] Other - see comments Cast Vascular 03/21/2026 [id number] / 0 / [id number] Cardiva Medical Inc Device Vascular Closure Vascade Mvp Xl 10-12fr Venous Strl 800-1012xl - [id number] - [id number] Implanted:Qty: 1 on 12/22/2024 by Tigre Triana MD at [facility] Vascular Closure Device Cardiva Medical Inc 10/12/2026 800-1012X L / [id number] / [id number] Medtronic Inc Infuse Kit Xs Graft Bone Rhbmp-2 Bovine Collagen Lumbar Taper [id number] - [id number] Implanted:Qty: 1 on 12/05/2022 by Ion Vergara MD at [facility] N/A: Ronald Medtronic Inc [id number] 04/21/2024 [id number] / / [id number] C [employer]via [employer] Vitoss Void Filler Foam Pack Bioactive Substitute 2.5ml Bone - [id number] Implanted:Qty: 1 on 12/05/2022 by Ion Vergara MD at [facility] N/A: Ronald [employer] [id number] 06/19/[id number] / / [id number] [employer] Cornelius Synergy Xd Monorail 2.75mm 38mm 144cm Delivery System 1 Access [id number] - S0 - [id number] Implanted:Qty: 1 on 07/14/2024 by Xu Bhardwaj MD at [facility] [employer]Apart 11/27/2025 [id number] / 0 / [id number] Explanted Type Area [employer] Foreign Language Tutor Device Identifier Shelf Expiration Date Model / Serial / Lot [place] Craniomaxillofacial Leibinger [place] 2 2mm 5mm Self Tap Cross Pin Maxillofacial [id number] - [id number] Implanted:Qty: 8 on 12/05/2022 by Ion Vergara MD at [facility] Explanted:Qty: 8 on 01/10/2023 at [facility] Mandible Elvia Craniomaxillofacial 50- / / Stratford Craniomaxillofacial Leibinger [place] 2 Smart Lock 9 Hole Mandible Small Plate Bone [id number] - [id number] Implanted:Qty: 2 on 12/05/2022 by Ion Vergara MD at [facility] Explanted:Qty: 2 on 01/10/2023 at [facility] [place] Mandible Elvia Craniomaxillofacial [id number] / / Elvia Craniomaxillofacial Leibinger [place] 2 Smartlock 2mm 8mm Self Drill Lock 50 - [id number] Implanted:Qty: 10 on 12/05/2022 by Ion Vergara MD at [facility] Explanted:Qty: 10 on 01/10/2023 at [facility] [place] Mandible Elvia Craniomaxillofacial 50- / / Stratford Craniomaxillofacial 16 Hole Maxillofacial 1.5mm Mini Plate Bone [id number] - [id number] Implanted:Qty: 1 on 12/05/2022 by Ion Vergara MD at [facility] Explanted:Qty: 1 on 01/10/2023 by Ion Vergara MD at [facility] Mandible Stratford Craniomaxillofacial [id number] / / Elvia Craniomaxillofacial Leibinger [place] 2 2mm 8mm Lock Cross Pin Mandibular Screw [id number] - [id number] Implanted:Qty: 2 on 12/05/2022 by Ion Vergara MD at [facility] Explanted:Qty: 2 on 01/10/2023 at [facility] Mandible Stratford Craniomaxillofacial [id number] / / [place]ford Craniomaxillofacial Leibinger [place] 2 2mm 10mm Lock Cross Pin Maxillofacial Screw [id number] - [id number] Implanted:Qty: 2 on 12/05/2022 by Ion Vergara MD at [facility] Explanted:Qty: 2 on 01/10/2023 at [facility] [place] Mandible Elvia Craniomaxillofacial [id number] / / Elvia Craniomaxillofacial Leibinger [place] 2 2mm 12mm Lock Cross Pin Maxillofacial Screw [id number] - [id number] Implanted:Qty: 2 on 12/05/2022 by Ion Vergara MD at [facility] Explanted:Qty: 2 on 01/10/2023 at [facility] [place] Mandible Elvia Craniomaxillofacial [id number] / / Stratford Craniomaxillofacial Plate Mini 8mm Mndb 16 Hole Str Condensed 2mm Screw Bone Ti [id number] - [id number] Implanted:Qty: 1 on 12/05/2022 by Ion Vergara MD at [facility] Explanted:Qty: 1 on 01/10/2023 at [facility] Mandible Elvia Craniomaxillofacial [id number] / / Procedures Procedure Name Priority Date/Time Associated Diagnosis Comments TRANSESOPHAGEAL ECHO (WHIT) W DOPPLER/CF WO CONTRAST Routine 02/01/2025 9:58 AM CDT Paroxysmal atrial fibrillation (HCC) DEVICE CHECK - REMOTE Routine 01/11/2025 3:36 PM CDT Palpitations Status post placement of implantable loop recorder Syncope and collapse SVT (supraventricular tachycardia) LIPID PANEL Routine 01/04/2025 5:48 PM CDT ECG 12-LEAD Routine 12/22/2024 5:29 PM CDT WHIT GUIDANCE DURING CARDIAC STRUCTURAL INTVN [id number] Routine 12/22/2024 4:26 PM CDT PERC STACEY CLOSURE W/IMPLANT (WATCHMAN) [id number] Routine 12/22/2024 4:10 PM CDT Paroxysmal atrial fibrillation (HCC) POCT ACTIVATED CLOTTING TIME, HIGH RANGE Routine 12/22/2024 3:56 PM CDT IL AN PROCEDURE PLACEHOLDER Routine 12/22/2024 3:41 PM CDT IL AN ELECTIVE ENDOTRACHEAL AIRWAY Routine 12/22/2024 3:41 [...] tachycardia) from Last 3 Months Results * TRANSESOPHAGEAL ECHO (WHIT) W DOPPLER/CF WO CONTRAST (02/01/2025 9:58 AM CDT) Estimated EF 65-70 % CONS SCIMAGE Anatomical Region Laterality Modality Echocardiography 02/01/2025 9:05 AM CDT Narrative 02/01/2025 11:46 AM CDT [facility] [address] [place] [address] TRANSESOPHAGEAL ECHOCARDIOGRAM Patient Name: KATINA FISH : 1945 (79y 10m) Sex: F Study Date: 02/01/2025 09:05:53 AM Ht(Inch): 65 Wt(Lb): 116.01 BSA: 1.55 Telecommunications Field Technician: VICKI Location: [facility] Order Provider: TIGRE TRIANA BMI: 19.3 BP: 130/88 Ref Provider: TIGRE TRIANA - PROCEDURES: Transesophageal Echo Report: Transesophageal echocardiogram including 2D imaging, spectral doppler and color doppler was performed in the cardiac catheterization laboratory. The procedure was monitored with automatic blood pressure monitoring, ECG tracings, and pulse oximetry. Sedation was achieved by anesthesia using Propofol IV. The transesophageal probe was placed in the esophagus posterior to the heart without any complications. The patient tolerated the procedure well. INDICATIONS: I48.0 Paroxysmal atrial fibrillation. MEASUREMENTS: 2D/MM Value Range Estimated EF 65-70 % 2D/MM Value Range - FINDINGS: BP: Blood pressure: 130/88 mmHg. Left Ventricle: Grossly normal left ventricular systolic function based on limited views. Inadequate for detailed regional wall motion assessment. Ejection Fraction is estimated to be 65-70 %. Left ventricular diastolic function is indeterminate. Normal left ventricular cavity size. LV wall thickness is within normal limits. A sigmoid septum is present. Right Ventricle: Normal right ventricular size. Normal right ventricular systolic function. Left Atrium: The left atrium is normal in size. LA Appendage: STACEY occlusion device in situ, well seated with no annemarie-device flow seen and no thrombus visualized on external aspect of device. Right Atrium: The right atrium is normal in size. Atrial Septum: Normal atrial septum. Saline contrast study negative for R to L shunt. Mitral Valve: Mild mitral valve regurgitation. Both mitral valve leaflets appear mildly thickened. Mild mitral annular calcification. Mild systolic anterior motion of mitral valve. There is no evidence for significant mitral stenosis. Aortic Valve: Aortic cusps appear mildly calcified. Aortic cusps appear mildly sclerotic. Trileaflet aortic valve. There is trace aortic valve regurgitation. No aortic stenosis. Tricuspid Valve: Normal appearance of the tricuspid valve. TR envelope inadequate to estimate RVSP. There is mild tricuspid regurgitation. Pulmonic Valve: Grossly normal appearing pulmonic valve. No pulmonic stenosis. There is mild pulmonic regurgitation. Pericardium: Normal appearing pericardium. No pericardial effusion. Aorta: Normal caliber aortic root. Ascending aorta is normal in size. Descending aorta is normal. There is mild diffuse aortic atherosclerosis. IVC: The IVC is not well visualized. CONCLUSIONS: 1. Grossly normal left ventricular systolic function based on limited views. Inadequate for detailed regional wall motion assessment. Ejection Fraction is estimated to be 65-70 %. Left ventricular diastolic function is indeterminate. Normal left ventricular cavity size. LV wall thickness is within normal limits. A sigmoid septum is present. 2. Normal right ventricular size. Normal right ventricular systolic function. 3. Normal atrial septum. Saline contrast study negative for R to L shunt. 4. Mild mitral valve regurgitation. Both mitral valve leaflets appear mildly thickened. Mild mitral annular calcification. Mild systolic anterior motion of mitral valve. There is no evidence for significant mitral stenosis. 5. Aortic cusps appear mildly calcified. Aortic cusps appear mildly sclerotic. Trileaflet aortic valve. There is trace aortic valve regurgitation. No aortic stenosis. 6. Normal appearance of the tricuspid valve. TR envelope inadequate to estimate RVSP. There is mild tricuspid regurgitation. 7. STACEY occlusion device in situ, well seated with no annemarie-device flow seen and no thrombus visualized on external aspect of device. Electronically Signed By: Barak Calix MD PhD 02/01/2025 11:45:28 AM CDT Procedure Note Barak Calix MD PhD - 02/01/2025 [id number] [place] [address] TRANSESOPHAGEAL ECHOCARDIOGRAM Patient Name: KATINA FISH : 1945 (79y 10m) Sex: F Study Date: 02/01/2025 09:05:53 AM Ht(Inch): 65 Wt(Lb): 116.01 BSA: 1.55 Telecommunications Field Technician: VICKI Location: [facility] Order Provider: TIGRE TRIANA BMI: 19.3 BP: 130/88 Ref Provider: TIGRE TRIANA - PROCEDURES: Transesophageal Echo Report: Transesophageal echocardiogram including 2Dimaging, spectral doppler and color doppler was performed in the cardiaccatheterization laboratory. The procedure was monitored with automatic blood pressuremonitoring, ECG tracings, and pulse oximetry. Sedation was achieved by anesthesia usingPropofol IV. The transesophageal probe was placed in the esophagus posterior to the heartwithout any complications. The patient tolerated the procedure well. INDICATIONS: I48.0 Paroxysmal atrial fibrillation. MEASUREMENTS: 2D/MM Value Range Estimated EF 65-70 % 2D/MM Value Range - FINDINGS: BP: Blood pressure: 130/88 mmHg. Left Ventricle: Grossly normal left ventricular systolic function based onlimited views. Inadequate for detailed regional wall motion assessment. Ejection Fractionis estimated to be 65-70 %. Left ventricular diastolic function is indeterminate.Normal left ventricular cavity size. LV wall thickness is within normal limits. Asigmoid septum is present. Right Ventricle: Normal right ventricular size. Normal right ventricularsystolic function. Left Atrium: The left atrium is normal in size. LA Appendage: STACEY occlusion device in situ, well seated with noperi-device flow seen and no thrombus visualized on external aspect of device. Right Atrium: The right atrium is normal in size. Atrial Septum: Normal atrial septum. Saline contrast study negative for Rto L shunt. Mitral Valve: Mild mitral valve regurgitation. Both mitral valve leafletsappear mildly thickened. Mild mitral annular calcification. Mild systolic anteriormotion of mitral valve. There is no evidence for significant mitral stenosis. Aortic Valve: Aortic cusps appear mildly calcified. Aortic cusps appearmildly sclerotic. Trileaflet aortic valve. There is trace aortic valve regurgitation. Noaortic stenosis. Tricuspid Valve: Normal appearance of the tricuspid valve. TR envelopeinadequate to estimate RVSP. There is mild tricuspid regurgitation. Pulmonic Valve: Grossly normal appearing pulmonic valve. No pulmonicstenosis. There is mild pulmonic regurgitation. Pericardium: Normal appearing pericardium. No pericardial effusion. Aorta: Normal caliber aortic root. Ascending aorta is normal in size.Descending aorta is normal. There is mild diffuse aortic atherosclerosis. IVC: The IVC is not well visualized. CONCLUSIONS: 1. Grossly normal left ventricular systolic function based on limitedviews. Inadequate for detailed regional wall motion assessment. Ejection Fraction isestimated to be 65-70 %. Left ventricular diastolic function is indeterminate. Normal leftventricular cavity size. LV wall thickness is within normal limits. A sigmoid septum ispresent. 2. Normal right ventricular size. Normal right ventricular systolicfunction. 3. Normal atrial septum. Saline contrast study negative for R to Lshunt. 4. Mild mitral valve regurgitation. Both mitral valve leaflets appearmildly thickened. Mild mitral annular calcification. Mild systolic anterior motion of mitralvalve. There is no evidence for significant mitral stenosis. 5. Aortic cusps appear mildly calcified. Aortic cusps appear mildlysclerotic. Trileaflet aortic valve. There is trace aortic valve regurgitation. No aorticstenosis. 6. Normal appearance of the tricuspid valve. TR envelope inadequate toestimate RVSP. There is mild tricuspid regurgitation. 7. STACEY occlusion device in situ, well seated with no annemarie-device flow seenand no thrombus visualized on external aspect of device. Electronically Signed By: Barak Calix MD PhD 02/01/2025 11:45:28 AM CDT us Tigre Triana MD CV ECHO PROCEDURES Radha l Result * DEVICE CHECK - REMOTE (01/11/2025 3:36 PM CDT) Anatomical Region Laterality Modality Other Narrative 01/29/2025 3:59 PM CDT [employer] LNQ22 Loop Recorder. Dx; Syncope, Tachycardia, Palpitations. DOI 06/15/2022-Fleissner. Mirza. [employer] remote monitoring Routine ILR remote. Normal device function. Battery function-good Presenting rhythm: NSR Medications: ASA 81 mg, clopidogrel 75 mg, diltiazem 120 mg, lisinopril 40 mg, watchman Counters since last scheduled transmission on 11/30/24. --0 Tachy --0 Lorne --11 Pause - most pauses 3 seconds in duration, however there was one 4 second pause and one 5 second pause noted on EGM. --0 Symptom --49 AF - EGM demonstrates AFib with accompanying RVR during some episodes with the fastest RVR ventricular rate at 167 beats per minute. Longest episode was 1 hour and 24 minutes in duration. AFib burden 2.4% See scanned report. [facility] [facility] remote f/u 02/22/25. Rickey Andrade, RN us Todd Cedeno MD CV CARDIAC SERVICES PROCE JOANN Final Result * Lipid panel (01/04/2025 5:48 PM CDT) SCRIBED Cholesterol, Total 171 30 - 199 mg/dL EXTERNAL LAB SCRIBED Triglycerides 39 <=149 mg/dL EXTERNAL LAB SCRIBED HDL 104 >=40 mg/dL EXTERNAL LAB SCRIBED LDL 39 <=129 mg/dL EXTERNAL LAB Scribed Non-HDL Cholesterol EXTERNAL LAB Comment:Not performed by lab . SCRIBED Total Cholesterol/HDL Ratio 171 NONE EXTERNAL LAB Blood us Historical Provider LAB BLOOD ORDERABLES Edit ed Result - Final EXTERNAL LAB * ECG 12 lead (12/22/2024 5:29 PM CDT) 12/22/2024 5:29 PM CDT Narrative [facility] - 12/23/2024 10:59 AM CDT Vent Rate: 66 bpm RR Interval: 907 msec IL Interval: 236 msec QRS Duration: 125 msec QT Interval: 391 msec QTC Interval: 404 msec P-R-T Humboldt: 59 - -50 - 14 degrees IMPRESSION: SINUS RHYTHM WITH FIRST DEGREE AV BLOCK LEFT ANTERIOR FASCICULAR BLOCK [QRS AXIS <= -45, QR IN I, RS IN II] POSSIBLE ANTERIOR MYOCARDIAL INFARCTION (MINIMAL R-WAVE PROGRESSION PRESENT) ABNORMAL ECG Electronically Signed By: Barak Coombs MD [facility] us Tigre Triana MD ECG ORDERABLES Final R esult [facility] * WHIT Guidance During Cardiac Structural Intvn [id number] (12/22/2024 4:26 PM CDT) Anatomical Region Laterality Modality Echocardiography 12/22/2024 3:23 PM CDT Narrative 12/22/2024 5:55 PM CDT [facility] [address] [place] [address] TRANSESOPHAGEAL ECHOCARDIOGRAM Patient Name: KATINA FISH : 1945 (79y 8m) Sex: F Study Date: 12/22/2024 03:23:12 PM Ht(Inch): 65 Wt(Lb): 117 BSA: 1.56 Telecommunications Field Technician: DANIELLE Location: 6152 Order Provider: TIGRE TRIANA [...] end of the case. Predominant flow is yasx-ce-chana. Mitral Valve: Normal appearance of the mitral [...] end of the case. Predominant flow is erco-sw-bogix. 4. Normal appearance of the mitral valve. [...] around the device. Electronically Signed By: Geovanny Harris MD [email or web address] a 12/22/2024 5:10:45 PM CDT Procedure Note Geovanny Harris MD - 12/22/2024 [facility] [address] [address] TRANSESOPHAGEAL ECHOCARDIOGRAM Patient Name: KATINA FISH : 1945 (79y 8m) Sex: F Study Date: 12/22/2024 03:23:12 PM Ht(Inch): 65 Wt(Lb): 117 BSA: 1.56 Telecommunications Field Technician: DANIELLE Location: 6152 Order Provider: TIGRE TRIANA [...] the end of thecase. Predominant flow is yiwl-re-sipuk. Mitral Valve: Normal appearance of the mitral [...] the end of the case.Predominant flow is njgm-ss-goawy. 4. Normal appearance of the mitral valve. [...] around the device. Electronically Signed By: Geovanny Harris MD mobap 12/22/2024 5:10:45 PM CDT us Tigre Triana MD CV ECHO PROCEDURES Radha l Result * PERC STACEY CLOSURE W/IMPLANT (WATCHMAN) [id number] (12/22/2024 4:10 PM CDT) Anatomical Region Laterality Modality X-Ray Angiograph y us Tigre Triana MD CV ELECTROPHYSIOLOGY [place] OCS Final Result * (ABNORMAL) POC Activated Clotting Time, High Range (12/22/2024 3:56 PM CDT) ACT 390(H) 87 - 138 sec Blood 12/22/2024 3:56 PM CDT 12/22/2024 3:56 PM CDT us Tigre Triana MD LAB BLOOD ORDERABLES Fi nal Result [facility] [address] Department of Laboratories [place], [place] [id number] * IL AN ELECTIVE ENDOTRACHEAL AIRWAY, IL AN PROCEDURE PLACEHOLDER (12/22/2024 3:41 PM CDT) Narrative Oma oMntes De Oca CRNA - 12/22/2024 3:41 PM CDT Oma Montes De Oca CRNA 12/22/2024 3:53 PM Airway Patient location: OR Urgency: elective Date/time: 12/22/2024 3:33 PM Indications for airway management: anesthesia Difficult airway: no Staff: Placed by: Anesthesiologist: Ion Mccollum MD HOCKEY SCOUT: Oma Montes De Oca CRNA Emergent airway [...] No soft tissue damage, no dental damage. us Ion Mccollum MD ANESTHESIA ORDERABLES Edited Result - Final * ECG 12 lead (12/22/2024 2:52 PM CDT) 12/22/2024 2:52 PM CDT Narrative [facility] - 12/23/2024 9:32 AM CDT Vent Rate: 67 bpm RR Interval: 889 msec IL Interval: 231 msec QRS Duration: 110 msec QT Interval: 379 msec QTC Interval: 394 msec P-R-T H[place]t: 53 - -54 - 28 degrees IMPRESSION: SINUS RHYTHM WITH FIRST DEGREE AV BLOCK LEFT ANTERIOR FASCICULAR BLOCK [QRS AXIS <= -45, QR IN I, RS IN II] POOR R-WAVE PROGRESSION; POSSIBLE ANTERIOR MYOCARDIAL INFARCTION ABNORMAL ECG Electronically Signed By: Barak Coombs MD [facility] Tigre Triana MD ECG ORDERABLES Final R esult Performing Organization Address City/[facility] Co de Phone Number [facility] [employer] [facility] * Type and screen (12/22/2024 1:58 PM CDT) ABO Rh A Negative Timo, indirect Negative [facility] Blood 12/22/2024 1:58 PM CDT 12/22/2024 2:24 PM CDT [facility] - 12/22/2024 3:14 PM CDT Has the patient had Daratumumab or Isatuximab in the past 6 months?->Unknown Tigre Triana MD LAB BLOOD BANK TEST ORD ERABLES Final Result Performing Organization Address [facility] de Phone Number [facility] [address] Department [place] [address] * ECG 12 lead (12/10/2024 10:03 AM CDT) Tigre Triana MD ECG ORDERABLES Final R esult * DEVICE CHECK - REMOTE (12/01/2024 10:58 AM CDT) Anatomical Region Laterality Modality Other Narrative 12/15/2024 12:15 PM CDT Med[employer]onic LNQ22 Loop Recorder. Dx; [...] scanned report. [facility] remote f/u 01/11/25. Rickey Andrade RN us Todd Cedeno MD CV CARDIAC SERVICES PROCE [facility] Final Result from Last 3 Months Insurance MEDICARE [facility] MEDICARE BLUE CROSS MEDICARE SUPPLEMENT MEDICARE FOR[facility]LY [facility] Advance Directives For more information, please contact: [phone] Documents on File Type Date Recorded Patient Sfdc Consultant Jacquelyn anation ADVANCE DIRECTIVE 08/21/2012 12:00 AM TJ Leger WILL ADVANCE DIRECTIVE 08/21/2012 12:00 AM [employer]/MEDICAL * Full Code (Latest Code Status on File) Date Activated Date Inactivated Comments 07/14/2024 12:14 PM 07/15/2024 6:47 PM * Full Code Date Activated Date Inactivated Comments 12/04/2022 12:40 AM 12/07/2022 8:03 PM Care Teams Occupational Therapist Per Diem Relationship Specialty Start Date End Date Rachel Friend NP [address] [place] [address] PCP - General Family Medicine 11/26/23 Todd Cedeno MD [address] [place] [address] Consulting Physician Cardiology 07/15/24
--- OUTSIDE RECORDS SUMMARY | 2025-02-12 00:25 | XMS_ITS | Encounter Summary ---
Author Organization [facility] Facility Care Team Providers Care Equipment Service Associate Name Role Phone Tara Hudson MD Primary Care Provider [phone] Gege Herrera MD Primary Care Provider Rachel Friend ROASTER SUPERVISOR Primary Care Provider [phone] Emily Clements ROASTER SUPERVISOR Primary Care Provider [phone] Rachel Friend ROASTER SUPERVISOR Primary Care Provider [phone] Todd Cedeno MD Unavailable [phone] Encounter Details Date Type Department Care Team (Latest Contact Info) Description 03/05/2016 Orders Only [facility] CLINCONV ProviderAlhaji MD [address] [place] [address] Social History Tobacco Use Types Packs/Day Years Used Date Smoking Tobacco: Never Assessed Comments Unknown Sex and Gender Information Value Date Recorded Sex Assigned at Not on file Legal Sex Female 1:32 AM WELDING MACHINE TENDER Gender Identity Female 12/12/2018 8:34 AM CDT Sexual Orientation Straight 12/12/2018 8: 34 AM CDT documented as of this encounter Plan of Treatment Not on file documented as of this encounter Procedures Procedure Name Priority Date/Time Associated Diagnosis Comments PROCEDURE - RESULT 03/05/2016 12 :00 AM WELDING MACHINE TENDER PROCEDURE - RESULT 03/05/2016 12 :00 AM WELDING MACHINE TENDER documented in this encounter Results * PROCEDURE - RESULT (03/05/2016 12:00 AM WELDING MACHINE TENDER) Narrative 03/05/2016 12:00 AM WELDING MACHINE TENDER Ordered by an unspecified provider. us Historical Provider Final Res ult * PROCEDURE - RESULT (03/05/2016 12:00 AM WELDING MACHINE TENDER) Narrative 03/05/2016 12:00 AM WELDING MACHINE TENDER Ordered by an unspecified provider. us Historical Provider Final Res ult documented in this encounter Visit Diagnoses Not on filedocumented in this encounter Care Teams Equipment Service Associate Relationship Specialty Start Date End Date Tara Hudson MD [address] [address] PCP - General 12/17/16 11/02/19 Gege Herrera MD [address] [address] PCP - General Family Medicine 11/03/19 10/16/20 Rachel Friend NP [address] [address] PCP - General Family Medicine 10/17/20 01/09/23 Emily Clements NP [address] [place] [address] PCP - General Nurse Practitioner 01/10/23 11/25/23 Rachel Friend, AIRAM [address] [place] [address] PCP - General Family Medicine 11/26/23 Todd Cedeno MD [address], [address] [place] [address] Consulting Physician Cardiology 07/15/24 documented as of this encounter
--- OUTSIDE RECORDS SUMMARY | 2025-02-12 00:25 | XMS_ITS | Encounter Summary ---
Author Organization [facility] Facility Care Team Providers Care Cloth Worker Name Role Phone Tara Hudson MD Primary Care Provider [phone] Gege Herrera MD Primary Care Provider Rachel Friend LITHOGRAPHIC PHOTOGRAPHER APPRENTICE Primary Care Provider [phone] Emily Clements LITHOGRAPHIC PHOTOGRAPHER APPRENTICE Primary Care Provider [phone] Rachel Friend LITHOGRAPHIC PHOTOGRAPHER APPRENTICE Primary Care Provider [phone] Todd Cedeno MD Unavailable [phone] Encounter Details Date Type Department Care Team (Latest Contact Info) Description 12/02/2017 Orders Only [facility] CLINCONV ProviderAlhaji MD [address] [place] [address] Social History Tobacco Use Types Packs/Day Years Used Date Smoking Tobacco: Never Assessed Comments Unknown Sex and Gender Information Value Date Recorded Sex Assigned at Not on file Legal Sex Female 1:32 AM CHICKEN CATCHER Gender Identity Female 12/12/2018 8:34 AM CDT [...] on filedocumented in this encounter Care Teams Cloth Worker Relationship Specialty Start Date End Date Tara Hudson MD [address] [facility] [address] [place] [address] PCP - General 12/17/16 11/02/19 Gege Herrera MD [address] [address] PCP - General Family Medicine 11/03/19 10/16/20 Rachel Friend NP [address] [facility] [address] [place] [address] PCP - General Family Medicine 10/17/20 01/09/23 Emily Clements NP [address] [place] [address] PCP - General Nurse Practitioner 01/10/23 11/25/23 Rachel Friend, AIRAM [address] [place] [address] PCP - General Family Medicine 11/26/23 Todd Cedeno MD [address] [place] [address] Consulting Physician Cardiology 07/15/24 documented as of this encounter
--- OUTSIDE RECORDS SUMMARY | 2025-02-12 00:25 | XMS_ITS | Encounter Summary ---
Author Organization [facility] Facility Care Team Providers Care Keg Varnisher Name Role Phone Tara Hudson MD Primary Care Provider [phone] Gege Herrera MD Primary Care Provider Rachel Friend OVEN STRIPPER Primary Care Provider [phone] Emily Clements OVEN STRIPPER Primary Care Provider [phone] Rachel Friend OVEN STRIPPER Primary Care Provider [phone] Todd Cedeno MD Unavailable [phone] Encounter Details Date Type Department Care Team (Latest Contact Info) Description 01/04/2016 Orders Only [facility] CLINCONV ProviderAlhaji MD [address] [place] [address] Social History Tobacco Use Types Packs/Day Years Used Date Smoking Tobacco: Never Assessed Comments Unknown Sex and Gender Information Value Date Recorded Sex Assigned at Not on file Legal Sex Female 1:32 AM CONFORMAL PAD FORMER Gender Identity Female 12/12/2018 8:34 AM CDT [...] AM CDT Ordered by an unspecified provider. [facility] Provider Final Res ult * PROCEDURE - RESULT (01/04/2016 12:00 AM CDT) Narrative 01/04/2016 12:00 AM CDT Ordered by an unspecified provider. [facility] Provider Final Res ult documented in this encounter Visit Diagnoses Not on filedocumented in this encounter Care Teams Keg Varnisher Relationship Specialty Start Date End Date Tara Hudson MD [address] [address] PCP - General 12/17/16 11/02/19 Gege Herrera MD [address] [address] PCP - General Family Medicine 11/03/19 10/16/20 Rachel Friend NP [address] [address] PCP - General Family Medicine 10/17/20 01/09/23 Emily Clements NP [address] [place] [address] PCP - General Nurse Practitioner 01/10/23 11/25/23 Rachel Friend NP [address] [place] [address] PCP - General Family Medicine 11/26/23 Todd Cedeno MD [address] [place] [address] Consulting Physician Cardiology 07/15/24 documented as of this encounter
--- OUTSIDE RECORDS SUMMARY | 2025-02-12 00:25 | XMS_ITS | Clinical Summary ---
Author Organization [facility] Address [address] [place] [address] Care Team Providers Care Blasting Coal Miner Name Role Phone Tara Hudson MD Primary Care Provider [phone] Source Comments [facility],non-owned Affiliates and Associated Physician Practices is amultiple site organization consisting of ambulatory clinics and hospital sitesin [place], [place], [place] and [place]. This disclosure is being madepursuant to the Care Everywhere program and may not contain all information available regarding this patient. Last updated 18.[facility] Allergies Active Allergy Reactions Criticality Noted Date [...] on file Legal Sex Female 5:57 PM ANODE CREW SUPERVISOR Gender Identity Not on file Sexual Orientation Not on file Last Filed Vital Signs Vital Sign Reading Time Taken Comments Blood Pressure 128/72 05/27/2018 12:26 PM ANODE CREW SUPERVISOR Pulse 80 05/27/2018 12:26 PM ANODE CREW SUPERVISOR Temperature 37 C (98.6 F) 05/27/2018 12:26 PM ANODE CREW SUPERVISOR Respiratory Rate 16 05/27/2018 12:26 PM ANODE CREW SUPERVISOR Oxygen Saturation 100% 05/27/2018 12:26 PM ANODE CREW SUPERVISOR Inhaled Oxygen Concentration - - Weight 52.2 kg (115 lb) 05/27/2018 12:26 PM ANODE CREW SUPERVISOR Height 162.6 cm (5' 4) 05/27/2018 12:26 PM ANODE CREW SUPERVISOR Body Mass Index 19.74 05/27/2018 12:26 PM ANODE CREW SUPERVISOR Plan of Treatment Health Maintenance Due Date [...] topic Insurance MEDICARE MEDICARE MEDICARE Care Teams Blasting Coal Miner Relationship Specialty Start Date End Date Tara Hudson MD [address] [place] [address] [place] [address] PCP - General 12/12/12
--- OUTSIDE RECORDS SUMMARY | 2025-02-12 00:25 | XMS_ITS | Clinical Summary ---
Author Organization [employer] [id number] [facility] Address [address] [place] [address] Care Team Providers Care Tube Maker Name Role Phone Emily Tejada MD Primary [...] Comments Blood Pressure 132/82 05/31/2022 11:05 AM INSTALLER TECHNICIAN Pulse 100 12/22/2021 12:26 PM CDT Temperature 36.7 C (98.1 F) 01/02/2022 10:54 AM CDT Respiratory Rate 16 01/02/2022 10:54 AM CDT Oxygen Saturation 100% 12/22/2021 12:26 PM CDT Inhaled Oxygen Concentration - - Weight 52.7 kg (116 lb 3.2 oz) 02/05/2023 11:35 AM CDT Height 160 cm (5' 3) 05/31/2022 10:59 AM INSTALLER TECHNICIAN Body Mass Index 20.58 05/31/2022 10:59 AM INSTALLER TECHNICIAN Plan of Treatment Health Maintenance Due [...] 01/20/2015, 12/21/2009 Medical Devices Implanted Type Area Machine Container Washer Device Identifier Shelf Expiration Date Model / Serial / Lot Infuse Protein Kit Lg Ii [id number] - Sna Implanted:Qty: 1 on 12/19/2021 by Biju Littlejohn MD at [facility] N/A: Spine Lumbar [employer] SOFAMOR DANEK 03/21/2023 [id number] / NA / [id number] Description:CHECKED BY LG ON 12.20.21 REQ#[id number] Stimulan Caso4 Kt 10ml 620-010 - [id number] Implanted:Qty: 1 on 12/19/2021 by Biju Littlejohn MD at [facility] [employer] 10/19/2024 620-010 / / [id number] Description:CHECKED BY LG ON 12.20.21 REQ#[id number] Spacer Catalyft Pl 7mm Xpndble Strt [id number] - [id number] Implanted:Qty: 1 on 12/19/2021 by Biju Littlejohn MD at [facility] N/A: Spine Lumbar [employer]- SOFAMOR DANEK 10/30/2029 [id number] / / [id number] Hemostatic Surgiflo 8ml W/ Thrombin 2994 - Sn/A Implanted:Qty: 1 on 12/19/2021 by Biju Littlejohn MD at [facility] Hemostatic N/A: Spine Lumbar [employer] 01/19/2023 2994 / N/A / [id number] Hemostatic Surgiflo 8ml W/ Thrombin 2994 - [id number] Implanted:Qty: 1 on 12/19/2021 by Biju Littlejohn MD at [facility] Hemostatic N/A: Spine Lumbar [employer] 09/19/2022 2994 / / [id number] Cassandra Spacer 7420-0922-N Tas 7 Dg Lg 10mm Implanted:Qty: 1 on 12/19/2021 by Biju Littlejohn MD at [facility] Other N/A: Spine Lumbar [employer] SOF[employer]OR [employer]ANEK 07/04/2024 [id number] / / [id number] Description:1X ADD Cassandra Spacer [id number] Tas 7dg Std 10mm Implanted:Qty: 1 on 12/19/2021 by Biju Littlejohn MD at [facility] Other N/A: Spine Lumbar [employer]K [id number] / / [id number] Description:1X ADD Terence Cp4 Str Ti 5.8e733nd [id number] - [id number] Implanted:Qty: 1 on 12/19/2021 by Biju Littlejohn MD at [facility] Terence N/A: Spine Lumbar [employer]OR [employer]ANEK [id number] / / Description:load no: 227 227 05 sterilized: [id number] Screw Cdh 7.5x35mm 5.5/6.0 Mas Cc [id number] - [id number] Implanted:Qty: 3 on 12/19/2021 by Biju Littlejohn MD at [facility] Screw N/A: Spine Lumbar [employer]K [id number] / / Description:load no: 227 227 05 sterilized: [id number] Screw Cdh 7.5x40mm 5.5/6.0 Mas Cc [id number] - [id number] Implanted:Qty: 2 on 12/19/2021 by Biju Littlejohn MD at [facility] N/A: Spine Lumbar [employer] [id number] / / Description:load no: 227 227 05 sterilized: [id number] Screw [id number] 5.5 Mas 7.5x25cc Implanted:Qty: 1 on 12/19/2021 by Biju Littlejohn MD at [facility] N/A: Spine Lumbar [employer] 11/10/2027 [id number] / / [id number] Description:1X ADD Screw [id number] Bs Cnmas 8.5x80 T/C Implanted:Qty: 2 on 12/19/2021 by Biju Littlejohn MD at [facility] N/A: Spine Lumbar [employer] 12/19/2021 [id number] / / [id number] Description:1X ADD Screw Endoskeleton 5.5x25mm Tas 7083-7567 - [id number] Implanted:Qty: 3 on 12/19/2021 by Biju Littlejohn MD at [facility] N/A: Spine Lumbar [employer] SOF[employer]ANEK [id number] / / Description:load [id number] da te: 12/19/21 YANCI REQ#[id number] Screw Solera 5.5/6.0 Breakoff [id number] - [id number] Implanted:Qty: 12 on 12/19/2021 by Biju Littlejohn MD at [facility] N/A: Spine Lumbar [employer] [id number] / / Description:load no: 227 227 05 sterilized: [id number] Screw Cdh 5.5x45mm 5.5/6.0 Mas Cc [id number] - [id number] Implanted:Qty: 4 on 12/19/2021 by Biju Littlejohn MD at [facility] N/A: Spine Lumbar [employer] [id number] / / Description:load no: 227 227 05 sterilized: [id number] Josh Dbm Dbf 6ml [id number] - [id number] Implanted:Qty: 1 on 12/19/2021 by Biju Littlejohn MD at [facility] N/A: Spine Lumbar [employer]K 11/10/2023 [id number] / [id number] / Description:CHECKED BY LG ON 12.20.21 REQ#[id number] Josh Dbm Dbf 6ml [id number] - [id number] Implanted:Qty: 1 on 12/19/2021 by Biju Littlejohn MD at [facility] N/A: Spine Lumbar [employer] 11/10/2023 [id number] / [id number] / Description:CHECKED BY LG ON 12.20.21 REQ#[id number] Cassandra Spacer [id number] Tas 12d Std 12mm Implanted:Qty: 1 on 12/19/2021 by Biju Littlejohn MD at [facility] N/A: Spine Lumbar [employer] [id number] / / [id number] Description:1X ADD Insurance MEDICARE PART A AND B [facility] Advance Directives For more information, please contact: [phone] Documents on File Type Date Recorded Patient Casino Change Attendant Expl anation Advance Directive Living Will 02/04/2023 10:08 AM Advance Directive POA 05/29/2022 12:52 PM Advance Directive POA 10/18/2021 10:07 AM * Full Code (Latest Code Status on File) Date Activated Date Inactivated Comments 12/19/2021 7:20 PM 12/22/2021 4:17 PM * Full Code Date Activated Date Inactivated Comments 12/19/2021 3:08 PM 12/19/2021 7:20 PM Care Teams Tube Maker Relationship Specialty Start Date End Date Emily Tejada MD PCP - General Family Practice 01/14/20 Jade Bean Cardiovascular Disease 10/10/21
--- OUTSIDE RECORDS SUMMARY | 2025-02-12 00:25 | XMS_ITS | Encounter Summary ---
Author Organization [facility] Healthcare Address [address] [place] [address] Care Team Providers Care Lens Hardener Name Role Phone Rachel Friend NP Primary Care Provider [phone] Todd Cedeno MD Unavailable [phone] Encounter Details Date Type Department Care Team (Late st Contact Info) Description 06/15/2024 Orders Only [facility] Health Information Management [address] [place] [id number] Scanning, Provider Social History Tobacco Use [...] on file Legal Sex Female 1:32 AM RN CLINICAL COORDINATOR Gender Identity Female 12/12/2018 8:34 AM CDT [...] on filedocumented in this encounter Care Teams Lens Hardener Relationship Specialty Start Date End Date Rachel Friend NP [address] [place] [address] PCP - General Family Medicine 11/26/23 Todd Cedeno MD [address] [facility] [address] [place] [address] Consulting Physician Cardiology 07/15/24 documented as of this encounter
--- OUTSIDE RECORDS SUMMARY | 2025-02-12 00:25 | XMS_ITS | Encounter Summary ---
Author Organization [facility] Facility Care Team Providers Care Mold Breaker Name Role Phone Tara Hudson MD Primary Care Provider [phone] Gege Herrera MD Primary Care Provider Rachel Friend COMBER OPERATOR Primary Care Provider [phone] Emily Clements COMBER OPERATOR Primary Care Provider [phone] Rachel Friend COMBER OPERATOR Primary Care Provider [phone] Todd Cedeno MD Unavailable Encounter Details Date Type Department Care Team (Latest Contact Info) Description 11/25/2017 Orders Only [facility] CLINCONV ProviderAlhjai MD [address] [place] [address] Social History Tobacco Use Types Packs/Day Years Used Date Smoking Tobacco: Never Assessed Comments Unknown Sex and Gender Information Value Date Recorded Sex Assigned at Not on file Legal Sex Female 1:32 AM NAILER HAND Gender Identity Female 12/12/2018 8:34 AM [...] on filedocumented in this encounter Care Teams Mold Breaker Relationship Specialty Start Date End Date Tara Hudson MD [address] [facility] [address] [place] [address] PCP - General 12/17/16 11/02/19 Gege Herrera MD [address] [address] PCP - General Family Medicine 11/03/19 10/16/20 Rachel Friend NP [address] [facility] [address] [place] [address] PCP - General Family Medicine 10/17/20 01/09/23 Emily Clements NP [address] [place] [address] PCP - General Nurse Practitioner 01/10/23 11/25/23 Rachel Friend NP [address] [place] [address] PCP - General Family Medicine 11/26/23 Todd Cedeno MD [address] [place] [address] Consulting Physician Cardiology 07/15/24 documented as of this encounter
--- OUTSIDE RECORDS SUMMARY | 2025-02-12 00:25 | XMS_ITS | Encounter Summary ---
Author Organization [facility] Facility Care Team Providers Care Rim Roller Setter Name Role Phone Tara Hudson MD Primary Care Provider [phone] Gege Herrera MD Primary Care Provider Rachel Friend FRICKERTRON CHECKER Primary Care Provider [phone] Emily Clements FRICKERTRON CHECKER Primary Care Provider [phone] Rachel Friend FRICKERTRON CHECKER Primary Care Provider [phone] Todd Cedeno MD Unavailable [phone] Encounter Details Date Type Department Care Team (Latest Contact Info) Description 02/06/2016 Orders Only [facility] CLINCONV ProviderAlhaji MD [address] [place] [address] Social History Tobacco Use Types Packs/Day Years Used Date Smoking Tobacco: Never Assessed Comments Unknown Sex and Gender Information Value Date Recorded Sex Assigned at Not on file Legal 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 Gender Identity Female 12/12/2018 8:34 AM CDT [...] on filedocumented in this encounter Care Teams Rim Roller Setter Relationship Specialty Start Date End Date Tara Hudson MD [address] [address] PCP - General 12/17/16 11/02/19 Gege Herrera MD [address] [address] PCP - General Family Medicine 11/03/19 10/16/20 Rachel Friend NP [address] [facility] [address] [place] [address] PCP - General Family Medicine 10/17/20 01/09/23 Emily Clements NP [address] [place] [address] PCP - General Nurse Practitioner 01/10/23 11/25/23 Rachel Friend, AIRAM [address] [place] [address] PCP - General Family Medicine 11/26/23 Todd Cedeno MD [address] [place] [address] Consulting Physician Cardiology 07/15/24 documented as of this encounter
--- OUTSIDE RECORDS SUMMARY | 2025-02-12 00:26 | XMS_ITS | Encounter Summary ---
Author Organization [facility] Healthcare Address [address] [place] [address] Care Team Providers Care Reimbursement Consultant Name Role Phone Rachel Friend NP Primary Care Provider [phone] Todd Cedeno MD Unavailable Encounter Details Date Type Department Care Team (Late st Contact Info) Description 01/19/2025 Telephone [facility] Medical Group Cardiology [address] [place] [address] Todd Cedeno MD [address] [facility] [address] [place] [address] Social History Tobacco Use Types Packs/Day Years Used Date Smoking Tobacco: Never Cigarettes Smokeless Tobacco: Never Alcohol Use Standard Drinks/Week Comments Yes 0 (1 standard drink = 0.6 oz pur e alcohol) [place] Utilities Answer Date Recorded In the past 12 months has [employer] electric, gas, oil, or water company threatened to shut off services in your home? No 07/15/2024 Social Connection and Isolation Panel Answer Date Recorded Frequency of Communication with Friends and Fami ly Not on file 07/15/2024 How often do you get togethe r with friends or relatives? Three times a week 07/15/2024 How often do you attend chur ch or adventist services? 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 Pt states her sodium was 127. Advised pt to discuss further with PCP since they are the ones ordering the labs. Pt also states that her SGOT is elevated. Advised pt to have PCP fax labs to our office for MAF to review at next office visit. Pt verbalizes understanding. * Telephone Encounter - Jayla Koenig - 01/19/2025 11:19 AM CDT Patient called in and states that she recently had lab work done. Her sodium level is at 126 and states that her PCP is quite worried about it. She also states that her Chloride level is below normal. She is inquiring to find out if she can do any type of electrolyte powders or anything that can help with this matter. Requesting a call back to discuss. Please advise. Thank you. Contact : [phone] documented in this encounter Plan of Treatment Not on file documented as of this encounter Visit Diagnoses Not on filedocumented in this encounter Care Teams Reimbursement Consultant Relationship Specialty Start Date End Date Rachel Friend NP [address] [place] [address] PCP - General Family Medicine 11/26/23 Todd Cedeno MD [address], [address] [place] [address] Consulting Physician Cardiology 07/15/24 documented as of this encounter
--- OUTSIDE RECORDS SUMMARY | 2025-02-12 00:26 | XMS_ITS | Clinical Summary ---
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 Not on file Not on file Not on file Last Filed Vital Signs Vital Sign Reading Time Taken Comments Blood Pressure 148/89 05/09/2022 11:53 AM SKI TOPPER Pulse 93 05/09/2022 11:53 AM SKI TOPPER Temperature 36.6 C (97.8 F) 05/09/2022 11:53 AM SKI TOPPER Respiratory Rate 18 04/20/2022 8:01 AM SKI TOPPER Oxygen Saturation 99% 04/20/2022 8:01 AM SKI TOPPER Inhaled Oxygen Concentration - - Weight 51.9 kg (114 lb 6.4 oz) 05/09/2022 11:53 AM SKI TOPPER Height 160 cm (5' 3) 05/09/2022 11:53 AM SKI TOPPER Body Mass Index 20.27 05/09/2022 11:53 AM SKI TOPPER Plan of Treatment Health Maintenance Due Date Last Done Comments Hepatitis C 1963 Zoster Vaccines (2 of 3) 07/25/2007 05/30/2007 Annual Medicare Wellness Visit 2011 Dexa Scan (General) 2011 DTaP, Tdap and Td Vaccines (2 - Td or Tdap) 08/22/2019 08/21/2009 RSV Immunization or 60+ Years (1 - 1-dose 75+ series) 2021 COVID-19 Vaccine ( season) 2024 07/26/2021, 02/14/2021, 07/08/2020, Additional history exists Influenza Adult (#1) 2025 12/28/2020, 01/20/2019, 01/30/2018, Additional history exists Pneumococcal Vaccine: 50+ Years Completed 02/13/2017, 02/03/2015, 01/20/2015, Additional history exists Hepatitis A Vaccines Aged Out No long er eligible based on patient's age to complete this topic Meningococcal B Vaccine Aged Out No l onger eligible based on patient's age to complete this topic Meningococcal Vaccine Aged Out No tevin rodrick eligible based on patient's age to complete this topic RSV Immunizations Under 20 Months Aged Out No longer eligible based on patient's age to complete this topic Insurance MEDICARE [facility] Care Teams Wood Preparation Supervisor Relationship Specialty Start Date End Date Rachel Friend FNP PCP - General Nurse Practitioner Family 07/20/21
--- OUTSIDE RECORDS SUMMARY | 2025-02-12 00:26 | XMS_ITS | Data Portability ---
Author Organization [facility] Address [address] [place] [address] Assessment No assessment recorded. Plan of Treatment Reminders Order Date Submit Date Provider Last Modified By Organization Details Last Modified Time Details Appointments None recorde d. Lab BMP, serum or plasma 2018 [facility], [address], [address], [place], [address], 9 03:46:46 lipid panel, serum 2018 019 [facility], [address], [address], [place], [address], 9 03:46:45 AST/SGO T (aspart ate aminotr ansfera se), serum or plasma 2018 019 [facility], [address], [address], [place], [address], 9 03:46:46 lipid panel, serum 2017 018 [facility], [address], [address], [place], [address], 8 12:34:54 CMP, serum or plasma 2017 018 [facility], [address], [place], [address], 8 12:34:55 CBC w/ auto diff 2017 018 [facility], [address], [address], [place], [address], 8 12:34:55 TSH, serum or plasma 2017 018 [facility], [address], [address], [place], [address], 8 12:34:56 C-react vickie protein , quantit ative, serum or plasma 2017 018 [place] [facility], [address], [address], [place], [address], 8 12:34:56 BMP, serum or plasma 2016 017 [place] [facility], [address], [address], [place], [address], 7 06:23:16 lipid panel, serum 2016 017 [facility], [address], [address], [place], [address], 7 06:23:16 AST/SGO T (aspart ate aminotr ansfera se), serum or plasma 2016 017 [facility], [address], [address], [place], [address], 7 06:23:16 Referral hand surgeon refer l - Please contact patient for appt- patient gone from 9 through 12/05/19 19 2018 019 deandre Wong MD, [address] [facility] , [address], [place], [address], 9 10:59:33 hand surgeon referra bull - establi shed patient ; appt schedul ed 2017 018 TEJAL Wong MD, [address] [facility] , [address], [place], [address], 8 17:20:49 Procedures destruc tion of benign lesions (PROC) 2016 017 wandres Not available 7 15:20:01 Surgeries None recorde d. Imaging [facility] 2018 [facility], [address], [address], [place], [address], 9 09:24:08 MAMMO, screeni ng, digital , bilater al 2016 017 thoskinsma Not available 7 10:31:25 Medication Orders diclofe nac sodium 50 mg tablet, delayed release 2018 019 INTERFACE [facility], [facility] [place], [address], 9 11:55:06 methoca rbamol 750 mg tablet 2018 019 [address], [address] [place], [address], 9 13:52:37 lisinop ril 10 mg tablet 2018 019 INTERFACE [facility], [facility] [place], [address], 9 11:55:07 meclizi ne 25 mg tablet 2017 018 [address], [address] [place], [address], 9 11:53:14 diclofe nac sodium 50 mg tablet, delayed release 2017 018 INTERFACE [facility], [facility], [place], [address], 8 13:50:12 flutica sone propion ate 50 mcg/act uation nasal spray,s uspensi on 2017 018 INTERFACE [facility] #3259, [address] [place], [address], 8 13:58:13 lisinop ril 10 mg tablet 2017 018 INTERFACE [facility], [facility] [place], [address], 8 13:50:11 diclofe nac sodium 50 mg tablet, delayed release 2016 017 INTERFACE [facility]), [address], [address], [place], [address], 7 11:22:41 flutica sone propion ate 50 mcg/act uation nasal spray,s uspensi on 2016 017 [facility], [address], [place], [id number], 8 12:51:05 lisinop ril 10 mg tablet 2016 017 INTERFACE [facility] ([facility]), [address], [address], [place], [address], 7 11:22:40 diclofe nac sodium 50 mg tablet, delayed release 2016 017 INTERFACE [facility] ([facility]), [address], [address], [place], [address], 7 11:55:36 lisinop ril 10 mg tablet 2016 017 INTERFACE [facility] ([facility]), [address], [address], [place], [address], 7 11:55:33 Patient TargetsNo targets recorded. Patient Instructions Encounter Date Encounter Id Patient Instructions Last Modified By Organization Details Last Modified Time 05/01/2016 [id number] high blood pressure: care instructions lleelpn Not available 05/01/2016 12:06:33 learning about high blood pressure lleelpn Not available 05/01/2016 12:06:33 11/08/2016 [id number] seborrheic keratosis: care instructions ssadlowskima Not available 11/08/2016 14:47:13 learning about breast cancer screening lenglema Not available 11/08/2016 11:25:15 managing your allergies: care instructions lenglema Not available 11/08/2016 11:25:15 seasonal allergies: care instructions lenglema Not available 11/08/2016 11:25:15 10/31/2017 [id number] high blood pressure: care instructions Not available 10/31/2017 13:50:08 learning about high blood pressure Not available 10/31/2017 13:50:08 11/10/2018 [id number] back care and preventing injuries: care instructions Not available 11/10/2018 11:55:05 Reason for Referral Hand Surgeon Referral for Pa in of left hand established patient; appt scheduled Referring Physician: Family Clasu Medicine, Encounter Date: 10/31/2017 Hand Surgeon Referral for Ga nglion of wrist Please contact patient for appt- patient gone from 11/26/2018 through 12/04/2018 Referring Physician: Family Aidan Devlin, Encounter Date: 11/10/2018 Results Created Date Observation Date Name Description Value Unit Range Abnormal Flag Note LastModifiedBy Organization Detail LastModifiedTime 02/06/20 17 02/06/2017 lipid panel , serum cholesterol, total 206 mg/dL <200 high Not Available [facility] [address] [place], [address], 02/06/2017 06:23:15 02/06/20 17 02/06/2017 lipid panel , serum HDL cholesterol 88 mg/dL >50 normal Not Available [facility] [address], [address], 02/06/2017 06:23:15 02/06/20 17 02/06/2017 lipid panel , serum triglyceride s 67 mg/dL <150 normal Not Available [address], [address], 02/06/2017 06:23:15 02/06/20 17 02/06/2017 lipid panel , serum LDL-choleste rol 103 mg/dL _(radha c) high Refer ence range : <100 Francisco able range <100 mg/dL for patie nts with CHD or diabe rylee and <70 mg/dL for diabe tic patie nts with known heart disea se. LDL-C is now calcu lated using the Celeste n-[facility] jaiu bernie n, which is a valid ated novel metho d provi toney abraham r accur acy than the Fried zeeshan equat ion in the estim ation of LDL-C . Celeste beltran SS et al. MADHURI. 2013; 310(1 9): 2061- 2068 (http ://ed ucati on.[employer]. [employer]ul[employer]/f aq/FA Q164) Not Available [address], [address], 02/06/2017 06:23:15 02/06/20 17 02/06/2017 lipid panel , serum chol/HDLC ratio 2.3 (calc ) <5.0 normal Not Available [address], [address], 02/06/2017 06:23:15 02/06/2002/06/2017 lipid panel , serum non HDL cholesterol 118 mg/dL _(radha c) <130 normal For patie nts with diabe rylee plus 1 major ASCVD risk facto r, treat ing to a non-H DL-C goal of <100 mg/dL (LDL- C of <70 mg/dL ) is consi dered a thera pemiri c mikkio n. Not Available [address] [place], [address], 02/06/2017 06:23:15 02/06/20 17 02/06/2017 AST/S GOT (aspa rtate amino trans feras e), serum or plasm a AST 19 U/L 10-35 normal Not Available [address] [address] [place], [address], 02/06/2017 06:23:16 02/06/20 17 02/06/2017 BMP, serum or plasm a glucose 94 mg/dL 65-99 normal Fasti ng refer ence inter adilene Not Available [address], [address], 02/06/2017 06:23:16 02/06/20 17 02/06/2017 BMP, serum or plasm a urea nitrogen (BUN) 13 mg/dL 7-25 normal Not Available [address], [address], 02/06/2017 06:23:16 02/06/20 17 02/06/2017 BMP, serum or plasm a creatinine 0.59 mg/dL 0.60-0 .93 low For patie nts >49 years of age, the refer ence limit for Creat inine is appro ximat marilou 13% highe r for peopl e ident ified as Afric an-Am rosmery n. Not Available [address], [address], 02/06/2017 06:23:16 02/06/20 17 02/06/2017 BMP, serum or plasm a eGFR non-afr. uzbek 93 mL/mi n/1.7 3m2 > or = 60 normal Not Available [address], [address], 02/06/2017 06:23:16 02/06/20 17 02/06/2017 BMP, serum or plasm a eGFR 108 mL/mi n/1.7 3m2 > or = 60 normal Not Available [address], [address], 02/06/2017 06:23:16 02/06/20 17 02/06/2017 BMP, serum or plasm a BUN/creatini ne ratio 22 (calc ) 6-22 normal Not Available [address], [address], 02/06/2017 06:23:16 02/06/20 17 02/06/2017 BMP, serum or plasm a sodium 133 mmol/ L 135-14 6 low Not Available [address], [address], 02/06/2017 06:23:16 02/06/20 17 02/06/2017 BMP, serum or plasm a potassium 4.6 mmol/ L 3.5-5. 3 normal Not Available [address], [address], 02/06/2017 06:23:16 02/06/2002/06/2017 BMP, serum or plasm a chloride 97 mmol/ L 98-110 low Not Available [address], [address], 02/06/2017 06:23:16 02/06/20 17 02/06/2017 BMP, serum or plasm a carbon dioxide 29 mmol/ L 20-31 normal Not Available [address], [address], 02/06/2017 06:23:16 02/06/20 17 02/06/2017 BMP, serum or plasm a calcium 9.7 mg/dL 8.6-10 .4 normal Not Available [address], [address], 02/06/2017 06:23:16 02/11/20 18 02/11/2018 lipid panel , serum cholesterol, total 209 mg/dL <200 high Not Available [address], [address], 02/11/2018 12:34:54 02/11/20 18 02/11/2018 lipid panel , serum HDL cholesterol 87 mg/dL >50 normal Not Available [facility] [address], [address], 02/11/2018 12:34:54 02/11/20 18 02/11/2018 lipid panel , serum triglyceride s 105 mg/dL <150 normal Not Available [address], [address], 02/11/2018 12:34:54 02/11/20 18 02/11/2018 lipid panel [...] 2061- 2068 (http ://ed ucati on.[employer]. com/f aq/FA Q164) Not Available [address], [address], 02/11/2018 12:34:54 02/11/20 18 02/11/2018 lipid panel , serum chol/HDLC ratio 2.4 (calc ) <5.0 normal Not Available [address], [address], 02/11/2018 12:34:54 02/11/20 18 02/11/2018 lipid panel , serum non HDL cholesterol 122 mg/dL _(radha c) <130 normal For patie nts with diabe rylee plus 1 major ASCVD risk facto r, treat ing to a non-H DL-C goal of <100 mg/dL (LDL- C of <70 mg/dL ) is melanie kayeo n. Not Available [address] [address] [place], [address], 02/11/2018 12:34:54 02/11/20 18 02/11/2018 CMP, serum or plasm a glucose 90 mg/dL 65-139 normal Non-f astin g refer ence inter adilene Not Available [facility] [address], [place], [address], 02/11/2018 12:34:55 02/11/20 18 02/11/2018 CMP, serum or plasm a urea nitrogen (BUN) 17 mg/dL 7-25 normal Not Available [facility] [address] [address] [place], [address], 02/11/2018 12:34:55 02/11/2002/11/2018 CMP, serum or plasm a creatinine 0.60 mg/dL 0.60-0 .93 normal For patie nts >49 years of age, the refer ence limit for Creat inine is appro ximat marilou 13% highe r for peopl e ident ified as Afric an-Am rosmery n. Not Available [facility] [address] [address] [place], [address], 02/11/2018 12:34:55 02/11/20 18 02/11/2018 CMP, serum or plasm a eGFR non-afr. uzbek 92 mL/mi n/1.7 3m2 > or = 60 normal Not Available [facility] [address] [address] [place], [address], 02/11/2018 12:34:55 02/11/20 18 02/11/2018 CMP, serum or plasm a eGFR 106 mL/mi n/1.7 3m2 > or = 60 normal Not Available [facility] [address] [address] [place], [address], 02/11/2018 12:34:55 02/11/20 18 02/11/2018 CMP, serum or plasm a BUN/creatini ne ratio NOT APPLIC ABLE (calc ) 6-22 Not Available [address], [address], 02/11/2018 12:34:55 02/11/20 18 02/11/2018 CMP, serum or plasm a sodium 133 mmol/ L 135-14 6 low Not Available [address], [address], 02/11/2018 12:34:55 02/11/20 18 02/11/2018 CMP, serum or plasm a potassium 4.7 mmol/ L 3.5-5. 3 normal Not Available [address], [address], 02/11/2018 12:34:55 02/11/20 18 02/11/2018 CMP, serum or plasm a chloride 95 mmol/ L 98-110 low Not Available [address], [address], 02/11/2018 12:34:55 02/11/20 18 02/11/2018 CMP, serum or plasm a carbon dioxide 27 mmol/ L 20-32 normal Not Available [address], [address], 02/11/2018 12:34:55 02/11/20 18 02/11/2018 CMP, serum or plasm a calcium 9.8 mg/dL 8.6-10 .4 normal Not Available [facility] [address], [address], 02/11/2018 12:34:55 02/11/20 18 02/11/2018 CMP, serum or plasm a protein, total 7.2 g/dL 6.1-8. 1 normal Not Available [facility] [address], [address], 02/11/2018 12:34:55 02/11/20 18 02/11/2018 CMP, serum or plasm a albumin 4.6 g/dL 3.6-5. 1 normal Not Available [address], [address], 02/11/2018 12:34:55 02/11/20 18 02/11/2018 CMP, serum or plasm a globulin 2.6 g/dL_ (calc ) 1.9-3. 7 normal Not Available [address], [address], 02/11/2018 12:34:55 02/11/20 18 02/11/2018 CMP, serum or plasm a albumin/glob ulin ratio 1.8 (calc ) 1.0-2. 5 normal Not Available [address], [address], 02/11/2018 12:34:55 02/11/20 18 02/11/2018 CMP, serum or plasm a bilirubin, total 0.7 mg/dL 0.2-1. 2 normal Not Available [address], [address], 02/11/2018 12:34:55 02/11/20 18 02/11/2018 CMP, serum or plasm a alkaline phosphatase 64 U/L 33-130 normal Not Available [address], [address], 02/11/2018 12:34:55 02/11/20 18 02/11/2018 CMP, serum or plasm a AST 27 U/L 10-35 normal Not Available [address], [address], 02/11/2018 12:34:55 02/11/20 18 02/11/2018 CMP, serum or plasm a ALT 20 U/L 6-29 normal Not Available [address], [address], 02/11/2018 12:34:55 02/11/20 18 02/11/2018 CBC w/ auto diff white blood cell count 6.0 thous and/u L 3.8-10 .8 normal Not Available [address], [address], 02/11/2018 12:34:55 02/11/20 18 02/11/2018 CBC w/ auto diff red blood cell count 4.45 pollo on/uL 3.80-5 .10 normal Not Available [address], [address], 02/11/2018 12:34:55 02/11/20 18 02/11/2018 CBC w/ auto diff hemoglobin 14.3 g/dL 11.7-1 5.5 normal Not Available [address], [address], 02/11/2018 12:34:55 02/11/20 18 02/11/2018 CBC w/ auto diff hematocrit 42.2 % 35.0-4 5.0 normal Not Available [address], [address], 02/11/2018 12:34:55 02/11/20 18 02/11/2018 CBC w/ auto diff MCV 94.8 fL 80.0-1 00.0 normal Not Available [address], [address], 02/11/2018 12:34:55 02/11/20 18 02/11/2018 CBC w/ auto diff MCH 32.1 pg 27.0-3 3.0 normal Not Available [address], [address], 02/11/2018 12:34:55 02/11/20 18 02/11/2018 CBC w/ auto diff MCHC 33.9 g/dL 32.0-3 6.0 normal Not Available [address], [address], 02/11/2018 12:34:55 02/11/20 18 02/11/2018 CBC w/ auto diff RDW 11.7 % 11.0-1 5.0 normal Not Available [address], [address], 02/11/2018 12:34:55 02/11/20 18 02/11/2018 CBC w/ auto diff platelet count 301 thous and/u L 140-40 0 normal Not Available [address], [address], 02/11/2018 12:34:55 02/11/2002/11/2018 CBC w/ auto diff MPV 9.9 fL 7.5-12 .5 normal Not Available [address], [address], 02/11/2018 12:34:55 02/11/2002/11/2018 CBC w/ auto diff absolute neutrophils 3660 cells /uL 1500-7 800 normal Not Available [address], [address], 02/11/2018 12:34:55 02/11/20 18 02/11/2018 CBC w/ auto diff absolute lymphocytes 1422 cells /uL 850-39 00 normal Not Available [address], [address], 02/11/2018 12:34:55 02/11/20 18 02/11/2018 CBC w/ auto diff absolute monocytes 528 cells /uL 200-95 0 normal Not Available [address], [address], 02/11/2018 12:34:55 02/11/20 18 02/11/2018 CBC w/ auto diff absolute eosinophils 330 cells /uL 15-500 normal Not Available [address], [address], 02/11/2018 12:34:55 02/11/2002/11/2018 CBC w/ auto diff absolute basophils 60 cells /uL 0-200 normal Not Available [address], [address], 02/11/2018 12:34:55 02/11/2002/11/2018 CBC w/ auto diff neutrophils 61 % normal Not Available [address], [address], 02/11/2018 12:34:55 02/11/2002/11/2018 CBC w/ auto diff lymphocytes 23.7 % normal Not Available [address], [address], 02/11/2018 12:34:55 02/11/2002/11/2018 CBC w/ auto diff monocytes 8.8 % normal Not Available [address], [address], 02/11/2018 12:34:55 02/11/2002/11/2018 CBC w/ auto diff eosinophils 5.5 % normal Not Available [address], [address], 02/11/2018 12:34:55 02/11/2002/11/2018 CBC w/ auto diff basophils 1.0 % normal Not Available [address], [address], 02/11/2018 12:34:55 02/11/2002/11/2018 C-amadeo ctive prote in, quant itati ve, serum or plasm a C-reactive protein 0.7 mg/L <8.0 normal Not Available [address], [address], 02/11/2018 12:34:56 02/11/2002/11/2018 TSH, serum or plasm a TSH 3.66 mIU/L 0.40-4 .50 normal Not Available [address], [address], 02/11/2018 12:34:56 02/12/2002/12/2019 lipid panel , serum cholesterol, total 222 mg/dL <200 high Not Available [address], [address], 02/12/2019 03:46:45 02/12/2002/12/2019 lipid panel , serum HDL cholesterol 83 mg/dL >50 normal Not Available [facility] [address], [address], 02/12/2019 03:46:45 02/12/2002/12/2019 lipid panel , serum triglyceride s 94 mg/dL <150 normal Not Available [address], [address], 02/12/2019 03:46:45 02/12/2002/12/2019 lipid panel , serum [...] 2061- 2068 (http ://ed ucati on.Qu [employer]. com/f aq/FA Q164) Not Available [facility] [address] [address] [place], [address], 02/12/2019 03:46:45 02/12/2002/12/2019 lipid panel , serum chol/HDLC ratio 2.7 (calc ) <5.0 normal Not Available [address], [address], 02/12/2019 03:46:45 02/12/2002/12/2019 lipid panel , serum non HDL cholesterol 139 mg/dL _(radha c) <130 high For patie nts with diabe rylee plus 1 major ASCVD risk facto r, treat ing to a non-H DL-C goal of <100 mg/dL (LDL- C of <70 mg/dL ) is consi dered a thera peuti c optio n. Not Available [address], [address], 02/12/2019 03:46:45 02/12/2002/12/2019 AST/S GOT (aspa rtate amino trans feras e), serum or plasm a AST 17 U/L 10-35 normal Not Available [address], [address], 02/12/2019 03:46:45 02/12/2002/12/2019 BMP, serum or plasm a glucose 84 mg/dL 65-99 normal Fasti ng refer ence inter adilene Not Available [address], [address], 02/12/2019 03:46:46 02/12/2002/12/2019 BMP, serum or plasm a urea nitrogen (BUN) 14 mg/dL 7-25 normal Not Available [address], [address], 02/12/2019 03:46:46 02/12/2002/12/2019 BMP, serum or plasm a creatinine 0.59 mg/dL 0.60-0 .93 low For patie nts >49 years of age, the refer ence limit for Creat inine is appro ximat marilou 13% highe r for peopl e ident ified as Afric an-Am rosmery n. Not Available [address] [address] [place], [address], 02/12/2019 03:46:46 02/12/2002/12/2019 BMP, serum or plasm a eGFR non-afr. uzbek 92 mL/mi n/1.7 3m2 > or = 60 normal Not Available [address] [address] [place], [address], 02/12/2019 03:46:46 02/12/2002/12/2019 BMP, serum or plasm a eGFR 106 mL/mi n/1.7 3m2 > or = 60 normal Not Available [address], [address], 02/12/2019 03:46:46 02/12/2002/12/2019 BMP, serum or plasm a BUN/creatini ne ratio 24 (calc ) 6-22 high Not Available [address], [address], 02/12/2019 03:46:46 02/12/2002/12/2019 BMP, serum or plasm a sodium 136 mmol/ L 135-14 6 normal Not Available [address] [address] [place], [address], 02/12/2019 03:46:46 02/12/2002/12/2019 BMP, serum or plasm a potassium 4.6 mmol/ L 3.5-5. 3 normal Not Available [facility] [address] [address] [place], [address], 02/12/2019 03:46:46 02/12/2002/12/2019 BMP, serum or plasm a chloride 99 mmol/ L 98-110 normal Not Available [address] [address] [place], [address], 02/12/2019 03:46:46 02/12/2002/12/2019 BMP, serum or plasm a carbon dioxide 29 mmol/ L 20-32 normal Not Available [facility] [address] [place], [address], 02/12/2019 03:46:46 02/12/20 19 02/12/2019 BMP, serum or plasm a calcium 9.4 mg/dL 8.6-10 .4 normal Not Available [facility] [address] [address], [place], [address], 02/12/2019 03:46:46 05/28/19 17 05/28/2016 XR, lumba r spine No observ ation record ed. [email or web address] Not Available 2016 22:17:17 02/01/20 17 01/31/2017 MAMMO , scree katerina, digit al, bilat eral No observ ation record ed. [facility] (Imaging) [address] [facility] [address], [place], [address], 02/04/2017 17:27:11 02/06/20 17 01/31/2017 MAMMO , scree katerina, digit al, bilat eral, w/ CAD No observ ation record ed. [facility] Not Available 2016 21:20:18 02/11/20 18 02/10/2018 MAMMO , scree katerina, bilat eral No observ ation record ed. [address] (Imaging) [address] [facility] [address], [place], [address], 02/10/2018 19:00:20 11/29/19 19 11/21/2018 DEXA No observ ation record ed. [email or web address] n [facility] [address], [place], [address], 11/28/2018 16:57:21 12/20/19 19 12/19/2018 XR, elbow , 3 or more view No observ ation record ed. [email or web address], [place], [address], 12/22/2018 18:22:19 01/17/20 19 01/16/2019 XR, elbow No observ ation record ed. [email or web address] [address] [place], [address], 01/16/2019 18:15:40 02/17/20 19 02/16/2019 MAMMO , scree katerina, bilat eral No observ ation record ed. [facility] ([facility]) [address], [place], [address], 02/16/2019 16:08:46 02/28/20 19 02/27/2019 XR, elbow , 3 or more view No observ ation record ed. [email or web address] [address] [place], [address], 02/27/2019 16:21:58 Result Notes None recorded. Problems Name Problem SNOMED Code Status Onset Date Resolution Date Notes Provider Name and Address Organization Details Recorded Time Malaise and fatigue 594626282 Active 2012 Location : None;Sev erity: Moderate ;Progres s: Stable;A dded By: Dinora Toth;Add to Current Problems : NO Not Available [facility] 7 10:01:45 Disorder of bone and articula r cartilag e 849455304 Completed 201205/03/2012 Location : None;Sev erity: Moderate ;Progres s: Stable;A dded By: Tara Hudson;Add to Current Problems : NO Not Available [facility] 7 10:01:45 Chronic pain 04197581 Active 2012 Location : None;Sev erity: Moderate ;Progres s: Stable;A dded By: Marck Espinoza;Marcus d to Current Problems : YES Not Available [facility] 7 10:01:45 Lumbosac ral spondylo sis without myelopat hy 73266609 Active 2012 Location : None;Sev erity: Moderate ;Progres s: Stable;A dded By: Tara Hudson;Add to Current Problems : YES Not Available [facility] 7 10:01:45 Migraine without aura 76058023 Active 2012 Location : None;Sev erity: Moderate ;Progres s: Stable;A dded By: Tabatha Rivera i;Deangelo dd to Current Problems : YES Not Available [facility] 7 10:01:46 Screenin g for malignan t neoplasm of colon Active 2012 Location : None;Sev erity: Moderate ;Progres s: Stable;A dded By: Tara Hudson;Add to Current Problems : NO Not Available [facility] 7 10:01:45 Senile hyperker atosis 673172659 Completed 201308/30/2013 Location : None;Sev erity: Moderate ;Progres s: Stable;A dded By: Carrie Hammonds;Add to Current Problems : NO Not Available [facility] 7 10:01:45 Hearing loss 48181024 Active 2013 Location : None;Sev erity: Moderate ;Progres s: Stable;A dded By: Tara Hudson;Add to Current Problems : NO Not Available [facility] 7 10:01:45 Dyspnea 028361634 Completed 201308/30/2013 Location : None;Sev erity: Moderate ;Progres s: Stable;A dded By: Monica Hussein;Ad d to Current Problems : NO Not Available [facility] 7 10:01:46 Ganglion of joint 53575251 Completed 201312/26/2013 Location : None;Sev erity: Moderate ;Progres s: Stable;A dded By: Tabatha Rivera i;A dd to Current Problems : NO Not Available [facility] 7 10:01:45 Enthesop athy of wrist AND/OR carpus [id number] Completed 201312/26/2013 Location : None;Sev erity: Moderate ;Progres s: Stable;A dded By: Tabatha Rivera i;A dd to Current Problems : NO Not Available [facility] [facility] 7 10:01:45 Female genital organ symptoms 207710610 Completed 201408/24/2014 Location : None;Sev erity: Moderate ;Progres s: Stable;A dded By: Tara Hudson;Add to Current Problems : YES Not Available [facility] 7 10:01:45 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 Active 2014 Location : None;Sev erity: Moderate ;Progres s: Stable;A dded By: Tara Hudson;Add to Current Problems : NO Not Available [facility] 7 10:01:45 Low back pain 634307585 Active 2014 Location : None;Sev erity: Moderate ;Progres s: Stable;A dded By: Tabatha Rivera i;Deangelo dd to Current Problems : YES Not Available [facility] 7 10:01:46 Benign essentia l hyperten kwadwo 7924495 Active 2014 Location : None;Sev erity: Moderate ;Progres s: Stable;A dded By: Mary Anne Cuadra;Add to Current Problems : YES Not Available [facility] 7 10:01:46 Pain in limb 21025611 Active 2014 Location : None;Sev erity: Moderate ;Progres s: Stable;A dded By: Christina Hdez; Add to Current Problems : YES Not Available [facility] 7 10:01:45 Screenin g for osteopor osis Active 2015 Location : None;Sev erity: Moderate ;Progres s: Stable;A dded By: Sosa Rahman;Add to Current Problems : YES Not Available [facility] 7 10:01:46 Spontane ous ecchymos is [id number] Active 2015 Location : None;Sev erity: Moderate ;Progres s: Stable;A dded By: Mary Anne Cuadra;Add to Current Problems : YES Not Available [facility] 7 10:01:46 Disorder of bone and articula r cartilag e 917370643 Active 2015 Location : None;Sev erity: Moderate ;Progres s: Stable;A dded By: Sosa Rahman;Add to Current Problems : NO Not Available [facility] 7 10:01:46 Problem Notes None recorded. Procedures Surgical History Date Name Laterality Status Provider Name and Address Organization Details Recorded Time 11/11/19 19 AIMS completed Alexa Etienne [facility] 11/10/2018 11:01:06 11/11/19 19 SLUMS EXAM completed Alexa Etienne MA [facility] 11/10/2018 11:01:06 11/09/19 17 Generic Procedure completed Tara Hudson [facility] 11/08/2016 14:22:38 [facility] 14:36:09 Eye Surgery completed [facility] 05/01/2016 14:36:27 Breast Surgery [facility] 17:44:53 Dilation and Curettage completed [facility] 05/01/2016 14:36:38 Imaging Results None recorded. Procedure Notes None recorded. Medical Equipment None Reported. Allergies Allergen ID Allergen Name Allergen Category Reaction Reaction Severity Criticality Documentation Date Start Date Code Code System Note Provider Name and Address Organization Details Recorded Time 24125 erythromy jet medicatio n nausea moderate Not available 04/25/20162012 4053 RxNorm React ion: nause a;Sev erity : Moder ate; Comme nt: Aller gy Type: Adver se React ion; Not Available [facility] 7 03:46:36 94791 Biaxin medicatio n nausea moderate Not available 04/25/2016201272 9 RxNorm React ion: nause a;Sev erity : Moder ate; Comme nt: Aller gy Type: Adver se React ion; Not Available [facility] 7 03:46:36 27214 bisoprolo l / hydrochlo rothiazid e medicatio n Not available Not available Not available 04/25/20162012 87217 7 RxNorm Sever ity: Moder ate; Comme nt: DYSPH AGIA; Aller gy Type: Adver se React ion; Not Available [facility] 7 03:46:36 35433 Medrol medicatio n Not available Not available Not available 04/25/2016201270 2 RxNorm Sever ity: Moder ate; Comme nt: Aller gy Type: Adver se React ion; Not Available [facility] 7 03:46:36 33120 codeine phosphate medicatio n Not available Not available Not available 04/25/20162012 2672 RxNorm Sever ity: Moder ate; Comme nt: Aller gy Type: Adver se React ion; Not Available [facility] 7 03:46:36 56603 gabapenti n medicatio n Not available Not available Not available 05/01/2016 94073 RxNorm hair loss Tabatha [facility] [place] - [facility] 7 11:17:01 Medications Name Sig [...] 6 hr prn 12/11 completed RxNorm : 526425 ;Allow Substi tution : True Not Available Not Available Not Available prednisone 20 mg tablet 3 po q day for 3 days then 2 po q day for 3 days then 1 po q day for 4 days 03/21 completed RxNorm : 975849 ;Allow Substi tution : True Not Available Not Available Not Available Voltaren 75 mg tablet,del ayed release Take 1 tablet(s) by mouth bid 12/11 completed RxNorm : 937104 ;Allow Substi tution : True Not Available Not Available Not Available oxycodone- acetaminop hen 5 mg-325 mg tablet 11/10 completed Not Available Not Available Not Available Denavir 1 % topical cream Apply sufficien t amount to affected area q2h for 4 days while awake 04/27 completed RxNorm : 476681 ;Allow Substi tution : True Not Available [...] prn for migraine 11/14 completed RxNorm : 924377 ;Allow Substi tution : True Not Available Not Available Not Available fluticason e propionate 50 mcg/actuat ion nasal spray,susp ension USE 2 SPRAYS INTO EACH NOSTRIL EVERY DAY 2019 active Not Available Not Available Not Avai lable Tylenol Extra Strength 500 mg tablet Take 2 tabs (1000mg) daily 10/03 completed RxNorm : 852595 ;Allow Substi tution : True Not Available Not Available Not Available Restasis 0.05 % eye drops in a dropperett e Instill 1 drop(s) to each eye bid 10/31 completed RxNorm : 953040 ;Allow Substi tution : True Not Available [...] Details Last Updated DateTime 7 165.1 cm 91290.7 3 g 20.2 kg/m2 97.7 [degF] 98 % 98 % 70 /min 112/74 mm[Hg] Tabatha Gallegos ma [place] - [facility] 7 11:19:38 Date Recorded Body height Body mass index (BMI) Body weight Body temperature Oxygen saturation Oxygen saturation in Arterial blood by Pulse oximetry Heart rate Systolic And Diastolic Provider Name and Address Organization Details Last Updated DateTime 8 165.1 cm 19.5 kg/m2 50088.6 6 g 97.1 [degF] 98 % 98 % 52 /min 110/80 mm[Hg] Tabatha Gallegos ma [facility] 8 12:50:07 Date Recorded Body height Body mass index (BMI) Body weight Body temperature Oxygen saturation Oxygen saturation in Arterial blood by Pulse oximetry Heart rate Systolic And Diastolic Provider Name and Address Organization Details Last Updated DateTime 7 165.1 cm 19.7 kg/m2 68110.6 g 97.2 [degF] 98 % 98 % 70 /min 112/80 mm[Hg] Tabatha Gallegos ma [facility] 7 10:10:07 Date Recorded Body height Body mass index (BMI) Body weight Body temperature Oxygen saturation Oxygen saturation in Arterial blood by Pulse oximetry Heart rate Systolic And Diastolic Provider Name and Address Organization Details Last Updated DateTime 9 165.1 cm 19.3 kg/m2 57072.7 1 g 97 [degF] 99 % 99 % 66 /min 117/82 mm[Hg] Alexa Etienne MA [facility] 9 11:11:23 Social History Question Answer Notes LastModified by Organizat ion Details LastModified Time Tobacco Smoking Status Never Smoker Tabatha Rainey [facility] 05/01/2016 09:47:08 What Was The [...] conjugate PCV 13 5 completed Not Available [facility] 04/25/2016 05:39:04 Influenza, split virus, trivalent, preservative 5 completed Not Available [facility] 04/25/2016 05:39:04 Tdap 0 completed Not Available [facility] 04/25/2016 05:39:04 zoster live 8 completed Not Available [facility] 04/25/2016 05:39:04 Influenza, split virus, trivalent, preservative 3 completed Not Available [facility] 04/25/2016 05:39:04 pneumococcal polysaccharide PPV23 0 completed Not Available [facility] 04/25/2016 05:39:05 Influenza, split virus, trivalent, preservative 2 completed Not Available [facility] 04/25/2016 05:39:05 Influenza, high-dose, trivalent, PF 7 completed Mica Hilton null, [place] [facility] 02/14/2017 12:54:13 pneumococcal polysaccharide PPV23 7 completed Mica [place] [facility] 02/14/2017 12:55:08 Influenza, high-dose, trivalent, PF 8 completed Suri Pearce MD Attn: Accounting[address] [place], [address], [place] [facility] 01/31/2018 18:02:58 Past Encounters Encounter ID Performer Location Encounter Start Date Encounter Closed Date Diagnosis/Indication Diagnosis SNOMED-CT Code Diagnosis ICD10 Code Diagnosis IMO Codes Diagnosis Note [id number] Tara Hudson MD On License Of [facility] [address] [place] [address] 05/01/2016 10:56:51 05/02/2016 16:39:27 Benign essential hypertension 4559036 I10 Osteoarthr itis of wrist 673222400 M19.031 M19.616 [id number] Tara Hudson MD [place] [address] [place] [address] 11/08/2016 09:54:23 11/08/2016 14:33:05 Osteoarthritis of wrist 916277530 M19.031 M19.032 Benign ess ential hypertension 0670063 I10 Allergic r hinitis caused by pollen 53372532 J30.1 Screening for malignant neoplasm of breast 018492225 Z12.39 Senile hyperkeratosis 39 5458664 L82.1 [id number] Tara Hudson MD [place] [address] [place] [address] 10/31/2017 12:18:48 11/01/2017 12:56:39 Benign essential hypertension 0887803 I10 Fatigue 86385864 R53.83 Osteoarthr itis of wrist 976741674 M19.031 M19.032 Allergic r hinitis caused by pollen 81635706 J30.1 Vertigo 455041577 R42 Pain of left hand 349976 7290 25349 M79.642 and ganglions of right hand [id number] Tara Hudson MD [place] [address] [place] [address] 11/10/2018 10:37:45 11/10/2018 12:16:24 Adult health examination 416525768 Z00.00 Benign ess ential hypertension 1630556 I10 Osteoarthr itis of wrist 815452251 M19.031 M19.032 Low back pain 029636180 M54.5 Ganglion of wrist 874133 009 M67.431 Osteopenia 869599801 M85 .9 Health Concerns Section Related Observation LastModified by Organization Detai ls LastModified Time None Recorded Concern Status LastModified by Organization Details LastModified Time None Recorded Advance Directives Directive None Recorded Payers Insurance Date Sequence Insurance Name Policy Number Policy Jacques Covered Member ID Jacques Member ID Guarantor Name 11/10/2018 1 [place] Katina Vinson [id number] Katina Vinson 11/10/2018 1 [place] Katina Vinson [id number] Katina Vinson 11/10/2018 2 [employer]ED [employer] - [employer] (MEDICARE SUPPLEMENT) PLAN F Katina Vinson [id number] Katina Vinson 11/10/2018 3 [place] - RHC - FQHC Katina Vinson [id number] Katina Vinson Notes Date Note Type Note [...] as noted in the HPI Tara young [place] 05/01/2016 11:55:36 11/09/19 17 text/htm [...] patient reportsno fever.ROS [facility]/08/2016 14:28:43 11/01/19 18 text/htm l Hypertension [...] fever.ROS as noted [facility] the HPI [facility] 10/31/2017 14:02:59 11/11/19 19 text/htm l Medicare [...] assistance. For vision, (wears glasses). DEVIN Sotelo [facility] 11/10/2018 12:07:18 OBGyn Episode No OBEpisode recorded.
--- OUTSIDE RECORDS SUMMARY | 2025-02-12 00:26 | XMS_ITS | Encounter Summary ---
Author Organization [facility] Healthcare Address [address] [place] [address] Care Team Providers Care Lead Software Test Engineer Name Role Phone Rachel Friend NP Primary Care Provider [phone] Todd Cedeno MD Unavailable Reason for Visit * Reason Onset Date Comments Surgical Clearance 01/29/2025 Encounter Details Date Type Department Care Team (Late st Contact Info) Description 01/29/2025 Telephone [facility] Medical Group Cardiology [address] [place] [address] Todd Cedeno MD [address] [facility] [address] [facility] [place] [address] Surgical Clearance Social History Tobacco Use Types Packs/Day Years Used Date Smoking Tobacco: Never Smokeless Tobacco: Never Alcohol Use Standard Drinks/Week Comments Yes 0 (1 standard drink = 0.6 oz pur e alcohol) [facility] Utilities Answer Date Recorded In the [...] often do you attend chur ch or church services? Never 07/15/2024 Do you belong to any clubs o r organizations such as roman catholic groups, unions, fraternal or athletic groups, or [...] any time in the past 12 [facility], were you homeless or living in a halfway (including now)? No 07/15/2024 Personal Safety Answer Date Recorded Have you ever been in or are you currently in a harmful physical or emotional relationship or is someone making you feel afraid or unsafe? 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 * Telephone Encounter - Rosalind Brothers - 02/01/2025 9:29 AM CDT Anna from [facility] requesting a call back to get an update on the clearance regarding the ptscolonoscopy. Please advise. Thank you. Contact [phone] * Telephone Encounter - Mame Roque RN - 01/29/2025 3:20 PM CDT ANIA on with Anna in endoscopy, advised that we have received cardiac clearance request and will have [facility] review. * Telephone Encounter - Jayla Koenig - 01/29/2025 3:06 PM CDT Anna from Endo dept called in and states the patient is scheduled for a colonoscopy on 02/09. Patient told her that [facility] wants her to hold off on procedure. Requesting a call back. Please advise. Thank you. Contact : [phone] documented in this encounter Plan of Treatment Not on file documented as of this encounter Visit Diagnoses Not on filedocumented in this encounter Care Teams Lead Software Test Engineer Relationship Specialty Start Date End Date Rachel Friend NP [address] [place] [address] PCP - General Family Medicine 11/26/23 Todd Cedeno MD [address] [place] [address] Consulting Physician Cardiology 07/15/24 documented as of this encounter
[2025-02-12 08:28] VITALS: BP 141/78; PULSE 66; RESP 18; TEMP 36.3; O2SAT 100
[2025-02-12] MEDS: LACTATED RINGERS 1,000 ML 150 ML IV CONT (08:39)
--- NOTE | 2025-02-12 08:40 | PM.HPGS ---
History of Present Illness History of Present Illness Consent: Risks, benefits, and alternatives have been discussed and questions answered. Patient agrees to proceed with procedure. Chief complaint: personal hx colon polyps Narrative: Katina Vinson is a 79 year old female with colon polyp in 2022 Review of Systems Review of Systems: All systems reviewed & are unremarkable except as noted in HPI and below PMFSH Past Medical History Medical History (Updated 02/12/25 @ 08:41 by Payam Day MD) Adenomatous colon polyp Implantable loop recorder present Osteopenia of spine T12 compression fracture (~11/2021) Tinnitus of left ear Hyperlipidemia Anxiety GERD without esophagitis Essential (primary) hypertension Headache, common migraine, intractable Arthralgia Low back pain with left-sided sciatica Osteopenia Hand and wrist extensor tendon rupture Surgical History Surgical History History of breast implant removal (~2011) History of hand surgery EDC centralization LT-2016, RT-2013 History of laminectomy (~02/2016) L4-5-S1 S/P laminectomy with spinal fusion (~11/2021) Family History Family History Father , Suicide No problems noted. Grandparent , Stroke Hypertension Grandparent , Stroke No problems noted. Social History Social History Social History: 2 cups of caffeine per day (coffee, tea) Smoking status: Never smoker Second hand tobacco smoke exposure: No Additional smoking assessment comments: states her parents smoked when she was a child Alcohol intake: current Drinks per week: 1 Alcohol use details: wine Substance use: never Substance use type: does not use Lack of Transportation: No Lack of Food: Never True Current Housing: I Have Housing Concerned About Future Housing: No Difficulty Paying Gas/Electric Bills: No Difficulty Paying for Meds: No Currently Unemployed: No Education: Bachelor's Degree Difficulty w/ Childcare or Family Care: No Living arrangements: with family Additional living arrangements comments: . Has 3 children. 4 grandchildren. Children live out of town. Occupation/Education: retired Gender identity (if verbalized by the patient): Female Spiritual care concerns: No Agree to blood products: Yes Meds Home Medications and Allergies Home Medications ?Medication ?Instructions ?Recorded ?Confirmed ?Type calcium 500 mg 1 tablet PO DAILY 06/15/19 02/12/25 History (carb,gluconate)-magnesium 250 mg (gluc,oxide) tablet multivitamin 1 tablet PO DAILY 06/15/19 02/12/25 History nitroglycerin 0.4 mg sublingual 0.4 mg sublingual Q5M PRN CP 07/10/24 02/10/25 History tablet aspirin 81 mg tablet,delayed 81 mg PO DAILY 07/13/24 02/12/25 History release (Adult Low Dose Aspirin) clopidogrel 75 mg tablet 75 mg PO QAM #90 tabs 07/13/24 02/12/25 Rx diltiazem HCl 120 mg 120 mg PO Q24H 08/17/24 02/12/25 History capsule,extended release 24 hr, controlled (DILT-XR) fexofenadine 180 mg tablet 180 mg PO DAILY 09/09/24 02/12/25 History (Linda Allergy) meloxicam 15 mg tablet 15 mg PO DAILY #90 tabs 10/08/24 02/12/25 Rx omega3 700 mg-dha 200 mg-epa 450 650 cap PO DAILY 11/24/24 02/12/25 History mg-dpa 50 [id number] 50 mg capsule ([place]-3 2100 with COQ10) rosuvastatin 20 mg tablet 20 mg PO QHS 11/24/24 02/12/25 History lisinopril 40 mg tablet 40 mg PO DAILY #90 tabs 01/06/25 02/12/25 Rx acetaminophen 500 mg tablet 500 mg PO Q6H PRN fever or pain 02/03/25 02/10/25 History alprazolam 0.25 mg tablet 0.125 mg PO BID PRN anxiety 02/03/25 02/10/25 History glucosamine-chondroitin 250 mg-200 2 tablet PO DAILY 02/03/25 02/12/25 History mg tablet hyaluronic acid complex 1 tablet PO DAILY 02/03/25 02/12/25 History lutein 40 mg capsule 40 mg PO DAILY 02/03/25 02/12/25 History milk thistle 111 mg PO DAILY 02/03/25 02/12/25 History sodium,potassium,mag sulfates 17.5 See Rx Instructions PO .COMPLEX 02/03/25 02/10/25 Rx gram-3.13 gram-1.6 gram oral soln #354 mL (Suprep Bowel Prep Kit) famotidine 20 mg tablet mg PO 02/10/25 02/10/25 History methocarbamol 750 mg tablet 750 mg PO TID PRN muscle spasm #90 02/10/25 02/12/25 Rx tabs Allergies Allergy/AdvReac Type Severity Reaction Status Date / Time alendronate sodium (From AdvReac Mild rash/itching Verified 02/12/25 08:23 Fosamax) of lower legs Beta-Blockers AdvReac Unknown petechia Verified 02/12/25 08:23 (Beta-Adrenergic Bloc and vascular reaction to legs clarithromycin (From Biaxin) AdvReac Unknown extreme Verified 02/12/25 08:23 upset stomach erythromycin base AdvReac Unknown upset Verified 02/12/25 08:23 stomach tramadol AdvReac Unknown Nausea Verified 02/12/25 08:23 Vital Signs Vital Signs - 24 hr 02/12/25 08:28 Temperature 97.3 F L Pulse Rate 66 Respiratory Rate 18 Blood Pressure 141/78 H Pulse Oximetry 100 Oxygen Delivery Room Air Exam Const: General: comfortable and no acute distress HENMT: Face/Nose/Sinus: Normal nares present Eyes: General: appearance normal, both eyes and all related structures Neck: Neck: no JVD Resp: Auscultation: clear to auscultation bilaterally Cardio: Rate: regular rate Rhythm: regular rhythm GI: Inspection: non-distended GI Palp: Yes Soft to palpation Skin: General skin exam: normal color Extrem: General: normal to inspection Psych: Mental Status: mental status grossly normal Assessment and Plan Assessment and plan (1) Adenomatous colon polyp: Code(s): D12.6 - Benign neoplasm of colon, unspecified Status: Acute Assessment and Plan: colonoscopy
--- NOTE | 2025-02-12 08:46 | WPDANESEPPF ---
Anes - Initial Pre Proc Eval Procedure: Operation Date: 02/09/25 09:00 Proposed Procedures p Screening Colonoscopy - Tamir Marin MD Operation Date: 02/12/25 09:30 Proposed Procedures p Screening Colonoscopy - Payam Day MD Date/Time: 02/12/25 08:46 Surgeon: Payam Day MD Pre Op Diagnosis: personal hx colon polyps Patient Data Age: 79 Gender: F Height: 1.6 m Weight: 52.3 kg Last Vital Signs Temp 97.3 F L 02/12/25 08:28 Pulse 66 02/12/25 08:28 Resp 18 02/12/25 08:28 BP 141/78 H 02/12/25 08:28 Pulse Ox 100 02/12/25 08:28 O2 Del Method Room Air 02/12/25 08:28 Allergies Allergy/AdvReac Type Severity Reaction Status Date / Time alendronate sodium (From AdvReac Mild rash/itching Verified 02/12/25 08:23 Fosamax) of lower legs Beta-Blockers AdvReac Unknown petechia Verified 02/12/25 08:23 (Beta-Adrenergic Bloc and vascular reaction to legs clarithromycin (From Biaxin) AdvReac Unknown extreme Verified 02/12/25 08:23 upset stomach erythromycin base AdvReac Unknown upset Verified 02/12/25 08:23 stomach tramadol AdvReac Unknown Nausea Verified 02/12/25 08:23 Home Medications ?Medication ?Instructions ?Recorded ?Confirmed ?Type calcium 500 mg 1 tablet PO DAILY 06/15/19 02/12/25 History (carb,gluconate)-magnesium 250 mg (gluc,oxide) tablet multivitamin 1 tablet PO DAILY 06/15/19 02/12/25 History nitroglycerin 0.4 mg sublingual 0.4 mg sublingual Q5M PRN CP 07/10/24 02/10/25 History tablet aspirin 81 mg tablet,delayed 81 mg PO DAILY 07/13/24 02/12/25 History release (Adult Low Dose Aspirin) clopidogrel 75 mg tablet 75 mg PO QAM #90 tabs 07/13/24 02/12/25 Rx diltiazem HCl 120 mg 120 mg PO Q24H 08/17/24 02/12/25 History capsule,extended release 24 hr, controlled (DILT-XR) fexofenadine 180 mg tablet 180 mg PO DAILY 09/09/24 02/12/25 History (Linda Allergy) meloxicam 15 mg tablet 15 mg PO DAILY #90 tabs 10/08/24 02/12/25 Rx omega3 700 mg-dha 200 mg-epa 450 650 cap PO DAILY 11/24/24 02/12/25 History mg-dpa 50 [id number] 50 mg capsule (Copen-3 2100 with COQ10) rosuvastatin 20 mg tablet 20 mg PO QHS 11/24/24 02/12/25 History lisinopril 40 mg tablet 40 mg PO DAILY #90 tabs 01/06/25 02/12/25 Rx acetaminophen 500 mg tablet 500 mg PO Q6H PRN fever or pain 02/03/25 02/10/25 History alprazolam 0.25 mg tablet 0.125 mg PO BID PRN anxiety 02/03/25 02/10/25 History glucosamine-chondroitin 250 mg-200 2 tablet PO DAILY 02/03/25 02/12/25 History mg tablet hyaluronic acid complex 1 tablet PO DAILY 02/03/25 02/12/25 History lutein 40 mg capsule 40 mg PO DAILY 02/03/25 02/12/25 History milk thistle 111 mg PO DAILY 02/03/25 02/12/25 History sodium,potassium,mag sulfates 17.5 See Rx Instructions PO .COMPLEX 02/03/25 02/10/25 Rx gram-3.13 gram-1.6 gram oral soln #354 mL (Suprep Bowel Prep Kit) famotidine 20 mg tablet mg PO 02/10/25 02/10/25 History methocarbamol 750 mg tablet 750 mg PO TID PRN muscle spasm #90 02/10/25 02/12/25 Rx tabs ECG: SR rate 98 10/2024 Other studies: Echo 07/15/24: EF 60-65% grade 1 diastolic dysfunction Patient hx anesthesia problems: none Family hx anesthesia problems: none Results Review: All pre-operative results and documents have been reviewed as part of the pre-operative evaluation. [facility] Past Medical History Medical History Paroxysmal A-fib Adenomatous colon polyp Implantable loop recorder present Osteopenia of spine T12 compression fracture (~11/2021) Tinnitus of left ear Hyperlipidemia Anxiety GERD without esophagitis Essential (primary) hypertension Headache, common migraine, intractable Arthralgia Low back pain with left-sided sciatica Osteopenia Hand and wrist extensor tendon rupture Surgical History Surgical History History of coronary artery stent placement STENTS x 2 07/2024 History of breast implant removal (~2011) History of hand surgery EDC centralization LT-2016, RT-2013 History of laminectomy (~02/2016) L4-5-S1 S/P laminectomy with spinal fusion (~11/2021) Family History Family History Father , Suicide No problems noted. Grandparent , Stroke Hypertension Grandparent , Stroke No problems noted. Social History Social History Social History: 2 cups of caffeine per day (coffee, tea) Smoking status: Never smoker Second hand tobacco smoke exposure: No Additional smoking assessment comments: states her parents smoked when she was a child Alcohol intake: current Drinks per week: 1 Alcohol use details: wine Substance use: never Substance use type: does not use Lack of Transportation: No Lack of Food: Never True Current Housing: I Have Housing Concerned About Future Housing: No Difficulty Paying Gas/Electric Bills: No Difficulty Paying for Meds: No Currently Unemployed: No Education: Bachelor's Degree Difficulty w/ Childcare or Family Care: No Living arrangements: with family Additional living arrangements comments: . Has 3 children. 4 grandchildren. Children live out of town. Occupation/Education: retired Gender identity (if verbalized by the patient): Female Spiritual care concerns: No Agree to blood products: Yes Anes - Eval Final PreProcedure Day of Procedure 02/12/25 08:46 Patient weight: normal Heart: regular rate and rhythm Lungs: clear to auscultation Airway: Mallampati scale class II Neurological: alert and oriented Last oral intake: >/= 8 hours ASA classification: III Emergent: no Anesthetic plan: proceed Anesthesia type and monitoring: general GIVS and standard monitoring Results Review: All pre-operative results and documents have been reviewed as part of the pre-operative evaluation. Informed Consent: The patient's anesthetic plan and its attendant risks and benefits were discussed with the patient/family/POA. Questions were solicited and answers provided to the satisfaction of the patient/family/POA.
[2025-02-12 09:25] VITALS: BP 94/52; PULSE 72; RESP 17; O2SAT 98
[2025-02-12 09:35] VITALS: BP 90/51; PULSE 67; RESP 20; O2SAT 100
[2025-02-12 09:45] VITALS: BP 108/60; PULSE 63; RESP 18; O2SAT 100
== END 2025-02-12 10:05 | disposition home or self-care (01) ==
PROVIDERS: PCP Nurse Practitioner Family; Referring Provider Internal Medicine Gastroenterology; Visit Provider Internal Medicine Gastroenterology
PROC: 0DJD8ZZ Inspection of Lower Intestinal Tract, Via Natural or Artificial Opening Endoscopic (ICD-10-PCS; CPT 45378; principal; 2025-02-12 09:30)
DX: Z12.11 Encounter for screening for malignant neoplasm of colon (principal); K64.8 Other hemorrhoids; K64.4 Residual hemorrhoidal skin tags; K57.30 Diverticulosis of large intestine without perforation or abscess without bleeding; E78.5 Hyperlipidemia, unspecified; I10 Essential (primary) hypertension; F41.9 Anxiety disorder, unspecified; K21.9 Gastro-esophageal reflux disease without esophagitis; I48.0 Paroxysmal atrial fibrillation; M85.88 Other specified disorders of bone density and structure, other site; Z79.82 Long term (current) use of aspirin; Z79.02 Long term (current) use of antithrombotics/antiplatelets; Z98.890 Other specified postprocedural states; Z98.1 Arthrodesis status; Z95.5 Presence of coronary angioplasty implant and graft; Z95.818 Presence of other cardiac implants and grafts; Z86.0100 Personal history of colon polyps, unspecified
CPT/HCPCS: G0105; J2003; J2704; J7120

== ENCOUNTER 2025-02-24 10:39 | Outpatient (CLI) | payer MEDICARE, SELFPAY ==
--- OUTSIDE RECORDS SUMMARY | 2015-09-07 07:00 | XMS_ITS | Continuity of Care Document ---
Author Organization [facility] Address [address] [place] [address] Phone Care Team Providers Care Regional Engineer Name Role Phone Nabor Ceja MD Unavailable Unavailable Allergies, Adverse Reactions, Alerts Substance Reaction Status Criticality erythromycin base Active No Informa tion codeine Active No Information clarithromycin Active No Informatio n Medications Medication Instructions Dosage Effective Dates (start - stop) Status Comments LISINOPRIL (unknown strength) Not Available - Active DICLOFENAC SODIUM (unknown strength) Not Available - Active GABAPENTIN (unknown strength) Not Available - Active RESTASIS (unknown strength) Not Available - Active ROBAXIN (unknown strength) Not Available - Active Procedures Procedure Date RADEX SPI LUMBOSAC 2/3 VIEWS OFFICE/OUTPATIENT VISIT NEW Advance Directives Directive Yes / No Effective Date File Name No Information Encounters Encounter Description Practice Location Reason(s) For Visit Diagnoses Date Provider Providers Copied on Encounter OFFICE/OUTPA TIENT VISIT [facility], [address] [facility] [address], [place], [address], tel:[phone] [facility] My back and right ankle hurt alot (chief complaint) Body mass index (BMI) 19 or less, adultLow back painPeroneal tendinitis of right lower extremitySpondylo listhesis at L4-L5 level 6 Brenna Tomlin. [address] [place], [place], [id number] . tel:[phone] Referring Provider: Tara Hudson, [address] [place], [address] . tel:[phone] Family History Family Member Type Diagnosis Age At Onset Father Problem (finding) hypertension Father Problem (finding) depression Payers Payer name Insurance type Covered green party ID Ronnie andujar(s) Medicare E2 OT [id number] Combined Insurance [place] [id number] Social History Type Description Quantity Date Captured Comments Alcohol Use Details 3 drinks weekly Caffeine Use Details Unknown Tobacco Use Status Never smoked tobacco 2015 Smoking Status Never smoker Non-Smoking Tobacco Use Details : No Details Available : No Details Available Sex Female Vital Signs Date / Time: Height Weight BMI Pulse Rate Blood Pressure Temperature Respiratory Rate Body Surface Area Head Circumference Head Circ. Percentile Wt./Shade. Percentile BMI percentile Pulse Ox Inhaled Ox 1:32 PM 66.00 in 53.070 kg (117.00 lbs) 18.8 8 kg/m eter (2) 118/74 mm[Hg] Chief Complaint And Reason For Visit From encounter dated '09/07/2015 13:00'. My back and right ankle hurt alot (chief complaint) Reason For Referral Reason For Referral No Information Plan Of Treatment Date Type Action Status Referral Ordered: referred to Dr. Herbert (related to Low back pain) ordered Referral Ordered: RADEX SPI LUMBOSAC 2/3 VIEWS ordered History Of Present Illness Encounter Date Complaint History Of Prese nt Illness My back and right ankle hurt devin t Functional Status Date Functional Assessmen t No Information Instructions Date Instruction Additional Infor mation No Information Assessments Type Assessment Date assessment Body mass index (BMI) 19 or less , adult assessment Low back pain assessment Peroneal tendinitis of right low er extremity assessment Spondylolisthesis at L4-L5 level Patient Care Teams Name Effective Dates (start - stop) Status Members No Information
[2025-02-24 14:00] LABS: Alanine Aminotransferase 20 U/L (6-35); Alkaline Phosphatase 60 U/L (38-126); Aspartate Amino Transferase 54 U/L (14-36); Bilirubin,Total 0.7 mg/dL (0.2-1.3); Total Protein 7.4 g/dL (6.3-8.2)
[2025-02-24 14:41] LABS: Albumin Level 4.7 g/dL (3.5-5.1)
--- OUTSIDE RECORDS SUMMARY | 2025-02-25 10:18 | XMS_ITS | Encounter Summary ---
Author Organization [facility] Facility Care Team Providers Care Deicer Repairer Pneumatic Name Role Phone Tara Hudson MD Primary Care Provider [phone] Gege Herrera MD Primary Care Provider Rachel Friend LOCAL BULK DRIVER Primary Care Provider [phone] Emily Clements LOCAL BULK DRIVER Primary Care Provider [phone] Rachel Friend LOCAL BULK DRIVER Primary Care Provider [phone] Todd Cedeno MD Unavailable [phone] Encounter Details Date Type Department Care Team (Latest Contact Info) Description 11/25/2017 Orders Only [facility] ProviderAlhaji MD [address] [place] [address] Social History Tobacco Use Types Packs/Day Years Used Date Smoking Tobacco: Never Assessed Comments Unknown Sex and Gender Information Value Date Recorded Sex Assigned at Not on file 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 Gender Identity Female 12/12/2018 8:34 AM [...] on filedocumented in this encounter Care Teams Deicer Repairer Pneumatic Relationship Specialty Start Date End Date Tara Hudson MD [address] [facility] [address] [place] [address] PCP - General 12/17/16 11/02/19 Gege Herrera MD [address] [address] PCP - General Family Medicine 11/03/19 10/16/20 Rachel Friend NP [address] [facility] [address] [place] [address] PCP - General Family Medicine 10/17/20 01/09/23 Emily Clements NP [address] [place] [address] PCP - General Nurse Practitioner 01/10/23 11/25/23 Rachel Friend NP [address] [place] [address] PCP - General Family Medicine 11/26/23 Todd Cedeno MD [address] [place] [address] Consulting Physician Cardiology 07/15/24 documented as of this encounter
--- OUTSIDE RECORDS SUMMARY | 2025-02-25 10:18 | XMS_ITS | Encounter Summary ---
Author Organization [facility] Facility Care Team Providers Care Cheese Grader Name Role Phone Tara Hudson MD Primary Care Provider [phone] Gege Herrera MD Primary Care Provider Rachel Friend DRIVER STARTING GATE Primary Care Provider [phone] Emily Clements DRIVER STARTING GATE Primary Care Provider [phone] Rachel Friend DRIVER STARTING GATE Primary Care Provider [phone] Todd Cedeno MD Unavailable [phone] Encounter Details Date Type Department Care Team (Latest Contact Info) Description 02/22/2016 Orders Only [facility] ProviderAlhaji MD [address] [place] [address] Social History Tobacco Use Types Packs/Day Years Used Date Smoking Tobacco: Never Assessed Comments Unknown Sex and Gender Information Value Date Recorded Sex Assigned at Not on file 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 [facility] Provider Final Res ult * PROCEDURE - RESULT (02/22/2016 12:00 AM CDT) Narrative 02/22/2016 12:00 AM CDT Ordered by an unspecified provider. [facility] Provider Final Res ult documented in this encounter Visit Diagnoses Not on filedocumented in this encounter Care Teams Cheese Grader Relationship Specialty Start Date End Date Tara Hudson MD [address] [address] PCP - General 12/17/16 11/02/19 Gege Herrera MD [address] [address] PCP - General Family Medicine 11/03/19 10/16/20 Rachel Friend NP [address] [address] PCP - General Family Medicine 10/17/20 01/09/23 Emily Clements NP [address] [place] [address] PCP - General Nurse Practitioner 01/10/23 11/25/23 Rachel Friend NP [address] [place] [address] PCP - General Family Medicine 11/26/23 Todd Cedeno MD [address] [place] [address] Consulting Physician Cardiology 07/15/24 documented as of this encounter
--- OUTSIDE RECORDS SUMMARY | 2025-02-25 10:18 | XMS_ITS | Encounter Summary ---
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
--- OUTSIDE RECORDS SUMMARY | 2025-02-25 10:18 | XMS_ITS | Encounter Summary ---
Author Organization [facility] Facility Care Team Providers Care Wire Frame Lamp Shade Maker Name Role Phone Tara Hudson MD Primary Care Provider [phone] Gege Herrera MD Primary Care Provider Rachel Friend MUCKING MACHINE OPERATOR Primary Care Provider [phone] Emily Clements MUCKING MACHINE OPERATOR Primary Care Provider [phone] Rachel Friend MUCKING MACHINE OPERATOR Primary Care Provider [phone] Todd Cedeno MD Unavailable Encounter Details Date Type Department Care Team (Latest Contact Info) Description 03/05/2016 Orders Only [facility] ProviderAlhaji MD [address] [place] [address] Social History Tobacco Use Types Packs/Day Years Used Date Smoking Tobacco: Never Assessed Comments Unknown Sex and Gender Information Value Date Recorded Sex Assigned at Not on file 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 Gender Identity Female 12/12/2018 8:34 AM CDT Sexual Orientation Straight 12/12/2018 8: 34 AM CDT documented as of this encounter Plan of Treatment Not on file documented as of this encounter Procedures Procedure Name Priority Date/Time Associated Diagnosis Comments PROCEDURE - RESULT 03/05/2016 12 :00 AM MOLYBDENUM STEAMER OPERATOR PROCEDURE - RESULT 03/05/2016 12 :00 AM MOLYBDENUM STEAMER OPERATOR documented in this encounter Results * PROCEDURE - RESULT (03/05/2016 12:00 AM MOLYBDENUM STEAMER OPERATOR) Narrative 03/05/2016 12:00 AM MOLYBDENUM STEAMER OPERATOR Ordered by an unspecified provider. us Historical Provider Final Res ult * PROCEDURE - RESULT (03/05/2016 12:00 AM MOLYBDENUM STEAMER OPERATOR) Narrative 03/05/2016 12:00 AM MOLYBDENUM STEAMER OPERATOR Ordered by an unspecified provider. us Historical Provider Final Res ult documented in this encounter Visit Diagnoses Not on filedocumented in this encounter Care Teams Wire Frame Lamp Shade Maker Relationship Specialty Start Date End Date Tara Hudson MD [address] [address] PCP - General 12/17/16 11/02/19 Gege Herrera MD [address] [address] PCP - General Family Medicine 11/03/19 10/16/20 Rachel Friend NP [address] [address] PCP - General Family Medicine 10/17/20 01/09/23 Emily Clements NP [address] [place] [address] PCP - General Nurse Practitioner 01/10/23 11/25/23 Rachel Friend, AIRAM [address] [place] [address] PCP - General Family Medicine 11/26/23 Todd Cedeno MD [address] [place] [address] Consulting Physician Cardiology 07/15/24 documented as of this encounter
--- OUTSIDE RECORDS SUMMARY | 2025-02-25 10:18 | XMS_ITS | Clinical Summary ---
Author Organization [facility] Address [address] [place] [address] Care Team Providers Care Press Operator Meat Name Role Phone Rachel Friend NP Primary Care Provider [phone] Todd Cedeno MD Unavailable [phone] Allergies Active Allergy Reactions Criticality Noted Date [...] for fluid retention 20 tablet 1 Active Hospital, Clinic, or Other Facility Administered Medication Ordered Dose Route Frequency Start Date End Date Status hylan g-f 20 (SYNVISC-ONE) 48 mg/6 mL injection 48 mgIndications:Oste oarthritis of the Knee 48 mg intra-artic One-Time Injection 02/17/2025 02/17/2025 Ended hylan g-f 20 (SYNVISC-ONE) 48 mg/6 mL injection 48 mgIndications:Oste oarthritis of the Knee 48 mg intra-artic One-Time Injection 02/17/2025 02/17/2025 Ended lidocaine (XYLOCAINE) 10 mg/mL (1 %) injection 2 mLIndications:Admi nistration of Local Anesthesia 2 mL One-Time Injection 02/17/2025 02/17/2025 Ended methylPREDNISolone acetate (DEPO-medrol) injection 40 mgIndications:Troc hanteric bursitis of left hip 40 mg intra-artic One-Time Injection 02/17/2025 02/17/2025 Ended Active Problems Problem Noted Date Diagnosed [...] is likely to be problematic in the medical terminologist. Because of this combination of factors, we [...] we will prioritize PLAAO/C. From: Олег ABRAMS, Corenlio HOLLIS, Linden AL, et al. 2022 CC/AHA/ACCP/HRS Guideline for the Diagnosis and Management of Atrial Fibrillation: A Report of the [place] College [employer]iology/ [place] Heart Association Joint Committee on Clinical Practice Guidelines. 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 Dx; Syncope, Tachycardia, Palpitations. DOI 06/15/2022-Fleissner. Carney Carelink remote monitoring. Visit for wound check [...] Encounters Date Type Department Care Team Description 02/22/2025 7:15 AM FLIGHT ATTENDANT/INFLIGHT MANAGER Ancillary Procedure [facility] Card[facility] [address] [facility] [address] [address] Palpitations; Status post placement of implantable loop recorder; Syncope and collapse; SVT (supraventricular tachycardia) 02/17/2025 10:00 AM CDT Procedure visit [facility] [address] [place] [address] [place] [phone] Dallas Caruso MD Primary osteoarthritis of both knees; Trochanteric bursitis of left hip 02/01/2025 3:00 PM CDT Telemedicine [facility] [address] [facility] [address] [phone] Lilian Stallworth NP Presence of Watchman left atrial appendage closure device (Primary Dx); Paroxysmal atrial fibrillation (HCC) 02/01/2025 9:11 AM CDT Anesthesia Event [facility] [address] [place] [phone] Fredo Reynoso DO Strand, Sarah B., MD 02/01/2025 7:46 AM CDT - 02/01/2025 11:59 PM CDT Hospital Encounter [facility] [address] [place] [phone] Barak Calix MD PhD Fredo Reynoso DO Paroxysmal atrial fibrillation (HCC) Discharge Disposition: Discharge to home or self care 01/29/2025 Orders Only [facility] [address] [place] [phone] Alhaji Espinoza MD 01/29/2025 Telephone [facility] [address] [place] [address] Todd Cedeno MD Surgical Clearance 01/27/2025 8:45 AM CDT Office Visit [facility] [address] [place] [address] [address] [place] [phone] Todd Cedeno MD Elevated AST (SGOT) (Primary Dx); 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; Paroxysmal atrial fibrillation (HCC); SVT (supraventricular tachycardia); Benign essential hypertension; Moderate tricuspid insufficiency 01/26/2025 Telephone [facility] [address] [facility] [address], [place] [phone] Teresa Yuen RN 01/19/2025 Telephone [facility] [address] [place] [address] [place] [phone] Todd Cedeno MD 01/11/2025 7:00 AM CDT Ancillary Procedure [facility] [address] [facility] [address] [address] Palpitations; Status post placement of implantable loop recorder; Syncope and collapse; SVT (supraventricular tachycardia) 01/01/2025 Telephone [facility] [address] [place] [address] [place] [phone] Todd Cedeno MD 12/22/2024 4:05 PM CDT - 12/22/2024 5:35 PM CDT Surgery [facility] [address] [phone] Tigre Triana MD PERC STACEY CLOSE W/IMPLANT 36030 12/22/2024 3:22 PM CDT Anesthesia Event [address] [phone] Ion Mccollum MD Fichter, Christopher Robert, MD 12/22/2024 1:50 PM CDT - 12/22/2024 7:28 PM CDT Hospital Encounter [facility] [address] [phone] Tigre Triana MD Paroxysmal atrial fibrillation (HCC) Discharge Disposition: Discharge to home or self care 12/15/2024 Telephone [facility] [address] [facility] [address], [place] [phone] Teresa Yuen RN 12/11/2024 11:00 AM CDT Office Visit [facility] Card[facility] [address] [address] [address] [place] [address] Minerva Chua NP SVT (supraventricular tachycardia) (Primary Dx); Paroxysmal atrial fibrillation (HCC); Status post placement of implantable loop recorder; Coronary artery disease involving quinault coronary artery of quinault heart without angina pectoris; Benign essential hypertension 12/10/2024 10:00 AM CDT Office Visit [facility] [address] [place] [address] [place] [phone] Tigre Triana MD Paroxysmal atrial fibrillation (HCC) (Primary Dx); Status post placement of implantable loop recorder 12/10/2024 Telephone [facility] [address] [place] [address] [place] [phone] Teresa Yuen RN 11/30/2024 7:00 AM CDT Ancillary Procedure [facility] [address] [facility] [address] [place] [phone] Palpitations; Status post placement of implantable loop [...] Procedure: PCI BALJEET MAJOR CORONARY C9600 - 22447; Surgeon: Xu Bhardwaj MD; Location: [facility] CARDIAC [facility]; Service: Cardiovascular; Laterality: N/A; Medical devices from this surgery are in the Medical Devices section. CARDIAC CATHETERIZATION 07/14/2024 N/A Procedure: Percutaneous Coronary Lithotripsy W/ PCI (+) [id number]; Surgeon: Xu Bhardwaj MD; Location: [facility] [place] [facility]; Service: Cardiovascular; Laterality: N/A; Medical devices from this surgery are in the Medical Devices section. CARDIAC CATHETERIZATION 07/14/2024 N/A Procedure: IVUS NON-COR 1ST VESSEL; Surgeon: Xu Bhardwaj MD; Location: [facility] [place] [facility]; Service: Cardiovascular; Laterality: N/A; Medical devices from this surgery are in the Medical Devices section. IMPLANTABLE CARDIAC DEVICE 12/22/2024 N/A Procedure: PERC STACEY CLOSE W/IMPLANT 46050; Surgeon: Tigre Triana MD; Location: [facility] [place] [facility]; Service: Cardiovascular; Laterality: N/A; Medical devices from [...] Mixed conductive and sensori neural hearing loss 1996 Family History Medical History Relation Name Comments [...] 0.6 oz pur e alcohol) [facility] Utilities Answer Date Recorded In the [...] often do you attend chur ch or mandaen services? Never 07/15/2024 Do you belong to any clubs o r organizations such as jehovah's witness groups, unions, fraternal or athletic groups, or [...] any time in the past 12 m [facility], were you homeless or living in [...] on file Legal Sex Female 1:32 AM FLIGHT ATTENDANT/INFLIGHT MANAGER Gender Identity Female 12/12/2018 8:34 AM [...] - - Weight 51.3 kg (113 lb) 02/17/2025 10:02 AM CDT Height 160 cm (5' 3) 02/17/2025 10:02 AM CDT Body Mass Index 20.02 02/17/2025 10:02 AM CDT Plan of Treatment Health Maintenance [...] 019, 02/10/2018 Medical Devices Implanted Type Area Circuit Breaker Supervisor Device Identifier Shelf Expiration Date Model / Serial / Lot Implantable Loop Recorder Implantable Loop Recorder Chest [employer] [place] [employer] Cornelius Device Closure 24mm Lt Watchman Flx Pro Cardiac Strl La [id number] - [id number] - [id number] Implanted:Qty: 1 on 12/22/2024 by Tigre Triana MD at [facility] Left Atrial Appendage Occluder [place] [employer] Cornelius 10/13/2027 [id number] / [id number] / [id number] Cast Vascular System Closure Repair Femoral Artery Suture Mediated Perclose Prostyle 07466-50 - S0 - [id number] Implanted:Qty: 1 on 07/14/2024 by Xu Bhardwaj MD at [facility] Other - see comments Cast Vascular 03/21/2026 40501-68 / 0 / [id number] [employer] Device Vascular Closure Vascade Mvp Xl 10-12fr Venous Strl 800-1012xl - [id number] - [id number] Implanted:Qty: 1 on 12/22/2024 by Tigre Triana MD at [facility] Vascular Closure Device Cardiva [employer] Inc 10/12/2026 800-1012X L / [id number] / [id number] Medtronic Inc Infuse Kit Xs Graft Bone Rhbmp-2 Bovine Collagen Lumbar Taper [id number] - [id number] Implanted:Qty: 1 on 12/05/2022 by Ion Vergara MD at [facility] N/A: Ronald Medtronic Inc [id number] 04/21/2024 [id number] / / [id number] C Elvia [employer] Vitoss Void Filler Foam Pack Bioactive Substitute 2.5ml Bone 2703-6535 - [id number] Implanted:Qty: 1 on 12/05/2022 by Ion Vergara MD at [facility] N/A: Ronald [place] [employer] [id number] 06/19/2023 0575-4741 / / [id number] Kuliza Synergy Xd Monorail 2.75mm 38mm 144cm Delivery System 1 Access [id number] - S0 - [id number] Implanted:Qty: 1 on 07/14/2024 by Xu Bhardwaj MD at [facility] Cornelius 11/27/2025 [id number] / 0 / [id number] Explanted Type Area Circuit Breaker Supervisor Device Identifier Shelf Expiration Date Model / Serial / Lot [place] Craniomaxillofacial Leibinger [place] 2 2mm 5mm Self Tap Cross Pin Maxillofacial 50- - [id number] Implanted:Qty: 8 on 12/05/2022 by Ion Vergara MD at [facility] Explanted:Qty: 8 on 01/10/2023 at [facility] [place] Mandible Elvia Craniomaxillofacial 50- / / [place] Craniomaxillofacial Leibinger [place] 2 Smart Lock 9 Hole Mandible Small Plate Bone [id number] - [id number] Implanted:Qty: 2 on 12/05/2022 by Ion Vergara MD at [facility] Explanted:Qty: 2 on 01/10/2023 at [facility] Mandible [place] Craniomaxillofacial [id number] / / Elvia Craniomaxillofacial Leibinger [place] 2 Smartlock 2mm 8mm Self Drill Lock 50-09301 - [id number] Implanted:Qty: 10 on 12/05/2022 by Ion Vergara MD at [facility] Explanted:Qty: 10 on 01/10/2023 at [facility] Mandible Elvia Craniomaxillofacial [id number] / / [place] Craniomaxillofacial 16 Hole Maxillofacial 1.5mm Mini Plate Bone 92-26476 - [id number] Implanted:Qty: 1 on 12/05/2022 by Ion Vergara MD at [facility] Explanted:Qty: 1 on 01/10/2023 by Ion Vergara MD at [facility] Mandible Elvia Craniomaxillofacial [id number] / / Elvia Craniomaxillofacial Leibinger [place] 2 2mm 8mm Lock Cross Pin Mandibular Screw [id number] - [id number] Implanted:Qty: 2 on 12/05/2022 by Ion Vergara MD at [facility] Explanted:Qty: 2 on 01/10/2023 at [facility] Mandible [place] Craniomaxillofacial [id number] / / [place] Craniomaxillofacial Leibinger [place] 2 2mm 10mm Lock Cross Pin Maxillofacial Screw [id number] - [id number] Implanted:Qty: 2 on 12/05/2022 by Ion Vergara MD at [facility] Explanted:Qty: 2 on 01/10/2023 at [facility] Mandible Elvia Craniomaxillofacial [id number] / / Elvia Craniomaxillofacial Leibinger [place] 2 2mm 12mm Lock Cross Pin Maxillofacial Screw [id number] - [id number] Implanted:Qty: 2 on 12/05/2022 by Ion Vergara MD at [facility] Explanted:Qty: 2 on 01/10/2023 at [facility] Mandible [place] Craniomaxillofacial [id number] / / Elvia Craniomaxillofacial Plate Mini 8mm Mndb [address] Condensed 2mm Screw Bone Ti [id number] - [id number] Implanted:Qty: 1 on 12/05/2022 by Ion Vergara MD at [facility] Explanted:Qty: 1 on 01/10/2023 at [facility] Mandible [place] Craniomaxillofacial [id number] / / Procedures Procedure Name Priority Date/Time Associated Diagnosis Comments DEVICE CHECK - REMOTE Routine 02/23/2025 8:45 AM FLIGHT ATTENDANT/INFLIGHT MANAGER Palpitations Status post placement of implantable loop recorder Syncope and collapse SVT (supraventricular tachycardia) MO ARTHROCENTESIS ASPIR&/INJ MAJOR JT/BURSA W/O US Routine 02/17/2025 10:00 AM CDT Trochanteric bursitis of left hip MO ARTHROCENTESIS ASPIR&/INJ MAJOR JT/BURSA W/O US Routine 02/17/2025 10:00 AM CDT Primary osteoarthritis of both knees TRANSESOPHAGEAL ECHO (WHIT) W DOPPLER/CF WO CONTRAST Routine 02/01/2025 9:58 AM CDT Paroxysmal atrial fibrillation (HCC) DEVICE CHECK - REMOTE Routine 01/11/2025 3:36 PM CDT Palpitations Status post placement of implantable loop recorder Syncope and collapse SVT (supraventricular tachycardia) LIPID PANEL Routine 01/04/2025 5:48 PM CDT ECG 12-LEAD Routine 12/22/2024 5:29 PM CDT WHIT GUIDANCE DURING CARDIAC STRUCTURAL INTVN 20324 Routine 12/22/2024 4:26 PM CDT PERC STACEY CLOSURE W/IMPLANT (WATCHMAN) [id number] Routine 12/22/2024 4:10 PM CDT Paroxysmal atrial fibrillation (HCC) POCT ACTIVATED CLOTTING TIME, HIGH RANGE Routine 12/22/2024 3:56 PM CDT MO AN PROCEDURE PLACEHOLDER Routine 12/22/2024 3:41 PM CDT MO AN ELECTIVE ENDOTRACHEAL AIRWAY Routine 12/22/2024 3:41 [...] tachycardia) from Last 3 Months Results * DEVICE CHECK - REMOTE (02/23/2025 8:45 AM FLIGHT ATTENDANT/INFLIGHT MANAGER) Anatomical Region Laterality Modality Other Narrative 02/23/2025 12:07 PM FLIGHT ATTENDANT/INFLIGHT MANAGER CARD.comtronic LNQ22 Loop Recorder. Dx; Syncope, Tachycardia, Palpitations. DOI 06/15/2022-Fleissner. Mirza. Carelink remote monitoring, watchman 12/22/24 Routine ILR remote. Normal device function. Battery function-good Presenting rhythm: NSR Medications: ASA 81 mg, clopidogrel 75 mg, diltiazem 120 mg, lisinopril 40 mg Counters since last scheduled transmission on 01/11/25. --1 Tachy - EGM demonstrates AFib with RVR. Correlates with 1 of the symptom episode reports --0 Lorne --0 Pause --2 Symptom - both EGMs demonstrate AFib with RVR --41 AF - EGMs demonstrate AFib. Longest recorded episode was 56 minutes in duration. AFib burden 2.1% See scanned report. CareLink remote f/u 04/05/25. Rickey Andrade, RN us Todd Cedeno MD CV [facility] Final Result * MO ARTHROCENTESIS ASPIR&/INJ MAJOR JT/BURSA W/O US (02/17/2025 10:00 AM CDT) Dallas Mcdowell MD - 02/17/2025 10:00 AM CDT Dallas Caruso MD 02/17/2025 10:03 AM Large Joint (Hip, Knee, Shoulder) Injection: L greater trochanteric bursa Performed by: Dallas Caruso MD Authorized by: Dallsa Caruso MD Large Joint Injection/Aspiration: Consent Given [...] G Approach: Lateral Ultrasound guided: No Medications: 2 mL lidocaine 10 mg/mL (1 %); 40 mg methylPREDNISolone acetate 40 mg/mL Patient tolerance: Patient tolerated the procedure well with no immediate complications us Dallas Caruso MD IN CLINIC/BEDSIDE ORDERABLES Final Result * MO ARTHROCENTESIS ASPIR&/INJ MAJOR JT/BURSA W/O US (02/17/2025 10:00 AM CDT) Dallas Mcdowell MD - 02/17/2025 10:00 AM CDT Dallas Caruso MD 02/17/2025 10:03 AM Large Joint (Hip, Knee, Shoulder) Injection: [...] MD IN CLINIC/BEDSIDE ORDERABLES Final Result * TRANSESOPHAGEAL ECHO (WHIT) W DOPPLER/CF WO CONTRAST (02/01/2025 9:58 AM CDT) Estimated EF 65-70 % CONS SCIMAGE Anatomical Region Laterality Modality Echocardiography 02/01/2025 9:05 AM CDT Narrative 02/01/2025 11:46 AM CDT [facility] [address] [place] [address] TRANSESOPHAGEAL ECHOCARDIOGRAM Patient Name: KATINA FISH : 1945 (79y 10m) Sex: F Study Date: 02/01/2025 09:05:53 AM Ht(Inch): 65 Wt(Lb): 116.01 BSA: 1.55 Epic Beacon Analyst: VICKI Location: [facility] Order Provider: TIGRE TRIANA BMI: 19.3 BP: [...] Note Barak Calix MD PhD - 02/01/2025 [facility] [address] [place] [address] TRANSESOPHAGEAL ECHOCARDIOGRAM Patient Name: KATINA FISH : 1945 (79y 10m) Sex: F Study Date: 02/01/2025 09:05:53 AM Ht(Inch): 65 Wt(Lb): 116.01 BSA: 1.55 Epic Beacon Analyst: VICKI Location: [facility] Order Provider: TIGRE TRIANA BMI: 19.3 BP: [...] Calix MD PhD 02/01/2025 11:45:28 AM CDT Tigre Triana MD CV ECHO PROCEDURES Radha l Result * DEVICE CHECK - REMOTE (01/11/2025 3:36 PM CDT) Anatomical Region Laterality Modality Other Narrative 01/29/2025 3:59 PM CDT Preen.Me LNQ22 Loop Recorder. Dx; Syncope, Tachycardia, Palpitations. [...] duration. AFib burden 2.4% See scanned report. [facility]Link remote f/u 02/22/25. Rickey Andrade, RN Todd Cedeno MD CV [facility] Final Result * Lipid panel (01/04/2025 5:48 PM CDT) SCRIBED Cholesterol, Total 171 30 - 199 mg/dL EXTERNAL LAB SCRIBED Triglycerides 39 <=149 mg/dL EXTERNAL LAB SCRIBED HDL 104 >=40 mg/dL EXTERNAL LAB SCRIBED LDL 39 <=129 mg/dL EXTERNAL LAB Scribed Non-HDL Cholesterol EXTERNAL LAB Comment:Not performed by lab . SCRIBED Total Cholesterol/HDL Ratio 171 NONE EXTERNAL LAB Blood Historical Provider LAB BLOOD ORDERABLES Edit ed Result - Final Performing Organization Address [facility] de Phone Number EXTERNAL LAB * ECG 12 lead (12/22/2024 5:29 PM CDT) 12/22/2024 5:29 PM CDT Narrative [facility] - 12/23/2024 10:59 AM CDT Vent Rate: 66 bpm RR Interval: 907 msec MO Interval: 236 msec QRS Duration: 125 msec QT Interval: 391 msec QTC Interval: 404 msec P-R-T Maynard: 59 - -50 - 14 degrees IMPRESSION: SINUS RHYTHM WITH FIRST DEGREE AV BLOCK LEFT ANTERIOR FASCICULAR BLOCK [QRS AXIS <= -45, QR IN I, RS IN II] POSSIBLE ANTERIOR MYOCARDIAL INFARCTION (MINIMAL R-WAVE PROGRESSION PRESENT) ABNORMAL ECG Electronically Signed By: Barak Coombs MD [facility] us Tigre Triana MD ECG ORDERABLES Final R esult Performing Organization Address [facility] de Phone Number [facility] * WHIT Guidance [place] [id number] (12/22/2024 4:26 PM CDT) Anatomical Region Laterality Modality Echocardiography 12/22/2024 3:23 PM CDT Narrative 12/22/2024 5:55 PM CDT [facility] [address] [place] [address] TRANSESOPHAGEAL ECHOCARDIOGRAM Patient Name: KATINA FISH : 1945 (79y 8m) Sex: F Study Date: 12/22/2024 03:23:12 PM Ht(Inch): 65 Wt(Lb): 117 BSA: 1.56 Epic Beacon Analyst: DANIELLE Location: 6152 Order Provider: TIGRE TRIANA [...] end of the case. Predominant flow is [id number]-nd-uxldr. Mitral Valve: Normal appearance of the mitral [...] end of the case. Predominant flow is iawe-qi-laiwl. 4. Normal appearance of the mitral valve. [...] Procedure Note Geovanny Harris MD - 12/22/[address] [address] TRANSESOPHAGEAL ECHOCARDIOGRAM Patient Name: KATINA FISH : 1945 (79y 8m) Sex: F Study Date: 12/22/2024 03:23:12 PM Ht(Inch): 65 Wt(Lb): 117 BSA: 1.56 Epic Beacon Analyst: DANIELLE Location: 52 Order Provider: TIGRE TRIANA BMI: 19.47 BP: [...] the end of thecase. Predominant flow is esrx-oh-atbfc. Mitral Valve: Normal appearance of the mitral [...] the end of the case.Predominant flow is krvw-cg-aruup. 4. Normal appearance of the mitral valve. [...] Result * PERC STACEY CLOSURE W/IMPLANT (WATCHMAN) [id number] (12/22/2024 4:10 PM CDT) Anatomical Region Laterality Modality X-Ray Angiograph y Tigre Triana MD CV ELECTROPHYSIOLOGY [facility] Final Result * (ABNORMAL) POC Activated Clotting Time, High Range (12/22/2024 3:56 PM CDT) ACT 390(H) 87 - 138 sec Blood 12/22/2024 3:56 PM CDT 12/22/2024 3:56 PM CDT Tigre Triana MD LAB BLOOD ORDERABLES Fi nal Result [facility] [address] [place] [address] * MO AN ELECTIVE ENDOTRACHEAL AIRWAY, MO AN PROCEDURE PLACEHOLDER (12/22/2024 3:41 PM CDT) Narrative Oma Montes De Oca CRNA - 12/22/2024 3:41 PM CDT Oma Montes De Oca CRNA 12/22/2024 3:53 PM Airway Patient location: OR Urgency: elective Date/time: 12/22/2024 3:33 PM Indications for airway management: anesthesia Difficult airway: no Staff: Placed by: Anesthesiologist: Ion Mccollum MD MACHINIST GENERAL: Birdsell, Oma Minoo, MACHINIST GENERAL Emergent airway documentation: Risks and benefits discussed: [...] CDT) 12/22/2024 2:52 PM CDT Narrative [facility] - 12/23/2024 9:32 AM CDT Vent Rate: 67 bpm RR Interval: 889 msec MO Interval: 231 msec QRS Duration: 110 msec QT Interval: 379 msec QTC Interval: 394 msec P-R-T Maynard: 53 - -54 - 28 degrees IMPRESSION: SINUS RHYTHM WITH FIRST DEGREE AV BLOCK LEFT ANTERIOR FASCICULAR BLOCK [QRS AXIS <= -45, QR IN I, RS IN II] POOR R-WAVE PROGRESSION; POSSIBLE ANTERIOR MYOCARDIAL INFARCTION ABNORMAL ECG Electronically Signed By: Barak Coombs MD [facility] us Tigre Triana MD ECG ORDERABLES Final R esult [facility] * Type and screen (12/22/2024 1:58 PM CDT) ABO Rh A Negative Timo, indirect Negative [facility] Blood 12/22/2024 1:58 PM CDT 12/22/2024 2:24 PM CDT Narrative [facility] - 12/22/2024 3:14 PM CDT Has the patient had Daratumumab or Isatuximab in the past 6 months?->Unknown Tigre Triana MD LAB BLOOD BANK TEST ORD ERABLES Final Result [facility] [address] [place] [address] * ECG 12 lead (12/10/2024 10:03 AM CDT) Tigre Triana MD ECG ORDERABLES Final R esult * DEVICE CHECK - REMOTE (12/01/2024 10:58 AM CDT) Anatomical Region Laterality Modality Other Narrative 12/15/2024 12:15 PM CDT Preen.Me LNQ22 Loop Recorder. Dx; Syncope, Tachycardia, Palpitations. [...] Advance Directives For more information, please contact: [phone] Documents on File Type Date Recorded Patient Distribution Sales Representative Expl anation ADVANCE DIRECTIVE 08/21/2012 12:00 AM BILLYABDIAS Leger WILL ADVANCE DIRECTIVE 08/21/2012 12:00 AM POWER OF ELECTRICAL MAINTENANCE WORKER FINANCIAL/MEDICAL * Full Code (Latest Code Status on File) Date Activated Date Inactivated Comments 07/14/2024 12:14 PM 07/15/2024 6:47 PM * Full Code Date Activated Date Inactivated Comments 12/04/2022 12:40 AM 12/07/2022 8:03 PM Care Teams Press Operator Meat Relationship Specialty Start Date End Date Rachel Friend NP [address] [place] [address] PCP - General Family Medicine 11/26/23 Todd Cedeno MD [address] [place] [address] Consulting Physician Cardiology 07/15/24
--- OUTSIDE RECORDS SUMMARY | 2025-02-25 10:18 | XMS_ITS | Encounter Summary ---
Author Organization [facility] Healthcare Address [address] [place] [address] Care Team Providers Care Crown Ironer Name Role Phone Rachel Friend NP Primary Care Provider [phone] Todd Cedeno MD Unavailable [phone] Reason for Visit * Reason Onset Date Comments Surgical Clearance 01/29/2025 Encounter Details Date Type Department Care Team (Late st Contact Info) Description 01/29/2025 Telephone [facility] Medical Group Cardiology [address] [place] [address] Todd Cedeno MD [address] [facility] [address] [facility], [address] [place] [address] Surgical Clearance Social History Tobacco Use Types Packs/Day Years Used Date Smoking Tobacco: Never Smokeless Tobacco: Never Alcohol Use Standard Drinks/Week Comments Yes 0 (1 standard drink = 0.6 oz pur e alcohol) [facility] Utilities Answer Date Recorded In the [...] often do you attend chur ch or congregational services? Never 07/15/2024 Do you belong to any clubs o r organizations such as episcopalian groups, unions, fraternal or athletic groups, or [...] any time in the past 12 m [facility], were you homeless or living in a care home (including now)? No 07/15/2024 Personal Safety Answer Date Recorded Have you ever been in or are you currently in a harmful physical or emotional relationship or is someone making you feel afraid or unsafe? 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 * Telephone Encounter - Rosalind Brothers - 02/01/2025 9:29 AM CDT Anna from [facility] requesting a call back to get an update on the clearance regarding the ptscolonoscopy. Please advise. Thank you. Contact [phone] * Telephone Encounter - Mame Roque RN - 01/29/2025 3:20 PM CDT ANIA on with Anna in endoscopy, advised that we have received cardiac clearance request and will have [facility] review. * Telephone Encounter - Jayla Koenig - 01/29/2025 3:06 PM CDT Anna from Endo dept called in and states the patient is scheduled for a colonoscopy on 02/09. Patient told her that [facility] wants her to hold off on procedure. Requesting a call back. Please advise. Thank you. Contact : [phone] documented in this encounter Plan of Treatment Not on file documented as of this encounter Visit Diagnoses Not on filedocumented in this encounter Care Teams Crown Ironer Relationship Specialty Start Date End Date Rachel Friend NP [address] [place] [address] PCP - General Family Medicine 11/26/23 Todd Cedeno MD [address], [address] [place] [address] Consulting Physician Cardiology 07/15/24 documented as of this encounter
--- OUTSIDE RECORDS SUMMARY | 2025-02-25 10:18 | XMS_ITS | Clinical Summary ---
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 Not on file Not on file Not on file Last Filed Vital Signs Vital Sign Reading Time Taken Comments Blood Pressure 148/89 05/09/2022 11:53 AM RN INTERVENTIONAL Pulse 93 05/09/2022 11:53 AM RN INTERVENTIONAL Temperature 36.6 C (97.8 F) 05/09/2022 11:53 AM RN INTERVENTIONAL Respiratory Rate 18 04/20/2022 8:01 AM RN INTERVENTIONAL Oxygen Saturation 99% 04/20/2022 8:01 AM RN INTERVENTIONAL Inhaled Oxygen Concentration - - Weight 51.9 kg (114 lb 6.4 oz) 05/09/2022 11:53 AM RN INTERVENTIONAL Height 160 cm (5' 3) 05/09/2022 11:53 AM RN INTERVENTIONAL Body Mass Index 20.27 05/09/2022 11:53 AM RN INTERVENTIONAL Plan of Treatment Health Maintenance Due Date [...] age to complete this topic Insurance MEDICARE [facility] Care Teams Shoe Stock Associate Relationship Specialty Start Date End Date Rachel Friend FNP PCP - General Nurse Practitioner Family 07/20/21
--- OUTSIDE RECORDS SUMMARY | 2025-02-25 10:18 | XMS_ITS | Encounter Summary ---
Author Organization [facility] Care Team Providers Care Athletic Scout Name Role Phone Taar Hudson MD Primary Care Provider [phone] Gege Herrera MD Primary Care Provider Rachel Friend RAILROAD SIGNAL OPERATOR Primary Care Provider [phone] Emily Clements RAILROAD SIGNAL OPERATOR Primary Care Provider [phone] Rachel Friend RAILROAD SIGNAL OPERATOR Primary Care Provider [phone] Todd Cedeno MD Unavailable [phone] Encounter Details Date Type Department Care Team (Latest Contact Info) Description 12/02/2017 Orders Only [facility]IN[facility] ProviderAlhaji MD [address] [place] [address] Social History Tobacco Use Types Packs/Day Years Used Date Smoking Tobacco: Never Assessed Comments Unknown Sex and Gender Information Value Date Recorded Sex Assigned at Not on file Legal Sex Female 1:32 AM PUTTY TINTER 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 Gender Identity Female 12/12/2018 8:34 AM [...] on filedocumented in this encounter Care Teams Athletic Scout Relationship Specialty Start Date End Date Tara Hudson MD [address] [facility] [address] [place] [address] PCP - General 12/17/16 11/02/19 Gege Herrera MD [address] [address] PCP - General Family Medicine 11/03/19 10/16/20 Rachel Friend NP [address] [facility] [address] [place] [address] PCP - General Family Medicine 10/17/20 01/09/23 Emily Clements NP [address] [place] [address] PCP - General Nurse Practitioner 01/10/23 11/25/23 Rachel Friend, AIR[address] [place] [address] PCP - General Family Medicine 11/26/23 Todd Cedeno MD [address] [place] [address] Consulting Physician Cardiology 07/15/24 documented as of this encounter
--- OUTSIDE RECORDS SUMMARY | 2025-02-25 10:18 | XMS_ITS | Encounter Summary ---
Author Organization [facility] Care Team Providers Care Booth Manager Name Role Phone Tara Hudson MD Primary Care Provider [phone] Gege Herrera MD Primary Care Provider Rachel Friend BILLING ASSOCIATE Primary Care Provider [phone] Emily Clements BILLING ASSOCIATE Primary Care Provider [phone] Rachel Friend BILLING ASSOCIATE Primary Care Provider [phone] Todd Cedeno MD Unavailable [phone] Encounter Details Date Type Department Care Team (Latest Contact Info) Description 02/06/2016 Orders Only [facility] CLINCONV ProviderAlhaji MD [address] [place] [address] Social History Tobacco Use Types Packs/Day Years Used Date Smoking Tobacco: Never Assessed Comments Unknown Sex and Gender Information Value Date Recorded Sex Assigned at Not on file 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 Gender Identity Female 12/12/2018 8:34 AM CDT [...] on filedocumented in this encounter Care Teams Booth Manager Relationship Specialty Start Date End Date Tara Hudson MD [address] [address] PCP - General 12/17/16 11/02/19 Gege Herrera MD [address] [address] PCP - General Family Medicine 11/03/19 10/16/20 Rachel Friend NP [address] [facility] [address] [place] [address] PCP - General Family Medicine 10/17/20 01/09/23 Emily Clements NP [address] [place] [address] PCP - General Nurse Practitioner 01/10/23 11/25/23 Rachel Friend, AIRAM [address] [place] [address] PCP - General Family Medicine 11/26/23 Todd Cedeno MD [address] [place] [address] Consulting Physician Cardiology 07/15/24 documented as of this encounter
--- OUTSIDE RECORDS SUMMARY | 2025-02-25 10:18 | XMS_ITS | Encounter Summary ---
Author Organization [facility] Facility Care Team Providers Care Agency Trainer Name Role Phone Tara Hudson MD Primary Care Provider [phone] Gege Herrera MD Primary Care Provider Rachel Friend DIRECTOR DISTRIBUTION Primary Care Provider [phone] Emily Clements DIRECTOR DISTRIBUTION Primary Care Provider [phone] Rachel Friend DIRECTOR DISTRIBUTION Primary Care Provider [phone] Todd Cedeno MD Unavailable [phone] Encounter Details Date Type Department Care Team (Latest Contact Info) Description 01/04/2016 Orders Only [facility] CLINCONV ProviderAlhaji MD [address] [place] [address] Social History Tobacco Use Types Packs/Day Years Used Date Smoking Tobacco: Never Assessed Comments Unknown Sex and Gender Information Value Date Recorded Sex Assigned at Not on file Legal 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 [facility] Provider Final Res ult * PROCEDURE - RESULT (01/04/2016 12:00 AM CDT) Narrative 01/04/2016 12:00 AM CDT Ordered by an unspecified provider. [facility] Provider Final Res ult documented in this encounter Visit Diagnoses Not on filedocumented in this encounter Care Teams Agency Trainer Relationship Specialty Start Date End Date Tara Hudson MD [address] [address] PCP - General 12/17/16 11/02/19 Gege Herrera MD [address] [address] PCP - General Family Medicine 11/03/19 10/16/20 Rachel Friend NP [address] [address] PCP - General Family Medicine 10/17/20 01/09/23 Emily Clements NP [address] [place] [address] PCP - General Nurse Practitioner 01/10/23 11/25/23 Rachel Friend NP [address] [place] [address] PCP - General Family Medicine 11/26/23 Todd Cedeno MD [address] [place] [address] Consulting Physician Cardiology 07/15/24 documented as of this encounter
--- OUTSIDE RECORDS SUMMARY | 2025-02-25 10:18 | XMS_ITS | Clinical Summary ---
Author Organization [facility] [address] [facility] Address [address] [place] [address] Care Team Providers Care Catering Sales Manager Name Role Phone Emily Tejada MD Primary [...] Comments Blood Pressure 132/82 05/31/2022 11:05 AM PUTTY GLAZER Pulse 100 12/22/2021 12:26 PM CDT Temperature 36.7 C (98.1 F) 01/02/2022 10:54 AM CDT Respiratory Rate 16 01/02/2022 10:54 AM CDT Oxygen Saturation 100% 12/22/2021 12:26 PM CDT Inhaled Oxygen Concentration - - Weight 52.7 kg (116 lb 3.2 oz) 02/05/2023 11:35 AM CDT Height 160 cm (5' 3) 05/31/2022 10:59 AM PUTTY GLAZER Body Mass Index 20.58 05/31/2022 10:59 AM PUTTY GLAZER Plan of Treatment Health Maintenance Due Date [...] 01/20/2015, 12/21/2009 Medical Devices Implanted Type Area Respiratory Supervisor Device Identifier Shelf Expiration Date Model / Serial / Lot Infuse Protein Kit Lg Ii [id number] - Sna Implanted:Qty: 1 on 12/19/2021 by Biju Littlejohn MD at [facility] N/A: Spine Lumbar [employer] SOFAMOR DANEK 03/21/2023 [id number] / NA / [id number] Description:CHECKED BY LG ON 12.20.21 REQ#[id number] Stimulan Caso4 Kt 10ml 620-010 - [id number] Implanted:Qty: 1 on 12/19/2021 by Biju Littlejohn MD at [facility] [employer] 10/19/2024 620-010 / / [id number] Description:CHECKED BY LG ON 12.20.21 REQ#[id number] Spacer Catalyft Pl 7mm Xpndble Strt [id number] - [id number] Implanted:Qty: 1 on 12/19/2021 by Biju Littlejohn MD at [facility] N/A: Spine Lumbar [employer] SOFAMOR DANEK 10/30/2029 [id number] / / [id number] Hemostatic Surgiflo 8ml W/ Thrombin 2994 - Sn/A Implanted:Qty: 1 on 12/19/2021 by Biju Littlejohn MD at [facility] Hemostatic N/A: Spine Lumbar [employer] 01/19/2023 2994 / N/A / [id number] Hemostatic Surgiflo 8ml W/ Thrombin 2994 - [id number] Implanted:Qty: 1 on 12/19/2021 by Biju Littlejohn MD at [facility] Hemostatic N/A: Spine Lumbar [employer] 09/19/2022 2994 / / [id number] Cassandra Spacer 0253-2777-N Tas 7 Dg Lg 10mm Implanted:Qty: 1 on 12/19/2021 by Biju Littlejohn MD at [facility] Other N/A: Spine Lumbar [employer]K 07/04/2024 [id number] / / [id number] Description:1X ADD Cassandra Spacer 5215-1430-N Tas 7dg Std 10mm Implanted:Qty: 1 on 12/19/2021 by Biju Littlejohn MD at [facility] Other N/A: Spine Lumbar [employer] [id number]-N / / [id number] Description:1X ADD Terence Cp4 Str Ti 5.8n585gh [id number] - [id number] Implanted:Qty: 1 on 12/19/2021 by Biju Littlejohn MD at [facility] Terence N/A: Spine Lumbar [employer]K [id number] / / Description:load no: 227 227 05 sterilized: [id number] Screw Cdh 7.5x35mm 5.5/6.0 Mas Cc [id number] - [id number] Implanted:Qty: 3 on 12/19/2021 by Biju Littlejohn MD at [facility] Screw N/A: Spine Lumbar [employer]ANEK [id number] / / Description:load no: 227 227 05 sterilized: [id number] Screw Cdh 7.5x40mm 5.5/6.0 Mas Cc [id number] - [id number] Implanted:Qty: 2 on 12/19/2021 by Biju Littlejohn MD at [facility] N/A: Spine Lumbar [employer] [id number] / / Description:load no: 227 227 05 sterilized: [id number] Screw [id number] 5.5 Mas 7.5x25cc Implanted:Qty: 1 on 12/19/2021 by Biju Littlejohn MD at [facility] N/A: Spine Lumbar [employer] 11/10/2027 [id number] / / [id number] Description:1X ADD Screw [id number] Bs Cnmas 8.5x80 T/C Implanted:Qty: 2 on 12/19/2021 by Biju Littlejohn MD at [facility] N/A: Spine Lumbar [employer] 12/19/2021 [id number] / / [id number] Description:1X ADD Screw Endoskeleton 5.5x25mm Tas 7711-3923 - [id number] Implanted:Qty: 3 on 12/19/2021 by Biju Littlejohn MD at [facility] N/A: Spine Lumbar [employer] SO[employer]AMOR [employer]ANEK [id number] / / Description:load [id number] da te: 12/19/21 YANCI REQ#[id number] Screw Solera 5.5/6.0 Breakoff [id number] - [id number] Implanted:Qty: 12 on 12/19/2021 by Biju Littlejohn MD at [facility] N/A: Spine Lumbar [employer] [id number] / / Description:load no: 227 227 05 sterilized: [id number] Screw Cdh 5.5x45mm 5.5/6.0 Mas Cc [id number] - [id number] Implanted:Qty: 4 on 12/19/2021 by Biju Littlejohn MD at [facility] N/A: Spine Lumbar [employer] [id number] / / Description:load no: 227 227 05 sterilized: [id number] Josh Dbm Dbf 6ml [id number] - [id number] Implanted:Qty: 1 on 12/19/2021 by Biju Littlejohn MD at [facility] N/A: Spine Lumbar [employer] 11/10/2023 [id number] / [id number] / Description:CHECKED BY LG ON 12.20.21 REQ#[id number] Josh Dbm Dbf 6ml [id number] - [id number] Implanted:Qty: 1 on 12/19/2021 by Biju Littlejohn MD at [facility] N/A: Spine Lumbar [employer] 11/10/2023 [id number] / [id number] / Description:CHECKED BY LG ON 12.20.21 REQ#[id number] Cassandra Spacer [id number] Tas 12d Std 12mm Implanted:Qty: 1 on 12/19/2021 by Biju Littlejohn MD at [facility] N/A: Spine Lumbar [employer] [id number] / / [id number] Description:1X ADD Insurance MEDICARE PART A AND B [facility] Advance Directives For more information, please contact: [phone] Documents on File Type Date Recorded Patient Warning Coordination Meteorologist Expl anation Advance Directive Living Will 02/04/2023 10:08 AM Advance Directive POA 05/29/2022 12:52 PM Advance Directive POA 10/18/2021 10:07 AM * Full Code (Latest Code Status on File) Date Activated Date Inactivated Comments 12/19/2021 7:20 PM 12/22/2021 4:17 PM * Full Code Date Activated Date Inactivated Comments 12/19/2021 3:08 PM 12/19/2021 7:20 PM Care Teams Catering Sales Manager Relationship Specialty Start Date End Date Emily Tejada MD PCP - General Family Practice 01/14/20 Jade Bean Cardiovascular Disease 10/10/21
--- OUTSIDE RECORDS SUMMARY | 2025-02-25 10:18 | XMS_ITS | Clinical Summary ---
Author Organization [email or web address] Address [address] [place] [address] Care Team Providers Care Molder Meat Name Role Phone Tara Hudson MD Primary Care Provider [phone] Source Comments [email or web address],non-owned Affiliates and Associated Physician Practices is amultiple site organization consisting of ambulatory clinics and hospital sitesin [place], [place], [place] and [place]. This disclosure is being madepursuant to the Care Everywhere program and may not contain all information available regarding this patient. Last updated 18.[email or web address] Allergies Active Allergy Reactions Criticality Noted Date [...] on file Legal Sex Female 5:57 PM ENGINEERING TEST MECHANIC Gender Identity Not on file Sexual Orientation Not on file Last Filed Vital Signs Vital Sign Reading Time Taken Comments Blood Pressure 128/72 05/27/2018 12:26 PM ENGINEERING TEST MECHANIC Pulse 80 05/27/2018 12:26 PM ENGINEERING TEST MECHANIC Temperature 37 C (98.6 F) 05/27/2018 12:26 PM ENGINEERING TEST MECHANIC Respiratory Rate 16 05/27/2018 12:26 PM ENGINEERING TEST MECHANIC Oxygen Saturation 100% 05/27/2018 12:26 PM ENGINEERING TEST MECHANIC Inhaled Oxygen Concentration - - Weight 52.2 kg (115 lb) 05/27/2018 12:26 PM ENGINEERING TEST MECHANIC Height 162.6 cm (5' 4) 05/27/2018 12:26 PM ENGINEERING TEST MECHANIC Body Mass Index 19.74 05/27/2018 12:26 PM ENGINEERING TEST MECHANIC Plan of Treatment Health Maintenance Due Date [...] topic Insurance MEDICARE MEDICARE MEDICARE Care Teams Molder Meat Relationship Specialty Start Date End Date Tara Hudson MD [address] [place] [address] [place] [address] PCP - General 12/12/12
== END 2025-02-24 10:40 | disposition home or self-care (01) ==
LOC: ANHGOSHLAB 10:41
PROVIDERS: PCP Nurse Practitioner Family; Visit Provider Internal Medicine Cardiovascular Disease
DX: R74.01 Elevation of levels of liver transaminase levels (principal)
CPT/HCPCS: 36415; 80076